=== PATIENT | male | born 1955 | race Two or more races ===

== ENCOUNTER 2020-08-01 13:00 | Inpatient (IN) | payer MEDICAID ==
[2020-08-01] VITALS (9 sets, daily range): BP systolic 104–137; BP diastolic 67–85
[~2020-08-01] VITALS: Ht 170.2 cm; Wt 79.4 kg
[~2020-08-01 13:00] MED LIST: Acetaminophen 650 MG SUPP RECTAL ONE; Azithromycin 500 MG in NS 275 ML IVPB ONE; cefTRIAXone 1 GM in NS 55 ML IV ONE; dexAMETHasone 10mg/ml Inj IV ONE
--- NOTE | 2020-08-01 13:14 | Emergency Room Report ---
History of Present Illness General Chief Complaint: Dyspnea/Respdistress Source: EMS (Marleny Godfrey D.O.) Present Illness HPI 65-year-old male with past medical history of chronic respiratory failure status post trach, left thalamic hemorrhage, diabetes, hypertension, chronically bedridden presents by ambulance with hypoxia. According to EMS, longterm facility staff called 911 secondary to respiratory distress. History is limited secondary patient's clinical condition The patient's symptoms were acute onset, severity was severe, duration since 1 hour. Quality: Hypoxic Patient is full code Past medical history: Hypertension, diabetes, GERD, chronic vent dependence, recent left thalamic hemorrhage Past surgical history: Tracheostom Smoking: Unable to obtain Alcohol use: Unable to obtain Drug use: Unable to obtain Review of systems: ROS is limited secondary to patient's clinical condition Physical Exam: GENERAL: Awake_alert_ nontoxic, no acute distress Spo2 80% on RA -abnormal. Patient is being bagged manually awaiting respiratory therapy. EYES: Pupils reactive. Conjunctiva clear. Horizontal nystagmus. Pale appearing ENT: Trach is in place. No bleeding. No bubbling around the wound. External nose and ear appear normal. Oropharynx clear. Head atraumatic. NECK: No thyromegaly. No midline tenderness. Trach in place, c/d/i, no discharge or bleeding. LUNGS: Coarse breath sounds bilaterally. CARDIAC: Tachycardic rate and rhythm. Normal radial pulses bilaterally. No significant pedal edema. ABDOMEN: Soft, nontender, and nondistended. No rebound/guarding. No hepatosplenomegaly. MSK: Poor muscle tone, contractures with rigidity in extremities. Extremities without asymmetric deformity or swelling. NEUROLOGIC: Awake. Does not follow commands for motor and sensory exam.GCS 2-4-2, protecting airway, intact gag reflex. Withdraws to pain in extremities, groans and opens eyes to sternal rub. SKIN: Warm and dry. No cyanosis or urticaria present. - COORDINATION OF CARE Case was discussed with: Patient , Patient's Physician Any labs and imaging that were ordered were interpreted as part of the medical decision making: Medical Decision Making/Plan: Differential diagnosis includes sepsis / severe sepsis , cellulitis UTI, pneumonia , viral syndrome, gastroenteritis, emergent abdominal infection, among others. Vitals show hypoxia, tachycardia, and fever trach is clean, dry, intact. Patient was initially hypoxic, however when he was placed on a vent at FiO2 of 30%, hypoxia resolved. CXR shows no acute disease. Trach is in place. No pneumothorax. Covid swab is negative. Labs show several abnormalities. Troponin is elevated. EKG shows sinus tachycardia. He has minimal ST depressions in the inferior leads, likely subendocardial ischemia. No acute STEMI. There are T wave inversions in the lateral leads V4 through V6. No STEMI. Labs otherwise demonstrate new onset renal failure with creatinine of 4.2. Patient also has severe leukocytosis with WBC count of 22.2. Suspect bacteremia Sepsis bundle initiated on arrival. Blood cultures, lactate drawn. Lactate was elevated, patient was given not 30 cc/kg IV fluids by bolus due to concern for Covid. Empiric antibiotics were started. Patient will be admitted to the ICU for further care and evaluation. - CRITICAL CARE STATEMENT - Critical care performed 45 minutes) Time is exclusive of separately billable procedures. Time includes: direct patient care, patient reassessment, coordination of patient care, review of patient's medical records, medical consultation, family consultation regarding treatment decisions and documentation of patient care. Organ systems at risk: Cardiac / Circulatory /renal (Marleny Godfrey D.O.) Allergies: Coded Allergies: No Known Allergies (Unverified , 08/01/20) COVID-19 Screening Contact w/high risk pt: No Experienced COVID-19 symptoms?: No COVID-19 Testing performed SLIPCOVER CUTTER: No (Marleny Godfrey D.O.) Physical Exam Vital Signs Date Time Temp Pulse Resp B/P (MAP) Pulse Ox O2 Delivery O2 Flow Rate FiO2 08/01/20 12:53 115 46 106/77 (87) 99 Ambu-Bag Sp02 EP Interpretation: reviewed, abnormal (Marleny Godfrey.Ace) Medical Decision Making Diagnostic Impression: Primary Impression: Respiratory distress Additional Impressions: Renal failure NSTEMI (non-ST elevated myocardial infarction) Metabolic acidosis ER Course Patient signed out to me by previous physician. Patient was accepted for admission to ICU by Dr. Muriel roberts. Awaiting admission. (Fredrick Mckinney M.D.) EKG Diagnostic Results JOE Scribe Text 12-lead EKG (interpreted by me) Time: 1316 Indication: Rhythm analysis Tracing visualized and Interpreted by me. Rhythm: Sinus tachycardia Rate: 111 bpm QTc: 454 Morphology: No_significant_ST_elevations_or_depressions, No STEMI Impression: Sinus tachycardia. ST depressions in the inferior leads. T wave inversions V4 through V6. (Marleny Godfrey D.O.) Rhythm Strip Diag. Results Rhythm Strip Time: 15:20 EP Interpretation: yes Rate: 93 Rhythm: no PVC's, no ectopy (Marleny Godfrey D.O.) Chest X-Ray Diagnostic Results Chest X-Ray Diagnostic Results : JOE Weller Text Chest X-Ray: Views: [ 1 ] view(s) Indication: hypoxia Findings: Normal heart size. Mediastinum normal. No infiltrate. Impression: No acute disease The X-ray(s) were independently viewed and interpreted contemporaneously Electronically signed by Marleny becker DO (Marleny Godfrey D.O.) Reevaluation Time: 15:21 Last Vital Signs Date Time Temp Pulse Resp B/P (MAP) Pulse Ox O2 Delivery O2 Flow Rate FiO2 08/01/20 12:53 115 46 106/77 (87) 99 Ambu-Bag Status: improved (Marleny Godfrey D.O.) Disposition: ADMITTED INPATIENT Admit Decision Time: 15:21 (Marleny Godfrey D.O.) Condition: Critical Marleny Godfrey D.O. Aug 01, 2020 13:14 Fredrick Mckinney M.D. Aug 01, 2020 17:48
[2020-08-01] MEDS ORDERED: Azithromycin 500mg Inj ONE (13:25)
[2020-08-01] MEDS ORDERED: dexAMETHasone 10mg/ml Inj IV ONE (13:25)
[2020-08-01] MEDS ORDERED: Acetaminophen 650 MG SUPP RECTAL ONE (13:25)
[2020-08-01 13:37] LABS: APPEARANCE,URINE CLEAR; BILIRUBIN, URINE NEGATIVE (NEGATIVE); GLUCOSE, URINE (UA) 1+ (NEGATIVE); KETONES,URINE NEGATIVE (NEGATIVE); LEUKOCYTE ESTERASE ,URINE 1+ (NEGATIVE); NITRITE,URINE NEGATIVE (NEGATIVE); PH,URINE 5 (4.5-8.0); PROTEIN,URINE 2+ (NEGATIVE); UROBILINOGEN,URINE NORMAL MG/DL (0.0-1.0)
[2020-08-01 13:57] LABS: INR 1.1 (0.9-1.1)
[2020-08-01 13:58] LABS: HEMATOCRIT 34.1 % (42.0-52.0); HEMOGLOBIN 11.5 G/DL (14.2-18.0); MEAN CORPUSCULAR VOLUME 90 FL (80-99); PLATELET COUNT 183 K/UL (150-450); RED BLOOD COUNT 3.78 M/UL (4.70-6.10); RED CELL DISTRIBUTION WIDTH 16.4 % (11.6-14.8)
[2020-08-01 14:02] LABS: WHITE BLOOD COUNT 22.2 K/UL (4.8-10.8)
[2020-08-01 14:04] LABS: CALCIUM 8.6 MG/DL (8.5-10.1); CREATININE 4.2 MG/DL (0.55-1.30); POTASSIUM 4.9 MMOL/L (3.5-5.1)
[2020-08-01 14:07] LABS: COLOR,URINE YELLOW
[2020-08-01 14:09] LABS: ALBUMIN 2.7 G/DL (3.4-5.0); ALBUMIN/GLOBULIN RATIO 0.6 (1.0-2.7); BILIRUBIN,TOTAL 0.8 MG/DL (0.2-1.0); CKMB 2.7 NG/ML (0.0-3.6)
--- NOTE | 2020-08-01 14:27 | Diagnostic Imaging Report ---
Indication: Cough Technique: One view of the chest Comparison: none Findings: Lungs and pleural spaces are clear. Heart size is normal. There is a tracheostomy Impression: No acute process
[2020-08-01] MEDS ORDERED: Piperacillin/Tazobactam 3.375 GM in NS 110 ML IVPB ONE (14:30)
[2020-08-01] MEDS ORDERED: DOCUSATE SODIU100 MG GT (16:30)
[2020-08-01] MEDS ORDERED: REGLAN10 MG GT (16:30)
[2020-08-01] MEDS ORDERED: GLYCOPYRROLATE2 MG GT (16:30)
[2020-08-01] MEDS ORDERED: COMBIVENT RESPIM4 GM IH (16:30)
[2020-08-01] MEDS ORDERED: ACETAMINOP160 MG/5 M GT (16:30)
[2020-08-01] MEDS ORDERED: ZOFRAN4 M3 GT (16:30)
[2020-08-01] MEDS ORDERED: FUROSEMIDE20 M1 GT (16:30)
[2020-08-01] MEDS ORDERED: METOPROLOL TART50 MG GT (16:30)
--- NOTE | 2020-08-01 18:13 | History and Physical ---
History of Present Illness General Date patient seen: Aug 01, 2020 Reason for Hospitalization: Dyspnea/Respdistress Present Illness HPI Dannie Dias is a 65 yo male with PMH of chronic respiratory failure s/p tracheostomy, left thalamic hemorrhage, diabetes, HTN, bedbound presents from SNF with hypoxia. According to ER physician, patient required bagging on arrival due to hypoxia that improved once patient placed on ventilator. Patient was given IVF bolus, antibiotics. History is limited secondary patient's clinical condition From chart review: Past medical history: Hypertension, diabetes, GERD, chronic vent dependence, recent left thalamic hemorrhage Past surgical history: Tracheostom Smoking: Unable to obtain Alcohol use: Unable to obtain Drug use: Unable to obtain Review of systems: ROS is limited secondary to patient's clinical condition Allergies: Coded Allergies: No Known Allergies (Unverified , 08/01/20) COVID-19 Screening Contact w/high risk pt: No Experienced COVID-19 symptoms?: No Medication History Scheduled Docusate Sodium* (Docusate Sodium*), 100 MG GT TWICE A DAY, (Reported) Furosemide* (Lasix*), 20 MG GT Q12HR, (Reported) Glycopyrrolate (Glycopyrrolate), 1 MG GT Q8HR, (Reported) Ipratropium/Albuterol Sulfate (Combivent Respimat Inhal [place]), 4 GM IH EVERY 2 HOURS, (Reported) Metoclopramide Hcl* (Reglan*), 10 MG ORAL Q6HR, (Reported) Metoprolol Tartrate* (Metoprolol Tartrate*), 50 MG ORAL EVERY 12 HOURS, (Reported) Scheduled PRN Acetaminophen 160MG/5ML* (Acetaminophen*), 20.3 ML GT Q6HR PRN for pain/fever, (Reported) Ondansetron* (Zofran*), 4 MG ORAL Q8HR PRN for Nausea & Vomiting, (Reported) Patient History Limited by: medical condition History Provided By: Medical Record Healthcare decision maker Resuscitation status Advanced Directive on File Physical Exam General Appearance: lethargic Lines, tubes and drains: trach HEENT: normocephalic, atraumatic, mucous membranes moist Neck: normal alignment Respiratory/Chest: rhonchi - bilaterally Cardiovascular/Chest: normal peripheral pulses, regular rhythm Abdomen: soft, no mass, feeding tube Extremities: no edema, no cyanosis Skin Exam: normal pigmentation, warm/dry Neurologic: unresponsiveness Last 24 Hour Vital Signs Date Time Temp Pulse Resp B/P (MAP) Pulse Ox O2 Delivery O2 Flow Rate FiO2 08/01/20 17:28 98.6 95 24 110/72 100 Mechanical Ventilator 40 08/01/20 15:03 98.6 93 27 110/67 100 Mechanical Ventilator 08/01/20 14:33 105 38 40 08/01/20 13:56 98.6 08/01/20 13:26 98 41 30 08/01/20 13:21 100.6 110 27 109/76 99 Mechanical Ventilator 08/01/20 13:08 115 46 Ambu-Bag 08/01/20 12:53 115 46 106/77 (87) 99 Ambu-Bag Laboratory Tests Test 08/01/20 13:10 08/01/20 13:38 White Blood Count 22.2 K/UL (4.8-10.8) *H Red Blood Count 3.78 M/UL (4.70-6.10) L Hemoglobin 11.5 G/DL (14.2-18.0) L Hematocrit 34.1 % (42.0-52.0) L Mean Corpuscular Volume 90 FL (80-99) Mean Corpuscular Hemoglobin 30.3 PG (27.0-31.0) Mean Corpuscular Hemoglobin Concent 33.6 G/DL (32.0-36.0) Red Cell Distribution Width 16.4 % (11.6-14.8) H Platelet Count 183 K/UL (150-450) Mean Platelet Volume 12.3 FL (6.5-10.1) H Neutrophils (%) (Auto) % (45.0-75.0) Lymphocytes (%) (Auto) % (20.0-45.0) Monocytes (%) (Auto) % (1.0-10.0) Eosinophils (%) (Auto) % (0.0-3.0) Basophils (%) (Auto) % (0.0-2.0) Differential Total Cells Counted 100 Neutrophils % (Manual) 84 % (45-75) H Lymphocytes % (Manual) 8 % (20-45) L Monocytes % (Manual) 3 % (1-10) Eosinophils % (Manual) 0 % (0-3) Basophils % (Manual) 0 % (0-2) Band Neutrophils 5 % (0-8) Platelet Estimate Adequate Platelet Morphology Normal Hypochromasia 1+ Anisocytosis 1+ Prothrombin Time 11.8 SEC (9.30-11.50) H Prothromb Time International Ratio 1.1 (0.9-1.1) Activated Partial Thromboplast Time 22 SEC (23-33) L D-Dimer 4.70 mg/L FEU (0.00-0.49) H Urine Color Yellow Urine Appearance Clear Urine pH 5 (4.5-8.0) Urine Specific [place] 1.015 (1.005-1.035) Urine Protein 2+ (NEGATIVE) H Urine Glucose (UA) 1+ (NEGATIVE) H Urine Ketones Negative (NEGATIVE) Urine Blood 1+ (NEGATIVE) H Urine Nitrite Negative (NEGATIVE) Urine Bilirubin Negative (NEGATIVE) Urine Urobilinogen Normal MG/DL (0.0-1.0) Urine Leukocyte Esterase 1+ (NEGATIVE) H Urine RBC 0-2 /HPF (0 - 0) H Urine WBC 2-4 /HPF (0 - 0) Urine Squamous Epithelial Cells Occasional /LPF Urine Bacteria Occasional /HPF (NONE) Sodium Level 149 MMOL/L (136-145) H Potassium Level 4.9 MMOL/L (3.5-5.1) Chloride Level 111 MMOL/L (98-107) H Carbon Dioxide Level 13 MMOL/L (21-32) L Anion Gap 25 mmol/L (5-15) H Blood Urea Nitrogen 346 mg/dL (7-18) H Creatinine 4.2 MG/DL (0.55-1.30) H Estimat Glomerular Filtration Rate 14.3 mL/min (>60) Glucose Level 202 MG/DL (74-106) H Lactic Acid Level 1.40 mmol/L (0.4-2.0) Calcium Level 8.6 MG/DL (8.5-10.1) Phosphorus Level 10.0 MG/DL (2.5-4.9) H Magnesium Level 3.5 MG/DL (1.8-2.4) H Ferritin 730 NG/ML (8-388) H Total Bilirubin 0.8 MG/DL (0.2-1.0) Aspartate Amino Transf (AST/SGOT) 40 U/L (15-37) H Alanine Aminotransferase (ALT/SGPT) 261 U/L (12-78) H Alkaline Phosphatase 235 U/L (46-116) H Lactate Dehydrogenase 213 U/L (81-234) Total Creatine Kinase 98 U/L (26-308) Creatine Kinase MB 2.7 NG/ML (0.0-3.6) Creatine Kinase MB Relative Index 2.7 Troponin I 0.806 ng/mL (0.000-0.056) C-Reactive Protein, Quantitative 0.9 mg/dL (0.00-0.90) Pro-B-Type Natriuretic Peptide 1395 pg/mL (0-125) H Total Protein 7.6 G/DL (6.4-8.2) Albumin 2.7 G/DL (3.4-5.0) L Globulin 4.9 g/dL Albumin/Globulin Ratio 0.6 (1.0-2.7) L Arterial Blood pH 7.241 (7.350-7.450) Arterial Blood Partial Pressure CO2 23.5 mmHg (35.0-45.0) *L Arterial Blood Partial Pressure O2 84.0 mmHg (75.0-100.0) Arterial Blood HCO3 9.9 mmol/L (22.0-26.0) *L Arterial Blood Oxygen Saturation 95.5 % (95-100) Arterial Blood Base Excess -15.7 (-2-2) *L Russ Test Positive Microbiology Date/Time Source Procedure Growth Status 08/01/20 16:06 Nasal Nares - Final Complete 08/01/20 16:06 Nasal Nares - Final Complete 08/01/20 13:10 Nasopharynx SARS-CoV-2 RdRp Gene Assay - Final Complete Height (Feet): 5 Height (Inches): 10.00 Weight (Pounds): 185 Objective Narrative CXR 08/01/2020 Procedure: XRAY Chest 1v Indication: Cough Technique: One view of the chest Comparison: none Findings: Lungs and pleural spaces are clear. Heart size is normal. There is a tracheostomy Impression: No acute process Assessment/Plan Assessment/Plan: #Sepsis - high WBC count, lactate elevated. HDS currently. #UTI #NSTEMI - may be demand ischemia in sepsis #Acute kidney injury - may be sepsis related - s/p CTX, zosyn, IVF in ED - cefepime - low threshold to broaden antibiotics - f/u cultures - IVF - trend troponin - ID consult Dr. Stone - Nephro consult Dr. Sherman - Cardiology consult Dr. Mari #Chronic respiratory failure #s/p tracheostomy #PEG status - Ventilator dependent - In ICU for ventilator - check ABG in AM - CXR clear, low suspicion for pneumonia - Covid negative - pulmonary consult Dr. Nunez - tube feed - nutrition consult #Hx of thalamic infarct - nonverbal, lethargic currently - neurology consult Dr. Hale #Diabetes - ISS Fluids: IVF Diet: tube feed DVT ppx: heparin Code: FULL I spent 74 minutes on this patient's case, and 40 minutes were dedicated to counseling and/or care coordination. Discussed with ID and pulmonology consultants. Time of note may not reflect time of encounter Davidson Guzmán M.D. Aug 01, 2020 18:13
[2020-08-01] MEDS: Cefepime HCl 1 GM in D5W 55 ML IVPB SCH (20:09)
[2020-08-01] MEDS: Heparin 5000 units/ml inj SUBQ SCH (20:10)
[2020-08-01] MEDS: NovoLOG Insulin Flexpen SUBQ SCH (20:41)
--- NOTE | 2020-08-01 21:01 | Consultation ---
DATE OF CONSULTATION: 08/01/2020 PULMONARY CONSULTATION CONSULTING PHYSICIAN: Jack Nunez MD HISTORY OF PRESENT ILLNESS: This is a 65-year-old male with a history of chronic respiratory failure with chronic tracheostomy in place, who was sent in by paramedics due to hypoxemia. Patient is a care home resident. He is unable to provide any questions or provide any answers. Patient was noted to have a tracheostomy in place. He is placed currently in the ICU. PAST MEDICAL HISTORY: Notable for chronic respiratory failure, chronic tracheostomy, previous CVA, diabetes mellitus, hypertension, bedridden status, care home resident. HOME MEDICATIONS: Reviewed and reconciled in the chart. REVIEW OF SYSTEMS: Not obtainable. SMOKING HISTORY: Not known. SOCIAL HISTORY: Not known. MEDICATIONS: His list of current medications include azithromycin, cefepime, Rocephin, Zosyn, Tylenol, and Decadron. PHYSICAL EXAMINATION: GENERAL: Reveals a 65-year-old male. HEENT: Unremarkable. Tracheostomy site is clean. CHEST: Clear breath sounds bilaterally. ABDOMEN: Soft. EXTREMITIES: There is no edema. NEUROLOGIC: Nonfocal. VITAL SIGNS: Blood pressure , heart rate is 94, respirations 18. Vent settings AC FiO2 40%, saturation 100%. X-ray chest shows clear lung johnson bilaterally. Tracheostomy site is noted. COVID testing is negative so far. LABORATORY DATA: Lab testing is notable for white count 22,000. Sodium 149, creatinine 4.2. Coags show D-dimer of 4.7. ABG, pH 7.24, pCO2 23, pO2 84. IMPRESSION: 1. Chronic respiratory failure. 2. Metabolic acidosis. 3. Renal failure. 4. Leukocytosis. 5. Sepsis. DISCUSSION: Admit to the hospital. Agree with broad spectrum antibiotics. We will continue AC mode. Patient will need bicarbonate supplementation. Recommend Nephrology consultation. We will follow carefully. Jack Nunez M.D. DR: ALISHA JOB#: [id number] CC:
--- NOTE | 2020-08-01 22:10 | Neurology Progress Note ---
Interim History Interim History Interim History 65 yo male with PMH of chronic respiratory failure s/p tracheostomy, left thalamic hemorrhage, diabetes, HTN, bedbound presents from SNF with hypoxia. According to ER physician, patient required bagging on arrival due to hypoxia that improved once patient placed on ventilator. Patient was given IVF bolus, antibiotics. History is limited secondary patient's clinical condition Past medical history: Hypertension, diabetes, GERD, chronic vent dependence, recent left thalamic hemorrhage Past surgical history: Tracheostomy Objective Physical Exam Last Vital Signs Date Time Temp Pulse Resp B/P (MAP) Pulse Ox O2 Delivery O2 Flow Rate FiO2 08/01/20 21:14 Mechanical Ventilator 08/01/20 20:00 40 08/01/20 19:46 95 29 08/01/20 19:30 98.6 108/75 100 Laboratory Tests Test 08/01/20 13:10 08/01/20 13:38 White Blood Count 22.2 K/UL (4.8-10.8) *H Red Blood Count 3.78 M/UL (4.70-6.10) L Hemoglobin 11.5 G/DL (14.2-18.0) L Hematocrit 34.1 % (42.0-52.0) L Mean Corpuscular Volume 90 FL (80-99) Mean Corpuscular Hemoglobin 30.3 PG (27.0-31.0) Mean Corpuscular Hemoglobin Concent 33.6 G/DL (32.0-36.0) Red Cell Distribution Width 16.4 % (11.6-14.8) H Platelet Count 183 K/UL (150-450) Mean Platelet Volume 12.3 FL (6.5-10.1) H Neutrophils (%) (Auto) % (45.0-75.0) Lymphocytes (%) (Auto) % (20.0-45.0) Monocytes (%) (Auto) % (1.0-10.0) Eosinophils (%) (Auto) % (0.0-3.0) Basophils (%) (Auto) % (0.0-2.0) Differential Total Cells Counted 100 Neutrophils % (Manual) 84 % (45-75) H Lymphocytes % (Manual) 8 % (20-45) L Monocytes % (Manual) 3 % (1-10) Eosinophils % (Manual) 0 % (0-3) Basophils % (Manual) 0 % (0-2) Band Neutrophils 5 % (0-8) Platelet Estimate Adequate Platelet Morphology Normal Hypochromasia 1+ Anisocytosis 1+ Prothrombin Time 11.8 SEC (9.30-11.50) H Prothromb Time International Ratio 1.1 (0.9-1.1) Activated Partial Thromboplast Time 22 SEC (23-33) L D-Dimer 4.70 mg/L FEU (0.00-0.49) H Urine Color Yellow Urine Appearance Clear Urine pH 5 (4.5-8.0) Urine Specific [place] 1.015 (1.005-1.035) Urine Protein 2+ (NEGATIVE) H Urine Glucose (UA) 1+ (NEGATIVE) H Urine Ketones Negative (NEGATIVE) Urine Blood 1+ (NEGATIVE) H Urine Nitrite Negative (NEGATIVE) Urine Bilirubin Negative (NEGATIVE) Urine Urobilinogen Normal MG/DL (0.0-1.0) Urine Leukocyte Esterase 1+ (NEGATIVE) H Urine RBC 0-2 /HPF (0 - 0) H Urine WBC 2-4 /HPF (0 - 0) Urine Squamous Epithelial Cells Occasional /LPF Urine Bacteria Occasional /HPF (NONE) Sodium Level 149 MMOL/L (136-145) H Potassium Level 4.9 MMOL/L (3.5-5.1) Chloride Level 111 MMOL/L (98-107) H Carbon Dioxide Level 13 MMOL/L (21-32) L Anion Gap 25 mmol/L (5-15) H Blood Urea Nitrogen 346 mg/dL (7-18) H Creatinine 4.2 MG/DL (0.55-1.30) H Estimat Glomerular Filtration Rate 14.3 mL/min (>60) Glucose Level 202 MG/DL (74-106) H Lactic Acid Level 1.40 mmol/L (0.4-2.0) Calcium Level 8.6 MG/DL (8.5-10.1) Phosphorus Level 10.0 MG/DL (2.5-4.9) H Magnesium Level 3.5 MG/DL (1.8-2.4) H Ferritin 730 NG/ML (8-388) H Total Bilirubin 0.8 MG/DL (0.2-1.0) Aspartate Amino Transf (AST/SGOT) 40 U/L (15-37) H Alanine Aminotransferase (ALT/SGPT) 261 U/L (12-78) H Alkaline Phosphatase 235 U/L (46-116) H Lactate Dehydrogenase 213 U/L (81-234) Total Creatine Kinase 98 U/L (26-308) Creatine Kinase MB 2.7 NG/ML (0.0-3.6) Creatine Kinase MB Relative Index 2.7 Troponin I 0.806 ng/mL (0.000-0.056) C-Reactive Protein, Quantitative 0.9 mg/dL (0.00-0.90) Pro-B-Type Natriuretic Peptide 1395 pg/mL (0-125) H Total Protein 7.6 G/DL (6.4-8.2) Albumin 2.7 G/DL (3.4-5.0) L Globulin 4.9 g/dL Albumin/Globulin Ratio 0.6 (1.0-2.7) L Arterial Blood pH 7.241 (7.350-7.450) Arterial Blood Partial Pressure CO2 23.5 mmHg (35.0-45.0) *L Arterial Blood Partial Pressure O2 84.0 mmHg (75.0-100.0) Arterial Blood HCO3 9.9 mmol/L (22.0-26.0) *L Arterial Blood Oxygen Saturation 95.5 % (95-100) Arterial Blood Base Excess -15.7 (-2-2) *L Russ Test Positive Impression/Recommendations Problems: (1) Respiratory distress (2) Renal failure (3) Metabolic acidosis (4) NSTEMI (non-ST elevated myocardial infarction) (5) Sepsis Diagnostic Impression Encephalopathy, likely metabolic sepsis hx of left thalamic hemorrhage likely from htn icu level map > 65 monitor mental status cont atb fu cultures ok for heparin SC given ich is chronic Pedro Hale MD Aug 01, 2020 22:10
[2020-08-02] VITALS (24 sets, daily range): BP systolic 100–147; BP diastolic 65–86
[2020-08-02 05:05] LABS: HEMATOCRIT 29.4 % (42.0-52.0); MEAN CORPUSCULAR VOLUME 89 FL (80-99); PLATELET COUNT 127 K/UL (150-450); RED CELL DISTRIBUTION WIDTH 15.8 % (11.6-14.8); WHITE BLOOD COUNT 17.6 K/UL (4.8-10.8)
[2020-08-02 05:22] LABS: CREATININE 4.1 MG/DL (0.55-1.30); POTASSIUM 3.5 MMOL/L (3.5-5.1)
[2020-08-02] MEDS: NovoLOG Insulin Flexpen SUBQ SCH (05:29)
[2020-08-02] MEDS: Heparin 5000 units/ml inj SUBQ SCH ×2 (08:32→20:38)
--- NOTE | 2020-08-02 09:00 | Consultation ---
History of Present Illness General Chief Complaint: Dyspnea/Respdistress Reason for Consultation: AUNDREA Present Illness HPI 65 yo male with PMH of chronic respiratory failure s/p tracheostomy, left thalamic hemorrhage, diabetes, HTN, bedbound presents from SNF with hypoxia. According to ER physician, patient required bagging on arrival due to hypoxia that improved once patient placed on ventilator. Patient was given IVF bolus, antibiotics. History is limited secondary patient's clinical condition Past medical history: Hypertension, diabetes, GERD, chronic vent dependence, recent left thalamic hemorrhage Past surgical history: Tracheostomy Allergies: Coded Allergies: No Known Allergies (Unverified , 08/01/20) Medication History Scheduled Docusate Sodium* (Docusate Sodium*), 100 MG GT TWICE A DAY, (Reported) Furosemide* (Lasix*), 20 MG GT Q12HR, (Reported) Glycopyrrolate (Glycopyrrolate), 1 MG GT Q8HR, (Reported) Ipratropium/Albuterol Sulfate (Combivent Respimat Inhal [place]), 4 GM IH EVERY 2 HOURS, (Reported) Metoclopramide Hcl* (Reglan*), 10 MG ORAL Q6HR, (Reported) Metoprolol Tartrate* (Metoprolol Tartrate*), 50 MG ORAL EVERY 12 HOURS, (Reported) Scheduled PRN Acetaminophen 160MG/5ML* (Acetaminophen*), 20.3 ML GT Q6HR PRN for pain/fever, (Reported) Ondansetron* (Zofran*), 4 MG ORAL Q8HR PRN for Nausea & Vomiting, (Reported) Patient History Healthcare decision maker Resuscitation status Advanced Directive on File Review of Systems ROS Narrative unable to obtain due to AMS Physical Exam General Appearance: lethargic Lines, tubes and drains: peripheral HEENT: normocephalic, atraumatic Neck: non-tender, trach Respiratory/Chest: chest wall non-tender, rhonchi - bilaterally Cardiovascular/Chest: normal peripheral pulses, normal rate Abdomen: normal bowel sounds, non tender Extremities: normal range of motion Last 24 Hour Vital Signs Date Time Temp Pulse Resp B/P (MAP) Pulse Ox O2 Delivery O2 Flow Rate FiO2 08/02/20 07:00 105 26 119/82 (94) 100 08/02/20 06:00 104 28 127/80 (96) 100 08/02/20 05:00 106 30 147/86 (106) 100 08/02/20 04:00 102 08/02/20 04:00 40 08/02/20 04:00 Mechanical Ventilator 08/02/20 04:00 98.6 101 30 111/77 (88) 100 08/02/20 03:15 105 27 40 08/02/20 03:00 100 29 114/76 (89) 100 08/02/20 02:00 101 30 119/77 (91) 100 08/02/20 01:00 99 25 137/83 (101) 100 08/02/20 00:06 101 08/02/20 00:00 99.0 99 26 118/78 (91) 100 08/02/20 00:00 40 08/02/20 00:00 Mechanical Ventilator 08/01/20 23:31 97 31 40 08/01/20 23:00 101 28 130/79 (96) 100 08/01/20 22:00 95 27 124/85 (98) 100 08/01/20 21:14 Mechanical Ventilator 08/01/20 21:00 96 26 125/81 (96) 100 08/01/20 20:00 40 08/01/20 20:00 98.2 100 24 126/72 (90) 100 08/01/20 20:00 Mechanical Ventilator 08/01/20 19:55 101 08/01/20 19:46 95 29 40 08/01/20 19:39 99 20 137/84 (101) 100 08/01/20 19:30 98.6 91 18 108/75 100 Mechanical Ventilator 40 08/01/20 19:10 98.6 97 18 104/69 100 Mechanical Ventilator 40 08/01/20 17:28 98.6 95 24 110/72 100 Mechanical Ventilator 40 08/01/20 15:03 98.6 93 27 110/67 100 Mechanical Ventilator 08/01/20 14:33 105 38 40 08/01/20 13:56 98.6 08/01/20 13:26 98 41 30 08/01/20 13:21 100.6 110 27 109/76 99 Mechanical Ventilator 08/01/20 13:08 115 46 Ambu-Bag 08/01/20 12:53 115 46 106/77 (87) 99 Ambu-Bag Intake and Output 08/01/20 08/02/20 19:00 07:00 Intake Total 1440 ml 730 ml Output Total 1 ml 1520 ml Balance 1439 ml -790 ml Intake IV Total 1440 ml 730 ml Output Urine Total 1 ml 1520 ml # Bowel Movements 3 Laboratory Tests Test 08/01/20 13:10 08/01/20 13:38 08/01/20 23:00 08/02/20 03:50 White Blood Count 22.2 K/UL (4.8-10.8) *H 17.6 K/UL (4.8-10.8) H Red Blood Count 3.78 M/UL (4.70-6.10) L 3.30 M/UL (4.70-6.10) L Hemoglobin 11.5 G/DL (14.2-18.0) L 10.0 G/DL (14.2-18.0) L Hematocrit 34.1 % (42.0-52.0) L 29.4 % (42.0-52.0) L Mean Corpuscular Volume 90 FL (80-99) 89 FL (80-99) Mean Corpuscular Hemoglobin 30.3 PG (27.0-31.0) 30.2 PG (27.0-31.0) Mean Corpuscular Hemoglobin Concent 33.6 G/DL (32.0-36.0) 34.0 G/DL (32.0-36.0) Red Cell Distribution Width 16.4 % (11.6-14.8) H 15.8 % (11.6-14.8) H Platelet Count 183 K/UL (150-450) 127 K/UL (150-450) L Mean Platelet Volume 12.3 FL (6.5-10.1) H 11.9 FL (6.5-10.1) H Neutrophils (%) (Auto) % (45.0-75.0) % (45.0-75.0) Lymphocytes (%) (Auto) % (20.0-45.0) % (20.0-45.0) Monocytes (%) (Auto) % (1.0-10.0) % (1.0-10.0) Eosinophils (%) (Auto) % (0.0-3.0) % (0.0-3.0) Basophils (%) (Auto) % (0.0-2.0) % (0.0-2.0) Differential Total Cells Counted 100 Neutrophils % (Manual) 84 % (45-75) H Pending Lymphocytes % (Manual) 8 % (20-45) L Pending Monocytes % (Manual) 3 % (1-10) Eosinophils % (Manual) 0 % (0-3) Basophils % (Manual) 0 % (0-2) Band Neutrophils 5 % (0-8) Platelet Estimate Adequate Pending Platelet Morphology Normal Pending Hypochromasia 1+ Anisocytosis 1+ Prothrombin Time 11.8 SEC (9.30-11.50) H Prothromb Time International Ratio 1.1 (0.9-1.1) Activated Partial Thromboplast Time 22 SEC (23-33) L D-Dimer 4.70 mg/L FEU (0.00-0.49) H Urine Color Yellow Urine Appearance Clear Urine pH 5 (4.5-8.0) Urine Specific [place] 1.015 (1.005-1.035) Urine Protein 2+ (NEGATIVE) H Urine Glucose (UA) 1+ (NEGATIVE) H Urine Ketones Negative (NEGATIVE) Urine Blood 1+ (NEGATIVE) H Urine Nitrite Negative (NEGATIVE) Urine Bilirubin Negative (NEGATIVE) Urine Urobilinogen Normal MG/DL (0.0-1.0) Urine Leukocyte Esterase 1+ (NEGATIVE) H Urine RBC 0-2 /HPF (0 - 0) H Urine WBC 2-4 /HPF (0 - 0) Urine Squamous Epithelial Cells Occasional /LPF Urine Bacteria Occasional /HPF (NONE) Sodium Level 149 MMOL/L (136-145) H 154 MMOL/L (136-145) H Potassium Level 4.9 MMOL/L (3.5-5.1) 3.5 MMOL/L (3.5-5.1) Chloride Level 111 MMOL/L (98-107) H 116 MMOL/L (98-107) H Carbon Dioxide Level 13 MMOL/L (21-32) L 11 MMOL/L (21-32) L Anion Gap 25 mmol/L (5-15) H 27 mmol/L (5-15) H Blood Urea Nitrogen 346 mg/dL (7-18) H 343 mg/dL (7-18) H Creatinine 4.2 MG/DL (0.55-1.30) H 4.1 MG/DL (0.55-1.30) H Estimat Glomerular Filtration Rate 14.3 mL/min (>60) 14.7 mL/min (>60) Glucose Level 202 MG/DL (74-106) H 144 MG/DL (74-106) H Lactic Acid Level 1.40 mmol/L (0.4-2.0) 0.90 mmol/L (0.4-2.0) Calcium Level 8.6 MG/DL (8.5-10.1) 8.0 MG/DL (8.5-10.1) L Phosphorus Level 10.0 MG/DL (2.5-4.9) H Magnesium Level 3.5 MG/DL (1.8-2.4) H Ferritin 730 NG/ML (8-388) H Total Bilirubin 0.8 MG/DL (0.2-1.0) Aspartate Amino Transf (AST/SGOT) 40 U/L (15-37) H Alanine Aminotransferase (ALT/SGPT) 261 U/L (12-78) H Alkaline Phosphatase 235 U/L (46-116) H Lactate Dehydrogenase 213 U/L (81-234) Total Creatine Kinase 98 U/L (26-308) Creatine Kinase MB 2.7 NG/ML (0.0-3.6) Creatine Kinase MB Relative Index 2.7 Troponin I 0.806 ng/mL (0.000-0.056) 0.551 ng/mL (0.000-0.056) C-Reactive Protein, Quantitative 0.9 mg/dL (0.00-0.90) Pro-B-Type Natriuretic Peptide 1395 pg/mL (0-125) H Total Protein 7.6 G/DL (6.4-8.2) Albumin 2.7 G/DL (3.4-5.0) L Globulin 4.9 g/dL Albumin/Globulin Ratio 0.6 (1.0-2.7) L Arterial Blood pH 7.241 (7.350-7.450) Arterial Blood Partial Pressure CO2 23.5 mmHg (35.0-45.0) *L Arterial Blood Partial Pressure O2 84.0 mmHg (75.0-100.0) Arterial Blood HCO3 9.9 mmol/L (22.0-26.0) *L Arterial Blood Oxygen Saturation 95.5 % (95-100) Arterial Blood Base Excess -15.7 (-2-2) *L Russ Test Positive Urine Random Sodium 39 mmol/L (20-110) Urine Creatinine 22.9 MG/DL (30.0-125.0) L Test 08/02/20 05:00 08/02/20 08:12 Stool Occult Blood Positive (NEGATIVE) Arterial Blood pH 7.241 (7.350-7.450) Arterial Blood Partial Pressure CO2 20.9 mmHg (35.0-45.0) *L Arterial Blood Partial Pressure O2 193.9 mmHg (75.0-100.0) H Arterial Blood HCO3 8.8 mmol/L (22.0-26.0) *L Arterial Blood Oxygen Saturation 98.8 % (95-100) Arterial Blood Base Excess -16.7 (-2-2) *L Russ Test Positive Microbiology Date/Time Source Procedure Growth Status 08/02/20 05:00 Stool Clostridium difficile Toxin Assay - Final Complete 08/01/20 16:06 Nasal Nares - Final Complete 08/01/20 16:06 Nasal Nares - Final Complete 08/01/20 13:10 Nasopharynx SARS-CoV-2 RdRp Gene Assay - Final Complete Height (Feet): 5 Height (Inches): 7.00 Weight (Pounds): 175 Medications Current Medications Medications (Trade) Dose Ordered Sig/Maegan Route PRN Reason Start Time Stop Time Status Last Admin Dose Admin Cefepime HCl 1 gm/ Dextrose 55 ml @ 110 mls/hr Q24H IVPB 08/01/20 21:00 08/08/20 20:59 08/01/20 20:09 Chlorhexidine Gluconate (Deisy-Hex 2%) 1 applic BIOTEC TOPIC 08/02/20 21:00 10/31/20 20:59 Dextrose (Dextrose 50%) 25 ml Q30M PRN IV Hypoglycemia 08/01/20 18:30 10/30/20 18:29 Dextrose (Dextrose 50%) 50 ml Q30M PRN IV Hypoglycemia 08/01/20 18:30 10/30/20 18:29 Heparin Sodium (Porcine) (Heparin 5000 units/ml) 5,000 units EVERY 12 HOURS SUBQ 08/01/20 21:00 09/15/20 20:59 08/02/20 08:32 Insulin Aspart (NovoLOG) BEFORE MEALS AND HS SUBQ 08/01/20 21:00 10/30/20 20:59 08/02/20 05:29 Sodium Chloride 1,000 ml @ 75 mls/hr [id number] IV 08/01/20 19:30 08/31/20 19:29 08/02/20 08:32 Assessment/Plan Diagnosis [place]: #CKD 5 on intermittent HD per daughter #Uremia #Anemia #Pneumonia #sepsis - per discussion with daughter - HD is in line with goals of care - plan for HD line placement and HD tomorrow - for now continue bicarb drip - monitor ABG - antibiotics per ID - avoid nephrotoxins - monitor UOP - monitor electrolytes time spent 65 min Gladys Sherman M.D. Aug 02, 2020 09:00
--- NOTE | 2020-08-02 09:56 | Neurology Progress Note ---
Interim History Interim History Interim History remains on trach tachy, increased RR grimace to pain Objective Physical Exam Last Vital Signs Date Time Temp Pulse Resp B/P (MAP) Pulse Ox O2 Delivery O2 Flow Rate FiO2 08/02/20 07:13 110 32 40 08/02/20 07:00 119/82 (94) 100 08/02/20 04:00 Mechanical Ventilator 08/02/20 04:00 98.6 Laboratory Tests Test 08/01/20 13:10 08/01/20 13:38 08/01/20 23:00 08/02/20 03:50 White Blood Count 22.2 K/UL (4.8-10.8) *H 17.6 K/UL (4.8-10.8) H Red Blood Count 3.78 M/UL (4.70-6.10) L 3.30 M/UL (4.70-6.10) L Hemoglobin 11.5 G/DL (14.2-18.0) L 10.0 G/DL (14.2-18.0) L Hematocrit 34.1 % (42.0-52.0) L 29.4 % (42.0-52.0) L Mean Corpuscular Volume 90 FL (80-99) 89 FL (80-99) Mean Corpuscular Hemoglobin 30.3 PG (27.0-31.0) 30.2 PG (27.0-31.0) Mean Corpuscular Hemoglobin Concent 33.6 G/DL (32.0-36.0) 34.0 G/DL (32.0-36.0) Red Cell Distribution Width 16.4 % (11.6-14.8) H 15.8 % (11.6-14.8) H Platelet Count 183 K/UL (150-450) 127 K/UL (150-450) L Mean Platelet Volume 12.3 FL (6.5-10.1) H 11.9 FL (6.5-10.1) H Neutrophils (%) (Auto) % (45.0-75.0) % (45.0-75.0) Lymphocytes (%) (Auto) % (20.0-45.0) % (20.0-45.0) Monocytes (%) (Auto) % (1.0-10.0) % (1.0-10.0) Eosinophils (%) (Auto) % (0.0-3.0) % (0.0-3.0) Basophils (%) (Auto) % (0.0-2.0) % (0.0-2.0) Differential Total Cells Counted 100 Neutrophils % (Manual) 84 % (45-75) H Pending Lymphocytes % (Manual) 8 % (20-45) L Pending Monocytes % (Manual) 3 % (1-10) Eosinophils % (Manual) 0 % (0-3) Basophils % (Manual) 0 % (0-2) Band Neutrophils 5 % (0-8) Platelet Estimate Adequate Pending Platelet Morphology Normal Pending Hypochromasia 1+ Anisocytosis 1+ Prothrombin Time 11.8 SEC (9.30-11.50) H Prothromb Time International Ratio 1.1 (0.9-1.1) Activated Partial Thromboplast Time 22 SEC (23-33) L D-Dimer 4.70 mg/L FEU (0.00-0.49) H Urine Color Yellow Urine Appearance Clear Urine pH 5 (4.5-8.0) Urine Specific [place] 1.015 (1.005-1.035) Urine Protein 2+ (NEGATIVE) H Urine Glucose (UA) 1+ (NEGATIVE) H Urine Ketones Negative (NEGATIVE) Urine Blood 1+ (NEGATIVE) H Urine Nitrite Negative (NEGATIVE) Urine Bilirubin Negative (NEGATIVE) Urine Urobilinogen Normal MG/DL (0.0-1.0) Urine Leukocyte Esterase 1+ (NEGATIVE) H Urine RBC 0-2 /HPF (0 - 0) H Urine WBC 2-4 /HPF (0 - 0) Urine Squamous Epithelial Cells Occasional /LPF Urine Bacteria Occasional /HPF (NONE) Sodium Level 149 MMOL/L (136-145) H 154 MMOL/L (136-145) H Potassium Level 4.9 MMOL/L (3.5-5.1) 3.5 MMOL/L (3.5-5.1) Chloride Level 111 MMOL/L (98-107) H 116 MMOL/L (98-107) H Carbon Dioxide Level 13 MMOL/L (21-32) L 11 MMOL/L (21-32) L Anion Gap 25 mmol/L (5-15) H 27 mmol/L (5-15) H Blood Urea Nitrogen 346 mg/dL (7-18) H 343 mg/dL (7-18) H Creatinine 4.2 MG/DL (0.55-1.30) H 4.1 MG/DL (0.55-1.30) H Estimat Glomerular Filtration Rate 14.3 mL/min (>60) 14.7 mL/min (>60) Glucose Level 202 MG/DL (74-106) H 144 MG/DL (74-106) H Lactic Acid Level 1.40 mmol/L (0.4-2.0) 0.90 mmol/L (0.4-2.0) Calcium Level 8.6 MG/DL (8.5-10.1) 8.0 MG/DL (8.5-10.1) L Phosphorus Level 10.0 MG/DL (2.5-4.9) H Magnesium Level 3.5 MG/DL (1.8-2.4) H Ferritin 730 NG/ML (8-388) H Total Bilirubin 0.8 MG/DL (0.2-1.0) Aspartate Amino Transf (AST/SGOT) 40 U/L (15-37) H Alanine Aminotransferase (ALT/SGPT) 261 U/L (12-78) H Alkaline Phosphatase 235 U/L (46-116) H Lactate Dehydrogenase 213 U/L (81-234) Total Creatine Kinase 98 U/L (26-308) Creatine Kinase MB 2.7 NG/ML (0.0-3.6) Creatine Kinase MB Relative Index 2.7 Troponin I 0.806 ng/mL (0.000-0.056) 0.551 ng/mL (0.000-0.056) C-Reactive Protein, Quantitative 0.9 mg/dL (0.00-0.90) Pro-B-Type Natriuretic Peptide 1395 pg/mL (0-125) H Total Protein 7.6 G/DL (6.4-8.2) Albumin 2.7 G/DL (3.4-5.0) L Globulin 4.9 g/dL Albumin/Globulin Ratio 0.6 (1.0-2.7) L Arterial Blood pH 7.241 (7.350-7.450) Arterial Blood Partial Pressure CO2 23.5 mmHg (35.0-45.0) *L Arterial Blood Partial Pressure O2 84.0 mmHg (75.0-100.0) Arterial Blood HCO3 9.9 mmol/L (22.0-26.0) *L Arterial Blood Oxygen Saturation 95.5 % (95-100) Arterial Blood Base Excess -15.7 (-2-2) *L Russ Test Positive Urine Random Sodium 39 mmol/L (20-110) Urine Creatinine 22.9 MG/DL (30.0-125.0) L Test 08/02/20 05:00 08/02/20 08:12 Stool Occult Blood Positive (NEGATIVE) Arterial Blood pH 7.241 (7.350-7.450) Arterial Blood Partial Pressure CO2 20.9 mmHg (35.0-45.0) *L Arterial Blood Partial Pressure O2 193.9 mmHg (75.0-100.0) H Arterial Blood HCO3 8.8 mmol/L (22.0-26.0) *L Arterial Blood Oxygen Saturation 98.8 % (95-100) Arterial Blood Base Excess -16.7 (-2-2) *L Russ Test Positive Neurologic Exam Objective trach on vet tachy grimaces to pain cc 35 min Impression/Recommendations Problems: (1) Respiratory distress (2) Renal failure (3) Metabolic acidosis (4) NSTEMI (non-ST elevated myocardial infarction) (5) Sepsis Diagnostic Impression Encephalopathy, likely metabolic sepsis hx of left thalamic hemorrhage likely from htn icu level map > 65 monitor mental status cont atb fu cultures ok for heparin SC given ich is chronic Pedro Hale MD Aug 02, 2020 09:56
[2020-08-02] MEDS ORDERED: Metoprolol Tartrate 50mg tab GT SCH (10:00)
--- NOTE | 2020-08-02 11:03 | Pulmonology Progress Note ---
Subjective Interval Events: No new events Constitutional: Reports: no symptoms HEENT: Repors: no symptoms Respiratory: Reports: no symptoms Cardiovascular: Reports: no symptoms Gastrointestinal/Abdominal: Reports: no symptoms Allergies: Coded Allergies: No Known Allergies (Unverified , 08/01/20) Objective Last 24 Hour Vital Signs Date Time Temp Pulse Resp B/P (MAP) Pulse Ox O2 Delivery O2 Flow Rate FiO2 08/02/20 10:00 112 33 108/76 (87) 99 08/02/20 09:00 111 27 108/78 (88) 100 08/02/20 08:00 Mechanical Ventilator 08/02/20 08:00 40 08/02/20 08:00 98.3 110 33 112/77 (89) 100 08/02/20 08:00 109 08/02/20 07:13 110 32 40 08/02/20 07:00 105 26 119/82 (94) 100 08/02/20 06:00 104 28 127/80 (96) 100 08/02/20 05:00 106 30 147/86 (106) 100 08/02/20 04:00 102 08/02/20 04:00 40 08/02/20 04:00 Mechanical Ventilator 08/02/20 04:00 98.6 101 30 111/77 (88) 100 08/02/20 03:15 105 27 40 08/02/20 03:00 100 29 114/76 (89) 100 08/02/20 02:00 101 30 119/77 (91) 100 08/02/20 01:00 99 25 137/83 (101) 100 08/02/20 00:06 101 08/02/20 00:00 99.0 99 26 118/78 (91) 100 08/02/20 00:00 40 08/02/20 00:00 Mechanical Ventilator 08/01/20 23:31 97 31 40 08/01/20 23:00 101 28 130/79 (96) 100 08/01/20 22:00 95 27 124/85 (98) 100 08/01/20 21:14 Mechanical Ventilator 08/01/20 21:00 96 26 125/81 (96) 100 08/01/20 20:00 40 08/01/20 20:00 98.2 100 24 126/72 (90) 100 08/01/20 20:00 Mechanical Ventilator 08/01/20 19:55 101 12/22/20 19:46 95 29 40 08/01/20 19:39 99 20 137/84 (101) 100 08/01/20 19:30 98.6 91 18 108/75 100 Mechanical Ventilator 40 08/01/20 19:10 98.6 97 18 104/69 100 Mechanical Ventilator 40 08/01/20 17:28 98.6 95 24 110/72 100 Mechanical Ventilator 40 08/01/20 15:03 98.6 93 27 110/67 100 Mechanical Ventilator 08/01/20 14:33 105 38 40 08/01/20 13:56 98.6 08/01/20 13:26 98 41 30 08/01/20 13:21 100.6 110 27 109/76 99 Mechanical Ventilator 08/01/20 13:08 115 46 Ambu-Bag 08/01/20 12:53 115 46 106/77 (87) 99 Ambu-Bag l Intake and Output 08/01/20 08/02/20 18:59 06:59 Intake Total 1440 ml 730 ml Output Total 1 ml 1445 ml Balance 1439 ml -715 ml Intake IV Total 1440 ml 730 ml Output Urine Total 1 ml 1445 ml # Bowel Movements 3 General Appearance: WD/WN HEENT: normocephalic, status post trach Respiratory: chest wall non-tender Cardiovascular: normal peripheral pulses, normal rate Abdomen: normal bowel sounds Microbiology Date/Time Source Procedure Growth Status 08/02/20 05:00 Stool Clostridium difficile Toxin Assay - Final Complete 08/01/20 16:06 Nasal Nares - Final Complete 08/01/20 16:06 Nasal Nares - Final Complete 08/01/20 13:10 Nasopharynx SARS-CoV-2 RdRp Gene Assay - Final Complete Laboratory Tests 08/01/20 13:10: White Blood Count 22.2*H, Red Blood Count 3.78L, Hemoglobin 11.5L, Hematocrit 34.1L, Mean Corpuscular Volume 90, Mean Corpuscular Hemoglobin 30.3, Mean C orpuscular Hemoglobin Concent 33.6, Red Cell Distribution Width 16.4H, Platelet Count 183, Mean Platelet Volume 12.3H, Neutrophils (%) (Auto) , Lymphocytes (%) (Auto) , Monocytes (%) (Auto) , Eosinophils (%) (Auto) , Basophils (%) (Auto) , Differential Total Cells Counted 100, Neutrophils % (Manual) 84H, Lymphocytes % (Manual) 8L, Monocytes % (Manual) 3, Eosinophils % (Manual) 0, Basophils % (Manual) 0, Band Neutrophils 5, Platelet Estimate Adequate, Platelet Morphology Normal, Hypochromasia 1+, Anisocytosis 1+, Prothrombin Time 11.8H, Prothromb Time International Ratio 1.1, Activated Partial Thromboplast Time 22L, D-Dimer 4.70H, Urine Color Yellow, Urine Appearance Clear, Urine pH 5, Urine Specific [place] 1.015, Urine Protein 2+H, Urine Glucose (UA) 1+H, Urine Ketones Negative, Urine Blood 1+H, Urine Nitrite Negative, Urine Bilirubin Negative, Urine Urobilinogen Normal, Urine Leukocyte Esterase 1+H, Urine RBC 0-2H, Urine WBC 2-4, Urine Squamous Epithelial Cells Occasional, Urine Bacteria Occasional, Sodium Level 149H, Potassium Level 4.9, Chloride Level 111H, Carbon Dioxide Level 13L, Anion Gap 25H, Blood Urea Nitrogen 346H, Creatinine 4.2H, Estimat Glomerular Filtration Rate 14.3, Glucose Level 202H, Lactic Acid Level 1.40, Calcium Level 8.6, Phosphorus Level 10.0H, Magnesium Level 3.5H, Ferritin 730H, Total Bilirubin 0.8, Aspartate Amino Transf (AST/SGOT) 40H, Alanine Aminotransferase (ALT/SGPT) 261H, Alkaline Phosphatase 235H, Lactate Dehydrogenase 213, Total Creatine Kinase 98, Creatine Kinase MB 2.7, Creatine Kinase MB Relative Index 2.7, Troponin I 0.806H, C-Reactive Protein, Quantitative 0.9, Pro-B-Type Natriuretic Peptide 1395H, Total Protein 7.6, Albumin 2.7L, Globulin 4.9, Albumin/Globulin Ratio 0.6L 08/01/20 13:38: Arterial Blood pH 7.241*L, Arterial Blood Partial Pressure CO2 23.5*L, Arterial Blood Partial Pressure O2 84.0, Arterial Blood HCO3 9.9*L, Arterial Blood Oxygen Saturation 95.5, Arterial Blood Base Excess -15.7*L, Russ Test Positive 08/01/20 23:00: Urine Random Sodium 39, Urine Creatinine 22.9L 08/02/20 03:50: White Blood Count 17.6H, Red Blood Count 3.30L, Hemoglobin 10.0L, Hematocrit 29.4L, Mean Corpuscular Volume 89, Mean Corpuscular Hemoglobin 30.2, Mean Corpuscular Hemoglobin Concent 34.0, Red Cell Distribution Width 15.8H, Platelet Count 127L, Mean Platelet Volume 11.9H, Neutrophils (%) (Auto) , Lymphocytes (%) (Auto) , Monocytes (%) (Auto) , Eosinophils (%) (Auto) , Basophils (%) (Auto) , Differential Total Cells Counted 100, Neutrophils % (Manual) 84H, Lymphocytes % (Manual) 7L, Monocytes % (Manual) 5, Eosinophils % (Manual) 1, Basophils % (Manual) 0, Band Neutrophils 3, Platelet Estimate DecreasedL, Platelet Morphology Normal, Anisocytosis 1+, Sodium Level 154H, Potassium Level 3.5, Chloride Level 116H, Carbon Dioxide Level 11L, Anion Gap 27H, Blood Urea Nitrogen 343H, Creatinine 4.1H, Estimat Glomerular Filtration Rate 14.7, Glucose Level 144H, Lactic Acid Level 0.90, Calcium Level 8.0L, Troponin I 0.551H 08/02/20 05:00: Stool Occult Blood Positive 08/02/20 08:12: Arterial Blood pH 7.241*L, Arterial Blood Partial Pressure CO2 20.9*L, Arterial Blood Partial Pressure O2 193.9H, Arterial Blood HCO3 8.8*L, Arterial Blood Oxygen Saturation 98.8, Arterial Blood Base Excess -16.7*L, Russ Test Positive Current Medications Medications (Trade) Dose Ordered Sig/Maegan Route PRN Reason Start Time Stop Time Status Last Admin Dose Admin Cefepime HCl 1 gm/ Dextrose 55 ml @ 110 mls/hr Q24H IVPB 08/01/20 21:00 08/08/20 20:59 08/01/20 20:09 Chlorhexidine Gluconate (Deisy-Hex 2%) 1 applic BIOTEC TOPIC 08/02/20 21:00 10/31/20 20:59 Dextrose 1,000 ml @ 0 mls/hr Q0M IV 08/02/20 09:15 09/01/20 09:14 Dextrose (Dextrose 50%) 25 ml Q30M PRN IV Hypoglycemia 08/01/20 18:30 10/30/20 18:29 Dextrose (Dextrose 50%) 50 ml Q30M PRN IV Hypoglycemia 08/01/20 18:30 10/30/20 18:29 Heparin Sodium (Porcine) (Heparin 5000 units/ml) 5,000 units EVERY 12 HOURS SUBQ 08/01/20 21:00 09/15/20 20:59 08/02/20 08:32 Insulin Aspart (NovoLOG) BEFORE MEALS AND HS SUBQ 08/01/20 21:00 10/30/20 20:59 08/02/20 05:29 Metoprolol Tartrate (Lopressor) 50 mg Q12HR GT 08/02/20 10:00 10/31/20 09:59 Sodium Chloride 1,000 ml @ 75 mls/hr [id number] IV 08/01/20 19:30 08/31/20 19:29 08/02/20 08:32 Assessment/Plan Assessment/Plan IMPRESSION: 1. Chronic respiratory failure. Chronic tracheostomy 2. Metabolic acidosis. Will begin HCO3 drip 3. Renal failure. 4. Leukocytosis. 5. Sepsis. Source unclear; C dif negative; CXR clear DISCUSSION: Agree with broad spectrum antibiotics. I will continue AC mode. Currently FiO2 40%; PEEP 5 Begin bicarbonate supplementation. Hemodynamically stable I will follow carefully. Jack Nunez M.D. Jack Nunez MD Aug 02, 2020 11:03
[2020-08-02] MEDS ORDERED: Sodium Bicarbonate 50 ML in D5W 1000ml 1,000 ML IV SCH (12:00)
[2020-08-02] MEDS ORDERED: Acetaminophen 500mg (ES) tab ORAL PRN (13:00)
--- NOTE | 2020-08-02 13:02 | Cardiac Electrophysiology PN ---
Subjective Subjective [id number] Objective Last 24 Hour Vital Signs Date Time Temp Pulse Resp B/P (MAP) Pulse Ox O2 Delivery O2 Flow Rate FiO2 08/02/20 11:00 113 25 104/74 (84) 100 08/02/20 10:00 112 33 108/76 (87) 99 08/02/20 09:00 111 27 108/78 (88) 100 08/02/20 08:00 Mechanical Ventilator 08/02/20 08:00 40 08/02/20 08:00 98.3 110 33 112/77 (89) 100 08/02/20 08:00 109 08/02/20 07:13 110 32 40 08/02/20 07:00 105 26 119/82 (94) 100 08/02/20 06:00 104 28 127/80 (96) 100 08/02/20 05:00 106 30 147/86 (106) 100 08/02/20 04:00 102 08/02/20 04:00 40 08/02/20 04:00 Mechanical Ventilator 08/02/20 04:00 98.6 101 30 111/77 (88) 100 08/02/20 03:15 105 27 40 08/02/20 03:00 100 29 114/76 (89) 100 08/02/20 02:00 101 30 119/77 (91) 100 08/02/20 01:00 99 25 137/83 (101) 100 08/02/20 00:06 101 08/02/20 00:00 99.0 99 26 118/78 (91) 100 08/02/20 00:00 40 08/02/20 00:00 Mechanical Ventilator 08/01/20 23:31 97 31 40 08/01/20 23:00 101 28 130/79 (96) 100 08/01/20 22:00 95 27 124/85 (98) 100 08/01/20 21:14 Mechanical Ventilator 08/01/20 21:00 96 26 125/81 (96) 100 08/01/20 20:00 40 08/01/20 20:00 98.2 100 24 126/72 (90) 100 08/01/20 20:00 Mechanical Ventilator 08/01/20 19:55 101 08/01/20 19:46 95 29 40 08/01/20 19:39 99 20 137/84 (101) 100 08/01/20 19:30 98.6 91 18 108/75 100 Mechanical Ventilator 40 08/01/20 19:10 98.6 97 18 104/69 100 Mechanical Ventilator 40 08/01/20 17:28 98.6 95 24 110/72 100 Mechanical Ventilator 40 08/01/20 15:03 98.6 93 27 110/67 100 Mechanical Ventilator 08/01/20 14:33 105 38 40 08/01/20 13:56 98.6 08/01/20 13:26 98 41 30 08/01/20 13:21 100.6 110 27 109/76 99 Mechanical Ventilator 08/01/20 13:08 115 46 Ambu-Bag Intake and Output0 08/01/20 08/02/20 19:00 07:00 Intake Total 1440 ml 805 ml Output Total 1 ml 1520 ml Balance 1439 ml -715 ml Intake IV Total 1440 ml 805 ml Output Urine Total 1 ml 1520 ml # Bowel Movements 3 Laboratory Tests Test 08/01/20 13:10 08/01/20 13:38 08/01/20 23:00 08/02/20 03:50 White Blood Count 22.2 K/UL (4.8-10.8) *H 17.6 K/UL (4.8-10.8) H Red Blood Count 3.78 M/UL (4.70-6.10) L 3.30 M/UL (4.70-6.10) L Hemoglobin 11.5 G/DL (14.2-18.0) L 10.0 G/DL (14.2-18.0) L Hematocrit 34.1 % (42.0-52.0) L 29.4 % (42.0-52.0) L Mean Corpuscular Volume 90 FL (80-99) 89 FL (80-99) Mean Corpuscular Hemoglobin 30.3 PG (27.0-31.0) 30.2 PG (27.0-31.0) Mean Corpuscular Hemoglobin Concent 33.6 G/DL (32.0-36.0) 34.0 G/DL (32.0-36.0) Red Cell Distribution Width 16.4 % (11.6-14.8) H 15.8 % (11.6-14.8) H Platelet Count 183 K/UL (150-450) 127 K/UL (150-450) L Mean Platelet Volume 12.3 FL (6.5-10.1) H 11.9 FL (6.5-10.1) H Neutrophils (%) (Auto) % (45.0-75.0) % (45.0-75.0) Lymphocytes (%) (Auto) % (20.0-45.0) % (20.0-45.0) Monocytes (%) (Auto) % (1.0-10.0) % (1.0-10.0) Eosinophils (%) (Auto) % (0.0-3.0) % (0.0-3.0) Basophils (%) (Auto) % (0.0-2.0) % (0.0-2.0) Differential Total Cells Counted 100 100 Neutrophils % (Manual) 84 % (45-75) H 84 % (45-75) H Lymphocytes % (Manual) 8 % (20-45) L 7 % (20-45) L Monocytes % (Manual) 3 % (1-10) 5 % (1-10) Eosinophils % (Manual) 0 % (0-3) 1 % (0-3) Basophils % (Manual) 0 % (0-2) 0 % (0-2) Band Neutrophils 5 % (0-8) 3 % (0-8) Platelet Estimate Adequate Decreased L Platelet Morphology Normal Normal Hypochromasia 1+ Anisocytosis 1+ 1+ Prothrombin Time 11.8 SEC (9.30-11.50) H Prothromb Time International Ratio 1.1 (0.9-1.1) Activated Partial Thromboplast Time 22 SEC (23-33) L D-Dimer 4.70 mg/L FEU (0.00-0.49) H Urine Color Yellow Urine Appearance Clear Urine pH 5 (4.5-8.0) Urine Specific Kiester 1.015 (1.005-1.035) Urine Protein 2+ (NEGATIVE) H Urine Glucose (UA) 1+ (NEGATIVE) H Urine Ketones Negative (NEGATIVE) Urine Blood 1+ (NEGATIVE) H Urine Nitrite Negative (NEGATIVE) Urine Bilirubin Negative (NEGATIVE) Urine Urobilinogen Normal MG/DL (0.0-1.0) Urine Leukocyte Esterase 1+ (NEGATIVE) H Urine RBC 0-2 /HPF (0 - 0) H Urine WBC 2-4 /HPF (0 - 0) Urine Squamous Epithelial Cells Occasional /LPF Urine Bacteria Occasional /HPF (NONE) Sodium Level 149 MMOL/L (136-145) H 154 MMOL/L (136-145) H Potassium Level 4.9 MMOL/L (3.5-5.1) 3.5 MMOL/L (3.5-5.1) Chloride Level 111 MMOL/L (98-107) H 116 MMOL/L (98-107) H Carbon Dioxide Level 13 MMOL/L (21-32) L 11 MMOL/L (21-32) L Anion Gap 25 mmol/L (5-15) H 27 mmol/L (5-15) H Blood Urea Nitrogen 346 mg/dL (7-18) H 343 mg/dL (7-18) H Creatinine 4.2 MG/DL (0.55-1.30) H 4.1 MG/DL (0.55-1.30) H Estimat Glomerular Filtration Rate 14.3 mL/min (>60) 14.7 mL/min (>60) Glucose Level 202 MG/DL (74-106) H 144 MG/DL (74-106) H Lactic Acid Level 1.40 mmol/L (0.4-2.0) 0.90 mmol/L (0.4-2.0) Calcium Level 8.6 MG/DL (8.5-10.1) 8.0 MG/DL (8.5-10.1) L Phosphorus Level 10.0 MG/DL (2.5-4.9) H Magnesium Level 3.5 MG/DL (1.8-2.4) H Ferritin 730 NG/ML (8-388) H Total Bilirubin 0.8 MG/DL (0.2-1.0) Aspartate Amino Transf (AST/SGOT) 40 U/L (15-37) H Alanine Aminotransferase (ALT/SGPT) 261 U/L (12-78) H Alkaline Phosphatase 235 U/L (46-116) H Lactate Dehydrogenase 213 U/L (81-234) Total Creatine Kinase 98 U/L (26-308) Creatine Kinase MB 2.7 NG/ML (0.0-3.6) Creatine Kinase MB Relative Index 2.7 Troponin I 0.806 ng/mL (0.000-0.056) 0.551 ng/mL (0.000-0.056) C-Reactive Protein, Quantitative 0.9 mg/dL (0.00-0.90) Pro-B-Type Natriuretic Peptide 1395 pg/mL (0-125) H Total Protein 7.6 G/DL (6.4-8.2) Albumin 2.7 G/DL (3.4-5.0) L Globulin 4.9 g/dL Albumin/Globulin Ratio 0.6 (1.0-2.7) L Arterial Blood pH 7.241 (7.350-7.450) Arterial Blood Partial Pressure CO2 23.5 mmHg (35.0-45.0) *L Arterial Blood Partial Pressure O2 84.0 mmHg (75.0-100.0) Arterial Blood HCO3 9.9 mmol/L (22.0-26.0) *L Arterial Blood Oxygen Saturation 95.5 % (95-100) Arterial Blood Base Excess -15.7 (-2-2) *L Rsus Test Positive Urine Random Sodium 39 mmol/L (20-110) Urine Creatinine 22.9 MG/DL (30.0-125.0) L Test 08/02/20 05:00 08/02/20 08:12 Stool Occult Blood Positive (NEGATIVE) Arterial Blood pH 7.241 (7.350-7.450) Arterial Blood Partial Pressure CO2 20.9 mmHg (35.0-45.0) *L Arterial Blood Partial Pressure O2 193.9 mmHg (75.0-100.0) H Arterial Blood HCO3 8.8 mmol/L (22.0-26.0) *L Arterial Blood Oxygen Saturation 98.8 % (95-100) Arterial Blood Base Excess -16.7 (-2-2) *L Russ Test Positive Microbiology Date/Time Source Procedure Growth Status 08/02/20 05:00 Stool Clostridium difficile Toxin Assay - Final Complete 08/01/20 16:06 Nasal Nares - Final Complete 08/01/20 16:06 Nasal Nares - Final Complete 08/01/20 13:10 Nasopharynx SARS-CoV-2 RdRp Gene Assay - Final Complete Gregorio Mari MD Aug 02, 2020 13:02
[2020-08-02] MEDS ORDERED: Acetaminophen 650mg/20.3ml GT PRN (15:45)
--- NOTE | 2020-08-02 16:30 | Consultation ---
DATE OF CONSULTATION: 08/02/2020 CARDIOLOGY CONSULTATION REFERRING PHYSICIAN: Fran Llamas M.D. REASON FOR CONSULTATION: Respiratory failure. The patient also had inferolateral ischemia. HISTORY OF PRESENT ILLNESS: The patient is a 65-year-old gentleman who had nontraumatic intracranial hemorrhage at [facility] on June 05, 2020. That left him in ventilator-dependent respiratory failure, status post tracheostomy as well as status post PEG placement. The patient also has hypertension, diabetes, and was transferred from senior living for hypoxia. The patient hypoxia that improved once the patient was placed on the ventilator. The patient was admitted to intensive care unit. His EKG showed sinus rhythm, LVH, and inferolateral ischemia. REVIEW OF SYSTEMS: Cannot be obtained. PAST MEDICAL HISTORY: As mentioned above. FAMILY HISTORY: Noncontributory. SOCIAL HISTORY: A senior living resident. MEDICATIONS AT PRISON: Lasix 20 mg b.i.d. and metoprolol 50 mg b.i.d. PHYSICAL EXAMINATION: VITAL SIGNS: Blood pressure 104/74, pulse 113, respirations 20, temperature 98.3. HEAD AND NECK: Status post tracheostomy with no JVD. LUNGS: Coarse rhonchi. CARDIOVASCULAR: Regular S1 and S2 with no gallop. ABDOMEN: Status post G-tube. EXTREMITIES: No pitting edema. LABORATORY AND DIAGNOSTIC DATA: Labs show white count of 22.2, hemoglobin of 11.5, hematocrit 34, and platelet count of 183. Sodium 154, potassium 3.5, BUN of 343, creatinine of 4.1. Troponin 0.806 and 0.551. ASSESSMENT AND PLAN: 1. Acute troponin elevation. Levels are coming down at 0.8 to 0.5. The patient also has acute renal failure with BUN of 343, creatinine of 4.1, likely due to as well as patient's sepsis with white count of 22,000. His EKG also shows sinus rhythm with inferolateral ischemia. We will repeat the EKG and decrease the Lopressor to 12.5 mg b.i.d. We will get an echocardiogram to better evaluate for ejection fraction and wall motion abnormality. 2. Shortness of breath with respiratory failure, status post tracheostomy, on the ventilator with 40% FiO2. 3. Dysphagia, status post PEG placement. 4. Acute renal failure with BUN of 343, creatinine of 4.1. The patient was already evaluated by Nephrology. The patient never had dialysis based on records. 5. Diabetes. 6. History of left thalamic hemorrhage. Thank you very much for allowing me to participate in the care of this patient. Please do not hesitate to contact me for any questions regarding my evaluation. Gregorio Mari M.D. DR: DAVIS JOB#: [id number] CC:
--- NOTE | 2020-08-02 17:43 | Infectious Diseases Prog Note ---
Assessment/Plan Assessment/Plan Full consult dictated: A) 1) sepsis, leukocytosis, fevers 2) ? source 3) pmh noted 4) allergies - nkda P) 1) vancomycin, cefepime and flagyl 2) f/u on cultures and labs 3) d/w primary care team 4) thank you Subjective Allergies: Coded Allergies: No Known Allergies (Unverified , 08/01/20) Objective Last 24 Hour Vital Signs Date Time Temp Pulse Resp B/P (MAP) Pulse Ox O2 Delivery O2 Flow Rate FiO2 08/02/20 17:00 117 25 107/80 (89) 100 08/02/20 16:00 117 08/02/20 16:00 117 33 116/72 (87) 100 08/02/20 16:00 Mechanical Ventilator 08/02/20 16:00 40 08/02/20 15:00 119 32 104/69 (81) 100 08/02/20 14:00 115 25 111/84 (93) 100 08/02/20 13:00 115 33 109/73 (85) 100 08/02/20 12:00 114 08/02/20 12:00 40 08/02/20 12:00 98.4 113 29 117/77 (90) 100 08/02/20 12:00 Mechanical Ventilator 08/02/20 11:00 113 25 104/74 (84) 100 08/02/20 10:00 112 33 108/76 (87) 99 08/02/20 09:00 111 27 108/78 (88) 100 08/02/20 08:00 Mechanical Ventilator 08/02/20 08:00 40 08/02/20 08:00 98.3 110 33 112/77 (89) 100 08/02/20 08:00 109 08/02/20 07:13 110 32 40 08/02/20 07:00 105 26 119/82 (94) 100 08/02/20 06:00 104 28 127/80 (96) 100 08/02/20 05:00 106 30 147/86 (106) 100 08/02/20 04:00 102 08/02/20 04:00 40 08/02/20 04:00 Mechanical Ventilator 08/02/20 04:00 98.6 101 30 111/77 (88) 100 08/02/20 03:15 105 27 40 08/02/20 03:00 100 29 114/76 (89) 100 08/02/20 02:00 101 30 119/77 (91) 100 08/02/20 01:00 99 25 137/83 (101) 100 08/02/20 00:06 101 08/02/20 00:00 99.0 99 26 118/78 (91) 100 08/02/20 00:00 40 08/02/20 00:00 Mechanical Ventilator 08/01/20 23:31 97 31 40 08/01/20 23:00 101 28 130/79 (96) 100 08/01/20 22:00 95 27 124/85 (98) 100 08/01/20 21:14 Mechanical Ventilator 08/01/20 21:00 96 26 125/81 (96) 100 08/01/20 20:00 40 08/01/20 20:00 98.2 100 24 126/72 (90) 100 08/01/20 20:00 Mechanical Ventilator 08/01/20 19:55 101 08/01/20 19:46 95 29 40 08/01/20 19:39 99 20 137/84 (101) 100 08/01/20 19:30 98.6 91 18 108/75 100 Mechanical Ventilator 40 08/01/20 19:10 98.6 97 18 104/69 100 Mechanical Ventilator 40 Height (Feet): 5 Height (Inches): 7.00 Weight (Pounds): 175 Microbiology Date/Time Source Procedure Growth Status 08/02/20 05:00 Stool Clostridium difficile Toxin Assay - Final Complete 08/01/20 16:06 Nasal Nares - Final Complete 08/01/20 16:06 Nasal Nares - Final Complete 08/01/20 13:10 Nasopharynx SARS-CoV-2 RdRp Gene Assay - Final Complete Laboratory Tests Test 08/01/20 23:00 08/02/20 03:50 08/02/20 05:00 08/02/20 08:12 Urine Random Sodium 39 mmol/L (20-110) Urine Creatinine 22.9 MG/DL (30.0-125.0) L White Blood Count 17.6 K/UL (4.8-10.8) H Red Blood Count 3.30 M/UL (4.70-6.10) L Hemoglobin 10.0 G/DL (14.2-18.0) L Hematocrit 29.4 % (42.0-52.0) L Mean Corpuscular Volume 89 FL (80-99) Mean Corpuscular Hemoglobin 30.2 PG (27.0-31.0) Mean Corpuscular Hemoglobin Concent 34.0 G/DL (32.0-36.0) Red Cell Distribution Width 15.8 % (11.6-14.8) H Platelet Count 127 K/UL (150-450) L Mean Platelet Volume 11.9 FL (6.5-10.1) H Neutrophils (%) (Auto) % (45.0-75.0) Lymphocytes (%) (Auto) % (20.0-45.0) Monocytes (%) (Auto) % (1.0-10.0) Eosinophils (%) (Auto) % (0.0-3.0) Basophils (%) (Auto) % (0.0-2.0) Differential Total Cells Counted 100 Neutrophils % (Manual) 84 % (45-75) H Lymphocytes % (Manual) 7 % (20-45) L Monocytes % (Manual) 5 % (1-10) Eosinophils % (Manual) 1 % (0-3) Basophils % (Manual) 0 % (0-2) Band Neutrophils 3 % (0-8) Platelet Estimate Decreased L Platelet Morphology Normal Anisocytosis 1+ Sodium Level 154 MMOL/L (136-145) H Potassium Level 3.5 MMOL/L (3.5-5.1) Chloride Level 116 MMOL/L (98-107) H Carbon Dioxide Level 11 MMOL/L (21-32) L Anion Gap 27 mmol/L (5-15) H Blood Urea Nitrogen 343 mg/dL (7-18) H Creatinine 4.1 MG/DL (0.55-1.30) H Estimat Glomerular Filtration Rate 14.7 mL/min (>60) Glucose Level 144 MG/DL (74-106) H Lactic Acid Level 0.90 mmol/L (0.4-2.0) Calcium Level 8.0 MG/DL (8.5-10.1) L Troponin I 0.551 ng/mL (0.000-0.056) Stool Occult Blood Positive (NEGATIVE) Arterial Blood pH 7.241 (7.350-7.450) Arterial Blood Partial Pressure CO2 20.9 mmHg (35.0-45.0) *L Arterial Blood Partial Pressure O2 193.9 mmHg (75.0-100.0) H Arterial Blood HCO3 8.8 mmol/L (22.0-26.0) *L Arterial Blood Oxygen Saturation 98.8 % (95-100) Arterial Blood Base Excess -16.7 (-2-2) *L Russ Test Positive Test 08/02/20 16:14 Troponin I 0.565 ng/mL (0.000-0.056) Current Medications Medications (Trade) Dose Ordered Sig/Maegan Route PRN Reason Start Time Stop Time Status Last Admin Dose Admin Acetaminophen (Tylenol) 650 mg Q4H PRN GT For Pain 08/02/20 15:45 09/01/20 15:44 Acetaminophen (Tylenol) 650 mg Q4H PRN GT Temp >100.5 08/02/20 15:45 09/01/20 15:44 Cefepime HCl 1 gm/ Dextrose 55 ml @ 110 mls/hr Q24H IVPB 08/01/20 21:00 08/08/20 20:59 08/01/20 20:09 Chlorhexidine Gluconate (Deisy-Hex 2%) 1 applic BIOTEC TOPIC 08/02/20 21:00 10/31/20 20:59 Dextrose 1,000 ml @ 0 mls/hr Q0M IV 08/02/20 09:15 09/01/20 09:14 Heparin Sodium (Porcine) (Heparin 5000 units/ml) 5,000 units EVERY 12 HOURS SUBQ 08/02/20 21:00 09/16/20 20:59 Metoprolol Tartrate (Lopressor) 12.5 mg Q12HR GT 08/02/20 21:00 10/31/20 09:59 Pantoprazole (Protonix) 40 mg DAILY IVP 08/03/20 09:00 09/02/20 08:59 Sodium Bicarbonate 50 ml/ Dextrose 1,050 ml @ 50 mls/hr Q21H IV 08/02/20 12:00 09/01/20 11:59 08/02/20 13:04 Calderon Vazquez MD Aug 02, 2020 17:43
--- NOTE | 2020-08-02 17:49 | General Progress Note ---
Subjective Date patient seen: Aug 02, 2020 ROS Limited/Unobtainable: Yes Allergies: Coded Allergies: No Known Allergies (Unverified , 08/01/20) Subjective Patient ABG worse this AM. Severely uremic. Not verbalizing, poor mental status. Objective Last 24 Hour Vital Signs Date Time Temp Pulse Resp B/P (MAP) Pulse Ox O2 Delivery O2 Flow Rate FiO2 08/02/20 17:00 117 25 107/80 (89) 100 08/02/20 16:00 117 08/02/20 16:00 117 33 116/72 (87) 100 08/02/20 16:00 Mechanical Ventilator 08/02/20 16:00 40 08/02/20 15:00 119 32 104/69 (81) 100 08/02/20 14:00 115 25 111/84 (93) 100 08/02/20 13:00 115 33 109/73 (85) 100 08/02/20 12:00 114 08/02/20 12:00 40 08/02/20 12:00 98.4 113 29 117/77 (90) 100 08/02/20 12:00 Mechanical Ventilator 08/02/20 11:00 113 25 104/74 (84) 100 08/02/20 10:00 112 33 108/76 (87) 99 08/02/20 09:00 111 27 108/78 (88) 100 08/02/20 08:00 Mechanical Ventilator 08/02/20 08:00 40 08/02/20 08:00 98.3 110 33 112/77 (89) 100 08/02/20 08:00 109 08/02/20 07:13 110 32 40 08/02/20 07:00 105 26 119/82 (94) 100 08/02/20 06:00 104 28 127/80 (96) 100 08/02/20 05:00 106 30 147/86 (106) 100 08/02/20 04:00 102 08/02/20 04:00 40 08/02/20 04:00 Mechanical Ventilator 08/02/20 04:00 98.6 101 30 111/77 (88) 100 08/02/20 03:15 105 27 40 08/02/20 03:00 100 29 114/76 (89) 100 08/02/20 02:00 101 30 119/77 (91) 100 08/02/20 01:00 99 25 137/83 (101) 100 08/02/20 00:06 101 08/02/20 00:00 99.0 99 26 118/78 (91) 100 08/02/20 00:00 40 08/02/20 00:00 Mechanical Ventilator 08/01/20 23:31 97 31 40 08/01/20 23:00 101 28 130/79 (96) 100 08/01/20 22:00 95 27 124/85 (98) 100 08/01/20 21:14 Mechanical Ventilator 08/01/20 21:00 96 26 125/81 (96) 100 08/01/20 20:00 40 08/01/20 20:00 98.2 100 24 126/72 (90) 100 08/01/20 20:00 Mechanical Ventilator 08/01/20 19:55 101 08/01/20 19:46 95 29 40 08/01/20 19:39 99 20 137/84 (101) 100 08/01/20 19:30 98.6 91 18 108/75 100 Mechanical Ventilator 40 08/01/20 19:10 98.6 97 18 104/69 100 Mechanical Ventilator 40 Intake and Output 08/01/20 08/02/20 19:00 07:00 Intake Total 1440 ml 805 ml Output Total 1 ml 1520 ml Balance 1439 ml -715 ml Intake IV Total 1440 ml 805 ml Output Urine Total 1 ml 1520 ml # Bowel Movements 3 Laboratory Tests 08/01/20 23:00: Urine Random Sodium 39, Urine Creatinine 22.9L 08/02/20 03:50: White Blood Count 17.6H, Red Blood Count 3.30L, Hemoglobin 10.0L, Hematocrit 29.4L, Mean Corpuscular Volume 89, Mean Corpuscular Hemoglobin 30.2, Mean Corpuscular Hemoglobin Concent 34.0, Red Cell Distribution Width 15.8H, Platelet Count 127L, Mean Platelet Volume 11.9H, Neutrophils (%) (Auto) , Lymphocytes (%) (Auto) , Monocytes (%) (Auto) , Eosinophils (%) (Auto) , Basophils (%) (Auto) , Differential Total Cells Counted 100, Neutrophils % (Manual) 84H, Lymphocytes % (Manual) 7L, Monocytes % (Manual) 5, Eosinophils % (Manual) 1, Basophils % (Manual) 0, Band Neutrophils 3, Platelet Estimate DecreasedL, Platelet Morphology Normal, Anisocytosis 1+, Sodium Level 154H, Potassium Level 3.5, Chloride Level 116H, Carbon Dioxide Level 11L, Anion Gap 27H, Blood Urea Nitrogen 343H, Creatinine 4.1H, Estimat Glomerular Filtration Rate 14.7, Glucose Level 144H, Lactic Acid Level 0.90, Calcium Level 8.0L, Troponin I 0.551H 08/02/20 05:00: Stool Occult Blood Positive 08/02/20 08:12: Arterial Blood pH 7.241*L, Arterial Blood Partial Pressure CO2 20.9*L, Arterial Blood Partial Pressure O2 193.9H, Arterial Blood HCO3 8.8*L, Arterial Blood Oxygen Saturation 98.8, Arterial Blood Base Excess -16.7*L, Russ Test Positive 08/02/20 16:14: Troponin I 0.565H Height (Feet): 5 Height (Inches): 7.00 Weight (Pounds): 175 Objective General Appearance: lethargic, does not open eyes to voice Lines, tubes and drains: trach HEENT: normocephalic, atraumatic, mucous membranes moist Neck: normal alignment Respiratory/Chest: rhonchi - bilaterally Cardiovascular/Chest: normal peripheral pulses, regular rhythm Abdomen: soft, no mass, feeding tube Extremities: no edema, no cyanosis Skin Exam: normal pigmentation, warm/dry Neurologic: unresponsiveness Assessment/Plan Assessment/Plan: #Sepsis - high WBC count, lactate elevated. Unclear source. #Metabolic acidosis - likely from severe uremia #NSTEMI - may be demand ischemia in sepsis #Acute kidney injury - may be sepsis related. - s/p CTX, zosyn, IVF in ED - avoid nephrotoxic drugs - Patient not a good candidate for HD given very poor overall status and extremely limited potential for recovery - cefepime - low threshold to broaden antibiotics - f/u cultures - IVF - trend troponin - ID consult Dr. Stone - Nephro consult Dr. Sherman - Cardiology consult Dr. Mari #Acute on chronic respiratory failure #s/p tracheostomy #PEG status - Ventilator dependent - In ICU for ventilator - check ABG - CXR clear, low suspicion for pneumonia - Covid negative - pulmonary consult Dr. Nunez - tube feed - nutrition consult #Hx of thalamic infarct #Uremic encephalopathy? - nonverbal, lethargic currently - neurology consult Dr. Hale #Diabetes - ISS Fluids: IVF Diet: tube feed DVT ppx: heparin Code: harness cleaner of my involvement, the patient's condition was critical with high potential for and/or physiologic deterioration secondary to sepsis and acute hypoxic respiratory failure as delineated in the note above. On the above date of service, I spent a total of 43 minutes in the ICU evaluating, managing, and providing critical care services to this patient, including time spent documenting these activities, counseling patient/family, and coordinating care. Critical care services performed include: -Telemetry review -Hemodynamic measurement interpretation -Laboratory data review and interpretation -Vent setting reviewed, management -Discussion of patient's care with medical team, and consultants -Decision to obtain further radiologic evaluation, after consideration of the risk/benefit ratio -Review of most recent microbiology results assessment and modification of antimicrobial coverage -Discussion of patient's CODE STATUS and further advancement towards the ultimate goals of care. Plan outlined above discussed with patient/family, KNOWLEDGE ARCHITECT, ICU team, and involved physician/consultants. Davidson Guzmán M.D. Aug 02, 2020 17:49
--- NOTE | 2020-08-02 18:10 | Consultation ---
History of Present Illness General Date patient seen: Aug 02, 2020 Reason for Hospitalization: Dyspnea/Respdistress Present Illness HPI This is a 65 yo male with PMHx of chronic respiratory failure s/p tracheostomy, left thalamic hemorrhage, diabetes, HTN, bedbound presents from SNF with hypoxia. According to ER physician, patient required bagging on arrival due to hypoxia that improved once patient placed on ventilator. Patient was given IVF bolus, antibiotics. History is limited secondary patient's clinical condition, hx of stroke. noted to have abnormal labs, eval for trach, decubitus ulcers. surgery called to evaluate and assist with care. Allergies: Coded Allergies: No Known Allergies (Unverified , 08/01/20) COVID-19 Screening Contact w/high risk pt: No Experienced COVID-19 symptoms?: No Medication History Scheduled Docusate Sodium* (Docusate Sodium*), 100 MG GT TWICE A DAY, (Reported) Furosemide* (Lasix*), 20 MG GT Q12HR, (Reported) Glycopyrrolate (Glycopyrrolate), 1 MG GT Q8HR, (Reported) Ipratropium/Albuterol Sulfate (Combivent Respimat Inhal [place]), 4 GM IH EVERY 2 HOURS, (Reported) Metoclopramide Hcl* (Reglan*), 10 MG ORAL Q6HR, (Reported) Metoprolol Tartrate* (Metoprolol Tartrate*), 50 MG ORAL EVERY 12 HOURS, (Reported) Scheduled PRN Acetaminophen 160MG/5ML* (Acetaminophen*), 20.3 ML GT Q6HR PRN for pain/fever, (Reported) Ondansetron* (Zofran*), 4 MG ORAL Q8HR PRN for Nausea & Vomiting, (Reported) Patient History Limited by: medical condition History Provided By: Medical Record, PMD Healthcare decision maker Resuscitation status Advanced Directive on File Past Medical/Surgical History Past Medical/Surgical History: (1) Respiratory distress (2) Renal failure (3) Metabolic acidosis (4) NSTEMI (non-ST elevated myocardial infarction) (5) Sepsis Review of Systems Review of Symptoms General ROS: no weight loss or fever Psychological ROS: no depression or mood changes, no memory loss Ophthalmic ROS: no visual changes or eye irritation ENT ROS: no nasal congestion, hearing loss, dizziness Allergy and Immunology ROS: no allergic symptoms or urticaria Hematological and Lymphatic ROS: no swollen glands, unusual bleeding or bruising Endocrine ROS: no polyuria, polydipsia, weight changes, temperature intolerance Respiratory ROS: no cough, shortness of breath, or wheezing Cardiovascular ROS: no chest pain or dyspnea on exertion Gastrointestinal ROS: denies abdominal pain, bright red blood in stool. Musculoskeletal ROS: no myalgias or arthralgias Neurological ROS: no TIA or stroke symptoms Dermatological ROS: no new or changing skin lesions, rashes or pruritis limited given condition Physical Exam Physical Exam General appearance: mild distress, appears stated age Head: Normocephalic, without obvious abnormality, atraumatic Eyes: conjunctivae/corneas clear. PERRL, EOM's intact. Fundi benign Throat: Lips, mucosa, and tongue normal. Teeth and gums normal Neck: supple, symmetrical, trachea midline, no adenopathy, thyroid: not enlarged, symmetric, no tenderness/mass/nodules, no carotid bruit and no JVD Lungs: clear to auscultation bilaterally Heart: regular rate and rhythm, S1, S2 normal, no murmur, click, rub or gallop Abdomen: soft, non-tender. Bowel sounds normal. No masses, no organomegaly Extremities: extremities normal, atraumatic, no cyanosis or edema Pulses: 2+ and symmetric Skin: Skin see below Neurologic: Grossly normal Last 24 Hour Vital Signs Date Time Temp Pulse Resp B/P (MAP) Pulse Ox O2 Delivery O2 Flow Rate FiO2 08/02/20 17:00 117 25 107/80 (89) 100 08/02/20 16:00 117 08/02/20 16:00 117 33 116/72 (87) 100 08/02/20 16:00 Mechanical Ventilator 08/02/20 16:00 40 08/02/20 15:00 119 32 104/69 (81) 100 08/02/20 14:00 115 25 111/84 (93) 100 08/02/20 13:00 115 33 109/73 (85) 100 08/02/20 12:00 114 08/02/20 12:00 40 08/02/20 12:00 98.4 113 29 117/77 (90) 100 08/02/20 12:00 Mechanical Ventilator 08/02/20 11:00 113 25 104/74 (84) 100 08/02/20 10:00 112 33 108/76 (87) 99 08/02/20 09:00 111 27 108/78 (88) 100 08/02/20 08:00 Mechanical Ventilator 08/02/20 08:00 40 08/02/20 08:00 98.3 110 33 112/77 (89) 100 08/02/20 08:00 109 08/02/20 07:13 110 32 40 08/02/20 07:00 105 26 119/82 (94) 100 08/02/20 06:00 104 28 127/80 (96) 100 08/02/20 05:00 106 30 147/86 (106) 100 08/02/20 04:00 102 08/02/20 04:00 40 08/02/20 04:00 Mechanical Ventilator 08/02/20 04:00 98.6 101 30 111/77 (88) 100 08/02/20 03:15 105 27 40 08/02/20 03:00 100 29 114/76 (89) 100 08/02/20 02:00 101 30 119/77 (91) 100 08/02/20 01:00 99 25 137/83 (101) 100 08/02/20 00:06 101 08/02/20 00:00 99.0 99 26 118/78 (91) 100 08/02/20 00:00 40 08/02/20 00:00 Mechanical Ventilator 08/01/20 23:31 97 31 40 08/01/20 23:00 101 28 130/79 (96) 100 08/01/20 22:00 95 27 124/85 (98) 100 08/01/20 21:14 Mechanical Ventilator 08/01/20 21:00 96 26 125/81 (96) 100 08/01/20 20:00 40 08/01/20 20:00 98.2 100 24 126/72 (90) 100 08/01/20 20:00 Mechanical Ventilator 08/01/20 19:55 101 08/01/20 19:46 95 29 40 08/01/20 19:39 99 20 137/84 (101) 100 08/01/20 19:30 98.6 91 18 108/75 100 Mechanical Ventilator 40 08/01/20 19:10 98.6 97 18 104/69 100 Mechanical Ventilator 40 Intake and Output 08/01/20 08/02/20 19:00 07:00 Intake Total 1440 ml 805 ml Output Total 1 ml 1520 ml Balance 1439 ml -715 ml Intake IV Total 1440 ml 805 ml Output Urine Total 1 ml 1520 ml # Bowel Movements 3 Laboratory Tests Test 08/01/20 23:00 08/02/20 03:50 08/02/20 05:00 08/02/20 08:12 Urine Random Sodium 39 mmol/L (20-110) Urine Creatinine 22.9 MG/DL (30.0-125.0) L White Blood Count 17.6 K/UL (4.8-10.8) H Red Blood Count 3.30 M/UL (4.70-6.10) L Hemoglobin 10.0 G/DL (14.2-18.0) L Hematocrit 29.4 % (42.0-52.0) L Mean Corpuscular Volume 89 FL (80-99) Mean Corpuscular Hemoglobin 30.2 PG (27.0-31.0) Mean Corpuscular Hemoglobin Concent 34.0 G/DL (32.0-36.0) Red Cell Distribution Width 15.8 % (11.6-14.8) H Platelet Count 127 K/UL (150-450) L Mean Platelet Volume 11.9 FL (6.5-10.1) H Neutrophils (%) (Auto) % (45.0-75.0) Lymphocytes (%) (Auto) % (20.0-45.0) Monocytes (%) (Auto) % (1.0-10.0) Eosinophils (%) (Auto) % (0.0-3.0) Basophils (%) (Auto) % (0.0-2.0) Differential Total Cells Counted 100 Neutrophils % (Manual) 84 % (45-75) H Lymphocytes % (Manual) 7 % (20-45) L Monocytes % (Manual) 5 % (1-10) Eosinophils % (Manual) 1 % (0-3) Basophils % (Manual) 0 % (0-2) Band Neutrophils 3 % (0-8) Platelet Estimate Decreased L Platelet Morphology Normal Anisocytosis 1+ Sodium Level 154 MMOL/L (136-145) H Potassium Level 3.5 MMOL/L (3.5-5.1) Chloride Level 116 MMOL/L (98-107) H Carbon Dioxide Level 11 MMOL/L (21-32) L Anion Gap 27 mmol/L (5-15) H Blood Urea Nitrogen 343 mg/dL (7-18) H Creatinine 4.1 MG/DL (0.55-1.30) H Estimat Glomerular Filtration Rate 14.7 mL/min (>60) Glucose Level 144 MG/DL (74-106) H Lactic Acid Level 0.90 mmol/L (0.4-2.0) Calcium Level 8.0 MG/DL (8.5-10.1) L Troponin I 0.551 ng/mL (0.000-0.056) Stool Occult Blood Positive (NEGATIVE) Arterial Blood pH 7.241 (7.350-7.450) Arterial Blood Partial Pressure CO2 20.9 mmHg (35.0-45.0) *L Arterial Blood Partial Pressure O2 193.9 mmHg (75.0-100.0) H Arterial Blood HCO3 8.8 mmol/L (22.0-26.0) *L Arterial Blood Oxygen Saturation 98.8 % (95-100) Arterial Blood Base Excess -16.7 (-2-2) *L Russ Test Positive Test 08/02/20 16:14 Troponin I 0.565 ng/mL (0.000-0.056) Microbiology Date/Time Source Procedure Growth Status 08/02/20 05:00 Stool Clostridium difficile Toxin Assay - Final Complete Height (Feet): 5 Height (Inches): 7.00 Weight (Pounds): 175 Medications Current Medications Medications (Trade) Dose Ordered Sig/Maegan Route PRN Reason Start Time Stop Time Status Last Admin Dose Admin Acetaminophen (Tylenol) 650 mg Q4H PRN GT For Pain 08/02/20 15:45 09/01/20 15:44 Acetaminophen (Tylenol) 650 mg Q4H PRN GT Temp >100.5 08/02/20 15:45 09/01/20 15:44 Cefepime HCl 1 gm/ Dextrose 55 ml @ 110 mls/hr Q24H IVPB 08/01/20 21:00 08/08/20 20:59 08/01/20 20:09 Chlorhexidine Gluconate (Deisy-Hex 2%) 1 applic BIOTEC TOPIC 08/02/20 21:00 10/31/20 20:59 Dextrose 1,000 ml @ 0 mls/hr Q0M IV 08/02/20 09:15 09/01/20 09:14 Heparin Sodium (Porcine) (Heparin 5000 units/ml) 5,000 units EVERY 12 HOURS SUBQ 08/02/20 21:00 09/16/20 20:59 Linezolid (Zyvox) 600 mg EVERY 12 HOURS ORAL 08/02/20 21:00 08/07/20 20:59 Metoprolol Tartrate (Lopressor) 12.5 mg Q12HR GT 08/02/20 21:00 10/31/20 09:59 Metronidazole (Flagyl) 500 mg EVERY 8 HOURS ORAL 08/02/20 22:00 08/09/20 21:59 Pantoprazole (Protonix) 40 mg DAILY IVP 08/03/20 09:00 09/02/20 08:59 Sodium Bicarbonate 50 ml/ Dextrose 1,050 ml @ 50 mls/hr Q21H IV 08/02/20 12:00 09/01/20 11:59 08/02/20 13:04 Assessment/Plan Problem List: (1) Respiratory distress ICD Codes: R06.03 - Acute respiratory distress SNOMED: 448882445 (2) Renal failure Assessment & Plan: plan HD line soon temp hd consent from daughter ICD Codes: N19 - Unspecified kidney failure SNOMED: 31197789 (3) Metabolic acidosis ICD Codes: E87.2 - Acidosis SNOMED: 22179393 (4) NSTEMI (non-ST elevated myocardial infarction) ICD Codes: I21.4 - Non-ST elevation (NSTEMI) myocardial infarction SNOMED: 77244441 (5) Sepsis Assessment & Plan: okay for tf iv fluids vent via trach weaning vent g tube okay decubitus eval done and local care provided labs noted acidosis plan HD cont abx as per ID will follow with recs thank you DAILY ESTIMATED NEEDS: Needs based on Critical care, wound, AUNDREA/ 62.7kg 22-28 kcals/kg 7171-9687 total kcals 0.8-1.25 (increase w/ renal fxn improvement) g protein/kg 50-78 g total protein 20-25 mL/kg 9470-6438 total fluid mLs NUTRITION DIAGNOSIS: Swallowing difficulty R/T respiratory failure as evidenced by trach/vent dep, PEG dep. CURRENT TF: NPO ENTERAL NUTRITION RECOMMENDATIONS: Nepro @ 35ml/hr x 24 hrs to provide 840ml, 1512kcal, 68g prot, 611ml free water * As medically appropriate, initiate Nepro, rec goal rate of 35ml/hr x 24 hrs * HOB over 30 degrees/ water flush per MD ADDITIONAL RECOMMENDATIONS: * Per SNF: HT=68" and UB=916gud -> daily calibrated bedscale wt * Monitor renal fxn and lytes, ability to increase est prot needs * NISS w/ TF -> h/o DM * Probiotics for diarrhea * Wound healing: Add Nephrovite x 1, ZnSO4 220mg QD x 10 days Kenji BID w/ TF ICD Codes: A41.9 - Sepsis, unspecified organism SNOMED: 52736120 Rohit Brand Aug 02, 2020 18:10
--- NOTE | 2020-08-02 18:58 | General Progress Note ---
Advance Care Planning Advance Care Planning Advance Care Planning [facility] An independent Hospitalist group, where every patient is our [facility] Internal Medicine Hospitalist Advanced Care Planning Note Please contact us at Date of Discussion: A phone discussion with the patient's daughter Desiree Ferguson regarding the patient's advanced care planning took place during this hospitalization on the above date. The discussion included the explanation and discussion of advance directives and associated forms/documents, as well as the patient's current code status. We also discussed at length the patient's medical conditions (both acute and chronic), general prognosis, treatment options, and goals of care. The following summarizes the discussion: Advance Care Planning/Goals of Care: - Will attempt to fill out an AD and/or POLST with the patient prior to discharge, if not already completed - Continue current evaluation and management of any acute and chronic medical issues - Will continue to support the patient/family - Will continue to discuss both short- and long-term goals of care - Patient had intermittently received dialysis previously and daughter would like patient to receive dialysis during this hospitalization if necessary DPOA-HC/Surrogate Decision Maker: Yolanda Ramírez Code Status: Full Code Advanced Care Planning Forms/Documents Completed: Deferred until later encounter/visit A total of 22 minutes was spent on this discussion, including counseling, answering questions, and completing, if any, pertinent advanced care planning forms/documents. Time of note may not reflect time of encounter. Davidson Guzmán M.D. Aug 02, 2020 18:58
--- NOTE | 2020-08-02 20:31 | Consultation ---
DATE OF CONSULTATION: 08/02/2020 INFECTIOUS DISEASES CONSULTATION ATTENDING PHYSICIAN: Fran Llamas M.D. REFERRING PHYSICIAN: Davidson Guzmán M.D. REASON FOR CONSULTATION: Sepsis, leukocytosis, fevers. CHIEF COMPLAINT: The patient's chief complaint coming to the hospital is sepsis. HISTORY OF PRESENT ILLNESS: This is a 65-year-old male who has a history of trach, vent. The patient currently is in the ICU at [facility]. The patient presented with sepsis to [facility] with fevers and leukocytosis. Infectious Diseases consultation is requested. The patient could not add to his history. The patient was placed on Zyvox, cefepime, and Flagyl. He is in acute renal failure, trying to avoid nephrotoxic drugs. Case was discussed with primary care team. Cultures are pending at this time. UA is benign. Chest x-ray is negative. COVID testing is negative. The patient did have diarrhea and C. diff testing was also negative. REVIEW OF SYSTEMS: CONSTITUTIONAL: The patient currently has trach, vent. He has a Dumont. He is in the ICU. HEAD AND NECK: He has trach. CARDIAC: No pressors. GASTROINTESTINAL: He did have diarrhea, but no nausea or vomiting. GENITOURINARY: Has a Dumont. PULMONARY: On a vent. PAST MEDICAL HISTORY: The patient has a past medical history of trach, vent, respiratory failure, left thalamic hemorrhage or CVA or stroke, diabetes, hypertension, GERD, vent dependency. ALLERGIES: No known drug allergies. No antibiotic allergies. SOCIAL HISTORY: Negative for smoking, alcohol, or drug abuse. FAMILY HISTORY: Noncontributory. MEDICATIONS: Upon reviewing the MAR, the patient is on the following medications: Pantoprazole, heparin, metoprolol, Zyvox, cefepime, Flagyl, IV fluids. Outside medications noted and reconciled. PHYSICAL EXAMINATION: VITAL SIGNS: Pulse rate 117, respiratory rate 25, blood pressure 107/80, FiO2 40%, saturation 100%, temperature 98.4. T-max 100.6. GENERAL: Lethargic, weak. HEAD AND NECK: Trach intact. Normocephalic. HEART: Regular. No gallop or murmur. ABDOMEN: Soft. Positive bowel sounds. Could not assess tenderness. LUNGS: Clear bilaterally. No rhonchi or rales. SKIN: No rash. MUSCULOSKELETAL: No effusions. Legs are without cellulitis. PERIPHERAL VASCULAR: No cyanosis. GENITOURINARY: Dumont. Urine slightly cloudy. LINE SITES: Without phlebitis. NEUROLOGIC: Generalized weakness. Alert, responsive. LABORATORY DATA: Creatinine 4.1. White count 17.6, hemoglobin 10.0. White count was high at 22.2 on admission. Creatinine 4.1. Cultures pending. UA, 2-4 white cells. Chest x-ray had no acute process. Cultures pending. ASSESSMENT AND PLAN: 1. The patient has sepsis, fevers, leukocytosis. Avoid nephrotoxic drugs. Continue Zyvox, cefepime, and Flagyl for sepsis, elevated white count, and fevers. Check cultures, labs. Follow up chest x-ray. 2. Trach, vent. 3. Dysphagia, on G-tube. 4. 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 5. Diabetes. 6. Hypertension. 7. Blood sugar and blood pressure treatment per primary care team. 8. Acute renal failure. 9. Anemia. 10. Respiratory failure. 11. GERD. 12. Vent dependency. 13. No allergies. 14. Social history is negative. 15. Family history noncontributory. 16. MAR was noted. 17. Case was discussed with RN. Calderon Vazquez M.D. DR: NEREIDA JOB#: [id number] CC:
[2020-08-02] MEDS: Pantoprazole Inj IVP SCH (20:36)
[2020-08-02] MEDS: Sodium Bicarbonate 100 ML in D5W 1000ml 1,000 ML IV SCH (20:36)
[2020-08-02] MEDS: Cefepime HCl 1 GM in D5W 55 ML IVPB SCH (20:36)
[2020-08-02] MEDS: Metoprolol Tartrate 12.5mg TAB GT SCH (20:37)
[2020-08-02] MEDS: Dyna-Hex 2% Top Sol 2oz TOPIC SCH (20:37)
[2020-08-02] MEDS: metroNIDAZOLE 500mg tab ORAL SCH (22:00)
[2020-08-02] MEDS ORDERED: Sodium Bicarbonate 50ml Carp IV SCH (22:30)
[2020-08-02 23:57] LABS: CALCIUM 8.1 MG/DL (8.5-10.1); CREATININE 4.6 MG/DL (0.55-1.30); POTASSIUM 3.4 MMOL/L (3.5-5.1)
[2020-08-03] VITALS (24 sets, daily range): BP systolic 91–141; BP diastolic 57–85
[2020-08-03] MEDS: Acetaminophen 650mg/20.3ml GT PRN (02:13)
[2020-08-03] MEDS: metroNIDAZOLE 500mg tab ORAL SCH ×3 (05:49→20:56)
[2020-08-03] MEDS: Sodium Bicarbonate 100 ML in D5W 1000ml 1,000 ML IV SCH (05:50)
[2020-08-03 06:03] LABS: CREATININE 4.3 MG/DL (0.55-1.30)
[2020-08-03 06:28] LABS: POTASSIUM 2.6 MMOL/L (3.5-5.1)
[2020-08-03 06:50] LABS: CALCIUM 7.7 MG/DL (8.5-10.1)
--- NOTE | 2020-08-03 06:51 | Consultation ---
History of Present Illness General Chief Complaint: Dyspnea/Respdistress Reason for Consultation: AUNDREA Present Illness Allergies: Coded Allergies: No Known Allergies (Unverified , 08/01/20) Medication History Scheduled Docusate Sodium* (Docusate Sodium*), 100 MG GT TWICE A DAY, (Reported) Furosemide* (Lasix*), 20 MG GT Q12HR, (Reported) Glycopyrrolate (Glycopyrrolate), 1 MG GT Q8HR, (Reported) Ipratropium/Albuterol Sulfate (Combivent Respimat Inhal [place]), 4 GM IH EVERY 2 HOURS, (Reported) Metoclopramide Hcl* (Reglan*), 10 MG ORAL Q6HR, (Reported) Metoprolol Tartrate* (Metoprolol Tartrate*), 50 MG ORAL EVERY 12 HOURS, (Reported) Scheduled PRN Acetaminophen 160MG/5ML* (Acetaminophen*), 20.3 ML GT Q6HR PRN for pain/fever, (Reported) Ondansetron* (Zofran*), 4 MG ORAL Q8HR PRN for Nausea & Vomiting, (Reported) Patient History Healthcare decision maker Resuscitation status Advanced Directive on File Physical Exam Last 24 Hour Vital Signs Date Time Temp Pulse Resp B/P (MAP) Pulse Ox O2 Delivery O2 Flow Rate FiO2 08/03/20 06:00 99 27 108/67 (81) 100 08/03/20 05:00 97 25 113/72 (86) 100 08/03/20 04:00 99.4 94 23 126/76 (93) 100 08/03/20 04:00 Mechanical Ventilator 08/03/20 04:00 40 08/03/20 04:00 95 08/03/20 03:00 97 19 141/85 (103) 100 08/03/20 02:51 97 33 40 08/03/20 02:00 99.7 100 26 115/67 (83) 100 08/03/20 01:00 98 23 106/70 (82) 100 08/03/20 00:00 40 08/03/20 00:00 97 08/03/20 00:00 100.3 100 27 105/64 (78) 100 08/03/20 00:00 Mechanical Ventilator 08/02/20 23:00 97 29 100/66 (77) 100 08/02/20 22:50 95 28 40 08/02/20 22:00 97 31 104/71 (82) 100 08/02/20 21:00 105 27 107/65 (79) 100 08/02/20 20:37 110 112/66 08/02/20 20:00 Mechanical Ventilator 08/02/20 20:00 40 08/02/20 20:00 99.5 111 29 112/66 (81) 100 08/02/20 20:00 110 08/02/20 19:00 112 28 111/66 (81) 100 08/02/20 18:59 112 28 40 08/02/20 18:00 115 22 105/71 (82) 100 08/02/20 17:00 117 25 107/80 (89) 100 08/02/20 16:00 117 08/02/20 16:00 98.6 117 33 116/72 (87) 100 08/02/20 16:00 Mechanical Ventilator 08/02/20 16:00 40 08/02/20 15:28 117 34 40 08/02/20 15:00 119 32 104/69 (81) 100 08/02/20 14:00 115 25 111/84 (93) 100 08/02/20 13:00 115 33 109/73 (85) 100 08/02/20 12:00 114 08/02/20 12:00 40 08/02/20 12:00 98.4 113 29 117/77 (90) 100 08/02/20 12:00 Mechanical Ventilator 08/02/20 11:28 115 33 40 08/02/20 11:00 113 25 104/74 (84) 100 08/02/20 10:00 112 33 108/76 (87) 99 08/02/20 09:00 111 27 108/78 (88) 100 08/02/20 08:00 Mechanical Ventilator 08/02/20 08:00 40 08/02/20 08:00 98.3 110 33 112/77 (89) 100 08/02/20 08:00 109 08/02/20 07:13 110 32 40 08/02/20 07:00 105 26 119/82 (94) 100 Intake and Output 08/02/20 08/03/20 19:00 07:00 Intake Total 667.5 ml 1700 ml Output Total 625 ml 380 ml Balance 42.5 ml 1320 ml Intake Free Water 60 ml 200 ml IV Total 562.5 ml 1165 ml Tube Feeding 45 ml 335 ml Output Urine Total 625 ml 380 ml # Bowel Movements 50 Laboratory Tests Test 08/02/20 08:12 08/02/20 16:14 08/02/20 23:15 08/03/20 04:00 Arterial Blood pH 7.241 (7.350-7.450) Arterial Blood Partial Pressure CO2 20.9 mmHg (35.0-45.0) *L Arterial Blood Partial Pressure O2 193.9 mmHg (75.0-100.0) H Arterial Blood HCO3 8.8 mmol/L (22.0-26.0) *L Arterial Blood Oxygen Saturation 98.8 % (95-100) Arterial Blood Base Excess -16.7 (-2-2) *L Russ Test Positive Troponin I 0.565 ng/mL (0.000-0.056) 0.498 ng/mL (0.000-0.056) Sodium Level 151 MMOL/L (136-145) H 151 MMOL/L (136-145) H Potassium Level 3.4 MMOL/L (3.5-5.1) L 2.6 MMOL/L (3.5-5.1) *L Chloride Level 113 MMOL/L (98-107) H 110 MMOL/L (98-107) H Carbon Dioxide Level 12 MMOL/L (21-32) L 15 MMOL/L (21-32) L Anion Gap 26 mmol/L (5-15) H 26 mmol/L (5-15) H Blood Urea Nitrogen 371 mg/dL (7-18) H 348 mg/dL (7-18) H Creatinine 4.6 MG/DL (0.55-1.30) H 4.3 MG/DL (0.55-1.30) H Estimat Glomerular Filtration Rate 12.8 mL/min (>60) 13.9 mL/min (>60) Glucose Level 245 MG/DL (74-106) #H 276 MG/DL (74-106) H Calcium Level 8.1 MG/DL (8.5-10.1) L 7.7 MG/DL (8.5-10.1) L White Blood Count Pending Red Blood Count Pending Hemoglobin Pending Hematocrit Pending Mean Corpuscular Volume Pending Mean Corpuscular Hemoglobin Pending Mean Corpuscular Hemoglobin Concent Pending Red Cell Distribution Width Pending Platelet Count Pending Mean Platelet Volume Pending Neutrophils (%) (Auto) Pending Lymphocytes (%) (Auto) Pending Monocytes (%) (Auto) Pending Eosinophils (%) (Auto) Pending Basophils (%) (Auto) Pending Calcium (Send out) Pending Phosphorus Level Pending Magnesium Level Pending Vitamin D 25-Hydroxy Pending 25-Hydroxy Vitamin D2 Pending 25-Hydroxy Vitamin D3 Pending Parathyroid Hormone (Intact) Pending Height (Feet): 5 Height (Inches): 7.00 Weight (Pounds): 175 Medications Current Medications Medications (Trade) Dose Ordered Sig/Maegan Route PRN Reason Start Time Stop Time Status Last Admin Dose Admin Acetaminophen (Tylenol) 650 mg Q4H PRN GT For Pain 08/02/20 15:45 09/01/20 15:44 08/03/20 02:13 Acetaminophen (Tylenol) 650 mg Q4H PRN GT Temp >100.5 08/02/20 15:45 09/01/20 15:44 Cefepime HCl 1 gm/ Dextrose 55 ml @ 110 mls/hr Q24H IVPB 08/01/20 21:00 08/08/20 20:59 08/02/20 20:36 Chlorhexidine Gluconate (Deisy-Hex 2%) 1 applic BIOTEC TOPIC 08/02/20 21:00 10/31/20 20:59 08/02/20 20:37 Dextrose 1,000 ml @ 0 mls/hr Q0M IV 08/02/20 09:15 09/01/20 09:14 Heparin Sodium (Porcine) (Heparin 5000 units/ml) 5,000 units EVERY 12 HOURS SUBQ 08/02/20 21:00 09/16/20 20:59 08/02/20 20:38 Linezolid (Zyvox) 600 mg EVERY 12 HOURS ORAL 08/02/20 21:00 08/07/20 20:59 08/02/20 20:37 Metoprolol Tartrate (Lopressor) 12.5 mg Q12HR GT 08/02/20 21:00 10/31/20 09:59 08/02/20 20:37 Metronidazole (Flagyl) 500 mg EVERY 8 HOURS ORAL 08/02/20 22:00 08/09/20 21:59 08/03/20 05:49 Pantoprazole (Protonix) 40 mg DAILY IVP 08/03/20 09:00 09/02/20 08:59 08/02/20 20:36 Potassium Chloride 100 ml @ 100 mls/hr NOW ONCE IVPB 08/03/20 07:30 08/03/20 08:29 UNV Potassium Chloride 100 ml @ 100 mls/hr NOW ONCE IVPB 08/03/20 08:30 08/03/20 09:29 UNV Potassium Chloride 100 ml @ 100 mls/hr NOW ONCE IVPB 08/03/20 09:30 08/03/20 10:29 UNV Potassium Chloride 100 ml @ 100 mls/hr NOW ONCE IVPB 08/03/20 10:30 08/03/20 11:29 UNV Sodium Bicarbonate 100 ml/Dextrose 1,100 ml @ 50 mls/hr Q22H IV 08/02/20 20:00 09/01/20 19:59 08/03/20 05:50 Assessment/Plan Status Narrative Hematology Consultation REDarrell MD: Muriel and Dr. Henderson RFC: Anemia, Thrombocytopenia, ddimer high ID Dannie Dias is a 65 yo male with PMH of chronic respiratory failure s/p tracheostomy, left thalamic hemorrhage, diabetes, HTN, bedbound presents from SNF with hypoxia. According to ER physician, patient required bagging on arrival due to hypoxia that improved once patient placed on ventilator. Patient was given IVF bolus, antibiotics. History is limited secondary patient's clinical condition, hx of stroke. From chart review: Past medical history: Hypertension, diabetes, GERD, chronic vent dependence, recent left thalamic hemorrhage Past surgical history: Tracheostomy Smoking: Unable to obtain Alcohol use: Unable to obtain Drug use: Unable to obtain Review of systems: ROS is limited secondary to patient's clinical condition Allergies: Coded Allergies: No Known Allergies (Unverified , 08/01/20) COVID-19 Screening Contact w/high risk pt: No Experienced COVID-19 symptoms?: No Medication History Scheduled Docusate Sodium* (Docusate Sodium*), 100 MG GT TWICE A DAY, (Reported) Furosemide* (Lasix*), 20 MG GT Q12HR, (Reported) Glycopyrrolate (Glycopyrrolate), 1 MG GT Q8HR, (Reported) Ipratropium/Albuterol Sulfate (Combivent Respimat Inhal [place]), 4 GM IH EVERY 2 HOURS, (Reported) Metoclopramide Hcl* (Reglan*), 10 MG ORAL Q6HR, (Reported) Metoprolol Tartrate* (Metoprolol Tartrate*), 50 MG ORAL EVERY 12 HOURS, (Reported) Scheduled PRN Acetaminophen 160MG/5ML* (Acetaminophen*), 20.3 ML GT Q6HR PRN for pain/fever, (Reported) Ondansetron* (Zofran*), 4 MG ORAL Q8HR PRN for Nausea & Vomiting, (Reported) Patient History Limited by: medical condition History Provided By: Medical Record Healthcare decision maker Resuscitation status Advanced Directive on File Review of Systems negative Physical Exam General Appearance: lethargic Lines, tubes and drains: trach+++ vent++++ HEENT: normocephalic, atraumatic, mucous membranes moist Neck: normal alignment Respiratory/Chest: rhonchi - bilaterally Cardiovascular/Chest: normal peripheral pulses, regular rhythm Abdomen: soft, no mass, feeding tube Extremities: no edema, no cyanosis Skin Exam: normal pigmentation, warm/dry Neurologic: unresponsiveness Labs: reviewed Meds: noted ASSESSMENT AND PLAN: # Leukocytosis is due to sepsis, fevers, leukocytosis. Avoid nephrotoxic drugs. --> ABX Continue Zyvox, cefepime, and Flagyl for sepsis, elevated white count, and fevers. --> iamging has been reviewed --> as per pulm and id recs --> wbc 22-->18 # Anemia due to hemodilution --> if lower than 10, get workup --> transfuse prn --> hgb 11-->10 # Thrombocytopenia due to underlying infection --> medications have been reviewed --> 186-->127 --> is on hep, monitor # Trach, vent. # Dysphagia, on G-tube. 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 # Diabetes. # Hypertension. # Acute renal failure. # GERD. # Dvt ppx heparin sq Appreciate consultation and dw Karthik Agrawal MD Aug 03, 2020 06:51
[2020-08-03 06:58] LABS: HEMOGLOBIN 8.3 G/DL (14.2-18.0); MEAN CORPUSCULAR VOLUME 93 FL (80-99); PLATELET COUNT 103 K/UL (150-450); RED BLOOD COUNT 2.69 M/UL (4.70-6.10); RED CELL DISTRIBUTION WIDTH 16.7 % (11.6-14.8); WHITE BLOOD COUNT 14.1 K/UL (4.8-10.8)
[2020-08-03 07:08] LABS: PHOSPHORUS 9.5 MG/DL (2.5-4.9)
--- NOTE | 2020-08-03 08:35 | Nephrology Progress Note ---
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 per daughter #Uremia #Anemia #Pneumonia #sepsis - per discussion with daughter - HD is in line with goals of care - plan for HD line placement and HD today - for now continue bicarb drip - monitor ABG - antibiotics per ID - avoid nephrotoxins - monitor UOP - monitor electrolytes time spent 65 min Subjective ROS Limited/Unobtainable: Yes Objective Objective Last 24 Hour Vital Signs Date Time Temp Pulse Resp B/P (MAP) Pulse Ox O2 Delivery O2 Flow Rate FiO2 08/03/20 07:47 Mechanical Ventilator 08/03/20 07:46 40 08/03/20 07:00 101 30 91/57 (68) 100 08/03/20 06:00 99 27 108/67 (81) 100 08/03/20 05:00 97 25 113/72 (86) 100 08/03/20 04:00 99.4 94 23 126/76 (93) 100 08/03/20 04:00 Mechanical Ventilator 08/03/20 04:00 40 08/03/20 04:00 95 08/03/20 03:00 97 19 141/85 (103) 100 08/03/20 02:51 97 33 40 08/03/20 02:00 99.7 100 26 115/67 (83) 100 08/03/20 01:00 98 23 106/70 (82) 100 08/03/20 00:00 40 08/03/20 00:00 97 08/03/20 00:00 100.3 100 27 105/64 (78) 100 08/03/20 00:00 Mechanical Ventilator 08/02/20 23:00 97 29 100/66 (77) 100 08/02/20 22:50 95 28 40 08/02/20 22:00 97 31 104/71 (82) 100 08/02/20 21:00 105 27 107/65 (79) 100 08/02/20 20:37 110 112/66 08/02/20 20:00 Mechanical Ventilator 08/02/20 20:00 40 08/02/20 20:00 99.5 111 29 112/66 (81) 100 08/02/20 20:00 110 08/02/20 19:00 112 28 111/66 (81) 100 08/02/20 18:59 112 28 40 08/02/20 18:00 115 22 105/71 (82) 100 08/02/20 17:00 117 25 107/80 (89) 100 08/02/20 16:00 117 08/02/20 16:00 98.6 117 33 116/72 (87) 100 08/02/20 16:00 Mechanical Ventilator 08/02/20 16:00 40 08/02/20 15:28 117 34 40 08/02/20 15:00 119 32 104/69 (81) 100 08/02/20 14:00 115 25 111/84 (93) 100 08/02/20 13:00 115 33 109/73 (85) 100 08/02/20 12:00 114 08/02/20 12:00 40 08/02/20 12:00 98.4 113 29 117/77 (90) 100 08/02/20 12:00 Mechanical Ventilator 08/02/20 11:28 115 33 40 08/02/20 11:00 113 25 104/74 (84) 100 08/02/20 10:00 112 33 108/76 (87) 99 08/02/20 09:00 111 27 108/78 (88) 100 Intake and Output 08/02/20 08/03/20 19:00 07:00 Intake Total 667.5 ml 1790 ml Output Total 625 ml 480 ml Balance 42.5 ml 1310 ml Intake Free Water 60 ml 200 ml IV Total 562.5 ml 1215 ml Tube Feeding 45 ml 375 ml Output Urine Total 625 ml 480 ml # Bowel Movements 50 Laboratory Tests 08/02/20 16:14: Troponin I 0.565H 08/02/20 23:15: Sodium Level 151H, Potassium Level 3.4L, Chloride Level 113H, Carbon Dioxide Level 12L, Anion Gap 26H, Blood Urea Nitrogen 371H, Creatinine 4.6H, Estimat Glomerular Filtration Rate 12.8, Glucose Level 245#H, Calcium Level 8.1L 08/03/20 04:00: Troponin I 0.498H, Sodium Level 151H, Potassium Level 2.6*L, Chloride Level 110H , Carbon Dioxide Level 15L, Anion Gap 26H, Blood Urea Nitrogen 348H, Creatinine 4.3H, Estimat Glomerular Filtration Rate 13.9, Glucose Level 276H, Calcium Level 7.7L, White Blood Count 14.1H, Red Blood Count 2.69L, Hemoglobin 8.3L, Hematocrit 25.0L, Mean Corpuscular Volume 93, Mean Corpuscular Hemoglobin 30.9, Mean Corpuscular Hemoglobin Concent 33.2, Red Cell Distribution Width 16.7H, Platelet Count 103L, Mean Platelet Volume 12.0H, Neutrophils (%) (Auto) , Lymphocytes (%) (Auto) , Monocytes (%) (Auto) , Eosinophils (%) (Auto) , Basoph ils (%) (Auto) , Differential Total Cells Counted 100, Neutrophils % (Manual) 85H, Lymphocytes % (Manual) 9L, Monocytes % (Manual) 5, Eosinophils % (Manual) 1, Basophils % (Manual) 0, Band Neutrophils 0, Platelet Estimate DecreasedL, Platelet Morphology Normal, Hypochromasia 2+, Anisocytosis 1+, Calcium (Send out) [Pending], Phosphorus Level 9.5H, Magnesium Level 2.8H, Vitamin D 25- Hydroxy [Pending], 25-Hydroxy Vitamin D2 [Pending], 25-Hydroxy Vitamin D3 [Pending], Parathyroid Hormone (Intact) [Pending], Hepatitis B Surface Antigen [Pending] Height (Feet): 5 Height (Inches): 7.00 Weight (Pounds): 175 Gladys Sherman M.D. Aug 03, 2020 08:35
[2020-08-03] MEDS: Heparin 5000 units/ml inj SUBQ SCH ×2 (09:00→20:55)
[2020-08-03] MEDS: Metoprolol Tartrate 12.5mg TAB GT SCH ×2 (09:00→20:55)
[2020-08-03] MEDS ORDERED: Mannitol 20% IV 500 ML IV SCH (10:00)
--- NOTE | 2020-08-03 10:13 | Diagnostic Imaging Report ---
Indication: Shortness of breath Technique: One view of the chest Comparison: 08/01/2020 Findings: Lungs and pleural spaces are clear. Heart size is normal. Tracheostomy again demonstrated. Findings are unchanged Impression: No acute process
--- NOTE | 2020-08-03 10:47 | Diagnostic Imaging Report ---
Indication: Reason For Exam: ABD PAIN Technique: Grayscale and duplex images of the bilateral lower extremity veins Comparison: None Findings: Bilaterally, grayscale and duplex images demonstrate no evidence of intraluminal thrombus. Normal phasic Doppler waveforms, demonstrating normal augmentation response and no evidence of valvular insufficiency. Greater saphenous vein(s) and tibial veins are patent. Normal compressibility. Impression: Negative for evidence of lower extremity deep venous thrombosis bilaterally
[2020-08-03] MEDS ORDERED: Lidocaine 1% Plain 30 ml INJ SCH (11:30)
[2020-08-03] MEDS ORDERED: Heparin1,000 units/500ml Premix(Conc:2 units/ml) IV SCH (11:30)
--- NOTE | 2020-08-03 12:24 | Operative Note - PDOC ---
Operative Note Operative Note Date of Operation/Procedure: Aug 03, 2020 Pre-op Diagnosis: renal insufficiency requiring HD Procedure: right femoral temporary hemodialysis catheter insertion Post-op Diagnosis: same as pre-op Surgeon: rohit brand md Anesthesia: local Specimen: none Complications: none Condition: stable Fluids: see Estimated Blood Loss: minimal Drains: none Implant(s) used?: No Indications for Procedure 65M trach currently in ICU on support with worsening renal insufficiency and acidosis. HD indicated and recommended. needs access for HD. consent obtained from daughter using contract coordinator. Description of Procedure Patient made comfortable at bedside in supine position. right groin prepped and draped in standard surgical fashion. anatomic landmarks identified. right femoral vein cannulated and good venous blood flow noted. guidewire placed and needle removed. small skin incision made. dilators used. 13f 3 lumen temp HD 30cm cath placed over wire without complication. wire removed and discarded. line sutured in place. all ports flushed and aspirated well. dressings applied. okay for use HD amaris Rohit Brand Aug 03, 2020 12:24
--- NOTE | 2020-08-03 12:26 | Surgery Progress Note ---
Surgery Progress Note Subjective Procedure Performed right femoral temporary hemodialysis catheter insertion Additional Comments line today Objective Last 24 Hour Vital Signs Date Time Temp Pulse Resp B/P (MAP) Pulse Ox O2 Delivery O2 Flow Rate FiO2 08/03/20 11:00 107 34 126/67 (86) 100 08/03/20 10:00 102 25 120/66 (84) 99 08/03/20 09:00 101 29 95/60 (72) 99 08/03/20 09:00 101 95/60 08/03/20 08:00 98.7 100 30 100/62 (75) 100 08/03/20 08:00 102 08/03/20 07:47 Mechanical Ventilator 08/03/20 07:46 40 08/03/20 07:00 101 30 91/57 (68) 100 08/03/20 06:00 99 27 108/67 (81) 100 08/03/20 05:00 97 25 113/72 (86) 100 08/03/20 04:00 99.4 94 23 126/76 (93) 100 08/03/20 04:00 Mechanical Ventilator 08/03/20 04:00 40 08/03/20 04:00 95 08/03/20 03:00 97 19 141/85 (103) 100 08/03/20 02:51 97 33 40 08/03/20 02:00 99.7 100 26 115/67 (83) 100 08/03/20 01:00 98 23 106/70 (82) 100 08/03/20 00:00 40 08/03/20 00:00 97 08/03/20 00:00 100.3 100 27 105/64 (78) 100 08/03/20 00:00 Mechanical Ventilator 08/02/20 23:00 97 29 100/66 (77) 100 08/02/20 22:50 95 28 40 08/02/20 22:00 97 31 104/71 (82) 100 08/02/20 21:00 105 27 107/65 (79) 100 08/02/20 20:37 110 112/66 08/02/20 20:00 Mechanical Ventilator 08/02/20 20:00 40 08/02/20 20:00 99.5 111 29 112/66 (81) 100 08/02/20 20:00 110 08/02/20 19:00 112 28 111/66 (81) 100 08/02/20 18:59 112 28 40 08/02/20 18:00 115 22 105/71 (82) 100 08/02/20 17:00 117 25 107/80 (89) 100 08/02/20 16:00 117 08/02/20 16:00 98.6 117 33 116/72 (87) 100 08/02/20 16:00 Mechanical Ventilator 08/02/20 16:00 40 08/02/20 15:28 117 34 40 08/02/20 15:00 119 32 104/69 (81) 100 08/02/20 14:00 115 25 111/84 (93) 100 08/02/20 13:00 115 33 109/73 (85) 100 I&O Intake and Output 08/02/20 08/03/20 19:00 07:00 Intake Total 667.5 ml 1790 ml Output Total 625 ml 480 ml Balance 42.5 ml 1310 ml Intake Free Water 60 ml 200 ml IV Total 562.5 ml 1215 ml Tube Feeding 45 ml 375 ml Output Urine Total 625 ml 480 ml # Bowel Movements 50 Laboratory Tests Test 08/02/20 16:14 08/02/20 23:15 08/03/20 04:00 08/03/20 08:24 Troponin I 0.565 ng/mL (0.000-0.056) 0.498 ng/mL (0.000-0.056) Sodium Level 151 MMOL/L (136-145) H 151 MMOL/L (136-145) H Potassium Level 3.4 MMOL/L (3.5-5.1) L 2.6 MMOL/L (3.5-5.1) *L Chloride Level 113 MMOL/L (98-107) H 110 MMOL/L (98-107) H Carbon Dioxide Level 12 MMOL/L (21-32) L 15 MMOL/L (21-32) L Anion Gap 26 mmol/L (5-15) H 26 mmol/L (5-15) H Blood Urea Nitrogen 371 mg/dL (7-18) H 348 mg/dL (7-18) H Creatinine 4.6 MG/DL (0.55-1.30) H 4.3 MG/DL (0.55-1.30) H Estimat Glomerular Filtration Rate 12.8 mL/min (>60) 13.9 mL/min (>60) Glucose Level 245 MG/DL (74-106) #H 276 MG/DL (74-106) H Calcium Level 8.1 MG/DL (8.5-10.1) L 7.7 MG/DL (8.5-10.1) L White Blood Count 14.1 K/UL (4.8-10.8) H Red Blood Count 2.69 M/UL (4.70-6.10) L Hemoglobin 8.3 G/DL (14.2-18.0) L Hematocrit 25.0 % (42.0-52.0) L Mean Corpuscular Volume 93 FL (80-99) Mean Corpuscular Hemoglobin 30.9 PG (27.0-31.0) Mean Corpuscular Hemoglobin Concent 33.2 G/DL (32.0-36.0) Red Cell Distribution Width 16.7 % (11.6-14.8) H Platelet Count 103 K/UL (150-450) L Mean Platelet Volume 12.0 FL (6.5-10.1) H Neutrophils (%) (Auto) % (45.0-75.0) Lymphocytes (%) (Auto) % (20.0-45.0) Monocytes (%) (Auto) % (1.0-10.0) Eosinophils (%) (Auto) % (0.0-3.0) Basophils (%) (Auto) % (0.0-2.0) Differential Total Cells Counted 100 Neutrophils % (Manual) 85 % (45-75) H Lymphocytes % (Manual) 9 % (20-45) L Monocytes % (Manual) 5 % (1-10) Eosinophils % (Manual) 1 % (0-3) Basophils % (Manual) 0 % (0-2) Band Neutrophils 0 % (0-8) Platelet Estimate Decreased L Platelet Morphology Normal Hypochromasia 2+ Anisocytosis 1+ Calcium (Send out) Pending Phosphorus Level 9.5 MG/DL (2.5-4.9) H Magnesium Level 2.8 MG/DL (1.8-2.4) H Vitamin D 25-Hydroxy Pending 25-Hydroxy Vitamin D2 Pending 25-Hydroxy Vitamin D3 Pending Parathyroid Hormone (Intact) Pending Hepatitis B Surface Antigen Pending Arterial Blood pH 7.395 (7.350-7.450) Arterial Blood Partial Pressure CO2 23.3 mmHg (35.0-45.0) *L Arterial Blood Partial Pressure O2 186.5 mmHg (75.0-100.0) H Arterial Blood HCO3 13.9 mmol/L (22.0-26.0) *L Arterial Blood Oxygen Saturation 99.0 % (95-100) Arterial Blood Base Excess -9.7 (-2-2) *L Russ Test Positive Plan Problems: (1) Respiratory distress (2) Renal failure Assessment & Plan: plan HD line soon temp hd consent from daughter (3) Metabolic acidosis (4) NSTEMI (non-ST elevated myocardial infarction) (5) Sepsis Assessment & Plan: okay for tf iv fluids vent via trach weaning vent g tube okay decubitus eval done and local care provided labs noted acidosis plan HD cont abx as per ID will follow with recs thank you DAILY ESTIMATED NEEDS: Needs based on Critical care, wound, AUNDREA/ 62.7kg 22-28 kcals/kg 8863-6960 total kcals 0.8-1.25 (increase w/ renal fxn improvement) g protein/kg 50-78 g total protein 20-25 mL/kg 4491-7965 total fluid mLs NUTRITION DIAGNOSIS: Swallowing difficulty R/T respiratory failure as evidenced by trach/vent dep, PEG dep. CURRENT TF: NPO ENTERAL NUTRITION RECOMMENDATIONS: Nepro @ 35ml/hr x 24 hrs to provide 840ml, 1512kcal, 68g prot, 611ml free water * As medically appropriate, initiate Nepro, rec goal rate of 35ml/hr x 24 hrs * HOB over 30 degrees/ water flush per MD ADDITIONAL RECOMMENDATIONS: * Per SNF: HT=68" and LR=247xek -> daily calibrated bedscale wt * Monitor renal fxn and lytes, ability to increase est prot needs * NISS w/ TF -> h/o DM * Probiotics for diarrhea * Wound healing: Add Nephrovite x 1, ZnSO4 220mg QD x 10 days Kenji BID w/ TF Rohit Brand Aug 03, 2020 12:26
--- NOTE | 2020-08-03 13:23 | Cardiac Electrophysiology PN ---
Assessment/Plan Assessment/Plan 1. Troponin elevation. Levels are coming down at 0.8 to 0.5. The patient also has acute renal failure with BUN of 343, creatinine of 4.1, likely due to renal failure as well as patient's sepsis with white count of 22,000. His EKG also shows sinus rhythm with inferolateral ischemia. On Lopressor 12.5 bid. 2. Shortness of breath with respiratory failure, status post tracheostomy, on the ventilator with 30% FiO2. 3. Dysphagia, status post PEG placement. 4. Acute renal failure with BUN of 343, creatinine of 4.1. The patient was already evaluated by Nephrology. The patient never had dialysis based on records. Getting Nicholas catheter and then HD 5. Diabetes. 6. History of left thalamic hemorrhage. Subjective Subjective Getting Nicholas catheter placement by Dr Brand on 30% Fio2 via trach Objective Last 24 Hour Vital Signs Date Time Temp Pulse Resp B/P (MAP) Pulse Ox O2 Delivery O2 Flow Rate FiO2 08/03/20 12:00 104 08/03/20 11:00 107 34 126/67 (86) 100 08/03/20 10:00 102 25 120/66 (84) 99 08/03/20 09:00 101 29 95/60 (72) 99 08/03/20 09:00 101 95/60 08/03/20 08:00 98.7 100 30 100/62 (75) 100 08/03/20 08:00 102 08/03/20 07:47 Mechanical Ventilator 08/03/20 07:46 40 08/03/20 07:00 101 30 91/57 (68) 100 08/03/20 06:00 99 27 108/67 (81) 100 08/03/20 05:00 97 25 113/72 (86) 100 08/03/20 04:00 99.4 94 23 126/76 (93) 100 08/03/20 04:00 Mechanical Ventilator 08/03/20 04:00 40 08/03/20 04:00 95 08/03/20 03:00 97 19 141/85 (103) 100 08/03/20 02:51 97 33 40 08/03/20 02:00 99.7 100 26 115/67 (83) 100 08/03/20 01:00 98 23 106/70 (82) 100 12/24/20 00:00 40 08/03/20 00:00 97 08/03/20 00:00 100.3 100 27 105/64 (78) 100 08/03/20 00:00 Mechanical Ventilator 08/02/20 23:00 97 29 100/66 (77) 100 08/02/20 22:50 95 28 40 08/02/20 22:00 97 31 104/71 (82) 100 08/02/20 21:00 105 27 107/65 (79) 100 08/02/20 20:37 110 112/66 08/02/20 20:00 Mechanical Ventilator 08/02/20 20:00 40 08/02/20 20:00 99.5 111 29 112/66 (81) 100 08/02/20 20:00 110 08/02/20 19:00 112 28 111/66 (81) 100 08/02/20 18:59 112 28 40 08/02/20 18:00 115 22 105/71 (82) 100 08/02/20 17:00 117 25 107/80 (89) 100 08/02/20 16:00 117 08/02/20 16:00 98.6 117 33 116/72 (87) 100 08/02/20 16:00 Mechanical Ventilator 08/02/20 16:00 40 08/02/20 15:28 117 34 40 08/02/20 15:00 119 32 104/69 (81) 100 08/02/20 14:00 115 25 111/84 (93) 100 Intake and Output 0 08/02/20 08/03/20 19:00 07:00 Intake Total 667.5 ml 1790 ml Output Total 625 ml 480 ml Balance 42.5 ml 1310 ml Intake Free Water 60 ml 200 ml IV Total 562.5 ml 1215 ml Tube Feeding 45 ml 375 ml Output Urine Total 625 ml 480 ml # Bowel Movements 50 Laboratory Tests Test 08/02/20 16:14 08/02/20 23:15 08/03/20 04:00 08/03/20 08:24 Troponin I 0.565 ng/mL (0.000-0.056) 0.498 ng/mL (0.000-0.056) Sodium Level 151 MMOL/L (136-145) H 151 MMOL/L (136-145) H Potassium Level 3.4 MMOL/L (3.5-5.1) L 2.6 MMOL/L (3.5-5.1) *L Chloride Level 113 MMOL/L (98-107) H 110 MMOL/L (98-107) H Carbon Dioxide Level 12 MMOL/L (21-32) L 15 MMOL/L (21-32) L Anion Gap 26 mmol/L (5-15) H 26 mmol/L (5-15) H Blood Urea Nitrogen 371 mg/dL (7-18) H 348 mg/dL (7-18) H Creatinine 4.6 MG/DL (0.55-1.30) H 4.3 MG/DL (0.55-1.30) H Estimat Glomerular Filtration Rate 12.8 mL/min (>60) 13.9 mL/min (>60) Glucose Level 245 MG/DL (74-106) #H 276 MG/DL (74-106) H Calcium Level 8.1 MG/DL (8.5-10.1) L 7.7 MG/DL (8.5-10.1) L White Blood Count 14.1 K/UL (4.8-10.8) H Red Blood Count 2.69 M/UL (4.70-6.10) L Hemoglobin 8.3 G/DL (14.2-18.0) L Hematocrit 25.0 % (42.0-52.0) L Mean Corpuscular Volume 93 FL (80-99) Mean Corpuscular Hemoglobin 30.9 PG (27.0-31.0) Mean Corpuscular Hemoglobin Concent 33.2 G/DL (32.0-36.0) Red Cell Distribution Width 16.7 % (11.6-14.8) H Platelet Count 103 K/UL (150-450) L Mean Platelet Volume 12.0 FL (6.5-10.1) H Neutrophils (%) (Auto) % (45.0-75.0) Lymphocytes (%) (Auto) % (20.0-45.0) Monocytes (%) (Auto) % (1.0-10.0) Eosinophils (%) (Auto) % (0.0-3.0) Basophils (%) (Auto) % (0.0-2.0) Differential Total Cells Counted 100 Neutrophils % (Manual) 85 % (45-75) H Lymphocytes % (Manual) 9 % (20-45) L Monocytes % (Manual) 5 % (1-10) Eosinophils % (Manual) 1 % (0-3) Basophils % (Manual) 0 % (0-2) Band Neutrophils 0 % (0-8) Platelet Estimate Decreased L Platelet Morphology Normal Hypochromasia 2+ Anisocytosis 1+ Calcium (Send out) Pending Phosphorus Level 9.5 MG/DL (2.5-4.9) H Magnesium Level 2.8 MG/DL (1.8-2.4) H Vitamin D 25-Hydroxy Pending 25-Hydroxy Vitamin D2 Pending 25-Hydroxy Vitamin D3 Pending Parathyroid Hormone (Intact) Pending Hepatitis B Surface Antigen Pending Arterial Blood pH 7.395 (7.350-7.450) Arterial Blood Partial Pressure CO2 23.3 mmHg (35.0-45.0) *L Arterial Blood Partial Pressure O2 186.5 mmHg (75.0-100.0) H Arterial Blood HCO3 13.9 mmol/L (22.0-26.0) *L Arterial Blood Oxygen Saturation 99.0 % (95-100) Arterial Blood Base Excess -9.7 (-2-2) *L Russ Test Positive Microbiology Date/Time Source Procedure Growth Status 08/02/20 05:00 Stool Clostridium difficile Toxin Assay - Final Complete 08/01/20 16:06 Nasal Nares - Final Complete 08/01/20 16:06 Nasal Nares - Final Complete 08/01/20 13:10 Nasopharynx SARS-CoV-2 RdRp Gene Assay - Final Complete 08/01/20 13:10 Blood Blood Culture - Preliminary NO GROWTH AFTER 24 HOURS Resulted 08/01/20 12:50 Blood Blood Culture - Preliminary NO GROWTH AFTER 24 HOURS Resulted Objective HEAD AND NECK: Status post tracheostomy with no JVD. LUNGS: Coarse rhonchi. CARDIOVASCULAR: Regular S1 and S2 with no gallop. ABDOMEN: Status post G-tube. EXTREMITIES: No pitting edema. Gregorio Mari MD Aug 03, 2020 13:23
--- NOTE | 2020-08-03 14:10 | Pulmonology Progress Note ---
Subjective ROS Limited/Unobtainable: Yes Interval Events: No new events Constitutional: Reports: no symptoms HEENT: Repors: no symptoms Respiratory: Reports: no symptoms Cardiovascular: Reports: no symptoms Gastrointestinal/Abdominal: Reports: no symptoms Allergies: Coded Allergies: No Known Allergies (Unverified , 08/01/20) Objective Last 24 Hour Vital Signs Date Time Temp Pulse Resp B/P (MAP) Pulse Ox O2 Delivery O2 Flow Rate FiO2 08/03/20 12:00 104 08/03/20 11:00 107 34 126/67 (86) 100 08/03/20 10:00 102 25 120/66 (84) 99 08/03/20 09:00 101 29 95/60 (72) 99 08/03/20 09:00 101 95/60 08/03/20 08:00 98.7 100 30 100/62 (75) 100 08/03/20 08:00 102 08/03/20 07:47 Mechanical Ventilator 08/03/20 07:46 40 08/03/20 07:00 101 30 91/57 (68) 100 08/03/20 06:00 99 27 108/67 (81) 100 08/03/20 05:00 97 25 113/72 (86) 100 08/03/20 04:00 99.4 94 23 126/76 (93) 100 08/03/20 04:00 Mechanical Ventilator 08/03/20 04:00 40 08/03/20 04:00 95 08/03/20 03:00 97 19 141/85 (103) 100 08/03/20 02:51 97 33 40 08/03/20 02:00 99.7 100 26 115/67 (83) 100 08/03/20 01:00 98 23 106/70 (82) 100 08/03/20 00:00 40 08/03/20 00:00 97 08/03/20 00:00 100.3 100 27 105/64 (78) 100 08/03/20 00:00 Mechanical Ventilator 08/02/20 23:00 97 29 100/66 (77) 100 08/02/20 22:50 95 28 40 08/02/20 22:00 97 31 104/71 (82) 100 08/02/20 21:00 105 27 107/65 (79) 100 08/02/20 20:37 110 112/66 08/02/20 20:00 Mechanical Ventilator 08/02/20 20:00 40 08/02/20 20:00 99.5 111 29 112/66 (81) 100 08/02/20 20:00 110 08/02/20 19:00 112 28 111/66 (81) 100 08/02/20 18:59 112 28 40 08/02/20 18:00 115 22 105/71 (82) 100 08/02/20 17:00 117 25 107/80 (89) 100 08/02/20 16:00 117 08/02/20 16:00 98.6 117 33 116/72 (87) 100 08/02/20 16:00 Mechanical Ventilator 08/02/20 16:00 40 08/02/20 15:28 117 34 40 08/02/20 15:00 119 32 104/69 (81) 100 Intake and Output 08/02/20 08/03/20 19:00 07:00 Intake Total 667.5 ml 1790 ml Output Total 625 ml 480 ml Balance 42.5 ml 1310 ml Intake Free Water 60 ml 200 ml IV Total 562.5 ml 1215 ml Tube Feeding 45 ml 375 ml Output Urine Total 625 ml 480 ml # Bowel Movements 50 General Appearance: WD/WN HEENT: normocephalic, status post trach Respiratory: chest wall non-tender Cardiovascular: normal peripheral pulses, normal rate Abdomen: normal bowel sounds Microbiology Date/Time Source Procedure Growth Status 08/02/20 05:00 Stool Clostridium difficile Toxin Assay - Final Complete 08/01/20 16:06 Nasal Nares - Final Complete 08/01/20 16:06 Nasal Nares - Final Complete 08/01/20 13:10 Nasopharynx SARS-CoV-2 RdRp Gene Assay - Final Complete 08/01/20 13:10 Blood Blood Culture - Preliminary NO GROWTH AFTER 24 HOURS Resulted 08/01/20 12:50 Blood Blood Culture - Preliminary NO GROWTH AFTER 24 HOURS Resulted Laboratory Tests 08/02/20 16:14: Troponin I 0.565H 08/02/20 23:15: Sodium Level 151H, Potassium Level 3.4L, Chloride Level 113H, Carbon Dioxide Level 12L, Anion Gap 26H, Blood Urea Nitrogen 371H, Creatinine 4.6H, Estimat Glomerular Filtration Rate 12.8, Glucose Level 245#H, Calcium Level 8.1L 08/03/20 04:00: Troponin I 0.498H, Sodium Level 151H, Potassium Level 2.6*L, Chloride Level 110H , Carbon Dioxide Level 15L, Anion Gap 26H, Blood Urea Nitrogen 348H, Creatinine 4.3H, Estimat Glomerular Filtration Rate 13.9, Glucose Level 276H, Calcium Level 7.7L, White Blood Count 14.1H, Red Blood Count 2.69L, Hemoglobin 8.3L, Hematocrit 25.0L, Mean Corpuscular Volume 93, Mean Corpuscular Hemoglobin 30.9, Mean Corpuscular Hemoglobin Concent 33.2, Red Cell Distribution Width 16.7H, Platelet Count 103L, Mean Platelet Volume 12.0H, Neutrophils (%) (Auto) , Lymphocytes (%) (Auto) , Monocytes (%) (Auto) , Eosinophils (%) (Auto) , Basophils (%) (Auto) , Differential Total Cells Counted 100, Neutrophils % (Manual) 85H, Lymphocytes % (Manual) 9L, Monocytes % (Manual) 5, Eosinophils % (Manual) 1, Basophils % (Manual) 0, Band Neutrophils 0, Platelet Estimate DecreasedL, Platelet Morphology Normal, Hypochromasia 2+, Anisocytosis 1+, Calcium (Send out) [Pending], Phosphorus Level 9.5H, Magnesium Level 2.8H, Vitamin D 25-Hydroxy [Pending], 25-Hydroxy Vitamin D2 [Pending], 25-Hydroxy Vitamin D3 [Pending], Parathyroid Hormone (Intact) [Pending], Hepatitis B Surface Antigen [Pending] 08/03/20 08:24: Arterial Blood pH 7.395, Arterial Blood Partial Pressure CO2 23.3*L, Arterial Blood Partial Pressure O2 186.5H, Arterial Blood HCO3 13.9*L, Arterial Blood Oxygen Saturation 99.0, Arterial Blood Base Excess -9.7*L, Russ Test Positive Current Medications Medications (Trade) Dose Ordered Sig/Maegan Route PRN Reason Start Time Stop Time Status Last Admin Dose Admin Acetaminophen (Tylenol) 650 mg Q4H PRN GT For Pain 08/02/20 15:45 09/01/20 15:44 08/03/20 02:13 Acetaminophen (Tylenol) 650 mg Q4H PRN GT Temp >100.5 08/02/20 15:45 09/01/20 15:44 Cefepime HCl 1 gm/ Dextrose 55 ml @ 110 mls/hr Q24H IVPB 08/01/20 21:00 08/08/20 20:59 08/02/20 20:36 Chlorhexidine Gluconate (Deisy-Hex 2%) 1 applic BIOTEC TOPIC 08/02/20 21:00 10/31/20 20:59 08/02/20 20:37 Dextrose 1,000 ml @ 0 mls/hr Q0M IV 08/02/20 09:15 09/01/20 09:14 Heparin Sodium (Porcine) (Heparin 5000 units/ml) 5,000 units EVERY 12 HOURS SUBQ 08/02/20 21:00 09/16/20 20:59 08/02/20 20:38 Heparin Sodium/ Sodium Chloride (Heparin 1000 units/500ml Premix) 1,000 unit ONCE IV 08/03/20 11:30 08/03/20 23:59 Lidocaine HCl (Xylocaine 1% 30ml) 30 ml ONCE INJ 08/03/20 11:30 08/03/20 23:59 Linezolid (Zyvox) 600 mg EVERY 12 HOURS ORAL 08/02/20 21:00 08/07/20 20:59 08/03/20 09:11 Mannitol 500 ml @ 100 mls/hr Q5H IV 08/03/20 10:00 09/02/20 09:59 Metoprolol Tartrate (Lopressor) 12.5 mg Q12HR GT 08/02/20 21:00 10/31/20 09:59 08/02/20 20:37 Metronidazole (Flagyl) 500 mg EVERY 8 HOURS ORAL 08/02/20 22:00 08/09/20 21:59 08/03/20 05:49 Pantoprazole (Protonix) 40 mg DAILY IVP 08/03/20 09:00 09/02/20 08:59 08/02/20 20:36 Sodium Bicarbonate 100 ml/Dextrose 1,100 ml @ 50 mls/hr Q22H IV 08/02/20 20:00 09/01/20 19:59 08/03/20 05:50 Assessment/Plan Assessment/Plan IMPRESSION: 1. Chronic respiratory failure. Chronic tracheostomy 2. Metabolic acidosis. Will continue HCO3 drip 3. Renal failure. HD per renal 4. Leukocytosis. 5. Sepsis. Source unclear; C dif negative; CXR clear DISCUSSION: Agree with broad spectrum antibiotics. I will continue AC mode. Currently FiO2 40%; PEEP 5 Continue bicarbonate supplementation. Noted plans for HD Hemodynamically stable I will follow carefully. Jeromy Ryan Omar Syed MD Aug 03, 2020 14:10
[2020-08-03] MEDS ORDERED: CALAZIME PASTE TOPIC (15:13)
--- NOTE | 2020-08-03 15:46 | General Progress Note ---
Subjective Date patient seen: Aug 03, 2020 ROS Limited/Unobtainable: Yes Allergies: Coded Allergies: No Known Allergies (Unverified , 08/01/20) Subjective Plan for HD today after discussing with daughter last night. HD line placed. Severely uremic. Not verbalizing, poor mental status. Objective Last 24 Hour Vital Signs Date Time Temp Pulse Resp B/P (MAP) Pulse Ox O2 Delivery O2 Flow Rate FiO2 08/03/20 15:00 99 23 113/68 (83) 99 08/03/20 14:00 103 27 115/66 (82) 94 08/03/20 13:00 103 20 131/74 (93) 100 08/03/20 12:00 104 08/03/20 12:00 30 08/03/20 12:00 Mechanical Ventilator 08/03/20 12:00 99.1 106 30 126/69 (88) 100 08/03/20 11:00 107 34 126/67 (86) 100 08/03/20 10:00 102 25 120/66 (84) 99 08/03/20 09:00 101 29 95/60 (72) 99 08/03/20 09:00 101 95/60 08/03/20 08:00 98.7 100 30 100/62 (75) 100 08/03/20 08:00 102 08/03/20 07:47 Mechanical Ventilator 08/03/20 07:46 40 08/03/20 07:00 101 30 91/57 (68) 100 08/03/20 06:00 99 27 108/67 (81) 100 08/03/20 05:00 97 25 113/72 (86) 100 08/03/20 04:00 99.4 94 23 126/76 (93) 100 08/03/20 04:00 Mechanical Ventilator 08/03/20 04:00 40 08/03/20 04:00 95 08/03/20 03:00 97 19 141/85 (103) 100 08/03/20 02:51 97 33 40 08/03/20 02:00 99.7 100 26 115/67 (83) 100 08/03/20 01:00 98 23 106/70 (82) 100 08/03/20 00:00 40 08/03/20 00:00 97 08/03/20 00:00 100.3 100 27 105/64 (78) 100 08/03/20 00:00 Mechanical Ventilator 08/02/20 23:00 97 29 100/66 (77) 100 08/02/20 22:50 95 28 40 08/02/20 22:00 97 31 104/71 (82) 100 08/02/20 21:00 105 27 107/65 (79) 100 08/02/20 20:37 110 112/66 08/02/20 20:00 Mechanical Ventilator 08/02/20 20:00 40 08/02/20 20:00 99.5 111 29 112/66 (81) 100 08/02/20 20:00 110 08/02/20 19:00 112 28 111/66 (81) 100 08/02/20 18:59 112 28 40 08/02/20 18:00 115 22 105/71 (82) 100 08/02/20 17:00 117 25 107/80 (89) 100 08/02/20 16:00 117 08/02/20 16:00 98.6 117 33 116/72 (87) 100 08/02/20 16:00 Mechanical Ventilator 08/02/20 16:00 40 Intake and Output 08/02/20 08/03/20 19:00 07:00 Intake Total 667.5 ml 1790 ml Output Total 625 ml 480 ml Balance 42.5 ml 1310 ml Intake Free Water 60 ml 200 ml IV Total 562.5 ml 1215 ml Tube Feeding 45 ml 375 ml Output Urine Total 625 ml 480 ml # Bowel Movements 50 Laboratory Tests 08/02/20 16:14: Troponin I 0.565H 08/02/20 23:15: Sodium Level 151H, Potassium Level 3.4L, Chloride Level 113H, Carbon Dioxide Level 12L, Anion Gap 26H, Blood Urea Nitrogen 371H, Creatinine 4.6H, Estimat Glomerular Filtration Rate 12.8, Glucose Level 245#H, Calcium Level 8.1L 08/03/20 04:00: Troponin I 0.498H, Sodium Level 151H, Potassium Level 2.6*L, Chloride Level 110H , Carbon Dioxide Level 15L, Anion Gap 26H, Blood Urea Nitrogen 348H, Creatinine 4.3H, Estimat Glomerular Filtration Rate 13.9, Glucose Level 276H, Calcium Level 7.7L, White Blood Count 14.1H, Red Blood Count 2.69L, Hemoglobin 8.3L, Hematocrit 25.0L, Mean Corpuscular Volume 93, Mean Corpuscular Hemoglobin 30.9, Mean Corpuscular Hemoglobin Concent 33.2, Red Cell Distribution Width 16.7H, Platelet Count 103L, Mean Platelet Volume 12.0H, Neutrophils (%) (Auto) , Lymphocytes (%) (Auto) , Monocytes (%) (Auto) , Eosinophils (%) (Auto) , Basophils (%) (Auto) , Differential Total Cells Counted 100, Neutrophils % (Manual) 85H, Lymphocytes % (Manual) 9L, Monocytes % (Manual) 5, Eosinophils % (Manual) 1, Basophils % (Manual) 0, Band Neutrophils 0, Platelet Estimate DecreasedL, Platelet Morphology Normal, Hypochromasia 2+, Anisocytosis 1+, Calcium (Send out) [Pending], Phosphorus Level 9.5H, Magnesium Level 2.8H, Vitamin D 25-Hydroxy [Pending], 25-Hydroxy Vitamin D2 [Pending], 25-Hydroxy Vitamin D3 [Pending], Parathyroid Hormone (Intact) [Pending], Hepatitis B Surface Antigen [Pending] 08/03/20 08:24: Arterial Blood pH 7.395, Arterial Blood Partial Pressure CO2 23.3*L, Arterial Blood Partial Pressure O2 186.5H, Arterial Blood HCO3 13.9*L, Arterial Blood Oxygen Saturation 99.0, Arterial Blood Base Excess -9.7*L, Russ Test Positive Height (Feet): 5 Height (Inches): 7.00 Weight (Pounds): 175 Objective General Appearance: lethargic, does not open eyes to voice Lines, tubes and drains: trach, HD line in place HEENT: normocephalic, atraumatic, mucous membranes moist Neck: normal alignment Respiratory/Chest: rhonchi - bilaterally Cardiovascular/Chest: normal peripheral pulses, regular rhythm Abdomen: soft, no mass, feeding tube Extremities: no edema, no cyanosis Skin Exam: normal pigmentation, warm/dry Neurologic: unresponsiveness Assessment/Plan Assessment/Plan: #Sepsis - high WBC count, lactate elevated. Unclear source. #Metabolic acidosis - likely from severe uremia #NSTEMI - may be demand ischemia in sepsis #Acute kidney injury - may be sepsis related. - s/p CTX, zosyn, IVF in ED - avoid nephrotoxic drugs - Plan for HD today after line placement - cefepime - low threshold to broaden antibiotics - f/u cultures - IVF - trend troponin - ID consult Dr. Stone - Nephro consult Dr. Sherman - Cardiology consult Dr. Mari #Acute on chronic respiratory failure #s/p tracheostomy #PEG status - Ventilator dependent - In ICU for ventilator - check ABG - CXR clear, low suspicion for pneumonia - Covid negative - pulmonary consult Dr. Nunez - tube feed - nutrition consult #Hx of thalamic infarct #Uremic encephalopathy? - nonverbal, lethargic currently - neurology consult Dr. Hale #Diabetes - ISS Fluids: IVF Diet: tube feed DVT ppx: heparin Code: heading up machine operator of my involvement, the patient's condition was critical with high potential for and/or physiologic deterioration secondary to sepsis and acute hypoxic respiratory failure as delineated in the note above. On the above date of service, I spent a total of 40 minutes in the ICU evaluating, managing, and providing critical care services to this patient, including time spent documenting these activities, counseling patient/family, and coordinating care. Critical care services performed include: -Telemetry review -Hemodynamic measurement interpretation -Laboratory data review and interpretation -Vent setting reviewed, management -Discussion of patient's care with medical team, and consultants -Decision to obtain further radiologic evaluation, after consideration of the risk/benefit ratio -Review of most recent microbiology results assessment and modification of antimicrobial coverage -Discussion of patient's CODE STATUS and further advancement towards the ultim ate goals of care. Plan outlined above discussed with patient/family, HOUSE SUPERVISOR, ICU team, and involved physician/consultants. Davidson Guzmán M.D. Aug 03, 2020 15:46
--- NOTE | 2020-08-03 20:21 | Neurology Progress Note ---
Interim History Interim History ROS Limited/Unobtainable: Yes Interim History lethargic, uremic plan for HD Objective Physical Exam Last Vital Signs Date Time Temp Pulse Resp B/P (MAP) Pulse Ox O2 Delivery O2 Flow Rate FiO2 08/03/20 20:15 124 08/03/20 20:00 30 08/03/20 20:00 Mechanical Ventilator 08/03/20 19:17 33 08/03/20 19:00 97/68 (78) 95 08/03/20 16:00 98.9 Laboratory Tests Test 08/02/20 23:15 08/03/20 04:00 08/03/20 08:24 Sodium Level 151 MMOL/L (136-145) H 151 MMOL/L (136-145) H Potassium Level 3.4 MMOL/L (3.5-5.1) L 2.6 MMOL/L (3.5-5.1) *L Chloride Level 113 MMOL/L (98-107) H 110 MMOL/L (98-107) H Carbon Dioxide Level 12 MMOL/L (21-32) L 15 MMOL/L (21-32) L Anion Gap 26 mmol/L (5-15) H 26 mmol/L (5-15) H Blood Urea Nitrogen 371 mg/dL (7-18) H 348 mg/dL (7-18) H Creatinine 4.6 MG/DL (0.55-1.30) H 4.3 MG/DL (0.55-1.30) H Estimat Glomerular Filtration Rate 12.8 mL/min (>60) 13.9 mL/min (>60) Glucose Level 245 MG/DL (74-106) #H 276 MG/DL (74-106) H Calcium Level 8.1 MG/DL (8.5-10.1) L 7.7 MG/DL (8.5-10.1) L White Blood Count 14.1 K/UL (4.8-10.8) H Red Blood Count 2.69 M/UL (4.70-6.10) L Hemoglobin 8.3 G/DL (14.2-18.0) L Hematocrit 25.0 % (42.0-52.0) L Mean Corpuscular Volume 93 FL (80-99) Mean Corpuscular Hemoglobin 30.9 PG (27.0-31.0) Mean Corpuscular Hemoglobin Concent 33.2 G/DL (32.0-36.0) Red Cell Distribution Width 16.7 % (11.6-14.8) H Platelet Count 103 K/UL (150-450) L Mean Platelet Volume 12.0 FL (6.5-10.1) H Neutrophils (%) (Auto) % (45.0-75.0) Lymphocytes (%) (Auto) % (20.0-45.0) Monocytes (%) (Auto) % (1.0-10.0) Eosinophils (%) (Auto) % (0.0-3.0) Basophils (%) (Auto) % (0.0-2.0) Differential Total Cells Counted 100 Neutrophils % (Manual) 85 % (45-75) H Lymphocytes % (Manual) 9 % (20-45) L Monocytes % (Manual) 5 % (1-10) Eosinophils % (Manual) 1 % (0-3) Basophils % (Manual) 0 % (0-2) Band Neutrophils 0 % (0-8) Platelet Estimate Decreased L Platelet Morphology Normal Hypochromasia 2+ Anisocytosis 1+ Calcium (Send out) Pending Phosphorus Level 9.5 MG/DL (2.5-4.9) H Magnesium Level 2.8 MG/DL (1.8-2.4) H Troponin I 0.498 ng/mL (0.000-0.056) Vitamin D 25-Hydroxy Pending 25-Hydroxy Vitamin D2 Pending 25-Hydroxy Vitamin D3 Pending Parathyroid Hormone (Intact) Pending Hepatitis B Surface Antigen Pending Arterial Blood pH 7.395 (7.350-7.450) Arterial Blood Partial Pressure CO2 23.3 mmHg (35.0-45.0) *L Arterial Blood Partial Pressure O2 186.5 mmHg (75.0-100.0) H Arterial Blood HCO3 13.9 mmol/L (22.0-26.0) *L Arterial Blood Oxygen Saturation 99.0 % (95-100) Arterial Blood Base Excess -9.7 (-2-2) *L Russ Test Positive Neurologic Exam Objective trach on vet tachy grimaces to pain cc 35 min Impression/Recommendations Problems: (1) Respiratory distress (2) Renal failure (3) Metabolic acidosis (4) NSTEMI (non-ST elevated myocardial infarction) (5) Sepsis Diagnostic Impression Encephalopathy, likely metabolic sepsis hx of left thalamic hemorrhage likely from htn icu level map > 65 monitor mental status cont atb fu cultures ok for heparin SC given ich is chronic Pedro Hale MD Aug 03, 2020 20:21
[2020-08-03] MEDS: Cefepime HCl 1 GM in D5W 55 ML IVPB SCH (20:55)
[2020-08-03] MEDS: Dyna-Hex 2% Top Sol 2oz TOPIC SCH (20:55)
[2020-08-03 23:25] LABS: CALCIUM 7.8 MG/DL (8.5-10.1); CREATININE 2.8 MG/DL (0.55-1.30)
[2020-08-03 23:26] LABS: POTASSIUM 2.6 MMOL/L (3.5-5.1)
[2020-08-04] VITALS (25 sets, daily range): BP systolic 87–156; BP diastolic 54–88
[2020-08-04] MEDS: Sodium Bicarbonate 100 ML in D5W 1000ml 1,000 ML IV SCH (04:02)
[2020-08-04] MEDS: metroNIDAZOLE 500mg tab ORAL SCH ×3 (05:34→22:20)
[2020-08-04 06:03] LABS: HEMATOCRIT 21.8 % (42.0-52.0); HEMOGLOBIN 7.4 G/DL (14.2-18.0); MEAN CORPUSCULAR VOLUME 88 FL (80-99); PLATELET COUNT 105 K/UL (150-450); RED BLOOD COUNT 2.48 M/UL (4.70-6.10); WHITE BLOOD COUNT 12.3 K/UL (4.8-10.8)
[2020-08-04 06:26] LABS: PHOSPHORUS 7.4 MG/DL (2.5-4.9)
[2020-08-04 07:18] LABS: CALCIUM 7.8 MG/DL (8.5-10.1); CREATININE 2.8 MG/DL (0.55-1.30)
--- NOTE | 2020-08-04 07:25 | Cardiac Electrophysiology PN ---
Assessment/Plan Assessment/Plan 1. Troponin elevation. Levels are coming down at 0.8 to 0.5. Due to renal failure with BUN of 343, creatinine of 4.1 as well as sepsis with white count of 22,000. His EKG also shows sinus rhythm with inferolateral ischemia. On Lopressor 12.5 bid. 2. Shortness of breath with respiratory failure, status post tracheostomy, on the ventilator with 30% FiO2. 3. Dysphagia, status post PEG placement. 4. Acute renal failure with BUN of 343, creatinine of 4.1. The patient was already evaluated by Nephrology. S/P Nicholas catheter and first HD 08/03 5. Diabetes. 6. History of left thalamic hemorrhage. Subjective Subjective S/P Right groin Nicholas catheter placement by Dr Brand and HD yesterday, on 30% Fio2 via trach Objective Last 24 Hour Vital Signs Date Time Temp Pulse Resp B/P (MAP) Pulse Ox O2 Delivery O2 Flow Rate FiO2 08/04/20 07:00 92 23 96/63 (74) 100 08/04/20 06:00 94 16 111/69 (83) 100 08/04/20 05:00 93 21 114/69 (84) 100 08/04/20 04:00 Mechanical Ventilator 08/04/20 04:00 87 08/04/20 04:00 97.7 94 19 108/63 (78) 100 08/04/20 04:00 30 08/04/20 03:30 93 23 102/62 (75) 100 08/04/20 03:00 99 19 112/64 (80) 08/04/20 02:40 93 24 30 08/04/20 02:00 101 23 106/65 (79) 100 08/04/20 01:00 102 23 105/70 (82) 100 08/04/20 00:24 114 08/04/20 00:00 98.5 110 28 118/74 (89) 99 08/04/20 00:00 Mechanical Ventilator 08/03/20 23:00 111 27 110/66 (81) 99 08/03/20 22:45 109 25 30 08/03/20 22:00 115 26 110/67 (81) 99 08/03/20 21:00 125 33 131/79 (96) 99 08/03/20 20:55 124 133/76 08/03/20 20:15 124 08/03/20 20:00 30 08/03/20 20:00 Mechanical Ventilator 08/03/20 20:00 98.2 121 21 128/76 (93) 99 08/03/20 19:17 121 33 30 08/03/20 19:00 126 31 97/68 (78) 95 08/03/20 18:00 135 19 100/64 (76) 08/03/20 17:00 119 30 127/83 (98) 99 08/03/20 16:00 30 08/03/20 16:00 98.9 101 25 140/74 (96) 99 08/03/20 16:00 98 08/03/20 16:00 Mechanical Ventilator 08/03/20 15:30 110 28 30 08/03/20 15:00 99 23 113/68 (83) 99 08/03/20 14:00 103 27 115/66 (82) 94 08/03/20 13:00 103 20 131/74 (93) 100 08/03/20 12:00 104 08/03/20 12:00 30 08/03/20 12:00 Mechanical Ventilator 08/03/20 12:00 99.1 106 30 126/69 (88) 100 08/03/20 11:34 105 27 30 08/03/20 11:00 107 34 126/67 (86) 100 08/03/20 10:00 102 25 120/66 (84) 99 08/03/20 09:00 101 29 95/60 (72) 99 08/03/20 09:00 101 95/60 08/03/20 08:00 98.7 100 30 100/62 (75) 100 08/03/20 08:00 102 08/03/20 07:47 Mechanical Ventilator 08/03/20 07:46 40 08/03/20 07:25 101 30 40 Intake and Output 08/03/20 08/04/20 19:00 07:00 Intake Total 1730 ml 820 ml Output Total 975 ml 345 ml Balance 755 ml 475 ml Intake Free Water 50 ml 30 ml IV Total 1200 ml 450 ml Tube Feeding 480 ml 340 ml Output Urine Total 925 ml 345 ml Stool Total 50 ml Laboratory Tests Test 08/03/20 08:24 08/03/20 23:00 08/04/20 04:45 Arterial Blood pH 7.395 (7.350-7.450) Arterial Blood Partial Pressure CO2 23.3 mmHg (35.0-45.0) *L Arterial Blood Partial Pressure O2 186.5 mmHg (75.0-100.0) H Arterial Blood HCO3 13.9 mmol/L (22.0-26.0) *L Arterial Blood Oxygen Saturation 99.0 % (95-100) Arterial Blood Base Excess -9.7 (-2-2) *L Russ Test Positive Sodium Level 143 MMOL/L (136-145) Pending Potassium Level 2.6 MMOL/L (3.5-5.1) *L Pending Chloride Level 103 MMOL/L (98-107) Pending Carbon Dioxide Level 24 MMOL/L (21-32) Pending Anion Gap 16 mmol/L (5-15) H Blood Urea Nitrogen 200 mg/dL (7-18) #H Pending Creatinine 2.8 MG/DL (0.55-1.30) H Pending Estimat Glomerular Filtration Rate 22.8 mL/min (>60) Pending Glucose Level 202 MG/DL (74-106) H Pending Calcium Level 7.8 MG/DL (8.5-10.1) L Pending White Blood Count 12.3 K/UL (4.8-10.8) H Red Blood Count 2.48 M/UL (4.70-6.10) L Hemoglobin 7.4 G/DL (14.2-18.0) L Hematocrit 21.8 % (42.0-52.0) L Mean Corpuscular Volume 88 FL (80-99) Mean Corpuscular Hemoglobin 29.9 PG (27.0-31.0) Mean Corpuscular Hemoglobin Concent 34.1 G/DL (32.0-36.0) Red Cell Distribution Width 16.0 % (11.6-14.8) H Platelet Count 105 K/UL (150-450) L Mean Platelet Volume 12.8 FL (6.5-10.1) H Neutrophils (%) (Auto) % (45.0-75.0) Lymphocytes (%) (Auto) % (20.0-45.0) Monocytes (%) (Auto) % (1.0-10.0) Eosinophils (%) (Auto) % (0.0-3.0) Basophils (%) (Auto) % (0.0-2.0) Phosphorus Level 7.4 MG/DL (2.5-4.9) H Magnesium Level 2.2 MG/DL (1.8-2.4) Microbiology Date/Time Source Procedure Growth Status 08/02/20 05:00 Rectum VRE Culture - Final NO VANCOMYCIN RESISTANT ENTEROCOCCUS ... Complete 08/02/20 05:00 Rectum - Final NO CARBAPENEM-RESISTANT ENTEROBACTERI... Complete 08/02/20 05:00 Stool Clostridium difficile Toxin Assay - Final Complete 08/02/20 05:00 Nasal Nares MRSA Culture - Final NO METHICILLIN RESISTANT STAPH AUREUS... Complete 08/01/20 23:00 Straight Cath Urine Culture - Preliminary NO GROWTH Resulted 08/01/20 16:06 Nasal Nares - Final Complete 08/01/20 16:06 Nasal Nares - Final Complete 08/01/20 13:10 Nasopharynx SARS-CoV-2 RdRp Gene Assay - Final Complete 08/01/20 13:10 Blood Blood Culture - Preliminary NO GROWTH AFTER 48 HOURS Resulted 08/01/20 12:50 Blood Blood Culture - Preliminary NO GROWTH AFTER 48 HOURS Resulted Objective HEAD AND NECK: Status post tracheostomy with no JVD. LUNGS: Coarse rhonchi. CARDIOVASCULAR: Regular S1 and S2 with no gallop. ABDOMEN: Status post G-tube. EXTREMITIES: No pitting edema. Gregorio Mari MD Aug 04, 2020 07:25
[2020-08-04 07:34] LABS: POTASSIUM 2.4 MMOL/L (3.5-5.1)
[2020-08-04] MEDS: Pantoprazole Inj IVP SCH (08:20)
[2020-08-04] MEDS: Metoprolol Tartrate 12.5mg TAB GT SCH ×2 (08:21→21:15)
[2020-08-04] MEDS: Heparin 5000 units/ml inj SUBQ SCH ×2 (08:21→21:00)
--- NOTE | 2020-08-04 09:09 | Hematology/Onc Progress Note ---
Assessment/Plan Assessment/Plan ASSESSMENT AND PLAN: # Leukocytosis is due to sepsis, fevers, leukocytosis. Avoid nephrotoxic drugs. --> ABX Continue Zyvox, cefepime, and Flagyl --> iamging has been reviewed --> as per pulm and id recs --> wbc 22-->18-->12 # Anemia due to hemodilution --> if lower than 10, get workup --> transfuse prn --> hgb 11-->10-->7.4 # Thrombocytopenia due to underlying infection --> medications have been reviewed --> 186-->127--.105 --> is on hep, monitor # Trach, vent. # Dysphagia, on G-tube. 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 # Diabetes. # Hypertension. # Acute renal failure. # GERD. # Dvt ppx heparin sq Appreciate consultation and dw RN Subjective HEENT: Denies: no symptoms, eye pain, blurred vision, tearing, double vision, ear pain, ear discharge, nose pain, nose congestion, throat pain, throat swelling, mouth pain, mouth swelling, other Cardiovascular: Denies: no symptoms, chest pain, edema, irregular heart rate, lightheadedness, palpitations, syncope, other Respiratory: Denies: no symptoms, cough, shortness of breath, SOB with excertion, SOB at rest, sputum, wheezing, other Genitourinary: Denies: no symptoms, burning, discharge, frequency, flank pain, hematuria, incontinence, pain, urgency, other Neurologic/Psychiatric: Denies: no symptoms, anxiety, depressed, emotional problems, headache, numbness, paresthesia, pre-existing deficit, seizure, tingling, tremors, weakness, other Endocrine: Denies: no symptoms, excessive sweating, flushing, intolerance to cold, intolerance to heat, increased hunger, increased thirst, increased urine, unexplained weight gain, unexplained weight loss, other Allergies: Coded Allergies: No Known Allergies (Unverified , 08/01/20) Subjective 08/04 remains on vent, abx, labs reviewed, meds noted Objective Objective Current Medications Medications (Trade) Dose Ordered Sig/Maegan Route PRN Reason Start Time Stop Time Status Last Admin Dose Admin Acetaminophen (Tylenol) 650 mg Q4H PRN GT For Pain 08/02/20 15:45 09/01/20 15:44 08/03/20 02:13 Acetaminophen (Tylenol) 650 mg Q4H PRN GT Temp >100.5 08/02/20 15:45 09/01/20 15:44 Cefepime HCl 1 gm/ Dextrose 55 ml @ 110 mls/hr Q24H IVPB 08/01/20 21:00 08/08/20 20:59 08/03/20 20:55 Chlorhexidine Gluconate (Deisy-Hex 2%) 1 applic BIOTEC TOPIC 08/02/20 21:00 10/31/20 20:59 08/03/20 20:55 Dextrose 1,000 ml @ 0 mls/hr Q0M IV 08/02/20 09:15 09/01/20 09:14 Heparin Sodium (Porcine) (Heparin 5000 units/ml) 5,000 units EVERY 12 HOURS SUBQ 08/02/20 21:00 09/16/20 20:59 08/02/20 20:38 Linezolid (Zyvox) 600 mg EVERY 12 HOURS ORAL 08/02/20 21:00 08/07/20 20:59 08/04/20 08:20 Metoprolol Tartrate (Lopressor) 12.5 mg Q12HR GT 08/02/20 21:00 10/31/20 09:59 08/03/20 20:55 Metronidazole (Flagyl) 500 mg EVERY 8 HOURS ORAL 08/02/20 22:00 08/09/20 21:59 08/04/20 05:34 Pantoprazole (Protonix) 40 mg DAILY IVP 08/03/20 09:00 09/02/20 08:59 08/04/20 08:20 Sodium Bicarbonate 100 ml/Dextrose 1,100 ml @ 50 mls/hr Q22H IV 08/02/20 20:00 09/01/20 19:59 08/04/20 04:02 Last 24 Hour Vital Signs Date Time Temp Pulse Resp B/P (MAP) Pulse Ox O2 Delivery O2 Flow Rate FiO2 08/04/20 08:21 88 94/57 08/04/20 07:25 92 25 30 08/04/20 07:00 92 23 96/63 (74) 100 08/04/20 06:00 94 16 111/69 (83) 100 12/25/20 05:00 93 21 114/69 (84) 100 08/04/20 04:00 Mechanical Ventilator 08/04/20 04:00 87 08/04/20 04:00 97.7 94 19 108/63 (78) 100 08/04/20 04:00 30 08/04/20 03:30 93 23 102/62 (75) 100 08/04/20 03:00 99 19 112/64 (80) 08/04/20 02:40 93 24 30 08/04/20 02:00 101 23 106/65 (79) 100 08/04/20 01:00 102 23 105/70 (82) 100 08/04/20 00:24 114 08/04/20 00:00 98.5 110 28 118/74 (89) 99 08/04/20 00:00 Mechanical Ventilator 08/03/20 23:00 111 27 110/66 (81) 99 08/03/20 22:45 109 25 30 08/03/20 22:00 115 26 110/67 (81) 99 08/03/20 21:00 125 33 131/79 (96) 99 08/03/20 20:55 124 133/76 08/03/20 20:15 124 08/03/20 20:00 30 08/03/20 20:00 Mechanical Ventilator 08/03/20 20:00 98.2 121 21 128/76 (93) 99 08/03/20 19:17 121 33 30 08/03/20 19:00 126 31 97/68 (78) 95 08/03/20 18:00 135 19 100/64 (76) 08/03/20 17:00 119 30 127/83 (98) 99 08/03/20 16:00 30 08/03/20 16:00 98.9 101 25 140/74 (96) 99 08/03/20 16:00 98 08/03/20 16:00 Mechanical Ventilator 08/03/20 15:30 110 28 30 08/03/20 15:00 99 23 113/68 (83) 99 08/03/20 14:00 103 27 115/66 (82) 94 08/03/20 13:00 103 20 131/74 (93) 100 08/03/20 12:00 104 08/03/20 12:00 30 08/03/20 12:00 Mechanical Ventilator 08/03/20 12:00 99.1 106 30 126/69 (88) 100 08/03/20 11:34 105 27 30 08/03/20 11:00 107 34 126/67 (86) 100 08/03/20 10:00 102 25 120/66 (84) 99 08/03/20 09:00 101 29 95/60 (72) 99 08/03/20 09:00 101 95/60 08/03/20 08:00 98.7 100 30 100/62 (75) 100 08/03/20 08:00 102 08/03/20 07:47 Mechanical Ventilator 08/03/20 07:46 40 08/03/20 07:25 101 30 40 08/03/20 07:00 101 30 91/57 (68) 100 08/03/20 06:00 99 27 108/67 (81) 100 08/03/20 05:00 97 25 113/72 (86) 100 08/03/20 04:00 99.4 94 23 126/76 (93) 100 08/03/20 04:00 Mechanical Ventilator 08/03/20 04:00 40 08/03/20 04:00 95 08/03/20 03:00 97 19 141/85 (103) 100 08/03/20 02:51 97 33 40 08/03/20 02:00 99.7 100 26 115/67 (83) 100 08/03/20 01:00 98 23 106/70 (82) 100 08/03/20 00:00 40 08/03/20 00:00 97 08/03/20 00:00 100.3 100 27 105/64 (78) 100 08/03/20 00:00 Mechanical Ventilator 08/02/20 23:00 97 29 100/66 (77) 100 08/02/20 22:50 95 28 40 08/02/20 22:00 97 31 104/71 (82) 100 08/02/20 21:00 105 27 107/65 (79) 100 08/02/20 20:37 110 112/66 08/02/20 20:00 Mechanical Ventilator 08/02/20 20:00 40 08/02/20 20:00 99.5 111 29 112/66 (81) 100 08/02/20 20:00 110 08/02/20 19:00 112 28 111/66 (81) 100 08/02/20 18:59 112 28 40 08/02/20 18:00 115 22 105/71 (82) 100 08/02/20 17:00 117 25 107/80 (89) 100 08/02/20 16:00 117 08/02/20 16:00 98.6 117 33 116/72 (87) 100 08/02/20 16:00 Mechanical Ventilator 08/02/20 16:00 40 08/02/20 15:28 117 34 40 08/02/20 15:00 119 32 104/69 (81) 100 08/02/20 14:00 115 25 111/84 (93) 100 08/02/20 13:00 115 33 109/73 (85) 100 08/02/20 12:00 114 08/02/20 12:00 40 08/02/20 12:00 98.4 113 29 117/77 (90) 100 08/02/20 12:00 Mechanical Ventilator 08/02/20 11:28 115 33 40 08/02/20 11:00 113 25 104/74 (84) 100 08/02/20 10:00 112 33 108/76 (87) 99 Intake and Output 08/03/20 08/04/20 19:00 07:00 Intake Total 1730 ml 820 ml Output Total 975 ml 345 ml Balance 755 ml 475 ml Intake Free Water 50 ml 30 ml IV Total 1200 ml 450 ml Tube Feeding 480 ml 340 ml Output Urine Total 925 ml 345 ml Stool Total 50 ml Labs Test 08/01/20 13:10 08/01/20 13:38 08/01/20 23:00 08/02/20 03:50 White Blood Count 22.2 K/UL (4.8-10.8) 17.6 K/UL (4.8-10.8) Red Blood Count 3.78 M/UL (4.70-6.10) 3.30 M/UL (4.70-6.10) Hemoglobin 11.5 G/DL (14.2-18.0) 10.0 G/DL (14.2-18.0) Hematocrit 34.1 % (42.0-52.0) 29.4 % (42.0-52.0) Mean Corpuscular Volume 90 FL (80-99) 89 FL (80-99) Mean Corpuscular Hemoglobin 30.3 PG (27.0-31.0) 30.2 PG (27.0-31.0) Mean Corpuscular Hemoglobin Concent 33.6 G/DL (32.0-36.0) 34.0 G/DL (32.0-36.0) Red Cell Distribution Width 16.4 % (11.6-14.8) 15.8 % (11.6-14.8) Platelet Count 183 K/UL (150-450) 127 K/UL (150-450) Mean Platelet Volume 12.3 FL (6.5-10.1) 11.9 FL (6.5-10.1) Neutrophils (%) (Auto) % (45.0-75.0) % (45.0-75.0) Lymphocytes (%) (Auto) % (20.0-45.0) % (20.0-45.0) Monocytes (%) (Auto) % (1.0-10.0) % (1.0-10.0) Eosinophils (%) (Auto) % (0.0-3.0) % (0.0-3.0) Basophils (%) (Auto) % (0.0-2.0) % (0.0-2.0) Differential Total Cells Counted 100 100 Neutrophils % (Manual) 84 % (45-75) 84 % (45-75) Lymphocytes % (Manual) 8 % (20-45) 7 % (20-45) Monocytes % (Manual) 3 % (1-10) 5 % (1-10) Eosinophils % (Manual) 0 % (0-3) 1 % (0-3) Basophils % (Manual) 0 % (0-2) 0 % (0-2) Band Neutrophils 5 % (0-8) 3 % (0-8) Platelet Estimate Adequate Decreased Platelet Morphology Normal Normal Hypochromasia 1+ Anisocytosis 1+ 1+ Prothrombin Time 11.8 SEC (9.30-11.50) Prothromb Time International Ratio 1.1 (0.9-1.1) Activated Partial Thromboplast Time 22 SEC (23-33) D-Dimer 4.70 mg/L FEU (0.00-0.49) Urine Color Yellow Urine Appearance Clear Urine pH 5 (4.5-8.0) Urine Specific [place] 1.015 (1.005-1.035) Urine Protein 2+ (NEGATIVE) Urine Glucose (UA) 1+ (NEGATIVE) Urine Ketones Negative (NEGATIVE) Urine Blood 1+ (NEGATIVE) Urine Nitrite Negative (NEGATIVE) Urine Bilirubin Negative (NEGATIVE) Urine Urobilinogen Normal MG/DL (0.0-1.0) Urine Leukocyte Esterase 1+ (NEGATIVE) Urine RBC 0-2 /HPF (0 - 0) Urine WBC 2-4 /HPF (0 - 0) Urine Squamous Epithelial Cells Occasional /LPF Urine Bacteria Occasional /HPF (NONE) Sodium Level 149 MMOL/L (136-145) 154 MMOL/L (136-145) Potassium Level 4.9 MMOL/L (3.5-5.1) 3.5 MMOL/L (3.5-5.1) Chloride Level 111 MMOL/L (98-107) 116 MMOL/L (98-107) Carbon Dioxide Level 13 MMOL/L (21-32) 11 MMOL/L (21-32) Anion Gap 25 mmol/L (5-15) 27 mmol/L (5-15) Blood Urea Nitrogen 346 mg/dL (7-18) 343 mg/dL (7-18) Creatinine 4.2 MG/DL (0.55-1.30) 4.1 MG/DL (0.55-1.30) Estimat Glomerular Filtration Rate 14.3 mL/min (>60) 14.7 mL/min (>60) Glucose Level 202 MG/DL (74-106) 144 MG/DL (74-106) Lactic Acid Level 1.40 mmol/L (0.4-2.0) 0.90 mmol/L (0.4-2.0) Calcium Level 8.6 MG/DL (8.5-10.1) 8.0 MG/DL (8.5-10.1) Phosphorus Level 10.0 MG/DL (2.5-4.9) Magnesium Level 3.5 MG/DL (1.8-2.4) Ferritin 730 NG/ML (8-388) Total Bilirubin 0.8 MG/DL (0.2-1.0) Aspartate Amino Transf (AST/SGOT) 40 U/L (15-37) Alanine Aminotransferase (ALT/SGPT) 261 U/L (12-78) Alkaline Phosphatase 235 U/L (46-116) Lactate Dehydrogenase 213 U/L (81-234) Total Creatine Kinase 98 U/L (26-308) Creatine Kinase MB 2.7 NG/ML (0.0-3.6) Creatine Kinase MB Relative Index 2.7 Troponin I 0.806 ng/mL (0.000-0.056) 0.551 ng/mL (0.000-0.056) C-Reactive Protein, Quantitative 0.9 mg/dL (0.00-0.90) Pro-B-Type Natriuretic Peptide 1395 pg/mL (0-125) Total Protein 7.6 G/DL (6.4-8.2) Albumin 2.7 G/DL (3.4-5.0) Globulin 4.9 g/dL Albumin/Globulin Ratio 0.6 (1.0-2.7) Arterial Blood pH 7.241 (7.350-7.450) Arterial Blood Partial Pressure CO2 23.5 mmHg (35.0-45.0) Arterial Blood Partial Pressure O2 84.0 mmHg (75.0-100.0) Arterial Blood HCO3 9.9 mmol/L (22.0-26.0) Arterial Blood Oxygen Saturation 95.5 % (95-100) Arterial Blood Base Excess -15.7 (-2-2) Russ Test Positive Urine Random Sodium 39 mmol/L (20-110) Urine Creatinine 22.9 MG/DL (30.0-125.0) Test 08/02/20 05:00 08/02/20 08:12 08/02/20 16:14 08/02/20 23:15 Stool Occult Blood Positive (NEGATIVE) Arterial Blood pH 7.241 (7.350-7.450) Arterial Blood Partial Pressure CO2 20.9 mmHg (35.0-45.0) Arterial Blood Partial Pressure O2 193.9 mmHg (75.0-100.0) Arterial Blood HCO3 8.8 mmol/L (22.0-26.0) Arterial Blood Oxygen Saturation 98.8 % (95-100) Arterial Blood Base Excess -16.7 (-2-2) Russ Test Positive Troponin I 0.565 ng/mL (0.000-0.056) Sodium Level 151 MMOL/L (136-145) Potassium Level 3.4 MMOL/L (3.5-5.1) Chloride Level 113 MMOL/L (98-107) Carbon Dioxide Level 12 MMOL/L (21-32) Anion Gap 26 mmol/L (5-15) Blood Urea Nitrogen 371 mg/dL (7-18) Creatinine 4.6 MG/DL (0.55-1.30) Estimat Glomerular Filtration Rate 12.8 mL/min (>60) Glucose Level 245 MG/DL (74-106) Calcium Level 8.1 MG/DL (8.5-10.1) Test 08/03/20 04:00 08/03/20 08:24 08/03/20 23:00 08/04/20 04:45 White Blood Count 14.1 K/UL (4.8-10.8) 12.3 K/UL (4.8-10.8) Red Blood Count 2.69 M/UL (4.70-6.10) 2.48 M/UL (4.70-6.10) Hemoglobin 8.3 G/DL (14.2-18.0) 7.4 G/DL (14.2-18.0) Hematocrit 25.0 % (42.0-52.0) 21.8 % (42.0-52.0) Mean Corpuscular Volume 93 FL (80-99) 88 FL (80-99) Mean Corpuscular Hemoglobin 30.9 PG (27.0-31.0) 29.9 PG (27.0-31.0) Mean Corpuscular Hemoglobin Concent 33.2 G/DL (32.0-36.0) 34.1 G/DL (32.0-36.0) Red Cell Distribution Width 16.7 % (11.6-14.8) 16.0 % (11.6-14.8) Platelet Count 103 K/UL (150-450) 105 K/UL (150-450) Mean Platelet Volume 12.0 FL (6.5-10.1) 12.8 FL (6.5-10.1) Neutrophils (%) (Auto) % (45.0-75.0) % (45.0-75.0) Lymphocytes (%) (Auto) % (20.0-45.0) % (20.0-45.0) Monocytes (%) (Auto) % (1.0-10.0) % (1.0-10.0) Eosinophils (%) (Auto) % (0.0-3.0) % (0.0-3.0) Basophils (%) (Auto) % (0.0-2.0) % (0.0-2.0) Differential Total Cells Counted 100 Neutrophils % (Manual) 85 % (45-75) Lymphocytes % (Manual) 9 % (20-45) Monocytes % (Manual) 5 % (1-10) Eosinophils % (Manual) 1 % (0-3) Basophils % (Manual) 0 % (0-2) Band Neutrophils 0 % (0-8) Platelet Estimate Decreased Platelet Morphology Normal Hypochromasia 2+ Anisocytosis 1+ Sodium Level 151 MMOL/L (136-145) 143 MMOL/L (136-145) 143 MMOL/L (136-145) Potassium Level 2.6 MMOL/L (3.5-5.1) 2.6 MMOL/L (3.5-5.1) 2.4 MMOL/L (3.5-5.1) Chloride Level 110 MMOL/L (98-107) 103 MMOL/L (98-107) 103 MMOL/L (98-107) Carbon Dioxide Level 15 MMOL/L (21-32) 24 MMOL/L (21-32) 23 MMOL/L (21-32) Anion Gap 26 mmol/L (5-15) 16 mmol/L (5-15) 18 mmol/L (5-15) Blood Urea Nitrogen 348 mg/dL (7-18) 200 mg/dL (7-18) 193 mg/dL (7-18) Creatinine 4.3 MG/DL (0.55-1.30) 2.8 MG/DL (0.55-1.30) 2.8 MG/DL (0.55-1.30) Estimat Glomerular Filtration Rate 13.9 mL/min (>60) 22.8 mL/min (>60) 22.8 mL/min (>60) Glucose Level 276 MG/DL (74-106) 202 MG/DL (74-106) 149 MG/DL (74-106) Calcium Level 7.7 MG/DL (8.5-10.1) 7.8 MG/DL (8.5-10.1) 7.8 MG/DL (8.5-10.1) Calcium (Send out) 7.8 mg/dL (8.6-10.2) Phosphorus Level 9.5 MG/DL (2.5-4.9) 7.4 MG/DL (2.5-4.9) Magnesium Level 2.8 MG/DL (1.8-2.4) 2.2 MG/DL (1.8-2.4) Troponin I 0.498 ng/mL (0.000-0.056) PTH (Intact) Whole Molecule Comment (.) Parathyroid Hormone (Intact) 285 pg/mL (15-65) Arterial Blood pH 7.395 (7.350-7.450) Arterial Blood Partial Pressure CO2 23.3 mmHg (35.0-45.0) Arterial Blood Partial Pressure O2 186.5 mmHg (75.0-100.0) Arterial Blood HCO3 13.9 mmol/L (22.0-26.0) Arterial Blood Oxygen Saturation 99.0 % (95-100) Arterial Blood Base Excess -9.7 (-2-2) Russ Test Positive Height (Feet): 5 Height (Inches): 7.00 Weight (Pounds): 175 Objective Physical Exam General Appearance: lethargic Lines, tubes and drains: trach+++ vent++++ HEENT: normocephalic, atraumatic, mucous membranes moist Neck: normal alignment Respiratory/Chest: rhonchi - bilaterally Cardiovascular/Chest: normal peripheral pulses, regular rhythm Abdomen: soft, no mass, feeding tube Extremities: no edema, no cyanosis Skin Exam: normal pigmentation, warm/dry Neurologic: unresponsiveness Karthik Mercedes MD Aug 04, 2020 09:09
--- NOTE | 2020-08-04 10:28 | Nephrology Progress Note ---
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 per daughter #Uremia #Anemia #Pneumonia #sepsis - per discussion with daughter - HD is in line with goals of care - HD again today - DC bicarb drip - add sevelamer - monitor ABG - antibiotics per ID - avoid nephrotoxins - monitor UOP - monitor electrolytes time spent 65 min Subjective ROS Limited/Unobtainable: Yes Subjective s/p HD yesterday Objective Objective Last 24 Hour Vital Signs Date Time Temp Pulse Resp B/P (MAP) Pulse Ox O2 Delivery O2 Flow Rate FiO2 08/04/20 10:00 89 21 87/54 (65) 100 08/04/20 09:00 90 18 109/66 (80) 100 08/04/20 08:21 88 94/57 08/04/20 08:00 98.3 88 21 94/57 (69) 100 08/04/20 08:00 30 08/04/20 08:00 Mechanical Ventilator 08/04/20 07:55 87 08/04/20 07:25 92 25 30 08/04/20 07:00 92 23 96/63 (74) 100 08/04/20 06:00 94 16 111/69 (83) 100 08/04/20 05:00 93 21 114/69 (84) 100 08/04/20 04:00 Mechanical Ventilator 08/04/20 04:00 87 08/04/20 04:00 97.7 94 19 108/63 (78) 100 08/04/20 04:00 30 08/04/20 03:30 93 23 102/62 (75) 100 08/04/20 03:00 99 19 112/64 (80) 08/04/20 02:40 93 24 30 08/04/20 02:00 101 23 106/65 (79) 100 08/04/20 01:00 102 23 105/70 (82) 100 08/04/20 00:24 114 08/04/20 00:00 98.5 110 28 118/74 (89) 99 08/04/20 00:00 Mechanical Ventilator 08/03/20 23:00 111 27 110/66 (81) 99 08/03/20 22:45 109 25 30 08/03/20 22:00 115 26 110/67 (81) 99 08/03/20 21:00 125 33 131/79 (96) 99 08/03/20 20:55 124 133/76 08/03/20 20:15 124 08/03/20 20:00 30 08/03/20 20:00 Mechanical Ventilator 08/03/20 20:00 98.2 121 21 128/76 (93) 99 08/03/20 19:17 121 33 30 08/03/20 19:00 126 31 97/68 (78) 95 08/03/20 18:00 135 19 100/64 (76) 08/03/20 17:00 119 30 127/83 (98) 99 08/03/20 16:00 30 08/03/20 16:00 98.9 101 25 140/74 (96) 99 08/03/20 16:00 98 08/03/20 16:00 Mechanical Ventilator 08/03/20 15:30 110 28 30 08/03/20 15:00 99 23 113/68 (83) 99 08/03/20 14:00 103 27 115/66 (82) 94 08/03/20 13:00 103 20 131/74 (93) 100 08/03/20 12:00 104 08/03/20 12:00 30 08/03/20 12:00 Mechanical Ventilator 08/03/20 12:00 99.1 106 30 126/69 (88) 100 08/03/20 11:34 105 27 30 08/03/20 11:00 107 34 126/67 (86) 100 Intake and Output 08/03/20 08/04/20 19:00 07:00 Intake Total 1730 ml 820 ml Output Total 975 ml 345 ml Balance 755 ml 475 ml Intake Free Water 50 ml 30 ml IV Total 1200 ml 450 ml Tube Feeding 480 ml 340 ml Output Urine Total 925 ml 345 ml Stool Total 50 ml Laboratory Tests 08/03/20 23:00: Sodium Level 143, Potassium Level 2.6*L, Chloride Level 103, Carbon Dioxide Level 24, Anion Gap 16H, Blood Urea Nitrogen 200#H, Creatinine 2.8H, Estimat Glomerular Filtration Rate 22.8, Glucose Level 202H, Calcium Level 7.8L 08/04/20 04:45: Sodium Level 143, Potassium Level 2.4*L, Chloride Level 103, Carbon Dioxide Level 23, Anion Gap 18H, Blood Urea Nitrogen 193H, Creatinine 2.8H, Estimat Glomerular Filtration Rate 22.8, Glucose Level 149H, Calcium Level 7.8L, White Blood Count 12.3H, Red Blood Count 2.48L, Hemoglobin 7.4L, Hematocrit 21.8L, Mean Corpuscular Volume 88, Mean Corpuscular Hemoglobin 29.9, Mean Corpuscular Hemoglobin Concent 34.1, Red Cell Distribution Width 16.0H, Platelet Count 105L, Mean Platelet Volume 12.8H, Neutrophils (%) (Auto) , Lymphocytes (%) (Auto) , Monocytes (%) (Auto) , Eosinophils (%) (Auto) , Basophils (%) (Auto) , Phosphorus Level 7.4H, Magnesium Level 2.2 Height (Feet): 5 Height (Inches): 7.00 Weight (Pounds): 175 Gladys Sherman M.D. Aug 04, 2020 10:28
--- NOTE | 2020-08-04 11:45 | Surgery Progress Note ---
Surgery Progress Note Subjective Procedure Performed right femoral temporary hemodialysis catheter insertion Additional Comments ill appearing no n/v labs noted exam stable Objective Last 24 Hour Vital Signs Date Time Temp Pulse Resp B/P (MAP) Pulse Ox O2 Delivery O2 Flow Rate FiO2 08/04/20 11:10 84 23 30 08/04/20 10:00 89 21 87/54 (65) 100 08/04/20 09:00 90 18 109/66 (80) 100 08/04/20 08:21 88 94/57 08/04/20 08:00 98.3 88 21 94/57 (69) 100 08/04/20 08:00 30 08/04/20 08:00 Mechanical Ventilator 08/04/20 07:55 87 08/04/20 07:25 92 25 30 08/04/20 07:00 92 23 96/63 (74) 100 08/04/20 06:00 94 16 111/69 (83) 100 08/04/20 05:00 93 21 114/69 (84) 100 08/04/20 04:00 Mechanical Ventilator 08/04/20 04:00 87 08/04/20 04:00 97.7 94 19 108/63 (78) 100 08/04/20 04:00 30 08/04/20 03:30 93 23 102/62 (75) 100 08/04/20 03:00 99 19 112/64 (80) 08/04/20 02:40 93 24 30 08/04/20 02:00 101 23 106/65 (79) 100 08/04/20 01:00 102 23 105/70 (82) 100 08/04/20 00:24 114 08/04/20 00:00 98.5 110 28 118/74 (89) 99 08/04/20 00:00 Mechanical Ventilator 08/03/20 23:00 111 27 110/66 (81) 99 08/03/20 22:45 109 25 30 08/03/20 22:00 115 26 110/67 (81) 99 08/03/20 21:00 125 33 131/79 (96) 99 08/03/20 20:55 124 133/76 08/03/20 20:15 124 08/03/20 20:00 30 08/03/20 20:00 Mechanical Ventilator 08/03/20 20:00 98.2 121 21 128/76 (93) 99 08/03/20 19:17 121 33 30 08/03/20 19:00 126 31 97/68 (78) 95 08/03/20 18:00 135 19 100/64 (76) 08/03/20 17:00 119 30 127/83 (98) 99 08/03/20 16:00 30 08/03/20 16:00 98.9 101 25 140/74 (96) 99 08/03/20 16:00 98 08/03/20 16:00 Mechanical Ventilator 08/03/20 15:30 110 28 30 08/03/20 15:00 99 23 113/68 (83) 99 08/03/20 14:00 103 27 115/66 (82) 94 08/03/20 13:00 103 20 131/74 (93) 100 08/03/20 12:00 104 08/03/20 12:00 30 08/03/20 12:00 Mechanical Ventilator 08/03/20 12:00 99.1 106 30 126/69 (88) 100 I&O Intake and Output 08/03/20 08/04/20 19:00 07:00 Intake Total 1730 ml 820 ml Output Total 975 ml 345 ml Balance 755 ml 475 ml Intake Free Water 50 ml 30 ml IV Total 1200 ml 450 ml Tube Feeding 480 ml 340 ml Output Urine Total 925 ml 345 ml Stool Total 50 ml Dressing: saturated Cardiovascular: RSR Respiratory: decreased breath sounds Abdomen: soft, non-tender, present bowel sounds Extremities: no tenderness, no cyanosis Laboratory Tests Test 08/03/20 23:00 08/04/20 04:45 Sodium Level 143 MMOL/L (136-145) 143 MMOL/L (136-145) Potassium Level 2.6 MMOL/L (3.5-5.1) *L 2.4 MMOL/L (3.5-5.1) *L Chloride Level 103 MMOL/L (98-107) 103 MMOL/L (98-107) Carbon Dioxide Level 24 MMOL/L (21-32) 23 MMOL/L (21-32) Anion Gap 16 mmol/L (5-15) H 18 mmol/L (5-15) H Blood Urea Nitrogen 200 mg/dL (7-18) #H 193 mg/dL (7-18) H Creatinine 2.8 MG/DL (0.55-1.30) H 2.8 MG/DL (0.55-1.30) H Estimat Glomerular Filtration Rate 22.8 mL/min (>60) 22.8 mL/min (>60) Glucose Level 202 MG/DL (74-106) H 149 MG/DL (74-106) H Calcium Level 7.8 MG/DL (8.5-10.1) L 7.8 MG/DL (8.5-10.1) L White Blood Count 12.3 K/UL (4.8-10.8) H Red Blood Count 2.48 M/UL (4.70-6.10) L Hemoglobin 7.4 G/DL (14.2-18.0) L Hematocrit 21.8 % (42.0-52.0) L Mean Corpuscular Volume 88 FL (80-99) Mean Corpuscular Hemoglobin 29.9 PG (27.0-31.0) Mean Corpuscular Hemoglobin Concent 34.1 G/DL (32.0-36.0) Red Cell Distribution Width 16.0 % (11.6-14.8) H Platelet Count 105 K/UL (150-450) L Mean Platelet Volume 12.8 FL (6.5-10.1) H Neutrophils (%) (Auto) % (45.0-75.0) Lymphocytes (%) (Auto) % (20.0-45.0) Monocytes (%) (Auto) % (1.0-10.0) Eosinophils (%) (Auto) % (0.0-3.0) Basophils (%) (Auto) % (0.0-2.0) Phosphorus Level 7.4 MG/DL (2.5-4.9) H Magnesium Level 2.2 MG/DL (1.8-2.4) Plan Problems: (1) Respiratory distress (2) Renal failure Assessment & Plan: plan HD line soon temp hd consent from daughter (3) Metabolic acidosis (4) NSTEMI (non-ST elevated myocardial infarction) (5) Sepsis Assessment & Plan: okay for tf iv fluids vent via trach weaning vent g tube okay decubitus eval done and local care provided labs noted acidosis plan HD cont abx as per ID will follow with recs thank you DAILY ESTIMATED NEEDS: Needs based on Critical care, wound, AUNDREA/ 62.7kg 22-28 kcals/kg 2284-2537 total kcals 0.8-1.25 (increase w/ renal fxn improvement) g protein/kg 50-78 g total protein 20-25 mL/kg 7561-4224 total fluid mLs NUTRITION DIAGNOSIS: Swallowing difficulty R/T respiratory failure as evidenced by trach/vent dep, PEG dep. CURRENT TF: NPO ENTERAL NUTRITION RECOMMENDATIONS: Nepro @ 35ml/hr x 24 hrs to provide 840ml, 1512kcal, 68g prot, 611ml free water * As medically appropriate, initiate Nepro, rec goal rate of 35ml/hr x 24 hrs * HOB over 30 degrees/ water flush per MD ADDITIONAL RECOMMENDATIONS: * Per SNF: HT=68" and RH=[id number] -> daily calibrated bedscale wt * Monitor renal fxn and lytes, ability to increase est prot needs * NISS w/ TF -> h/o DM * Probiotics for diarrhea * Wound healing: Add Nephrovite x 1, ZnSO4 220mg QD x 10 days Kenji BID w/ TF Rohit Brand Aug 04, 2020 11:45
--- NOTE | 2020-08-04 12:46 | Pulmonology Progress Note ---
Subjective ROS Limited/Unobtainable: Yes Interval Events: No new events Constitutional: Reports: no symptoms HEENT: Repors: no symptoms Respiratory: Reports: no symptoms Cardiovascular: Reports: no symptoms Gastrointestinal/Abdominal: Reports: no symptoms Allergies: Coded Allergies: No Known Allergies (Unverified , 08/01/20) Objective Last 24 Hour Vital Signs Date Time Temp Pulse Resp B/P (MAP) Pulse Ox O2 Delivery O2 Flow Rate FiO2 08/04/20 12:00 30 08/04/20 12:00 97.6 96 17 133/75 (94) 90 08/04/20 11:10 84 23 30 08/04/20 11:00 84 19 98/56 (70) 100 08/04/20 10:00 89 21 87/54 (65) 100 08/04/20 09:00 90 18 109/66 (80) 100 08/04/20 08:21 88 94/57 08/04/20 08:00 98.3 88 21 94/57 (69) 100 08/04/20 08:00 30 08/04/20 08:00 Mechanical Ventilator 08/04/20 07:55 87 08/04/20 07:25 92 25 30 08/04/20 07:00 92 23 96/63 (74) 100 08/04/20 06:00 94 16 111/69 (83) 100 08/04/20 05:00 93 21 114/69 (84) 100 08/04/20 04:00 Mechanical Ventilator 08/04/20 04:00 87 08/04/20 04:00 97.7 94 19 108/63 (78) 100 08/04/20 04:00 30 08/04/20 03:30 93 23 102/62 (75) 100 08/04/20 03:00 99 19 112/64 (80) 08/04/20 02:40 93 24 30 08/04/20 02:00 101 23 106/65 (79) 100 08/04/20 01:00 102 23 105/70 (82) 100 08/04/20 00:24 114 08/04/20 00:00 98.5 110 28 118/74 (89) 99 08/04/20 00:00 Mechanical Ventilator 08/03/20 23:00 111 27 110/66 (81) 99 08/03/20 22:45 109 25 30 08/03/20 22:00 115 26 110/67 (81) 99 08/03/20 21:00 125 33 131/79 (96) 99 08/03/20 20:55 124 133/76 08/03/20 20:15 124 08/03/20 20:00 30 08/03/20 20:00 Mechanical Ventilator 08/03/20 20:00 98.2 121 21 128/76 (93) 99 08/03/20 19:17 121 33 30 08/03/20 19:00 126 31 97/68 (78) 95 08/03/20 18:00 135 19 100/64 (76) 08/03/20 17:00 119 30 127/83 (98) 99 08/03/20 16:00 30 08/03/20 16:00 98.9 101 25 140/74 (96) 99 08/03/20 16:00 98 08/03/20 16:00 Mechanical Ventilator 08/03/20 15:30 110 28 30 08/03/20 15:00 99 23 113/68 (83) 99 08/03/20 14:00 103 27 115/66 (82) 94 08/03/20 13:00 103 20 131/74 (93) 100 Intake and Output 08/03/20 08/04/20 19:00 07:00 Intake Total 1730 ml 820 ml Output Total 975 ml 345 ml Balance 755 ml 475 ml Intake Free Water 50 ml 30 ml IV Total 1200 ml 450 ml Tube Feeding 480 ml 340 ml Output Urine Total 925 ml 345 ml Stool Total 50 ml General Appearance: WD/WN HEENT: normocephalic, status post trach Respiratory: chest wall non-tender Cardiovascular: normal peripheral pulses, normal rate Abdomen: normal bowel sounds Microbiology Date/Time Source Procedure Growth Status 08/02/20 05:00 Rectum VRE Culture - Final NO VANCOMYCIN RESISTANT ENTEROCOCCUS ... Complete 08/02/20 05:00 Rectum - Final NO CARBAPENEM-RESISTANT ENTEROBACTERI... Complete 08/02/20 05:00 Stool Clostridium difficile Toxin Assay - Final Complete 08/02/20 05:00 Nasal Nares MRSA Culture - Final NO METHICILLIN RESISTANT STAPH AUREUS... Complete 08/01/20 23:00 Straight Cath Urine Culture - Preliminary NO GROWTH Resulted 08/01/20 16:06 Nasal Nares - Final Complete 08/01/20 16:06 Nasal Nares - Final Complete 08/01/20 13:10 Nasopharynx SARS-CoV-2 RdRp Gene Assay - Final Complete 08/01/20 13:10 Blood Blood Culture - Preliminary NO GROWTH AFTER 48 HOURS Resulted 08/01/20 12:50 Blood Blood Culture - Preliminary NO GROWTH AFTER 48 HOURS Resulted Laboratory Tests 08/03/20 23:00: Sodium Level 143, Potassium Level 2.6*L, Chloride Level 103, Carbon Dioxide Level 24, Anion Gap 16H, Blood Urea Nitrogen 200#H, Creatinine 2.8H, Estimat Glomerular Filtration Rate 22.8, Glucose Level 202H, Calcium Level 7.8L 08/04/20 04:45: Sodium Level 143, Potassium Level 2.4*L, Chloride Level 103, Carbon Dioxide Level 23, Anion Gap 18H, Blood Urea Nitrogen 193H, Creatinine 2.8H, Estimat Glomerular Filtration Rate 22.8, Glucose Level 149H, Calcium Level 7.8L, White Blood Count 12.3H, Red Blood Count 2.48L, Hemoglobin 7.4L, Hematocrit 21.8L, Mean Corpuscular Volume 88, Mean Corpuscular Hemoglobin 29.9, Mean Corpuscular Hemoglobin Concent 34.1, Red Cell Distribution Width 16.0H, Platelet Count 105L, Mean Platelet Volume 12.8H, Neutrophils (%) (Auto) , Lymphocytes (%) (Auto) , Monocytes (%) (Auto) , Eosinophils (%) (Auto) , Basophils (%) (Auto) , Phosphorus Level 7.4H, Magnesium Level 2.2 08/04/20 12:05: Arterial Blood pH 7.559*H, Arterial Blood Partial Pressure CO2 24.6*L, Arterial Blood Partial Pressure O2 403.6H, Arterial Blood HCO3 21.5L, Arterial Blood Oxygen Saturation 98.4, Arterial Blood Base Excess -0.3, Russ Test Positive Current Medications Medications (Trade) Dose Ordered Sig/Maegan Route PRN Reason Start Time Stop Time Status Last Admin Dose Admin Acetaminophen (Tylenol) 650 mg Q4H PRN GT For Pain 08/02/20 15:45 09/01/20 15:44 08/03/20 02:13 Acetaminophen (Tylenol) 650 mg Q4H PRN GT Temp >100.5 08/02/20 15:45 09/01/20 15:44 Cefepime HCl 1 gm/ Dextrose 55 ml @ 110 mls/hr Q24H IVPB 08/01/20 21:00 08/08/20 20:59 08/03/20 20:55 Chlorhexidine Gluconate (Deisy-Hex 2%) 1 applic BIOTEC TOPIC 08/02/20 21:00 10/31/20 20:59 08/03/20 20:55 Dextrose 1,000 ml @ 0 mls/hr Q0M IV 08/02/20 09:15 09/01/20 09:14 Heparin Sodium (Porcine) (Heparin 5000 units/ml) 5,000 units EVERY 12 HOURS SUBQ 08/02/20 21:00 09/16/20 20:59 08/02/20 20:38 Linezolid (Zyvox) 600 mg EVERY 12 HOURS ORAL 08/02/20 21:00 08/07/20 20:59 08/04/20 08:20 Metoprolol Tartrate (Lopressor) 12.5 mg Q12HR GT 08/02/20 21:00 10/31/20 09:59 08/03/20 20:55 Metronidazole (Flagyl) 500 mg EVERY 8 HOURS ORAL 08/02/20 22:00 08/09/20 21:59 08/04/20 05:34 Pantoprazole (Protonix) 40 mg DAILY IVP 08/03/20 09:00 09/02/20 08:59 08/04/20 08:20 Potassium Chloride 100 ml @ 100 mls/hr Q1H IVPB 08/04/20 11:00 08/04/20 12:59 08/04/20 12:25 Sevelamer Carbonate (Renvela) 800 mg THREE TIMES A DAY NG 08/04/20 13:00 11/02/20 12:59 Assessment/Plan Assessment/Plan IMPRESSION: 1. Chronic respiratory failure. Chronic tracheostomy 2. Metabolic acidosis. Will continue HCO3 drip 3. Renal failure. HD per renal 4. Leukocytosis. 5. Sepsis. Source unclear; C dif negative; CXR clear DISCUSSION: Agree with broad spectrum antibiotics. I will continue AC mode. Currently FiO2 40%; PEEP 5 Continue bicarbonate supplementation. Noted plans for HD Hemodynamically stable I will follow carefully. Jeromy Ryan Omar Syed MD Aug 04, 2020 12:46
[2020-08-04] MEDS: Renvela 800mg Pkt NG SCH ×2 (13:00→18:00)
--- NOTE | 2020-08-04 14:54 | General Progress Note ---
Subjective Date patient seen: Aug 04, 2020 ROS Limited/Unobtainable: Yes Allergies: Coded Allergies: No Known Allergies (Unverified , 08/01/20) Subjective HD line placed yesterday and underwent dialysis. No change in mental status. Oxygenation stable. Not verbalizing, poor mental status. Objective Last 24 Hour Vital Signs Date Time Temp Pulse Resp B/P (MAP) Pulse Ox O2 Delivery O2 Flow Rate FiO2 08/04/20 14:00 95 18 140/74 (96) 97 08/04/20 13:00 95 17 125/64 (84) 100 08/04/20 12:00 30 08/04/20 12:00 Mechanical Ventilator 08/04/20 12:00 97.6 96 17 133/75 (94) 90 08/04/20 11:33 94 08/04/20 11:10 84 23 30 08/04/20 11:00 84 19 98/56 (70) 100 08/04/20 10:00 89 21 87/54 (65) 100 08/04/20 09:00 90 18 109/66 (80) 100 08/04/20 08:21 88 94/57 08/04/20 08:00 98.3 88 21 94/57 (69) 100 08/04/20 08:00 30 08/04/20 08:00 Mechanical Ventilator 08/04/20 07:55 87 08/04/20 07:25 92 25 30 08/04/20 07:00 92 23 96/63 (74) 100 08/04/20 06:00 94 16 111/69 (83) 100 08/04/20 05:00 93 21 114/69 (84) 100 08/04/20 04:00 Mechanical Ventilator 08/04/20 04:00 87 08/04/20 04:00 97.7 94 19 108/63 (78) 100 08/04/20 04:00 30 08/04/20 03:30 93 23 102/62 (75) 100 08/04/20 03:00 99 19 112/64 (80) 08/04/20 02:40 93 24 30 08/04/20 02:00 101 23 106/65 (79) 100 08/04/20 01:00 102 23 105/70 (82) 100 08/04/20 00:24 114 08/04/20 00:00 98.5 110 28 118/74 (89) 99 08/04/20 00:00 Mechanical Ventilator 08/03/20 23:00 111 27 110/66 (81) 99 08/03/20 22:45 109 25 30 08/03/20 22:00 115 26 110/67 (81) 99 08/03/20 21:00 125 33 131/79 (96) 99 08/03/20 20:55 124 133/76 08/03/20 20:15 124 08/03/20 20:00 30 08/03/20 20:00 Mechanical Ventilator 08/03/20 20:00 98.2 121 21 128/76 (93) 99 08/03/20 19:17 121 33 30 08/03/20 19:00 126 31 97/68 (78) 95 08/03/20 18:00 135 19 100/64 (76) 08/03/20 17:00 119 30 127/83 (98) 99 08/03/20 16:00 30 08/03/20 16:00 98.9 101 25 140/74 (96) 99 08/03/20 16:00 98 08/03/20 16:00 Mechanical Ventilator 08/03/20 15:30 110 28 30 08/03/20 15:00 99 23 113/68 (83) 99 Intake and Output 08/03/20 08/04/20 19:00 07:00 Intake Total 1730 ml 870 ml Output Total 975 ml 345 ml Balance 755 ml 525 ml Intake Free Water 50 ml 30 ml IV Total 1200 ml 500 ml Tube Feeding 480 ml 340 ml Output Urine Total 925 ml 345 ml Stool Total 50 ml Laboratory Tests 08/03/20 23:00: Sodium Level 143, Potassium Level 2.6*L, Chloride Level 103, Carbon Dioxide Level 24, Anion Gap 16H, Blood Urea Nitrogen 200#H, Creatinine 2.8H, Estimat Glomerular Filtration Rate 22.8, Glucose Level 202H, Calcium Level 7.8L 08/04/20 04:45: Sodium Level 143, Potassium Level 2.4*L, Chloride Level 103, Carbon Dioxide Level 23, Anion Gap 18H, Blood Urea Nitrogen 193H, Creatinine 2.8H, Estimat Felicitas merular Filtration Rate 22.8, Glucose Level 149H, Calcium Level 7.8L, White Blood Count 12.3H, Red Blood Count 2.48L, Hemoglobin 7.4L, Hematocrit 21.8L, Mean Corpuscular Volume 88, Mean Corpuscular Hemoglobin 29.9, Mean Corpuscular Hemoglobin Concent 34.1, Red Cell Distribution Width 16.0H, Platelet Count 105L, Mean Platelet Volume 12.8H, Neutrophils (%) (Auto) , Lymphocytes (%) (Auto) , Monocytes (%) (Auto) , Eosinophils (%) (Auto) , Basophils (%) (Auto) , Phosphorus Level 7.4H, Magnesium Level 2.2 08/04/20 12:05: Arterial Blood pH 7.559*H, Arterial Blood Partial Pressure CO2 24.6*L, Arterial Blood Partial Pressure O2 403.6H, Arterial Blood HCO3 21.5L, Arterial Blood Oxygen Saturation 98.4, Arterial Blood Base Excess -0.3, Russ Test Positive Height (Feet): 5 Height (Inches): 7.00 Weight (Pounds): 175 Objective General Appearance: lethargic, does not open eyes to voice Lines, tubes and drains: trach, HD line in place HEENT: normocephalic, atraumatic, mucous membranes moist Neck: normal alignment Respiratory/Chest: rhonchi - bilaterally Cardiovascular/Chest: normal peripheral pulses, regular rhythm Abdomen: soft, no mass, feeding tube Extremities: no edema, no cyanosis Skin Exam: normal pigmentation, warm/dry Neurologic: unresponsiveness Assessment/Plan Assessment/Plan: #Sepsis - unclear source, cultures NTD. WBC improving. #Metabolic acidosis - likely from severe uremia #NSTEMI - may be demand ischemia in sepsis #Acute kidney injury - may be sepsis related. - s/p CTX, zosyn, IVF in ED - avoid nephrotoxic drugs - HD per nephro - cefepime - low threshold to broaden antibiotics - f/u cultures - NTD - IVF - trend troponin - ID consult Dr. Stone - Nephro consult Dr. Sherman - Cardiology consult Dr. Mari #Acute on chronic respiratory failure #s/p tracheostomy #PEG status - Ventilator dependent - In ICU for ventilator - check ABG - CXR clear, low suspicion for pneumonia - Covid negative - pulmonary consult Dr. Nunez - tube feed - nutrition consult #Hx of thalamic infarct #Uremic encephalopathy? - nonverbal, lethargic currently - neurology consult Dr. Hale #Diabetes - ISS Fluids: IVF Diet: tube feed DVT ppx: heparin Code: chief operator hydroformer of my involvement, the patient's condition was critical with high potential for and/or physiologic deterioration secondary to sepsis and acute hypoxic respiratory failure as delineated in the note above. On the above date of service, I spent a total of 38 minutes in the ICU evaluating, managing, and providing critical care services to this patient, including time spent documenting these activities, counseling patient/family, and coordinating care. Critical care services performed include: -Telemetry review -Hemodynamic measurement interpretation -Laboratory data review and interpretation -Vent setting reviewed, management -Discussion of patient's care with medical team, and consultants -Decision to obtain further radiologic evaluation, after consideration of the risk/benefit ratio -Review of most recent microbiology results assessment and modification of antimicrobial coverage -Discussion of patient's CODE STATUS and further advancement towards the ultimate goals of care. Plan outlined above discussed with patient/family, SKILLS AUDITOR, ICU team, and involved physician/consultants. Davidson Guzmán M.D. Aug 04, 2020 14:54
--- NOTE | 2020-08-04 20:53 | Neurology Progress Note ---
Interim History Interim History ROS Limited/Unobtainable: Yes Interim History sp HD, no major change Objective Physical Exam Last Vital Signs Date Time Temp Pulse Resp B/P (MAP) Pulse Ox O2 Delivery O2 Flow Rate FiO2 08/04/20 19:20 120 27 30 08/04/20 19:00 141/81 (101) 99 08/04/20 16:00 Mechanical Ventilator 08/04/20 16:00 98.1 Laboratory Tests Test 08/03/20 23:00 08/04/20 04:45 08/04/20 12:05 Sodium Level 143 MMOL/L (136-145) 143 MMOL/L (136-145) Potassium Level 2.6 MMOL/L (3.5-5.1) *L 2.4 MMOL/L (3.5-5.1) *L Chloride Level 103 MMOL/L (98-107) 103 MMOL/L (98-107) Carbon Dioxide Level 24 MMOL/L (21-32) 23 MMOL/L (21-32) Anion Gap 16 mmol/L (5-15) H 18 mmol/L (5-15) H Blood Urea Nitrogen 200 mg/dL (7-18) #H 193 mg/dL (7-18) H Creatinine 2.8 MG/DL (0.55-1.30) H 2.8 MG/DL (0.55-1.30) H Estimat Glomerular Filtration Rate 22.8 mL/min (>60) 22.8 mL/min (>60) Glucose Level 202 MG/DL (74-106) H 149 MG/DL (74-106) H Calcium Level 7.8 MG/DL (8.5-10.1) L 7.8 MG/DL (8.5-10.1) L White Blood Count 12.3 K/UL (4.8-10.8) H Red Blood Count 2.48 M/UL (4.70-6.10) L Hemoglobin 7.4 G/DL (14.2-18.0) L Hematocrit 21.8 % (42.0-52.0) L Mean Corpuscular Volume 88 FL (80-99) Mean Corpuscular Hemoglobin 29.9 PG (27.0-31.0) Mean Corpuscular Hemoglobin Concent 34.1 G/DL (32.0-36.0) Red Cell Distribution Width 16.0 % (11.6-14.8) H Platelet Count 105 K/UL (150-450) L Mean Platelet Volume 12.8 FL (6.5-10.1) H Neutrophils (%) (Auto) % (45.0-75.0) Lymphocytes (%) (Auto) % (20.0-45.0) Monocytes (%) (Auto) % (1.0-10.0) Eosinophils (%) (Auto) % (0.0-3.0) Basophils (%) (Auto) % (0.0-2.0) Phosphorus Level 7.4 MG/DL (2.5-4.9) H Magnesium Level 2.2 MG/DL (1.8-2.4) Arterial Blood pH 7.559 (7.350-7.450) Arterial Blood Partial Pressure CO2 24.6 mmHg (35.0-45.0) *L Arterial Blood Partial Pressure O2 403.6 mmHg (75.0-100.0) H Arterial Blood HCO3 21.5 mmol/L (22.0-26.0) L Arterial Blood Oxygen Saturation 98.4 % (95-100) Arterial Blood Base Excess -0.3 (-2-2) Russ Test Positive Neurologic Exam Objective trach on vet tachy grimaces to pain cc 35 min Impression/Recommendations Problems: (1) Respiratory distress (2) Renal failure (3) Metabolic acidosis (4) NSTEMI (non-ST elevated myocardial infarction) (5) Sepsis Diagnostic Impression Encephalopathy, likely metabolic sepsis hx of left thalamic hemorrhage likely from htn icu level map > 65 monitor mental status cont atb fu cultures ok for heparin SC given ich is chronic Pedro Hale MD Aug 04, 2020 20:53
[2020-08-04] MEDS: Cefepime HCl 1 GM in D5W 55 ML IVPB SCH (21:14)
[2020-08-04] MEDS: Dyna-Hex 2% Top Sol 2oz TOPIC SCH (21:14)
[2020-08-05] VITALS: BP 135/82
[2020-08-05 04:00] VITALS: BP 114/70
[2020-08-05] MEDS: metroNIDAZOLE 500mg tab ORAL SCH ×3 (05:38→22:47)
[2020-08-05 08:00] VITALS: BP 99/62
[2020-08-05 08:28] LABS: CALCIUM 7.9 MG/DL (8.5-10.1); CREATININE 1.7 MG/DL (0.55-1.30); PHOSPHORUS 6.5 MG/DL (2.5-4.9)
[2020-08-05 08:30] LABS: POTASSIUM 2.1 MMOL/L (3.5-5.1)
[2020-08-05 09:36] LABS: BASOPHILS % (AUTO) 0.7 % (0.0-2.0); HEMATOCRIT 25.7 % (42.0-52.0); HEMOGLOBIN 9.4 G/DL (14.2-18.0); LYMPHOCYTES % (AUTO) 9.9 % (20.0-45.0); MEAN CORPUSCULAR VOLUME 83 FL (80-99); MONOCYTES % (AUTO) 5.9 % (1.0-10.0); NEUTROPHILS % (AUTO) 83.4 % (45.0-75.0); PLATELET COUNT 105 K/UL (150-450); RED BLOOD COUNT 3.09 M/UL (4.70-6.10); RED CELL DISTRIBUTION WIDTH 15.6 % (11.6-14.8); WHITE BLOOD COUNT 11.3 K/UL (4.8-10.8)
[2020-08-05] MEDS: Pantoprazole Inj IVP SCH (10:09)
[2020-08-05] MEDS: Renvela 800mg Pkt NG SCH ×3 (10:09→17:29)
[2020-08-05] MEDS: Metoprolol Tartrate 12.5mg TAB GT SCH ×2 (10:11→21:00)
[2020-08-05] MEDS: Heparin 5000 units/ml inj SUBQ SCH ×2 (10:13→22:52)
--- NOTE | 2020-08-05 11:22 | Nephrology Progress Note ---
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 per daughter #Uremia #Anemia #Pneumonia #sepsis - per discussion with daughter - HD is in line with goals of care - monitor labs - gently replete K - DC bicarb drip - add sevelamer - monitor ABG - antibiotics per ID - avoid nephrotoxins - monitor UOP - monitor electrolytes time spent 65 min Subjective Subjective s/p HD yesterday Objective Objective Last 24 Hour Vital Signs Date Time Temp Pulse Resp B/P (MAP) Pulse Ox O2 Delivery O2 Flow Rate FiO2 08/05/20 10:11 85 99/62 08/05/20 08:00 84 08/05/20 07:14 108 21 30 08/05/20 04:00 Mechanical Ventilator 08/05/20 04:00 30 08/05/20 04:00 97.7 80 17 114/70 (85) 100 08/05/20 04:00 83 08/05/20 02:24 104 19 30 08/05/20 00:00 97.5 96 22 135/82 (99) 100 08/05/20 00:00 Mechanical Ventilator 08/04/20 23:57 98 08/04/20 23:00 101 22 156/88 (110) 98 08/04/20 22:48 117 24 30 08/04/20 22:00 102 22 133/84 (100) 98 08/04/20 21:15 108 136/84 08/04/20 21:00 115 20 136/84 (101) 99 08/04/20 20:00 110 08/04/20 20:00 98.2 111 24 123/81 (95) 99 08/04/20 20:00 30 08/04/20 20:00 Mechanical Ventilator 08/04/20 19:20 120 27 30 08/04/20 19:00 112 29 141/81 (101) 99 08/04/20 18:00 94 23 154/79 (104) 99 08/04/20 17:00 89 18 137/85 (102) 96 08/04/20 16:00 Mechanical Ventilator 08/04/20 16:00 30 08/04/20 16:00 82 08/04/20 16:00 98.1 88 21 106/70 (82) 96 08/04/20 15:10 92 25 30 08/04/20 15:00 91 20 144/73 (96) 96 08/04/20 14:00 95 18 140/74 (96) 97 08/04/20 13:00 95 17 125/64 (84) 100 08/04/20 12:00 30 08/04/20 12:00 Mechanical Ventilator 08/04/20 12:00 97.6 96 17 133/75 (94) 90 08/04/20 11:33 94 Intake and Output 08/04/20 08/05/20 19:00 07:00 Intake Total 350 ml Output Total 660 ml 765 ml Balance -310 ml -765 ml Intake Free Water 50 ml IV Total 150 ml Tube Feeding 150 ml Output Urine Total 360 ml 510 ml Stool Total 300 ml 255 ml Laboratory Tests 08/04/20 12:05: Arterial Blood pH 7.559*H, Arterial Blood Partial Pressure CO2 24.6*L, Arterial Blood Partial Pressure O2 403.6H, Arterial Blood HCO3 21.5L, Arterial Blood Oxy gen Saturation 98.4, Arterial Blood Base Excess -0.3, Russ Test Positive 08/05/20 07:20: Sodium Level 140, Potassium Level 2.1*L, Chloride Level 100, Carbon Dioxide Level 28, Anion Gap 11, Blood Urea Nitrogen 100#H, Creatinine 1.7H, Estimat Glomerular Filtration Rate 40.5, Glucose Level 126H, Calcium Level 7.9L, Phosphorus Level 6.5H, Magnesium Level 1.9 08/05/20 09:15: White Blood Count 11.3H, Red Blood Count 3.09L, Hemoglobin 9.4L, Hematocrit 25.7L, Mean Corpuscular Volume 83, Mean Corpuscular Hemoglobin 30.4, Mean Corpuscular Hemoglobin Concent 36.5H, Red Cell Distribution Width 15.6H, Platelet Count 105L, Mean Platelet Volume 14.2H, Neutrophils (%) (Auto) 83.4H, Lymphocytes (%) (Auto) 9.9L, Monocytes (%) (Auto) 5.9, Eosinophils (%) (Auto) 0.0, Basophils (%) (Auto) 0.7 Height (Feet): 5 Height (Inches): 7.00 Weight (Pounds): 175 Gladys Sherman M.D. Aug 05, 2020 11:22
--- NOTE | 2020-08-05 11:51 | Pulmonology Progress Note ---
Subjective ROS Limited/Unobtainable: Yes Interval Events: No new events Constitutional: Reports: no symptoms HEENT: Repors: no symptoms Respiratory: Reports: no symptoms Cardiovascular: Reports: no symptoms Gastrointestinal/Abdominal: Reports: no symptoms Allergies: Coded Allergies: No Known Allergies (Unverified , 08/01/20) Objective Last 24 Hour Vital Signs Date Time Temp Pulse Resp B/P (MAP) Pulse Ox O2 Delivery O2 Flow Rate FiO2 08/05/20 10:11 85 99/62 08/05/20 08:00 84 08/05/20 07:14 108 21 30 08/05/20 04:00 Mechanical Ventilator 08/05/20 04:00 30 08/05/20 04:00 97.7 80 17 114/70 (85) 100 08/05/20 04:00 83 08/05/20 02:24 104 19 30 08/05/20 00:00 97.5 96 22 135/82 (99) 100 08/05/20 00:00 Mechanical Ventilator 08/04/20 23:57 98 08/04/20 23:00 101 22 156/88 (110) 98 08/04/20 22:48 117 24 30 08/04/20 22:00 102 22 133/84 (100) 98 08/04/20 21:15 108 136/84 08/04/20 21:00 115 20 136/84 (101) 99 08/04/20 20:00 110 08/04/20 20:00 98.2 111 24 123/81 (95) 99 08/04/20 20:00 30 08/04/20 20:00 Mechanical Ventilator 08/04/20 19:20 120 27 30 08/04/20 19:00 112 29 141/81 (101) 99 08/04/20 18:00 94 23 154/79 (104) 99 08/04/20 17:00 89 18 137/85 (102) 96 08/04/20 16:00 Mechanical Ventilator 08/04/20 16:00 30 08/04/20 16:00 82 08/04/20 16:00 98.1 88 21 106/70 (82) 96 08/04/20 15:10 92 25 30 08/04/20 15:00 91 20 144/73 (96) 96 08/04/20 14:00 95 18 140/74 (96) 97 08/04/20 13:00 95 17 125/64 (84) 100 08/04/20 12:00 30 08/04/20 12:00 Mechanical Ventilator 08/04/20 12:00 97.6 96 17 133/75 (94) 90 Intake and Output 08/04/20 08/05/20 19:00 07:00 Intake Total 350 ml Output Total 660 ml 765 ml Balance -310 ml -765 ml Intake Free Water 50 ml IV Total 150 ml Tube Feeding 150 ml Output Urine Total 360 ml 510 ml Stool Total 300 ml 255 ml General Appearance: WD/WN HEENT: normocephalic, status post trach Respiratory: chest wall non-tender Cardiovascular: normal peripheral pulses, normal rate Abdomen: normal bowel sounds Laboratory Tests 08/04/20 12:05: Arterial Blood pH 7.559*H, Arterial Blood Partial Pressure CO2 24.6*L, Arterial Blood Partial Pressure O2 403.6H, Arterial Blood HCO3 21.5L, Arterial Blood Oxygen Saturation 98.4, Arterial Blood Base Excess -0.3, Russ Test Positive 08/05/20 07:20: Sodium Level 140, Potassium Level 2.1*L, Chloride Level 100, Carbon Dioxide Level 28, Anion Gap 11, Blood Urea Nitrogen 100#H, Creatinine 1.7H, Estimat Glomerular Filtration Rate 40.5, Glucose Level 126H, Calcium Level 7.9L, Phosphorus Level 6.5H, Magnesium Level 1.9 08/05/20 09:15: White Blood Count 11.3H, Red Blood Count 3.09L, Hemoglobin 9.4L, Hematocrit 25.7L, Mean Corpuscular Volume 83, Mean Corpuscular Hemoglobin 30.4, Mean Corpuscular Hemoglobin Concent 36.5H, Red Cell Distribution Width 15.6H, Platelet Count 105L, Mean Platelet Volume 14.2H, Neutrophils (%) (Auto) 83.4H, Lymphocytes (%) (Auto) 9.9L, Monocytes (%) (Auto) 5.9, Eosinophils (%) (Auto) 0.0, Basophils (%) (Auto) 0.7 Current Medications Medications (Trade) Dose Ordered Sig/Maegan Route PRN Reason Start Time Stop Time Status Last Admin Dose Admin Acetaminophen (Tylenol) 650 mg Q4H PRN GT For Pain 08/02/20 15:45 09/01/20 15:44 08/03/20 02:13 Acetaminophen (Tylenol) 650 mg Q4H PRN GT Temp >100.5 08/02/20 15:45 09/01/20 15:44 Calcium Acetate (Phoslo) 1,334 mg TIAC ORAL 08/05/20 11:30 11/03/20 11:29 Cefepime HCl 1 gm/ Dextrose 55 ml @ 110 mls/hr Q24H IVPB 08/01/20 21:00 08/08/20 20:59 08/04/20 21:14 Chlorhexidine Gluconate (Deisy-Hex 2%) 1 applic BIOTEC TOPIC 08/02/20 21:00 10/31/20 20:59 08/04/20 21:14 Dextrose 1,000 ml @ 0 mls/hr Q0M IV 08/02/20 09:15 09/01/20 09:14 Heparin Sodium (Porcine) (Heparin 5000 units/ml) 5,000 units EVERY 12 HOURS SUBQ 08/02/20 21:00 09/16/20 20:59 08/05/20 10:13 Linezolid (Zyvox) 600 mg EVERY 12 HOURS ORAL 08/02/20 21:00 08/07/20 20:59 08/05/20 10:11 Metoprolol Tartrate (Lopressor) 12.5 mg Q12HR GT 08/02/20 21:00 10/31/20 09:59 08/05/20 10:11 Metronidazole (Flagyl) 500 mg EVERY 8 HOURS ORAL 08/02/20 22:00 08/09/20 21:59 08/05/20 05:38 Pantoprazole (Protonix) 40 mg DAILY IVP 08/03/20 09:00 09/02/20 08:59 08/05/20 10:09 Potassium Chloride 100 ml @ 100 mls/hr Q1H IVPB 08/05/20 12:00 08/05/20 14:59 Potassium Chloride 100 ml @ 100 mls/hr Q1H IVPB 08/05/20 15:00 08/05/20 16:59 Sevelamer Carbonate (Renvela) 800 mg THREE TIMES A DAY NG 08/04/20 13:00 11/02/20 12:59 08/05/20 10:09 Assessment/Plan Assessment/Plan IMPRESSION: 1. Chronic respiratory failure. Chronic tracheostomy 2. Metabolic acidosis. On hemodialysis 3. Renal failure. HD per renal 4. Leukocytosis. 5. Sepsis. Source unclear; C dif negative; CXR clear DISCUSSION: Agree with broad spectrum antibiotics. I will continue AC mode. Currently FiO2 40%; PEEP 5 Discontinued bicarbonate supplementation. Noted plans for HD again today. Potassium supplementation per nephrology Hemodynamically stable I will follow carefully. Jack Nunez M.D. Jack Nunez MD Aug 05, 2020 11:51
[2020-08-05 12:00] VITALS: BP 132/95
--- NOTE | 2020-08-05 13:53 | Surgery Progress Note ---
Surgery Progress Note Subjective Procedure Performed right femoral temporary hemodialysis catheter insertion Symptoms: improved, tolerating diet, passing flatus Objective Last 24 Hour Vital Signs Date Time Temp Pulse Resp B/P (MAP) Pulse Ox O2 Delivery O2 Flow Rate FiO2 08/05/20 10:11 85 99/62 08/05/20 08:00 84 08/05/20 07:14 108 21 30 08/05/20 04:00 Mechanical Ventilator 08/05/20 04:00 30 08/05/20 04:00 97.7 80 17 114/70 (85) 100 08/05/20 04:00 83 08/05/20 02:24 104 19 30 08/05/20 00:00 97.5 96 22 135/82 (99) 100 08/05/20 00:00 Mechanical Ventilator 08/04/20 23:57 98 08/04/20 23:00 101 22 156/88 (110) 98 08/04/20 22:48 117 24 30 08/04/20 22:00 102 22 133/84 (100) 98 08/04/20 21:15 108 136/84 08/04/20 21:00 115 20 136/84 (101) 99 08/04/20 20:00 110 08/04/20 20:00 98.2 111 24 123/81 (95) 99 08/04/20 20:00 30 08/04/20 20:00 Mechanical Ventilator 08/04/20 19:20 120 27 30 08/04/20 19:00 112 29 141/81 (101) 99 08/04/20 18:00 94 23 154/79 (104) 99 08/04/20 17:00 89 18 137/85 (102) 96 08/04/20 16:00 Mechanical Ventilator 08/04/20 16:00 30 08/04/20 16:00 82 08/04/20 16:00 98.1 88 21 106/70 (82) 96 08/04/20 15:10 92 25 30 08/04/20 15:00 91 20 144/73 (96) 96 08/04/20 14:00 95 18 140/74 (96) 97 I&O Intake and Output 08/04/20 08/05/20 19:00 07:00 Intake Total 350 ml Output Total 660 ml 765 ml Balance -310 ml -765 ml Intake Free Water 50 ml IV Total 150 ml Tube Feeding 150 ml Output Urine Total 360 ml 510 ml Stool Total 300 ml 255 ml Dressing: saturated Cardiovascular: RSR Respiratory: clear Abdomen: soft, non-tender, present bowel sounds Extremities: no tenderness, no cyanosis Laboratory Tests Test 08/05/20 07:20 08/05/20 09:15 Sodium Level 140 MMOL/L (136-145) Potassium Level 2.1 MMOL/L (3.5-5.1) *L Chloride Level 100 MMOL/L (98-107) Carbon Dioxide Level 28 MMOL/L (21-32) Anion Gap 11 mmol/L (5-15) Blood Urea Nitrogen 100 mg/dL (7-18) #H Creatinine 1.7 MG/DL (0.55-1.30) H Estimat Glomerular Filtration Rate 40.5 mL/min (>60) Glucose Level 126 MG/DL (74-106) H Calcium Level 7.9 MG/DL (8.5-10.1) L Phosphorus Level 6.5 MG/DL (2.5-4.9) H Magnesium Level 1.9 MG/DL (1.8-2.4) White Blood Count 11.3 K/UL (4.8-10.8) H Red Blood Count 3.09 M/UL (4.70-6.10) L Hemoglobin 9.4 G/DL (14.2-18.0) L Hematocrit 25.7 % (42.0-52.0) L Mean Corpuscular Volume 83 FL (80-99) Mean Corpuscular Hemoglobin 30.4 PG (27.0-31.0) Mean Corpuscular Hemoglobin Concent 36.5 G/DL (32.0-36.0) H Red Cell Distribution Width 15.6 % (11.6-14.8) H Platelet Count 105 K/UL (150-450) L Mean Platelet Volume 14.2 FL (6.5-10.1) H Neutrophils (%) (Auto) 83.4 % (45.0-75.0) H Lymphocytes (%) (Auto) 9.9 % (20.0-45.0) L Monocytes (%) (Auto) 5.9 % (1.0-10.0) Eosinophils (%) (Auto) 0.0 % (0.0-3.0) Basophils (%) (Auto) 0.7 % (0.0-2.0) Plan Problems: (1) Respiratory distress (2) Renal failure Assessment & Plan: plan HD line soon temp hd consent from daughter (3) Metabolic acidosis (4) NSTEMI (non-ST elevated myocardial infarction) (5) Sepsis Assessment & Plan: okay for tf iv fluids vent via trach weaning vent g tube okay decubitus eval done and local care provided labs noted acidosis plan HD cont abx as per ID will follow with recs thank you DAILY ESTIMATED NEEDS: Needs based on Critical care, wound, AUNDREA/ 62.7kg 22-28 kcals/kg 8360-1906 total kcals 0.8-1.25 (increase w/ renal fxn improvement) g protein/kg 50-78 g total protein 20-25 mL/kg 7192-2775 total fluid mLs NUTRITION DIAGNOSIS: Swallowing difficulty R/T respiratory failure as evidenced by trach/vent dep, PEG dep. CURRENT TF: NPO ENTERAL NUTRITION RECOMMENDATIONS: Nepro @ 35ml/hr x 24 hrs to provide 840ml, 1512kcal, 68g prot, 611ml free water * As medically appropriate, initiate Nepro, rec goal rate of 35ml/hr x 24 hrs * HOB over 30 degrees/ water flush per MD ADDITIONAL RECOMMENDATIONS: * Per SNF: HT=68" and VO=690vpg -> daily calibrated bedscale wt * Monitor renal fxn and lytes, ability to increase est prot needs * NISS w/ TF -> h/o DM * Probiotics for diarrhea * Wound healing: Add Nephrovite x 1, ZnSO4 220mg QD x 10 days Kenji BID w/ TF Rohit Brand Aug 05, 2020 13:53
[2020-08-05 16:00] VITALS: BP 149/83
[2020-08-05] MEDS: Metoclopramide 10mg/2ml Inj IVP PRN (17:29)
--- NOTE | 2020-08-05 18:56 | General Progress Note ---
Subjective Date patient seen: Aug 05, 2020 ROS Limited/Unobtainable: Yes Allergies: Coded Allergies: No Known Allergies (Unverified , 08/01/20) Subjective Transferred out of ICU. K low this morning, repleting today. Oxygenation stable. Not verbalizing, poor mental status. Objective Last 24 Hour Vital Signs Date Time Temp Pulse Resp B/P (MAP) Pulse Ox O2 Delivery O2 Flow Rate FiO2 08/05/20 16:00 Mechanical Ventilator 08/05/20 13:30 78 16 30 08/05/20 12:00 Mechanical Ventilator 08/05/20 10:11 85 99/62 08/05/20 08:00 84 08/05/20 08:00 Mechanical Ventilator 08/05/20 07:14 108 21 30 08/05/20 04:00 Mechanical Ventilator 08/05/20 04:00 30 08/05/20 04:00 97.7 80 17 114/70 (85) 100 08/05/20 04:00 83 08/05/20 02:24 104 19 30 08/05/20 00:00 97.5 96 22 135/82 (99) 100 08/05/20 00:00 Mechanical Ventilator 08/04/20 23:57 98 08/04/20 23:00 101 22 156/88 (110) 98 08/04/20 22:48 117 24 30 08/04/20 22:00 102 22 133/84 (100) 98 08/04/20 21:15 108 136/84 08/04/20 21:00 115 20 136/84 (101) 99 08/04/20 20:00 110 08/04/20 20:00 98.2 111 24 123/81 (95) 99 08/04/20 20:00 30 08/04/20 20:00 Mechanical Ventilator 08/04/20 19:20 120 27 30 08/04/20 19:00 112 29 141/81 (101) 99 Intake and Output 08/04/20 08/05/20 19:00 07:00 Intake Total 350 ml Output Total 660 ml 765 ml Balance -310 ml -765 ml Intake Free Water 50 ml IV Total 150 ml Tube Feeding 150 ml Output Urine Total 360 ml 510 ml Stool Total 300 ml 255 ml Laboratory Tests 08/05/20 07:20: Sodium Level 140, Potassium Level 2.1*L, Chloride Level 100, Carbon Dioxide Level 28, Anion Gap 11, Blood Urea Nitrogen 100#H, Creatinine 1.7H, Estimat Glomerular Filtration Rate 40.5, Glucose Level 126H, Calcium Level 7.9L, Phosphorus Level 6.5H, Magnesium Level 1.9 08/05/20 09:15: White Blood Count 11.3H, Red Blood Count 3.09L, Hemoglobin 9.4L, Hematocrit 25.7L, Mean Corpuscular Volume 83, Mean Corpuscular Hemoglobin 30.4, Mean Corpuscular Hemoglobin Concent 36.5H, Red Cell Distribution Width 15.6H, Platelet Count 105L, Mean Platelet Volume 14.2H, Neutrophils (%) (Auto) 83.4H, Lymphocytes (%) (Auto) 9.9L, Monocytes (%) (Auto) 5.9, Eosinophils (%) (Auto) 0.0, Basophils (%) (Auto) 0.7 Height (Feet): 5 Height (Inches): 7.00 Weight (Pounds): 175 Objective General Appearance: lethargic, does not open eyes to voice Lines, tubes and drains: trach, HD line in place HEENT: normocephalic, atraumatic, mucous membranes moist Neck: normal alignment Respiratory/Chest: rhonchi - bilaterally Cardiovascular/Chest: normal peripheral pulses, regular rhythm Abdomen: soft, no mass, feeding tube Extremities: no edema, no cyanosis Skin Exam: normal pigmentation, warm/dry Neurologic: unresponsiveness Assessment/Plan Assessment/Plan: #Sepsis - unclear source, cultures NTD. WBC still improving. #Metabolic acidosis - likely from severe uremia - improving #NSTEMI - may be demand ischemia in sepsis #Acute kidney injury - may be sepsis related. - s/p CTX, zosyn, IVF in ED - avoid nephrotoxic drugs - HD per nephro - cefepime - low threshold to broaden antibiotics - f/u cultures - NTD - IVF - trend troponin - ID consult Dr. Stone - Nephro consult Dr. Sherman - Cardiology consult Dr. Mari #Acute on chronic respiratory failure #s/p tracheostomy #PEG status - Ventilator dependent - transferred out of ICU 08/04/2020 - check ABG - CXR clear, low suspicion for pneumonia - Covid negative - pulmonary consult Dr. Nunez - tube feed - nutrition consult #Hx of thalamic infarct #Uremic encephalopathy? - nonverbal, lethargic currently - neurology consult Dr. Hale #Diabetes - ISS Fluids: IVF Diet: tube feed DVT ppx: heparin Code: FULL I spent 35 minutes on this patient's case, and 20 minutes were dedicated to counseling and/or care coordination. Discussed with cardiology and pulmonology and ID consultants. Time of note may not reflect time of encounter Daivdson Guzmán M.D. Aug 05, 2020 18:56
--- NOTE | 2020-08-05 19:10 | Neurology Progress Note ---
Interim History Interim History ROS Limited/Unobtainable: Yes Interim History remains lethargic Objective Physical Exam Last Vital Signs Date Time Temp Pulse Resp B/P (MAP) Pulse Ox O2 Delivery O2 Flow Rate FiO2 08/05/20 16:00 Mechanical Ventilator 08/05/20 13:30 78 16 30 08/05/20 10:11 99/62 08/05/20 04:00 97.7 100 Laboratory Tests Test 08/05/20 07:20 08/05/20 09:15 Sodium Level 140 MMOL/L (136-145) Potassium Level 2.1 MMOL/L (3.5-5.1) *L Chloride Level 100 MMOL/L (98-107) Carbon Dioxide Level 28 MMOL/L (21-32) Anion Gap 11 mmol/L (5-15) Blood Urea Nitrogen 100 mg/dL (7-18) #H Creatinine 1.7 MG/DL (0.55-1.30) H Estimat Glomerular Filtration Rate 40.5 mL/min (>60) Glucose Level 126 MG/DL (74-106) H Calcium Level 7.9 MG/DL (8.5-10.1) L Phosphorus Level 6.5 MG/DL (2.5-4.9) H Magnesium Level 1.9 MG/DL (1.8-2.4) White Blood Count 11.3 K/UL (4.8-10.8) H Red Blood Count 3.09 M/UL (4.70-6.10) L Hemoglobin 9.4 G/DL (14.2-18.0) L Hematocrit 25.7 % (42.0-52.0) L Mean Corpuscular Volume 83 FL (80-99) Mean Corpuscular Hemoglobin 30.4 PG (27.0-31.0) Mean Corpuscular Hemoglobin Concent 36.5 G/DL (32.0-36.0) H Red Cell Distribution Width 15.6 % (11.6-14.8) H Platelet Count 105 K/UL (150-450) L Mean Platelet Volume 14.2 FL (6.5-10.1) H Neutrophils (%) (Auto) 83.4 % (45.0-75.0) H Lymphocytes (%) (Auto) 9.9 % (20.0-45.0) L Monocytes (%) (Auto) 5.9 % (1.0-10.0) Eosinophils (%) (Auto) 0.0 % (0.0-3.0) Basophils (%) (Auto) 0.7 % (0.0-2.0) Neurologic Exam Objective trach tachy grimaces to pain lethargic Impression/Recommendations Problems: (1) Respiratory distress (2) Renal failure (3) Metabolic acidosis (4) NSTEMI (non-ST elevated myocardial infarction) (5) Sepsis Diagnostic Impression Encephalopathy, likely metabolic sepsis hx of left thalamic hemorrhage likely from htn icu level map > 65 monitor mental status cont atb fu cultures ok for heparin SC given ich is chronic Pedro Hale MD Aug 05, 2020 19:10
[2020-08-05 20:00] VITALS: BP 93/68
--- NOTE | 2020-08-05 20:07 | Infectious Diseases Prog Note ---
Assessment/Plan Assessment/Plan ASSESSMENT AND PLAN: 1. sepsis, fevers and leukocytosis, ? source - cefepime and flagyl - day # 4/7 - monitor labs, cultures negative, c.diff. - negative - leukocytosis and fevers improved 2. Trach, vent. 3. Dysphagia, on G-tube. 4. 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 5. Diabetes. 6. Hypertension. 7. Blood sugar and blood pressure treatment per primary care team. 8. Acute renal failure. 9. Anemia. 10. Respiratory failure. 11. GERD. 12. Vent dependency. 13. No allergies. 14. Social history is negative. 15. Family history noncontributory. 16. MAR was noted. 17. Case was discussed with RN. Subjective Constitutional: Reports: other - on trach/vent ; Denies: fever HEENT: Reports: congestion Respiratory: Reports: shortness of breath, other - trach and vent Cardiovascular: Denies: chest pain Gastrointestinal/Abdominal: Reports: other - + rectal tube; Denies: nausea, vomiting Genitourinary: Reports: other - + mota Psychiatric: Reports: other - NA Skin: Denies: rash Hematologic: Denies: bleeding Musculoskeletal: Reports: other - NA Allergies: Coded Allergies: No Known Allergies (Unverified , 08/01/20) Objective Last 24 Hour Vital Signs Date Time Temp Pulse Resp B/P (MAP) Pulse Ox O2 Delivery O2 Flow Rate FiO2 08/05/20 19:50 82 16 30 08/05/20 16:00 Mechanical Ventilator 08/05/20 13:30 78 16 30 08/05/20 12:00 Mechanical Ventilator 08/05/20 10:11 85 99/62 08/05/20 08:00 84 08/05/20 08:00 Mechanical Ventilator 08/05/20 07:14 108 21 30 08/05/20 04:00 Mechanical Ventilator 08/05/20 04:00 30 08/05/20 04:00 97.7 80 17 114/70 (85) 100 08/05/20 04:00 83 08/05/20 02:24 104 19 30 08/05/20 00:00 97.5 96 22 135/82 (99) 100 08/05/20 00:00 Mechanical Ventilator 08/04/20 23:57 98 08/04/20 23:00 101 22 156/88 (110) 98 08/04/20 22:48 117 24 30 08/04/20 22:00 102 22 133/84 (100) 98 08/04/20 21:15 108 136/84 08/04/20 21:00 115 20 136/84 (101) 99 Height (Feet): 5 Height (Inches): 7.00 Weight (Pounds): 175 General Appearance: other - on vent HEENT: anicteric, no JVD, status post trach Respiratory/Chest: crackles/rales, rhonchi - bilaterally Cardiovascular: normal rate, regular rhythm Abdomen: normal bowel sounds, soft, non tender, no organomegaly Genitourinary: other - + mota - urine clear Extremities: no cyanosis Skin: no rash Neurologic/Psychiatric: other - lethargic and weak Lymphatic: no neck adenopathy Musculoskeletal: no effusion Chest x-ray - 08/03/20 - Procedure: XRAY Chest 1v Indication: Shortness of breath Technique: One view of the chest Comparison: 08/01/2020 Findings: Lungs and pleural spaces are clear. Heart size is normal. Tracheostomy again demonstrated. Findings are unchanged Impression: No acute process Microbiology Date/Time Source Procedure Growth Status 08/02/20 05:00 Rectum VRE Culture - Final NO VANCOMYCIN RESISTANT ENTEROCOCCUS ... Complete 08/02/20 05:00 Stool Clostridium difficile Toxin Assay - Final Complete 08/02/20 05:00 Nasal Nares MRSA Culture - Final NO METHICILLIN RESISTANT STAPH AUREUS... Complete 08/01/20 23:00 Straight Cath Urine Culture - Final NO GROWTH AFTER 48 HOURS Complete 08/01/20 13:10 Blood Blood Culture - Preliminary NO GROWTH AFTER 72 HOURS Resulted Laboratory Tests Test 08/05/20 07:20 08/05/20 09:15 Sodium Level 140 MMOL/L (136-145) Potassium Level 2.1 MMOL/L (3.5-5.1) *L Chloride Level 100 MMOL/L (98-107) Carbon Dioxide Level 28 MMOL/L (21-32) Anion Gap 11 mmol/L (5-15) Blood Urea Nitrogen 100 mg/dL (7-18) #H Creatinine 1.7 MG/DL (0.55-1.30) H Estimat Glomerular Filtration Rate 40.5 mL/min (>60) Glucose Level 126 MG/DL (74-106) H Calcium Level 7.9 MG/DL (8.5-10.1) L Phosphorus Level 6.5 MG/DL (2.5-4.9) H Magnesium Level 1.9 MG/DL (1.8-2.4) White Blood Count 11.3 K/UL (4.8-10.8) H Red Blood Count 3.09 M/UL (4.70-6.10) L Hemoglobin 9.4 G/DL (14.2-18.0) L Hematocrit 25.7 % (42.0-52.0) L Mean Corpuscular Volume 83 FL (80-99) Mean Corpuscular Hemoglobin 30.4 PG (27.0-31.0) Mean Corpuscular Hemoglobin Concent 36.5 G/DL (32.0-36.0) H Red Cell Distribution Width 15.6 % (11.6-14.8) H Platelet Count 105 K/UL (150-450) L Mean Platelet Volume 14.2 FL (6.5-10.1) H Neutrophils (%) (Auto) 83.4 % (45.0-75.0) H Lymphocytes (%) (Auto) 9.9 % (20.0-45.0) L Monocytes (%) (Auto) 5.9 % (1.0-10.0) Eosinophils (%) (Auto) 0.0 % (0.0-3.0) Basophils (%) (Auto) 0.7 % (0.0-2.0) Current Medications Medications (Trade) Dose Ordered Sig/Maegan Route PRN Reason Start Time Stop Time Status Last Admin Dose Admin Acetaminophen (Tylenol) 650 mg Q4H PRN GT For Pain 08/02/20 15:45 09/01/20 15:44 08/03/20 02:13 Acetaminophen (Tylenol) 650 mg Q4H PRN GT Temp >100.5 08/02/20 15:45 09/01/20 15:44 Calcium Acetate (Phoslo) 1,334 mg TIAC ORAL 08/05/20 11:30 11/03/20 11:29 08/05/20 17:29 Cefepime HCl 1 gm/ Dextrose 55 ml @ 110 mls/hr Q24H IVPB 08/01/20 21:00 08/08/20 20:59 08/04/20 21:14 Chlorhexidine Gluconate (Deisy-Hex 2%) 1 applic BIOTEC TOPIC 08/02/20 21:00 10/31/20 20:59 08/04/20 21:14 Dextrose 1,000 ml @ 0 mls/hr Q0M IV 08/02/20 09:15 09/01/20 09:14 Heparin Sodium (Porcine) (Heparin 5000 units/ml) 5,000 units EVERY 12 HOURS SUBQ 08/02/20 21:00 09/16/20 20:59 08/05/20 10:13 Linezolid (Zyvox) 600 mg EVERY 12 HOURS ORAL 08/02/20 21:00 08/07/20 20:59 08/05/20 10:11 Metoclopramide HCl (Reglan) 10 mg Q6H PRN IVP Nausea & Vomiting 08/05/20 14:15 09/04/20 14:14 08/05/20 17:29 Metoprolol Tartrate (Lopressor) 12.5 mg Q12HR GT 08/02/20 21:00 10/31/20 09:59 08/05/20 10:11 Metronidazole (Flagyl) 500 mg EVERY 8 HOURS ORAL 08/02/20 22:00 08/09/20 21:59 08/05/20 13:51 Pantoprazole (Protonix) 40 mg DAILY IVP 08/03/20 09:00 09/02/20 08:59 08/05/20 10:09 Sevelamer Carbonate (Renvela) 800 mg THREE TIMES A DAY NG 08/04/20 13:00 11/02/20 12:59 08/05/20 17:29 Calderon Vazquez MD Aug 05, 2020 20:07
--- NOTE | 2020-08-05 21:30 | Cardiac Electrophysiology PN ---
Assessment/Plan Assessment/Plan 1. Troponin elevation. Levels are coming down at 0.8 to 0.5. Due to renal failure with BUN of 343, creatinine of 4.1 as well as sepsis with white count of 22,000. His EKG also shows sinus rhythm with inferolateral ischemia. On Lopressor 12.5 bid. 2. Shortness of breath with respiratory failure, status post tracheostomy, on the ventilator with 30% FiO2. 3. Dysphagia, status post PEG placement. 4. Acute renal failure with BUN of 343, creatinine of 4.1. The patient was already evaluated by Nephrology. S/P Nicholas catheter and first HD on 08/03 5. Diabetes. 6. History of left thalamic hemorrhage. Subjective Subjective S/P Right groin Nicholas catheter placement by Dr Brand and HD , on 30% Fio2 via trach Objective Last 24 Hour Vital Signs Date Time Temp Pulse Resp B/P (MAP) Pulse Ox O2 Delivery O2 Flow Rate FiO2 08/05/20 21:00 87 93/68 08/05/20 20:00 Mechanical Ventilator 08/05/20 20:00 87 08/05/20 20:00 99.1 87 18 93/68 (76) 100 08/05/20 20:00 30 08/05/20 19:50 82 16 30 08/05/20 16:00 30 08/05/20 16:00 97.1 78 18 149/83 (105) 100 08/05/20 16:00 Mechanical Ventilator 08/05/20 16:00 83 08/05/20 13:30 78 16 30 08/05/20 12:00 Mechanical Ventilator 08/05/20 12:00 30 08/05/20 12:00 97.0 87 20 132/95 (107) 100 08/05/20 12:00 104 08/05/20 10:11 85 99/62 08/05/20 08:00 84 08/05/20 08:00 30 08/05/20 08:00 Mechanical Ventilator 08/05/20 08:00 98.7 88 20 99/62 (74) 100 08/05/20 07:14 108 21 30 08/05/20 04:00 Mechanical Ventilator 08/05/20 04:00 30 08/05/20 04:00 97.7 80 17 114/70 (85) 100 08/05/20 04:00 83 08/05/20 02:24 104 19 30 08/05/20 00:00 97.5 96 22 135/82 (99) 100 08/05/20 00:00 Mechanical Ventilator 08/04/20 23:57 98 08/04/20 23:00 101 22 156/88 (110) 98 08/04/20 22:48 117 24 30 08/04/20 22:00 102 22 133/84 (100) 98 Intake and Output 08/04/20 08/05/20 19:00 07:00 Intake Total 350 ml Output Total 660 ml 765 ml Balance -310 ml -765 ml Intake Free Water 50 ml IV Total 150 ml Tube Feeding 150 ml Output Urine Total 360 ml 510 ml Stool Total 300 ml 255 ml Laboratory Tests Test 08/05/20 07:20 08/05/20 09:15 Sodium Level 140 MMOL/L (136-145) Potassium Level 2.1 MMOL/L (3.5-5.1) *L Chloride Level 100 MMOL/L (98-107) Carbon Dioxide Level 28 MMOL/L (21-32) Anion Gap 11 mmol/L (5-15) Blood Urea Nitrogen 100 mg/dL (7-18) #H Creatinine 1.7 MG/DL (0.55-1.30) H Estimat Glomerular Filtration Rate 40.5 mL/min (>60) Glucose Level 126 MG/DL (74-106) H Calcium Level 7.9 MG/DL (8.5-10.1) L Phosphorus Level 6.5 MG/DL (2.5-4.9) H Magnesium Level 1.9 MG/DL (1.8-2.4) White Blood Count 11.3 K/UL (4.8-10.8) H Red Blood Count 3.09 M/UL (4.70-6.10) L Hemoglobin 9.4 G/DL (14.2-18.0) L Hematocrit 25.7 % (42.0-52.0) L Mean Corpuscular Volume 83 FL (80-99) Mean Corpuscular Hemoglobin 30.4 PG (27.0-31.0) Mean Corpuscular Hemoglobin Concent 36.5 G/DL (32.0-36.0) H Red Cell Distribution Width 15.6 % (11.6-14.8) H Platelet Count 105 K/UL (150-450) L Mean Platelet Volume 14.2 FL (6.5-10.1) H Neutrophils (%) (Auto) 83.4 % (45.0-75.0) H Lymphocytes (%) (Auto) 9.9 % (20.0-45.0) L Monocytes (%) (Auto) 5.9 % (1.0-10.0) Eosinophils (%) (Auto) 0.0 % (0.0-3.0) Basophils (%) (Auto) 0.7 % (0.0-2.0) Objective HEAD AND NECK: Status post tracheostomy with no JVD. LUNGS: Coarse rhonchi. CARDIOVASCULAR: Regular S1 and S2 with no gallop. ABDOMEN: Status post G-tube. EXTREMITIES: No pitting edema. Gregorio Mari MD Aug 05, 2020 21:30
[2020-08-05] MEDS: Dyna-Hex 2% Top Sol 2oz TOPIC SCH (22:46)
[2020-08-05] MEDS: Cefepime HCl 1 GM in D5W 55 ML IVPB SCH (22:51)
[2020-08-06] VITALS: BP 133/88
[2020-08-06 04:00] VITALS: BP 130/80
[2020-08-06] MEDS: Metoclopramide 10mg/2ml Inj IVP PRN (06:32)
[2020-08-06] MEDS: metroNIDAZOLE 500mg tab ORAL SCH ×3 (06:32→22:00)
[2020-08-06 08:00] VITALS: BP 130/86
[2020-08-06] MEDS: Heparin 5000 units/ml inj SUBQ SCH ×2 (09:00→22:06)
[2020-08-06] MEDS: Renvela 800mg Pkt NG SCH ×3 (09:14→17:21)
[2020-08-06] MEDS: Metoprolol Tartrate 12.5mg TAB GT SCH ×2 (09:14→21:39)
[2020-08-06] MEDS: Pantoprazole Inj IVP SCH (09:14)
--- NOTE | 2020-08-06 09:31 | Hematology/Onc Progress Note ---
Assessment/Plan Assessment/Plan ASSESSMENT AND PLAN: # Leukocytosis is due to sepsis, fevers, leukocytosis. Avoid nephrotoxic drugs. --> ABX Continue Zyvox, cefepime, and Flagyl --> iamging has been reviewed --> as per pulm and id recs --> wbc 22-->18-->12->11 # Anemia due to hemodilution --> if lower than 10, get workup --> transfuse prn --> hgb 11-->10-->7.4-->9 # Thrombocytopenia due to underlying infection --> medications have been reviewed --> 186-->127--.105 --> is on hep, monitor --> smear has been reviewed --> hep and hiv neg # Trach, vent. # Dysphagia, on G-tube. 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 # Diabetes. # Hypertension. # Acute renal failure. # GERD. # Dvt ppx heparin sq Appreciate consultation and anil RN Subjective Constitutional: Denies: no symptoms, chills, fever, malaise, weakness, other HEENT: Denies: no symptoms, eye pain, blurred vision, tearing, double vision, ear pain, ear discharge, nose pain, nose congestion, throat pain, throat swelling, mouth pain, mouth swelling, other Cardiovascular: Denies: no symptoms, chest pain, edema, irregular heart rate, lightheadedness, palpitations, syncope, other Gastrointestinal/Abdominal: Denies: no symptoms, abdomen distended, abdominal pain, black stools, tarry stools, blood in stool, constipated, diarrhea, difficulty swallowing, nausea, poor appetite, poor fluid intake, rectal bleeding, vomiting, other Genitourinary: Denies: no symptoms, burning, discharge, frequency, flank pain, hematuria, incontinence, pain, urgency, other Neurologic/Psychiatric: Denies: no symptoms, anxiety, depressed, emotional problems, headache, numbness, paresthesia, pre-existing deficit, seizure, tingling, tremors, weakness, other Allergies: Coded Allergies: No Known Allergies (Unverified , 08/01/20) All Systems: reviewed and negative except above Subjective 08/04 remains on vent, abx, labs reviewed, meds noted 08/06 hd prn, no bleeding,with omta and rectal tube, labs noted Objective Objective Current Medications Medications (Trade) Dose Ordered Sig/Maegan Route PRN Reason Start Time Stop Time Status Last Admin Dose Admin Acetaminophen (Tylenol) 650 mg Q4H PRN GT For Pain 08/02/20 15:45 09/01/20 15:44 08/03/20 02:13 Acetaminophen (Tylenol) 650 mg Q4H PRN GT Temp >100.5 08/02/20 15:45 09/01/20 15:44 Calcium Acetate (Phoslo) 1,334 mg TIAC ORAL 08/05/20 11:30 11/03/20 11:29 08/06/20 06:32 Cefepime HCl 1 gm/ Dextrose 55 ml @ 110 mls/hr Q24H IVPB 08/01/20 21:00 08/08/20 20:59 08/05/20 22:51 Chlorhexidine Gluconate (Deisy-Hex 2%) 1 applic BIOTEC TOPIC 08/02/20 21:00 10/31/20 20:59 08/05/20 22:46 Dextrose 1,000 ml @ 0 mls/hr Q0M IV 08/02/20 09:15 09/01/20 09:14 Heparin Sodium (Porcine) (Heparin 5000 units/ml) 5,000 units EVERY 12 HOURS SUBQ 08/02/20 21:00 09/16/20 20:59 08/05/20 10:13 Metoclopramide HCl (Reglan) 10 mg Q6H PRN IVP Nausea & Vomiting 08/05/20 14:15 09/04/20 14:14 08/06/20 06:32 Metoprolol Tartrate (Lopressor) 12.5 mg Q12HR GT 08/02/20 21:00 10/31/20 09:59 08/06/20 09:14 Metronidazole (Flagyl) 500 mg EVERY 8 HOURS ORAL 08/02/20 22:00 08/09/20 21:59 08/06/20 06:32 Pantoprazole (Protonix) 40 mg DAILY IVP 08/03/20 09:00 09/02/20 08:59 08/06/20 09:14 Sevelamer Carbonate (Renvela) 800 mg THREE TIMES A DAY NG 08/04/20 13:00 11/02/20 12:59 12/27/20 09:14 Last 24 Hour Vital Signs Date Time Temp Pulse Resp B/P (MAP) Pulse Ox O2 Delivery O2 Flow Rate FiO2 08/06/20 09:14 96 110/72 08/06/20 07:27 96 20 30 08/06/20 04:00 30 08/06/20 04:00 Mechanical Ventilator 08/06/20 04:00 88 08/06/20 04:00 98.8 90 20 130/80 (97) 98 08/06/20 01:38 87 20 30 08/06/20 00:00 98.7 92 20 133/88 (103) 98 08/06/20 00:00 Mechanical Ventilator 08/06/20 00:00 89 08/06/20 00:00 30 08/05/20 21:00 87 93/68 08/05/20 20:00 Mechanical Ventilator 08/05/20 20:00 87 08/05/20 20:00 99.1 87 18 93/68 (76) 100 08/05/20 20:00 30 08/05/20 19:50 82 16 30 08/05/20 16:00 30 08/05/20 16:00 97.1 78 18 149/83 (105) 100 08/05/20 16:00 Mechanical Ventilator 08/05/20 16:00 83 08/05/20 13:30 78 16 30 08/05/20 12:00 Mechanical Ventilator 08/05/20 12:00 30 08/05/20 12:00 97.0 87 20 132/95 (107) 100 08/05/20 12:00 104 08/05/20 10:11 85 99/62 08/05/20 08:00 84 08/05/20 08:00 30 08/05/20 08:00 Mechanical Ventilator 08/05/20 08:00 98.7 88 20 99/62 (74) 100 08/05/20 07:14 108 21 30 08/05/20 04:00 Mechanical Ventilator 08/05/20 04:00 30 08/05/20 04:00 97.7 80 17 114/70 (85) 100 08/05/20 04:00 83 08/05/20 02:24 104 19 30 08/05/20 00:00 97.5 96 22 135/82 (99) 100 08/05/20 00:00 Mechanical Ventilator 08/04/20 23:57 98 08/04/20 23:00 101 22 156/88 (110) 98 08/04/20 22:48 117 24 30 08/04/20 22:00 102 22 133/84 (100) 98 08/04/20 21:15 108 136/84 08/04/20 21:00 115 20 136/84 (101) 99 08/04/20 20:00 110 08/04/20 20:00 98.2 111 24 123/81 (95) 99 08/04/20 20:00 30 08/04/20 20:00 Mechanical Ventilator 08/04/20 19:20 120 27 30 08/04/20 19:00 112 29 141/81 (101) 99 08/04/20 18:00 94 23 154/79 (104) 99 08/04/20 17:00 89 18 137/85 (102) 96 08/04/20 16:00 Mechanical Ventilator 08/04/20 16:00 30 08/04/20 16:00 82 08/04/20 16:00 98.1 88 21 106/70 (82) 96 08/04/20 15:10 92 25 30 08/04/20 15:00 91 20 144/73 (96) 96 08/04/20 14:00 95 18 140/74 (96) 97 08/04/20 13:00 95 17 125/64 (84) 100 08/04/20 12:00 30 08/04/20 12:00 Mechanical Ventilator 08/04/20 12:00 97.6 96 17 133/75 (94) 90 08/04/20 11:33 94 08/04/20 11:10 84 23 30 08/04/20 11:00 84 19 98/56 (70) 100 08/04/20 10:00 89 21 87/54 (65) 100 Intake and Output 08/05/20 08/06/20 19:00 07:00 Intake Total 370 ml Output Total 1150 ml Balance -1150 ml 370 ml Intake Free Water 50 ml IV Total 55 ml Tube Feeding 265 ml Output Urine Total 1000 ml Emesis 150 ml Labs Test 08/03/20 23:00 08/04/20 04:45 08/04/20 12:05 08/05/20 07:20 Sodium Level 143 MMOL/L (136-145) 143 MMOL/L (136-145) 140 MMOL/L (136-145) Potassium Level 2.6 MMOL/L (3.5-5.1) 2.4 MMOL/L (3.5-5.1) 2.1 MMOL/L (3.5-5.1) Chloride Level 103 MMOL/L (98-107) 103 MMOL/L (98-107) 100 MMOL/L (98-107) Carbon Dioxide Level 24 MMOL/L (21-32) 23 MMOL/L (21-32) 28 MMOL/L (21-32) Anion Gap 16 mmol/L (5-15) 18 mmol/L (5-15) 11 mmol/L (5-15) Blood Urea Nitrogen 200 mg/dL (7-18) 193 mg/dL (7-18) 100 mg/dL (7-18) Creatinine 2.8 MG/DL (0.55-1.30) 2.8 MG/DL (0.55-1.30) 1.7 MG/DL (0.55-1.30) Estimat Glomerular Filtration Rate 22.8 mL/min (>60) 22.8 mL/min (>60) 40.5 mL/min (>60) Glucose Level 202 MG/DL (74-106) 149 MG/DL (74-106) 126 MG/DL (74-106) Calcium Level 7.8 MG/DL (8.5-10.1) 7.8 MG/DL (8.5-10.1) 7.9 MG/DL (8.5-10.1) White Blood Count 12.3 K/UL (4.8-10.8) Red Blood Count 2.48 M/UL (4.70-6.10) Hemoglobin 7.4 G/DL (14.2-18.0) Hematocrit 21.8 % (42.0-52.0) Mean Corpuscular Volume 88 FL (80-99) Mean Corpuscular Hemoglobin 29.9 PG (27.0-31.0) Mean Corpuscular Hemoglobin Concent 34.1 G/DL (32.0-36.0) Red Cell Distribution Width 16.0 % (11.6-14.8) Platelet Count 105 K/UL (150-450) Mean Platelet Volume 12.8 FL (6.5-10.1) Neutrophils (%) (Auto) % (45.0-75.0) Lymphocytes (%) (Auto) % (20.0-45.0) Monocytes (%) (Auto) % (1.0-10.0) Eosinophils (%) (Auto) % (0.0-3.0) Basophils (%) (Auto) % (0.0-2.0) Phosphorus Level 7.4 MG/DL (2.5-4.9) 6.5 MG/DL (2.5-4.9) Magnesium Level 2.2 MG/DL (1.8-2.4) 1.9 MG/DL (1.8-2.4) Arterial Blood pH 7.559 (7.350-7.450) Arterial Blood Partial Pressure CO2 24.6 mmHg (35.0-45.0) Arterial Blood Partial Pressure O2 403.6 mmHg (75.0-100.0) Arterial Blood HCO3 21.5 mmol/L (22.0-26.0) Arterial Blood Oxygen Saturation 98.4 % (95-100) Arterial Blood Base Excess -0.3 (-2-2) Russ Test Positive Test 08/05/20 09:15 08/05/20 23:42 White Blood Count 11.3 K/UL (4.8-10.8) Red Blood Count 3.09 M/UL (4.70-6.10) Hemoglobin 9.4 G/DL (14.2-18.0) Hematocrit 25.7 % (42.0-52.0) Mean Corpuscular Volume 83 FL (80-99) Mean Corpuscular Hemoglobin 30.4 PG (27.0-31.0) Mean Corpuscular Hemoglobin Concent 36.5 G/DL (32.0-36.0) Red Cell Distribution Width 15.6 % (11.6-14.8) Platelet Count 105 K/UL (150-450) Mean Platelet Volume 14.2 FL (6.5-10.1) Neutrophils (%) (Auto) 83.4 % (45.0-75.0) Lymphocytes (%) (Auto) 9.9 % (20.0-45.0) Monocytes (%) (Auto) 5.9 % (1.0-10.0) Eosinophils (%) (Auto) 0.0 % (0.0-3.0) Basophils (%) (Auto) 0.7 % (0.0-2.0) Height (Feet): 5 Height (Inches): 7.00 Weight (Pounds): 175 Objective Physical Exam General Appearance: lethargic Lines, tubes and drains: trach+++ vent++++ HEENT: normocephalic, atraumatic, mucous membranes moist Neck: normal alignment Respiratory/Chest: rhonchi - bilaterally Cardiovascular/Chest: normal peripheral pulses, regular rhythm Abdomen: soft, no mass, feeding tube Extremities: no edema, no cyanosis Skin Exam: normal pigmentation, warm/dry Neurologic: unresponsiveness Karthik Mercedes MD Aug 06, 2020 09:31
[2020-08-06 09:51] LABS: HEMATOCRIT 24.9 % (42.0-52.0); HEMOGLOBIN 9.1 G/DL (14.2-18.0); MEAN CORPUSCULAR VOLUME 85 FL (80-99); PLATELET COUNT 123 K/UL (150-450); RED BLOOD COUNT 2.94 M/UL (4.70-6.10); RED CELL DISTRIBUTION WIDTH 14.3 % (11.6-14.8); WHITE BLOOD COUNT 11.5 K/UL (4.8-10.8)
--- NOTE | 2020-08-06 10:01 | Nephrology Progress Note ---
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 per daughter #Uremia #Anemia #Pneumonia #sepsis - per discussion with daughter - HD is in line with goals of care - next HD tomorrow - monitor labs - gently replete K - DC bicarb drip - add sevelamer - monitor ABG - antibiotics per ID - avoid nephrotoxins - monitor UOP - monitor electrolytes time spent 65 min Subjective ROS Limited/Unobtainable: Yes Subjective K remains low will replete Objective Objective Last 24 Hour Vital Signs Date Time Temp Pulse Resp B/P (MAP) Pulse Ox O2 Delivery O2 Flow Rate FiO2 08/06/20 09:14 96 110/72 08/06/20 08:00 97.5 89 17 130/86 (101) 100 08/06/20 07:27 96 20 30 08/06/20 04:00 30 08/06/20 04:00 Mechanical Ventilator 08/06/20 04:00 88 08/06/20 04:00 98.8 90 20 130/80 (97) 98 08/06/20 01:38 87 20 30 08/06/20 00:00 98.7 92 20 133/88 (103) 98 08/06/20 00:00 Mechanical Ventilator 08/06/20 00:00 89 08/06/20 00:00 30 08/05/20 21:00 87 93/68 08/05/20 20:00 Mechanical Ventilator 08/05/20 20:00 87 08/05/20 20:00 99.1 87 18 93/68 (76) 100 08/05/20 20:00 30 08/05/20 19:50 82 16 30 08/05/20 16:00 30 08/05/20 16:00 97.1 78 18 149/83 (105) 100 08/05/20 16:00 Mechanical Ventilator 08/05/20 16:00 83 08/05/20 13:30 78 16 30 08/05/20 12:00 Mechanical Ventilator 08/05/20 12:00 30 08/05/20 12:00 97.0 87 20 132/95 (107) 100 08/05/20 12:00 104 08/05/20 10:11 85 99/62 Intake and Output 08/05/20 08/06/20 19:00 07:00 Intake Total 370 ml Output Total 1150 ml Balance -1150 ml 370 ml Intake Free Water 50 ml IV Total 55 ml Tube Feeding 265 ml Output Urine Total 1000 ml Emesis 150 ml Laboratory Tests 08/05/20 23:42: POC Whole Blood Glucose [Pending] 08/06/20 08:30: White Blood Count 11.5H, Red Blood Count 2.94L, Hemoglobin 9.1L, Hematocrit 24.9L, Mean Corpuscular Volume 85, Mean Corpuscular Hemoglobin 31.0, Mean Corpuscular Hemoglobin Concent 36.5H, Red Cell Distribution Width 14.3, Platelet Count 123L, Mean Platelet Volume 12.5H, Neutrophils (%) (Auto) , Lymphocytes ( %) (Auto) , Monocytes (%) (Auto) , Eosinophils (%) (Auto) , Basophils (%) (Auto) , Neutrophils % (Manual) [Pending], Lymphocytes % (Manual) [Pending], Platelet Estimate [Pending], Platelet Morphology [Pending], Sodium Level [Pending], Potassium Level [Pending], Chloride Level [Pending], Carbon Dioxide Level [Pending], Blood Urea Nitrogen [Pending], Creatinine [Pending], Estimat Felicitas merular Filtration Rate [Pending], Glucose Level [Pending], Calcium Level [Pending], Phosphorus Level [Pending], Magnesium Level [Pending] Height (Feet): 5 Height (Inches): 7.00 Weight (Pounds): 175 General Appearance: no apparent distress EENT: PERRL/EOMI Cardiovascular: normal peripheral pulses, normal rate, regular rhythm Respiratory/Chest: rhonchi - bilaterally Abdomen: normal bowel sounds, non tender, soft Extremities: trace edema Gladys Sherman M.D. Aug 06, 2020 10:01
--- NOTE | 2020-08-06 10:13 | Pulmonology Progress Note ---
Subjective ROS Limited/Unobtainable: Yes Interval Events: No new events Constitutional: Reports: other - on trach/vent ; Denies: fever HEENT: Repors: no symptoms Respiratory: Reports: no symptoms Cardiovascular: Reports: no symptoms Gastrointestinal/Abdominal: Reports: other - + rectal tube; Denies: nausea, vomiting Psychiatric: Reports: other - NA Skin: Denies: rash Musculoskeletal: Reports: other - NA Allergies: Coded Allergies: No Known Allergies (Unverified , 08/01/20) All Systems: reviewed and negative except above Objective Last 24 Hour Vital Signs Date Time Temp Pulse Resp B/P (MAP) Pulse Ox O2 Delivery O2 Flow Rate FiO2 08/06/20 09:14 96 110/72 08/06/20 08:00 97.5 89 17 130/86 (101) 100 08/06/20 08:00 Mechanical Ventilator 08/06/20 08:00 30 08/06/20 07:51 93 08/06/20 07:27 96 20 30 08/06/20 04:00 30 08/06/20 04:00 Mechanical Ventilator 08/06/20 04:00 88 08/06/20 04:00 98.8 90 20 130/80 (97) 98 08/06/20 01:38 87 20 30 08/06/20 00:00 98.7 92 20 133/88 (103) 98 08/06/20 00:00 Mechanical Ventilator 08/06/20 00:00 89 08/06/20 00:00 30 08/05/20 21:00 87 93/68 08/05/20 20:00 Mechanical Ventilator 08/05/20 20:00 87 08/05/20 20:00 99.1 87 18 93/68 (76) 100 08/05/20 20:00 30 08/05/20 19:50 82 16 30 08/05/20 16:00 30 08/05/20 16:00 97.1 78 18 149/83 (105) 100 08/05/20 16:00 Mechanical Ventilator 08/05/20 16:00 83 08/05/20 13:30 78 16 30 08/05/20 12:00 Mechanical Ventilator 08/05/20 12:00 30 08/05/20 12:00 97.0 87 20 132/95 (107) 100 08/05/20 12:00 104 Intake and Output 08/05/20 08/06/20 19:00 07:00 Intake Total 370 ml Output Total 1150 ml Balance -1150 ml 370 ml Intake Free Water 50 ml IV Total 55 ml Tube Feeding 265 ml Output Urine Total 1000 ml Emesis 150 ml General Appearance: WD/WN HEENT: normocephalic, status post trach Respiratory: chest wall non-tender Cardiovascular: normal peripheral pulses, normal rate Abdomen: normal bowel sounds Laboratory Tests 08/05/20 23:42: POC Whole Blood Glucose [Pending] 08/06/20 08:30: White Blood Count 11.5H, Red Blood Count 2.94L, Hemoglobin 9.1L, Hematocrit 24.9L, Mean Corpuscular Volume 85, Mean Corpuscular Hemoglobin 31.0, Mean Corpuscular Hemoglobin Concent 36.5H, Red Cell Distribution Width 14.3, Platelet Count 123L, Mean Platelet Volume 12.5H, Neutrophils (%) (Auto) , Lymphocytes (%) (Auto) , Monocytes (%) (Auto) , Eosinophils (%) (Auto) , Basophils (%) (Auto) , Neutrophils % (Manual) [Pending], Lymphocytes % (Manual) [Pending], Platelet Estimate [Pending], Platelet Morphology [Pending], Sodium Level [Pending], Potassium Level [Pending], Chloride Level [Pending], Carbon Dioxide Level [Pending], Blood Urea Nitrogen [Pending], Creatinine [Pending], Estimat Glomerular Filtration Rate [Pending], Glucose Level [Pending], Calcium Level [Pending], Phosphorus Level [Pending], Magnesium Level [Pending] Current Medications Medications (Trade) Dose Ordered Sig/Maegan Route PRN Reason Start Time Stop Time Status Last Admin Dose Admin Acetaminophen (Tylenol) 650 mg Q4H PRN GT For Pain 08/02/20 15:45 09/01/20 15:44 08/03/20 02:13 Acetaminophen (Tylenol) 650 mg Q4H PRN GT Temp >100.5 08/02/20 15:45 09/01/20 15:44 Calcium Acetate (Phoslo) 1,334 mg TIAC ORAL 08/05/20 11:30 11/03/20 11:29 08/06/20 06:32 Cefepime HCl 1 gm/ Dextrose 55 ml @ 110 mls/hr Q24H IVPB 12/22/20 21:00 08/08/20 20:59 08/05/20 22:51 Chlorhexidine Gluconate (Deisy-Hex 2%) 1 applic BIOTEC TOPIC 08/02/20 21:00 10/31/20 20:59 08/05/20 22:46 Dextrose 1,000 ml @ 0 mls/hr Q0M IV 08/02/20 09:15 09/01/20 09:14 Heparin Sodium (Porcine) (Heparin 5000 units/ml) 5,000 units EVERY 12 HOURS SUBQ 08/02/20 21:00 09/16/20 20:59 08/05/20 10:13 Metoclopramide HCl (Reglan) 10 mg Q6H PRN IVP Nausea & Vomiting 08/05/20 14:15 09/04/20 14:14 08/06/20 06:32 Metoprolol Tartrate (Lopressor) 12.5 mg Q12HR GT 08/02/20 21:00 10/31/20 09:59 08/06/20 09:14 Metronidazole (Flagyl) 500 mg EVERY 8 HOURS ORAL 08/02/20 22:00 08/09/20 21:59 08/06/20 06:32 Pantoprazole (Protonix) 40 mg DAILY IVP 08/03/20 09:00 09/02/20 08:59 08/06/20 09:14 Sevelamer Carbonate (Renvela) 800 mg THREE TIMES A DAY NG 08/04/20 13:00 11/02/20 12:59 08/06/20 09:14 Assessment/Plan Assessment/Plan IMPRESSION: 1. Chronic respiratory failure. Chronic tracheostomy 2. Metabolic acidosis. On hemodialysis 3. Renal failure. HD per renal 4. Leukocytosis. 5. Sepsis. Source unclear; C dif negative; CXR clear DISCUSSION: Agree with broad spectrum antibiotics. I will continue AC mode. Currently FiO2 30%; PEEP 5 Discontinued bicarbonate supplementation. Noted plans for HD again today. Potassium supplementation per nephrology Hemodynamically stable I will follow carefully. Jeromy Ryan Omar Syed MD Aug 06, 2020 10:13
[2020-08-06 10:21] LABS: CALCIUM 8.3 MG/DL (8.5-10.1); CREATININE 1.7 MG/DL (0.55-1.30); PHOSPHORUS 6.6 MG/DL (2.5-4.9)
[2020-08-06 10:27] LABS: POTASSIUM 1.9 MMOL/L (3.5-5.1)
--- NOTE | 2020-08-06 11:52 | General Progress Note ---
Subjective Date patient seen: Aug 06, 2020 ROS Limited/Unobtainable: Yes Allergies: Coded Allergies: No Known Allergies (Unverified , 08/01/20) Subjective Potassium still low this AM, repleting. High residuals on tube feed so held temporarily. Oxygenation stable. Not verbalizing, poor mental status. Objective Last 24 Hour Vital Signs Date Time Temp Pulse Resp B/P (MAP) Pulse Ox O2 Delivery O2 Flow Rate FiO2 08/06/20 11:10 86 19 30 08/06/20 09:14 96 110/72 08/06/20 08:00 97.5 89 17 130/86 (101) 100 08/06/20 08:00 Mechanical Ventilator 08/06/20 08:00 30 08/06/20 07:51 93 08/06/20 07:27 96 20 30 08/06/20 04:00 30 08/06/20 04:00 Mechanical Ventilator 08/06/20 04:00 88 08/06/20 04:00 98.8 90 20 130/80 (97) 98 08/06/20 01:38 87 20 30 08/06/20 00:00 98.7 92 20 133/88 (103) 98 08/06/20 00:00 Mechanical Ventilator 08/06/20 00:00 89 08/06/20 00:00 30 08/05/20 21:00 87 93/68 08/05/20 20:00 Mechanical Ventilator 08/05/20 20:00 87 08/05/20 20:00 99.1 87 18 93/68 (76) 100 08/05/20 20:00 30 08/05/20 19:50 82 16 30 08/05/20 16:00 30 08/05/20 16:00 97.1 78 18 149/83 (105) 100 08/05/20 16:00 Mechanical Ventilator 08/05/20 16:00 83 08/05/20 13:30 78 16 30 08/05/20 12:00 Mechanical Ventilator 08/05/20 12:00 30 08/05/20 12:00 97.0 87 20 132/95 (107) 100 08/05/20 12:00 104 Intake and Output 08/05/20 08/06/20 19:00 07:00 Intake Total 370 ml Output Total 1150 ml Balance -1150 ml 370 ml Intake Free Water 50 ml IV Total 55 ml Tube Feeding 265 ml Output Urine Total 1000 ml Emesis 150 ml Laboratory Tests 08/05/20 23:42: POC Whole Blood Glucose [Pending] 08/06/20 08:30: White Blood Count 11.5H, Red Blood Count 2.94L, Hemoglobin 9.1L, Hematocrit 24.9L, Mean Corpuscular Volume 85, Mean Corpuscular Hemoglobin 31.0, Mean Corpuscular Hemoglobin Concent 36.5H, Red Cell Distribution Width 14.3, Platelet Count 123L, Mean Platelet Volume 12.5H, Neutrophils (%) (Auto) , Lymphocytes (%) (Auto) , Monocytes (%) (Auto) , Eosinophils (%) (Auto) , Basophils (%) (Auto) , Neutrophils % (Manual) [Pending], Lymphocytes % (Manual) [Pending], Platelet Estimate [Pending], Platelet Morphology [Pending], Sodium Level 140, Potassium Level 1.9*L, Chloride Level 101, Carbon Dioxide Level 27, Anion Gap 11, Blood Urea Nitrogen 91H, Creatinine 1.7H, Estimat Glomerular Filtration Rate 40.5, Glucose Level 127H, Calcium Level 8.3L, Phosphorus Level 6.6H, Magnesium Level 2.0, Hepatitis A IgM Antibody [Pending], Hepatitis B Surface Antigen [Pending], Hepatitis B Core IgM Antibody [Pending], Hepatitis C Antibody [Pending], HIV (1&2) Antibody Rapid Negative Height (Feet): 5 Height (Inches): 7.00 Weight (Pounds): 175 Objective General Appearance: lethargic, opens eyes but does not track or respond to verbal cues Lines, tubes and drains: trach, HD line in place HEENT: normocephalic, atraumatic, mucous membranes moist Neck: normal alignment Respiratory/Chest: rhonchi - bilaterally Cardiovascular/Chest: normal peripheral pulses, regular rhythm Abdomen: soft, no mass, feeding tube Extremities: no edema, no cyanosis Skin Exam: normal pigmentation, warm/dry Neurologic: unresponsiveness Assessment/Plan Assessment/Plan: #Sepsis - unclear source, cultures NTD. WBC still improving. #Metabolic acidosis - likely from severe uremia - improving #NSTEMI - may be demand ischemia in sepsis #Acute kidney injury - may be sepsis related. - s/p CTX, zosyn, IVF in ED - avoid nephrotoxic drugs - HD per nephro - cefepime - low threshold to broaden antibiotics - f/u cultures - NTD - IVF - trend troponin - ID consult Dr. Stone - Nephro consult Dr. Sherman - Cardiology consult Dr. Mari #Acute on chronic respiratory failure - stable on FiO2 30% #s/p tracheostomy #PEG status - Ventilator dependent - transferred out of ICU 08/04/2020 - CXR clear, low suspicion for pneumonia - Covid negative - pulmonary consult Dr. Nunez - tube feed - nutrition consult #Hx of thalamic infarct #Uremic encephalopathy? - nonverbal, lethargic currently - neurology consult Dr. Hale #Diabetes - ISS Fluids: IVF Diet: tube feed DVT ppx: heparin Code: FULL I spent 38 minutes on this patient's case, and 22 minutes were dedicated to counseling and/or care coordination. Discussed with cardiology and pulmonology and ID consultants. Time of note may not reflect time of encounter Davidson Guzmán M.D. Aug 06, 2020 11:52
[2020-08-06 12:00] VITALS: BP 128/74
[2020-08-06 16:00] VITALS: BP 147/84
--- NOTE | 2020-08-06 18:03 | Surgery Progress Note ---
Surgery Progress Note Subjective Procedure Performed right femoral temporary hemodialysis catheter insertion Symptoms: improved, tolerating diet, passing flatus Objective Last 24 Hour Vital Signs Date Time Temp Pulse Resp B/P (MAP) Pulse Ox O2 Delivery O2 Flow Rate FiO2 08/06/20 15:13 99 18 30 08/06/20 12:00 Mechanical Ventilator 08/06/20 12:00 97.9 88 17 128/74 (92) 100 08/06/20 12:00 30 08/06/20 11:36 87 08/06/20 11:10 86 19 30 08/06/20 09:14 96 110/72 08/06/20 08:00 97.5 89 17 130/86 (101) 100 08/06/20 08:00 Mechanical Ventilator 08/06/20 08:00 30 08/06/20 07:51 93 08/06/20 07:27 96 20 30 08/06/20 04:00 30 08/06/20 04:00 Mechanical Ventilator 08/06/20 04:00 88 08/06/20 04:00 98.8 90 20 130/80 (97) 98 08/06/20 01:38 87 20 30 08/06/20 00:00 98.7 92 20 133/88 (103) 98 08/06/20 00:00 Mechanical Ventilator 08/06/20 00:00 89 08/06/20 00:00 30 08/05/20 21:00 87 93/68 08/05/20 20:00 Mechanical Ventilator 08/05/20 20:00 87 08/05/20 20:00 99.1 87 18 93/68 (76) 100 08/05/20 20:00 30 08/05/20 19:50 82 16 30 I&O Intake and Output 08/05/20 08/06/20 19:00 07:00 Intake Total 370 ml Output Total 1150 ml Balance -1150 ml 370 ml Intake Free Water 50 ml IV Total 55 ml Tube Feeding 265 ml Output Urine Total 1000 ml Emesis 150 ml Dressing: saturated Cardiovascular: RSR Respiratory: decreased breath sounds Abdomen: non-tender, present bowel sounds Extremities: no edema, no tenderness Laboratory Tests Test 08/05/20 23:42 08/06/20 08:30 08/06/20 15:50 POC Whole Blood Glucose Pending White Blood Count 11.5 K/UL (4.8-10.8) H Red Blood Count 2.94 M/UL (4.70-6.10) L Hemoglobin 9.1 G/DL (14.2-18.0) L Hematocrit 24.9 % (42.0-52.0) L Mean Corpuscular Volume 85 FL (80-99) Mean Corpuscular Hemoglobin 31.0 PG (27.0-31.0) Mean Corpuscular Hemoglobin Concent 36.5 G/DL (32.0-36.0) H Red Cell Distribution Width 14.3 % (11.6-14.8) Platelet Count 123 K/UL (150-450) L Mean Platelet Volume 12.5 FL (6.5-10.1) H Neutrophils (%) (Auto) % (45.0-75.0) Lymphocytes (%) (Auto) % (20.0-45.0) Monocytes (%) (Auto) % (1.0-10.0) Eosinophils (%) (Auto) % (0.0-3.0) Basophils (%) (Auto) % (0.0-2.0) Differential Total Cells Counted 100 Neutrophils % (Manual) 83 % (45-75) H Lymphocytes % (Manual) 8 % (20-45) L Monocytes % (Manual) 6 % (1-10) Eosinophils % (Manual) 1 % (0-3) Basophils % (Manual) 0 % (0-2) Band Neutrophils 2 % (0-8) Platelet Estimate Decreased L Platelet Morphology Normal Anisocytosis 1+ Sodium Level 140 MMOL/L (136-145) Potassium Level 1.9 MMOL/L (3.5-5.1) *L 3.3 MMOL/L (3.5-5.1) #L Chloride Level 101 MMOL/L (98-107) Carbon Dioxide Level 27 MMOL/L (21-32) Anion Gap 11 mmol/L (5-15) Blood Urea Nitrogen 91 mg/dL (7-18) H Creatinine 1.7 MG/DL (0.55-1.30) H Estimat Glomerular Filtration Rate 40.5 mL/min (>60) Glucose Level 127 MG/DL (74-106) H Calcium Level 8.3 MG/DL (8.5-10.1) L Phosphorus Level 6.6 MG/DL (2.5-4.9) H Magnesium Level 2.0 MG/DL (1.8-2.4) Hepatitis A IgM Antibody Pending Hepatitis B Surface Antigen Pending Hepatitis B Core IgM Antibody Pending Hepatitis C Antibody Pending HIV (1&2) Antibody Rapid Negative (NEGATIVE) Plan Problems: (1) Respiratory distress (2) Renal failure Assessment & Plan: plan HD line soon temp hd consent from daughter (3) Metabolic acidosis (4) NSTEMI (non-ST elevated myocardial infarction) (5) Sepsis Assessment & Plan: okay for tf iv fluids vent via trach weaning vent g tube okay decubitus eval done and local care provided labs noted acidosis plan HD cont abx as per ID will follow with recs thank you DAILY ESTIMATED NEEDS: Needs based on Critical care, wound, AUNDREA/ 62.7kg 22-28 kcals/kg [id number] total kcals 0.8-1.25 (increase w/ renal fxn improvement) g protein/kg 50-78 g total protein 20-25 mL/kg 2040-8314 total fluid mLs NUTRITION DIAGNOSIS: Swallowing difficulty R/T respiratory failure as evidenced by trach/vent dep, PEG dep. CURRENT TF: NPO ENTERAL NUTRITION RECOMMENDATIONS: Nepro @ 35ml/hr x 24 hrs to provide 840ml, 1512kcal, 68g prot, 611ml free water * As medically appropriate, initiate Nepro, rec goal rate of 35ml/hr x 24 hrs * HOB over 30 degrees/ water flush per MD ADDITIONAL RECOMMENDATIONS: * Per SNF: HT=68" and SO=690muo -> daily calibrated bedscale wt * Monitor renal fxn and lytes, ability to increase est prot needs * NISS w/ TF -> h/o DM * Probiotics for diarrhea * Wound healing: Add Nephrovite x 1, ZnSO4 220mg QD x 10 days Kenji BID w/ TF Rohit Brand Aug 06, 2020 18:03
[2020-08-06 20:00] VITALS: BP 98/65
--- NOTE | 2020-08-06 20:18 | Neurology Progress Note ---
Interim History Interim History ROS Limited/Unobtainable: Yes Interim History remains lethargic Objective Physical Exam Last Vital Signs Date Time Temp Pulse Resp B/P (MAP) Pulse Ox O2 Delivery O2 Flow Rate FiO2 08/06/20 19:51 30 08/06/20 19:51 Mechanical Ventilator 08/06/20 19:28 109 21 08/06/20 16:00 97.5 147/84 (105) 95 Laboratory Tests Test 08/05/20 23:42 08/06/20 08:30 08/06/20 15:50 POC Whole Blood Glucose Pending White Blood Count 11.5 K/UL (4.8-10.8) H Red Blood Count 2.94 M/UL (4.70-6.10) L Hemoglobin 9.1 G/DL (14.2-18.0) L Hematocrit 24.9 % (42.0-52.0) L Mean Corpuscular Volume 85 FL (80-99) Mean Corpuscular Hemoglobin 31.0 PG (27.0-31.0) Mean Corpuscular Hemoglobin Concent 36.5 G/DL (32.0-36.0) H Red Cell Distribution Width 14.3 % (11.6-14.8) Platelet Count 123 K/UL (150-450) L Mean Platelet Volume 12.5 FL (6.5-10.1) H Neutrophils (%) (Auto) % (45.0-75.0) Lymphocytes (%) (Auto) % (20.0-45.0) Monocytes (%) (Auto) % (1.0-10.0) Eosinophils (%) (Auto) % (0.0-3.0) Basophils (%) (Auto) % (0.0-2.0) Differential Total Cells Counted 100 Neutrophils % (Manual) 83 % (45-75) H Lymphocytes % (Manual) 8 % (20-45) L Monocytes % (Manual) 6 % (1-10) Eosinophils % (Manual) 1 % (0-3) Basophils % (Manual) 0 % (0-2) Band Neutrophils 2 % (0-8) Platelet Estimate Decreased L Platelet Morphology Normal Anisocytosis 1+ Sodium Level 140 MMOL/L (136-145) Potassium Level 1.9 MMOL/L (3.5-5.1) *L 3.3 MMOL/L (3.5-5.1) #L Chloride Level 101 MMOL/L (98-107) Carbon Dioxide Level 27 MMOL/L (21-32) Anion Gap 11 mmol/L (5-15) Blood Urea Nitrogen 91 mg/dL (7-18) H Creatinine 1.7 MG/DL (0.55-1.30) H Estimat Glomerular Filtration Rate 40.5 mL/min (>60) Glucose Level 127 MG/DL (74-106) H Calcium Level 8.3 MG/DL (8.5-10.1) L Phosphorus Level 6.6 MG/DL (2.5-4.9) H Magnesium Level 2.0 MG/DL (1.8-2.4) Hepatitis A IgM Antibody Pending Hepatitis B Surface Antigen Pending Hepatitis B Core IgM Antibody Pending Hepatitis C Antibody Pending HIV (1&2) Antibody Rapid Negative (NEGATIVE) Neurologic Exam Objective trach tachy grimaces to pain lethargic Impression/Recommendations Problems: (1) Respiratory distress (2) Renal failure (3) Metabolic acidosis (4) NSTEMI (non-ST elevated myocardial infarction) (5) Sepsis Diagnostic Impression Encephalopathy, likely metabolic sepsis hx of left thalamic hemorrhage likely from htn icu level map > 65 monitor mental status cont atb fu cultures ok for heparin SC given ich is chronic Pedro Hale MD Aug 06, 2020 20:18
[2020-08-06] MEDS: Dyna-Hex 2% Top Sol 2oz TOPIC SCH (21:59)
[2020-08-06] MEDS: Cefepime HCl 1 GM in D5W 55 ML IVPB SCH (22:05)
[2020-08-07] VITALS: BP 117/72
[2020-08-07 04:00] VITALS: BP 128/85
[2020-08-07] MEDS: Metoclopramide 10mg/2ml Inj IVP PRN (04:38)
[2020-08-07] MEDS: metroNIDAZOLE 500mg tab ORAL SCH ×3 (04:38→21:04)
--- NOTE | 2020-08-07 06:42 | Hematology/Onc Progress Note ---
Assessment/Plan Assessment/Plan ASSESSMENT AND PLAN: # Leukocytosis is due to sepsis, fevers, leukocytosis. Avoid nephrotoxic drugs. --> ABX Continue Zyvox, cefepime, and Flagyl --> iamging has been reviewed --> as per pulm and id recs --> wbc 22-->18-->12->11 # Anemia due to hemodilution --> if lower than 10, get workup --> transfuse prn --> hgb 11-->10-->7.4-->9 # Thrombocytopenia due to underlying infection --> medications have been reviewed --> 186-->127--.105 --> is on hep, monitor --> smear has been reviewed --> hep and hiv neg # Trach, vent. # Dysphagia, on G-tube. 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 # Diabetes. # Hypertension. # Acute renal failure. # GERD. # Dvt ppx heparin sq Appreciate consultation and anil RN Subjective HEENT: Denies: no symptoms, eye pain, blurred vision, tearing, double vision, ear pain, ear discharge, nose pain, nose congestion, throat pain, throat swelling, mouth pain, mouth swelling, other Cardiovascular: Denies: no symptoms, chest pain, edema, irregular heart rate, lightheadedness, palpitations, syncope, other Respiratory: Denies: no symptoms, cough, shortness of breath, SOB with excertion, SOB at rest, sputum, wheezing, other Gastrointestinal/Abdominal: Denies: no symptoms, abdomen distended, abdominal p ain, black stools, tarry stools, blood in stool, constipated, diarrhea, difficulty swallowing, nausea, poor appetite, poor fluid intake, rectal bleeding, vomiting, other Genitourinary: Denies: no symptoms, burning, discharge, frequency, flank pain, hematuria, incontinence, pain, urgency, other Neurologic/Psychiatric: Denies: no symptoms, anxiety, depressed, emotional problems, headache, numbness, paresthesia, pre-existing deficit, seizure, tingling, tremors, weakness, other Endocrine: Denies: no symptoms, excessive sweating, flushing, intolerance to cold, intolerance to heat, increased hunger, increased thirst, increased urine, unexplained weight gain, unexplained weight loss, other Hematologic/Lymphatic: Denies: no symptoms, anemia, easy bleeding, easy bruising, adenopathy, other Allergies: Coded Allergies: No Known Allergies (Unverified , 08/01/20) All Systems: reviewed and negative except above Subjective 08/04 remains on vent, abx, labs reviewed, meds noted 08/06 hd prn, no bleeding,with mota and rectal tube, labs noted 08/07 tolerating gt feeds, no new events overnight, dw rn Objective Objective Current Medications Medications (Trade) Dose Ordered Sig/Maegan Route PRN Reason Start Time Stop Time Status Last Admin Dose Admin Acetaminophen (Tylenol) 650 mg Q4H PRN GT For Pain 08/02/20 15:45 09/01/20 15:44 08/03/20 02:13 Acetaminophen (Tylenol) 650 mg Q4H PRN GT Temp >100.5 08/02/20 15:45 09/01/20 15:44 Calcium Acetate (Phoslo) 1,334 mg TIAC ORAL 08/05/20 11:30 11/03/20 11:29 08/07/20 04:38 Cefepime HCl 1 gm/ Dextrose 55 ml @ 110 mls/hr Q24H IVPB 08/01/20 21:00 08/08/20 20:59 08/06/20 22:05 Chlorhexidine Gluconate (Deisy-Hex 2%) 1 applic BIOTEC TOPIC 08/02/20 21:00 10/31/20 20:59 08/06/20 21:59 Dextrose 1,000 ml @ 0 mls/hr Q0M IV 08/02/20 09:15 09/01/20 09:14 Heparin Sodium (Porcine) (Heparin 5000 units/ml) 5,000 units EVERY 12 HOURS SUBQ 08/02/20 21:00 09/16/20 20:59 08/06/20 22:06 Metoclopramide HCl (Reglan) 10 mg Q6H PRN IVP Nausea & Vomiting 08/05/20 14:15 09/04/20 14:14 08/07/20 04:38 Metoprolol Tartrate (Lopressor) 12.5 mg Q12HR GT 08/02/20 21:00 10/31/20 09:59 08/06/20 09:14 Metronidazole (Flagyl) 500 mg EVERY 8 HOURS ORAL 08/02/20 22:00 08/09/20 21:59 08/07/20 04:38 Pantoprazole (Protonix) 40 mg DAILY IVP 08/03/20 09:00 09/02/20 08:59 08/06/20 09:14 Sevelamer Carbonate (Renvela) 800 mg THREE TIMES A DAY NG 08/04/20 13:00 11/02/20 12:59 08/06/20 17:21 Last 24 Hour Vital Signs Date Time Temp Pulse Resp B/P (MAP) Pulse Ox O2 Delivery O2 Flow Rate FiO2 08/07/20 04:00 90 08/07/20 04:00 98.1 89 17 128/85 (99) 100 08/07/20 03:55 Mechanical Ventilator 08/07/20 03:55 30 08/07/20 00:00 98.2 94 16 117/72 (87) 100 08/06/20 23:42 30 08/06/20 23:41 Mechanical Ventilator 08/06/20 23:20 91 16 30 08/06/20 21:39 106 98/65 08/06/20 20:00 98.1 106 16 98/65 (76) 99 08/06/20 20:00 110 08/06/20 19:51 30 08/06/20 19:51 Mechanical Ventilator 08/06/20 19:28 109 21 30 08/06/20 16:00 Mechanical Ventilator 08/06/20 16:00 30 08/06/20 16:00 97.5 100 19 147/84 (105) 95 08/06/20 15:38 100 08/06/20 15:13 99 18 30 08/06/20 12:00 Mechanical Ventilator 08/06/20 12:00 97.9 88 17 128/74 (92) 100 08/06/20 12:00 30 08/06/20 11:36 87 08/06/20 11:10 86 19 30 08/06/20 09:14 96 110/72 08/06/20 08:00 97.5 89 17 130/86 (101) 100 08/06/20 08:00 Mechanical Ventilator 08/06/20 08:00 30 08/06/20 07:51 93 08/06/20 07:27 96 20 30 08/06/20 04:00 30 08/06/20 04:00 Mechanical Ventilator 08/06/20 04:00 88 08/06/20 04:00 98.8 90 20 130/80 (97) 98 08/06/20 01:38 87 20 30 08/06/20 00:00 98.7 92 20 133/88 (103) 98 08/06/20 00:00 Mechanical Ventilator 08/06/20 00:00 89 08/06/20 00:00 30 08/05/20 21:00 87 93/68 08/05/20 20:00 Mechanical Ventilator 08/05/20 20:00 87 08/05/20 20:00 99.1 87 18 93/68 (76) 100 08/05/20 20:00 30 08/05/20 19:50 82 16 30 08/05/20 16:00 30 08/05/20 16:00 97.1 78 18 149/83 (105) 100 08/05/20 16:00 Mechanical Ventilator 08/05/20 16:00 83 08/05/20 13:30 78 16 30 08/05/20 12:00 Mechanical Ventilator 08/05/20 12:00 30 08/05/20 12:00 97.0 87 20 132/95 (107) 100 08/05/20 12:00 104 08/05/20 10:11 85 99/62 08/05/20 08:00 84 08/05/20 08:00 30 08/05/20 08:00 Mechanical Ventilator 08/05/20 08:00 98.7 88 20 99/62 (74) 100 08/05/20 07:14 108 21 30 Intake and Output 08/06/20 08/07/20 19:00 07:00 Intake Total 30 ml 465 ml Output Total 600 ml Balance 30 ml -135 ml Intake Free Water 50 ml IV Total 55 ml Tube Feeding 30 ml 360 ml Output Urine Total 600 ml # Bowel Movements 100 Labs Test 08/04/20 12:05 08/05/20 07:20 08/05/20 09:15 08/05/20 23:42 Arterial Blood pH 7.559 (7.350-7.450) Arterial Blood Partial Pressure CO2 24.6 mmHg (35.0-45.0) Arterial Blood Partial Pressure O2 403.6 mmHg (75.0-100.0) Arterial Blood HCO3 21.5 mmol/L (22.0-26.0) Arterial Blood Oxygen Saturation 98.4 % (95-100) Arterial Blood Base Excess -0.3 (-2-2) Russ Test Positive Sodium Level 140 MMOL/L (136-145) Potassium Level 2.1 MMOL/L (3.5-5.1) Chloride Level 100 MMOL/L (98-107) Carbon Dioxide Level 28 MMOL/L (21-32) Anion Gap 11 mmol/L (5-15) Blood Urea Nitrogen 100 mg/dL (7-18) Creatinine 1.7 MG/DL (0.55-1.30) Estimat Glomerular Filtration Rate 40.5 mL/min (>60) Glucose Level 126 MG/DL (74-106) Calcium Level 7.9 MG/DL (8.5-10.1) Phosphorus Level 6.5 MG/DL (2.5-4.9) Magnesium Level 1.9 MG/DL (1.8-2.4) White Blood Count 11.3 K/UL (4.8-10.8) Red Blood Count 3.09 M/UL (4.70-6.10) Hemoglobin 9.4 G/DL (14.2-18.0) Hematocrit 25.7 % (42.0-52.0) Mean Corpuscular Volume 83 FL (80-99) Mean Corpuscular Hemoglobin 30.4 PG (27.0-31.0) Mean Corpuscular Hemoglobin Concent 36.5 G/DL (32.0-36.0) Red Cell Distribution Width 15.6 % (11.6-14.8) Platelet Count 105 K/UL (150-450) Mean Platelet Volume 14.2 FL (6.5-10.1) Neutrophils (%) (Auto) 83.4 % (45.0-75.0) Lymphocytes (%) (Auto) 9.9 % (20.0-45.0) Monocytes (%) (Auto) 5.9 % (1.0-10.0) Eosinophils (%) (Auto) 0.0 % (0.0-3.0) Basophils (%) (Auto) 0.7 % (0.0-2.0) Test 08/06/20 08:30 08/06/20 15:50 White Blood Count 11.5 K/UL (4.8-10.8) Red Blood Count 2.94 M/UL (4.70-6.10) Hemoglobin 9.1 G/DL (14.2-18.0) Hematocrit 24.9 % (42.0-52.0) Mean Corpuscular Volume 85 FL (80-99) Mean Corpuscular Hemoglobin 31.0 PG (27.0-31.0) Mean Corpuscular Hemoglobin Concent 36.5 G/DL (32.0-36.0) Red Cell Distribution Width 14.3 % (11.6-14.8) Platelet Count 123 K/UL (150-450) Mean Platelet Volume 12.5 FL (6.5-10.1) Neutrophils (%) (Auto) % (45.0-75.0) Lymphocytes (%) (Auto) % (20.0-45.0) Monocytes (%) (Auto) % (1.0-10.0) Eosinophils (%) (Auto) % (0.0-3.0) Basophils (%) (Auto) % (0.0-2.0) Differential Total Cells Counted 100 Neutrophils % (Manual) 83 % (45-75) Lymphocytes % (Manual) 8 % (20-45) Monocytes % (Manual) 6 % (1-10) Eosinophils % (Manual) 1 % (0-3) Basophils % (Manual) 0 % (0-2) Band Neutrophils 2 % (0-8) Platelet Estimate Decreased Platelet Morphology Normal Anisocytosis 1+ Sodium Level 140 MMOL/L (136-145) Potassium Level 1.9 MMOL/L (3.5-5.1) 3.3 MMOL/L (3.5-5.1) Chloride Level 101 MMOL/L (98-107) Carbon Dioxide Level 27 MMOL/L (21-32) Anion Gap 11 mmol/L (5-15) Blood Urea Nitrogen 91 mg/dL (7-18) Creatinine 1.7 MG/DL (0.55-1.30) Estimat Glomerular Filtration Rate 40.5 mL/min (>60) Glucose Level 127 MG/DL (74-106) Calcium Level 8.3 MG/DL (8.5-10.1) Phosphorus Level 6.6 MG/DL (2.5-4.9) Magnesium Level 2.0 MG/DL (1.8-2.4) HIV (1&2) Antibody Rapid Negative (NEGATIVE) Height (Feet): 5 Height (Inches): 7.00 Weight (Pounds): 175 Objective Physical Exam General Appearance: lethargic Lines, tubes and drains: trach+++ vent++++ HEENT: normocephalic, atraumatic, mucous membranes moist Neck: normal alignment Respiratory/Chest: rhonchi - bilaterally Cardiovascular/Chest: normal peripheral pulses, regular rhythm Abdomen: soft, no mass, feeding tube Extremities: no edema, no cyanosis Skin Exam: normal pigmentation, warm/dry Neurologic: unresponsiveness Karthik Mercedes MD Aug 07, 2020 06:42
[2020-08-07 08:00] VITALS: BP 123/89
[2020-08-07] MEDS: Pantoprazole Inj IVP SCH (08:17)
[2020-08-07] MEDS: Renvela 800mg Pkt NG SCH ×3 (08:17→18:17)
[2020-08-07] MEDS: Metoprolol Tartrate 12.5mg TAB GT SCH ×2 (08:18→21:03)
[2020-08-07] MEDS: Heparin 5000 units/ml inj SUBQ SCH ×2 (08:18→21:00)
[2020-08-07 09:20] LABS: CALCIUM 8.3 MG/DL (8.5-10.1); CREATININE 1.7 MG/DL (0.55-1.30); POTASSIUM 3.3 MMOL/L (3.5-5.1)
[2020-08-07] MEDS ORDERED: Heparin1,000 units/500ml Premix(Conc:2 units/ml) IV PRN (11:45)
[2020-08-07] MEDS ORDERED: Lidocaine 1% Plain 30 ml INJ PRN (11:45)
[2020-08-07 12:00] VITALS: BP 138/91
--- NOTE | 2020-08-07 13:28 | Cardiac Electrophysiology PN ---
Assessment/Plan Assessment/Plan 1. Troponin elevation. Levels are coming down at 0.8 to 0.5. Due to renal failure with BUN of 343, creatinine of 4.1 as well as sepsis with white count of 22,000. His EKG also shows sinus rhythm with inferolateral ischemia. On Lopressor 12.5 bid. 2. Shortness of breath with respiratory failure, status post tracheostomy, on the ventilator with 30% FiO2. 3. Dysphagia, status post PEG placement. 4. Acute renal failure with BUN of 343, creatinine of 4.1. S/P Nicholas catheter and first HD on 08/03 5. Diabetes. 6. History of left thalamic hemorrhage. Subjective Subjective S/P Right groin Nicholas catheter placement by Dr. Brand and HD , on 30% Fio2 via trach Objective Last 24 Hour Vital Signs Date Time Temp Pulse Resp B/P (MAP) Pulse Ox O2 Delivery O2 Flow Rate FiO2 08/07/20 12:00 Mechanical Ventilator 08/07/20 12:00 91 08/07/20 12:00 97.8 96 18 138/91 (107) 100 08/07/20 12:00 30 08/07/20 08:18 93 123/89 08/07/20 08:00 98 08/07/20 08:00 30 08/07/20 08:00 97.8 93 16 123/89 (100) 100 08/07/20 08:00 Mechanical Ventilator 08/07/20 04:00 90 08/07/20 04:00 98.1 89 17 128/85 (99) 100 08/07/20 03:55 Mechanical Ventilator 08/07/20 03:55 30 08/07/20 00:00 98.2 94 16 117/72 (87) 100 08/06/20 23:42 30 08/06/20 23:41 Mechanical Ventilator 08/06/20 23:20 91 16 30 08/06/20 21:39 106 98/65 08/06/20 20:00 98.1 106 16 98/65 (76) 99 08/06/20 20:00 110 08/06/20 19:51 30 08/06/20 19:51 Mechanical Ventilator 08/06/20 19:28 109 21 30 08/06/20 16:00 Mechanical Ventilator 08/06/20 16:00 30 08/06/20 16:00 97.5 100 19 147/84 (105) 95 08/06/20 15:38 100 08/06/20 15:13 99 18 30 Intake and Output 08/06/20 08/07/20 19:00 07:00 Intake Total 30 ml 465 ml Output Total 600 ml Balance 30 ml -135 ml Intake Free Water 50 ml IV Total 55 ml Tube Feeding 30 ml 360 ml Output Urine Total 600 ml # Bowel Movements 100 Laboratory Tests Test 08/06/20 15:50 08/07/20 08:27 Potassium Level 3.3 MMOL/L (3.5-5.1) #L 3.3 MMOL/L (3.5-5.1) L Sodium Level 143 MMOL/L (136-145) Chloride Level 106 MMOL/L (98-107) Carbon Dioxide Level 28 MMOL/L (21-32) Anion Gap 9 mmol/L (5-15) Blood Urea Nitrogen 84 mg/dL (7-18) H Creatinine 1.7 MG/DL (0.55-1.30) H Estimat Glomerular Filtration Rate 40.5 mL/min (>60) Glucose Level 170 MG/DL (74-106) H Calcium Level 8.3 MG/DL (8.5-10.1) L Objective HEAD AND NECK: Status post tracheostomy with no JVD. LUNGS: Coarse rhonchi. CARDIOVASCULAR: Regular S1 and S2 with no gallop. ABDOMEN: Status post G-tube. EXTREMITIES: No pitting edema. Gregorio Mari MD Aug 07, 2020 13:28
--- NOTE | 2020-08-07 15:09 | General Progress Note ---
Subjective Date patient seen: Aug 07, 2020 ROS Limited/Unobtainable: Yes Allergies: Coded Allergies: No Known Allergies (Unverified , 08/01/20) Subjective Potassium remains low this AM, but improving compared to yesterday. Plan for changing dialysis line to IJ today. Oxygenation stable. Not verbalizing, poor mental status. Objective Last 24 Hour Vital Signs Date Time Temp Pulse Resp B/P (MAP) Pulse Ox O2 Delivery O2 Flow Rate FiO2 08/07/20 12:00 Mechanical Ventilator 08/07/20 12:00 91 08/07/20 12:00 97.8 96 18 138/91 (107) 100 08/07/20 12:00 30 08/07/20 11:08 72 19 30 08/07/20 08:18 93 123/89 08/07/20 08:00 98 08/07/20 08:00 30 08/07/20 08:00 97.8 93 16 123/89 (100) 100 08/07/20 08:00 Mechanical Ventilator 08/07/20 07:11 88 16 30 08/07/20 04:00 90 08/07/20 04:00 98.1 89 17 128/85 (99) 100 08/07/20 03:55 Mechanical Ventilator 08/07/20 03:55 30 08/07/20 00:00 98.2 94 16 117/72 (87) 100 08/06/20 23:42 30 08/06/20 23:41 Mechanical Ventilator 08/06/20 23:20 91 16 30 08/06/20 21:39 106 98/65 08/06/20 20:00 98.1 106 16 98/65 (76) 99 08/06/20 20:00 110 08/06/20 19:51 30 08/06/20 19:51 Mechanical Ventilator 08/06/20 19:28 109 21 30 08/06/20 16:00 Mechanical Ventilator 08/06/20 16:00 30 08/06/20 16:00 97.5 100 19 147/84 (105) 95 08/06/20 15:38 100 08/06/20 15:13 99 18 30 Intake and Output 08/06/20 08/07/20 19:00 07:00 Intake Total 30 ml 465 ml Output Total 600 ml Balance 30 ml -135 ml Intake Free Water 50 ml IV Total 55 ml Tube Feeding 30 ml 360 ml Output Urine Total 600 ml # Bowel Movements 100 Laboratory Tests 08/06/20 15:50: Potassium Level 3.3#L 08/07/20 08:27: Potassium Level 3.3L, Sodium Level 143, Chloride Level 106, Carbon Dioxide Level 28, Anion Gap 9, Blood Urea Nitrogen 84H, Creatinine 1.7H, Estimat Glomerular Filtration Rate 40.5, Glucose Level 170H, Calcium Level 8.3L Height (Feet): 5 Height (Inches): 7.00 Weight (Pounds): 175 Objective General Appearance: lethargic, opens eyes but does not track or respond to verbal cues Lines, tubes and drains: trach, HD line in place HEENT: normocephalic, atraumatic, mucous membranes moist Neck: normal alignment Respiratory/Chest: rhonchi - bilaterally Cardiovascular/Chest: normal peripheral pulses, regular rhythm Abdomen: soft, no mass, feeding tube Extremities: no edema, no cyanosis Skin Exam: normal pigmentation, warm/dry Neurologic: unresponsiveness Assessment/Plan Assessment/Plan: #Sepsis - unclear source, cultures NTD. WBC still improving. #Metabolic acidosis - likely from severe uremia - improving #NSTEMI - may be demand ischemia in sepsis #Acute kidney injury - may be sepsis related. - s/p CTX, zosyn, IVF in ED - avoid nephrotoxic drugs - HD per nephro - cefepime - low threshold to broaden antibiotics - f/u cultures - NTD - IVF - trend troponin - ID consult Dr. Stone - Nephro consult Dr. Sherman - Cardiology consult Dr. Mari #Acute on chronic respiratory failure - stable on FiO2 30% #s/p tracheostomy #PEG status - Ventilator dependent - transferred out of ICU 08/04/2020 - CXR clear, low suspicion for pneumonia - Covid negative - pulmonary consult Dr. Nunez - tube feed - nutrition consult #Hx of thalamic infarct #Uremic encephalopathy? - nonverbal, lethargic currently - neurology consult Dr. Hale #Diabetes - ISS Fluids: IVF Diet: tube feed DVT ppx: heparin Code: FULL I spent 35 minutes on this patient's case, and 20 minutes were dedicated to counseling and/or care coordination. Discussed with cardiology and pulmonology and ID consultants. Time of note may not reflect time of encounter Davidson Guzmán M.D. Aug 07, 2020 15:09
--- NOTE | 2020-08-07 15:23 | Brief Operative Note ---
Immediate Post Operative Note Operative Note Pre-op Diagnosis: renal failure Procedure: nikki R IJV Post-op Diagnosis: same as pre-op Surgeon: Davian Jiménez Anesthesia: local Specimen: none Complications: none Fluids: none Implant(s) used?: No Lee Jiménez MD Aug 07, 2020 15:23
--- NOTE | 2020-08-07 15:42 | Infectious Diseases Prog Note ---
Assessment/Plan Assessment/Plan ASSESSMENT AND PLAN: 1. sepsis, fevers and leukocytosis, ? source - cefepime and flagyl - day # 6/7 - monitor labs, cultures negative, c.diff. - negative - leukocytosis and fevers improved 2. Trach, vent. 3. Dysphagia, on G-tube. 4. 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 5. Diabetes. 6. Hypertension. 7. Blood sugar and blood pressure treatment per primary care team. 8. Acute renal failure. 9. Anemia. 10. Respiratory failure. 11. GERD. 12. Vent dependency. 13. No allergies. 14. Social history is negative. 15. Family history noncontributory. 16. MAR was noted. 17. Case was discussed with RN. Subjective Constitutional: Reports: other - trach and vent ; Denies: fever HEENT: Reports: congestion Respiratory: Reports: shortness of breath Cardiovascular: Reports: other - no pressors Gastrointestinal/Abdominal: Denies: nausea, vomiting Genitourinary: Denies: dysuria Neurologic: Reports: weakness, other - lethargic Psychiatric: Denies: depression Skin: Denies: rash Hematologic: Denies: bleeding Musculoskeletal: Denies: pain Allergies: Coded Allergies: No Known Allergies (Unverified , 08/01/20) Objective Last 24 Hour Vital Signs Date Time Temp Pulse Resp B/P (MAP) Pulse Ox O2 Delivery O2 Flow Rate FiO2 08/07/20 12:00 Mechanical Ventilator 08/07/20 12:00 91 08/07/20 12:00 97.8 96 18 138/91 (107) 100 08/07/20 12:00 30 08/07/20 11:08 72 19 30 08/07/20 08:18 93 123/89 08/07/20 08:00 98 08/07/20 08:00 30 08/07/20 08:00 97.8 93 16 123/89 (100) 100 08/07/20 08:00 Mechanical Ventilator 08/07/20 07:11 88 16 30 08/07/20 04:00 90 08/07/20 04:00 98.1 89 17 128/85 (99) 100 08/07/20 03:55 Mechanical Ventilator 08/07/20 03:55 30 08/07/20 00:00 98.2 94 16 117/72 (87) 100 08/06/20 23:42 30 12/27/20 23:41 Mechanical Ventilator 08/06/20 23:20 91 16 30 08/06/20 21:39 106 98/65 08/06/20 20:00 98.1 106 16 98/65 (76) 99 08/06/20 20:00 110 08/06/20 19:51 30 08/06/20 19:51 Mechanical Ventilator 08/06/20 19:28 109 21 30 08/06/20 16:00 Mechanical Ventilator 08/06/20 16:00 30 08/06/20 16:00 97.5 100 19 147/84 (105) 95 08/06/20 15:38 100 Height (Feet): 5 Height (Inches): 7.00 Weight (Pounds): 175 General Appearance: other - + trach and vent HEENT: normocephalic, atraumatic, anicteric, no JVD, status post trach Respiratory/Chest: crackles/rales, rhonchi - bilaterally Cardiovascular: normal rate, regular rhythm Abdomen: normal bowel sounds, soft, non tender, no organomegaly, non distended Genitourinary: other - + mota Extremities: no cyanosis Skin: no rash Neurologic/Psychiatric: motor weakness, other - weak, on vent Lymphatic: no neck adenopathy Musculoskeletal: no effusion Chest x-ray - 08/03/20 - Procedure: XRAY Chest 1v Indication: Shortness of breath Technique: One view of the chest Comparison: 08/01/2020 Findings: Lungs and pleural spaces are clear. Heart size is normal. Tracheostomy again demonstrated. Findings are unchanged Impression: No acute process Microbiology Date/Time Source Procedure Growth Status 08/02/20 05:00 Rectum VRE Culture - Final NO VANCOMYCIN RESISTANT ENTEROCOCCUS ... Complete 08/02/20 05:00 Stool Clostridium difficile Toxin Assay - Final Complete 08/02/20 05:00 Nasal Nares MRSA Culture - Final NO METHICILLIN RESISTANT STAPH AUREUS... Complete 08/01/20 23:00 Straight Cath Urine Culture - Final NO GROWTH AFTER 48 HOURS Complete 08/01/20 13:10 Blood Blood Culture - Preliminary NO GROWTH AFTER 4 DAYS Resulted Labs Test 08/05/20 07:20 08/05/20 09:15 08/05/20 23:42 08/06/20 08:30 Sodium Level 140 MMOL/L (136-145) 140 MMOL/L (136-145) Potassium Level 2.1 MMOL/L (3.5-5.1) 1.9 MMOL/L (3.5-5.1) Chloride Level 100 MMOL/L (98-107) 101 MMOL/L (98-107) Carbon Dioxide Level 28 MMOL/L (21-32) 27 MMOL/L (21-32) Anion Gap 11 mmol/L (5-15) 11 mmol/L (5-15) Blood Urea Nitrogen 100 mg/dL (7-18) 91 mg/dL (7-18) Creatinine 1.7 MG/DL (0.55-1.30) 1.7 MG/DL (0.55-1.30) Estimat Glomerular Filtration Rate 40.5 mL/min (>60) 40.5 mL/min (>60) Glucose Level 126 MG/DL (74-106) 127 MG/DL (74-106) Calcium Level 7.9 MG/DL (8.5-10.1) 8.3 MG/DL (8.5-10.1) Phosphorus Level 6.5 MG/DL (2.5-4.9) 6.6 MG/DL (2.5-4.9) Magnesium Level 1.9 MG/DL (1.8-2.4) 2.0 MG/DL (1.8-2.4) White Blood Count 11.3 K/UL (4.8-10.8) 11.5 K/UL (4.8-10.8) Red Blood Count 3.09 M/UL (4.70-6.10) 2.94 M/UL (4.70-6.10) Hemoglobin 9.4 G/DL (14.2-18.0) 9.1 G/DL (14.2-18.0) Hematocrit 25.7 % (42.0-52.0) 24.9 % (42.0-52.0) Mean Corpuscular Volume 83 FL (80-99) 85 FL (80-99) Mean Corpuscular Hemoglobin 30.4 PG (27.0-31.0) 31.0 PG (27.0-31.0) Mean Corpuscular Hemoglobin Concent 36.5 G/DL (32.0-36.0) 36.5 G/DL (32.0-36.0) Red Cell Distribution Width 15.6 % (11.6-14.8) 14.3 % (11.6-14.8) Platelet Count 105 K/UL (150-450) 123 K/UL (150-450) Mean Platelet Volume 14.2 FL (6.5-10.1) 12.5 FL (6.5-10.1) Neutrophils (%) (Auto) 83.4 % (45.0-75.0) % (45.0-75.0) Lymphocytes (%) (Auto) 9.9 % (20.0-45.0) % (20.0-45.0) Monocytes (%) (Auto) 5.9 % (1.0-10.0) % (1.0-10.0) Eosinophils (%) (Auto) 0.0 % (0.0-3.0) % (0.0-3.0) Basophils (%) (Auto) 0.7 % (0.0-2.0) % (0.0-2.0) Differential Total Cells Counted 100 Neutrophils % (Manual) 83 % (45-75) Lymphocytes % (Manual) 8 % (20-45) Monocytes % (Manual) 6 % (1-10) Eosinophils % (Manual) 1 % (0-3) Basophils % (Manual) 0 % (0-2) Band Neutrophils 2 % (0-8) Platelet Estimate Decreased Platelet Morphology Normal Anisocytosis 1+ Hepatitis A IgM Antibody Negative (Negative) Hepatitis B Surface Antigen Negative (Negative) Hepatitis B Core IgM Antibody Negative (Negative) Hepatitis C Antibody <0.1 s/co ratio HIV (1&2) Antibody Rapid Negative (NEGATIVE) Test 08/06/20 15:50 08/07/20 08:27 Potassium Level 3.3 MMOL/L (3.5-5.1) 3.3 MMOL/L (3.5-5.1) Sodium Level 143 MMOL/L (136-145) Chloride Level 106 MMOL/L (98-107) Carbon Dioxide Level 28 MMOL/L (21-32) Anion Gap 9 mmol/L (5-15) Blood Urea Nitrogen 84 mg/dL (7-18) Creatinine 1.7 MG/DL (0.55-1.30) Estimat Glomerular Filtration Rate 40.5 mL/min (>60) Glucose Level 170 MG/DL (74-106) Calcium Level 8.3 MG/DL (8.5-10.1) Laboratory Tests Test 08/06/20 15:50 08/07/20 08:27 Potassium Level 3.3 MMOL/L (3.5-5.1) #L 3.3 MMOL/L (3.5-5.1) L Sodium Level 143 MMOL/L (136-145) Chloride Level 106 MMOL/L (98-107) Carbon Dioxide Level 28 MMOL/L (21-32) Anion Gap 9 mmol/L (5-15) Blood Urea Nitrogen 84 mg/dL (7-18) H Creatinine 1.7 MG/DL (0.55-1.30) H Estimat Glomerular Filtration Rate 40.5 mL/min (>60) Glucose Level 170 MG/DL (74-106) H Calcium Level 8.3 MG/DL (8.5-10.1) L Current Medications Medications (Trade) Dose Ordered Sig/Maegan Route PRN Reason Start Time Stop Time Status Last Admin Dose Admin Acetaminophen (Tylenol) 650 mg Q4H PRN GT For Pain 08/02/20 15:45 09/01/20 15:44 08/03/20 02:13 Acetaminophen (Tylenol) 650 mg Q4H PRN GT Temp >100.5 08/02/20 15:45 09/01/20 15:44 Calcium Acetate (Phoslo) 1,334 mg TIAC ORAL 08/05/20 11:30 11/03/20 11:29 08/07/20 11:19 Cefepime HCl 1 gm/ Dextrose 55 ml @ 110 mls/hr Q24H IVPB 08/01/20 21:00 08/08/20 20:59 08/06/20 22:05 Chlorhexidine Gluconate (Deisy-Hex 2%) 1 applic BIOTEC TOPIC 08/02/20 21:00 10/31/20 20:59 08/06/20 21:59 Dextrose 1,000 ml @ 0 mls/hr Q0M IV 08/02/20 09:15 09/01/20 09:14 Heparin Sodium (Porcine) (Heparin 5000 units/ml) 5,000 units EVERY 12 HOURS SUBQ 08/02/20 21:00 09/16/20 20:59 08/06/20 22:06 Heparin Sodium/ Sodium Chloride (Heparin 1000 units/500ml Premix) 1,000 unit ONCE PRN IV picc line placement 08/07/20 11:45 08/09/20 11:44 Lidocaine HCl (Xylocaine 1% 30ml) 30 ml ONCE PRN INJ picc line placement 08/07/20 11:45 08/09/20 11:44 Metoclopramide HCl (Reglan) 10 mg Q6H PRN IVP Nausea & Vomiting 08/05/20 14:15 09/04/20 14:14 08/07/20 04:38 Metoprolol Tartrate (Lopressor) 12.5 mg Q12HR GT 08/02/20 21:00 10/31/20 09:59 08/06/20 09:14 Metronidazole (Flagyl) 500 mg EVERY 8 HOURS ORAL 08/02/20 22:00 08/09/20 21:59 08/07/20 13:13 Pantoprazole (Protonix) 40 mg DAILY IVP 08/03/20 09:00 09/02/20 08:59 08/07/20 08:17 Sevelamer Carbonate (Renvela) 800 mg THREE TIMES A DAY NG 08/04/20 13:00 11/02/20 12:59 08/07/20 13:13 Calderon Vazquez MD Aug 07, 2020 15:42
--- NOTE | 2020-08-07 15:47 | Diagnostic Imaging Report ---
Indication: These dialysis access Technique: Procedure performed at bedside. Procedural timeout performed. Total sterile technique, including sterile probe cover and sterile gel, sterile gloves, hand hygiene, hat, mask, sterile gown, large sterile drape, and preparation with 2% chlorhexidine utilized. Local anesthesia with 1% lidocaine. Ultrasound reveals patent compressible right internal jugular vein. Under real-time ultrasound guidance with real-time visualization of the needle entry into the vein, puncture right internal jugular vein using 18-gauge needle, passage 0.035 guidewire, over which was passed serial dilators and then a 13 [place] 15 cm triple-lumen temporary dialysis catheter. Guidewire was removed. Catheter ports were aspirated and flushed. The catheter was fixed to the skin. Patient tolerated procedure well. A chest x-ray was obtained, documents catheter tip position at the mid superior vena cava. Comparison: none Findings: As above Impression: Successful bedside placement of right transjugular temporary dialysis catheter, as described.
[2020-08-07 16:00] VITALS: BP 139/91
--- NOTE | 2020-08-07 16:24 | Pulmonology Progress Note ---
Subjective ROS Limited/Unobtainable: Yes Interval Events: No new events Constitutional: Reports: other - trach and vent ; Denies: fever HEENT: Repors: no symptoms Respiratory: Reports: no symptoms Cardiovascular: Reports: no symptoms Gastrointestinal/Abdominal: Denies: nausea, vomiting Psychiatric: Denies: depression Skin: Denies: rash Musculoskeletal: Denies: pain Allergies: Coded Allergies: No Known Allergies (Unverified , 08/01/20) All Systems: reviewed and negative except above Objective Last 24 Hour Vital Signs Date Time Temp Pulse Resp B/P (MAP) Pulse Ox O2 Delivery O2 Flow Rate FiO2 08/07/20 12:00 Mechanical Ventilator 08/07/20 12:00 91 08/07/20 12:00 97.8 96 18 138/91 (107) 100 08/07/20 12:00 30 08/07/20 11:08 72 19 30 08/07/20 08:18 93 123/89 08/07/20 08:00 98 08/07/20 08:00 30 08/07/20 08:00 97.8 93 16 123/89 (100) 100 08/07/20 08:00 Mechanical Ventilator 08/07/20 07:11 88 16 30 08/07/20 04:00 90 08/07/20 04:00 98.1 89 17 128/85 (99) 100 08/07/20 03:55 Mechanical Ventilator 08/07/20 03:55 30 08/07/20 00:00 98.2 94 16 117/72 (87) 100 08/06/20 23:42 30 08/06/20 23:41 Mechanical Ventilator 08/06/20 23:20 91 16 30 08/06/20 21:39 106 98/65 08/06/20 20:00 98.1 106 16 98/65 (76) 99 08/06/20 20:00 110 08/06/20 19:51 30 08/06/20 19:51 Mechanical Ventilator 08/06/20 19:28 109 21 30 Intake and Output 08/06/20 08/07/20 19:00 07:00 Intake Total 30 ml 465 ml Output Total 600 ml Balance 30 ml -135 ml Intake Free Water 50 ml IV Total 55 ml Tube Feeding 30 ml 360 ml Output Urine Total 600 ml # Bowel Movements 100 General Appearance: WD/WN HEENT: normocephalic, status post trach Respiratory: chest wall non-tender Cardiovascular: normal peripheral pulses, normal rate Abdomen: normal bowel sounds Laboratory Tests 08/07/20 08:27: Sodium Level 143, Potassium Level 3.3L, Chloride Level 106, Carbon Dioxide Level 28, Anion Gap 9, Blood Urea Nitrogen 84H, Creatinine 1.7H, Estimat Glomerular Filtration Rate 40.5, Glucose Level 170H, Calcium Level 8.3L Current Medications Medications (Trade) Dose Ordered Sig/Maegan Route PRN Reason Start Time Stop Time Status Last Admin Dose Admin Acetaminophen (Tylenol) 650 mg Q4H PRN GT For Pain 08/02/20 15:45 09/01/20 15:44 08/03/20 02:13 Acetaminophen (Tylenol) 650 mg Q4H PRN GT Temp >100.5 08/02/20 15:45 09/01/20 15:44 Calcium Acetate (Phoslo) 1,334 mg TIAC ORAL 08/05/20 11:30 11/03/20 11:29 08/07/20 11:19 Cefepime HCl 1 gm/ Dextrose 55 ml @ 110 mls/hr Q24H IVPB 08/01/20 21:00 08/08/20 20:59 08/06/20 22:05 Chlorhexidine Gluconate (Deisy-Hex 2%) 1 applic BIOTEC TOPIC 08/02/20 21:00 10/31/20 20:59 08/06/20 21:59 Dextrose 1,000 ml @ 0 mls/hr Q0M IV 08/02/20 09:15 09/01/20 09:14 Heparin Sodium (Porcine) (Heparin 5000 units/ml) 5,000 units EVERY 12 HOURS SUBQ 08/02/20 21:00 09/16/20 20:59 08/06/20 22:06 Heparin Sodium/ Sodium Chloride (Heparin 1000 units/500ml Premix) 1,000 unit ONCE PRN IV picc line placement 08/07/20 11:45 08/09/20 11:44 Lidocaine HCl (Xylocaine 1% 30ml) 30 ml ONCE PRN INJ picc line placement 08/07/20 11:45 08/09/20 11:44 Metoclopramide HCl (Reglan) 10 mg Q6H PRN IVP Nausea & Vomiting 08/05/20 14:15 09/04/20 14:14 08/07/20 04:38 Metoprolol Tartrate (Lopressor) 12.5 mg Q12HR GT 08/02/20 21:00 10/31/20 09:59 08/06/20 09:14 Metronidazole (Flagyl) 500 mg EVERY 8 HOURS ORAL 08/02/20 22:00 08/09/20 21:59 08/07/20 13:13 Pantoprazole (Protonix) 40 mg DAILY IVP 08/03/20 09:00 09/02/20 08:59 08/07/20 08:17 Potassium Chloride 100 ml @ 100 mls/hr Q1H IVPB 08/07/20 16:15 08/07/20 18:14 Sevelamer Carbonate (Renvela) 800 mg THREE TIMES A DAY NG 08/04/20 13:00 11/02/20 12:59 08/07/20 13:13 Assessment/Plan Assessment/Plan IMPRESSION: 1. Chronic respiratory failure. Chronic tracheostomy 2. Metabolic acidosis. On hemodialysis 3. Renal failure. HD per renal 4. Leukocytosis. 5. Sepsis. Source unclear; C dif negative; CXR clear DISCUSSION: Agree with broad spectrum antibiotics. I will continue AC mode. Currently FiO2 30%; PEEP 5 Discontinued bicarbonate supplementation. Noted plans for HD again today. Potassium supplementation per nephrology Hemodynamically stable I will follow carefully. Jeromy Ryan Omar Syed MD Aug 07, 2020 16:24
--- NOTE | 2020-08-07 17:17 | Surgery Progress Note ---
Surgery Progress Note Subjective Procedure Performed right femoral temporary hemodialysis catheter insertion Additional Comments non nasra HD cath wbc stable no n/v afebrile improving slowly Objective Last 24 Hour Vital Signs Date Time Temp Pulse Resp B/P (MAP) Pulse Ox O2 Delivery O2 Flow Rate FiO2 08/07/20 16:00 98.1 97 16 139/91 (107) 100 08/07/20 16:00 30 08/07/20 16:00 89 08/07/20 16:00 Mechanical Ventilator 08/07/20 12:00 Mechanical Ventilator 08/07/20 12:00 91 08/07/20 12:00 97.8 96 18 138/91 (107) 100 08/07/20 12:00 30 08/07/20 11:08 72 19 30 08/07/20 08:18 93 123/89 08/07/20 08:00 98 08/07/20 08:00 30 08/07/20 08:00 97.8 93 16 123/89 (100) 100 08/07/20 08:00 Mechanical Ventilator 08/07/20 07:11 88 16 30 08/07/20 04:00 90 08/07/20 04:00 98.1 89 17 128/85 (99) 100 08/07/20 03:55 Mechanical Ventilator 08/07/20 03:55 30 08/07/20 00:00 98.2 94 16 117/72 (87) 100 08/06/20 23:42 30 08/06/20 23:41 Mechanical Ventilator 08/06/20 23:20 91 16 30 08/06/20 21:39 106 98/65 08/06/20 20:00 98.1 106 16 98/65 (76) 99 08/06/20 20:00 110 08/06/20 19:51 30 08/06/20 19:51 Mechanical Ventilator 08/06/20 19:28 109 21 30 I&O Intake and Output 08/06/20 08/07/20 19:00 07:00 Intake Total 30 ml 465 ml Output Total 600 ml Balance 30 ml -135 ml Intake Free Water 50 ml IV Total 55 ml Tube Feeding 30 ml 360 ml Output Urine Total 600 ml # Bowel Movements 100 Dressing: saturated Cardiovascular: RSR Respiratory: decreased breath sounds Abdomen: non-tender, present bowel sounds Extremities: no edema, no tenderness, no cyanosis Laboratory Tests Test 08/07/20 08:27 Sodium Level 143 MMOL/L (136-145) Potassium Level 3.3 MMOL/L (3.5-5.1) L Chloride Level 106 MMOL/L (98-107) Carbon Dioxide Level 28 MMOL/L (21-32) Anion Gap 9 mmol/L (5-15) Blood Urea Nitrogen 84 mg/dL (7-18) H Creatinine 1.7 MG/DL (0.55-1.30) H Estimat Glomerular Filtration Rate 40.5 mL/min (>60) Glucose Level 170 MG/DL (74-106) H Calcium Level 8.3 MG/DL (8.5-10.1) L Plan Problems: (1) Respiratory distress (2) Renal failure Assessment & Plan: plan HD line soon temp hd consent from daughter (3) Metabolic acidosis (4) NSTEMI (non-ST elevated myocardial infarction) (5) Sepsis Assessment & Plan: okay for tf iv fluids vent via trach weaning vent g tube okay decubitus eval done and local care provided labs noted acidosis plan HD cont abx as per ID will follow with recs thank you DAILY ESTIMATED NEEDS: Needs based on Critical care, wound, AUNDREA/ 62.7kg 22-28 kcals/kg [id number] total kcals 0.8-1.25 (increase w/ renal fxn improvement) g protein/kg 50-78 g total protein 20-25 mL/kg 8049-4790 total fluid mLs NUTRITION DIAGNOSIS: Swallowing difficulty R/T respiratory failure as evidenced by trach/vent dep, PEG dep. CURRENT TF: NPO ENTERAL NUTRITION RECOMMENDATIONS: Nepro @ 35ml/hr x 24 hrs to provide 840ml, 1512kcal, 68g prot, 611ml free water * As medically appropriate, initiate Nepro, rec goal rate of 35ml/hr x 24 hrs * HOB over 30 degrees/ water flush per MD ADDITIONAL RECOMMENDATIONS: * Per SNF: HT=68" and UZ=622owm -> daily calibrated bedscale wt * Monitor renal fxn and lytes, ability to increase est prot needs * NISS w/ TF -> h/o DM * Probiotics for diarrhea * Wound healing: Add Nephrovite x 1, ZnSO4 220mg QD x 10 days Kenji BID w/ TF Rohit Brand Aug 07, 2020 17:17
[2020-08-07 20:00] VITALS: BP 138/93
[2020-08-07] MEDS: Dyna-Hex 2% Top Sol 2oz TOPIC SCH (21:03)
[2020-08-07] MEDS: Cefepime HCl 1 GM in D5W 55 ML IVPB SCH (21:04)
--- NOTE | 2020-08-07 21:37 | Neurology Progress Note ---
Interim History Interim History ROS Limited/Unobtainable: Yes Interim History lethargic non verbal Objective Physical Exam Last Vital Signs Date Time Temp Pulse Resp B/P (MAP) Pulse Ox O2 Delivery O2 Flow Rate FiO2 08/07/20 21:03 90 138/93 08/07/20 20:00 97.5 17 98 08/07/20 20:00 Mechanical Ventilator 08/07/20 20:00 30 Laboratory Tests Test 08/07/20 08:27 Sodium Level 143 MMOL/L (136-145) Potassium Level 3.3 MMOL/L (3.5-5.1) L Chloride Level 106 MMOL/L (98-107) Carbon Dioxide Level 28 MMOL/L (21-32) Anion Gap 9 mmol/L (5-15) Blood Urea Nitrogen 84 mg/dL (7-18) H Creatinine 1.7 MG/DL (0.55-1.30) H Estimat Glomerular Filtration Rate 40.5 mL/min (>60) Glucose Level 170 MG/DL (74-106) H Calcium Level 8.3 MG/DL (8.5-10.1) L Neurologic Exam Objective trach tachy grimaces to pain lethargic Impression/Recommendations Problems: (1) Respiratory distress (2) Renal failure (3) Metabolic acidosis (4) NSTEMI (non-ST elevated myocardial infarction) (5) Sepsis Diagnostic Impression Encephalopathy, likely metabolic sepsis hx of left thalamic hemorrhage likely from htn icu level map > 65 monitor mental status cont atb fu cultures ok for heparin SC given ich is chronic Pedro Hale MD Aug 07, 2020 21:37
[2020-08-08] VITALS: BP 137/88
[2020-08-08 04:00] VITALS: BP 154/95
[2020-08-08] MEDS: metroNIDAZOLE 500mg tab ORAL SCH ×3 (05:19→22:39)
[2020-08-08 05:50] LABS: HEMATOCRIT 26.3 % (42.0-52.0); HEMOGLOBIN 8.8 G/DL (14.2-18.0); MEAN CORPUSCULAR VOLUME 91 FL (80-99); PLATELET COUNT 160 K/UL (150-450); RED BLOOD COUNT 2.88 M/UL (4.70-6.10); RED CELL DISTRIBUTION WIDTH 15.1 % (11.6-14.8); WHITE BLOOD COUNT 15.9 K/UL (4.8-10.8)
[2020-08-08 06:01] LABS: PHOSPHORUS 4.2 MG/DL (2.5-4.9)
[2020-08-08 06:16] LABS: ALBUMIN 2.1 G/DL (3.4-5.0); ALBUMIN/GLOBULIN RATIO 0.5 (1.0-2.7); BILIRUBIN,TOTAL 0.5 MG/DL (0.2-1.0); CALCIUM 8.3 MG/DL (8.5-10.1); CREATININE 1.6 MG/DL (0.55-1.30); POTASSIUM 3.6 MMOL/L (3.5-5.1)
--- NOTE | 2020-08-08 06:18 | Hematology/Onc Progress Note ---
Assessment/Plan Assessment/Plan ASSESSMENT AND PLAN: # Leukocytosis is due to sepsis, fevers, leukocytosis. Avoid nephrotoxic drugs. --> ABX Continue Zyvox, cefepime, and Flagyl --> iamging has been reviewed --> as per pulm and id recs --> wbc 22-->18-->12->11 # Anemia due to hemodilution --> if lower than 10, get workup --> transfuse prn --> hgb 11-->10-->7.4-->9->8.8 # Thrombocytopenia due to underlying infection --> medications have been reviewed --> 186-->127-->105->160 --> is on hep, monitor --> smear has been reviewed --> hep and hiv neg # Trach, vent. # Dysphagia, on G-tube. 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 # Diabetes. # Hypertension. # Acute renal failure. # GERD. # Dvt ppx heparin sq Appreciate consultation and anil RN Subjective Constitutional: Denies: no symptoms, chills, fever, malaise, weakness, other HEENT: Denies: no symptoms, eye pain, blurred vision, tearing, double vision, ear pain, ear discharge, nose pain, nose congestion, throat pain, throat swelling, mouth pain, mouth swelling, other Gastrointestinal/Abdominal: Denies: no symptoms, abdomen distended, abdominal pain, black stools, tarry stools, blood in stool, constipated, diarrhea, difficulty swallowing, nausea, poor appetite, poor fluid intake, rectal bleeding, vomiting, other Genitourinary: Denies: no symptoms, burning, discharge, frequency, flank pain, hematuria, incontinence, pain, urgency, other Neurologic/Psychiatric: Denies: no symptoms, anxiety, depressed, emotional problems, headache, numbness, paresthesia, pre-existing deficit, seizure, tingling, tremors, weakness, other Endocrine: Denies: no symptoms, excessive sweating, flushing, intolerance to cold, intolerance to heat, increased hunger, increased thirst, increased urine, unexplained weight gain, unexplained weight loss, other Allergies: Coded Allergies: No Known Allergies (Unverified , 08/01/20) Subjective 08/04 remains on vent, abx, labs reviewed, meds noted 08/06 hd prn, no bleeding,with mota and rectal tube, labs noted 08/07 tolerating gt feeds, no new events overnight, anil rn 08/08 nv, vent, tolerating tube feeds, labs noted Objective Objective Current Medications Medications (Trade) Dose Ordered Sig/Maegan Route PRN Reason Start Time Stop Time Status Last Admin Dose Admin Acetaminophen (Tylenol) 650 mg Q4H PRN GT For Pain 08/02/20 15:45 09/01/20 15:44 08/03/20 02:13 Acetaminophen (Tylenol) 650 mg Q4H PRN GT Temp >100.5 08/02/20 15:45 09/01/20 15:44 Calcium Acetate (Phoslo) 1,334 mg TIAC ORAL 08/05/20 11:30 11/03/20 11:29 08/08/20 05:19 Cefepime HCl 1 gm/ Dextrose 55 ml @ 110 mls/hr Q24H IVPB 08/01/20 21:00 08/08/20 20:59 08/07/20 21:04 Chlorhexidine Gluconate (Deisy-Hex 2%) 1 applic BIOTEC TOPIC 08/02/20 21:00 10/31/20 20:59 08/07/20 21:03 Dextrose 1,000 ml @ 0 mls/hr Q0M IV 08/02/20 09:15 09/01/20 09:14 Heparin Sodium (Porcine) (Heparin 5000 units/ml) 5,000 units EVERY 12 HOURS SUBQ 08/02/20 21:00 09/16/20 20:59 08/06/20 22:06 Heparin Sodium/ Sodium Chloride (Heparin 1000 units/500ml Premix) 1,000 unit ONCE PRN IV picc line placement 08/07/20 11:45 08/09/20 11:44 Lidocaine HCl (Xylocaine 1% 30ml) 30 ml ONCE PRN INJ picc line placement 08/07/20 11:45 08/09/20 11:44 Metoclopramide HCl (Reglan) 10 mg Q6H PRN IVP Nausea & Vomiting 08/05/20 14:15 09/04/20 14:14 08/07/20 04:38 Metoprolol Tartrate (Lopressor) 12.5 mg Q12HR GT 08/02/20 21:00 10/31/20 09:59 08/07/20 21:03 Metronidazole (Flagyl) 500 mg EVERY 8 HOURS ORAL 08/02/20 22:00 08/09/20 21:59 08/08/20 05:19 Pantoprazole (Protonix) 40 mg DAILY IVP 08/03/20 09:00 09/02/20 08:59 08/07/20 08:17 Sevelamer Carbonate (Renvela) 800 mg THREE TIMES A DAY NG 08/04/20 13:00 11/02/20 12:59 08/07/20 18:17 Last 24 Hour Vital Signs Date Time Temp Pulse Resp B/P (MAP) Pulse Ox O2 Delivery O2 Flow Rate FiO2 08/08/20 04:00 82 08/08/20 04:00 97.5 83 17 154/95 (114) 100 08/08/20 04:00 30 08/08/20 04:00 Mechanical Ventilator 08/08/20 02:56 85 16 30 08/08/20 00:45 83 16 30 08/08/20 00:00 97.7 82 17 137/88 (104) 100 08/08/20 00:00 Mechanical Ventilator 08/08/20 00:00 30 08/08/20 00:00 97.7 82 17 137/88 (104) 100 08/07/20 23:51 81 08/07/20 21:03 90 138/93 08/07/20 20:00 97.5 78 17 138/93 (108) 98 08/07/20 20:00 Mechanical Ventilator 08/07/20 20:00 30 08/07/20 20:00 82 08/07/20 18:40 86 16 30 08/07/20 16:00 98.1 97 16 139/91 (107) 100 08/07/20 16:00 30 08/07/20 16:00 89 08/07/20 16:00 Mechanical Ventilator 08/07/20 15:09 95 20 30 08/07/20 12:00 Mechanical Ventilator 08/07/20 12:00 91 08/07/20 12:00 97.8 96 18 138/91 (107) 100 08/07/20 12:00 30 08/07/20 11:08 72 19 30 08/07/20 08:18 93 123/89 08/07/20 08:00 98 08/07/20 08:00 30 12/28/20 08:00 97.8 93 16 123/89 (100) 100 08/07/20 08:00 Mechanical Ventilator 08/07/20 07:11 88 16 30 08/07/20 06:40 95 20 30 08/07/20 04:00 90 08/07/20 04:00 98.1 89 17 128/85 (99) 100 08/07/20 03:55 Mechanical Ventilator 08/07/20 03:55 30 08/07/20 00:00 98.2 94 16 117/72 (87) 100 08/06/20 23:42 30 08/06/20 23:41 Mechanical Ventilator 08/06/20 23:20 91 16 30 08/06/20 21:39 106 98/65 08/06/20 20:00 98.1 106 16 98/65 (76) 99 08/06/20 20:00 110 08/06/20 19:51 30 08/06/20 19:51 Mechanical Ventilator 08/06/20 19:28 109 21 30 08/06/20 16:00 Mechanical Ventilator 08/06/20 16:00 30 08/06/20 16:00 97.5 100 19 147/84 (105) 95 08/06/20 15:38 100 08/06/20 15:13 99 18 30 08/06/20 12:00 Mechanical Ventilator 08/06/20 12:00 97.9 88 17 128/74 (92) 100 08/06/20 12:00 30 08/06/20 11:36 87 08/06/20 11:10 86 19 30 08/06/20 09:14 96 110/72 08/06/20 08:00 97.5 89 17 130/86 (101) 100 08/06/20 08:00 Mechanical Ventilator 08/06/20 08:00 30 08/06/20 07:51 93 08/06/20 07:27 96 20 30 Intake and Output 08/07/20 08/08/20 19:00 07:00 Intake Total 40 ml 640 ml Output Total 550 ml Balance 40 ml 90 ml Intake Free Water 200 ml Tube Feeding 40 ml 440 ml Output Urine Total 450 ml Stool Total 100 ml Labs Test 08/05/20 07:20 08/05/20 09:15 08/05/20 23:42 08/06/20 08:30 Sodium Level 140 MMOL/L (136-145) 140 MMOL/L (136-145) Potassium Level 2.1 MMOL/L (3.5-5.1) 1.9 MMOL/L (3.5-5.1) Chloride Level 100 MMOL/L (98-107) 101 MMOL/L (98-107) Carbon Dioxide Level 28 MMOL/L (21-32) 27 MMOL/L (21-32) Anion Gap 11 mmol/L (5-15) 11 mmol/L (5-15) Blood Urea Nitrogen 100 mg/dL (7-18) 91 mg/dL (7-18) Creatinine 1.7 MG/DL (0.55-1.30) 1.7 MG/DL (0.55-1.30) Estimat Glomerular Filtration Rate 40.5 mL/min (>60) 40.5 mL/min (>60) Glucose Level 126 MG/DL (74-106) 127 MG/DL (74-106) Calcium Level 7.9 MG/DL (8.5-10.1) 8.3 MG/DL (8.5-10.1) Phosphorus Level 6.5 MG/DL (2.5-4.9) 6.6 MG/DL (2.5-4.9) Magnesium Level 1.9 MG/DL (1.8-2.4) 2.0 MG/DL (1.8-2.4) White Blood Count 11.3 K/UL (4.8-10.8) 11.5 K/UL (4.8-10.8) Red Blood Count 3.09 M/UL (4.70-6.10) 2.94 M/UL (4.70-6.10) Hemoglobin 9.4 G/DL (14.2-18.0) 9.1 G/DL (14.2-18.0) Hematocrit 25.7 % (42.0-52.0) 24.9 % (42.0-52.0) Mean Corpuscular Volume 83 FL (80-99) 85 FL (80-99) Mean Corpuscular Hemoglobin 30.4 PG (27.0-31.0) 31.0 PG (27.0-31.0) Mean Corpuscular Hemoglobin Concent 36.5 G/DL (32.0-36.0) 36.5 G/DL (32.0-36.0) Red Cell Distribution Width 15.6 % (11.6-14.8) 14.3 % (11.6-14.8) Platelet Count 105 K/UL (150-450) 123 K/UL (150-450) Mean Platelet Volume 14.2 FL (6.5-10.1) 12.5 FL (6.5-10.1) Neutrophils (%) (Auto) 83.4 % (45.0-75.0) % (45.0-75.0) Lymphocytes (%) (Auto) 9.9 % (20.0-45.0) % (20.0-45.0) Monocytes (%) (Auto) 5.9 % (1.0-10.0) % (1.0-10.0) Eosinophils (%) (Auto) 0.0 % (0.0-3.0) % (0.0-3.0) Basophils (%) (Auto) 0.7 % (0.0-2.0) % (0.0-2.0) Differential Total Cells Counted 100 Neutrophils % (Manual) 83 % (45-75) Lymphocytes % (Manual) 8 % (20-45) Monocytes % (Manual) 6 % (1-10) Eosinophils % (Manual) 1 % (0-3) Basophils % (Manual) 0 % (0-2) Band Neutrophils 2 % (0-8) Platelet Estimate Decreased Platelet Morphology Normal Anisocytosis 1+ Hepatitis A IgM Antibody Negative (Negative) Hepatitis B Surface Antigen Negative (Negative) Hepatitis B Core IgM Antibody Negative (Negative) Hepatitis C Antibody <0.1 s/co ratio HIV (1&2) Antibody Rapid Negative (NEGATIVE) Test 08/06/20 11:51 08/06/20 15:50 08/07/20 08:27 08/08/20 04:25 POC Whole Blood Glucose 140 MG/DL (74-106) Potassium Level 3.3 MMOL/L (3.5-5.1) 3.3 MMOL/L (3.5-5.1) Sodium Level 143 MMOL/L (136-145) Chloride Level 106 MMOL/L (98-107) Carbon Dioxide Level 28 MMOL/L (21-32) Anion Gap 9 mmol/L (5-15) Blood Urea Nitrogen 84 mg/dL (7-18) Creatinine 1.7 MG/DL (0.55-1.30) Estimat Glomerular Filtration Rate 40.5 mL/min (>60) Glucose Level 170 MG/DL (74-106) Calcium Level 8.3 MG/DL (8.5-10.1) White Blood Count 15.9 K/UL (4.8-10.8) Red Blood Count 2.88 M/UL (4.70-6.10) Hemoglobin 8.8 G/DL (14.2-18.0) Hematocrit 26.3 % (42.0-52.0) Mean Corpuscular Volume 91 FL (80-99) Mean Corpuscular Hemoglobin 30.7 PG (27.0-31.0) Mean Corpuscular Hemoglobin Concent 33.6 G/DL (32.0-36.0) Red Cell Distribution Width 15.1 % (11.6-14.8) Platelet Count 160 K/UL (150-450) Mean Platelet Volume 8.6 FL (6.5-10.1) Neutrophils (%) (Auto) % (45.0-75.0) Lymphocytes (%) (Auto) % (20.0-45.0) Monocytes (%) (Auto) % (1.0-10.0) Eosinophils (%) (Auto) % (0.0-3.0) Basophils (%) (Auto) % (0.0-2.0) Phosphorus Level 4.2 MG/DL (2.5-4.9) Magnesium Level 1.8 MG/DL (1.8-2.4) Height (Feet): 5 Height (Inches): 7.00 Weight (Pounds): 175 Objective Physical Exam General Appearance: lethargic Lines, tubes and drains: trach+++ vent++++ HEENT: normocephalic, atraumatic, mucous membranes moist Neck: normal alignment Respiratory/Chest: rhonchi - bilaterally Cardiovascular/Chest: normal peripheral pulses, regular rhythm Abdomen: soft, no mass, feeding tube Extremities: no edema, no cyanosis Skin Exam: normal pigmentation, warm/dry Neurologic: unresponsiveness Karthik Mercedes MD Aug 08, 2020 06:18
[2020-08-08 08:00] VITALS: BP_SYST 158; BP_SYST 186; BP_DIAS 105; BP_DIAS 96
[2020-08-08] MEDS: Pantoprazole Inj IVP SCH (08:22)
[2020-08-08] MEDS: Renvela 800mg Pkt NG SCH ×3 (08:22→17:18)
[2020-08-08] MEDS: Metoprolol Tartrate 12.5mg TAB GT SCH ×2 (08:22→20:47)
[2020-08-08] MEDS: Heparin 5000 units/ml inj SUBQ SCH ×2 (08:24→20:49)
--- NOTE | 2020-08-08 08:46 | Nephrology Progress Note ---
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 per daughter #Uremia #Anemia #Pneumonia #sepsis - per discussion with daughter - HD is in line with goals of care - for now hold off HD- Cr seems to be stabilizing - will remove renuka pending revolution of renal function - monitor labs - DC bicarb drip - add sevelamer - monitor ABG - antibiotics per ID - avoid nephrotoxins - monitor UOP - monitor electrolytes time spent 65 min Subjective ROS Limited/Unobtainable: Yes Subjective Cr stable hold HD for now Objective Objective Last 24 Hour Vital Signs Date Time Temp Pulse Resp B/P (MAP) Pulse Ox O2 Delivery O2 Flow Rate FiO2 08/08/20 08:22 83 158/96 08/08/20 08:00 30 08/08/20 08:00 97.7 96 16 158/96 (116) 100 08/08/20 06:41 77 16 30 08/08/20 04:00 82 08/08/20 04:00 97.5 83 17 154/95 (114) 100 08/08/20 04:00 30 08/08/20 04:00 Mechanical Ventilator 08/08/20 02:56 85 16 30 08/08/20 00:45 83 16 30 08/08/20 00:00 97.7 82 17 137/88 (104) 100 08/08/20 00:00 Mechanical Ventilator 08/08/20 00:00 30 08/08/20 00:00 97.7 82 17 137/88 (104) 100 08/07/20 23:51 81 08/07/20 21:03 90 138/93 08/07/20 20:00 97.5 78 17 138/93 (108) 98 08/07/20 20:00 Mechanical Ventilator 08/07/20 20:00 30 08/07/20 20:00 82 08/07/20 18:40 86 16 30 08/07/20 16:00 98.1 97 16 139/91 (107) 100 08/07/20 16:00 30 08/07/20 16:00 89 08/07/20 16:00 Mechanical Ventilator 08/07/20 15:09 95 20 30 08/07/20 12:00 Mechanical Ventilator 08/07/20 12:00 91 08/07/20 12:00 97.8 96 18 138/91 (107) 100 08/07/20 12:00 30 08/07/20 11:08 72 19 30 Intake and Output 08/07/20 08/08/20 19:00 07:00 Intake Total 40 ml 640 ml Output Total 550 ml Balance 40 ml 90 ml Intake Free Water 200 ml Tube Feeding 40 ml 440 ml Output Urine Total 450 ml Stool Total 100 ml Laboratory Tests 08/08/20 04:25: White Blood Count 15.9H, Red Blood Count 2.88L, Hemoglobin 8.8L, Hematocrit 26.3L, Mean Corpuscular Volume 91, Mean Corpuscular Hemoglobin 30.7, Mean Corpuscular Hemoglobin Concent 33.6, Red Cell Distribution Width 15.1H, Platelet Count 160, Mean Platelet Volume 8.6, Neutrophils (%) (Auto) , Lymphocytes (%) (Auto) , Monocytes (%) (Auto) , Eosinophils (%) (Auto) , Basophils (%) (Auto) , Neutrophils % (Manual) [Pending], Lymphocytes % (Manual) [Pending], Platelet Estimate [Pending], Platelet Morphology [Pending], Sodium Level 141, Potassium Level 3.6, Chloride Level 106, Carbon Dioxide Level 27, Anion Gap 8, Blood Urea Nitrogen 82H, Creatinine 1.6H, Estimat Glomerular Filtration Rate 43.5, Glucose Level 160H, Calcium Level 8.3L, Phosphorus Level 4.2, Magnesium Level 1.8, Total Bilirubin 0.5, Aspartate Amino Transf (AST/SGOT) 128H, Alanine Aminotransferase (ALT/SGPT) 197H, Alkaline Phosphatase 88, Total Protein 6.1L, Albumin 2.1L, Globulin 4.0, Albumin/Globulin Ratio 0.5L Height (Feet): 5 Height (Inches): 7.00 Weight (Pounds): 175 Objective General Appearance: other - non interactive Cardiovascular: normal rate, regular rhythm Respiratory/Chest: no respiratory distress, other - Trach on Vent Abdomen: soft, other - Rectal tube in place Extremities: other - bedbound Neurologic: other - non interactive at baseline Skin: warm/dry Gladys Sherman M.D. Aug 08, 2020 08:45
[2020-08-08] MEDS ORDERED: Tubing IV Secondary IV ONE (09:00)
[2020-08-08] MEDS ORDERED: D5W 275ml ONE (09:00)
--- NOTE | 2020-08-08 11:27 | General Progress Note ---
Subjective Date patient seen: Aug 08, 2020 Allergies: Coded Allergies: No Known Allergies (Unverified , 08/01/20) Subjective Patient is s/p HD cath; HD per nephro. No acute changes; labs reviewed and vitals noted. WBC is climbing , f/u with ID. On Cefepime and Flagyl Objective Last 24 Hour Vital Signs Date Time Temp Pulse Resp B/P (MAP) Pulse Ox O2 Delivery O2 Flow Rate FiO2 08/08/20 10:40 76 16 30 08/08/20 08:22 83 158/96 08/08/20 08:00 30 08/08/20 08:00 92 08/08/20 08:00 97.7 96 16 158/96 (116) 100 08/08/20 08:00 Mechanical Ventilator 08/08/20 06:41 77 16 30 08/08/20 04:00 82 08/08/20 04:00 97.5 83 17 154/95 (114) 100 08/08/20 04:00 30 08/08/20 04:00 Mechanical Ventilator 08/08/20 02:56 85 16 30 08/08/20 00:45 83 16 30 08/08/20 00:00 97.7 82 17 137/88 (104) 100 08/08/20 00:00 Mechanical Ventilator 08/08/20 00:00 30 08/08/20 00:00 97.7 82 17 137/88 (104) 100 08/07/20 23:51 81 08/07/20 21:03 90 138/93 08/07/20 20:00 97.5 78 17 138/93 (108) 98 08/07/20 20:00 Mechanical Ventilator 08/07/20 20:00 30 08/07/20 20:00 82 08/07/20 18:40 86 16 30 08/07/20 16:00 98.1 97 16 139/91 (107) 100 08/07/20 16:00 30 08/07/20 16:00 89 08/07/20 16:00 Mechanical Ventilator 08/07/20 15:09 95 20 30 08/07/20 12:00 Mechanical Ventilator 08/07/20 12:00 91 08/07/20 12:00 97.8 96 18 138/91 (107) 100 08/07/20 12:00 30 Intake and Output 08/07/20 08/08/20 19:00 07:00 Intake Total 40 ml 680 ml Output Total 550 ml Balance 40 ml 130 ml Intake Free Water 200 ml Tube Feeding 40 ml 480 ml Output Urine Total 450 ml Stool Total 100 ml Laboratory Tests 08/08/20 04:25: White Blood Count 15.9H, Red Blood Count 2.88L, Hemoglobin 8.8L, Hematocrit 26.3L, Mean Corpuscular Volume 91, Mean Corpuscular Hemoglobin 30.7, Mean Corpuscular Hemoglobin Concent 33.6, Red Cell Distribution Width 15.1H, Platelet Count 160, Mean Platelet Volume 8.6, Neutrophils (%) (Auto) , Lymphocytes (%) (Auto) , Monocytes (%) (Auto) , Eosinophils (%) (Auto) , Basophils (%) (Auto) , Differential Total Cells Counted 100, Neutrophils % (Manual) 75, Lymphocytes % (Manual) 14L, Monocytes % (Manual) 6, Eosinophils % (Manual) 2, Basophils % (Manual) 0, Myelocytes % 2H, Band Neutrophils 1, Platelet Estimate Adequate, Platelet Morphology Normal, Anisocytosis 1+, Sodium Level 141, Potassium Level 3.6, Chloride Level 106, Carbon Dioxide Level 27, Anion Gap 8, Blood Urea Nit rogen 82H, Creatinine 1.6H, Estimat Glomerular Filtration Rate 43.5, Glucose Level 160H, Calcium Level 8.3L, Phosphorus Level 4.2, Magnesium Level 1.8, Total Bilirubin 0.5, Aspartate Amino Transf (AST/SGOT) 128H, Alanine Aminotransferase (ALT/SGPT) 197H, Alkaline Phosphatase 88, Total Protein 6.1L, Albumin 2.1L, Globulin 4.0, Albumin/Globulin Ratio 0.5L Height (Feet): 5 Height (Inches): 7.00 Weight (Pounds): 175 General Appearance: other - non interactive Cardiovascular: normal rate, regular rhythm Respiratory/Chest: no respiratory distress, other - Trach on Vent Abdomen: soft, other - Rectal tube in place Extremities: other - bedbound Neurologic: other - non interactive at baseline Skin: warm/dry Assessment/Plan Assessment/Plan: #Sepsis - unclear source, cultures NTD. WBC still improving. #Metabolic acidosis - likely from severe uremia - improving #NSTEMI - may be demand ischemia in sepsis #Acute kidney injury - may be sepsis related. - s/p CTX, zosyn, IVF in ED - avoid nephrotoxic drugs - HD per nephro,s/p Nicholas - Cefepime + Flagyl - low threshold to broaden antibiotics - f/u cultures - NTD - IVF - trend troponin - ID consult Dr. Stone - Nephro consult Dr. Sherman - Cardiology consult Dr. Mari #Acute on chronic respiratory failure - stable on FiO2 30% #s/p tracheostomy #PEG status - Ventilator dependent - transferred out of ICU 08/04/2020 - CXR clear, low suspicion for pneumonia - Covid negative - pulmonary consult Dr. Nunez - tube feed - nutrition consult #Hx of thalamic infarct #Uremic encephalopathy? - nonverbal, lethargic currently - neurology consult Dr. Hale #Diabetes - ISS Fluids: IVF Diet: tube feed DVT ppx: heparin Code: FULL I spent 34 minutes on this patient's case, and 22 minutes were dedicated to counseling and/or care coordination. Discussed with cardiology and pulmonology and ID consultants. Time of note may not reflect time of encounter 08/08: HD per Mahogany Appiah D.O. Aug 08, 2020 11:27
[2020-08-08 12:00] VITALS: BP 133/95
--- NOTE | 2020-08-08 12:18 | Cardiac Electrophysiology PN ---
Assessment/Plan Assessment/Plan 1. Troponin elevation. Levels are coming down at 0.8 to 0.5. Due to renal failure with BUN of 343, creatinine of 4.1 as well as sepsis with white count of 22,000. His EKG also shows sinus rhythm with inferolateral ischemia. On Lopressor 12.5 bid. 2. Shortness of breath with respiratory failure, status post tracheostomy, on the ventilator with 30% FiO2. 3. Dysphagia, status post PEG placement. 4. Acute renal failure with BUN of 343, creatinine of 4.1. S/P Right IJ Nicholas catheter 08/07. Had first HD on 08/03 5. Diabetes. 6. History of left thalamic hemorrhage. Subjective Subjective S/P Right IJ Nicholas catheter placement. On the vent with 30% Fio2 via trach Objective Last 24 Hour Vital Signs Date Time Temp Pulse Resp B/P (MAP) Pulse Ox O2 Delivery O2 Flow Rate FiO2 08/08/20 10:40 76 16 30 08/08/20 08:22 83 158/96 08/08/20 08:00 30 08/08/20 08:00 92 08/08/20 08:00 97.7 96 16 158/96 (116) 100 08/08/20 08:00 Mechanical Ventilator 08/08/20 06:41 77 16 30 08/08/20 04:00 82 08/08/20 04:00 97.5 83 17 154/95 (114) 100 08/08/20 04:00 30 08/08/20 04:00 Mechanical Ventilator 08/08/20 02:56 85 16 30 08/08/20 00:45 83 16 30 08/08/20 00:00 97.7 82 17 137/88 (104) 100 08/08/20 00:00 Mechanical Ventilator 08/08/20 00:00 30 08/08/20 00:00 97.7 82 17 137/88 (104) 100 08/07/20 23:51 81 08/07/20 21:03 90 138/93 08/07/20 20:00 97.5 78 17 138/93 (108) 98 08/07/20 20:00 Mechanical Ventilator 08/07/20 20:00 30 08/07/20 20:00 82 08/07/20 18:40 86 16 30 08/07/20 16:00 98.1 97 16 139/91 (107) 100 08/07/20 16:00 30 08/07/20 16:00 89 08/07/20 16:00 Mechanical Ventilator 08/07/20 15:09 95 20 30 Intake and Output 08/07/20 08/08/20 19:00 07:00 Intake Total 40 ml 680 ml Output Total 550 ml Balance 40 ml 130 ml Intake Free Water 200 ml Tube Feeding 40 ml 480 ml Output Urine Total 450 ml Stool Total 100 ml Laboratory Tests Test 08/08/20 04:25 White Blood Count 15.9 K/UL (4.8-10.8) H Red Blood Count 2.88 M/UL (4.70-6.10) L Hemoglobin 8.8 G/DL (14.2-18.0) L Hematocrit 26.3 % (42.0-52.0) L Mean Corpuscular Volume 91 FL (80-99) Mean Corpuscular Hemoglobin 30.7 PG (27.0-31.0) Mean Corpuscular Hemoglobin Concent 33.6 G/DL (32.0-36.0) Red Cell Distribution Width 15.1 % (11.6-14.8) H Platelet Count 160 K/UL (150-450) Mean Platelet Volume 8.6 FL (6.5-10.1) Neutrophils (%) (Auto) % (45.0-75.0) Lymphocytes (%) (Auto) % (20.0-45.0) Monocytes (%) (Auto) % (1.0-10.0) Eosinophils (%) (Auto) % (0.0-3.0) Basophils (%) (Auto) % (0.0-2.0) Differential Total Cells Counted 100 Neutrophils % (Manual) 75 % (45-75) Lymphocytes % (Manual) 14 % (20-45) L Monocytes % (Manual) 6 % (1-10) Eosinophils % (Manual) 2 % (0-3) Basophils % (Manual) 0 % (0-2) Myelocytes % 2 % (0-0) H Band Neutrophils 1 % (0-8) Platelet Estimate Adequate Platelet Morphology Normal Anisocytosis 1+ Sodium Level 141 MMOL/L (136-145) Potassium Level 3.6 MMOL/L (3.5-5.1) Chloride Level 106 MMOL/L (98-107) Carbon Dioxide Level 27 MMOL/L (21-32) Anion Gap 8 mmol/L (5-15) Blood Urea Nitrogen 82 mg/dL (7-18) H Creatinine 1.6 MG/DL (0.55-1.30) H Estimat Glomerular Filtration Rate 43.5 mL/min (>60) Glucose Level 160 MG/DL (74-106) H Calcium Level 8.3 MG/DL (8.5-10.1) L Phosphorus Level 4.2 MG/DL (2.5-4.9) Magnesium Level 1.8 MG/DL (1.8-2.4) Total Bilirubin 0.5 MG/DL (0.2-1.0) Aspartate Amino Transf (AST/SGOT) 128 U/L (15-37) H Alanine Aminotransferase (ALT/SGPT) 197 U/L (12-78) H Alkaline Phosphatase 88 U/L (46-116) Total Protein 6.1 G/DL (6.4-8.2) L Albumin 2.1 G/DL (3.4-5.0) L Globulin 4.0 g/dL Albumin/Globulin Ratio 0.5 (1.0-2.7) L Objective HEAD AND NECK: Status post tracheostomy with no JVD. LUNGS: Coarse rhonchi. CARDIOVASCULAR: Regular S1 and S2 with no gallop. ABDOMEN: Status post G-tube. EXTREMITIES: No pitting edema. Gregorio Mari MD Aug 08, 2020 12:18
--- NOTE | 2020-08-08 12:37 | Pulmonology Progress Note ---
Subjective ROS Limited/Unobtainable: Yes Interval Events: No new events Constitutional: Reports: other - trach and vent ; Denies: fever HEENT: Repors: no symptoms Respiratory: Reports: no symptoms Cardiovascular: Reports: no symptoms Gastrointestinal/Abdominal: Denies: nausea, vomiting Psychiatric: Denies: depression Skin: Denies: rash Musculoskeletal: Denies: pain Allergies: Coded Allergies: No Known Allergies (Unverified , 08/01/20) All Systems: reviewed and negative except above Objective Last 24 Hour Vital Signs Date Time Temp Pulse Resp B/P (MAP) Pulse Ox O2 Delivery O2 Flow Rate FiO2 08/08/20 10:40 76 16 30 08/08/20 08:22 83 158/96 08/08/20 08:00 30 08/08/20 08:00 92 08/08/20 08:00 97.7 96 16 158/96 (116) 100 08/08/20 08:00 Mechanical Ventilator 08/08/20 06:41 77 16 30 08/08/20 04:00 82 08/08/20 04:00 97.5 83 17 154/95 (114) 100 08/08/20 04:00 30 08/08/20 04:00 Mechanical Ventilator 08/08/20 02:56 85 16 30 08/08/20 00:45 83 16 30 08/08/20 00:00 97.7 82 17 137/88 (104) 100 08/08/20 00:00 Mechanical Ventilator 08/08/20 00:00 30 08/08/20 00:00 97.7 82 17 137/88 (104) 100 08/07/20 23:51 81 08/07/20 21:03 90 138/93 08/07/20 20:00 97.5 78 17 138/93 (108) 98 08/07/20 20:00 Mechanical Ventilator 08/07/20 20:00 30 08/07/20 20:00 82 08/07/20 18:40 86 16 30 08/07/20 16:00 98.1 97 16 139/91 (107) 100 08/07/20 16:00 30 08/07/20 16:00 89 08/07/20 16:00 Mechanical Ventilator 08/07/20 15:09 95 20 30 Intake and Output 08/07/20 08/08/20 19:00 07:00 Intake Total 40 ml 680 ml Output Total 550 ml Balance 40 ml 130 ml Intake Free Water 200 ml Tube Feeding 40 ml 480 ml Output Urine Total 450 ml Stool Total 100 ml General Appearance: WD/WN HEENT: normocephalic, status post trach Respiratory: chest wall non-tender Cardiovascular: normal peripheral pulses, normal rate Abdomen: normal bowel sounds Laboratory Tests 08/08/20 04:25: White Blood Count 15.9H, Red Blood Count 2.88L, Hemoglobin 8.8L, Hematocrit 26.3L, Mean Corpuscular Volume 91, Mean Corpuscular Hemoglobin 30.7, Mean Corpuscular Hemoglobin Concent 33.6, Red Cell Distribution Width 15.1H, Platelet Count 160, Mean Platelet Volume 8.6, Neutrophils (%) (Auto) , Lymphocytes (%) (Auto) , Monocytes (%) (Auto) , Eosinophils (%) (Auto) , Basophils (%) (Auto) , Differential Total Cells Counted 100, Neutrophils % (Manual) 75, Lymphocytes % (Manual) 14L, Monocytes % (Manual) 6, Eosinophils % (Manual) 2, Basophils % (Manual) 0, Myelocytes % 2H, Band Neutrophils 1, Platelet Estimate Adequate, Platelet Morphology Normal, Anisocytosis 1+, Sodium Level 141, Potassium Level 3.6, Chloride Level 106, Carbon Dioxide Level 27, Anion Gap 8, Blood Urea Nitrogen 82H, Creatinine 1.6H, Estimat Glomerular Filtration Rate 43.5, Glucose Level 160H, Calcium Level 8.3L, Phosphorus Level 4.2, Magnesium Level 1.8, Total Bilirubin 0.5, Aspartate Amino Transf (AST/SGOT) 128H, Alanine Aminotransferase (ALT/SGPT) 197H, Alkaline Phosphatase 88, Total Protein 6.1L, Albumin 2.1L, Globulin 4.0, Albumin/Globulin Ratio 0.5L Current Medications Medications (Trade) Dose Ordered Sig/Maegan Route PRN Reason Start Time Stop Time Status Last Admin Dose Admin Acetaminophen (Tylenol) 650 mg Q4H PRN GT For Pain 08/02/20 15:45 09/01/20 15:44 08/03/20 02:13 Acetaminophen (Tylenol) 650 mg Q4H PRN GT Temp >100.5 08/02/20 15:45 09/01/20 15:44 Calcium Acetate (Phoslo) 1,334 mg TIAC ORAL 08/05/20 11:30 11/03/20 11:29 08/08/20 11:57 Cefepime HCl 1 gm/ Dextrose 55 ml @ 110 mls/hr Q24H IVPB 08/01/20 21:00 08/08/20 20:59 08/07/20 21:04 Chlorhexidine Gluconate (Deisy-Hex 2%) 1 applic BIOTEC TOPIC 08/02/20 21:00 10/31/20 20:59 08/07/20 21:03 Dextrose 1,000 ml @ 0 mls/hr Q0M IV 08/02/20 09:15 09/01/20 09:14 Heparin Sodium (Porcine) (Heparin 5000 units/ml) 5,000 units EVERY 12 HOURS SUBQ 08/02/20 21:00 09/16/20 20:59 08/08/20 08:24 Heparin Sodium/ Sodium Chloride (Heparin 1000 units/500ml Premix) 1,000 unit ONCE PRN IV picc line placement 08/07/20 11:45 08/09/20 11:44 Lidocaine HCl (Xylocaine 1% 30ml) 30 ml ONCE PRN INJ picc line placement 08/07/20 11:45 08/09/20 11:44 Metoclopramide HCl (Reglan) 10 mg Q6H PRN IVP Nausea & Vomiting 08/05/20 14:15 09/04/20 14:14 08/07/20 04:38 Metoprolol Tartrate (Lopressor) 12.5 mg Q12HR GT 08/02/20 21:00 10/31/20 09:59 08/08/20 08:22 Metronidazole (Flagyl) 500 mg EVERY 8 HOURS ORAL 08/02/20 22:00 08/09/20 21:59 08/08/20 05:19 Pantoprazole (Protonix) 40 mg DAILY IVP 08/03/20 09:00 09/02/20 08:59 08/08/20 08:22 Sevelamer Carbonate (Renvela) 800 mg THREE TIMES A DAY NG 08/04/20 13:00 11/02/20 12:59 08/08/20 08:22 Assessment/Plan Assessment/Plan IMPRESSION: 1. Chronic respiratory failure. Chronic tracheostomy 2. Metabolic acidosis. On hemodialysis 3. Renal failure. HD per renal 4. Leukocytosis. 5. Sepsis. Source unclear; C dif negative; CXR clear DISCUSSION: Agree with broad spectrum antibiotics. I will continue AC mode. Currently FiO2 30%; PEEP 5 Discontinued bicarbonate supplementation. Noted plans for HD and tunnelled cath. Potassium supplementation per nephrology Hemodynamically stable I will follow carefully. Jeromy Ryan Omar Syed MD Aug 08, 2020 12:37
--- NOTE | 2020-08-08 14:28 | Surgery Progress Note ---
Surgery Progress Note Subjective Procedure Performed right femoral temporary hemodialysis catheter insertion Additional Comments leukocytosis anemia renal function improving no n/v Objective Last 24 Hour Vital Signs Date Time Temp Pulse Resp B/P (MAP) Pulse Ox O2 Delivery O2 Flow Rate FiO2 08/08/20 12:00 Mechanical Ventilator 08/08/20 11:29 91 08/08/20 10:40 76 16 30 08/08/20 08:22 83 158/96 08/08/20 08:00 30 08/08/20 08:00 92 08/08/20 08:00 97.7 96 16 158/96 (116) 100 08/08/20 08:00 Mechanical Ventilator 08/08/20 06:41 77 16 30 08/08/20 04:00 82 08/08/20 04:00 97.5 83 17 154/95 (114) 100 08/08/20 04:00 30 08/08/20 04:00 Mechanical Ventilator 08/08/20 02:56 85 16 30 08/08/20 00:45 83 16 30 08/08/20 00:00 97.7 82 17 137/88 (104) 100 08/08/20 00:00 Mechanical Ventilator 08/08/20 00:00 30 08/08/20 00:00 97.7 82 17 137/88 (104) 100 08/07/20 23:51 81 08/07/20 21:03 90 138/93 08/07/20 20:00 97.5 78 17 138/93 (108) 98 08/07/20 20:00 Mechanical Ventilator 08/07/20 20:00 30 08/07/20 20:00 82 08/07/20 18:40 86 16 30 08/07/20 16:00 98.1 97 16 139/91 (107) 100 08/07/20 16:00 30 08/07/20 16:00 89 08/07/20 16:00 Mechanical Ventilator 08/07/20 15:09 95 20 30 I&O Intake and Output 08/07/20 08/08/20 19:00 07:00 Intake Total 40 ml 680 ml Output Total 550 ml Balance 40 ml 130 ml Intake Free Water 200 ml Tube Feeding 40 ml 480 ml Output Urine Total 450 ml Stool Total 100 ml Dressing: saturated Cardiovascular: RSR Respiratory: decreased breath sounds Abdomen: soft, non-tender, present bowel sounds Extremities: no tenderness, no cyanosis Laboratory Tests Test 08/08/20 04:25 White Blood Count 15.9 K/UL (4.8-10.8) H Red Blood Count 2.88 M/UL (4.70-6.10) L Hemoglobin 8.8 G/DL (14.2-18.0) L Hematocrit 26.3 % (42.0-52.0) L Mean Corpuscular Volume 91 FL (80-99) Mean Corpuscular Hemoglobin 30.7 PG (27.0-31.0) Mean Corpuscular Hemoglobin Concent 33.6 G/DL (32.0-36.0) Red Cell Distribution Width 15.1 % (11.6-14.8) H Platelet Count 160 K/UL (150-450) Mean Platelet Volume 8.6 FL (6.5-10.1) Neutrophils (%) (Auto) % (45.0-75.0) Lymphocytes (%) (Auto) % (20.0-45.0) Monocytes (%) (Auto) % (1.0-10.0) Eosinophils (%) (Auto) % (0.0-3.0) Basophils (%) (Auto) % (0.0-2.0) Differential Total Cells Counted 100 Neutrophils % (Manual) 75 % (45-75) Lymphocytes % (Manual) 14 % (20-45) L Monocytes % (Manual) 6 % (1-10) Eosinophils % (Manual) 2 % (0-3) Basophils % (Manual) 0 % (0-2) Myelocytes % 2 % (0-0) H Band Neutrophils 1 % (0-8) Platelet Estimate Adequate Platelet Morphology Normal Anisocytosis 1+ Sodium Level 141 MMOL/L (136-145) Potassium Level 3.6 MMOL/L (3.5-5.1) Chloride Level 106 MMOL/L (98-107) Carbon Dioxide Level 27 MMOL/L (21-32) Anion Gap 8 mmol/L (5-15) Blood Urea Nitrogen 82 mg/dL (7-18) H Creatinine 1.6 MG/DL (0.55-1.30) H Estimat Glomerular Filtration Rate 43.5 mL/min (>60) Glucose Level 160 MG/DL (74-106) H Calcium Level 8.3 MG/DL (8.5-10.1) L Phosphorus Level 4.2 MG/DL (2.5-4.9) Magnesium Level 1.8 MG/DL (1.8-2.4) Total Bilirubin 0.5 MG/DL (0.2-1.0) Aspartate Amino Transf (AST/SGOT) 128 U/L (15-37) H Alanine Aminotransferase (ALT/SGPT) 197 U/L (12-78) H Alkaline Phosphatase 88 U/L (46-116) Total Protein 6.1 G/DL (6.4-8.2) L Albumin 2.1 G/DL (3.4-5.0) L Globulin 4.0 g/dL Albumin/Globulin Ratio 0.5 (1.0-2.7) L Plan Problems: (1) Respiratory distress (2) Renal failure Assessment & Plan: plan HD line soon temp hd consent from daughter (3) Metabolic acidosis (4) NSTEMI (non-ST elevated myocardial infarction) (5) Sepsis Assessment & Plan: okay for tf iv fluids vent via trach weaning vent g tube okay decubitus eval done and local care provided labs noted acidosis plan HD cont abx as per ID will follow with recs thank you DAILY ESTIMATED NEEDS: Needs based on Critical care, wound, AUNDREA/ 62.7kg 22-28 kcals/kg [id number] total kcals 0.8-1.25 (increase w/ renal fxn improvement) g protein/kg 50-78 g total protein 20-25 mL/kg [id number] total fluid mLs NUTRITION DIAGNOSIS: Swallowing difficulty R/T respiratory failure as evidenced by trach/vent dep, PEG dep. CURRENT TF: NPO ENTERAL NUTRITION RECOMMENDATIONS: Nepro @ 35ml/hr x 24 hrs to provide 840ml, 1512kcal, 68g prot, 611ml free water * As medically appropriate, initiate Nepro, rec goal rate of 35ml/hr x 24 hrs * HOB over 30 degrees/ water flush per MD ADDITIONAL RECOMMENDATIONS: * Per SNF: HT=68" and FY=163rmx -> daily calibrated bedscale wt * Monitor renal fxn and lytes, ability to increase est prot needs * NISS w/ TF -> h/o DM * Probiotics for diarrhea * Wound healing: Add Nephrovite x 1, ZnSO4 220mg QD x 10 days Kenji BID w/ TF Benyamini,Rohit Aug 08, 2020 14:28
[2020-08-08 16:00] VITALS: BP 133/87
--- NOTE | 2020-08-08 17:54 | Neurology Progress Note ---
Interim History Interim History ROS Limited/Unobtainable: Yes Interim History remains lethargic Objective Physical Exam Last Vital Signs Date Time Temp Pulse Resp B/P (MAP) Pulse Ox O2 Delivery O2 Flow Rate FiO2 08/08/20 16:00 30 08/08/20 16:00 97.9 101 23 133/87 (102) 99 08/08/20 16:00 Mechanical Ventilator Laboratory Tests Test 08/08/20 04:25 White Blood Count 15.9 K/UL (4.8-10.8) H Red Blood Count 2.88 M/UL (4.70-6.10) L Hemoglobin 8.8 G/DL (14.2-18.0) L Hematocrit 26.3 % (42.0-52.0) L Mean Corpuscular Volume 91 FL (80-99) Mean Corpuscular Hemoglobin 30.7 PG (27.0-31.0) Mean Corpuscular Hemoglobin Concent 33.6 G/DL (32.0-36.0) Red Cell Distribution Width 15.1 % (11.6-14.8) H Platelet Count 160 K/UL (150-450) Mean Platelet Volume 8.6 FL (6.5-10.1) Neutrophils (%) (Auto) % (45.0-75.0) Lymphocytes (%) (Auto) % (20.0-45.0) Monocytes (%) (Auto) % (1.0-10.0) Eosinophils (%) (Auto) % (0.0-3.0) Basophils (%) (Auto) % (0.0-2.0) Differential Total Cells Counted 100 Neutrophils % (Manual) 75 % (45-75) Lymphocytes % (Manual) 14 % (20-45) L Monocytes % (Manual) 6 % (1-10) Eosinophils % (Manual) 2 % (0-3) Basophils % (Manual) 0 % (0-2) Myelocytes % 2 % (0-0) H Band Neutrophils 1 % (0-8) Platelet Estimate Adequate Platelet Morphology Normal Anisocytosis 1+ Sodium Level 141 MMOL/L (136-145) Potassium Level 3.6 MMOL/L (3.5-5.1) Chloride Level 106 MMOL/L (98-107) Carbon Dioxide Level 27 MMOL/L (21-32) Anion Gap 8 mmol/L (5-15) Blood Urea Nitrogen 82 mg/dL (7-18) H Creatinine 1.6 MG/DL (0.55-1.30) H Estimat Glomerular Filtration Rate 43.5 mL/min (>60) Glucose Level 160 MG/DL (74-106) H Calcium Level 8.3 MG/DL (8.5-10.1) L Phosphorus Level 4.2 MG/DL (2.5-4.9) Magnesium Level 1.8 MG/DL (1.8-2.4) Total Bilirubin 0.5 MG/DL (0.2-1.0) Aspartate Amino Transf (AST/SGOT) 128 U/L (15-37) H Alanine Aminotransferase (ALT/SGPT) 197 U/L (12-78) H Alkaline Phosphatase 88 U/L (46-116) Total Protein 6.1 G/DL (6.4-8.2) L Albumin 2.1 G/DL (3.4-5.0) L Globulin 4.0 g/dL Albumin/Globulin Ratio 0.5 (1.0-2.7) L Neurologic Exam Objective trach tachy grimaces to pain lethargic Impression/Recommendations Problems: (1) Respiratory distress (2) Renal failure (3) Metabolic acidosis (4) NSTEMI (non-ST elevated myocardial infarction) (5) Sepsis Diagnostic Impression Encephalopathy, likely metabolic sepsis hx of left thalamic hemorrhage likely from htn icu level map > 65 monitor mental status cont atb fu cultures ok for heparin SC given ich is chronic Pedro Hale MD Aug 08, 2020 17:54
[2020-08-08 20:00] VITALS: BP 119/92
[2020-08-08] MEDS: Dyna-Hex 2% Top Sol 2oz TOPIC SCH (20:49)
[2020-08-09] VITALS: BP 130/87
[2020-08-09 04:00] VITALS: BP 147/98
[2020-08-09] MEDS: metroNIDAZOLE 500mg tab ORAL SCH ×2 (05:46→14:11)
[2020-08-09 06:20] LABS: HEMATOCRIT 27.3 % (42.0-52.0); HEMOGLOBIN 9.3 G/DL (14.2-18.0); MEAN CORPUSCULAR VOLUME 92 FL (80-99); PLATELET COUNT 220 K/UL (150-450); RED BLOOD COUNT 2.95 M/UL (4.70-6.10); RED CELL DISTRIBUTION WIDTH 15.9 % (11.6-14.8); WHITE BLOOD COUNT 19.4 K/UL (4.8-10.8)
--- NOTE | 2020-08-09 06:27 | Hematology/Onc Progress Note ---
Assessment/Plan Assessment/Plan ASSESSMENT AND PLAN: # Leukocytosis is due to sepsis, fevers, leukocytosis. Avoid nephrotoxic drugs. --> ABX Continue Zyvox, cefepime, and Flagyl --> iamging has been reviewed --> as per pulm and id recs --> wbc 22-->18-->12->11->16 # Anemia due to hemodilution --> if lower than 10, get workup --> transfuse prn --> hgb 11-->10-->7.4-->9->8.8 # Thrombocytopenia due to underlying infection --> medications have been reviewed --> 186-->127-->105->160 --> is on hep, monitor --> smear has been reviewed --> hep and hiv neg # Trach, vent. # Dysphagia, on G-tube. 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 # Diabetes. # Hypertension. # Acute renal failure. # GERD. # Dvt ppx heparin sq Appreciate consultation and anil RN Subjective HEENT: Denies: no symptoms, eye pain, blurred vision, tearing, double vision, ear pain, ear discharge, nose pain, nose congestion, throat pain, throat swelling, mouth pain, mouth swelling, other Respiratory: Denies: no symptoms, cough, shortness of breath, SOB with excertion, SOB at rest, sputum, wheezing, other Allergies: Coded Allergies: No Known Allergies (Unverified , 08/01/20) All Systems: reviewed and negative except above Subjective 08/04 remains on vent, abx, labs reviewed, meds noted 08/06 hd prn, no bleeding,with mota and rectal tube, labs noted 08/07 tolerating gt feeds, no new events overnight, anil rn 08/08 nv, vent, tolerating tube feeds, labs noted 08/09 nv, vent, tolerating tube feeds, labs pending Objective Objective Current Medications Medications (Trade) Dose Ordered Sig/Maegan Route PRN Reason Start Time Stop Time Status Last Admin Dose Admin Acetaminophen (Tylenol) 650 mg Q4H PRN GT For Pain 08/02/20 15:45 09/01/20 15:44 08/03/20 02:13 Acetaminophen (Tylenol) 650 mg Q4H PRN GT Temp >100.5 08/02/20 15:45 09/01/20 15:44 Calcium Acetate (Phoslo) 1,334 mg TIAC ORAL 08/05/20 11:30 11/03/20 11:29 08/09/20 05:46 Chlorhexidine Gluconate (Deisy-Hex 2%) 1 applic BIOTEC TOPIC 08/02/20 21:00 10/31/20 20:59 08/08/20 20:49 Dextrose 1,000 ml @ 0 mls/hr Q0M IV 08/02/20 09:15 09/01/20 09:14 Heparin Sodium (Porcine) (Heparin 5000 units/ml) 5,000 units EVERY 12 HOURS SUBQ 08/02/20 21:00 09/16/20 20:59 08/08/20 20:49 Heparin Sodium/ Sodium Chloride (Heparin 1000 units/500ml Premix) 1,000 unit ONCE PRN IV picc line placement 08/07/20 11:45 08/09/20 11:44 Lidocaine HCl (Xylocaine 1% 30ml) 30 ml ONCE PRN INJ picc line placement 08/07/20 11:45 08/09/20 11:44 Metoclopramide HCl (Reglan) 10 mg Q6H PRN IVP Nausea & Vomiting 08/05/20 14:15 09/04/20 14:14 08/07/20 04:38 Metoprolol Tartrate (Lopressor) 25 mg EVERY 8 HOURS GT 08/09/20 06:00 11/07/20 05:59 08/09/20 05:46 Metronidazole (Flagyl) 500 mg EVERY 8 HOURS ORAL 08/02/20 22:00 08/09/20 21:59 08/09/20 05:46 Pantoprazole (Protonix) 40 mg DAILY IVP 08/03/20 09:00 09/02/20 08:59 08/08/20 08:22 Sevelamer Carbonate (Renvela) 800 mg THREE TIMES A DAY NG 08/04/20 13:00 11/02/20 12:59 08/08/20 17:18 Last 24 Hour Vital Signs Date Time Temp Pulse Resp B/P (MAP) Pulse Ox O2 Delivery O2 Flow Rate FiO2 08/09/20 05:46 104 166/104 08/09/20 04:00 93 08/09/20 04:00 Mechanical Ventilator 08/09/20 04:00 30 08/09/20 04:00 98.2 98 20 147/98 (114) 98 08/09/20 02:49 96 17 30 08/09/20 00:00 30 08/09/20 00:00 Mechanical Ventilator 08/09/20 00:00 112 08/09/20 00:00 99.2 116 20 130/87 (101) 98 08/08/20 22:49 129 24 30 08/08/20 20:47 135 122/86 08/08/20 20:00 Mechanical Ventilator 08/08/20 20:00 98.4 116 20 119/92 (101) 98 08/08/20 20:00 30 08/08/20 20:00 119 08/08/20 18:46 115 21 30 08/08/20 16:00 30 08/08/20 16:00 97.9 101 23 133/87 (102) 99 08/08/20 16:00 91 08/08/20 16:00 Mechanical Ventilator 08/08/20 15:12 98 16 30 08/08/20 12:00 98.0 85 18 133/95 (108) 100 08/08/20 12:00 Mechanical Ventilator 08/08/20 12:00 30 08/08/20 11:29 91 08/08/20 10:40 76 16 30 08/08/20 08:22 83 158/96 08/08/20 08:00 30 08/08/20 08:00 92 08/08/20 08:00 97.7 96 16 158/96 (116) 100 08/08/20 08:00 Mechanical Ventilator 08/08/20 06:41 77 16 30 08/08/20 04:00 82 08/08/20 04:00 97.5 83 17 154/95 (114) 100 08/08/20 04:00 30 08/08/20 04:00 Mechanical Ventilator 08/08/20 02:56 85 16 30 08/08/20 00:45 83 16 30 08/08/20 00:00 97.7 82 17 137/88 (104) 100 08/08/20 00:00 Mechanical Ventilator 08/08/20 00:00 30 08/08/20 00:00 97.7 82 17 137/88 (104) 100 08/07/20 23:51 81 08/07/20 21:03 90 138/93 08/07/20 20:00 97.5 78 17 138/93 (108) 98 08/07/20 20:00 Mechanical Ventilator 08/07/20 20:00 30 08/07/20 20:00 82 08/07/20 18:40 86 16 30 08/07/20 16:00 98.1 97 16 139/91 (107) 100 08/07/20 16:00 30 08/07/20 16:00 89 08/07/20 16:00 Mechanical Ventilator 08/07/20 15:09 95 20 30 08/07/20 12:00 Mechanical Ventilator 08/07/20 12:00 91 08/07/20 12:00 97.8 96 18 138/91 (107) 100 08/07/20 12:00 30 08/07/20 11:08 72 19 30 08/07/20 08:18 93 123/89 08/07/20 08:00 98 08/07/20 08:00 30 08/07/20 08:00 97.8 93 16 123/89 (100) 100 08/07/20 08:00 Mechanical Ventilator 08/07/20 07:11 88 16 30 08/07/20 06:40 95 20 30 Intake and Output 08/08/20 08/09/20 19:00 07:00 Intake Total 570 ml 470 ml Output Total 650 ml 520 ml Balance -80 ml -50 ml Intake Free Water 90 ml 30 ml Tube Feeding 480 ml 440 ml Output Urine Total 450 ml 450 ml Stool Total 200 ml 70 ml Labs Test 08/06/20 08:30 08/06/20 11:51 08/06/20 15:50 08/07/20 08:27 White Blood Count 11.5 K/UL (4.8-10.8) Red Blood Count 2.94 M/UL (4.70-6.10) Hemoglobin 9.1 G/DL (14.2-18.0) Hematocrit 24.9 % (42.0-52.0) Mean Corpuscular Volume 85 FL (80-99) Mean Corpuscular Hemoglobin 31.0 PG (27.0-31.0) Mean Corpuscular Hemoglobin Concent 36.5 G/DL (32.0-36.0) Red Cell Distribution Width 14.3 % (11.6-14.8) Platelet Count 123 K/UL (150-450) Mean Platelet Volume 12.5 FL (6.5-10.1) Neutrophils (%) (Auto) % (45.0-75.0) Lymphocytes (%) (Auto) % (20.0-45.0) Monocytes (%) (Auto) % (1.0-10.0) Eosinophils (%) (Auto) % (0.0-3.0) Basophils (%) (Auto) % (0.0-2.0) Differential Total Cells Counted 100 Neutrophils % (Manual) 83 % (45-75) Lymphocytes % (Manual) 8 % (20-45) Monocytes % (Manual) 6 % (1-10) Eosinophils % (Manual) 1 % (0-3) Basophils % (Manual) 0 % (0-2) Band Neutrophils 2 % (0-8) Platelet Estimate Decreased Platelet Morphology Normal Anisocytosis 1+ Sodium Level 140 MMOL/L (136-145) 143 MMOL/L (136-145) Potassium Level 1.9 MMOL/L (3.5-5.1) 3.3 MMOL/L (3.5-5.1) 3.3 MMOL/L (3.5-5.1) Chloride Level 101 MMOL/L (98-107) 106 MMOL/L (98-107) Carbon Dioxide Level 27 MMOL/L (21-32) 28 MMOL/L (21-32) Anion Gap 11 mmol/L (5-15) 9 mmol/L (5-15) Blood Urea Nitrogen 91 mg/dL (7-18) 84 mg/dL (7-18) Creatinine 1.7 MG/DL (0.55-1.30) 1.7 MG/DL (0.55-1.30) Estimat Glomerular Filtration Rate 40.5 mL/min (>60) 40.5 mL/min (>60) Glucose Level 127 MG/DL (74-106) 170 MG/DL (74-106) Calcium Level 8.3 MG/DL (8.5-10.1) 8.3 MG/DL (8.5-10.1) Phosphorus Level 6.6 MG/DL (2.5-4.9) Magnesium Level 2.0 MG/DL (1.8-2.4) Hepatitis A IgM Antibody Negative (Negative) Hepatitis B Surface Antigen Negative (Negative) Hepatitis B Core IgM Antibody Negative (Negative) Hepatitis C Antibody <0.1 s/co ratio HIV (1&2) Antibody Rapid Negative (NEGATIVE) POC Whole Blood Glucose 140 MG/DL (74-106) Test 08/08/20 04:25 08/09/20 03:24 White Blood Count 15.9 K/UL (4.8-10.8) Red Blood Count 2.88 M/UL (4.70-6.10) Hemoglobin 8.8 G/DL (14.2-18.0) Hematocrit 26.3 % (42.0-52.0) Mean Corpuscular Volume 91 FL (80-99) Mean Corpuscular Hemoglobin 30.7 PG (27.0-31.0) Mean Corpuscular Hemoglobin Concent 33.6 G/DL (32.0-36.0) Red Cell Distribution Width 15.1 % (11.6-14.8) Platelet Count 160 K/UL (150-450) Mean Platelet Volume 8.6 FL (6.5-10.1) Neutrophils (%) (Auto) % (45.0-75.0) Lymphocytes (%) (Auto) % (20.0-45.0) Monocytes (%) (Auto) % (1.0-10.0) Eosinophils (%) (Auto) % (0.0-3.0) Basophils (%) (Auto) % (0.0-2.0) Differential Total Cells Counted 100 Neutrophils % (Manual) 75 % (45-75) Lymphocytes % (Manual) 14 % (20-45) Monocytes % (Manual) 6 % (1-10) Eosinophils % (Manual) 2 % (0-3) Basophils % (Manual) 0 % (0-2) Myelocytes % 2 % (0-0) Band Neutrophils 1 % (0-8) Platelet Estimate Adequate Platelet Morphology Normal Anisocytosis 1+ Sodium Level 141 MMOL/L (136-145) Potassium Level 3.6 MMOL/L (3.5-5.1) Chloride Level 106 MMOL/L (98-107) Carbon Dioxide Level 27 MMOL/L (21-32) Anion Gap 8 mmol/L (5-15) Blood Urea Nitrogen 82 mg/dL (7-18) Creatinine 1.6 MG/DL (0.55-1.30) Estimat Glomerular Filtration Rate 43.5 mL/min (>60) Glucose Level 160 MG/DL (74-106) Calcium Level 8.3 MG/DL (8.5-10.1) Phosphorus Level 4.2 MG/DL (2.5-4.9) Magnesium Level 1.8 MG/DL (1.8-2.4) Total Bilirubin 0.5 MG/DL (0.2-1.0) Aspartate Amino Transf (AST/SGOT) 128 U/L (15-37) Alanine Aminotransferase (ALT/SGPT) 197 U/L (12-78) Alkaline Phosphatase 88 U/L (46-116) Total Protein 6.1 G/DL (6.4-8.2) Albumin 2.1 G/DL (3.4-5.0) Globulin 4.0 g/dL Albumin/Globulin Ratio 0.5 (1.0-2.7) Height (Feet): 5 Height (Inches): 7.00 Weight (Pounds): 175 Objective Physical Exam General Appearance: lethargic Lines, tubes and drains: trach+++ vent++++ HEENT: normocephalic, atraumatic, mucous membranes moist Neck: normal alignment Respiratory/Chest: rhonchi - bilaterally Cardiovascular/Chest: normal peripheral pulses, regular rhythm Abdomen: soft, no mass, feeding tube Extremities: no edema, no cyanosis Skin Exam: normal pigmentation, warm/dry Neurologic: unresponsiveness Karthik Mercedes MD Aug 09, 2020 06:27
[2020-08-09 06:50] LABS: ALBUMIN 2.3 G/DL (3.4-5.0); ALBUMIN/GLOBULIN RATIO 0.6 (1.0-2.7); BILIRUBIN,TOTAL 0.4 MG/DL (0.2-1.0); CALCIUM 8.8 MG/DL (8.5-10.1); CREATININE 1.5 MG/DL (0.55-1.30); PHOSPHORUS 3.1 MG/DL (2.5-4.9); POTASSIUM 3.6 MMOL/L (3.5-5.1)
[2020-08-09 08:00] VITALS: BP 146/91
[2020-08-09] MEDS: Pantoprazole Inj IVP SCH (09:20)
[2020-08-09] MEDS: Renvela 800mg Pkt NG SCH ×2 (09:20→11:59)
[2020-08-09] MEDS: Heparin 5000 units/ml inj SUBQ SCH ×2 (09:24→21:10)
--- NOTE | 2020-08-09 09:48 | Nephrology Progress Note ---
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 per daughter #Uremia #Anemia #Pneumonia #sepsis - per discussion with daughter - HD is in line with goals of care - for now hold off HD- Cr seems to be stabilizing - will remove renuka pending revolution of renal function - monitor labs - DC bicarb drip - add sevelamer - monitor ABG - antibiotics per ID - avoid nephrotoxins - monitor UOP - monitor electrolytes time spent 65 min Subjective ROS Limited/Unobtainable: Yes Subjective Cr stable hold HD for now Objective Objective Last 24 Hour Vital Signs Date Time Temp Pulse Resp B/P (MAP) Pulse Ox O2 Delivery O2 Flow Rate FiO2 08/09/20 08:00 96.6 100 21 146/91 (109) 100 08/09/20 05:46 104 166/104 08/09/20 04:00 93 08/09/20 04:00 Mechanical Ventilator 08/09/20 04:00 30 08/09/20 04:00 98.2 98 20 147/98 (114) 98 08/09/20 02:49 96 17 30 08/09/20 00:00 30 08/09/20 00:00 Mechanical Ventilator 08/09/20 00:00 112 08/09/20 00:00 99.2 116 20 130/87 (101) 98 08/08/20 22:49 129 24 30 08/08/20 20:47 135 122/86 08/08/20 20:00 Mechanical Ventilator 08/08/20 20:00 98.4 116 20 119/92 (101) 98 08/08/20 20:00 30 08/08/20 20:00 119 08/08/20 18:46 115 21 30 08/08/20 16:00 30 08/08/20 16:00 97.9 101 23 133/87 (102) 99 08/08/20 16:00 91 08/08/20 16:00 Mechanical Ventilator 08/08/20 15:12 98 16 30 08/08/20 12:00 98.0 85 18 133/95 (108) 100 08/08/20 12:00 Mechanical Ventilator 08/08/20 12:00 30 08/08/20 11:29 91 08/08/20 10:40 76 16 30 Intake and Output 08/08/20 08/09/20 19:00 07:00 Intake Total 570 ml 470 ml Output Total 650 ml 520 ml Balance -80 ml -50 ml Intake Free Water 90 ml 30 ml Tube Feeding 480 ml 440 ml Output Urine Total 450 ml 450 ml Stool Total 200 ml 70 ml Laboratory Tests 08/09/20 03:24: White Blood Count 19.4H, Red Blood Count 2.95L, Hemoglobin 9.3L, Hematocrit 27.3L, Mean Corpuscular Volume 92, Mean Corpuscular Hemoglobin 31.7H, Mean Corpuscular Hemoglobin Concent 34.3, Red Cell Distribution Width 15.9H, Platelet Count 220, Mean Platelet Volume 7.5, Neutrophils (%) (Auto) , Lymphocytes (%) (Auto) , Monocytes (%) (Auto) , Eosinophils (%) (Auto) , Basophils (%) (Auto) , Differential Total Cells Counted 100, Neutrophils % (Manual) 80H, Lymphocytes % (Manual) 7L, Monocytes % (Manual) 4, Eosinophils % (Manual) 2, Basophils % (Manual) 0, Metamyelocytes % 1H, Myelocytes % 3H, Band Neutrophils 3, Platelet Estimate Adequate, Platelet Morphology Normal, Anisocytosis 1+, Sodium Level 143, Potassium Level 3.6, Chloride Level 106, Carbon Dioxide Level 26, Anion Gap 11, Blood Urea Nitrogen 77H, Creatinine 1.5H, Estimat Glomerular Filtration Rate 46.8, Glucose Level 151H, Calcium Level 8.8, Phosphorus Level 3.1, Magnesium Level 2.2, Total Bilirubin 0.4, Aspartate Amino Transf (AST/SGOT) 96H, Alanine Aminotransferase (ALT/SGPT) 199H, Alkaline Phosphatase 98, Total Protein 6.2L, Albumin 2.3L, Globulin 3.9, Albumin/Globulin Ratio 0.6L Height (Feet): 5 Height (Inches): 7.00 Weight (Pounds): 175 Objective General Appearance: other - non interactive Cardiovascular: normal rate, regular rhythm Respiratory/Chest: no respiratory distress, other - Trach on Vent Abdomen: soft, other - Rectal tube in place Extremities: other - bedbound Neurologic: other - non interactive at baseline Skin: warm/dry Gladys Sherman M.D. Aug 09, 2020 09:48
[2020-08-09 11:57] VITALS: BP 155/104
--- NOTE | 2020-08-09 13:38 | Internal Med Progress Note ---
Subjective Physician Name Mahogany Velazco Attending Physician Fran Llamas MD Current Medications Medications (Trade) Dose Ordered Sig/Maegan Route PRN Reason Start Time Stop Time Status Last Admin Dose Admin Acetaminophen (Tylenol) 650 mg Q4H PRN GT For Pain 08/02/20 15:45 09/01/20 15:44 08/03/20 02:13 Acetaminophen (Tylenol) 650 mg Q4H PRN GT Temp >100.5 08/02/20 15:45 09/01/20 15:44 Calcium Acetate (Phoslo) 1,334 mg TIAC ORAL 08/05/20 11:30 11/03/20 11:29 08/09/20 11:42 Chlorhexidine Gluconate (Deisy-Hex 2%) 1 applic BIOTEC TOPIC 08/02/20 21:00 10/31/20 20:59 08/08/20 20:49 Dextrose 1,000 ml @ 0 mls/hr Q0M IV 08/02/20 09:15 09/01/20 09:14 Heparin Sodium (Porcine) (Heparin 5000 units/ml) 5,000 units EVERY 12 HOURS SUBQ 08/02/20 21:00 09/16/20 20:59 08/09/20 09:24 Metoclopramide HCl (Reglan) 10 mg Q6H PRN IVP Nausea & Vomiting 08/05/20 14:15 09/04/20 14:14 08/07/20 04:38 Metoprolol Tartrate (Lopressor) 25 mg EVERY 8 HOURS GT 08/09/20 06:00 11/07/20 05:59 08/09/20 05:46 Metronidazole (Flagyl) 500 mg EVERY 8 HOURS ORAL 08/02/20 22:00 08/09/20 21:59 08/09/20 05:46 Pantoprazole (Protonix) 40 mg DAILY IVP 08/03/20 09:00 09/02/20 08:59 08/09/20 09:20 Sevelamer Carbonate (Renvela) 800 mg THREE TIMES A DAY NG 08/04/20 13:00 11/02/20 12:59 08/09/20 11:59 Allergies: Coded Allergies: No Known Allergies (Unverified , 08/01/20) Subjective Remains on Vent, Fi02 30%; Vitals stable. WBC climbing today. Will renew Cefepime and get CXR Objective Last Vital Signs Date Time Temp Pulse Resp B/P (MAP) Pulse Ox O2 Delivery O2 Flow Rate FiO2 08/09/20 12:00 Mechanical Ventilator 08/09/20 12:00 30 08/09/20 11:57 97.7 100 22 155/104 (121) 99 General Appearance: no apparent distress EENT: other - Trach Cardiovascular: normal rate, regular rhythm Respiratory/Chest: other - Fi02 30%, on Vent Abdomen: soft, other - rectal tube Extremities: normal range of motion Neurologic: other - coma like state Skin: warm/dry Laboratory Tests Test 08/09/20 03:24 White Blood Count 19.4 K/UL (4.8-10.8) H Red Blood Count 2.95 M/UL (4.70-6.10) L Hemoglobin 9.3 G/DL (14.2-18.0) L Hematocrit 27.3 % (42.0-52.0) L Mean Corpuscular Volume 92 FL (80-99) Mean Corpuscular Hemoglobin 31.7 PG (27.0-31.0) H Mean Corpuscular Hemoglobin Concent 34.3 G/DL (32.0-36.0) Red Cell Distribution Width 15.9 % (11.6-14.8) H Platelet Count 220 K/UL (150-450) Mean Platelet Volume 7.5 FL (6.5-10.1) Neutrophils (%) (Auto) % (45.0-75.0) Lymphocytes (%) (Auto) % (20.0-45.0) Monocytes (%) (Auto) % (1.0-10.0) Eosinophils (%) (Auto) % (0.0-3.0) Basophils (%) (Auto) % (0.0-2.0) Differential Total Cells Counted 100 Neutrophils % (Manual) 80 % (45-75) H Lymphocytes % (Manual) 7 % (20-45) L Monocytes % (Manual) 4 % (1-10) Eosinophils % (Manual) 2 % (0-3) Basophils % (Manual) 0 % (0-2) Metamyelocytes % 1 % (0-0) H Myelocytes % 3 % (0-0) H Band Neutrophils 3 % (0-8) Platelet Estimate Adequate Platelet Morphology Normal Anisocytosis 1+ Sodium Level 143 MMOL/L (136-145) Potassium Level 3.6 MMOL/L (3.5-5.1) Chloride Level 106 MMOL/L (98-107) Carbon Dioxide Level 26 MMOL/L (21-32) Anion Gap 11 mmol/L (5-15) Blood Urea Nitrogen 77 mg/dL (7-18) H Creatinine 1.5 MG/DL (0.55-1.30) H Estimat Glomerular Filtration Rate 46.8 mL/min (>60) Glucose Level 151 MG/DL (74-106) H Calcium Level 8.8 MG/DL (8.5-10.1) Phosphorus Level 3.1 MG/DL (2.5-4.9) Magnesium Level 2.2 MG/DL (1.8-2.4) Total Bilirubin 0.4 MG/DL (0.2-1.0) Aspartate Amino Transf (AST/SGOT) 96 U/L (15-37) H Alanine Aminotransferase (ALT/SGPT) 199 U/L (12-78) H Alkaline Phosphatase 98 U/L (46-116) Total Protein 6.2 G/DL (6.4-8.2) L Albumin 2.3 G/DL (3.4-5.0) L Globulin 3.9 g/dL Albumin/Globulin Ratio 0.6 (1.0-2.7) L Intake and Output 08/08/20 08/09/20 18:59 06:59 Intake Total 570 ml 510 ml Output Total 650 ml 520 ml Balance -80 ml -10 ml Intake Free Water 90 ml 30 ml Tube Feeding 480 ml 480 ml Output Urine Total 450 ml 450 ml Stool Total 200 ml 70 ml Assessment/Plan Assessment/Plan #Acute on Chronic Resp Failure/Trach and Vent Dependent #Sepsis- Unclear Source, Rule out VAP S/P Zosyn; Now on Cefepime and Flagyl Repeat CXR 08/09 Given Climbing UA; F/U wtih ID recs ( Dorene) Cultures thus far negative #Acute Renal Failure w/ Associated AGMA , Requiring HD Appreciate Nephro-Pirouz Renal function is improving, can likely d/c HD Monitor urine output Avoid Nephrotoxic Agents #NSTEMI-Demand Ischemia Appreciate Dr. 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 Aug 09, 2020 13:38
--- NOTE | 2020-08-09 14:15 | General Progress Note ---
Subjective Date patient seen: Aug 09, 2020 Time patient seen: 14:16 Allergies: Coded Allergies: No Known Allergies (Unverified , 08/01/20) Subjective Remains on Vent, Fi02 30%; Vitals stable. WBC climbing today. Will renew Cefepime and get CXR Objective Last 24 Hour Vital Signs Date Time Temp Pulse Resp B/P (MAP) Pulse Ox O2 Delivery O2 Flow Rate FiO2 08/09/20 12:00 Mechanical Ventilator 08/09/20 12:00 30 08/09/20 11:57 97.7 100 22 155/104 (121) 99 08/09/20 11:30 80 08/09/20 11:05 90 20 30 08/09/20 08:00 96.6 100 21 146/91 (109) 100 08/09/20 08:00 30 08/09/20 08:00 Mechanical Ventilator 08/09/20 07:46 80 08/09/20 07:15 85 19 30 08/09/20 05:46 104 166/104 08/09/20 04:00 93 08/09/20 04:00 Mechanical Ventilator 08/09/20 04:00 30 08/09/20 04:00 98.2 98 20 147/98 (114) 98 08/09/20 02:49 96 17 30 08/09/20 00:00 30 08/09/20 00:00 Mechanical Ventilator 08/09/20 00:00 112 08/09/20 00:00 99.2 116 20 130/87 (101) 98 08/08/20 22:49 129 24 30 08/08/20 20:47 135 122/86 08/08/20 20:00 Mechanical Ventilator 08/08/20 20:00 98.4 116 20 119/92 (101) 98 08/08/20 20:00 30 08/08/20 20:00 119 08/08/20 18:46 115 21 30 08/08/20 16:00 30 08/08/20 16:00 97.9 101 23 133/87 (102) 99 08/08/20 16:00 91 08/08/20 16:00 Mechanical Ventilator 08/08/20 15:12 98 16 30 l Intake and Output 08/08/20 08/09/20 19:00 07:00 Intake Total 570 ml 510 ml Output Total 650 ml 520 ml Balance -80 ml -10 ml Intake Free Water 90 ml 30 ml Tube Feeding 480 ml 480 ml Output Urine Total 450 ml 450 ml Stool Total 200 ml 70 ml Laboratory Tests 08/09/20 03:24: White Blood Count 19.4H, Red Blood Count 2.95L, Hemoglobin 9.3L, Hematocrit 27.3L, Mean Corpuscular Volume 92, Mean Corpuscular Hemoglobin 31.7H, Mean Corpuscular Hemoglobin Concent 34.3, Red Cell Distribution Width 15.9H, Platelet Count 220, Mean Platelet Volume 7.5, Neutrophils (%) (Auto) , Lymphocytes (%) (Auto) , Monocytes (%) (Auto) , Eosinophils (%) (Auto) , Basophils (%) (Auto) , Differential Total Cells Counted 100, Neutrophils % (Manual) 80H, Lymphocytes % (Manual) 7L, Monocytes % (Manual) 4, Eosinophils % (Manual) 2, Basophils % (Manual) 0, Metamyelocytes % 1H, Myelocytes % 3H, Band Neutrophils 3, Platelet Estimate Adequate, Platelet Morphology Normal, Anisocytosis 1+, Sodium Level 143, Potassium Level 3.6, Chloride Level 106, Carbon Dioxide Level 26, Anion Gap 11, Blood Urea Nitrogen 77H, Creatinine 1.5H, Estimat Glomerular Filtration Rate 46.8, Glucose Level 151H, Calcium Level 8.8, Phosphorus Level 3.1, Magnesium Level 2.2, Total Bilirubin 0.4, Aspartate Amino Transf (AST/SGOT) 96H, Alanine Aminotransferase (ALT/SGPT) 199H, Alkaline Phosphatase 98, Total Protein 6.2L, Albumin 2.3L, Globulin 3.9, Albumin/Globulin Ratio 0.6L Height (Feet): 5 Height (Inches): 7.00 Weight (Pounds): 175 Assessment/Plan Assessment/Plan: #Acute on Chronic Resp Failure/Trach and Vent Dependent #Sepsis- Unclear Source, Rule out VAP S/P Zosyn; Now on Cefepime and Flagyl Repeat CXR 08/09 Given Climbing UA; F/U wtih ID recs ( Dorene) Cultures thus far negative #Acute Renal Failure w/ Associated AGMA , Requiring HD Appreciate Nephro-Pirouz Renal function is improving, can likely d/c HD Monitor urine output Avoid Nephrotoxic Agents Phosphlo/Renvela #NSTEMI-Demand Ischemia Appreciate Dr. 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 Aug 09, 2020 14:15
--- NOTE | 2020-08-09 14:27 | Pulmonology Progress Note ---
Subjective ROS Limited/Unobtainable: Yes Interval Events: No new events Constitutional: Reports: other - trach and vent ; Denies: fever HEENT: Repors: no symptoms Respiratory: Reports: no symptoms Cardiovascular: Reports: no symptoms Gastrointestinal/Abdominal: Denies: nausea, vomiting Psychiatric: Denies: depression Skin: Denies: rash Musculoskeletal: Denies: pain Allergies: Coded Allergies: No Known Allergies (Unverified , 08/01/20) All Systems: reviewed and negative except above Objective Last 24 Hour Vital Signs Date Time Temp Pulse Resp B/P (MAP) Pulse Ox O2 Delivery O2 Flow Rate FiO2 08/09/20 14:11 100 155/104 08/09/20 12:00 Mechanical Ventilator 08/09/20 12:00 30 08/09/20 11:57 97.7 100 22 155/104 (121) 99 08/09/20 11:30 80 08/09/20 11:05 90 20 30 08/09/20 08:00 96.6 100 21 146/91 (109) 100 08/09/20 08:00 30 08/09/20 08:00 Mechanical Ventilator 08/09/20 07:46 80 08/09/20 07:15 85 19 30 08/09/20 05:46 104 166/104 08/09/20 04:00 93 08/09/20 04:00 Mechanical Ventilator 08/09/20 04:00 30 08/09/20 04:00 98.2 98 20 147/98 (114) 98 08/09/20 02:49 96 17 30 08/09/20 00:00 30 08/09/20 00:00 Mechanical Ventilator 08/09/20 00:00 112 08/09/20 00:00 99.2 116 20 130/87 (101) 98 08/08/20 22:49 129 24 30 08/08/20 20:47 135 122/86 08/08/20 20:00 Mechanical Ventilator 08/08/20 20:00 98.4 116 20 119/92 (101) 98 08/08/20 20:00 30 08/08/20 20:00 119 08/08/20 18:46 115 21 30 08/08/20 16:00 30 08/08/20 16:00 97.9 101 23 133/87 (102) 99 08/08/20 16:00 91 08/08/20 16:00 Mechanical Ventilator 08/08/20 15:12 98 16 30 Intake and Output 08/08/20 08/09/20 19:00 07:00 Intake Total 570 ml 510 ml Output Total 650 ml 520 ml Balance -80 ml -10 ml Intake Free Water 90 ml 30 ml Tube Feeding 480 ml 480 ml Output Urine Total 450 ml 450 ml Stool Total 200 ml 70 ml General Appearance: WD/WN HEENT: normocephalic, status post trach Respiratory: chest wall non-tender Cardiovascular: normal peripheral pulses, normal rate Abdomen: normal bowel sounds Laboratory Tests 08/09/20 03:24: White Blood Count 19.4H, Red Blood Count 2.95L, Hemoglobin 9.3L, Hematocrit 27.3L, Mean Corpuscular Volume 92, Mean Corpuscular Hemoglobin 31.7H, Mean Corpuscular Hemoglobin Concent 34.3, Red Cell Distribution Width 15.9H, Platelet Count 220, Mean Platelet Volume 7.5, Neutrophils (%) (Auto) , Lymphocytes (%) (A uto) , Monocytes (%) (Auto) , Eosinophils (%) (Auto) , Basophils (%) (Auto) , Differential Total Cells Counted 100, Neutrophils % (Manual) 80H, Lymphocytes % (Manual) 7L, Monocytes % (Manual) 4, Eosinophils % (Manual) 2, Basophils % (Manual) 0, Metamyelocytes % 1H, Myelocytes % 3H, Band Neutrophils 3, Platelet Estimate Adequate, Platelet Morphology Normal, Anisocytosis 1+, Sodium Level 143, Potassium Level 3.6, Chloride Level 106, Carbon Dioxide Level 26, Anion Gap 11, Blood Urea Nitrogen 77H, Creatinine 1.5H, Estimat Glomerular Filtration Rate 46.8, Glucose Level 151H, Calcium Level 8.8, Phosphorus Level 3.1, Magnesium Level 2.2, Total Bilirubin 0.4, Aspartate Amino Transf (AST/SGOT) 96H, Alanine Aminotransferase (ALT/SGPT) 199H, Alkaline Phosphatase 98, Total Protein 6.2L, Albumin 2.3L, Globulin 3.9, Albumin/Globulin Ratio 0.6L Current Medications Medications (Trade) Dose Ordered Sig/Maegan Route PRN Reason Start Time Stop Time Status Last Admin Dose Admin Acetaminophen (Tylenol) 650 mg Q4H PRN GT For Pain 08/02/20 15:45 09/01/20 15:44 08/03/20 02:13 Acetaminophen (Tylenol) 650 mg Q4H PRN GT Temp >100.5 08/02/20 15:45 09/01/20 15:44 Calcium Acetate (Phoslo) 1,334 mg TIAC ORAL 08/05/20 11:30 11/03/20 11:29 08/09/20 11:42 Cefepime HCl 1 gm/ Dextrose 55 ml @ 110 mls/hr Q24H IVPB 08/09/20 15:00 08/16/20 14:59 Chlorhexidine Gluconate (Deisy-Hex 2%) 1 applic BIOTEC TOPIC 08/02/20 21:00 10/31/20 20:59 08/08/20 20:49 Dextrose 1,000 ml @ 0 mls/hr Q0M IV 08/02/20 09:15 09/01/20 09:14 Heparin Sodium (Porcine) (Heparin 5000 units/ml) 5,000 units EVERY 12 HOURS SUBQ 08/02/20 21:00 09/16/20 20:59 08/09/20 09:24 Metoclopramide HCl (Reglan) 10 mg Q6H PRN IVP Nausea & Vomiting 08/05/20 14:15 09/04/20 14:14 08/07/20 04:38 Metoprolol Tartrate (Lopressor) 25 mg EVERY 8 HOURS GT 08/09/20 06:00 11/07/20 05:59 08/09/20 14:11 Metronidazole (Flagyl) 500 mg EVERY 8 HOURS ORAL 08/02/20 22:00 08/09/20 21:59 08/09/20 14:11 Pantoprazole (Protonix) 40 mg DAILY IVP 08/03/20 09:00 09/02/20 08:59 08/09/20 09:20 Sevelamer Carbonate (Renvela) 800 mg THREE TIMES A DAY NG 08/04/20 13:00 11/02/20 12:59 08/09/20 11:59 Assessment/Plan Assessment/Plan IMPRESSION: 1. Chronic respiratory failure. Chronic tracheostomy 2. Metabolic acidosis. On hemodialysis 3. Renal failure. HD per renal 4. Leukocytosis. 5. Sepsis. Source unclear; C dif negative; CXR clear DISCUSSION: Agree with broad spectrum antibiotics. I will continue AC mode. Currently FiO2 30%; PEEP 5 Discontinued bicarbonate supplementation. Noted plans for HD Potassium supplementation per nephrology Hemodynamically stable I will follow carefully. Jeromy Ryan Omar Syed MD Aug 09, 2020 14:27
[2020-08-09] MEDS ORDERED: Cefepime HCl 1 GM in D5W 55 ML IVPB SCH (15:00)
--- NOTE | 2020-08-09 15:22 | Cardiac Electrophysiology PN ---
Assessment/Plan Assessment/Plan 1. Troponin elevation. Levels are coming down at 0.8 to 0.5. Due to renal failure with BUN of 343, creatinine of 4.1 as well as sepsis with white count of 22,000. His EKG also shows sinus rhythm with inferolateral ischemia. On Lopressor 12.5 bid. 2. Shortness of breath with respiratory failure, status post tracheostomy, on the ventilator with 30% FiO2. 3. Dysphagia, status post PEG placement. 4. Acute renal failure with BUN of 343, creatinine of 4.1. S/P Right IJ Nicholas catheter 08/07. Had first HD on 08/03 5. Diabetes. 6. History of left thalamic hemorrhage. Subjective Subjective S/P Right IJ Nicholas catheter placement. On the vent with 30% Fio2 via trach. HR 100s Objective Last 24 Hour Vital Signs Date Time Temp Pulse Resp B/P (MAP) Pulse Ox O2 Delivery O2 Flow Rate FiO2 08/09/20 14:11 100 155/104 08/09/20 12:00 Mechanical Ventilator 08/09/20 12:00 30 08/09/20 11:57 97.7 100 22 155/104 (121) 99 08/09/20 11:30 80 08/09/20 11:05 90 20 30 08/09/20 08:00 96.6 100 21 146/91 (109) 100 08/09/20 08:00 30 08/09/20 08:00 Mechanical Ventilator 08/09/20 07:46 80 08/09/20 07:15 85 19 30 08/09/20 05:46 104 166/104 08/09/20 04:00 93 08/09/20 04:00 Mechanical Ventilator 08/09/20 04:00 30 08/09/20 04:00 98.2 98 20 147/98 (114) 98 08/09/20 02:49 96 17 30 08/09/20 00:00 30 08/09/20 00:00 Mechanical Ventilator 08/09/20 00:00 112 08/09/20 00:00 99.2 116 20 130/87 (101) 98 08/08/20 22:49 129 24 30 08/08/20 20:47 135 122/86 08/08/20 20:00 Mechanical Ventilator 08/08/20 20:00 98.4 116 20 119/92 (101) 98 08/08/20 20:00 30 08/08/20 20:00 119 08/08/20 18:46 115 21 30 08/08/20 16:00 30 08/08/20 16:00 97.9 101 23 133/87 (102) 99 08/08/20 16:00 91 08/08/20 16:00 Mechanical Ventilator Intake and Output 08/08/20 08/09/20 19:00 07:00 Intake Total 570 ml 510 ml Output Total 650 ml 520 ml Balance -80 ml -10 ml Intake Free Water 90 ml 30 ml Tube Feeding 480 ml 480 ml Output Urine Total 450 ml 450 ml Stool Total 200 ml 70 ml Laboratory Tests Test 08/09/20 03:24 White Blood Count 19.4 K/UL (4.8-10.8) H Red Blood Count 2.95 M/UL (4.70-6.10) L Hemoglobin 9.3 G/DL (14.2-18.0) L Hematocrit 27.3 % (42.0-52.0) L Mean Corpuscular Volume 92 FL (80-99) Mean Corpuscular Hemoglobin 31.7 PG (27.0-31.0) H Mean Corpuscular Hemoglobin Concent 34.3 G/DL (32.0-36.0) Red Cell Distribution Width 15.9 % (11.6-14.8) H Platelet Count 220 K/UL (150-450) Mean Platelet Volume 7.5 FL (6.5-10.1) Neutrophils (%) (Auto) % (45.0-75.0) Lymphocytes (%) (Auto) % (20.0-45.0) Monocytes (%) (Auto) % (1.0-10.0) Eosinophils (%) (Auto) % (0.0-3.0) Basophils (%) (Auto) % (0.0-2.0) Differential Total Cells Counted 100 Neutrophils % (Manual) 80 % (45-75) H Lymphocytes % (Manual) 7 % (20-45) L Monocytes % (Manual) 4 % (1-10) Eosinophils % (Manual) 2 % (0-3) Basophils % (Manual) 0 % (0-2) Metamyelocytes % 1 % (0-0) H Myelocytes % 3 % (0-0) H Band Neutrophils 3 % (0-8) Platelet Estimate Adequate Platelet Morphology Normal Anisocytosis 1+ Sodium Level 143 MMOL/L (136-145) Potassium Level 3.6 MMOL/L (3.5-5.1) Chloride Level 106 MMOL/L (98-107) Carbon Dioxide Level 26 MMOL/L (21-32) Anion Gap 11 mmol/L (5-15) Blood Urea Nitrogen 77 mg/dL (7-18) H Creatinine 1.5 MG/DL (0.55-1.30) H Estimat Glomerular Filtration Rate 46.8 mL/min (>60) Glucose Level 151 MG/DL (74-106) H Calcium Level 8.8 MG/DL (8.5-10.1) Phosphorus Level 3.1 MG/DL (2.5-4.9) Magnesium Level 2.2 MG/DL (1.8-2.4) Total Bilirubin 0.4 MG/DL (0.2-1.0) Aspartate Amino Transf (AST/SGOT) 96 U/L (15-37) H Alanine Aminotransferase (ALT/SGPT) 199 U/L (12-78) H Alkaline Phosphatase 98 U/L (46-116) Total Protein 6.2 G/DL (6.4-8.2) L Albumin 2.3 G/DL (3.4-5.0) L Globulin 3.9 g/dL Albumin/Globulin Ratio 0.6 (1.0-2.7) L Objective HEAD AND NECK: Status post tracheostomy with no JVD. LUNGS: Coarse rhonchi. CARDIOVASCULAR: Regular S1 and S2 with no gallop. ABDOMEN: Status post G-tube. EXTREMITIES: No pitting edema. Gregorio Mari MD Aug 09, 2020 15:22
[2020-08-09 16:00] VITALS: BP 152/92
--- NOTE | 2020-08-09 16:52 | Diagnostic Imaging Report ---
Indication: Shortness of breath Technique: One view of the chest Comparison: 08/07/2020 Findings: Jugular temporary dialysis catheter is again demonstrated. There is some hazy very focal infiltrate in the left infrahilar region. The remainder of the lungs and pleural spaces remain clear. Impression: Very focal left infrahilar infiltrate, new since prior study, may indicate early pneumonia
[2020-08-09] MEDS: Renvela 800mg Pkt GT SCH (17:02)
--- NOTE | 2020-08-09 17:35 | Surgery Progress Note ---
Surgery Progress Note Subjective Procedure Performed right femoral temporary hemodialysis catheter insertion Additional Comments ill appearing no acute events labs noted micro reviewed Objective Last 24 Hour Vital Signs Date Time Temp Pulse Resp B/P (MAP) Pulse Ox O2 Delivery O2 Flow Rate FiO2 08/09/20 16:00 30 08/09/20 16:00 Mechanical Ventilator 08/09/20 16:00 97.2 82 18 152/92 (112) 99 08/09/20 15:40 87 18 30 08/09/20 15:23 90 08/09/20 14:11 100 155/104 08/09/20 12:00 Mechanical Ventilator 08/09/20 12:00 30 08/09/20 11:57 97.7 100 22 155/104 (121) 99 08/09/20 11:30 80 08/09/20 11:05 90 20 30 08/09/20 08:00 96.6 100 21 146/91 (109) 100 08/09/20 08:00 30 08/09/20 08:00 Mechanical Ventilator 08/09/20 07:46 80 08/09/20 07:15 85 19 30 08/09/20 05:46 104 166/104 08/09/20 04:00 93 08/09/20 04:00 Mechanical Ventilator 08/09/20 04:00 30 08/09/20 04:00 98.2 98 20 147/98 (114) 98 08/09/20 02:49 96 17 30 08/09/20 00:00 30 08/09/20 00:00 Mechanical Ventilator 08/09/20 00:00 112 08/09/20 00:00 99.2 116 20 130/87 (101) 98 08/08/20 22:49 129 24 30 08/08/20 20:47 135 122/86 08/08/20 20:00 Mechanical Ventilator 08/08/20 20:00 98.4 116 20 119/92 (101) 98 08/08/20 20:00 30 08/08/20 20:00 119 08/08/20 18:46 115 21 30 I&O Intake and Output 08/08/20 08/09/20 19:00 07:00 Intake Total 570 ml 510 ml Output Total 650 ml 520 ml Balance -80 ml -10 ml Intake Free Water 90 ml 30 ml Tube Feeding 480 ml 480 ml Output Urine Total 450 ml 450 ml Stool Total 200 ml 70 ml Dressing: saturated Cardiovascular: RSR Respiratory: clear, decreased breath sounds Abdomen: soft, non-tender, present bowel sounds Extremities: no tenderness, no cyanosis Laboratory Tests Test 08/09/20 03:24 White Blood Count 19.4 K/UL (4.8-10.8) H Red Blood Count 2.95 M/UL (4.70-6.10) L Hemoglobin 9.3 G/DL (14.2-18.0) L Hematocrit 27.3 % (42.0-52.0) L Mean Corpuscular Volume 92 FL (80-99) Mean Corpuscular Hemoglobin 31.7 PG (27.0-31.0) H Mean Corpuscular Hemoglobin Concent 34.3 G/DL (32.0-36.0) Red Cell Distribution Width 15.9 % (11.6-14.8) H Platelet Count 220 K/UL (150-450) Mean Platelet Volume 7.5 FL (6.5-10.1) Neutrophils (%) (Auto) % (45.0-75.0) Lymphocytes (%) (Auto) % (20.0-45.0) Monocytes (%) (Auto) % (1.0-10.0) Eosinophils (%) (Auto) % (0.0-3.0) Basophils (%) (Auto) % (0.0-2.0) Differential Total Cells Counted 100 Neutrophils % (Manual) 80 % (45-75) H Lymphocytes % (Manual) 7 % (20-45) L Monocytes % (Manual) 4 % (1-10) Eosinophils % (Manual) 2 % (0-3) Basophils % (Manual) 0 % (0-2) Metamyelocytes % 1 % (0-0) H Myelocytes % 3 % (0-0) H Band Neutrophils 3 % (0-8) Platelet Estimate Adequate Platelet Morphology Normal Anisocytosis 1+ Sodium Level 143 MMOL/L (136-145) Potassium Level 3.6 MMOL/L (3.5-5.1) Chloride Level 106 MMOL/L (98-107) Carbon Dioxide Level 26 MMOL/L (21-32) Anion Gap 11 mmol/L (5-15) Blood Urea Nitrogen 77 mg/dL (7-18) H Creatinine 1.5 MG/DL (0.55-1.30) H Estimat Glomerular Filtration Rate 46.8 mL/min (>60) Glucose Level 151 MG/DL (74-106) H Calcium Level 8.8 MG/DL (8.5-10.1) Phosphorus Level 3.1 MG/DL (2.5-4.9) Magnesium Level 2.2 MG/DL (1.8-2.4) Total Bilirubin 0.4 MG/DL (0.2-1.0) Aspartate Amino Transf (AST/SGOT) 96 U/L (15-37) H Alanine Aminotransferase (ALT/SGPT) 199 U/L (12-78) H Alkaline Phosphatase 98 U/L (46-116) Total Protein 6.2 G/DL (6.4-8.2) L Albumin 2.3 G/DL (3.4-5.0) L Globulin 3.9 g/dL Albumin/Globulin Ratio 0.6 (1.0-2.7) L Plan Problems: (1) Respiratory distress (2) Renal failure Assessment & Plan: plan HD line soon temp hd consent from daughter (3) Metabolic acidosis (4) NSTEMI (non-ST elevated myocardial infarction) (5) Sepsis Assessment & Plan: okay for tf iv fluids vent via trach weaning vent g tube okay decubitus eval done and local care provided labs noted acidosis plan HD cont abx as per ID will follow with recs thank you DAILY ESTIMATED NEEDS: Needs based on Critical care, wound, AUNDREA/ 62.7kg 22-28 kcals/kg [id number] total kcals 0.8-1.25 (increase w/ renal fxn improvement) g protein/kg 50-78 g total protein 20-25 mL/kg 0208-0279 total fluid mLs NUTRITION DIAGNOSIS: Swallowing difficulty R/T respiratory failure as evidenced by trach/vent dep, PEG dep. CURRENT TF: NPO ENTERAL NUTRITION RECOMMENDATIONS: Nepro @ 35ml/hr x 24 hrs to provide 840ml, 1512kcal, 68g prot, 611ml free water * As medically appropriate, initiate Nepro, rec goal rate of 35ml/hr x 24 hrs * HOB over 30 degrees/ water flush per MD ADDITIONAL RECOMMENDATIONS: * Per SNF: HT=68" and FF=202bjg -> daily calibrated bedscale wt * Monitor renal fxn and lytes, ability to increase est prot needs * NISS w/ TF -> h/o DM * Probiotics for diarrhea * Wound healing: Add Nephrovite x 1, ZnSO4 220mg QD x 10 days Kenji BID w/ TF Rohit Brand Aug 09, 2020 17:35
--- NOTE | 2020-08-09 18:56 | Infectious Diseases Prog Note ---
Assessment/Plan Assessment/Plan ASSESSMENT AND PLAN: 1. sepsis, fevers and leukocytosis ? aspiration pna/hcap, chest with new infiltrate and worsening leukocytosis - change antibiotics to zosyn and vancomycin - surveillance cultures ordered - d/w Dr. Velazco - monitor labs and chest x-ray 2. Trach, vent. 3. Dysphagia, on G-tube. 4. 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 5. Diabetes. 6. Hypertension. 7. Blood sugar and blood pressure treatment per primary care team. 8. Acute renal failure. 9. Anemia. 10. Respiratory failure. 11. GERD. 12. Vent dependency. 13. No allergies. 14. Social history is negative. 15. Family history noncontributory. 16. MAR was noted. 17. Case was discussed with RN. Subjective Constitutional: Reports: fatigue, other - trach, vent ; Denies: fever HEENT: Reports: congestion Respiratory: Reports: shortness of breath Cardiovascular: Denies: chest pain Gastrointestinal/Abdominal: Reports: diarrhea, other - + rectal tube ; Denies: nausea, vomiting Genitourinary: Reports: other - + mota Neurologic: Reports: other - lethargic, on vent Psychiatric: Reports: other - NA Hematologic: Denies: bleeding Musculoskeletal: Denies: pain Allergies: Coded Allergies: No Known Allergies (Unverified , 08/01/20) Objective Last 24 Hour Vital Signs Date Time Temp Pulse Resp B/P (MAP) Pulse Ox O2 Delivery O2 Flow Rate FiO2 08/09/20 16:00 30 08/09/20 16:00 Mechanical Ventilator 08/09/20 16:00 97.2 82 18 152/92 (112) 99 08/09/20 15:40 87 18 30 08/09/20 15:23 90 08/09/20 14:11 100 155/104 08/09/20 12:00 Mechanical Ventilator 08/09/20 12:00 30 08/09/20 11:57 97.7 100 22 155/104 (121) 99 08/09/20 11:30 80 08/09/20 11:05 90 20 30 08/09/20 08:00 96.6 100 21 146/91 (109) 100 08/09/20 08:00 30 08/09/20 08:00 Mechanical Ventilator 08/09/20 07:46 80 08/09/20 07:15 85 19 30 08/09/20 05:46 104 166/104 08/09/20 04:00 93 08/09/20 04:00 Mechanical Ventilator 08/09/20 04:00 30 08/09/20 04:00 98.2 98 20 147/98 (114) 98 08/09/20 02:49 96 17 30 08/09/20 00:00 30 08/09/20 00:00 Mechanical Ventilator 08/09/20 00:00 112 08/09/20 00:00 99.2 116 20 130/87 (101) 98 08/08/20 22:49 129 24 30 08/08/20 20:47 135 122/86 08/08/20 20:00 Mechanical Ventilator 08/08/20 20:00 98.4 116 20 119/92 (101) 98 08/08/20 20:00 30 08/08/20 20:00 119 Height (Feet): 5 Height (Inches): 7.00 Weight (Pounds): 175 General Appearance: other - on trach and vent HEENT: normocephalic, atraumatic, anicteric, no JVD, status post trach Respiratory/Chest: crackles/rales, rhonchi - bilaterally Cardiovascular: normal rate, regular rhythm, no gallop/murmur Abdomen: normal bowel sounds, soft, non tender, no organomegaly, non distended Genitourinary: other - + mota - urine slt cloudy Extremities: no cyanosis Skin: no rash Neurologic/Psychiatric: suit maker II-XII grossly normal, alert, responsive Lymphatic: no neck adenopathy Musculoskeletal: no effusion Chest x-ray - 08/03/20 - Procedure: XRAY Chest 1v Indication: Shortness of breath Technique: One view of the chest Comparison: 08/01/2020 Findings: Lungs and pleural spaces are clear. Heart size is normal. Tracheostomy again demonstrated. Findings are unchanged Impression: No acute process Chest x-ray - 08/09/20 - Procedure: XRAY Chest 1v Indication: Shortness of breath Technique: One view of the chest Comparison: 08/07/2020 Findings: Jugular temporary dialysis catheter is again demonstrated. There is some hazy very focal infiltrate in the left infrahilar region. The remainder of the lungs and pleural spaces remain clear. Impression: Very focal left infrahilar infiltrate, new since prior study, may indicate early pneumonia Microbiology Date/Time Source Procedure Growth Status 08/02/20 05:00 Rectum VRE Culture - Final NO VANCOMYCIN RESISTANT ENTEROCOCCUS ... Complete 08/02/20 05:00 Stool Clostridium difficile Toxin Assay - Final Complete 08/02/20 05:00 Nasal Nares MRSA Culture - Final NO METHICILLIN RESISTANT STAPH AUREUS... Complete 08/01/20 23:00 Straight Cath Urine Culture - Final NO GROWTH AFTER 48 HOURS Complete 08/01/20 13:10 Blood Blood Culture - Final NO GROWTH AFTER 5 DAYS Complete Laboratory Tests Test 08/09/20 03:24 White Blood Count 19.4 K/UL (4.8-10.8) H Red Blood Count 2.95 M/UL (4.70-6.10) L Hemoglobin 9.3 G/DL (14.2-18.0) L Hematocrit 27.3 % (42.0-52.0) L Mean Corpuscular Volume 92 FL (80-99) Mean Corpuscular Hemoglobin 31.7 PG (27.0-31.0) H Mean Corpuscular Hemoglobin Concent 34.3 G/DL (32.0-36.0) Red Cell Distribution Width 15.9 % (11.6-14.8) H Platelet Count 220 K/UL (150-450) Mean Platelet Volume 7.5 FL (6.5-10.1) Neutrophils (%) (Auto) % (45.0-75.0) Lymphocytes (%) (Auto) % (20.0-45.0) Monocytes (%) (Auto) % (1.0-10.0) Eosinophils (%) (Auto) % (0.0-3.0) Basophils (%) (Auto) % (0.0-2.0) Differential Total Cells Counted 100 Neutrophils % (Manual) 80 % (45-75) H Lymphocytes % (Manual) 7 % (20-45) L Monocytes % (Manual) 4 % (1-10) Eosinophils % (Manual) 2 % (0-3) Basophils % (Manual) 0 % (0-2) Metamyelocytes % 1 % (0-0) H Myelocytes % 3 % (0-0) H Band Neutrophils 3 % (0-8) Platelet Estimate Adequate Platelet Morphology Normal Anisocytosis 1+ Sodium Level 143 MMOL/L (136-145) Potassium Level 3.6 MMOL/L (3.5-5.1) Chloride Level 106 MMOL/L (98-107) Carbon Dioxide Level 26 MMOL/L (21-32) Anion Gap 11 mmol/L (5-15) Blood Urea Nitrogen 77 mg/dL (7-18) H Creatinine 1.5 MG/DL (0.55-1.30) H Estimat Glomerular Filtration Rate 46.8 mL/min (>60) Glucose Level 151 MG/DL (74-106) H Calcium Level 8.8 MG/DL (8.5-10.1) Phosphorus Level 3.1 MG/DL (2.5-4.9) Magnesium Level 2.2 MG/DL (1.8-2.4) Total Bilirubin 0.4 MG/DL (0.2-1.0) Aspartate Amino Transf (AST/SGOT) 96 U/L (15-37) H Alanine Aminotransferase (ALT/SGPT) 199 U/L (12-78) H Alkaline Phosphatase 98 U/L (46-116) Total Protein 6.2 G/DL (6.4-8.2) L Albumin 2.3 G/DL (3.4-5.0) L Globulin 3.9 g/dL Albumin/Globulin Ratio 0.6 (1.0-2.7) L Current Medications Medications (Trade) Dose Ordered Sig/Maegan Route PRN Reason Start Time Stop Time Status Last Admin Dose Admin Acetaminophen (Tylenol) 650 mg Q4H PRN GT For Pain 08/02/20 15:45 09/01/20 15:44 08/03/20 02:13 Acetaminophen (Tylenol) 650 mg Q4H PRN GT Temp >100.5 08/02/20 15:45 09/01/20 15:44 Calcium Acetate (Phoslo) 1,334 mg TIAC GT 08/09/20 16:30 11/03/20 11:29 08/09/20 17:03 Chlorhexidine Gluconate (Deisy-Hex 2%) 1 applic BIOTEC TOPIC 08/02/20 21:00 10/31/20 20:59 08/08/20 20:49 Dextrose 1,000 ml @ 0 mls/hr Q0M IV 08/02/20 09:15 09/01/20 09:14 Heparin Sodium (Porcine) (Heparin 5000 units/ml) 5,000 units EVERY 12 HOURS SUBQ 08/02/20 21:00 09/16/20 20:59 08/09/20 09:24 Lansoprazole (Prevacid) 30 mg DAILY GT 08/10/20 09:00 09/09/20 08:59 Metoclopramide HCl (Reglan) 10 mg Q6H PRN IVP Nausea & Vomiting 08/05/20 14:15 09/04/20 14:14 08/07/20 04:38 Metoprolol Tartrate (Lopressor) 25 mg EVERY 8 HOURS GT 08/09/20 06:00 11/07/20 05:59 08/09/20 14:11 Piperacillin Sod/ Tazobactam Sod 3.375 gm/Sodium Chloride 110 ml @ 27.5 mls/hr EVERY 8 HOURS IVPB 08/09/20 22:00 08/14/20 21:59 Sevelamer Carbonate (Renvela) 800 mg THREE TIMES A DAY GT 08/09/20 18:00 11/02/20 12:59 08/09/20 17:02 Vancomycin HCl 300 ml @ 150 mls/hr ONCE IVPB 08/09/20 20:00 08/09/20 22:00 [facility] DAILY PRN MISC Per rx protocol 08/09/20 18:30 09/08/20 18:29 Calderon Vazquez MD Aug 09, 2020 18:56
[2020-08-09 20:00] VITALS: BP 136/92
[2020-08-09] MEDS ORDERED: Vancomycin 1.5gm/300ml Premix IVPB SCH (20:00)
[2020-08-09] MEDS: Dyna-Hex 2% Top Sol 2oz TOPIC SCH (21:08)
[2020-08-09] MEDS: Piperacillin/Tazobactam 3.375 GM in NS 110 ML IVPB SCH (22:12)
--- NOTE | 2020-08-09 22:12 | Neurology Progress Note ---
Interim History Interim History ROS Limited/Unobtainable: Yes Interim History no new deficits Objective Physical Exam Last Vital Signs Date Time Temp Pulse Resp B/P (MAP) Pulse Ox O2 Delivery O2 Flow Rate FiO2 08/09/20 21:09 110 136/92 08/09/20 20:00 30 08/09/20 20:00 98.4 20 99 08/09/20 16:00 Mechanical Ventilator Laboratory Tests Test 08/09/20 03:24 White Blood Count 19.4 K/UL (4.8-10.8) H Red Blood Count 2.95 M/UL (4.70-6.10) L Hemoglobin 9.3 G/DL (14.2-18.0) L Hematocrit 27.3 % (42.0-52.0) L Mean Corpuscular Volume 92 FL (80-99) Mean Corpuscular Hemoglobin 31.7 PG (27.0-31.0) H Mean Corpuscular Hemoglobin Concent 34.3 G/DL (32.0-36.0) Red Cell Distribution Width 15.9 % (11.6-14.8) H Platelet Count 220 K/UL (150-450) Mean Platelet Volume 7.5 FL (6.5-10.1) Neutrophils (%) (Auto) % (45.0-75.0) Lymphocytes (%) (Auto) % (20.0-45.0) Monocytes (%) (Auto) % (1.0-10.0) Eosinophils (%) (Auto) % (0.0-3.0) Basophils (%) (Auto) % (0.0-2.0) Differential Total Cells Counted 100 Neutrophils % (Manual) 80 % (45-75) H Lymphocytes % (Manual) 7 % (20-45) L Monocytes % (Manual) 4 % (1-10) Eosinophils % (Manual) 2 % (0-3) Basophils % (Manual) 0 % (0-2) Metamyelocytes % 1 % (0-0) H Myelocytes % 3 % (0-0) H Band Neutrophils 3 % (0-8) Platelet Estimate Adequate Platelet Morphology Normal Anisocytosis 1+ Sodium Level 143 MMOL/L (136-145) Potassium Level 3.6 MMOL/L (3.5-5.1) Chloride Level 106 MMOL/L (98-107) Carbon Dioxide Level 26 MMOL/L (21-32) Anion Gap 11 mmol/L (5-15) Blood Urea Nitrogen 77 mg/dL (7-18) H Creatinine 1.5 MG/DL (0.55-1.30) H Estimat Glomerular Filtration Rate 46.8 mL/min (>60) Glucose Level 151 MG/DL (74-106) H Calcium Level 8.8 MG/DL (8.5-10.1) Phosphorus Level 3.1 MG/DL (2.5-4.9) Magnesium Level 2.2 MG/DL (1.8-2.4) Total Bilirubin 0.4 MG/DL (0.2-1.0) Aspartate Amino Transf (AST/SGOT) 96 U/L (15-37) H Alanine Aminotransferase (ALT/SGPT) 199 U/L (12-78) H Alkaline Phosphatase 98 U/L (46-116) Total Protein 6.2 G/DL (6.4-8.2) L Albumin 2.3 G/DL (3.4-5.0) L Globulin 3.9 g/dL Albumin/Globulin Ratio 0.6 (1.0-2.7) L Neurologic Exam Objective trach tachy grimaces to pain lethargic Impression/Recommendations Problems: (1) Respiratory distress (2) Renal failure (3) Metabolic acidosis (4) NSTEMI (non-ST elevated myocardial infarction) (5) Sepsis Diagnostic Impression Encephalopathy, likely metabolic sepsis hx of left thalamic hemorrhage likely from htn icu level map > 65 monitor mental status cont atb fu cultures ok for heparin SC given ich is chronic Pedro Hale MD Aug 09, 2020 22:12
[2020-08-09 23:59] LABS: APPEARANCE,URINE CLOUDY; BILIRUBIN, URINE NEGATIVE (NEGATIVE); GLUCOSE, URINE (UA) NEGATIVE (NEGATIVE); KETONES,URINE NEGATIVE (NEGATIVE); LEUKOCYTE ESTERASE ,URINE 1+ (NEGATIVE); NITRITE,URINE NEGATIVE (NEGATIVE); PH,URINE 5 (4.5-8.0); PROTEIN,URINE 3+ (NEGATIVE); UROBILINOGEN,URINE NORMAL MG/DL (0.0-1.0)
[2020-08-10 00:11] LABS: COLOR,URINE YELLOW
[2020-08-10 00:43] VITALS: BP 126/79
[2020-08-10 04:00] VITALS: BP 155/95
[2020-08-10 05:16] LABS: HEMATOCRIT 27.6 % (42.0-52.0); HEMOGLOBIN 8.9 G/DL (14.2-18.0); MEAN CORPUSCULAR VOLUME 96 FL (80-99); PLATELET COUNT 248 K/UL (150-450); RED BLOOD COUNT 2.86 M/UL (4.70-6.10); RED CELL DISTRIBUTION WIDTH 14.9 % (11.6-14.8); WHITE BLOOD COUNT 21.7 K/UL (4.8-10.8)
[2020-08-10 05:24] LABS: ALBUMIN 2.2 G/DL (3.4-5.0); ALBUMIN/GLOBULIN RATIO 0.5 (1.0-2.7); BILIRUBIN,TOTAL 0.5 MG/DL (0.2-1.0); CREATININE 1.4 MG/DL (0.55-1.30); POTASSIUM 3.2 MMOL/L (3.5-5.1)
[2020-08-10] MEDS: Piperacillin/Tazobactam 3.375 GM in NS 110 ML IVPB SCH ×3 (05:57→21:43)
--- NOTE | 2020-08-10 06:25 | Hematology/Onc Progress Note ---
Assessment/Plan Assessment/Plan ASSESSMENT AND PLAN: # Leukocytosis is due to sepsis, fevers, leukocytosis. Avoid nephrotoxic drugs. --> ABX Continue Zyvox, cefepime, and Flagyl --> iamging has been reviewed --> as per pulm and id recs --> wbc 22-->18-->12->11->16-->22 # Anemia due to hemodilution --> if lower than 10, get workup --> transfuse prn --> hgb 11-->10-->7.4-->9->8.8-->8.9 # Thrombocytopenia due to underlying infection --> medications have been reviewed --> 186-->127-->105->160 --> is on hep, monitor --> smear has been reviewed --> hep and hiv neg # Trach, vent. # Dysphagia, on G-tube. 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 # Diabetes. # Hypertension. # Acute renal failure. # GERD. # Dvt ppx heparin sq Appreciate consultation and anil JOYA Subjective Gastrointestinal/Abdominal: Denies: no symptoms, abdomen distended, abdominal pain, black stools, tarry stools, blood in stool, constipated, diarrhea, difficulty swallowing, nausea, poor appetite, poor fluid intake, rectal bleeding, vomiting, other Genitourinary: Denies: no symptoms, burning, discharge, frequency, flank pain, hematuria, incontinence, pain, urgency, other Neurologic/Psychiatric: Denies: no symptoms, anxiety, depressed, emotional problems, headache, numbness, paresthesia, pre-existing deficit, seizure, tingling, tremors, weakness, other Endocrine: Denies: no symptoms, excessive sweating, flushing, intolerance to cold, intolerance to heat, increased hunger, increased thirst, increased urine, unexplained weight gain, unexplained weight loss, other Allergies: Coded Allergies: No Known Allergies (Unverified , 08/01/20) Subjective 08/04 remains on vent, abx, labs reviewed, meds noted 08/06 hd prn, no bleeding,with mota and rectal tube, labs noted 08/07 tolerating gt feeds, no new events overnight, anil joya 08/08 nv, vent, tolerating tube feeds, labs noted 08/09 nv, vent, tolerating tube feeds, labs pending 08/10 nv, trach/vent, no new events, labs are noted, comfortable Objective Objective Current Medications Medications (Trade) Dose Ordered Sig/Maegan Route PRN Reason Start Time Stop Time Status Last Admin Dose Admin Acetaminophen (Tylenol) 650 mg Q4H PRN GT For Pain 08/02/20 15:45 09/01/20 15:44 08/03/20 02:13 Acetaminophen (Tylenol) 650 mg Q4H PRN GT Temp >100.5 08/02/20 15:45 09/01/20 15:44 Calcium Acetate (Phoslo) 1,334 mg TIAC GT 08/09/20 16:30 11/03/20 11:29 08/10/20 05:58 Chlorhexidine Gluconate (Deisy-Hex 2%) 1 applic BIOTEC TOPIC 08/02/20 21:00 10/31/20 20:59 08/09/20 21:08 Dextrose 1,000 ml @ 0 mls/hr Q0M IV 08/02/20 09:15 09/01/20 09:14 Heparin Sodium (Porcine) (Heparin 5000 units/ml) 5,000 units EVERY 12 HOURS SUBQ 08/02/20 21:00 09/16/20 20:59 08/09/20 21:10 Lansoprazole (Prevacid) 30 mg DAILY GT 08/10/20 09:00 09/09/20 08:59 Metoclopramide HCl (Reglan) 10 mg Q6H PRN IVP Nausea & Vomiting 08/05/20 14:15 09/04/20 14:14 08/07/20 04:38 Metoprolol Tartrate (Lopressor) 25 mg EVERY 8 HOURS GT 08/09/20 06:00 11/07/20 05:59 08/10/20 05:58 Piperacillin Sod/ Tazobactam Sod 3.375 gm/Sodium Chloride 110 ml @ 27.5 mls/hr EVERY 8 HOURS IVPB 08/09/20 22:00 08/14/20 21:59 08/10/20 05:57 Sevelamer Carbonate (Renvela) 800 mg THREE TIMES A DAY GT 08/09/20 18:00 11/02/20 12:59 08/09/20 17:02 Vancomycin HCl ([facility] pharmacy to dose) 1 ea DAILY PRN MISC Per rx protocol 08/09/20 18:30 09/08/20 18:29 Last 24 Hour Vital Signs Date Time Temp Pulse Resp B/P (MAP) Pulse Ox O2 Delivery O2 Flow Rate FiO2 08/10/20 05:58 89 155/95 08/10/20 04:02 Mechanical Ventilator 08/10/20 04:01 30 08/10/20 04:00 89 08/10/20 04:00 97.7 95 18 155/95 (115) 100 08/10/20 01:07 95 18 30 08/10/20 00:43 98.2 87 20 126/79 (95) 99 08/10/20 00:42 30 08/10/20 00:34 Mechanical Ventilator 08/10/20 00:00 89 08/09/20 21:09 110 136/92 08/09/20 20:00 30 08/09/20 20:00 112 08/09/20 20:00 98.4 110 20 136/92 (107) 99 08/09/20 20:00 Mechanical Ventilator 08/09/20 19:36 98 16 30 08/09/20 16:00 30 08/09/20 16:00 Mechanical Ventilator 08/09/20 16:00 97.2 82 18 152/92 (112) 99 08/09/20 15:40 87 18 30 08/09/20 15:23 90 08/09/20 14:11 100 155/104 08/09/20 12:00 Mechanical Ventilator 08/09/20 12:00 30 08/09/20 11:57 97.7 100 22 155/104 (121) 99 08/09/20 11:30 80 08/09/20 11:05 90 20 30 08/09/20 08:00 96.6 100 21 146/91 (109) 100 08/09/20 08:00 30 08/09/20 08:00 Mechanical Ventilator 08/09/20 07:46 80 08/09/20 07:15 85 19 30 08/09/20 05:46 104 166/104 08/09/20 04:00 93 08/09/20 04:00 Mechanical Ventilator 08/09/20 04:00 30 08/09/20 04:00 98.2 98 20 147/98 (114) 98 08/09/20 02:49 96 17 30 08/09/20 00:00 30 08/09/20 00:00 Mechanical Ventilator 08/09/20 00:00 112 08/09/20 00:00 99.2 116 20 130/87 (101) 98 08/08/20 22:49 129 24 30 08/08/20 20:47 135 122/86 08/08/20 20:00 Mechanical Ventilator 08/08/20 20:00 98.4 116 20 119/92 (101) 98 08/08/20 20:00 30 08/08/20 20:00 119 08/08/20 18:46 115 21 30 08/08/20 16:00 30 08/08/20 16:00 97.9 101 23 133/87 (102) 99 08/08/20 16:00 91 08/08/20 16:00 Mechanical Ventilator 08/08/20 15:12 98 16 30 08/08/20 12:00 98.0 85 18 133/95 (108) 100 08/08/20 12:00 Mechanical Ventilator 08/08/20 12:00 30 08/08/20 11:29 91 08/08/20 10:40 76 16 30 08/08/20 08:22 83 158/96 08/08/20 08:00 30 08/08/20 08:00 92 08/08/20 08:00 97.7 96 16 158/96 (116) 100 08/08/20 08:00 Mechanical Ventilator 08/08/20 06:41 77 16 30 Intake and Output 08/09/20 08/10/20 19:00 07:00 Intake Total 625 ml 480 ml Output Total 500 ml 350 ml Balance 125 ml 130 ml Intake Free Water 90 ml 120 ml IV Total 55 ml Tube Feeding 480 ml 360 ml Output Urine Total 400 ml 350 ml Stool Total 100 ml # Bowel Movements 50 Labs Test 08/07/20 08:27 08/08/20 04:25 08/09/20 03:24 08/09/20 23:00 Sodium Level 143 MMOL/L (136-145) 141 MMOL/L (136-145) 143 MMOL/L (136-145) Potassium Level 3.3 MMOL/L (3.5-5.1) 3.6 MMOL/L (3.5-5.1) 3.6 MMOL/L (3.5-5.1) Chloride Level 106 MMOL/L (98-107) 106 MMOL/L (98-107) 106 MMOL/L (98-107) Carbon Dioxide Level 28 MMOL/L (21-32) 27 MMOL/L (21-32) 26 MMOL/L (21-32) Anion Gap 9 mmol/L (5-15) 8 mmol/L (5-15) 11 mmol/L (5-15) Blood Urea Nitrogen 84 mg/dL (7-18) 82 mg/dL (7-18) 77 mg/dL (7-18) Creatinine 1.7 MG/DL (0.55-1.30) 1.6 MG/DL (0.55-1.30) 1.5 MG/DL (0.55-1.30) Estimat Glomerular Filtration Rate 40.5 mL/min (>60) 43.5 mL/min (>60) 46.8 mL/min (>60) Glucose Level 170 MG/DL (74-106) 160 MG/DL (74-106) 151 MG/DL (74-106) Calcium Level 8.3 MG/DL (8.5-10.1) 8.3 MG/DL (8.5-10.1) 8.8 MG/DL (8.5-10.1) White Blood Count 15.9 K/UL (4.8-10.8) 19.4 K/UL (4.8-10.8) Red Blood Count 2.88 M/UL (4.70-6.10) 2.95 M/UL (4.70-6.10) Hemoglobin 8.8 G/DL (14.2-18.0) 9.3 G/DL (14.2-18.0) Hematocrit 26.3 % (42.0-52.0) 27.3 % (42.0-52.0) Mean Corpuscular Volume 91 FL (80-99) 92 FL (80-99) Mean Corpuscular Hemoglobin 30.7 PG (27.0-31.0) 31.7 PG (27.0-31.0) Mean Corpuscular Hemoglobin Concent 33.6 G/DL (32.0-36.0) 34.3 G/DL (32.0-36.0) Red Cell Distribution Width 15.1 % (11.6-14.8) 15.9 % (11.6-14.8) Platelet Count 160 K/UL (150-450) 220 K/UL (150-450) Mean Platelet Volume 8.6 FL (6.5-10.1) 7.5 FL (6.5-10.1) Neutrophils (%) (Auto) % (45.0-75.0) % (45.0-75.0) Lymphocytes (%) (Auto) % (20.0-45.0) % (20.0-45.0) Monocytes (%) (Auto) % (1.0-10.0) % (1.0-10.0) Eosinophils (%) (Auto) % (0.0-3.0) % (0.0-3.0) Basophils (%) (Auto) % (0.0-2.0) % (0.0-2.0) Differential Total Cells Counted 100 100 Neutrophils % (Manual) 75 % (45-75) 80 % (45-75) Lymphocytes % (Manual) 14 % (20-45) 7 % (20-45) Monocytes % (Manual) 6 % (1-10) 4 % (1-10) Eosinophils % (Manual) 2 % (0-3) 2 % (0-3) Basophils % (Manual) 0 % (0-2) 0 % (0-2) Myelocytes % 2 % (0-0) 3 % (0-0) Band Neutrophils 1 % (0-8) 3 % (0-8) Platelet Estimate Adequate Adequate Platelet Morphology Normal Normal Anisocytosis 1+ 1+ Phosphorus Level 4.2 MG/DL (2.5-4.9) 3.1 MG/DL (2.5-4.9) Magnesium Level 1.8 MG/DL (1.8-2.4) 2.2 MG/DL (1.8-2.4) Total Bilirubin 0.5 MG/DL (0.2-1.0) 0.4 MG/DL (0.2-1.0) Aspartate Amino Transf (AST/SGOT) 128 U/L (15-37) 96 U/L (15-37) Alanine Aminotransferase (ALT/SGPT) 197 U/L (12-78) 199 U/L (12-78) Alkaline Phosphatase 88 U/L (46-116) 98 U/L (46-116) Total Protein 6.1 G/DL (6.4-8.2) 6.2 G/DL (6.4-8.2) Albumin 2.1 G/DL (3.4-5.0) 2.3 G/DL (3.4-5.0) Globulin 4.0 g/dL 3.9 g/dL Albumin/Globulin Ratio 0.5 (1.0-2.7) 0.6 (1.0-2.7) Metamyelocytes % 1 % (0-0) Urine Color Yellow Urine Appearance Cloudy Urine pH 5 (4.5-8.0) Urine Specific [place] 1.020 (1.005-1.035) Urine Protein 3+ (NEGATIVE) Urine Glucose (UA) Negative (NEGATIVE) Urine Ketones Negative (NEGATIVE) Urine Blood 1+ (NEGATIVE) Urine Nitrite Negative (NEGATIVE) Urine Bilirubin Negative (NEGATIVE) Urine Urobilinogen Normal MG/DL (0.0-1.0) Urine Leukocyte Esterase 1+ (NEGATIVE) Urine RBC 2-4 /HPF (0 - 0) Urine WBC 2-4 /HPF (0 - 0) Urine Squamous Epithelial Cells Few /LPF (NONE/OCC) Urine Bacteria Moderate /HPF (NONE) Urine Yeast Many /HPF (NONE) Test 08/10/20 03:20 White Blood Count 21.7 K/UL (4.8-10.8) Red Blood Count 2.86 M/UL (4.70-6.10) Hemoglobin 8.9 G/DL (14.2-18.0) Hematocrit 27.6 % (42.0-52.0) Mean Corpuscular Volume 96 FL (80-99) Mean Corpuscular Hemoglobin 31.1 PG (27.0-31.0) Mean Corpuscular Hemoglobin Concent 32.2 G/DL (32.0-36.0) Red Cell Distribution Width 14.9 % (11.6-14.8) Platelet Count 248 K/UL (150-450) Mean Platelet Volume 6.8 FL (6.5-10.1) Neutrophils (%) (Auto) % (45.0-75.0) Lymphocytes (%) (Auto) % (20.0-45.0) Monocytes (%) (Auto) % (1.0-10.0) Eosinophils (%) (Auto) % (0.0-3.0) Basophils (%) (Auto) % (0.0-2.0) Sodium Level 142 MMOL/L (136-145) Potassium Level 3.2 MMOL/L (3.5-5.1) Chloride Level 106 MMOL/L (98-107) Carbon Dioxide Level 28 MMOL/L (21-32) Anion Gap 8 mmol/L (5-15) Blood Urea Nitrogen 76 mg/dL (7-18) Creatinine 1.4 MG/DL (0.55-1.30) Estimat Glomerular Filtration Rate 50.7 mL/min (>60) Glucose Level 120 MG/DL (74-106) Calcium Level 9.0 MG/DL (8.5-10.1) Phosphorus Level 3.0 MG/DL (2.5-4.9) Magnesium Level 2.2 MG/DL (1.8-2.4) Total Bilirubin 0.5 MG/DL (0.2-1.0) Aspartate Amino Transf (AST/SGOT) 71 U/L (15-37) Alanine Aminotransferase (ALT/SGPT) 152 U/L (12-78) Alkaline Phosphatase 89 U/L (46-116) Total Protein 6.3 G/DL (6.4-8.2) Albumin 2.2 G/DL (3.4-5.0) Globulin 4.1 g/dL Albumin/Globulin Ratio 0.5 (1.0-2.7) Height (Feet): 5 Height (Inches): 7.00 Weight (Pounds): 175 Objective Physical Exam General Appearance: lethargic Lines, tubes and drains: trach+++ vent++++ HEENT: normocephalic, atraumatic, mucous membranes moist Neck: normal alignment Respiratory/Chest: rhonchi - bilaterally Cardiovascular/Chest: normal peripheral pulses, regular rhythm Abdomen: soft, no mass, ++ feeding tube Extremities: no edema, no cyanosis Skin Exam: normal pigmentation, warm/dry Neurologic: unresponsiveness Karthik Mercedes MD Aug 10, 2020 06:25
[2020-08-10 08:00] VITALS: BP 158/96
[2020-08-10] MEDS: Renvela 800mg Pkt GT SCH ×3 (08:55→17:02)
[2020-08-10] MEDS: Heparin 5000 units/ml inj SUBQ SCH ×2 (08:57→20:31)
--- NOTE | 2020-08-10 09:14 | Nephrology Progress Note ---
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 per daughter #Uremia #Anemia #Pneumonia #sepsis - per discussion with daughter - HD is in line with goals of care - for now hold off HD- Cr seems to be stabilizing - will remove maharkur pending revolution of renal function - monitor labs - DC bicarb drip - add sevelamer - monitor ABG - antibiotics per ID - avoid nephrotoxins - monitor UOP - monitor electrolytes time spent 65 min Subjective ROS Limited/Unobtainable: Yes Subjective Cr stable Defer HD k low repleted Objective Objective Last 24 Hour Vital Signs Date Time Temp Pulse Resp B/P (MAP) Pulse Ox O2 Delivery O2 Flow Rate FiO2 08/10/20 08:00 30 08/10/20 08:00 97.5 87 20 158/96 (116) 100 08/10/20 08:00 Mechanical Ventilator 08/10/20 06:45 75 16 30 08/10/20 05:58 89 155/95 08/10/20 04:02 Mechanical Ventilator 08/10/20 04:01 30 08/10/20 04:00 89 08/10/20 04:00 97.7 95 18 155/95 (115) 100 08/10/20 01:07 95 18 30 08/10/20 00:43 98.2 87 20 126/79 (95) 99 08/10/20 00:42 30 08/10/20 00:34 Mechanical Ventilator 08/10/20 00:00 89 08/09/20 21:09 110 136/92 08/09/20 20:00 30 08/09/20 20:00 112 08/09/20 20:00 98.4 110 20 136/92 (107) 99 08/09/20 20:00 Mechanical Ventilator 08/09/20 19:36 98 16 30 08/09/20 16:00 30 08/09/20 16:00 Mechanical Ventilator 08/09/20 16:00 97.2 82 18 152/92 (112) 99 08/09/20 15:40 87 18 30 08/09/20 15:23 90 08/09/20 14:11 100 155/104 08/09/20 12:00 Mechanical Ventilator 08/09/20 12:00 30 08/09/20 11:57 97.7 100 22 155/104 (121) 99 08/09/20 11:30 80 08/09/20 11:05 90 20 30 Intake and Output 08/09/20 08/10/20 19:00 07:00 Intake Total 625 ml 520 ml Output Total 500 ml 350 ml Balance 125 ml 170 ml Intake Free Water 90 ml 120 ml IV Total 55 ml Tube Feeding 480 ml 400 ml Output Urine Total 400 ml 350 ml Stool Total 100 ml # Bowel Movements 50 Laboratory Tests 08/09/20 23:00: Urine Color Yellow, Urine Appearance Cloudy, Urine pH 5, Urine Specific [place] 1.020, Urine Protein 3+H, Urine Glucose (UA) Negative, Urine Ketones Negative, Urine Blood 1+H, Urine Nitrite Negative, Urine Bilirubin Negative, Urine Urobilinogen Normal, Urine Leukocyte Esterase 1+H, Urine RBC 2-4H, Urine WBC 2- 4, Urine Squamous Epithelial Cells Few, Urine Bacteria ModerateH, Urine Yeast ManyH 08/10/20 03:20: White Blood Count 21.7H, Red Blood Count 2.86L, Hemoglobin 8.9L, Hematocrit 27.6L, Mean Corpuscular Volume 96, Mean Corpuscular Hemoglobin 31.1H, Mean Corpuscular Hemoglobin Concent 32.2, Red Cell Distribution Width 14.9H, Platelet Count 248, Mean Platelet Volume 6.8, Neutrophils (%) (Auto) , Lymphocytes (%) (Auto) , Monocytes (%) (Auto) , Eosinophils (%) (Auto) , Basophils (%) (Auto) , Neutrophils % (Manual) [Pending], Lymphocytes % (Manual) [Pending], Platelet Estimate [Pending], Platelet Morphology [Pending], Sodium Level 142, Potassium Level 3.2L, Chloride Level 106, Carbon Dioxide Level 28, Anion Gap 8, Blood Urea Nitrogen 76H, Creatinine 1.4H, Estimat Glomerular Filtration Rate 50.7, Glucose Level 120H, Calcium Level 9.0, Phosphorus Level 3.0, Magnesium Level 2.2, Total Bilirubin 0.5, Aspartate Amino Transf (AST/SGOT) 71H, Alanine Aminotransferase (ALT/SGPT) 152H, Alkaline Phosphatase 89, Total Protein 6.3L, Albumin 2.2L, Globulin 4.1, Albumin/Globulin Ratio 0.5L Height (Feet): 5 Height (Inches): 7.00 Weight (Pounds): 175 Objective General Appearance: other - non interactive Cardiovascular: normal rate, regular rhythm Respiratory/Chest: no respiratory distress, other - Trach on Vent Abdomen: soft, other - Rectal tube in place Extremities: other - bedbound Neurologic: other - non interactive at baseline Skin: warm/dry Gladys Sherman M.D. Aug 10, 2020 09:14
[2020-08-10 11:53] VITALS: BP 129/80
--- NOTE | 2020-08-10 13:41 | Pulmonology Progress Note ---
Subjective ROS Limited/Unobtainable: Yes Interval Events: No new events Constitutional: Reports: fatigue, other - trach, vent ; Denies: fever HEENT: Repors: no symptoms Respiratory: Reports: no symptoms Cardiovascular: Reports: no symptoms Gastrointestinal/Abdominal: Reports: diarrhea, other - + rectal tube ; Denies: nausea, vomiting Psychiatric: Reports: other - NA Skin: Denies: rash Musculoskeletal: Denies: pain Allergies: Coded Allergies: No Known Allergies (Unverified , 08/01/20) All Systems: reviewed and negative except above Objective Last 24 Hour Vital Signs Date Time Temp Pulse Resp B/P (MAP) Pulse Ox O2 Delivery O2 Flow Rate FiO2 08/10/20 13:08 98 129/80 08/10/20 12:00 82 08/10/20 11:54 30 08/10/20 11:53 97.7 98 20 129/80 (96) 100 08/10/20 11:53 Mechanical Ventilator 08/10/20 08:00 30 08/10/20 08:00 72 08/10/20 08:00 97.5 87 20 158/96 (116) 100 08/10/20 08:00 Mechanical Ventilator 08/10/20 06:45 75 16 30 08/10/20 05:58 89 155/95 08/10/20 04:02 Mechanical Ventilator 08/10/20 04:01 30 08/10/20 04:00 89 08/10/20 04:00 97.7 95 18 155/95 (115) 100 08/10/20 01:07 95 18 30 08/10/20 00:43 98.2 87 20 126/79 (95) 99 08/10/20 00:42 30 08/10/20 00:34 Mechanical Ventilator 08/10/20 00:00 89 08/09/20 21:09 110 136/92 08/09/20 20:00 30 08/09/20 20:00 112 08/09/20 20:00 98.4 110 20 136/92 (107) 99 08/09/20 20:00 Mechanical Ventilator 08/09/20 19:36 98 16 30 08/09/20 16:00 30 08/09/20 16:00 Mechanical Ventilator 08/09/20 16:00 97.2 82 18 152/92 (112) 99 08/09/20 15:40 87 18 30 08/09/20 15:23 90 08/09/20 14:11 100 155/104 Intake and Output 08/09/20 08/10/20 19:00 07:00 Intake Total 625 ml 520 ml Output Total 500 ml 350 ml Balance 125 ml 170 ml Intake Free Water 90 ml 120 ml IV Total 55 ml Tube Feeding 480 ml 400 ml Output Urine Total 400 ml 350 ml Stool Total 100 ml # Bowel Movements 50 General Appearance: WD/WN HEENT: normocephalic, status post trach Respiratory: chest wall non-tender Cardiovascular: normal peripheral pulses, normal rate Abdomen: normal bowel sounds Laboratory Tests 08/09/20 23:00: Urine Color Yellow, Urine Appearance Cloudy, Urine pH 5, Urine Specific [place] 1.020, Urine Protein 3+H, Urine Glucose (UA) Negative, Urine Ketones Negative, Urine Blood 1+H, Urine Nitrite Negative, Urine Bilirubin Negative, Urine Urobilinogen Normal, Urine Leukocyte Esterase 1+H, Urine RBC 2-4H, Urine WBC 2- 4, Urine Squamous Epithelial Cells Few, Urine Bacteria ModerateH, Urine Yeast ManyH 08/10/20 03:20: White Blood Count 21.7H, Red Blood Count 2.86L, Hemoglobin 8.9L, Hematocrit 2 7.6L, Mean Corpuscular Volume 96, Mean Corpuscular Hemoglobin 31.1H, Mean Corpuscular Hemoglobin Concent 32.2, Red Cell Distribution Width 14.9H, Platelet Count 248, Mean Platelet Volume 6.8, Neutrophils (%) (Auto) , Lymphocytes (%) (Auto) , Monocytes (%) (Auto) , Eosinophils (%) (Auto) , Basophils (%) (Auto) , Differential Total Cells Counted 100, Neutrophils % (Manual) 63, Lymphocytes % (Manual) 17L, Monocytes % (Manual) 6, Eosinophils % (Manual) 7H, Basophils % (Manual) 0, Metamyelocytes % 1H, Myelocytes % 5H, Band Neutrophils 1, Platelet Estimate Adequate, Platelet Morphology Normal, Anisocytosis 1+, Sodium Level 142, Potassium Level 3.2L, Chloride Level 106, Carbon Dioxide Level 28, Anion Gap 8, Blood Urea Nitrogen 76H, Creatinine 1.4H, Estimat Glomerular Filtration Rate 50.7, Glucose Level 120H, Calcium Level 9.0, Phosphorus Level 3.0, Magnesium Level 2.2, Total Bilirubin 0.5, Aspartate Amino Transf (AST/SGOT) 71H, Alanine Aminotransferase (ALT/SGPT) 152H, Alkaline Phosphatase 89, Total Protein 6.3L, Albumin 2.2L, Globulin 4.1, Albumin/Globulin Ratio 0.5L 08/10/20 12:20: Random Vancomycin Level 21.3 Current Medications Medications (Trade) Dose Ordered Sig/Maegan Route PRN Reason Start Time Stop Time Status Last Admin Dose Admin Acetaminophen (Tylenol) 650 mg Q4H PRN GT For Pain 08/02/20 15:45 09/01/20 15:44 08/03/20 02:13 Acetaminophen (Tylenol) 650 mg Q4H PRN GT Temp >100.5 08/02/20 15:45 09/01/20 15:44 Barium Sulfate (Readi-Cat 2) 450 ml NOW PRN ORAL Radiology Procedure 08/10/20 12:45 08/12/20 12:44 Calcium Acetate (Phoslo) 1,334 mg TIAC GT 08/09/20 16:30 11/03/20 11:29 08/10/20 11:06 Chlorhexidine Gluconate (Deisy-Hex 2%) 1 applic BIOTEC TOPIC 08/02/20 21:00 10/31/20 20:59 08/09/20 21:08 Dextrose 1,000 ml @ 0 mls/hr Q0M IV 08/02/20 09:15 09/01/20 09:14 Heparin Sodium (Porcine) (Heparin 5000 units/ml) 5,000 units EVERY 12 HOURS SUBQ 08/02/20 21:00 09/16/20 20:59 08/10/20 08:57 Lansoprazole (Prevacid) 30 mg DAILY GT 08/10/20 09:00 09/09/20 08:59 08/10/20 08:55 Metoclopramide HCl (Reglan) 10 mg Q6H PRN IVP Nausea & Vomiting 08/05/20 14:15 09/04/20 14:14 08/07/20 04:38 Metoprolol Tartrate (Lopressor) 25 mg EVERY 8 HOURS GT 08/09/20 06:00 11/07/20 05:59 08/10/20 13:08 Piperacillin Sod/ Tazobactam Sod 3.375 gm/Sodium Chloride 110 ml @ 27.5 mls/hr EVERY 8 HOURS IVPB 08/09/20 22:00 08/14/20 21:59 08/10/20 13:08 Sevelamer Carbonate (Renvela) 800 mg THREE TIMES A DAY GT 08/09/20 18:00 11/02/20 12:59 08/10/20 13:08 Vancomycin HCl ([facility] pharmacy to dose) 1 ea DAILY PRN MISC Per rx protocol 08/09/20 18:30 09/08/20 18:29 Assessment/Plan Assessment/Plan IMPRESSION: 1. Chronic respiratory failure. Chronic tracheostomy 2. Metabolic acidosis. On hemodialysis 3. Renal failure. HD per renal 4. Leukocytosis. 5. Sepsis. Source unclear; C dif negative; CXR clear DISCUSSION: Agree with broad spectrum antibiotics. I will continue AC mode. Currently FiO2 30%; PEEP 5 Discontinued bicarbonate supplementation. Noted plans for HD Potassium supplementation per nephrology Hemodynamically stable I will follow carefully. Jack Nunez M.D. Jack Nunez MD Aug 10, 2020 13:41
--- NOTE | 2020-08-10 14:04 | Surgery Progress Note ---
Surgery Progress Note Subjective Procedure Performed right femoral temporary hemodialysis catheter insertion Additional Comments right fem temp hd cath removed new line noted no n/v hemostatis noted dressings applied Objective Last 24 Hour Vital Signs Date Time Temp Pulse Resp B/P (MAP) Pulse Ox O2 Delivery O2 Flow Rate FiO2 08/10/20 13:08 98 129/80 08/10/20 12:00 82 08/10/20 11:54 30 08/10/20 11:53 97.7 98 20 129/80 (96) 100 08/10/20 11:53 Mechanical Ventilator 08/10/20 08:00 30 08/10/20 08:00 72 08/10/20 08:00 97.5 87 20 158/96 (116) 100 08/10/20 08:00 Mechanical Ventilator 08/10/20 06:45 75 16 30 08/10/20 05:58 89 155/95 08/10/20 04:02 Mechanical Ventilator 08/10/20 04:01 30 08/10/20 04:00 89 08/10/20 04:00 97.7 95 18 155/95 (115) 100 08/10/20 01:07 95 18 30 08/10/20 00:43 98.2 87 20 126/79 (95) 99 08/10/20 00:42 30 08/10/20 00:34 Mechanical Ventilator 08/10/20 00:00 89 08/09/20 21:09 110 136/92 08/09/20 20:00 30 08/09/20 20:00 112 08/09/20 20:00 98.4 110 20 136/92 (107) 99 08/09/20 20:00 Mechanical Ventilator 08/09/20 19:36 98 16 30 08/09/20 16:00 30 08/09/20 16:00 Mechanical Ventilator 08/09/20 16:00 97.2 82 18 152/92 (112) 99 08/09/20 15:40 87 18 30 08/09/20 15:23 90 08/09/20 14:11 100 155/104 I&O Intake and Output 08/09/20 08/10/20 19:00 07:00 Intake Total 625 ml 520 ml Output Total 500 ml 350 ml Balance 125 ml 170 ml Intake Free Water 90 ml 120 ml IV Total 55 ml Tube Feeding 480 ml 400 ml Output Urine Total 400 ml 350 ml Stool Total 100 ml # Bowel Movements 50 Dressing: saturated Cardiovascular: RSR Respiratory: decreased breath sounds Abdomen: soft, non-tender, present bowel sounds Extremities: no edema, no tenderness, no cyanosis Laboratory Tests Test 08/09/20 23:00 08/10/20 03:20 08/10/20 12:20 Urine Color Yellow Urine Appearance Cloudy Urine pH 5 (4.5-8.0) Urine Specific [place] 1.020 (1.005-1.035) Urine Protein 3+ (NEGATIVE) H Urine Glucose (UA) Negative (NEGATIVE) Urine Ketones Negative (NEGATIVE) Urine Blood 1+ (NEGATIVE) H Urine Nitrite Negative (NEGATIVE) Urine Bilirubin Negative (NEGATIVE) Urine Urobilinogen Normal MG/DL (0.0-1.0) Urine Leukocyte Esterase 1+ (NEGATIVE) H Urine RBC 2-4 /HPF (0 - 0) H Urine WBC 2-4 /HPF (0 - 0) Urine Squamous Epithelial Cells Few /LPF (NONE/OCC) Urine Bacteria Moderate /HPF (NONE) H Urine Yeast Many /HPF (NONE) H White Blood Count 21.7 K/UL (4.8-10.8) H Red Blood Count 2.86 M/UL (4.70-6.10) L Hemoglobin 8.9 G/DL (14.2-18.0) L Hematocrit 27.6 % (42.0-52.0) L Mean Corpuscular Volume 96 FL (80-99) Mean Corpuscular Hemoglobin 31.1 PG (27.0-31.0) H Mean Corpuscular Hemoglobin Concent 32.2 G/DL (32.0-36.0) Red Cell Distribution Width 14.9 % (11.6-14.8) H Platelet Count 248 K/UL (150-450) Mean Platelet Volume 6.8 FL (6.5-10.1) Neutrophils (%) (Auto) % (45.0-75.0) Lymphocytes (%) (Auto) % (20.0-45.0) Monocytes (%) (Auto) % (1.0-10.0) Eosinophils (%) (Auto) % (0.0-3.0) Basophils (%) (Auto) % (0.0-2.0) Differential Total Cells Counted 100 Neutrophils % (Manual) 63 % (45-75) Lymphocytes % (Manual) 17 % (20-45) L Monocytes % (Manual) 6 % (1-10) Eosinophils % (Manual) 7 % (0-3) H Basophils % (Manual) 0 % (0-2) Metamyelocytes % 1 % (0-0) H Myelocytes % 5 % (0-0) H Band Neutrophils 1 % (0-8) Platelet Estimate Adequate Platelet Morphology Normal Anisocytosis 1+ Sodium Level 142 MMOL/L (136-145) Potassium Level 3.2 MMOL/L (3.5-5.1) L Chloride Level 106 MMOL/L (98-107) Carbon Dioxide Level 28 MMOL/L (21-32) Anion Gap 8 mmol/L (5-15) Blood Urea Nitrogen 76 mg/dL (7-18) H Creatinine 1.4 MG/DL (0.55-1.30) H Estimat Glomerular Filtration Rate 50.7 mL/min (>60) Glucose Level 120 MG/DL (74-106) H Calcium Level 9.0 MG/DL (8.5-10.1) Phosphorus Level 3.0 MG/DL (2.5-4.9) Magnesium Level 2.2 MG/DL (1.8-2.4) Total Bilirubin 0.5 MG/DL (0.2-1.0) Aspartate Amino Transf (AST/SGOT) 71 U/L (15-37) H Alanine Aminotransferase (ALT/SGPT) 152 U/L (12-78) H Alkaline Phosphatase 89 U/L (46-116) Total Protein 6.3 G/DL (6.4-8.2) L Albumin 2.2 G/DL (3.4-5.0) L Globulin 4.1 g/dL Albumin/Globulin Ratio 0.5 (1.0-2.7) L Random Vancomycin Level 21.3 ug/mL Plan Problems: (1) Respiratory distress (2) Renal failure Assessment & Plan: plan HD line soon temp hd consent from daughter (3) Metabolic acidosis (4) NSTEMI (non-ST elevated myocardial infarction) (5) Sepsis Assessment & Plan: okay for tf iv fluids vent via trach weaning vent g tube okay decubitus eval done and local care provided labs noted acidosis plan HD cont abx as per ID will follow with recs thank you DAILY ESTIMATED NEEDS: Needs based on Critical care, wound, AUNDREA/ 62.7kg 22-28 kcals/kg 2034-5478 total kcals 0.8-1.25 (increase w/ renal fxn improvement) g protein/kg 50-78 g total protein 20-25 mL/kg 9267-7504 total fluid mLs NUTRITION DIAGNOSIS: Swallowing difficulty R/T respiratory failure as evidenced by trach/vent dep, PEG dep. CURRENT TF: NPO ENTERAL NUTRITION RECOMMENDATIONS: Nepro @ 35ml/hr x 24 hrs to provide 840ml, 1512kcal, 68g prot, 611ml free water * As medically appropriate, initiate Nepro, rec goal rate of 35ml/hr x 24 hrs * HOB over 30 degrees/ water flush per MD ADDITIONAL RECOMMENDATIONS: * Per SNF: HT=68" and DP=442zsw -> daily calibrated bedscale wt * Monitor renal fxn and lytes, ability to increase est prot needs * NISS w/ TF -> h/o DM * Probiotics for diarrhea * Wound healing: Add Nephrovite x 1, ZnSO4 220mg QD x 10 days Kenji BID w/ TF Rohit Brand Aug 10, 2020 14:04
[2020-08-10 16:00] VITALS: BP 151/86
--- NOTE | 2020-08-10 16:35 | Diagnostic Imaging Report ---
CLINICAL INDICATION:Chronic respiratory failure, diabetes, hypoxia, pain TECHNIQUE: Patient given enteric contrast. Spiral acquisitions obtained through the chest, abdomen, and pelvis. Multiplanar reconstructions were generated. Total dose length product 316 mGycm. CTDIvol(s) 4 mGy. Radiation dose was minimized using automated exposure control COMPARISON: none FINDINGS Chest: There are posterior dependent atelectatic changes at both lung bases in the posterior upper lobes. A calcified granuloma is seen in the left upper lobe. No infiltrates, effusions, masses, nodules, or congestion demonstrated. There is a tracheostomy. Unremarkable esophagus. The heart is mildly enlarged. No pericardial effusion. No mediastinal or hilar mass or adenopathy. There is a right jugular dialysis catheter. No axillary or chest wall mass or adenopathy. The bones are unremarkable. Abdomen pelvis: The appendix is normal. Considerable stool is seen throughout the colon. No evidence of diverticulosis or diverticulitis. There is a rectal tube in place. No small bowel distention or small bowel wall thickening. Ingested contrast is seen to have traversed the entirety of the small bowel and most of the colon. There is a gastrostomy in good position. No free or loculated intraperitoneal gas or fluid is evident. Lack of IV contrast limits assessment of the solid organs. The liver, gallbladder, bile ducts, pancreas, spleen, adrenals are unremarkable. The kidneys demonstrate bilateral cysts. No renal or ureteral calculi, hydronephrosis, or hydroureter. The bladder is nearly empty, contains a Dumont catheter. The bladder is thick-walled. The prostate is somewhat enlarged. The bones are unremarkable. There is very slight edema of the bilateral hip and buttock subcutaneous fat. IMPRESSION: No definite acute abnormality Lungs demonstrate posterior dependent atelectatic changes and a left upper lobe calcified granuloma Cardiomegaly Tracheostomy, temporary dialysis catheter, rectal tube, gastrostomy noted Moderate retained stool, could indicate constipation Empty bladder with a Dumont catheter.. Bladder wall thickening. This could be an artifact of lack of distention, but the possibility of cystitis should also be considered. Correlate with clinical and laboratory findings Mild prostatomegaly Slight edema of the bilateral hip and subcutaneous fat Incidental finding of bilateral renal cysts The CT scanner at [facility] is accredited by the [employer] and the scans are performed using protocols designed to limit radiation exposure to as low as reasonably achievable to attain images of sufficient resolution adequate for diagnostic evaluation.
--- NOTE | 2020-08-10 17:45 | General Progress Note ---
Subjective Date patient seen: Aug 10, 2020 Allergies: Coded Allergies: No Known Allergies (Unverified , 08/01/20) Subjective Chart reviewed. Patient admitted for sepsis of unclear etiology. With rising WBCs. With soft stools but not watery. C. difficile negative. Patient on chronic vent. Chronically bedbound. No pressure ulcers or other skin issues per RN. Culture still pending. Further subjective history unable to be obtained due to baseline encephalopathy. ROS unable to obtain due to ALOC Objective Last 24 Hour Vital Signs Date Time Temp Pulse Resp B/P (MAP) Pulse Ox O2 Delivery O2 Flow Rate FiO2 08/10/20 16:00 74 08/10/20 16:00 30 08/10/20 16:00 97.7 85 20 151/86 (107) 100 08/10/20 15:59 Mechanical Ventilator 08/10/20 13:08 98 129/80 08/10/20 13:01 74 16 30 08/10/20 12:00 82 08/10/20 11:54 30 08/10/20 11:53 97.7 98 20 129/80 (96) 100 08/10/20 11:53 Mechanical Ventilator 08/10/20 08:00 30 08/10/20 08:00 72 08/10/20 08:00 97.5 87 20 158/96 (116) 100 08/10/20 08:00 Mechanical Ventilator 08/10/20 06:45 75 16 30 08/10/20 05:58 89 155/95 08/10/20 04:02 Mechanical Ventilator 08/10/20 04:01 30 08/10/20 04:00 89 08/10/20 04:00 97.7 95 18 155/95 (115) 100 08/10/20 01:07 95 18 30 08/10/20 00:43 98.2 87 20 126/79 (95) 99 08/10/20 00:42 30 08/10/20 00:34 Mechanical Ventilator 08/10/20 00:00 89 08/09/20 21:09 110 136/92 08/09/20 20:00 30 08/09/20 20:00 112 08/09/20 20:00 98.4 110 20 136/92 (107) 99 08/09/20 20:00 Mechanical Ventilator 08/09/20 19:36 98 16 30 Intake and Output 08/09/20 08/10/20 19:00 07:00 Intake Total 625 ml 520 ml Output Total 500 ml 350 ml Balance 125 ml 170 ml Intake Free Water 90 ml 120 ml IV Total 55 ml Tube Feeding 480 ml 400 ml Output Urine Total 400 ml 350 ml Stool Total 100 ml # Bowel Movements 50 Laboratory Tests 08/09/20 23:00: Urine Color Yellow, Urine Appearance Cloudy, Urine pH 5, Urine Specific [place] 1.020, Urine Protein 3+H, Urine Glucose (UA) Negative, Urine Ketones Negative, Urine Blood 1+H, Urine Nitrite Negative, Urine Bilirubin Negative, Urine Urobilinogen Normal, Urine Leukocyte Esterase 1+H, Urine RBC 2-4H, Urine WBC 2- 4, Urine Squamous Epithelial Cells Few, Urine Bacteria ModerateH, Urine Yeast ManyH 08/10/20 03:20: White Blood Count 21.7H, Red Blood Count 2.86L, Hemoglobin 8.9L, Hematocrit 27.6L, Mean Corpuscular Volume 96, Mean Corpuscular Hemoglobin 31.1H, Mean Corpuscular Hemoglobin Concent 32.2, Red Cell Distribution Width 14.9H, Platelet Count 248, Mean Platelet Volume 6.8, Neutrophils (%) (Auto) , Lymphocytes (%) (Auto) , Monocytes (%) (Auto) , Eosinophils (%) (Auto) , Basophils (%) (Auto) , Differential Total Cells Counted 100, Neutrophils % (Manual) 63, Lymphocytes % (Manual) 17L, Monocytes % (Manual) 6, Eosinophils % (Manual) 7H, Basophils % (Manual) 0, Metamyelocytes % 1H, Myelocytes % 5H, Band Neutrophils 1, Platelet Estimate Adequate, Platelet Morphology Normal, Anisocytosis 1+, Sodium Level 142, Potassium Level 3.2L, Chloride Level 106, Carbon Dioxide Level 28, Anion Gap 8, Blood Urea Nitrogen 76H, Creatinine 1.4H, Estimat Glomerular Filtration Rate 50.7, Glucose Level 120H, Calcium Level 9.0, Phosphorus Level 3.0, Magnesium Level 2.2, Total Bilirubin 0.5, Aspartate Amino Transf (AST/SGOT) 71H, Alanine Aminotransferase (ALT/SGPT) 152H, Alkaline Phosphatase 89, Total Protein 6.3L, Albumin 2.2L, Globulin 4.1, Albumin/Globulin Ratio 0.5L 08/10/20 12:20: Random Vancomycin Level 21.3 Height (Feet): 5 Height (Inches): 7.00 Weight (Pounds): 175 Objective General: Chronic trach/vent dependent male. Alert, not oriented HEENT: Normocephalic cephalic atraumatic, pupils equal round reactive to light and accommodation, nares patent and no symmetrical, no tonsillar exudates, mucous membranes moist + trach in place CV: Regular rate regular rhythm, no murmurs, rubs, or gallops Pulm: Lungs clear to auscultation bilaterally. No wheezes, rhonchi, or rales GI: Soft, nontender, nondistended, bowel sounds present Neuro: CN 2-12 intact bilaterally, no focal signs. Ext: No lower extremity edema bilaterally + some UE and LE swelling bilaterally tace to 1+ Skin: no rashes lesions or ulcers Msk: Joints symmetrical in upper extremity and lower extremity bilaterally, no joint swelling. Lymph: No lymphadenopathy in upper extremity and lower extremity Assessment/Plan Assessment/Plan: #Acute on Chronic Resp Failure/Trach and Vent Dependent > Possible pneumoni on recent CXR- reviewed #Sepsis- Unclear Source, Rule out VAP #leukocytosis - worsening #elevated D-dimer > Afebrile. ? UTI - Appreciate ID recommendations: [place] - Appreciate Pulm recommendations: Dr. Lee - ABX per ID - Vanc per pharm (08/09 - ) - Zosyn (08/09 - ) - CT chest, abd, pelvis non contrast per ID - Check Venous duplex UE and LE bilaterally - Consider VQ scan although vent setting stable- defer to pulm - repeat COVID - Cultures thus far negative #Acute Renal Failure requiring HD #Associated AGMA #hypokalemia- replete PRN - Appreciate Nephro-Pirouz - Renal function is improving, can likely d/c HD -Monitor urine output -Avoid Nephrotoxic Agents -Phosphlo/Renvela #NSTEMI-Demand Ischemia -Appreciate Dr. 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 Prescribe RAGINI/ARB upon discharge for patients with left ventricular systolic dysfunction. If not, the reason is clearly documented in the medical chart [] Measure #8 (CHF): All ages. Prescribe a beta herbie upon discharge for patients with left ventricular systolic dysfunction. If not, the reason is clearly documented in the medical chart. [] Measure #47: Advance care plan or surrogate decision maker documented in the medical record. [x] Measure #130 The provider has documented, updated, or reviewed the patients current medication list and has documented it in the patients note. [x] Measure #374 (All): Send report to referring provider. [] Measure #407(Sepsis due to MSSA bacteremia): Age 18+ Patient treated with a beta-lactam antibiotic (Nafcillin, Oxacillin or Cefazolin) as definitive therapy. MEDICAL COMPLEXITYHigh complexity medical decision making (need 2/3 categories)Problem - need 4 points [x]Acute/new problem with new plan for workup (4 points, 1 max) [] Acute/new problem without additional workup (3 points, 1 max) [x] Unstable chronic problem actively being managed (2 point each, 2 max) [x] Stable chronic problem actively being managed (1 point each, 2 max) [] Self-limited/transient process (constipation, muscle ache, etc) (1 point each, 2 max) Data - need 4 points [x] Reviewed labs/imaging studies (1 points, 2 max) [x] Independent review of imaging (EKG, xrays, etc) (2 points, 2 max) [x] Discussed case with consult/other MD/RN (2 points, 2 max) High Risk - qualify if have one of the following: [x] Severe exacerbation of acute problem, acute mental status change, IV narcotics, monitoring drug levels (vancomycin, INR, tacrolimus etc) I spent 37 minutes on this patient's case, and 20 mins was dedicated to counseli ng and/or care coordination. Discussed with ID, consultants, RN I spent an additional 31 minutes reviewing medical records including prior hospitalization notes, clinic notes, consultation notes, prior labs, and prior imaging. Time of note may not reflect time of encounter Fredrick Silva D.O. Aug 10, 2020 17:45
[2020-08-10] MEDS ORDERED: Vancomycin 1.25gm/250ml Premix IVPB SCH (18:00)
--- NOTE | 2020-08-10 18:44 | Diagnostic Imaging Report ---
EXAM: US Duplex Bilateral Upper Extremities Veins CLINICAL HISTORY: DVT TECHNIQUE: Real-time duplex ultrasound scan of the bilateral upper extremity veins integrating B-mode two-dimensional vascular structure, Doppler spectral analysis, color flow Doppler imaging and compression. COMPARISON: No relevant prior studies available. FINDINGS: Right deep veins: Unremarkable. No DVT in the right internal jugular, subclavian, axillary, or brachial veins. The veins demonstrate normal color flow, are normally compressible, with normal phasic flow and/or augmentation response. Right superficial veins: Unremarkable. No thrombus in the visualized right basilic and cephalic veins. Left deep veins: Unremarkable. No DVT in the left internal jugular, subclavian, axillary, or brachial veins. The veins demonstrate normal color flow, are normally compressible, with normal phasic flow and/or augmentation response. Left superficial veins: Unremarkable. No thrombus in the visualized left basilic and cephalic veins. Soft tissues: Edema within the soft tissues of the forearms. IMPRESSION: No superficial or deep vein thrombosis.
--- NOTE | 2020-08-10 19:05 | Diagnostic Imaging Report ---
EXAM: US Duplex Bilateral Lower Extremities Veins CLINICAL HISTORY: DVT TECHNIQUE: Real-time duplex ultrasound scan of the bilateral lower extremity veins integrating B-mode two-dimensional vascular structure, Doppler spectral analysis, color flow Doppler imaging and compression. COMPARISON: No relevant prior studies available. FINDINGS: Right deep veins: Unremarkable. No DVT in the right common femoral, femoral, proximal deep femoral or popliteal veins. The veins demonstrate normal color flow, are normally compressible, with normal phasic flow and/or augmentation response. Right superficial veins: Unremarkable. No thrombus in the visualized right great saphenous vein. Left deep veins: Unremarkable. No DVT in the left common femoral, femoral, proximal deep femoral or popliteal veins. The veins demonstrate normal color flow, are normally compressible, with normal phasic flow and/or augmentation response. Left superficial veins: Unremarkable. No thrombus in the visualized left great saphenous vein. Soft tissues: No acute findings. No popliteal cyst. IMPRESSION: Normal bilateral lower extremity duplex venous ultrasound.
--- NOTE | 2020-08-10 19:57 | Cardiac Electrophysiology PN ---
Assessment/Plan Assessment/Plan 1. Troponin elevation. Levels are coming down at 0.8 to 0.5. Due to renal failure with BUN of 343, creatinine of 4.1 as well as sepsis with white count of 22,000. His EKG also shows sinus rhythm with inferolateral ischemia. On Lopressor 12.5 bid. 2. Shortness of breath with respiratory failure, status post tracheostomy, on the ventilator with 30% FiO2. 3. Dysphagia, status post PEG placement. 4. Acute renal failure with BUN of 343, creatinine of 4.1. S/P Right IJ Nicholas catheter 08/07. Had first HD on 08/03 No more dialysis now 5. Diabetes. 6. History of left thalamic hemorrhage. Subjective Subjective S/P Right IJ Nicholas catheter placement. On the vent with 30% Fio2 via trach. HR 100s Femoral Nicholas to be removed today. Objective Last 24 Hour Vital Signs Date Time Temp Pulse Resp B/P (MAP) Pulse Ox O2 Delivery O2 Flow Rate FiO2 08/10/20 19:49 73 19 30 08/10/20 16:00 74 08/10/20 16:00 30 08/10/20 16:00 97.7 85 20 151/86 (107) 100 08/10/20 15:59 Mechanical Ventilator 08/10/20 13:08 98 129/80 08/10/20 13:01 74 16 30 08/10/20 12:00 82 08/10/20 11:54 30 08/10/20 11:53 97.7 98 20 129/80 (96) 100 08/10/20 11:53 Mechanical Ventilator 08/10/20 08:00 30 08/10/20 08:00 72 08/10/20 08:00 97.5 87 20 158/96 (116) 100 08/10/20 08:00 Mechanical Ventilator 08/10/20 06:45 75 16 30 08/10/20 05:58 89 155/95 08/10/20 04:02 Mechanical Ventilator 08/10/20 04:01 30 08/10/20 04:00 89 08/10/20 04:00 97.7 95 18 155/95 (115) 100 08/10/20 01:07 95 18 30 08/10/20 00:43 98.2 87 20 126/79 (95) 99 08/10/20 00:42 30 08/10/20 00:34 Mechanical Ventilator 08/10/20 00:00 89 08/09/20 21:09 110 136/92 08/09/20 20:00 30 08/09/20 20:00 112 08/09/20 20:00 98.4 110 20 136/92 (107) 99 08/09/20 20:00 Mechanical Ventilator Intake and Output 08/09/20 08/10/20 19:00 07:00 Intake Total 625 ml 520 ml Output Total 500 ml 350 ml Balance 125 ml 170 ml Intake Free Water 90 ml 120 ml IV Total 55 ml Tube Feeding 480 ml 400 ml Output Urine Total 400 ml 350 ml Stool Total 100 ml # Bowel Movements 50 Laboratory Tests Test 08/09/20 23:00 08/10/20 03:20 08/10/20 12:20 Urine Color Yellow Urine Appearance Cloudy Urine pH 5 (4.5-8.0) Urine Specific [place] 1.020 (1.005-1.035) Urine Protein 3+ (NEGATIVE) H Urine Glucose (UA) Negative (NEGATIVE) Urine Ketones Negative (NEGATIVE) Urine Blood 1+ (NEGATIVE) H Urine Nitrite Negative (NEGATIVE) Urine Bilirubin Negative (NEGATIVE) Urine Urobilinogen Normal MG/DL (0.0-1.0) Urine Leukocyte Esterase 1+ (NEGATIVE) H Urine RBC 2-4 /HPF (0 - 0) H Urine WBC 2-4 /HPF (0 - 0) Urine Squamous Epithelial Cells Few /LPF (NONE/OCC) Urine Bacteria Moderate /HPF (NONE) H Urine Yeast Many /HPF (NONE) H White Blood Count 21.7 K/UL (4.8-10.8) H Red Blood Count 2.86 M/UL (4.70-6.10) L Hemoglobin 8.9 G/DL (14.2-18.0) L Hematocrit 27.6 % (42.0-52.0) L Mean Corpuscular Volume 96 FL (80-99) Mean Corpuscular Hemoglobin 31.1 PG (27.0-31.0) H Mean Corpuscular Hemoglobin Concent 32.2 G/DL (32.0-36.0) Red Cell Distribution Width 14.9 % (11.6-14.8) H Platelet Count 248 K/UL (150-450) Mean Platelet Volume 6.8 FL (6.5-10.1) Neutrophils (%) (Auto) % (45.0-75.0) Lymphocytes (%) (Auto) % (20.0-45.0) Monocytes (%) (Auto) % (1.0-10.0) Eosinophils (%) (Auto) % (0.0-3.0) Basophils (%) (Auto) % (0.0-2.0) Differential Total Cells Counted 100 Neutrophils % (Manual) 63 % (45-75) Lymphocytes % (Manual) 17 % (20-45) L Monocytes % (Manual) 6 % (1-10) Eosinophils % (Manual) 7 % (0-3) H Basophils % (Manual) 0 % (0-2) Metamyelocytes % 1 % (0-0) H Myelocytes % 5 % (0-0) H Band Neutrophils 1 % (0-8) Platelet Estimate Adequate Platelet Morphology Normal Anisocytosis 1+ Sodium Level 142 MMOL/L (136-145) Potassium Level 3.2 MMOL/L (3.5-5.1) L Chloride Level 106 MMOL/L (98-107) Carbon Dioxide Level 28 MMOL/L (21-32) Anion Gap 8 mmol/L (5-15) Blood Urea Nitrogen 76 mg/dL (7-18) H Creatinine 1.4 MG/DL (0.55-1.30) H Estimat Glomerular Filtration Rate 50.7 mL/min (>60) Glucose Level 120 MG/DL (74-106) H Calcium Level 9.0 MG/DL (8.5-10.1) Phosphorus Level 3.0 MG/DL (2.5-4.9) Magnesium Level 2.2 MG/DL (1.8-2.4) Total Bilirubin 0.5 MG/DL (0.2-1.0) Aspartate Amino Transf (AST/SGOT) 71 U/L (15-37) H Alanine Aminotransferase (ALT/SGPT) 152 U/L (12-78) H Alkaline Phosphatase 89 U/L (46-116) Total Protein 6.3 G/DL (6.4-8.2) L Albumin 2.2 G/DL (3.4-5.0) L Globulin 4.1 g/dL Albumin/Globulin Ratio 0.5 (1.0-2.7) L Random Vancomycin Level 21.3 ug/mL Microbiology Date/Time Source Procedure Growth Status 08/10/20 11:20 Nasopharynx SARS-CoV-2 RdRp Gene Assay - Final Complete Objective HEAD AND NECK: Status post tracheostomy with no JVD. LUNGS: Coarse rhonchi. CARDIOVASCULAR: Regular S1 and S2 with no gallop. ABDOMEN: Status post G-tube. EXTREMITIES: No pitting edema. Gregorio Mari MD Aug 10, 2020 19:57
[2020-08-10 20:00] VITALS: BP 153/91
--- NOTE | 2020-08-10 20:22 | Neurology Progress Note ---
Interim History Interim History ROS Limited/Unobtainable: Yes Interim History no new deficits Objective Physical Exam Last Vital Signs Date Time Temp Pulse Resp B/P (MAP) Pulse Ox O2 Delivery O2 Flow Rate FiO2 08/10/20 19:49 73 19 30 08/10/20 16:00 97.7 151/86 (107) 100 08/10/20 15:59 Mechanical Ventilator Laboratory Tests Test 08/09/20 23:00 08/10/20 03:20 08/10/20 12:20 Urine Color Yellow Urine Appearance Cloudy Urine pH 5 (4.5-8.0) Urine Specific [place] 1.020 (1.005-1.035) Urine Protein 3+ (NEGATIVE) H Urine Glucose (UA) Negative (NEGATIVE) Urine Ketones Negative (NEGATIVE) Urine Blood 1+ (NEGATIVE) H Urine Nitrite Negative (NEGATIVE) Urine Bilirubin Negative (NEGATIVE) Urine Urobilinogen Normal MG/DL (0.0-1.0) Urine Leukocyte Esterase 1+ (NEGATIVE) H Urine RBC 2-4 /HPF (0 - 0) H Urine WBC 2-4 /HPF (0 - 0) Urine Squamous Epithelial Cells Few /LPF (NONE/OCC) Urine Bacteria Moderate /HPF (NONE) H Urine Yeast Many /HPF (NONE) H White Blood Count 21.7 K/UL (4.8-10.8) H Red Blood Count 2.86 M/UL (4.70-6.10) L Hemoglobin 8.9 G/DL (14.2-18.0) L Hematocrit 27.6 % (42.0-52.0) L Mean Corpuscular Volume 96 FL (80-99) Mean Corpuscular Hemoglobin 31.1 PG (27.0-31.0) H Mean Corpuscular Hemoglobin Concent 32.2 G/DL (32.0-36.0) Red Cell Distribution Width 14.9 % (11.6-14.8) H Platelet Count 248 K/UL (150-450) Mean Platelet Volume 6.8 FL (6.5-10.1) Neutrophils (%) (Auto) % (45.0-75.0) Lymphocytes (%) (Auto) % (20.0-45.0) Monocytes (%) (Auto) % (1.0-10.0) Eosinophils (%) (Auto) % (0.0-3.0) Basophils (%) (Auto) % (0.0-2.0) Differential Total Cells Counted 100 Neutrophils % (Manual) 63 % (45-75) Lymphocytes % (Manual) 17 % (20-45) L Monocytes % (Manual) 6 % (1-10) Eosinophils % (Manual) 7 % (0-3) H Basophils % (Manual) 0 % (0-2) Metamyelocytes % 1 % (0-0) H Myelocytes % 5 % (0-0) H Band Neutrophils 1 % (0-8) Platelet Estimate Adequate Platelet Morphology Normal Anisocytosis 1+ Sodium Level 142 MMOL/L (136-145) Potassium Level 3.2 MMOL/L (3.5-5.1) L Chloride Level 106 MMOL/L (98-107) Carbon Dioxide Level 28 MMOL/L (21-32) Anion Gap 8 mmol/L (5-15) Blood Urea Nitrogen 76 mg/dL (7-18) H Creatinine 1.4 MG/DL (0.55-1.30) H Estimat Glomerular Filtration Rate 50.7 mL/min (>60) Glucose Level 120 MG/DL (74-106) H Calcium Level 9.0 MG/DL (8.5-10.1) Phosphorus Level 3.0 MG/DL (2.5-4.9) Magnesium Level 2.2 MG/DL (1.8-2.4) Total Bilirubin 0.5 MG/DL (0.2-1.0) Aspartate Amino Transf (AST/SGOT) 71 U/L (15-37) H Alanine Aminotransferase (ALT/SGPT) 152 U/L (12-78) H Alkaline Phosphatase 89 U/L (46-116) Total Protein 6.3 G/DL (6.4-8.2) L Albumin 2.2 G/DL (3.4-5.0) L Globulin 4.1 g/dL Albumin/Globulin Ratio 0.5 (1.0-2.7) L Random Vancomycin Level 21.3 ug/mL Neurologic Exam Objective trach tachy grimaces to pain lethargic Impression/Recommendations Problems: (1) Respiratory distress (2) Renal failure (3) Metabolic acidosis (4) NSTEMI (non-ST elevated myocardial infarction) (5) Sepsis Diagnostic Impression Encephalopathy, likely metabolic sepsis hx of left thalamic hemorrhage likely from htn icu level map > 65 monitor mental status cont atb fu cultures ok for heparin SC given ich is chronic Pedro Hale MD Aug 10, 2020 20:21
[2020-08-10] MEDS: Dyna-Hex 2% Top Sol 2oz TOPIC SCH (20:31)
[2020-08-11] VITALS: BP 145/87
[2020-08-11 04:00] VITALS: BP 135/82
[2020-08-11 05:20] LABS: BASOPHILS % (AUTO) 1.3 % (0.0-2.0); EOSINOPHILS % (AUTO) 1.2 % (0.0-3.0); HEMATOCRIT 24.7 % (42.0-52.0); HEMOGLOBIN 8.2 G/DL (14.2-18.0); MEAN CORPUSCULAR VOLUME 95 FL (80-99); MONOCYTES % (AUTO) 5.8 % (1.0-10.0); NEUTROPHILS % (AUTO) 79.7 % (45.0-75.0); PLATELET COUNT 256 K/UL (150-450); RED BLOOD COUNT 2.59 M/UL (4.70-6.10); RED CELL DISTRIBUTION WIDTH 15.3 % (11.6-14.8); WHITE BLOOD COUNT 17.7 K/UL (4.8-10.8)
[2020-08-11 06:17] LABS: ALBUMIN/GLOBULIN RATIO 0.5 (1.0-2.7); BILIRUBIN,TOTAL 0.4 MG/DL (0.2-1.0); CALCIUM 8.6 MG/DL (8.5-10.1); CREATININE 1.7 MG/DL (0.55-1.30); PHOSPHORUS 2.3 MG/DL (2.5-4.9); POTASSIUM 2.9 MMOL/L (3.5-5.1)
--- NOTE | 2020-08-11 06:30 | Hematology/Onc Progress Note ---
Assessment/Plan Assessment/Plan ASSESSMENT AND PLAN: # Leukocytosis is due to sepsis, fevers, leukocytosis. Avoid nephrotoxic drugs. --> ABX Continue Zyvox, cefepime, and Flagyl --> iamging has been reviewed --> as per pulm and id recs --> wbc 22-->18-->12->11->16-->22-->18 # Anemia due to hemodilution --> if lower than 10, get workup --> transfuse prn --> hgb 11-->10-->7.4-->9->8.8-->8.9-->8.2 # Thrombocytopenia due to underlying infection --> medications have been reviewed --> 186-->127-->105->160 --> is on hep, monitor --> smear has been reviewed --> hep and hiv neg # Trach, vent. # Dysphagia, on G-tube. 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 # Diabetes. # Hypertension. # Acute renal failure. # GERD. # Dvt ppx heparin sq Appreciate consultation and anil RN Subjective Allergies: Coded Allergies: No Known Allergies (Unverified , 08/01/20) All Systems: reviewed and negative except above Subjective 08/04 remains on vent, abx, labs reviewed, meds noted 08/06 hd prn, no bleeding,with mota and rectal tube, labs noted 08/07 tolerating gt feeds, no new events overnight, anil rn 08/08 nv, vent, tolerating tube feeds, labs noted 08/09 nv, vent, tolerating tube feeds, labs pending 08/10 nv, trach/vent, no new events, labs are noted, comfortable 08/11 nv, trach/vent, no new events, no night sweats, abx Objective Objective Current Medications Medications (Trade) Dose Ordered Sig/Maegan Route PRN Reason Start Time Stop Time Status Last Admin Dose Admin Acetaminophen (Tylenol) 650 mg Q4H PRN GT For Pain 08/02/20 15:45 09/01/20 15:44 08/03/20 02:13 Acetaminophen (Tylenol) 650 mg Q4H PRN GT Temp >100.5 08/02/20 15:45 09/01/20 15:44 Barium Sulfate (Readi-Cat 2) 450 ml NOW PRN ORAL Radiology Procedure 08/10/20 12:45 08/12/20 12:44 Calcium Acetate (Phoslo) 1,334 mg TIAC GT 08/09/20 16:30 11/03/20 11:29 08/10/20 17:02 Chlorhexidine Gluconate (Deisy-Hex 2%) 1 applic BIOTEC TOPIC 08/02/20 21:00 10/31/20 20:59 08/10/20 20:31 Dextrose 1,000 ml @ 0 mls/hr Q0M IV 08/02/20 09:15 09/01/20 09:14 Heparin Sodium (Porcine) (Heparin 5000 units/ml) 5,000 units EVERY 12 HOURS SUBQ 08/02/20 21:00 09/16/20 20:59 08/10/20 20:31 Lansoprazole (Prevacid) 30 mg DAILY GT 08/10/20 09:00 09/09/20 08:59 08/10/20 08:55 Metoclopramide HCl (Reglan) 10 mg Q6H PRN IVP Nausea & Vomiting 08/05/20 14:15 09/04/20 14:14 08/07/20 04:38 Metoprolol Tartrate (Lopressor) 25 mg EVERY 8 HOURS GT 08/09/20 06:00 11/07/20 05:59 08/10/20 21:43 Piperacillin Sod/ Tazobactam Sod 3.375 gm/Sodium Chloride 110 ml @ 27.5 mls/hr EVERY 8 HOURS IVPB 08/09/20 22:00 08/14/20 21:59 08/10/20 21:43 Sevelamer Carbonate (Renvela) 800 mg THREE TIMES A DAY GT 08/09/20 18:00 11/02/20 12:59 08/10/20 17:02 Vancomycin HCl 250 ml @ 166.667 mls/hr Q24H IVPB 08/10/20 18:00 08/15/20 17:59 08/10/20 17:38 Vancomycin HCl (Vanco pharmacy to dose) 1 ea DAILY PRN MISC Per rx protocol 08/09/20 18:30 09/08/20 18:29 Last 24 Hour Vital Signs Date Time Temp Pulse Resp B/P (MAP) Pulse Ox O2 Delivery O2 Flow Rate FiO2 08/11/20 04:00 98.1 90 20 135/82 (99) 99 08/11/20 04:00 Mechanical Ventilator 08/11/20 04:00 93 08/11/20 04:00 30 08/11/20 03:21 68 17 30 08/11/20 00:00 Mechanical Ventilator 08/11/20 00:00 72 08/11/20 00:00 30 08/11/20 00:00 97.9 78 20 145/87 (106) 100 08/10/20 23:02 75 16 30 08/10/20 21:43 88 129/86 08/10/20 20:00 68 08/10/20 20:00 Mechanical Ventilator 08/10/20 20:00 97.5 75 20 153/91 (111) 100 08/10/20 20:00 30 08/10/20 19:49 73 19 30 08/10/20 16:00 74 08/10/20 16:00 30 08/10/20 16:00 97.7 85 20 151/86 (107) 100 08/10/20 15:59 Mechanical Ventilator 08/10/20 13:08 98 129/80 08/10/20 13:01 74 16 30 08/10/20 12:00 82 08/10/20 11:54 30 08/10/20 11:53 97.7 98 20 129/80 (96) 100 08/10/20 11:53 Mechanical Ventilator 08/10/20 08:00 30 08/10/20 08:00 72 08/10/20 08:00 97.5 87 20 158/96 (116) 100 08/10/20 08:00 Mechanical Ventilator 08/10/20 06:45 75 16 30 08/10/20 05:58 89 155/95 08/10/20 04:02 Mechanical Ventilator 08/10/20 04:01 30 08/10/20 04:00 89 08/10/20 04:00 97.7 95 18 155/95 (115) 100 08/10/20 01:07 95 18 30 08/10/20 00:43 98.2 87 20 126/79 (95) 99 08/10/20 00:42 30 08/10/20 00:34 Mechanical Ventilator 08/10/20 00:00 89 08/09/20 21:09 110 136/92 08/09/20 20:00 30 08/09/20 20:00 112 08/09/20 20:00 98.4 110 20 136/92 (107) 99 08/09/20 20:00 Mechanical Ventilator 08/09/20 19:36 98 16 30 08/09/20 16:00 30 08/09/20 16:00 Mechanical Ventilator 08/09/20 16:00 97.2 82 18 152/92 (112) 99 08/09/20 15:40 87 18 30 08/09/20 15:23 90 08/09/20 14:11 100 155/104 08/09/20 12:00 Mechanical Ventilator 08/09/20 12:00 30 08/09/20 11:57 97.7 100 22 155/104 (121) 99 08/09/20 11:30 80 08/09/20 11:05 90 20 30 08/09/20 08:00 96.6 100 21 146/91 (109) 100 08/09/20 08:00 30 08/09/20 08:00 Mechanical Ventilator 08/09/20 07:46 80 08/09/20 07:15 85 19 30 Intake and Output 08/10/20 08/11/20 19:00 07:00 Intake Total 640 ml 657.79 ml Output Total 600 ml 500 ml Balance 40 ml 157.79 ml Intake Free Water 120 ml 100 ml IV Total 117.79 ml Tube Feeding 520 ml 440 ml Output Urine Total 600 ml 500 ml Labs Test 08/09/20 03:24 08/09/20 23:00 08/10/20 03:20 08/10/20 12:20 White Blood Count 19.4 K/UL (4.8-10.8) 21.7 K/UL (4.8-10.8) Red Blood Count 2.95 M/UL (4.70-6.10) 2.86 M/UL (4.70-6.10) Hemoglobin 9.3 G/DL (14.2-18.0) 8.9 G/DL (14.2-18.0) Hematocrit 27.3 % (42.0-52.0) 27.6 % (42.0-52.0) Mean Corpuscular Volume 92 FL (80-99) 96 FL (80-99) Mean Corpuscular Hemoglobin 31.7 PG (27.0-31.0) 31.1 PG (27.0-31.0) Mean Corpuscular Hemoglobin Concent 34.3 G/DL (32.0-36.0) 32.2 G/DL (32.0-36.0) Red Cell Distribution Width 15.9 % (11.6-14.8) 14.9 % (11.6-14.8) Platelet Count 220 K/UL (150-450) 248 K/UL (150-450) Mean Platelet Volume 7.5 FL (6.5-10.1) 6.8 FL (6.5-10.1) Neutrophils (%) (Auto) % (45.0-75.0) % (45.0-75.0) Lymphocytes (%) (Auto) % (20.0-45.0) % (20.0-45.0) Monocytes (%) (Auto) % (1.0-10.0) % (1.0-10.0) Eosinophils (%) (Auto) % (0.0-3.0) % (0.0-3.0) Basophils (%) (Auto) % (0.0-2.0) % (0.0-2.0) Differential Total Cells Counted 100 100 Neutrophils % (Manual) 80 % (45-75) 63 % (45-75) Lymphocytes % (Manual) 7 % (20-45) 17 % (20-45) Monocytes % (Manual) 4 % (1-10) 6 % (1-10) Eosinophils % (Manual) 2 % (0-3) 7 % (0-3) Basophils % (Manual) 0 % (0-2) 0 % (0-2) Metamyelocytes % 1 % (0-0) 1 % (0-0) Myelocytes % 3 % (0-0) 5 % (0-0) Band Neutrophils 3 % (0-8) 1 % (0-8) Platelet Estimate Adequate Adequate Platelet Morphology Normal Normal Anisocytosis 1+ 1+ Sodium Level 143 MMOL/L (136-145) 142 MMOL/L (136-145) Potassium Level 3.6 MMOL/L (3.5-5.1) 3.2 MMOL/L (3.5-5.1) Chloride Level 106 MMOL/L (98-107) 106 MMOL/L (98-107) Carbon Dioxide Level 26 MMOL/L (21-32) 28 MMOL/L (21-32) Anion Gap 11 mmol/L (5-15) 8 mmol/L (5-15) Blood Urea Nitrogen 77 mg/dL (7-18) 76 mg/dL (7-18) Creatinine 1.5 MG/DL (0.55-1.30) 1.4 MG/DL (0.55-1.30) Estimat Glomerular Filtration Rate 46.8 mL/min (>60) 50.7 mL/min (>60) Glucose Level 151 MG/DL (74-106) 120 MG/DL (74-106) Calcium Level 8.8 MG/DL (8.5-10.1) 9.0 MG/DL (8.5-10.1) Phosphorus Level 3.1 MG/DL (2.5-4.9) 3.0 MG/DL (2.5-4.9) Magnesium Level 2.2 MG/DL (1.8-2.4) 2.2 MG/DL (1.8-2.4) Total Bilirubin 0.4 MG/DL (0.2-1.0) 0.5 MG/DL (0.2-1.0) Aspartate Amino Transf (AST/SGOT) 96 U/L (15-37) 71 U/L (15-37) Alanine Aminotransferase (ALT/SGPT) 199 U/L (12-78) 152 U/L (12-78) Alkaline Phosphatase 98 U/L (46-116) 89 U/L (46-116) Total Protein 6.2 G/DL (6.4-8.2) 6.3 G/DL (6.4-8.2) Albumin 2.3 G/DL (3.4-5.0) 2.2 G/DL (3.4-5.0) Globulin 3.9 g/dL 4.1 g/dL Albumin/Globulin Ratio 0.6 (1.0-2.7) 0.5 (1.0-2.7) Urine Color Yellow Urine Appearance Cloudy Urine pH 5 (4.5-8.0) Urine Specific [place] 1.020 (1.005-1.035) Urine Protein 3+ (NEGATIVE) Urine Glucose (UA) Negative (NEGATIVE) Urine Ketones Negative (NEGATIVE) Urine Blood 1+ (NEGATIVE) Urine Nitrite Negative (NEGATIVE) Urine Bilirubin Negative (NEGATIVE) Urine Urobilinogen Normal MG/DL (0.0-1.0) Urine Leukocyte Esterase 1+ (NEGATIVE) Urine RBC 2-4 /HPF (0 - 0) Urine WBC 2-4 /HPF (0 - 0) Urine Squamous Epithelial Cells Few /LPF (NONE/OCC) Urine Bacteria Moderate /HPF (NONE) Urine Yeast Many /HPF (NONE) Random Vancomycin Level 21.3 ug/mL Test 08/11/20 03:35 White Blood Count 17.7 K/UL (4.8-10.8) Red Blood Count 2.59 M/UL (4.70-6.10) Hemoglobin 8.2 G/DL (14.2-18.0) Hematocrit 24.7 % (42.0-52.0) Mean Corpuscular Volume 95 FL (80-99) Mean Corpuscular Hemoglobin 31.7 PG (27.0-31.0) Mean Corpuscular Hemoglobin Concent 33.2 G/DL (32.0-36.0) Red Cell Distribution Width 15.3 % (11.6-14.8) Platelet Count 256 K/UL (150-450) Mean Platelet Volume 6.8 FL (6.5-10.1) Neutrophils (%) (Auto) 79.7 % (45.0-75.0) Lymphocytes (%) (Auto) 12.0 % (20.0-45.0) Monocytes (%) (Auto) 5.8 % (1.0-10.0) Eosinophils (%) (Auto) 1.2 % (0.0-3.0) Basophils (%) (Auto) 1.3 % (0.0-2.0) Sodium Level 142 MMOL/L (136-145) Potassium Level 2.9 MMOL/L (3.5-5.1) Chloride Level 106 MMOL/L (98-107) Carbon Dioxide Level 25 MMOL/L (21-32) Anion Gap 11 mmol/L (5-15) Blood Urea Nitrogen 76 mg/dL (7-18) Creatinine 1.7 MG/DL (0.55-1.30) Estimat Glomerular Filtration Rate 40.5 mL/min (>60) Glucose Level 155 MG/DL (74-106) Calcium Level 8.6 MG/DL (8.5-10.1) Phosphorus Level 2.3 MG/DL (2.5-4.9) Magnesium Level 2.0 MG/DL (1.8-2.4) Total Bilirubin 0.4 MG/DL (0.2-1.0) Aspartate Amino Transf (AST/SGOT) 39 U/L (15-37) Alanine Aminotransferase (ALT/SGPT) 111 U/L (12-78) Alkaline Phosphatase 89 U/L (46-116) Total Protein 5.9 G/DL (6.4-8.2) Albumin 2.0 G/DL (3.4-5.0) Globulin 3.9 g/dL Albumin/Globulin Ratio 0.5 (1.0-2.7) Micro Microbiology Date/Time Source Procedure Growth Status 08/10/20 11:20 Nasopharynx SARS-CoV-2 RdRp Gene Assay - Final Complete Height (Feet): 5 Height (Inches): 7.00 Weight (Pounds): 175 Objective Physical Exam General Appearance: lethargic Lines, tubes and drains: trach+++ vent++++ HEENT: normocephalic, atraumatic, mucous membranes moist Neck: normal alignment Respiratory/Chest: rhonchi - bilaterally Cardiovascular/Chest: normal peripheral pulses, regular rhythm Abdomen: soft, no mass, ++ feeding tube Extremities: no edema, no cyanosis Skin Exam: normal pigmentation, warm/dry Neurologic: unresponsiveness Karthik Mercedes MD Aug 11, 2020 06:30
[2020-08-11] MEDS: Piperacillin/Tazobactam 3.375 GM in NS 110 ML IVPB SCH ×3 (06:57→21:25)
[2020-08-11 08:00] VITALS: BP 165/99
[2020-08-11] MEDS: Renvela 800mg Pkt GT SCH (09:42)
[2020-08-11] MEDS: Heparin 5000 units/ml inj SUBQ SCH ×2 (09:44→21:25)
--- NOTE | 2020-08-11 10:19 | Diagnostic Imaging Report ---
EXAM: XR Chest, 1 View CLINICAL HISTORY: INFECT TECHNIQUE: Frontal view of the chest. COMPARISON: Chest CT scan August 10, 2020. FINDINGS/IMPRESSION: Midline tracheostomy tube. Right IJ catheter terminates in the SVC. EKG leads overlie the patient. No focal consolidation, pleural effusion, or pneumothorax. Mild atelectasis within the lower lung johnson. The heart size is prominent. Degenerative changes of the spine.
--- NOTE | 2020-08-11 11:35 | Nephrology Progress Note ---
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 per daughter #Uremia #Anemia #Pneumonia #sepsis - per discussion with daughter - HD is in line with goals of care - replete K and phos - for now hold off HD- Cr seems to be stabilizing - will remove maharkur pending revolution of renal function - monitor labs - DC bicarb drip - add sevelamer - monitor ABG - antibiotics per ID - avoid nephrotoxins - monitor UOP - monitor electrolytes time spent 65 min Subjective ROS Limited/Unobtainable: Yes Subjective Cr stable Defer HD k low repleted Objective Objective Last 24 Hour Vital Signs Date Time Temp Pulse Resp B/P (MAP) Pulse Ox O2 Delivery O2 Flow Rate FiO2 08/11/20 08:00 Mechanical Ventilator 08/11/20 08:00 98.1 83 19 165/99 (121) 100 08/11/20 08:00 73 08/11/20 08:00 30 08/11/20 07:12 75 16 30 08/11/20 06:57 87 154/90 08/11/20 04:00 98.1 90 20 135/82 (99) 99 08/11/20 04:00 Mechanical Ventilator 08/11/20 04:00 93 08/11/20 04:00 30 08/11/20 03:21 68 17 30 08/11/20 00:00 Mechanical Ventilator 08/11/20 00:00 72 08/11/20 00:00 30 08/11/20 00:00 97.9 78 20 145/87 (106) 100 08/10/20 23:02 75 16 30 08/10/20 21:43 88 129/86 08/10/20 20:00 68 08/10/20 20:00 Mechanical Ventilator 08/10/20 20:00 97.5 75 20 153/91 (111) 100 08/10/20 20:00 30 08/10/20 19:49 73 19 30 08/10/20 16:00 74 08/10/20 16:00 30 08/10/20 16:00 97.7 85 20 151/86 (107) 100 08/10/20 15:59 Mechanical Ventilator 08/10/20 13:08 98 129/80 08/10/20 13:01 74 16 30 08/10/20 12:00 82 08/10/20 11:54 30 08/10/20 11:53 97.7 98 20 129/80 (96) 100 08/10/20 11:53 Mechanical Ventilator Intake and Output 08/10/20 08/11/20 19:00 07:00 Intake Total 640 ml 657.79 ml Output Total 600 ml 500 ml Balance 40 ml 157.79 ml Intake Free Water 120 ml 100 ml IV Total 117.79 ml Tube Feeding 520 ml 440 ml Output Urine Total 600 ml 500 ml Laboratory Tests 08/10/20 12:20: Random Vancomycin Level 21.3 08/11/20 03:35: White Blood Count 17.7H, Red Blood Count 2.59L, Hemoglobin 8.2L, Hematocrit 24.7L, Mean Corpuscular Volume 95, Mean Corpuscular Hemoglobin 31.7H, Mean Corpuscular Hemoglobin Concent 33.2, Red Cell Distribution Width 15.3H, Platelet Count 256, Mean Platelet Volume 6.8, Neutrophils (%) (Auto) 79.7H, Lymphocytes (%) (Auto) 12.0L, Monocytes (%) (Auto) 5.8, Eosinophils (%) (Auto) 1.2, Basophils (%) (Auto) 1.3, Sodium Level 142, Potassium Level 2.9L, Chloride Level 106, Carbon Dioxide Level 25, Anion Gap 11, Blood Urea Nitrogen 76H, Creatinine 1.7H, Estimat Glomerular Filtration Rate 40.5, Glucose Level 155H, Calcium Level 8.6, Phosphorus Level 2.3L, Magnesium Level 2.0, Total Bilirubin 0.4, Aspartate Amino Transf (AST/SGOT) 39H, Alanine Aminotransferase (ALT/SGPT) 111H, Alkaline Phosphatase 89, Total Protein 5.9L, Albumin 2.0L, Globulin 3.9, Albumin/Globulin Ratio 0.5L 08/11/20 10:37: D-Dimer 2.23H Height (Feet): 5 Height (Inches): 7.00 Weight (Pounds): 175 Objective General Appearance: other - non interactive Cardiovascular: normal rate, regular rhythm Respiratory/Chest: no respiratory distress, other - Trach on Vent Abdomen: soft, other - Rectal tube in place Extremities: other - bedbound Neurologic: other - non interactive at baseline Skin: warm/dry Gladys Sherman M.D. Aug 11, 2020 11:35
--- NOTE | 2020-08-11 11:46 | Pulmonology Progress Note ---
Subjective ROS Limited/Unobtainable: Yes Interval Events: No new events Constitutional: Reports: fatigue, other - trach, vent ; Denies: fever HEENT: Repors: no symptoms Respiratory: Reports: no symptoms Cardiovascular: Reports: no symptoms Gastrointestinal/Abdominal: Reports: diarrhea, other - + rectal tube ; Denies: nausea, vomiting Psychiatric: Reports: other - NA Skin: Denies: rash Musculoskeletal: Denies: pain Allergies: Coded Allergies: No Known Allergies (Unverified , 08/01/20) All Systems: reviewed and negative except above Objective Last 24 Hour Vital Signs Date Time Temp Pulse Resp B/P (MAP) Pulse Ox O2 Delivery O2 Flow Rate FiO2 08/11/20 08:00 Mechanical Ventilator 08/11/20 08:00 98.1 83 19 165/99 (121) 100 08/11/20 08:00 73 08/11/20 08:00 30 08/11/20 07:12 75 16 30 08/11/20 06:57 87 154/90 08/11/20 04:00 98.1 90 20 135/82 (99) 99 08/11/20 04:00 Mechanical Ventilator 08/11/20 04:00 93 08/11/20 04:00 30 08/11/20 03:21 68 17 30 08/11/20 00:00 Mechanical Ventilator 08/11/20 00:00 72 08/11/20 00:00 30 08/11/20 00:00 97.9 78 20 145/87 (106) 100 08/10/20 23:02 75 16 30 08/10/20 21:43 88 129/86 08/10/20 20:00 68 08/10/20 20:00 Mechanical Ventilator 08/10/20 20:00 97.5 75 20 153/91 (111) 100 08/10/20 20:00 30 08/10/20 19:49 73 19 30 08/10/20 16:00 74 08/10/20 16:00 30 08/10/20 16:00 97.7 85 20 151/86 (107) 100 08/10/20 15:59 Mechanical Ventilator 08/10/20 13:08 98 129/80 08/10/20 13:01 74 16 30 08/10/20 12:00 82 08/10/20 11:54 30 08/10/20 11:53 97.7 98 20 129/80 (96) 100 08/10/20 11:53 Mechanical Ventilator Intake and Output 08/10/20 08/11/20 19:00 07:00 Intake Total 640 ml 657.79 ml Output Total 600 ml 500 ml Balance 40 ml 157.79 ml Intake Free Water 120 ml 100 ml IV Total 117.79 ml Tube Feeding 520 ml 440 ml Output Urine Total 600 ml 500 ml Objective saturating well on current vent setting; s/p G tube General Appearance: WD/WN HEENT: normocephalic, status post trach Respiratory: chest wall non-tender Cardiovascular: normal peripheral pulses, normal rate Abdomen: normal bowel sounds Microbiology Date/Time Source Procedure Growth Status 08/10/20 11:20 Nasopharynx SARS-CoV-2 RdRp Gene Assay - Final Complete 08/09/20 23:00 Urine,Clean Catch Urine Culture - Preliminary NO GROWTH AFTER 24 HOURS Resulted 08/09/20 23:00 Sputum Gram Stain - Final Resulted 08/09/20 23:00 Sputum Culture - Preliminary Gram Negative Bacillus 1 Resulted Laboratory Tests 08/10/20 12:20: Random Vancomycin Level 21.3 08/11/20 03:35: White Blood Count 17.7H, Red Blood Count 2.59L, Hemoglobin 8.2L, Hematocrit 24.7L, Mean Corpuscular Volume 95, Mean Corpuscular Hemoglobin 31.7H, Mean Corpuscular Hemoglobin Concent 33.2, Red Cell Distribution Width 15.3H, Platelet Count 256, Mean Platelet Volume 6.8, Neutrophils (%) (Auto) 79.7H, Lymphocytes (%) (Auto) 12.0L, Monocytes (%) (Auto) 5.8, Eosinophils (%) (Auto) 1.2, Basophils (%) (Auto) 1.3, Sodium Level 142, Potassium Level 2.9L, Chloride Level 106, Carbon Dioxide Level 25, Anion Gap 11, Blood Urea Nitrogen 76H, Creatinine 1.7H, Estimat Glomerular Filtration Rate 40.5, Glucose Level 155H, Calcium Level 8.6, Phosphorus Level 2.3L, Magnesium Level 2.0, Total Bilirubin 0.4, Aspartate Amino Transf (AST/SGOT) 39H, Alanine Aminotransferase (ALT/SGPT) 111H, Alkaline Phosphatase 89, Total Protein 5.9L, Albumin 2.0L, Globulin 3.9, Albumin/Globulin Ratio 0.5L 08/11/20 10:37: D-Dimer 2.23H Current Medications Medications (Trade) Dose Ordered Sig/Maegan Route PRN Reason Start Time Stop Time Status Last Admin Dose Admin Acetaminophen (Tylenol) 650 mg Q4H PRN GT For Pain 08/02/20 15:45 09/01/20 15:44 08/03/20 02:13 Acetaminophen (Tylenol) 650 mg Q4H PRN GT Temp >100.5 08/02/20 15:45 09/01/20 15:44 Barium Sulfate (Readi-Cat 2) 450 ml NOW PRN ORAL Radiology Procedure 08/10/20 12:45 08/12/20 12:44 Calcium Acetate (Phoslo) 1,334 mg TIAC GT 08/09/20 16:30 11/03/20 11:29 08/11/20 06:57 Chlorhexidine Gluconate (Deisy-Hex 2%) 1 applic BIOTEC TOPIC 08/02/20 21:00 10/31/20 20:59 08/10/20 20:31 Dextrose 1,000 ml @ 0 mls/hr Q0M IV 08/02/20 09:15 09/01/20 09:14 Heparin Sodium (Porcine) (Heparin 5000 units/ml) 5,000 units EVERY 12 HOURS SUBQ 08/02/20 21:00 09/16/20 20:59 08/11/20 09:44 Lansoprazole (Prevacid) 30 mg DAILY GT 08/10/20 09:00 09/09/20 08:59 08/11/20 09:42 Metoclopramide HCl (Reglan) 10 mg Q6H PRN IVP Nausea & Vomiting 08/05/20 14:15 09/04/20 14:14 08/07/20 04:38 Metoprolol Tartrate (Lopressor) 25 mg EVERY 8 HOURS GT 08/09/20 06:00 11/07/20 05:59 08/11/20 06:57 Piperacillin Sod/ Tazobactam Sod 3.375 gm/Sodium Chloride 110 ml @ 27.5 mls/hr EVERY 8 HOURS IVPB 08/09/20 22:00 08/14/20 21:59 08/11/20 06:57 Potassium Phosphate 250 ml @ 62.5 mls/hr Q4H IVPB 08/11/20 12:00 08/11/20 19:59 Vancomycin HCl 250 ml @ 166.667 mls/hr Q24H IVPB 08/10/20 18:00 08/15/20 17:59 08/10/20 17:38 Vancomycin HCl ([facility] pharmacy to dose) 1 ea DAILY PRN MISC Per rx protocol 08/09/20 18:30 09/08/20 18:29 Assessment/Plan Assessment/Plan 1. Chronic respiratory failure. Chronic tracheostomy 2. Metabolic acidosis. On hemodialysis 3. Renal failure. HD per renal 4. Leukocytosis. 5. Sepsis. Source unclear; C dif negative; CXR clear DISCUSSION: Agree with broad spectrum antibiotics. We will continue AC mode. Currently FiO2 30%; PEEP 5 Discontinued bicarbonate supplementation. Noted plans for HD Hemodynamically stable We will follow carefully. Stool OB positive CXR 08/11 shows mild atelectasis D dimer 2.35; lower than prior Doubt embolic phenomenon The care for this patient was discussed with my supervising physician Time spent for this case was approximately 31 minutes The patient was seen and examined at bedside and all new and available data was reviewed in the patients chart. I agree with the above findings, impression, and plan. (Patient was seen earlier today. Signature timestamp does not reflect patient encounter time) Jarek Jackson MD Aug 11, 2020 11:46 Jack Nunez MD Aug 11, 2020 15:30
[2020-08-11] MEDS: Potassium Phosphate 15mm/250ml 250 ML IVPB SCH ×3 (11:52→18:25)
[2020-08-11 12:00] VITALS: BP 171/96
--- NOTE | 2020-08-11 13:25 | Surgery Progress Note ---
Surgery Progress Note Subjective Procedure Performed right femoral temporary hemodialysis catheter insertion Additional Comments leukocytosis no bleeding cath site okay no n/v no hematoma Objective Last 24 Hour Vital Signs Date Time Temp Pulse Resp B/P (MAP) Pulse Ox O2 Delivery O2 Flow Rate FiO2 08/11/20 12:00 97.9 88 19 171/96 (121) 100 08/11/20 11:24 77 16 30 08/11/20 08:00 Mechanical Ventilator 08/11/20 08:00 98.1 83 19 165/99 (121) 100 08/11/20 08:00 73 08/11/20 08:00 30 08/11/20 07:12 75 16 30 08/11/20 06:57 87 154/90 08/11/20 04:00 98.1 90 20 135/82 (99) 99 08/11/20 04:00 Mechanical Ventilator 08/11/20 04:00 93 08/11/20 04:00 30 08/11/20 03:21 68 17 30 08/11/20 00:00 Mechanical Ventilator 08/11/20 00:00 72 08/11/20 00:00 30 08/11/20 00:00 97.9 78 20 145/87 (106) 100 08/10/20 23:02 75 16 30 08/10/20 21:43 88 129/86 08/10/20 20:00 68 08/10/20 20:00 Mechanical Ventilator 08/10/20 20:00 97.5 75 20 153/91 (111) 100 08/10/20 20:00 30 08/10/20 19:49 73 19 30 08/10/20 16:00 74 08/10/20 16:00 30 08/10/20 16:00 97.7 85 20 151/86 (107) 100 08/10/20 15:59 Mechanical Ventilator I&O Intake and Output 08/10/20 08/11/20 19:00 07:00 Intake Total 640 ml 657.79 ml Output Total 600 ml 500 ml Balance 40 ml 157.79 ml Intake Free Water 120 ml 100 ml IV Total 117.79 ml Tube Feeding 520 ml 440 ml Output Urine Total 600 ml 500 ml Dressing: dry Cardiovascular: RSR Respiratory: decreased breath sounds Abdomen: soft, non-tender, present bowel sounds, non-distended Extremities: no edema, no tenderness, no cyanosis Laboratory Tests Test 08/11/20 03:35 08/11/20 10:37 White Blood Count 17.7 K/UL (4.8-10.8) H Red Blood Count 2.59 M/UL (4.70-6.10) L Hemoglobin 8.2 G/DL (14.2-18.0) L Hematocrit 24.7 % (42.0-52.0) L Mean Corpuscular Volume 95 FL (80-99) Mean Corpuscular Hemoglobin 31.7 PG (27.0-31.0) H Mean Corpuscular Hemoglobin Concent 33.2 G/DL (32.0-36.0) Red Cell Distribution Width 15.3 % (11.6-14.8) H Platelet Count 256 K/UL (150-450) Mean Platelet Volume 6.8 FL (6.5-10.1) Neutrophils (%) (Auto) 79.7 % (45.0-75.0) H Lymphocytes (%) (Auto) 12.0 % (20.0-45.0) L Monocytes (%) (Auto) 5.8 % (1.0-10.0) Eosinophils (%) (Auto) 1.2 % (0.0-3.0) Basophils (%) (Auto) 1.3 % (0.0-2.0) Sodium Level 142 MMOL/L (136-145) Potassium Level 2.9 MMOL/L (3.5-5.1) L Chloride Level 106 MMOL/L (98-107) Carbon Dioxide Level 25 MMOL/L (21-32) Anion Gap 11 mmol/L (5-15) Blood Urea Nitrogen 76 mg/dL (7-18) H Creatinine 1.7 MG/DL (0.55-1.30) H Estimat Glomerular Filtration Rate 40.5 mL/min (>60) Glucose Level 155 MG/DL (74-106) H Calcium Level 8.6 MG/DL (8.5-10.1) Phosphorus Level 2.3 MG/DL (2.5-4.9) L Magnesium Level 2.0 MG/DL (1.8-2.4) Total Bilirubin 0.4 MG/DL (0.2-1.0) Aspartate Amino Transf (AST/SGOT) 39 U/L (15-37) H Alanine Aminotransferase (ALT/SGPT) 111 U/L (12-78) H Alkaline Phosphatase 89 U/L (46-116) Total Protein 5.9 G/DL (6.4-8.2) L Albumin 2.0 G/DL (3.4-5.0) L Globulin 3.9 g/dL Albumin/Globulin Ratio 0.5 (1.0-2.7) L D-Dimer 2.23 mg/L FEU (0.00-0.49) H Plan Problems: (1) Respiratory distress (2) Renal failure Assessment & Plan: plan HD line soon temp hd consent from daughter (3) Metabolic acidosis (4) NSTEMI (non-ST elevated myocardial infarction) (5) Sepsis Assessment & Plan: okay for tf iv fluids vent via trach weaning vent g tube okay decubitus eval done and local care provided labs noted acidosis plan HD cont abx as per ID will follow with recs thank you DAILY ESTIMATED NEEDS: Needs based on Critical care, wound, AUNDREA/ 62.7kg 22-28 kcals/kg 6246-6327 total kcals 0.8-1.25 (increase w/ renal fxn improvement) g protein/kg 50-78 g total protein 20-25 mL/kg 6332-1056 total fluid mLs NUTRITION DIAGNOSIS: Swallowing difficulty R/T respiratory failure as evidenced by trach/vent dep, PEG dep. CURRENT TF: NPO ENTERAL NUTRITION RECOMMENDATIONS: Nepro @ 35ml/hr x 24 hrs to provide 840ml, 1512kcal, 68g prot, 611ml free water * As medically appropriate, initiate Nepro, rec goal rate of 35ml/hr x 24 hrs * HOB over 30 degrees/ water flush per MD ADDITIONAL RECOMMENDATIONS: * Per SNF: HT=68" and CA=[id number] -> daily calibrated bedscale wt * Monitor renal fxn and lytes, ability to increase est prot needs * NISS w/ TF -> h/o DM * Probiotics for diarrhea * Wound healing: Add Nephrovite x 1, ZnSO4 220mg QD x 10 days Kenji BID w/ TF Rohit Brand Aug 11, 2020 13:25
[2020-08-11] MEDS ORDERED: Sterile Water Irrig 1000ml IRRIG ONE (13:38)
[2020-08-11] MEDS ORDERED: NS 275ml ONE ×2 (13:38→16:02)
[2020-08-11] MEDS ORDERED: Tubing Blood Filter IV ONE (13:38)
[2020-08-11] MEDS ORDERED: Tubing IV Secondary IV ONE (13:38)
--- NOTE | 2020-08-11 14:40 | Cardiac Electrophysiology PN ---
Assessment/Plan Assessment/Plan 1. Troponin elevation. Levels are coming down at 0.8 to 0.5. Due to renal failure with BUN of 343, creatinine of 4.1 as well as sepsis with white count of 22,000. His EKG also shows sinus rhythm with inferolateral ischemia. On Lopressor 12.5 bid. 2. Shortness of breath with respiratory failure, status post tracheostomy, on the ventilator with 30% FiO2. 3. Dysphagia, status post PEG placement. 4. Acute renal failure with BUN of 343, creatinine of 4.1. S/P Right IJ Nicholas catheter 08/07. Had first HD on 08/03. No more dialysis for now 5. Diabetes. 6. History of left thalamic hemorrhage. Subjective Subjective S/P Right IJ Nicholas catheter placement. On the vent with 30% Fio2 via trach. HR 100s Femoral Nicholas to be removed . Objective Last 24 Hour Vital Signs Date Time Temp Pulse Resp B/P (MAP) Pulse Ox O2 Delivery O2 Flow Rate FiO2 08/11/20 14:38 72 19 30 08/11/20 14:06 171/96 08/11/20 14:06 88 171/96 08/11/20 12:00 97.9 88 19 171/96 (121) 100 08/11/20 11:24 77 16 30 08/11/20 08:00 Mechanical Ventilator 08/11/20 08:00 98.1 83 19 165/99 (121) 100 08/11/20 08:00 73 08/11/20 08:00 30 08/11/20 07:12 75 16 30 08/11/20 06:57 87 154/90 08/11/20 04:00 98.1 90 20 135/82 (99) 99 08/11/20 04:00 Mechanical Ventilator 08/11/20 04:00 93 08/11/20 04:00 30 08/11/20 03:21 68 17 30 08/11/20 00:00 Mechanical Ventilator 08/11/20 00:00 72 08/11/20 00:00 30 08/11/20 00:00 97.9 78 20 145/87 (106) 100 08/10/20 23:02 75 16 30 08/10/20 21:43 88 129/86 08/10/20 20:00 68 08/10/20 20:00 Mechanical Ventilator 08/10/20 20:00 97.5 75 20 153/91 (111) 100 08/10/20 20:00 30 08/10/20 19:49 73 19 30 08/10/20 16:00 74 08/10/20 16:00 30 08/10/20 16:00 97.7 85 20 151/86 (107) 100 08/10/20 15:59 Mechanical Ventilator Intake and Output 08/10/20 08/11/20 19:00 07:00 Intake Total 640 ml 657.79 ml Output Total 600 ml 500 ml Balance 40 ml 157.79 ml Intake Free Water 120 ml 100 ml IV Total 117.79 ml Tube Feeding 520 ml 440 ml Output Urine Total 600 ml 500 ml Laboratory Tests Test 08/11/20 03:35 08/11/20 10:37 White Blood Count 17.7 K/UL (4.8-10.8) H Red Blood Count 2.59 M/UL (4.70-6.10) L Hemoglobin 8.2 G/DL (14.2-18.0) L Hematocrit 24.7 % (42.0-52.0) L Mean Corpuscular Volume 95 FL (80-99) Mean Corpuscular Hemoglobin 31.7 PG (27.0-31.0) H Mean Corpuscular Hemoglobin Concent 33.2 G/DL (32.0-36.0) Red Cell Distribution Width 15.3 % (11.6-14.8) H Platelet Count 256 K/UL (150-450) Mean Platelet Volume 6.8 FL (6.5-10.1) Neutrophils (%) (Auto) 79.7 % (45.0-75.0) H Lymphocytes (%) (Auto) 12.0 % (20.0-45.0) L Monocytes (%) (Auto) 5.8 % (1.0-10.0) Eosinophils (%) (Auto) 1.2 % (0.0-3.0) Basophils (%) (Auto) 1.3 % (0.0-2.0) Sodium Level 142 MMOL/L (136-145) Potassium Level 2.9 MMOL/L (3.5-5.1) L Chloride Level 106 MMOL/L (98-107) Carbon Dioxide Level 25 MMOL/L (21-32) Anion Gap 11 mmol/L (5-15) Blood Urea Nitrogen 76 mg/dL (7-18) H Creatinine 1.7 MG/DL (0.55-1.30) H Estimat Glomerular Filtration Rate 40.5 mL/min (>60) Glucose Level 155 MG/DL (74-106) H Calcium Level 8.6 MG/DL (8.5-10.1) Phosphorus Level 2.3 MG/DL (2.5-4.9) L Magnesium Level 2.0 MG/DL (1.8-2.4) Total Bilirubin 0.4 MG/DL (0.2-1.0) Aspartate Amino Transf (AST/SGOT) 39 U/L (15-37) H Alanine Aminotransferase (ALT/SGPT) 111 U/L (12-78) H Alkaline Phosphatase 89 U/L (46-116) Total Protein 5.9 G/DL (6.4-8.2) L Albumin 2.0 G/DL (3.4-5.0) L Globulin 3.9 g/dL Albumin/Globulin Ratio 0.5 (1.0-2.7) L D-Dimer 2.23 mg/L FEU (0.00-0.49) H Microbiology Date/Time Source Procedure Growth Status 08/10/20 11:20 Nasopharynx SARS-CoV-2 RdRp Gene Assay - Final Complete 08/09/20 23:00 Urine,Clean Catch Urine Culture - Preliminary NO GROWTH AFTER 24 HOURS Resulted 08/09/20 23:00 Sputum Gram Stain - Final Resulted 08/09/20 23:00 Sputum Culture - Preliminary Gram Negative Bacillus 1 Resulted Objective HEAD AND NECK: Status post tracheostomy with no JVD. LUNGS: Coarse rhonchi. CARDIOVASCULAR: Regular S1 and S2 with no gallop. ABDOMEN: Status post G-tube. EXTREMITIES: No pitting edema. Gregorio Mari MD Aug 11, 2020 14:40
[2020-08-11 16:00] VITALS: BP 172/94
--- NOTE | 2020-08-11 17:48 | Infectious Diseases Prog Note ---
Assessment/Plan Assessment/Plan ASSESSMENT AND PLAN: 1. sepsis, fevers and leukocytosis ? gram neg pneumonia/tracheobronchitis CT without abscess - zosyn and vancomycin - f/u on cultures, sputum culture - d/w Dr. Silva - monitor labs and chest x-ray 2. Trach, vent. 3. Dysphagia, on G-tube. 4. 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 5. Diabetes. 6. Hypertension. 7. Blood sugar and blood pressure treatment per primary care team. 8. Acute renal failure. 9. Anemia. 10. Respiratory failure. 11. GERD. 12. Vent dependency. 13. No allergies. 14. Social history is negative. 15. Family history noncontributory. 16. MAR was noted. 17. Case was discussed with RN. Subjective Constitutional: Reports: fatigue, other - trach and vent ; Denies: fever HEENT: Reports: congestion Respiratory: Reports: shortness of breath Cardiovascular: Reports: other - no pressors ; Denies: chest pain Gastrointestinal/Abdominal: Reports: diarrhea, other - + rectal tube ; Denies: nausea, vomiting Genitourinary: Reports: other - + mota Neurologic: Reports: numbness Psychiatric: Reports: other - NA Skin: Denies: rash Hematologic: Denies: bleeding Musculoskeletal: Reports: other - NA Allergies: Coded Allergies: No Known Allergies (Unverified , 08/01/20) Objective Last 24 Hour Vital Signs Date Time Temp Pulse Resp B/P (MAP) Pulse Ox O2 Delivery O2 Flow Rate FiO2 08/11/20 16:00 91 08/11/20 16:00 30 08/11/20 16:00 98.1 96 19 172/94 (120) 97 08/11/20 16:00 Mechanical Ventilator 08/11/20 14:38 72 19 30 08/11/20 14:06 171/96 08/11/20 14:06 88 171/96 08/11/20 12:00 88 08/11/20 12:00 97.9 88 19 171/96 (121) 100 08/11/20 12:00 Mechanical Ventilator 08/11/20 12:00 30 08/11/20 11:24 77 16 30 08/11/20 08:00 Mechanical Ventilator 08/11/20 08:00 98.1 83 19 165/99 (121) 100 08/11/20 08:00 73 1/1/21 08:00 30 08/11/20 07:12 75 16 30 08/11/20 06:57 87 154/90 08/11/20 04:00 98.1 90 20 135/82 (99) 99 08/11/20 04:00 Mechanical Ventilator 08/11/20 04:00 93 08/11/20 04:00 30 08/11/20 03:21 68 17 30 08/11/20 00:00 Mechanical Ventilator 08/11/20 00:00 72 08/11/20 00:00 30 08/11/20 00:00 97.9 78 20 145/87 (106) 100 08/10/20 23:02 75 16 30 08/10/20 21:43 88 129/86 08/10/20 20:00 68 08/10/20 20:00 Mechanical Ventilator 08/10/20 20:00 97.5 75 20 153/91 (111) 100 08/10/20 20:00 30 08/10/20 19:49 73 19 30 Height (Feet): 5 Height (Inches): 7.00 Weight (Pounds): 175 General Appearance: no acute distress HEENT: normocephalic, atraumatic, anicteric, no JVD, status post trach Respiratory/Chest: crackles/rales, rhonchi - bilaterally Cardiovascular: normal rate, regular rhythm, no gallop/murmur Abdomen: normal bowel sounds, soft, non tender, no organomegaly, non distended Genitourinary: other - no mota Extremities: no cyanosis Skin: no rash Neurologic/Psychiatric: other - weak and lethargic Lymphatic: no neck adenopathy Musculoskeletal: no effusion Chest x-ray - 08/03/20 - Procedure: XRAY Chest 1v Indication: Shortness of breath Technique: One view of the chest Comparison: 08/01/2020 Findings: Lungs and pleural spaces are clear. Heart size is normal. Tracheostomy again demonstrated. Findings are unchanged Impression: No acute process Chest x-ray - 08/09/20 - Procedure: XRAY Chest 1v Indication: Shortness of breath Technique: One view of the chest Comparison: 08/07/2020 Findings: Jugular temporary dialysis catheter is again demonstrated. There is some hazy very focal infiltrate in the left infrahilar region. The remainder of the lungs and pleural spaces remain clear. Impression: Very focal left infrahilar infiltrate, new since prior study, may indicate early pneumonia CT chest/abdomen and pelvis: IMPRESSION: No definite acute abnormality Lungs demonstrate posterior dependent atelectatic changes and a left upper lobe calcified granuloma Cardiomegaly Tracheostomy, temporary dialysis catheter, rectal tube, gastrostomy noted Moderate retained stool, could indicate constipation Empty bladder with a Mota catheter.. Bladder wall thickening. This could be an artifact of lack of distention, but the possibility of cystitis should also be considered. Correlate with clinical and laboratory findings Mild prostatomegaly Slight edema of the bilateral hip and subcutaneous fat Incidental finding of bilateral renal cysts Chest x-ray - 08/11/20: COMPARISON: Chest CT scan August 10, 2020. FINDINGS/IMPRESSION: Midline tracheostomy tube. Right IJ catheter terminates in the SVC. EKG leads overlie the patient. No focal consolidation, pleural effusion, or pneumothorax. Mild atelectasis within the lower lung johnson. The heart size is prominent. Degenerative changes of the spine. Microbiology Date/Time Source Procedure Growth Status 08/10/20 11:20 Nasopharynx SARS-CoV-2 RdRp Gene Assay - Final Complete 08/09/20 23:00 Urine,Clean Catch Urine Culture - Preliminary NO GROWTH AFTER 24 HOURS Resulted 08/02/20 05:00 Rectum VRE Culture - Final NO VANCOMYCIN RESISTANT ENTEROCOCCUS ... Complete 08/02/20 05:00 Stool Clostridium difficile Toxin Assay - Final Complete 08/01/20 13:10 Blood Blood Culture - Final NO GROWTH AFTER 5 DAYS Complete Microbiology Date/Time Source Procedure Growth Status 08/10/20 11:20 Nasopharynx SARS-CoV-2 RdRp Gene Assay - Final Complete 08/09/20 23:00 Urine,Clean Catch Urine Culture - Preliminary NO GROWTH AFTER 24 HOURS Resulted 08/09/20 23:00 Sputum Gram Stain - Final Resulted 08/09/20 23:00 Sputum Culture - Preliminary Gram Negative Bacillus 1 Resulted Laboratory Tests Test 08/11/20 03:35 08/11/20 10:37 White Blood Count 17.7 K/UL (4.8-10.8) H Red Blood Count 2.59 M/UL (4.70-6.10) L Hemoglobin 8.2 G/DL (14.2-18.0) L Hematocrit 24.7 % (42.0-52.0) L Mean Corpuscular Volume 95 FL (80-99) Mean Corpuscular Hemoglobin 31.7 PG (27.0-31.0) H Mean Corpuscular Hemoglobin Concent 33.2 G/DL (32.0-36.0) Red Cell Distribution Width 15.3 % (11.6-14.8) H Platelet Count 256 K/UL (150-450) Mean Platelet Volume 6.8 FL (6.5-10.1) Neutrophils (%) (Auto) 79.7 % (45.0-75.0) H Lymphocytes (%) (Auto) 12.0 % (20.0-45.0) L Monocytes (%) (Auto) 5.8 % (1.0-10.0) Eosinophils (%) (Auto) 1.2 % (0.0-3.0) Basophils (%) (Auto) 1.3 % (0.0-2.0) Sodium Level 142 MMOL/L (136-145) Potassium Level 2.9 MMOL/L (3.5-5.1) L Chloride Level 106 MMOL/L (98-107) Carbon Dioxide Level 25 MMOL/L (21-32) Anion Gap 11 mmol/L (5-15) Blood Urea Nitrogen 76 mg/dL (7-18) H Creatinine 1.7 MG/DL (0.55-1.30) H Estimat Glomerular Filtration Rate 40.5 mL/min (>60) Glucose Level 155 MG/DL (74-106) H Calcium Level 8.6 MG/DL (8.5-10.1) Phosphorus Level 2.3 MG/DL (2.5-4.9) L Magnesium Level 2.0 MG/DL (1.8-2.4) Total Bilirubin 0.4 MG/DL (0.2-1.0) Aspartate Amino Transf (AST/SGOT) 39 U/L (15-37) H Alanine Aminotransferase (ALT/SGPT) 111 U/L (12-78) H Alkaline Phosphatase 89 U/L (46-116) Total Protein 5.9 G/DL (6.4-8.2) L Albumin 2.0 G/DL (3.4-5.0) L Globulin 3.9 g/dL Albumin/Globulin Ratio 0.5 (1.0-2.7) L D-Dimer 2.23 mg/L FEU (0.00-0.49) H Current Medications Medications (Trade) Dose Ordered Sig/Maegan Route PRN Reason Start Time Stop Time Status Last Admin Dose Admin Acetaminophen (Tylenol) 650 mg Q4H PRN GT For Pain 08/02/20 15:45 09/01/20 15:44 08/03/20 02:13 Acetaminophen (Tylenol) 650 mg Q4H PRN GT Temp >100.5 08/02/20 15:45 09/01/20 15:44 Barium Sulfate (Readi-Cat 2) 450 ml NOW PRN ORAL Radiology Procedure 08/10/20 12:45 08/12/20 12:44 Calcium Acetate (Phoslo) 1,334 mg TIAC GT 08/09/20 16:30 11/03/20 11:29 08/11/20 16:28 Chlorhexidine Gluconate (Deisy-Hex 2%) 1 applic BIOTEC TOPIC 08/02/20 21:00 10/31/20 20:59 08/10/20 20:31 Dextrose 1,000 ml @ 0 mls/hr Q0M IV 08/02/20 09:15 09/01/20 09:14 Heparin Sodium (Porcine) (Heparin 5000 units/ml) 5,000 units EVERY 12 HOURS SUBQ 08/02/20 21:00 09/16/20 20:59 08/11/20 09:44 Hydralazine HCl (Apresoline) 10 mg Q4H PRN IV sbp >160 08/11/20 13:45 11/09/20 13:44 08/11/20 14:06 Lansoprazole (Prevacid) 30 mg DAILY GT 08/10/20 09:00 09/09/20 08:59 08/11/20 09:42 Metoclopramide HCl (Reglan) 10 mg Q6H PRN IVP Nausea & Vomiting 08/05/20 14:15 09/04/20 14:14 08/07/20 04:38 Metoprolol Tartrate (Lopressor) 25 mg EVERY 8 HOURS GT 08/09/20 06:00 11/07/20 05:59 08/11/20 14:06 Piperacillin Sod/ Tazobactam Sod 3.375 gm/Sodium Chloride 110 ml @ 27.5 mls/hr EVERY 8 HOURS IVPB 08/09/20 22:00 08/14/20 21:59 08/11/20 14:06 Potassium Phosphate 250 ml @ 62.5 mls/hr Q4H IVPB 08/11/20 12:00 08/11/20 19:59 08/11/20 11:52 Vancomycin HCl ([facility] pharmacy to dose) 1 ea DAILY PRN MISC Per rx protocol 08/09/20 18:30 09/08/20 18:29 Calderon Vazquez MD Aug 11, 2020 17:48
--- NOTE | 2020-08-11 18:38 | General Progress Note ---
Subjective Date patient seen: Aug 11, 2020 Allergies: Coded Allergies: No Known Allergies (Unverified , 08/01/20) Subjective No acute events overnight per nursing. Patient with downtrending WBC. Source still unclear. Stool OB positive. GI consulted. No active bleeding. Cr overall stable. ROS unable to obtain due to ALOC Objective Last 24 Hour Vital Signs Date Time Temp Pulse Resp B/P (MAP) Pulse Ox O2 Delivery O2 Flow Rate FiO2 08/11/20 16:00 91 08/11/20 16:00 30 08/11/20 16:00 98.1 96 19 172/94 (120) 97 08/11/20 16:00 Mechanical Ventilator 08/11/20 14:38 72 19 30 08/11/20 14:06 171/96 08/11/20 14:06 88 171/96 08/11/20 12:00 88 08/11/20 12:00 97.9 88 19 171/96 (121) 100 08/11/20 12:00 Mechanical Ventilator 08/11/20 12:00 30 08/11/20 11:24 77 16 30 08/11/20 08:00 Mechanical Ventilator 08/11/20 08:00 98.1 83 19 165/99 (121) 100 08/11/20 08:00 73 08/11/20 08:00 30 08/11/20 07:12 75 16 30 08/11/20 06:57 87 154/90 08/11/20 04:00 98.1 90 20 135/82 (99) 99 08/11/20 04:00 Mechanical Ventilator 08/11/20 04:00 93 08/11/20 04:00 30 08/11/20 03:21 68 17 30 08/11/20 00:00 Mechanical Ventilator 08/11/20 00:00 72 08/11/20 00:00 30 08/11/20 00:00 97.9 78 20 145/87 (106) 100 08/10/20 23:02 75 16 30 08/10/20 21:43 88 129/86 08/10/20 20:00 68 08/10/20 20:00 Mechanical Ventilator 08/10/20 20:00 97.5 75 20 153/91 (111) 100 08/10/20 20:00 30 08/10/20 19:49 73 19 30 Intake and Output 08/10/20 08/11/20 19:00 07:00 Intake Total 640 ml 697.79 ml Output Total 600 ml 500 ml Balance 40 ml 197.79 ml Intake Free Water 120 ml 100 ml IV Total 117.79 ml Tube Feeding 520 ml 480 ml Output Urine Total 600 ml 500 ml Laboratory Tests 08/11/20 03:35: White Blood Count 17.7H, Red Blood Count 2.59L, Hemoglobin 8.2L, Hematocrit 24.7L, Mean Corpuscular Volume 95, Mean Corpuscular Hemoglobin 31.7H, Mean Co rpuscular Hemoglobin Concent 33.2, Red Cell Distribution Width 15.3H, Platelet Count 256, Mean Platelet Volume 6.8, Neutrophils (%) (Auto) 79.7H, Lymphocytes (%) (Auto) 12.0L, Monocytes (%) (Auto) 5.8, Eosinophils (%) (Auto) 1.2, Basophils (%) (Auto) 1.3, Sodium Level 142, Potassium Level 2.9L, Chloride Level 106, Carbon Dioxide Level 25, Anion Gap 11, Blood Urea Nitrogen 76H, Creatinine 1.7H, Estimat Glomerular Filtration Rate 40.5, Glucose Level 155H, Calcium Level 8.6, Phosphorus Level 2.3L, Magnesium Level 2.0, Total Bilirubin 0.4, Aspartate Amino Transf (AST/SGOT) 39H, Alanine Aminotransferase (ALT/SGPT) 111H, Alkaline Phosphatase 89, Total Protein 5.9L, Albumin 2.0L, Globulin 3.9, Albumin/Globulin Ratio 0.5L 08/11/20 10:37: D-Dimer 2.23H Height (Feet): 5 Height (Inches): 7.00 Weight (Pounds): 175 Objective General: Chronic trach/vent dependent male. Alert, not oriented HEENT: Normocephalic cephalic atraumatic, pupils equal round reactive to light and accommodation, nares patent and no symmetrical, no tonsillar exudates, mucous membranes moist + trach in place CV: Regular rate regular rhythm, no murmurs, rubs, or gallops Pulm: Lungs clear to auscultation bilaterally. No wheezes, rhonchi, or rales GI: Soft, nontender, nondistended, bowel sounds present Neuro: CN 2-12 intact bilaterally, no focal signs. Ext: No lower extremity edema bilaterally + some UE and LE swelling bilaterally tace to 1+ Skin: no rashes lesions or ulcers Msk: Joints symmetrical in upper extremity and lower extremity bilaterally, no joint swelling. Lymph: No lymphadenopathy in upper extremity and lower extremity Assessment/Plan Assessment/Plan: #Acute on Chronic Resp Failure/Trach and Vent Dependent > Possible pneumoni on recent CXR- reviewed #Sepsis- Unclear Source, Rule out VAP #leukocytosis - worsening #elevated D-dimer > Afebrile. ? UTI - Appreciate ID recommendations: [email or web address] - Appreciate Pulm recommendations: Dr. Lee - ABX per ID - Vanc per pharm (08/09 - ) - Zosyn (08/09 - ) - CT chest, abd, pelvis non contrast per ID: Reviewed. No acute process. No pneumonia. - Check Venous duplex UE and LE bilaterally: Negative - Consider VQ scan although vent setting stable- defer to pulm -> Repeat D-dimer -> Downtrending. Defer pulmonary imaging to pulm. - repeat COVID - Cultures thus far negative #Acute Renal Failure requiring HD #Associated AGMA #hypokalemia- replete PRN - Appreciate Nephro-Pirouz - Renal function is improving, can likely d/c HD -Monitor urine output -Avoid Nephrotoxic Agents -Phosphlo/Renvela #Hypertension - Metorpolol - Hydralazine PRN - Appreciate cardiology consult - Appreciate nephrology consult #NSTEMI-Demand Ischemia -Appreciate Dr. Mari- Troponins Trended -Stable - no acute interventions #POsitive Stool OB > no active bleeding - GI consult: Dr. 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 Prescribe RAGINI/ARB upon discharge for patients with left ventricular systolic dysfunction. If not, the reason is clearly documented in the medical chart [] Measure #8 (CHF): All ages. Prescribe a beta herbie upon discharge for patients with left ventricular systolic dysfunction. If not, the reason is clearly documented in the medical chart. [] Measure #47: Advance care plan or surrogate decision maker documented in the medical record. [x] Measure #130 The provider has documented, updated, or reviewed the patients current medication list and has documented it in the patients note. [x] Measure #374 (All): Send report to referring provider. [] Measure #407(Sepsis due to MSSA bacteremia): Age 18+ Patient treated with a beta-lactam antibiotic (Nafcillin, Oxacillin or Cefazolin) as definitive therapy. MEDICAL COMPLEXITYHigh complexity medical decision making (need 2/3 categories)Problem - need 4 points [x]Acute/new problem with new plan for workup (4 points, 1 max) [] Acute/new problem without additional workup (3 points, 1 max) [x] Unstable chronic problem actively being managed (2 point each, 2 max) [x] Stable chronic problem actively being managed (1 point each, 2 max) [] Self-limited/transient process (constipation, muscle ache, etc) (1 point each, 2 max) Data - need 4 points [x] Reviewed labs/imaging studies (1 points, 2 max) [x] Independent review of imaging (EKG, xrays, etc) (2 points, 2 max) [x] Discussed case with consult/other MD/RN (2 points, 2 max) High Risk - qualify if have one of the following: [x] Severe exacerbation of acute problem, acute mental status change, IV narcotics, monitoring drug levels (vancomycin, INR, tacrolimus etc) I spent 38 minutes on this patient's case, and 21 mins was dedicated to counseling and/or care coordination. Discussed with ID, GI, consultants, RN Time of note may not reflect time of encounter Fredrick Silva D.O. Aug 11, 2020 18:38
[2020-08-11 20:00] VITALS: BP 155/85
--- NOTE | 2020-08-11 20:16 | Neurology Progress Note ---
Interim History Interim History ROS Limited/Unobtainable: Yes Interim History remains lethargic no new deficits Objective Physical Exam Last Vital Signs Date Time Temp Pulse Resp B/P (MAP) Pulse Ox O2 Delivery O2 Flow Rate FiO2 08/11/20 18:45 100 18 30 08/11/20 16:00 98.1 172/94 (120) 97 08/11/20 16:00 Mechanical Ventilator Laboratory Tests Test 08/11/20 03:35 08/11/20 10:37 08/11/20 18:45 White Blood Count 17.7 K/UL (4.8-10.8) H Red Blood Count 2.59 M/UL (4.70-6.10) L Hemoglobin 8.2 G/DL (14.2-18.0) L Hematocrit 24.7 % (42.0-52.0) L Mean Corpuscular Volume 95 FL (80-99) Mean Corpuscular Hemoglobin 31.7 PG (27.0-31.0) H Mean Corpuscular Hemoglobin Concent 33.2 G/DL (32.0-36.0) Red Cell Distribution Width 15.3 % (11.6-14.8) H Platelet Count 256 K/UL (150-450) Mean Platelet Volume 6.8 FL (6.5-10.1) Neutrophils (%) (Auto) 79.7 % (45.0-75.0) H Lymphocytes (%) (Auto) 12.0 % (20.0-45.0) L Monocytes (%) (Auto) 5.8 % (1.0-10.0) Eosinophils (%) (Auto) 1.2 % (0.0-3.0) Basophils (%) (Auto) 1.3 % (0.0-2.0) Sodium Level 142 MMOL/L (136-145) Potassium Level 2.9 MMOL/L (3.5-5.1) L Chloride Level 106 MMOL/L (98-107) Carbon Dioxide Level 25 MMOL/L (21-32) Anion Gap 11 mmol/L (5-15) Blood Urea Nitrogen 76 mg/dL (7-18) H Creatinine 1.7 MG/DL (0.55-1.30) H Estimat Glomerular Filtration Rate 40.5 mL/min (>60) Glucose Level 155 MG/DL (74-106) H Calcium Level 8.6 MG/DL (8.5-10.1) Phosphorus Level 2.3 MG/DL (2.5-4.9) L Magnesium Level 2.0 MG/DL (1.8-2.4) Total Bilirubin 0.4 MG/DL (0.2-1.0) Aspartate Amino Transf (AST/SGOT) 39 U/L (15-37) H Alanine Aminotransferase (ALT/SGPT) 111 U/L (12-78) H Alkaline Phosphatase 89 U/L (46-116) Total Protein 5.9 G/DL (6.4-8.2) L Albumin 2.0 G/DL (3.4-5.0) L Globulin 3.9 g/dL Albumin/Globulin Ratio 0.5 (1.0-2.7) L D-Dimer 2.23 mg/L FEU (0.00-0.49) H Random Vancomycin Level 29.1 ug/mL Neurologic Exam Objective trach tachy grimaces to pain lethargic Impression/Recommendations Problems: (1) Respiratory distress (2) Renal failure (3) Metabolic acidosis (4) NSTEMI (non-ST elevated myocardial infarction) (5) Sepsis Diagnostic Impression Encephalopathy, likely metabolic sepsis hx of left thalamic hemorrhage likely from htn icu level map > 65 monitor mental status cont atb fu cultures ok for heparin SC given ich is chronic Pedro Hale MD Aug 11, 2020 20:16
[2020-08-11] MEDS: Dyna-Hex 2% Top Sol 2oz TOPIC SCH (21:24)
[2020-08-12] VITALS: BP 157/98
[2020-08-12 04:00] VITALS: BP 160/90
[2020-08-12 06:30] LABS: BASOPHILS % (AUTO) 0.8 % (0.0-2.0); HEMATOCRIT 26.3 % (42.0-52.0); HEMOGLOBIN 8.5 G/DL (14.2-18.0); LYMPHOCYTES % (AUTO) 9.2 % (20.0-45.0); MEAN CORPUSCULAR VOLUME 97 FL (80-99); MONOCYTES % (AUTO) 5.5 % (1.0-10.0); NEUTROPHILS % (AUTO) 84.5 % (45.0-75.0); PLATELET COUNT 266 K/UL (150-450); RED BLOOD COUNT 2.72 M/UL (4.70-6.10); RED CELL DISTRIBUTION WIDTH 15.5 % (11.6-14.8); WHITE BLOOD COUNT 16.8 K/UL (4.8-10.8)
[2020-08-12 06:35] LABS: ALBUMIN 2.1 G/DL (3.4-5.0); ALBUMIN/GLOBULIN RATIO 0.5 (1.0-2.7); BILIRUBIN,TOTAL 0.5 MG/DL (0.2-1.0); CALCIUM 9.2 MG/DL (8.5-10.1); CREATININE 1.6 MG/DL (0.55-1.30); POTASSIUM 3.7 MMOL/L (3.5-5.1)
[2020-08-12] MEDS: Piperacillin/Tazobactam 3.375 GM in NS 110 ML IVPB SCH ×3 (06:51→21:22)
[2020-08-12 08:00] VITALS: BP 159/93
--- NOTE | 2020-08-12 08:31 | Nephrology Progress Note ---
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 per daughter #Uremia #Anemia #Pneumonia #sepsis - per discussion with daughter - HD is in line with goals of care - lasix 60 IV today - replete K and phos - for now hold off HD- Cr seems to be stabilizing - will remove maharkur pending revolution of renal function - monitor labs - DC bicarb drip - add sevelamer - monitor ABG - antibiotics per ID - avoid nephrotoxins - monitor UOP - monitor electrolytes time spent 65 min Subjective ROS Limited/Unobtainable: Yes Subjective Cr stable Defer HD k low repleted Objective Objective Last 24 Hour Vital Signs Date Time Temp Pulse Resp B/P (MAP) Pulse Ox O2 Delivery O2 Flow Rate FiO2 08/12/20 06:51 101 160/90 08/12/20 04:00 Mechanical Ventilator 08/12/20 04:00 101 08/12/20 04:00 97.1 92 18 160/90 (113) 100 08/12/20 04:00 30 08/12/20 00:06 Mechanical Ventilator 08/12/20 00:00 97.8 85 16 157/98 (117) 99 08/12/20 00:00 30 08/11/20 23:30 94 23 30 08/11/20 21:24 97 155/85 08/11/20 20:00 98.2 97 16 155/85 (108) 99 08/11/20 20:00 97 08/11/20 20:00 Mechanical Ventilator 08/11/20 18:45 100 18 30 08/11/20 16:00 91 08/11/20 16:00 30 08/11/20 16:00 98.1 96 19 172/94 (120) 97 08/11/20 16:00 Mechanical Ventilator 08/11/20 14:38 72 19 30 08/11/20 14:06 171/96 08/11/20 14:06 88 171/96 08/11/20 12:00 88 08/11/20 12:00 97.9 88 19 171/96 (121) 100 08/11/20 12:00 Mechanical Ventilator 08/11/20 12:00 30 08/11/20 11:24 77 16 30 Intake and Output 08/11/20 08/12/20 19:00 07:00 Intake Total 440 ml Output Total 650 ml Balance -210 ml Tube Feeding 440 ml Output Urine Total 650 ml Laboratory Tests 08/11/20 10:37: D-Dimer 2.23H 08/11/20 18:45: Random Vancomycin Level 29.1 08/12/20 00:33: POC Whole Blood Glucose 128H 08/12/20 05:40: White Blood Count 16.8H, Red Blood Count 2.72L, Hemoglobin 8.5L, Hematocrit 26.3L, Mean Corpuscular Volume 97, Mean Corpuscular Hemoglobin 31.3H, Mean Corpuscular Hemoglobin Concent 32.4, Red Cell Distribution Width 15.5H, Platelet Count 266, Mean Platelet Volume 6.1L, Neutrophils (%) (Auto) 84.5H, Lymphocytes (%) (Auto) 9.2L, Monocytes (%) (Auto) 5.5, Eosinophils (%) (Auto) 0.0, Basophils (%) (Auto) 0.8, Sodium Level 143, Potassium Level 3.7, Chloride Level 109H, Carbon Dioxide Level 24, Anion Gap 10, Blood Urea Nitrogen 65H, Creatinine 1.6H, Estimat Glomerular Filtration Rate 43.5, Glucose Level 128H, Calcium Level 9.2, Phosphorus Level 4.0, Magnesium Level 2.1, Total Bilirubin 0.5, Aspartate Amino Transf (AST/SGOT) 42H, Alanine Aminotransferase (ALT/SGPT) 100H, Alkaline Phos phatase 99, Total Protein 6.5, Albumin 2.1L, Globulin 4.4, Albumin/Globulin Ratio 0.5L 08/12/20 06:10: POC Whole Blood Glucose 118H Height (Feet): 5 Height (Inches): 7.00 Weight (Pounds): 175 Objective General Appearance: other - non interactive Cardiovascular: normal rate, regular rhythm Respiratory/Chest: no respiratory distress, other - Trach on Vent Abdomen: soft, other - Rectal tube in place Extremities: other - bedbound Neurologic: other - non interactive at baseline Skin: warm/dry Gladys Sherman M.D. Aug 12, 2020 08:31
[2020-08-12] MEDS: Heparin 5000 units/ml inj SUBQ SCH ×2 (09:22→21:22)
[2020-08-12] MEDS ORDERED: NS 275ml ONE (09:51)
[2020-08-12] MEDS ORDERED: Tubing IV Secondary IV ONE (09:51)
--- NOTE | 2020-08-12 10:32 | Hematology/Onc Progress Note ---
Assessment/Plan Assessment/Plan Assessment/Plan ASSESSMENT AND PLAN: # Leukocytosis is due to sepsis, fevers, leukocytosis. Avoid nephrotoxic drugs. --> ABX Continue Zyvox, cefepime, and Flagyl --> iamging has been reviewed --> as per pulm and id recs --> wbc 22-->18-->12->11->16-->22-->18 # Anemia due to hemodilution --> if lower than 10, get workup --> transfuse prn --> hgb 11-->10-->7.4-->9->8.8-->8.9-->8.2 # Thrombocytopenia due to underlying infection --> medications have been reviewed --> 186-->127-->105->160 --> is on hep, monitor --> smear has been reviewed --> hep and hiv neg # Trach, vent. # Dysphagia, on G-tube. 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 # Diabetes. # Hypertension. # Acute renal failure. # GERD. # Dvt ppx heparin sq Appreciate consultation Subjective Allergies: Coded Allergies: No Known Allergies (Unverified , 08/01/20) Subjective Subjective Allergies: Coded Allergies: No Known Allergies (Unverified , 08/01/20) All Systems: reviewed and negative except above Subjective 08/04 remains on vent, abx, labs reviewed, meds noted 08/06 hd prn, no bleeding,with mota and rectal tube, labs noted 08/07 tolerating gt feeds, no new events overnight, anil rn 08/08 nv, vent, tolerating tube feeds, labs noted 08/09 nv, vent, tolerating tube feeds, labs pending 08/10 nv, trach/vent, no new events, labs are noted, comfortable 08/11 nv, trach/vent, no new events, no night sweats, abx 08/12:remains on abx treatment no bleeding reported Objective Objective Current Medications Medications (Trade) Dose Ordered Sig/Maegan Route PRN Reason Start Time Stop Time Status Last Admin Dose Admin Acetaminophen (Tylenol) 650 mg Q4H PRN GT For Pain 08/02/20 15:45 09/01/20 15:44 08/03/20 02:13 Acetaminophen (Tylenol) 650 mg Q4H PRN GT Temp >100.5 08/02/20 15:45 09/01/20 15:44 Barium Sulfate (Readi-Cat 2) 450 ml NOW PRN ORAL Radiology Procedure 08/10/20 12:45 08/12/20 12:44 Calcium Acetate (Phoslo) 1,334 mg TIAC GT 08/09/20 16:30 11/03/20 11:29 08/12/20 06:51 Chlorhexidine Gluconate (Deisy-Hex 2%) 1 applic BIOTEC TOPIC 08/02/20 21:00 10/31/20 20:59 08/11/20 21:24 Dextrose 1,000 ml @ 0 mls/hr Q0M IV 08/02/20 09:15 09/01/20 09:14 Furosemide (Lasix) 60 mg ONCE IV 08/12/20 08:45 08/12/20 11:00 08/12/20 09:19 Heparin Sodium (Porcine) (Heparin 5000 units/ml) 5,000 units EVERY 12 HOURS SUBQ 08/02/20 21:00 09/16/20 20:59 08/12/20 09:22 Hydralazine HCl (Apresoline) 10 mg Q4H PRN IV sbp >160 08/11/20 13:45 11/09/20 13:44 08/11/20 14:06 Lansoprazole (Prevacid) 30 mg DAILY GT 08/10/20 09:00 09/09/20 08:59 08/12/20 09:19 Metoclopramide HCl (Reglan) 10 mg Q6H PRN IVP Nausea & Vomiting 08/05/20 14:15 09/04/20 14:14 08/07/20 04:38 Metoprolol Tartrate (Lopressor) 25 mg ONCE GT 08/12/20 09:45 08/12/20 10:45 Metoprolol Tartrate (Lopressor) 50 mg BID GT 08/12/20 18:00 11/07/20 05:59 Piperacillin Sod/ Tazobactam Sod 3.375 gm/Sodium Chloride 110 ml @ 27.5 mls/hr EVERY 8 HOURS IVPB 08/09/20 22:00 08/14/20 21:59 08/12/20 06:51 [facility] DAILY PRN MISC Per rx protocol 08/09/20 18:30 09/08/20 18:29 Last 24 Hour Vital Signs Date Time Temp Pulse Resp B/P (MAP) Pulse Ox O2 Delivery O2 Flow Rate FiO2 08/12/20 08:00 Mechanical Ventilator 08/12/20 08:00 84 08/12/20 08:00 98.2 92 23 159/93 (115) 100 08/12/20 08:00 30 08/12/20 06:51 101 160/90 08/12/20 04:00 Mechanical Ventilator 08/12/20 04:00 101 08/12/20 04:00 97.1 92 18 160/90 (113) 100 08/12/20 04:00 30 08/12/20 00:06 Mechanical Ventilator 08/12/20 00:00 97.8 85 16 157/98 (117) 99 08/12/20 00:00 30 08/11/20 23:30 94 23 30 08/11/20 21:24 97 155/85 08/11/20 20:00 98.2 97 16 155/85 (108) 99 08/11/20 20:00 97 08/11/20 20:00 Mechanical Ventilator 08/11/20 18:45 100 18 30 08/11/20 16:00 91 08/11/20 16:00 30 08/11/20 16:00 98.1 96 19 172/94 (120) 97 08/11/20 16:00 Mechanical Ventilator 08/11/20 14:38 72 19 30 08/11/20 14:06 171/96 08/11/20 14:06 88 171/96 08/11/20 12:00 88 08/11/20 12:00 97.9 88 19 171/96 (121) 100 08/11/20 12:00 Mechanical Ventilator 08/11/20 12:00 30 08/11/20 11:24 77 16 30 08/11/20 08:00 Mechanical Ventilator 08/11/20 08:00 98.1 83 19 165/99 (121) 100 08/11/20 08:00 73 08/11/20 08:00 30 08/11/20 07:12 75 16 30 08/11/20 06:57 87 154/90 08/11/20 04:00 98.1 90 20 135/82 (99) 99 08/11/20 04:00 Mechanical Ventilator 08/11/20 04:00 93 08/11/20 04:00 30 08/11/20 03:21 68 17 30 08/11/20 00:00 Mechanical Ventilator 08/11/20 00:00 72 08/11/20 00:00 30 08/11/20 00:00 97.9 78 20 145/87 (106) 100 08/10/20 23:02 75 16 30 08/10/20 21:43 88 129/86 08/10/20 20:00 68 08/10/20 20:00 Mechanical Ventilator 08/10/20 20:00 97.5 75 20 153/91 (111) 100 08/10/20 20:00 30 08/10/20 19:49 73 19 30 08/10/20 16:00 74 08/10/20 16:00 30 08/10/20 16:00 97.7 85 20 151/86 (107) 100 08/10/20 15:59 Mechanical Ventilator 08/10/20 13:08 98 129/80 08/10/20 13:01 74 16 30 08/10/20 12:00 82 08/10/20 11:54 30 08/10/20 11:53 97.7 98 20 129/80 (96) 100 08/10/20 11:53 Mechanical Ventilator Intake and Output 08/11/20 08/12/20 18:59 06:59 Intake Total 480 ml Output Total 650 ml Balance -170 ml Tube Feeding 480 ml Output Urine Total 650 ml Labs Test 08/09/20 23:00 08/10/20 03:20 08/10/20 12:20 08/11/20 03:35 Urine Color Yellow Urine Appearance Cloudy Urine pH 5 (4.5-8.0) Urine Specific [place] 1.020 (1.005-1.035) Urine Protein 3+ (NEGATIVE) Urine Glucose (UA) Negative (NEGATIVE) Urine Ketones Negative (NEGATIVE) Urine Blood 1+ (NEGATIVE) Urine Nitrite Negative (NEGATIVE) Urine Bilirubin Negative (NEGATIVE) Urine Urobilinogen Normal MG/DL (0.0-1.0) Urine Leukocyte Esterase 1+ (NEGATIVE) Urine RBC 2-4 /HPF (0 - 0) Urine WBC 2-4 /HPF (0 - 0) Urine Squamous Epithelial Cells Few /LPF (NONE/OCC) Urine Bacteria Moderate /HPF (NONE) Urine Yeast Many /HPF (NONE) White Blood Count 21.7 K/UL (4.8-10.8) 17.7 K/UL (4.8-10.8) Red Blood Count 2.86 M/UL (4.70-6.10) 2.59 M/UL (4.70-6.10) Hemoglobin 8.9 G/DL (14.2-18.0) 8.2 G/DL (14.2-18.0) Hematocrit 27.6 % (42.0-52.0) 24.7 % (42.0-52.0) Mean Corpuscular Volume 96 FL (80-99) 95 FL (80-99) Mean Corpuscular Hemoglobin 31.1 PG (27.0-31.0) 31.7 PG (27.0-31.0) Mean Corpuscular Hemoglobin Concent 32.2 G/DL (32.0-36.0) 33.2 G/DL (32.0-36.0) Red Cell Distribution Width 14.9 % (11.6-14.8) 15.3 % (11.6-14.8) Platelet Count 248 K/UL (150-450) 256 K/UL (150-450) Mean Platelet Volume 6.8 FL (6.5-10.1) 6.8 FL (6.5-10.1) Neutrophils (%) (Auto) % (45.0-75.0) 79.7 % (45.0-75.0) Lymphocytes (%) (Auto) % (20.0-45.0) 12.0 % (20.0-45.0) Monocytes (%) (Auto) % (1.0-10.0) 5.8 % (1.0-10.0) Eosinophils (%) (Auto) % (0.0-3.0) 1.2 % (0.0-3.0) Basophils (%) (Auto) % (0.0-2.0) 1.3 % (0.0-2.0) Differential Total Cells Counted 100 Neutrophils % (Manual) 63 % (45-75) Lymphocytes % (Manual) 17 % (20-45) Monocytes % (Manual) 6 % (1-10) Eosinophils % (Manual) 7 % (0-3) Basophils % (Manual) 0 % (0-2) Metamyelocytes % 1 % (0-0) Myelocytes % 5 % (0-0) Band Neutrophils 1 % (0-8) Platelet Estimate Adequate Platelet Morphology Normal Anisocytosis 1+ Sodium Level 142 MMOL/L (136-145) 142 MMOL/L (136-145) Potassium Level 3.2 MMOL/L (3.5-5.1) 2.9 MMOL/L (3.5-5.1) Chloride Level 106 MMOL/L (98-107) 106 MMOL/L (98-107) Carbon Dioxide Level 28 MMOL/L (21-32) 25 MMOL/L (21-32) Anion Gap 8 mmol/L (5-15) 11 mmol/L (5-15) Blood Urea Nitrogen 76 mg/dL (7-18) 76 mg/dL (7-18) Creatinine 1.4 MG/DL (0.55-1.30) 1.7 MG/DL (0.55-1.30) Estimat Glomerular Filtration Rate 50.7 mL/min (>60) 40.5 mL/min (>60) Glucose Level 120 MG/DL (74-106) 155 MG/DL (74-106) Calcium Level 9.0 MG/DL (8.5-10.1) 8.6 MG/DL (8.5-10.1) Phosphorus Level 3.0 MG/DL (2.5-4.9) 2.3 MG/DL (2.5-4.9) Magnesium Level 2.2 MG/DL (1.8-2.4) 2.0 MG/DL (1.8-2.4) Total Bilirubin 0.5 MG/DL (0.2-1.0) 0.4 MG/DL (0.2-1.0) Aspartate Amino Transf (AST/SGOT) 71 U/L (15-37) 39 U/L (15-37) Alanine Aminotransferase (ALT/SGPT) 152 U/L (12-78) 111 U/L (12-78) Alkaline Phosphatase 89 U/L (46-116) 89 U/L (46-116) Total Protein 6.3 G/DL (6.4-8.2) 5.9 G/DL (6.4-8.2) Albumin 2.2 G/DL (3.4-5.0) 2.0 G/DL (3.4-5.0) Globulin 4.1 g/dL 3.9 g/dL Albumin/Globulin Ratio 0.5 (1.0-2.7) 0.5 (1.0-2.7) Random Vancomycin Level 21.3 ug/mL Test 08/11/20 10:37 08/11/20 18:45 08/12/20 00:33 08/12/20 05:40 D-Dimer 2.23 mg/L FEU (0.00-0.49) Random Vancomycin Level 29.1 ug/mL POC Whole Blood Glucose 128 MG/DL (74-106) White Blood Count 16.8 K/UL (4.8-10.8) Red Blood Count 2.72 M/UL (4.70-6.10) Hemoglobin 8.5 G/DL (14.2-18.0) Hematocrit 26.3 % (42.0-52.0) Mean Corpuscular Volume 97 FL (80-99) Mean Corpuscular Hemoglobin 31.3 PG (27.0-31.0) Mean Corpuscular Hemoglobin Concent 32.4 G/DL (32.0-36.0) Red Cell Distribution Width 15.5 % (11.6-14.8) Platelet Count 266 K/UL (150-450) Mean Platelet Volume 6.1 FL (6.5-10.1) Neutrophils (%) (Auto) 84.5 % (45.0-75.0) Lymphocytes (%) (Auto) 9.2 % (20.0-45.0) Monocytes (%) (Auto) 5.5 % (1.0-10.0) Eosinophils (%) (Auto) 0.0 % (0.0-3.0) Basophils (%) (Auto) 0.8 % (0.0-2.0) Sodium Level 143 MMOL/L (136-145) Potassium Level 3.7 MMOL/L (3.5-5.1) Chloride Level 109 MMOL/L (98-107) Carbon Dioxide Level 24 MMOL/L (21-32) Anion Gap 10 mmol/L (5-15) Blood Urea Nitrogen 65 mg/dL (7-18) Creatinine 1.6 MG/DL (0.55-1.30) Estimat Glomerular Filtration Rate 43.5 mL/min (>60) Glucose Level 128 MG/DL (74-106) Calcium Level 9.2 MG/DL (8.5-10.1) Phosphorus Level 4.0 MG/DL (2.5-4.9) Magnesium Level 2.1 MG/DL (1.8-2.4) Total Bilirubin 0.5 MG/DL (0.2-1.0) Aspartate Amino Transf (AST/SGOT) 42 U/L (15-37) Alanine Aminotransferase (ALT/SGPT) 100 U/L (12-78) Alkaline Phosphatase 99 U/L (46-116) Total Protein 6.5 G/DL (6.4-8.2) Albumin 2.1 G/DL (3.4-5.0) Globulin 4.4 g/dL Albumin/Globulin Ratio 0.5 (1.0-2.7) Test 08/12/20 06:10 POC Whole Blood Glucose 118 MG/DL (74-106) Height (Feet): 5 Height (Inches): 7.00 Weight (Pounds): 175 Objective Physical Exam General Appearance: lethargic Lines, tubes and drains: trach+++ vent++++ HEENT: normocephalic, atraumatic, mucous membranes moist Neck: normal alignment Respiratory/Chest: rhonchi - bilaterally Cardiovascular/Chest: normal peripheral pulses, regular rhythm Abdomen: soft, no mass, ++ feeding tube Extremities: no edema, no cyanosis Skin Exam: normal pigmentation, warm/dry Neurologic: unresponsiveness Fern Mak NP Aug 12, 2020 10:32
[2020-08-12 12:00] VITALS: BP 138/92
--- NOTE | 2020-08-12 12:08 | Pulmonology Progress Note ---
Subjective ROS Limited/Unobtainable: Yes Interval Events: No new events Constitutional: Reports: fatigue, other - trach and vent ; Denies: fever HEENT: Repors: no symptoms Respiratory: Reports: no symptoms Cardiovascular: Reports: no symptoms Gastrointestinal/Abdominal: Reports: diarrhea, other - + rectal tube ; Denies: nausea, vomiting Psychiatric: Reports: other - NA Skin: Denies: rash Musculoskeletal: Reports: other - NA Allergies: Coded Allergies: No Known Allergies (Unverified , 08/01/20) All Systems: reviewed and negative except above Objective Last 24 Hour Vital Signs Date Time Temp Pulse Resp B/P (MAP) Pulse Ox O2 Delivery O2 Flow Rate FiO2 08/12/20 10:36 86 152/89 08/12/20 08:00 Mechanical Ventilator 08/12/20 08:00 84 08/12/20 08:00 98.2 92 23 159/93 (115) 100 08/12/20 08:00 30 08/12/20 06:51 101 160/90 08/12/20 04:00 Mechanical Ventilator 08/12/20 04:00 101 08/12/20 04:00 97.1 92 18 160/90 (113) 100 08/12/20 04:00 30 08/12/20 00:06 Mechanical Ventilator 08/12/20 00:00 97.8 85 16 157/98 (117) 99 08/12/20 00:00 30 08/11/20 23:30 94 23 30 08/11/20 21:24 97 155/85 08/11/20 20:00 98.2 97 16 155/85 (108) 99 08/11/20 20:00 97 08/11/20 20:00 Mechanical Ventilator 08/11/20 18:45 100 18 30 08/11/20 16:00 91 08/11/20 16:00 30 08/11/20 16:00 98.1 96 19 172/94 (120) 97 08/11/20 16:00 Mechanical Ventilator 08/11/20 14:38 72 19 30 08/11/20 14:06 171/96 08/11/20 14:06 88 171/96 Intake and Output 08/11/20 08/12/20 19:00 07:00 Intake Total 440 ml Output Total 650 ml Balance -210 ml Tube Feeding 440 ml Output Urine Total 650 ml Objective saturating well on current vent setting; s/p G tube General Appearance: WD/WN HEENT: normocephalic, status post trach Respiratory: chest wall non-tender Cardiovascular: normal peripheral pulses, normal rate Abdomen: normal bowel sounds Microbiology Date/Time Source Procedure Growth Status 08/10/20 11:20 Nasopharynx SARS-CoV-2 RdRp Gene Assay - Final Complete 08/10/20 03:25 Blood Blood Culture - Preliminary NO GROWTH AFTER 24 HOURS Resulted 08/10/20 03:20 Blood Blood Culture - Preliminary NO GROWTH AFTER 24 HOURS Resulted 08/09/20 23:00 Urine,Clean Catch Urine Culture - Final NO GROWTH AFTER 48 HOURS Complete 08/09/20 23:00 Sputum Gram Stain - Final Resulted 08/09/20 23:00 Sputum Culture - Preliminary Acinetobacter Baumannii Complx Resulted Laboratory Tests 08/11/20 18:45: Random Vancomycin Level 29.1 08/12/20 00:33: POC Whole Blood Glucose 128H 08/12/20 05:40: White Blood Count 16.8H, Red Blood Count 2.72L, Hemoglobin 8.5L, Hematocrit 26.3L, Mean Corpuscular Volume 97, Mean Corpuscular Hemoglobin 31.3H, Mean Corpuscular Hemoglobin Concent 32.4, Red Cell Distribution Width 15.5H, Platelet Count 266, Mean Platelet Volume 6.1L, Neutrophils (%) (Auto) 84.5H, Lymphocytes (%) (Auto) 9.2L, Monocytes (%) (Auto) 5.5, Eosinophils (%) (Auto) 0.0, Basophils (%) (Auto) 0.8, Sodium Level 143, Potassium Level 3.7, Chloride Level 109H, Carbon Dioxide Level 24, Anion Gap 10, Blood Urea Nitrogen 65H, Creatinine 1.6H, Estimat Glomerular Filtration Rate 43.5, Glucose Level 128H, Calcium Level 9.2, Phosphorus Level 4.0, Magnesium Level 2.1, Total Bilirubin 0.5, Aspartate Amino Transf (AST/SGOT) 42H, Alanine Aminotransferase (ALT/SGPT) 100H, Alkaline Phosphatase 99, Total Protein 6.5, Albumin 2.1L, Globulin 4.4, Albumin/Globulin Ratio 0.5L 08/12/20 06:10: POC Whole Blood Glucose 118H Current Medications Medications (Trade) Dose Ordered Sig/Maegan Route PRN Reason Start Time Stop Time Status Last Admin Dose Admin Acetaminophen (Tylenol) 650 mg Q4H PRN GT For Pain 08/02/20 15:45 09/01/20 15:44 08/03/20 02:13 Acetaminophen (Tylenol) 650 mg Q4H PRN GT Temp >100.5 08/02/20 15:45 09/01/20 15:44 Barium Sulfate (Readi-Cat 2) 450 ml NOW PRN ORAL Radiology Procedure 08/10/20 12:45 08/12/20 12:44 Calcium Acetate (Phoslo) 1,334 mg TIAC GT 08/09/20 16:30 11/03/20 11:29 08/12/20 10:36 Chlorhexidine Gluconate (Deisy-Hex 2%) 1 applic BIOTEC TOPIC 08/02/20 21:00 10/31/20 20:59 08/11/20 21:24 Dextrose 1,000 ml @ 0 mls/hr Q0M IV 08/02/20 09:15 09/01/20 09:14 Heparin Sodium (Porcine) (Heparin 5000 units/ml) 5,000 units EVERY 12 HOURS SUBQ 08/02/20 21:00 09/16/20 20:59 08/12/20 09:22 Hydralazine HCl (Apresoline) 10 mg Q4H PRN IV sbp >160 08/11/20 13:45 11/09/20 13:44 08/11/20 14:06 Lansoprazole (Prevacid) 30 mg DAILY GT 08/10/20 09:00 09/09/20 08:59 08/12/20 09:19 Metoclopramide HCl (Reglan) 10 mg Q6H PRN IVP Nausea & Vomiting 08/05/20 14:15 09/04/20 14:14 08/07/20 04:38 Metoprolol Tartrate (Lopressor) 50 mg BID GT 08/12/20 18:00 11/07/20 05:59 Piperacillin Sod/ Tazobactam Sod 3.375 gm/Sodium Chloride 110 ml @ 27.5 mls/hr EVERY 8 HOURS IVPB 08/09/20 22:00 08/14/20 21:59 08/12/20 06:51 Vancomycin HCl (Vanco pharmacy to dose) 1 ea DAILY PRN MISC Per rx protocol 08/09/20 18:30 09/08/20 18:29 Assessment/Plan Assessment/Plan 1. Chronic respiratory failure. Chronic tracheostomy 2. Metabolic acidosis. On hemodialysis 3. Renal failure. HD per renal 4. Leukocytosis. 5. Sepsis. Source unclear; C dif negative; CXR clear DISCUSSION: Agree with broad spectrum antibiotics. We will continue AC mode. Currently FiO2 30%; PEEP 5 Discontinued bicarbonate supplementation. Noted plans for HD Hemodynamically stable We will follow carefully. Stool OB positive CXR 08/11 shows mild atelectasis D dimer 2.35; lower than prior Doubt embolic phenomenon The care for this patient was discussed with my supervising physician Time spent for this case was approximately 31 minutes Jarek Campos Aug 12, 2020 12:08
--- NOTE | 2020-08-12 14:17 | Diagnostic Imaging Report ---
EXAM: CT Head Without Intravenous Contrast CLINICAL HISTORY: HTN TECHNIQUE: Axial computed tomography images of the head/brain without intravenous contrast. CTDI is 53.40 mGy and DLP is 1045.50 mGy-cm. One or more of the following dose reduction techniques were used: automated exposure control, adjustment of the mA and/or kV according to patient size, use of iterative reconstruction technique. COMPARISON: No relevant prior studies available. FINDINGS: 2.2 x 2 cm lesion centered within the left thalamus. This is predominantly hypodense relative to brain parenchyma, but demonstrates a dense periphery. Would favor a resorbing thalamic hematoma in the late subacute stages. Mild mass-effect. Right thalamic hypodensity suggesting chronic lacunar infarct or old, completely resorbed hematoma with residual encephalomalacia. Diffuse involutional and microvascular ischemic changes. Ventriculomegaly is felt to be commensurate with central volume loss. No narrowing of the callosal angle to suggest communicating hydrocephalus. Atherosclerosis of skull base arteries. Right maxillary sinus mucus retention cyst. Mild ethmoidal mucosal thickening. IMPRESSION: 2.2 cm lesion in the left thalamus. Favor a resorbing hematoma in the late subacute stages. MRI with and without contrast including gradient echo sequence may be helpful to confirm. Only mild mass-effect. Old lacunar infarct versus completely resorbed hematoma to the right thalamus. Diffuse involutional and microvascular ischemic changes.
--- NOTE | 2020-08-12 15:51 | Surgery Progress Note ---
Surgery Progress Note Subjective Procedure Performed right femoral temporary hemodialysis catheter insertion Additional Comments stable comfortable no n/v on support Objective Last 24 Hour Vital Signs Date Time Temp Pulse Resp B/P (MAP) Pulse Ox O2 Delivery O2 Flow Rate FiO2 08/12/20 12:00 30 08/12/20 12:00 98.1 90 16 138/92 (107) 100 08/12/20 12:00 Mechanical Ventilator 08/12/20 11:42 89 08/12/20 10:36 86 152/89 08/12/20 08:00 Mechanical Ventilator 08/12/20 08:00 84 08/12/20 08:00 98.2 92 23 159/93 (115) 100 08/12/20 08:00 30 08/12/20 06:51 101 160/90 08/12/20 04:00 Mechanical Ventilator 08/12/20 04:00 101 08/12/20 04:00 97.1 92 18 160/90 (113) 100 08/12/20 04:00 30 08/12/20 00:06 Mechanical Ventilator 08/12/20 00:00 97.8 85 16 157/98 (117) 99 08/12/20 00:00 30 08/11/20 23:30 94 23 30 08/11/20 21:24 97 155/85 08/11/20 20:00 98.2 97 16 155/85 (108) 99 08/11/20 20:00 97 08/11/20 20:00 Mechanical Ventilator 08/11/20 18:45 100 18 30 08/11/20 16:00 91 08/11/20 16:00 30 08/11/20 16:00 98.1 96 19 172/94 (120) 97 08/11/20 16:00 Mechanical Ventilator I&O Intake and Output 08/11/20 08/12/20 19:00 07:00 Intake Total 440 ml Output Total 650 ml Balance -210 ml Tube Feeding 440 ml Output Urine Total 650 ml Dressing: saturated Cardiovascular: RSR Respiratory: decreased breath sounds Abdomen: soft, non-tender, present bowel sounds Extremities: no edema, no tenderness, no cyanosis Laboratory Tests Test 08/11/20 18:45 08/12/20 00:33 08/12/20 05:40 08/12/20 06:10 Random Vancomycin Level 29.1 ug/mL POC Whole Blood Glucose 128 MG/DL (74-106) H 118 MG/DL (74-106) H White Blood Count 16.8 K/UL (4.8-10.8) H Red Blood Count 2.72 M/UL (4.70-6.10) L Hemoglobin 8.5 G/DL (14.2-18.0) L Hematocrit 26.3 % (42.0-52.0) L Mean Corpuscular Volume 97 FL (80-99) Mean Corpuscular Hemoglobin 31.3 PG (27.0-31.0) H Mean Corpuscular Hemoglobin Concent 32.4 G/DL (32.0-36.0) Red Cell Distribution Width 15.5 % (11.6-14.8) H Platelet Count 266 K/UL (150-450) Mean Platelet Volume 6.1 FL (6.5-10.1) L Neutrophils (%) (Auto) 84.5 % (45.0-75.0) H Lymphocytes (%) (Auto) 9.2 % (20.0-45.0) L Monocytes (%) (Auto) 5.5 % (1.0-10.0) Eosinophils (%) (Auto) 0.0 % (0.0-3.0) Basophils (%) (Auto) 0.8 % (0.0-2.0) Sodium Level 143 MMOL/L (136-145) Potassium Level 3.7 MMOL/L (3.5-5.1) Chloride Level 109 MMOL/L (98-107) H Carbon Dioxide Level 24 MMOL/L (21-32) Anion Gap 10 mmol/L (5-15) Blood Urea Nitrogen 65 mg/dL (7-18) H Creatinine 1.6 MG/DL (0.55-1.30) H Estimat Glomerular Filtration Rate 43.5 mL/min (>60) Glucose Level 128 MG/DL (74-106) H Calcium Level 9.2 MG/DL (8.5-10.1) Phosphorus Level 4.0 MG/DL (2.5-4.9) Magnesium Level 2.1 MG/DL (1.8-2.4) Total Bilirubin 0.5 MG/DL (0.2-1.0) Aspartate Amino Transf (AST/SGOT) 42 U/L (15-37) H Alanine Aminotransferase (ALT/SGPT) 100 U/L (12-78) H Alkaline Phosphatase 99 U/L (46-116) Total Protein 6.5 G/DL (6.4-8.2) Albumin 2.1 G/DL (3.4-5.0) L Globulin 4.4 g/dL Albumin/Globulin Ratio 0.5 (1.0-2.7) L Test 08/12/20 12:20 POC Whole Blood Glucose 146 MG/DL (74-106) H Plan Problems: (1) Respiratory distress (2) Renal failure Assessment & Plan: plan HD line soon temp hd consent from daughter (3) Metabolic acidosis (4) NSTEMI (non-ST elevated myocardial infarction) (5) Sepsis Assessment & Plan: okay for tf iv fluids vent via trach weaning vent g tube okay decubitus eval done and local care provided labs noted acidosis plan HD cont abx as per ID will follow with recs thank you DAILY ESTIMATED NEEDS: Needs based on Critical care, wound, AUNDREA/ 62.7kg 22-28 kcals/kg 1487-1036 total kcals 0.8-1.25 (increase w/ renal fxn improvement) g protein/kg 50-78 g total protein 20-25 mL/kg 4226-5127 total fluid mLs NUTRITION DIAGNOSIS: Swallowing difficulty R/T respiratory failure as evidenced by trach/vent dep, PEG dep. CURRENT TF: NPO ENTERAL NUTRITION RECOMMENDATIONS: Nepro @ 35ml/hr x 24 hrs to provide 840ml, 1512kcal, 68g prot, 611ml free water * As medically appropriate, initiate Nepro, rec goal rate of 35ml/hr x 24 hrs * HOB over 30 degrees/ water flush per MD ADDITIONAL RECOMMENDATIONS: * Per SNF: HT=68" and YH=120ewi -> daily calibrated bedscale wt * Monitor renal fxn and lytes, ability to increase est prot needs * NISS w/ TF -> h/o DM * Probiotics for diarrhea * Wound healing: Add Nephrovite x 1, ZnSO4 220mg QD x 10 days Kenji BID w/ TF Rohit Brand Aug 12, 2020 15:50
[2020-08-12 16:00] VITALS: BP 143/83
[2020-08-12] MEDS: Metoprolol Tartrate 50mg tab GT SCH (17:40)
--- NOTE | 2020-08-12 19:36 | Cardiac Electrophysiology PN ---
Assessment/Plan Assessment/Plan 1. Troponin elevation. Levels are coming down at 0.8 to 0.5. Due to renal failure with BUN of 343, creatinine of 4.1 as well as sepsis with white count of 22,000. His EKG also shows sinus rhythm with inferolateral ischemia. On Lopressor 12.5 bid. 2. Shortness of breath with respiratory failure, status post tracheostomy, on the ventilator with 30% FiO2. 3. Dysphagia, status post PEG placement. 4. Acute renal failure with BUN of 343, creatinine of 4.1. S/P Right IJ Nicholas catheter 08/07. Had first HD on 08/03. No more dialysis for now as BUN 65 and Cr 1.6 today 5. Diabetes. 6. History of left thalamic hemorrhage. Subjective Subjective S/P Right IJ Nicholas catheter placement. On the vent with 30% Fio2 via trach. HR 100s Femoral Nicholas removed . No HD yet Objective Last 24 Hour Vital Signs Date Time Temp Pulse Resp B/P (MAP) Pulse Ox O2 Delivery O2 Flow Rate FiO2 08/12/20 19:28 82 18 30 08/12/20 17:40 81 154/88 08/12/20 16:00 30 08/12/20 16:00 Mechanical Ventilator 08/12/20 16:00 98.2 85 16 143/83 (103) 100 08/12/20 15:35 79 16 30 08/12/20 15:35 81 08/12/20 12:00 30 08/12/20 12:00 98.1 90 16 138/92 (107) 100 08/12/20 12:00 Mechanical Ventilator 08/12/20 11:42 89 08/12/20 10:36 86 152/89 08/12/20 08:00 Mechanical Ventilator 08/12/20 08:00 84 08/12/20 08:00 98.2 92 23 159/93 (115) 100 08/12/20 08:00 30 08/12/20 07:00 78 16 30 08/12/20 06:51 101 160/90 08/12/20 04:00 Mechanical Ventilator 08/12/20 04:00 101 08/12/20 04:00 97.1 92 18 160/90 (113) 100 08/12/20 04:00 30 08/12/20 00:06 Mechanical Ventilator 08/12/20 00:00 97.8 85 16 157/98 (117) 99 08/12/20 00:00 30 08/11/20 23:30 94 23 30 08/11/20 21:24 97 155/85 08/11/20 20:00 98.2 97 16 155/85 (108) 99 08/11/20 20:00 97 08/11/20 20:00 Mechanical Ventilator Intake and Output 08/11/20 08/12/20 19:00 07:00 Intake Total 440 ml Output Total 650 ml Balance -210 ml Tube Feeding 440 ml Output Urine Total 650 ml Laboratory Tests Test 08/12/20 00:33 08/12/20 05:40 08/12/20 06:10 08/12/20 12:20 POC Whole Blood Glucose 128 MG/DL (74-106) H 118 MG/DL (74-106) H 146 MG/DL (74-106) H White Blood Count 16.8 K/UL (4.8-10.8) H Red Blood Count 2.72 M/UL (4.70-6.10) L Hemoglobin 8.5 G/DL (14.2-18.0) L Hematocrit 26.3 % (42.0-52.0) L Mean Corpuscular Volume 97 FL (80-99) Mean Corpuscular Hemoglobin 31.3 PG (27.0-31.0) H Mean Corpuscular Hemoglobin Concent 32.4 G/DL (32.0-36.0) Red Cell Distribution Width 15.5 % (11.6-14.8) H Platelet Count 266 K/UL (150-450) Mean Platelet Volume 6.1 FL (6.5-10.1) L Neutrophils (%) (Auto) 84.5 % (45.0-75.0) H Lymphocytes (%) (Auto) 9.2 % (20.0-45.0) L Monocytes (%) (Auto) 5.5 % (1.0-10.0) Eosinophils (%) (Auto) 0.0 % (0.0-3.0) Basophils (%) (Auto) 0.8 % (0.0-2.0) Sodium Level 143 MMOL/L (136-145) Potassium Level 3.7 MMOL/L (3.5-5.1) Chloride Level 109 MMOL/L (98-107) H Carbon Dioxide Level 24 MMOL/L (21-32) Anion Gap 10 mmol/L (5-15) Blood Urea Nitrogen 65 mg/dL (7-18) H Creatinine 1.6 MG/DL (0.55-1.30) H Estimat Glomerular Filtration Rate 43.5 mL/min (>60) Glucose Level 128 MG/DL (74-106) H Calcium Level 9.2 MG/DL (8.5-10.1) Phosphorus Level 4.0 MG/DL (2.5-4.9) Magnesium Level 2.1 MG/DL (1.8-2.4) Total Bilirubin 0.5 MG/DL (0.2-1.0) Aspartate Amino Transf (AST/SGOT) 42 U/L (15-37) H Alanine Aminotransferase (ALT/SGPT) 100 U/L (12-78) H Alkaline Phosphatase 99 U/L (46-116) Total Protein 6.5 G/DL (6.4-8.2) Albumin 2.1 G/DL (3.4-5.0) L Globulin 4.4 g/dL Albumin/Globulin Ratio 0.5 (1.0-2.7) L Test 08/12/20 17:43 POC Whole Blood Glucose 151 MG/DL (74-106) H Microbiology Date/Time Source Procedure Growth Status 08/10/20 11:20 Nasopharynx SARS-CoV-2 RdRp Gene Assay - Final Complete 08/10/20 03:25 Blood Blood Culture - Preliminary NO GROWTH AFTER 24 HOURS Resulted 08/10/20 03:20 Blood Blood Culture - Preliminary NO GROWTH AFTER 24 HOURS Resulted 08/09/20 23:00 Urine,Clean Catch Urine Culture - Final NO GROWTH AFTER 48 HOURS Complete 08/09/20 23:00 Sputum Gram Stain - Final Resulted 08/09/20 23:00 Sputum Culture - Preliminary Acinetobacter Baumannii Complx Resulted Objective HEAD AND NECK: Status post tracheostomy with no JVD. LUNGS: Coarse rhonchi. CARDIOVASCULAR: Regular S1 and S2 with no gallop. ABDOMEN: Status post G-tube. EXTREMITIES: No pitting edema. Gregorio Mari MD Aug 12, 2020 19:36
[2020-08-12 20:00] VITALS: BP 149/83
--- NOTE | 2020-08-12 20:28 | General Progress Note ---
Subjective Allergies: Coded Allergies: No Known Allergies (Unverified , 08/01/20) Subjective No acute events overnight per nursing. Patient with downtrending WBC. Leaning more to left. Unknown last known time. Neurology aware. CT head ordered. Stool OB positive. GI consulted. No active bleeding. Cr overall stable. Vent settings stable ROS unable to obtain due to ALOC Objective Last 24 Hour Vital Signs Date Time Temp Pulse Resp B/P (MAP) Pulse Ox O2 Delivery O2 Flow Rate FiO2 08/12/20 19:28 82 18 30 08/12/20 17:40 81 154/88 08/12/20 16:00 30 08/12/20 16:00 Mechanical Ventilator 08/12/20 16:00 98.2 85 16 143/83 (103) 100 08/12/20 15:35 79 16 30 08/12/20 15:35 81 08/12/20 12:00 30 08/12/20 12:00 98.1 90 16 138/92 (107) 100 08/12/20 12:00 Mechanical Ventilator 08/12/20 11:42 89 08/12/20 10:36 86 152/89 08/12/20 08:00 Mechanical Ventilator 08/12/20 08:00 84 08/12/20 08:00 98.2 92 23 159/93 (115) 100 08/12/20 08:00 30 08/12/20 07:00 78 16 30 08/12/20 06:51 101 160/90 08/12/20 04:00 Mechanical Ventilator 08/12/20 04:00 101 08/12/20 04:00 97.1 92 18 160/90 (113) 100 08/12/20 04:00 30 08/12/20 00:06 Mechanical Ventilator 08/12/20 00:00 97.8 85 16 157/98 (117) 99 08/12/20 00:00 30 08/11/20 23:30 94 23 30 08/11/20 21:24 97 155/85 Intake and Output 08/11/20 08/12/20 19:00 07:00 Intake Total 440 ml Output Total 650 ml Balance -210 ml Tube Feeding 440 ml Output Urine Total 650 ml Laboratory Tests 08/12/20 00:33: POC Whole Blood Glucose 128H 08/12/20 05:40: White Blood Count 16.8H, Red Blood Count 2.72L, Hemoglobin 8.5L, Hematocrit 26.3L, Mean Corpuscular Volume 97, Mean Corpuscular Hemoglobin 31.3H, Mean Corpuscular Hemoglobin Concent 32.4, Red Cell Distribution Width 15.5H, Platelet Count 266, Mean Platelet Volume 6.1L, Neutrophils (%) (Auto) 84.5H, Lymphocytes (%) (Auto) 9.2L, Monocytes (%) (Auto) 5.5, Eosinophils (%) (Auto) 0.0, Basophils (%) (Auto) 0.8, Sodium Level 143, Potassium Level 3.7, Chloride Level 109H, Carbon Dioxide Level 24, Anion Gap 10, Blood Urea Nitrogen 65H, Creatinine 1.6H, Estimat Glomerular Filtration Rate 43.5, Glucose Level 128H, Calcium Level 9.2, Phosphorus Level 4.0, Magnesium Level 2.1, Total Bilirubin 0.5, Aspartate Amino Transf (AST/SGOT) 42H, Alanine Aminotransferase (ALT/SGPT) 100H, Alkaline Phosphatase 99, Total Protein 6.5, Albumin 2.1L, Globulin 4.4, Albumin/Globulin Ratio 0.5L 08/12/20 06:10: POC Whole Blood Glucose 118H 08/12/20 12:20: POC Whole Blood Glucose 146H 08/12/20 17:43: POC Whole Blood Glucose 151H Height (Feet): 5 Height (Inches): 7.00 Weight (Pounds): 175 Objective General: Chronic trach/vent dependent male. Alert, not oriented HEENT: Normocephalic cephalic atraumatic, pupils equal round reactive to light and accommodation, nares patent and no symmetrical, no tonsillar exudates, mucous membranes moist + trach in place CV: Regular rate regular rhythm, no murmurs, rubs, or gallops Pulm: Lungs clear to auscultation bilaterally. No wheezes, rhonchi, or rales GI: Soft, nontender, nondistended, bowel sounds present Neuro: CN 2-12 intact bilaterally, no focal signs. UE and LE flaccid. Minimal response (baseline). Does not track. Ext: No lower extremity edema bilaterally + some UE and LE swelling bilaterally tace to 1+ Skin: no rashes lesions or ulcers Msk: Joints symmetrical in upper extremity and lower extremity bilaterally, no joint swelling. Lymph: No lymphadenopathy in upper extremity and lower extremity Assessment/Plan Assessment/Plan: #Acute on Chronic Resp Failure/Trach and Vent Dependent > Possible pneumoni on recent CXR- reviewed #Sepsis- Unclear Source, Rule out VAP #leukocytosis - worsening #elevated D-dimer > Afebrile. ? UTI - Appreciate ID recommendations: [email or web address] - Appreciate Pulm recommendations: Dr. Lee - ABX per ID - Vanc per pharm (08/09 - ) - Zosyn (08/09 - ) - CT chest, abd, pelvis non contrast per ID: Reviewed. No acute process. No pneumonia. - Check Venous duplex UE and LE bilaterally: Negative - Consider VQ scan although vent setting stable- defer to pulm -> Repeat D-dimer -> Downtrending. Defer pulmonary imaging to pulm. 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 Hale #Acute Renal Failure requiring HD #Associated AGMA #hypokalemia- replete PRN - Appreciate Nephro-Whit - Renal function is improving, can likely d/c HD -Monitor urine output -Avoid Nephrotoxic Agents -Phosphlo/Renvela #Hypertension - Metorpolol - Hydralazine PRN - Appreciate cardiology consult - Appreciate nephrology consult #NSTEMI-Demand Ischemia -Appreciate Dr. Mari- Troponins Trended -Stable - no acute interventions #POsitive Stool OB > no active bleeding - GI consult: Dr. Godoy #DMII Weight based insulin dosing; goal blood sugar less than 180 , Add long acting prn FENPPX DVTPPX: HSQ Fluids: per nephro Diet: tube feedings Lines: HD line PT/OT: pending Code status: Full Dispo: Rehab eventually Reason for Continued Hospitalization: Sepsis MIPS (Merit-based Incentive Payment System) Applicable CPT: 74291, 69137 CHECK ALL THAT ARE MET: [] Measure #5 (CHF): All ages. Prescribe RAGINI/ARB upon discharge for patients with left ventricular systolic dysfunction. If not, the reason is clearly docu mented in the medical chart [] Measure #8 (CHF): All ages. Prescribe a beta herbie upon discharge for patients with left ventricular systolic dysfunction. If not, the reason is clearly documented in the medical chart. [] Measure #47: Advance care plan or surrogate decision maker documented in the medical record. [x] Measure #130 The provider has documented, updated, or reviewed the patients current medication list and has documented it in the patients note. [x] Measure #374 (All): Send report to referring provider. [] Measure #407(Sepsis due to MSSA bacteremia): Age 18+ Patient treated with a beta-lactam antibiotic (Nafcillin, Oxacillin or Cefazolin) as definitive therapy. MEDICAL COMPLEXITYHigh complexity medical decision making (need 2/3 catego shaun)Problem - need 4 points [x]Acute/new problem with new plan for workup (4 points, 1 max) [] Acute/new problem without additional workup (3 points, 1 max) [x] Unstable chronic problem actively being managed (2 point each, 2 max) [x] Stable chronic problem actively being managed (1 point each, 2 max) [] Self-limited/transient process (constipation, muscle ache, etc) (1 point each, 2 max) Data - need 4 points [x] Reviewed labs/imaging studies (1 points, 2 max) [x] Independent review of imaging (EKG, xrays, etc) (2 points, 2 max) [x] Discussed case with consult/other MD/RN (2 points, 2 max) High Risk - qualify if have one of the following: [x] Severe exacerbation of acute problem, acute mental status change, IV narcotics, monitoring drug levels (vancomycin, INR, tacrolimus etc) I spent 40 minutes on this patient's case, and 22 mins was dedicated to counseling and/or care coordination. Discussed with ID, GI, neurology, RN Time of note may not reflect time of encounter Fredrick Silva D.O. Aug 12, 2020 20:27
--- NOTE | 2020-08-12 20:32 | Neurology Progress Note ---
Interim History Interim History ROS Limited/Unobtainable: Yes Interim History reported leaning towards left, ct brain done with left basal ganglia mixed lesions, possible hematoma vs other mass effect ordered mri Objective Physical Exam Last Vital Signs Date Time Temp Pulse Resp B/P (MAP) Pulse Ox O2 Delivery O2 Flow Rate FiO2 08/12/20 19:28 82 18 30 08/12/20 17:40 154/88 08/12/20 16:00 Mechanical Ventilator 08/12/20 16:00 98.2 100 Laboratory Tests Test 08/12/20 00:33 08/12/20 05:40 08/12/20 06:10 08/12/20 12:20 POC Whole Blood Glucose 128 MG/DL (74-106) H 118 MG/DL (74-106) H 146 MG/DL (74-106) H White Blood Count 16.8 K/UL (4.8-10.8) H Red Blood Count 2.72 M/UL (4.70-6.10) L Hemoglobin 8.5 G/DL (14.2-18.0) L Hematocrit 26.3 % (42.0-52.0) L Mean Corpuscular Volume 97 FL (80-99) Mean Corpuscular Hemoglobin 31.3 PG (27.0-31.0) H Mean Corpuscular Hemoglobin Concent 32.4 G/DL (32.0-36.0) Red Cell Distribution Width 15.5 % (11.6-14.8) H Platelet Count 266 K/UL (150-450) Mean Platelet Volume 6.1 FL (6.5-10.1) L Neutrophils (%) (Auto) 84.5 % (45.0-75.0) H Lymphocytes (%) (Auto) 9.2 % (20.0-45.0) L Monocytes (%) (Auto) 5.5 % (1.0-10.0) Eosinophils (%) (Auto) 0.0 % (0.0-3.0) Basophils (%) (Auto) 0.8 % (0.0-2.0) Sodium Level 143 MMOL/L (136-145) Potassium Level 3.7 MMOL/L (3.5-5.1) Chloride Level 109 MMOL/L (98-107) H Carbon Dioxide Level 24 MMOL/L (21-32) Anion Gap 10 mmol/L (5-15) Blood Urea Nitrogen 65 mg/dL (7-18) H Creatinine 1.6 MG/DL (0.55-1.30) H Estimat Glomerular Filtration Rate 43.5 mL/min (>60) Glucose Level 128 MG/DL (74-106) H Calcium Level 9.2 MG/DL (8.5-10.1) Phosphorus Level 4.0 MG/DL (2.5-4.9) Magnesium Level 2.1 MG/DL (1.8-2.4) Total Bilirubin 0.5 MG/DL (0.2-1.0) Aspartate Amino Transf (AST/SGOT) 42 U/L (15-37) H Alanine Aminotransferase (ALT/SGPT) 100 U/L (12-78) H Alkaline Phosphatase 99 U/L (46-116) Total Protein 6.5 G/DL (6.4-8.2) Albumin 2.1 G/DL (3.4-5.0) L Globulin 4.4 g/dL Albumin/Globulin Ratio 0.5 (1.0-2.7) L Test 08/12/20 17:43 POC Whole Blood Glucose 151 MG/DL (74-106) H Neurologic Exam Objective trach tachy grimaces to pain lethargic Impression/Recommendations Problems: (1) Respiratory distress (2) Renal failure (3) Metabolic acidosis (4) NSTEMI (non-ST elevated myocardial infarction) (5) Sepsis Diagnostic Impression Encephalopathy, likely metabolic sepsis hx of left thalamic hemorrhage likely from htn icu level map > 65 monitor mental status cont atb fu cultures ok for heparin SC given ich is chronic Pedro Hale MD Aug 12, 2020 20:32
[2020-08-12] MEDS ORDERED: Gadavist 7.5mMol/7.5ml vial IV PRN (20:45)
[2020-08-12] MEDS: Dyna-Hex 2% Top Sol 2oz TOPIC SCH (21:22)
[2020-08-13] VITALS: BP 153/94
[2020-08-13 04:00] VITALS: BP 158/95
[2020-08-13 04:37] LABS: BASOPHILS % (AUTO) 1.1 % (0.0-2.0); EOSINOPHILS % (AUTO) 0.1 % (0.0-3.0); HEMATOCRIT 25.4 % (42.0-52.0); HEMOGLOBIN 8.6 G/DL (14.2-18.0); LYMPHOCYTES % (AUTO) 13.5 % (20.0-45.0); MEAN CORPUSCULAR VOLUME 92 FL (80-99); MONOCYTES % (AUTO) 6.9 % (1.0-10.0); NEUTROPHILS % (AUTO) 78.3 % (45.0-75.0); PLATELET COUNT 270 K/UL (150-450); RED BLOOD COUNT 2.77 M/UL (4.70-6.10); RED CELL DISTRIBUTION WIDTH 16.6 % (11.6-14.8); WHITE BLOOD COUNT 12.7 K/UL (4.8-10.8)
[2020-08-13 05:20] LABS: PHOSPHORUS 4.3 MG/DL (2.5-4.9)
[2020-08-13 05:22] LABS: ALBUMIN 2.1 G/DL (3.4-5.0); ALBUMIN/GLOBULIN RATIO 0.5 (1.0-2.7); BILIRUBIN,TOTAL 0.4 MG/DL (0.2-1.0); CALCIUM 9.1 MG/DL (8.5-10.1); CREATININE 1.7 MG/DL (0.55-1.30); POTASSIUM 3.4 MMOL/L (3.5-5.1)
[2020-08-13] MEDS: Piperacillin/Tazobactam 3.375 GM in NS 110 ML IVPB SCH ×3 (06:08→21:17)
[2020-08-13 08:00] VITALS: BP 184/98
[2020-08-13] MEDS: Heparin 5000 units/ml inj SUBQ SCH ×2 (08:56→20:25)
[2020-08-13] MEDS: Metoprolol Tartrate 50mg tab GT SCH ×2 (08:58→17:49)
[2020-08-13] MEDS ORDERED: Vancomycin 1.25gm/250ml Premix IVPB ONE (09:00)
[2020-08-13 12:00] VITALS: BP 152/98
--- NOTE | 2020-08-13 12:08 | Hematology/Onc Progress Note ---
Assessment/Plan Assessment/Plan Assessment/Plan ASSESSMENT AND PLAN: # Leukocytosis is due to sepsis, fevers, leukocytosis. Avoid nephrotoxic drugs. --> ABX Continue Zyvox, cefepime, and Flagyl --> iamging has been reviewed --> as per pulm and id recs --> wbc 22-->18-->12->11->16-->22-->18--> 12.7 # Anemia due to hemodilution --> if lower than 10, get workup --> transfuse prn --> hgb 11-->10-->7.4-->9->8.8-->8.9-->8.2--> 8.6 # Thrombocytopenia due to underlying infection --> medications have been reviewed --> 186-->127-->105->160--> 270k --> is on hep, monitor --> smear has been reviewed --> hep and hiv neg # Trach, vent. # Dysphagia, on G-tube. 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 # Diabetes. # Hypertension. # Acute renal failure. # GERD. # Dvt ppx heparin sq Appreciate consultation Subjective Allergies: Coded Allergies: No Known Allergies (Unverified , 08/01/20) Subjective Subjective Allergies: Coded Allergies: No Known Allergies (Unverified , 08/01/20) All Systems: reviewed and negative except above Subjective 08/04 remains on vent, abx, labs reviewed, meds noted 08/06 hd prn, no bleeding,with mota and rectal tube, labs noted 08/07 tolerating gt feeds, no new events overnight, anil rn 08/08 nv, vent, tolerating tube feeds, labs noted 08/09 nv, vent, tolerating tube feeds, labs pending 08/10 nv, trach/vent, no new events, labs are noted, comfortable 08/11 nv, trach/vent, no new events, no night sweats, abx 12:remains on abx treatment no bleeding reported 13: tolerating vent settings, no distress Objective Objective Current Medications Medications (Trade) Dose Ordered Sig/Maegan Route PRN Reason Start Time Stop Time Status Last Admin Dose Admin Acetaminophen (Tylenol) 650 mg Q4H PRN GT For Pain 08/02/20 15:45 09/01/20 15:44 08/03/20 02:13 Acetaminophen (Tylenol) 650 mg Q4H PRN GT Temp >100.5 08/02/20 15:45 09/01/20 15:44 Calcium Acetate (Phoslo) 1,334 mg TIAC GT 08/09/20 16:30 11/03/20 11:29 08/13/20 11:53 Chlorhexidine Gluconate (Deisy-Hex 2%) 1 applic BIOTEC TOPIC 08/02/20 21:00 10/31/20 20:59 08/12/20 21:22 Dextrose 1,000 ml @ 0 mls/hr Q0M IV 08/02/20 09:15 09/01/20 09:14 Gadobutrol (Gadavist) 7.5 mmol NOW PRN IV Radiology Procedure 08/12/20 20:45 08/16/20 20:44 Heparin Sodium (Porcine) (Heparin 5000 units/ml) 5,000 units EVERY 12 HOURS SUBQ 08/02/20 21:00 09/16/20 20:59 08/13/20 08:56 Hydralazine HCl (Apresoline) 10 mg Q4H PRN IV sbp >160 08/11/20 13:45 11/09/20 13:44 08/11/20 14:06 Lansoprazole (Prevacid) 30 mg DAILY GT 08/10/20 09:00 09/09/20 08:59 08/13/20 08:52 Metoclopramide HCl (Reglan) 10 mg Q6H PRN IVP Nausea & Vomiting 08/05/20 14:15 09/04/20 14:14 08/07/20 04:38 Metoprolol Tartrate (Lopressor) 50 mg BID GT 08/12/20 18:00 11/07/20 05:59 08/13/20 08:58 Piperacillin Sod/ Tazobactam Sod 3.375 gm/Sodium Chloride 110 ml @ 27.5 mls/hr EVERY 8 HOURS IVPB 08/09/20 22:00 08/14/20 21:59 08/13/20 06:08 Vancomycin HCl (Vanco pharmacy to dose) 1 ea DAILY PRN MISC Per rx protocol 08/09/20 18:30 09/08/20 18:29 Last 24 Hour Vital Signs Date Time Temp Pulse Resp B/P (MAP) Pulse Ox O2 Delivery O2 Flow Rate FiO2 08/13/20 08:58 100 186/93 08/13/20 08:00 30 08/13/20 08:00 97.2 83 16 184/98 (126) 97 08/13/20 08:00 Mechanical Ventilator 08/13/20 07:46 90 08/13/20 04:00 74 08/13/20 04:00 30 08/13/20 04:00 Mechanical Ventilator 08/13/20 04:00 97.9 83 17 158/95 (116) 97 08/13/20 00:25 84 16 30 08/13/20 00:00 Mechanical Ventilator 08/13/20 00:00 99.1 97 17 153/94 (113) 100 08/13/20 00:00 30 08/13/20 00:00 94 08/12/20 20:00 Mechanical Ventilator 08/12/20 20:00 77 08/12/20 20:00 97.6 74 16 149/83 (105) 100 08/12/20 20:00 30 08/12/20 19:28 82 18 30 08/12/20 17:40 81 154/88 08/12/20 16:00 30 08/12/20 16:00 Mechanical Ventilator 08/12/20 16:00 98.2 85 16 143/83 (103) 100 08/12/20 15:35 79 16 30 08/12/20 15:35 81 08/12/20 12:00 30 08/12/20 12:00 98.1 90 16 138/92 (107) 100 08/12/20 12:00 Mechanical Ventilator 08/12/20 11:42 89 08/12/20 10:36 86 152/89 08/12/20 08:00 Mechanical Ventilator 08/12/20 08:00 84 08/12/20 08:00 98.2 92 23 159/93 (115) 100 08/12/20 08:00 30 08/12/20 07:00 78 16 30 08/12/20 06:51 101 160/90 08/12/20 04:00 Mechanical Ventilator 08/12/20 04:00 101 08/12/20 04:00 97.1 92 18 160/90 (113) 100 08/12/20 04:00 30 08/12/20 00:06 Mechanical Ventilator 08/12/20 00:00 97.8 85 16 157/98 (117) 99 08/12/20 00:00 30 08/11/20 23:30 94 23 30 08/11/20 21:24 97 155/85 08/11/20 20:00 98.2 97 16 155/85 (108) 99 08/11/20 20:00 97 08/11/20 20:00 Mechanical Ventilator 08/11/20 18:45 100 18 30 08/11/20 16:00 91 08/11/20 16:00 30 08/11/20 16:00 98.1 96 19 172/94 (120) 97 08/11/20 16:00 Mechanical Ventilator 08/11/20 14:38 72 19 30 08/11/20 14:06 171/96 08/11/20 14:06 88 171/96 Intake and Output 08/12/20 08/13/20 19:00 07:00 Intake Total 200 ml 560 ml Output Total 900 ml Balance 200 ml -340 ml Intake Free Water 120 ml Tube Feeding 200 ml 440 ml Output Urine Total 600 ml Stool Total 300 ml Labs Test 08/10/20 12:20 08/11/20 03:35 08/11/20 10:37 08/11/20 18:45 Random Vancomycin Level 21.3 ug/mL 29.1 ug/mL White Blood Count 17.7 K/UL (4.8-10.8) Red Blood Count 2.59 M/UL (4.70-6.10) Hemoglobin 8.2 G/DL (14.2-18.0) Hematocrit 24.7 % (42.0-52.0) Mean Corpuscular Volume 95 FL (80-99) Mean Corpuscular Hemoglobin 31.7 PG (27.0-31.0) Mean Corpuscular Hemoglobin Concent 33.2 G/DL (32.0-36.0) Red Cell Distribution Width 15.3 % (11.6-14.8) Platelet Count 256 K/UL (150-450) Mean Platelet Volume 6.8 FL (6.5-10.1) Neutrophils (%) (Auto) 79.7 % (45.0-75.0) Lymphocytes (%) (Auto) 12.0 % (20.0-45.0) Monocytes (%) (Auto) 5.8 % (1.0-10.0) Eosinophils (%) (Auto) 1.2 % (0.0-3.0) Basophils (%) (Auto) 1.3 % (0.0-2.0) Sodium Level 142 MMOL/L (136-145) Potassium Level 2.9 MMOL/L (3.5-5.1) Chloride Level 106 MMOL/L (98-107) Carbon Dioxide Level 25 MMOL/L (21-32) Anion Gap 11 mmol/L (5-15) Blood Urea Nitrogen 76 mg/dL (7-18) Creatinine 1.7 MG/DL (0.55-1.30) Estimat Glomerular Filtration Rate 40.5 mL/min (>60) Glucose Level 155 MG/DL (74-106) Calcium Level 8.6 MG/DL (8.5-10.1) Phosphorus Level 2.3 MG/DL (2.5-4.9) Magnesium Level 2.0 MG/DL (1.8-2.4) Total Bilirubin 0.4 MG/DL (0.2-1.0) Aspartate Amino Transf (AST/SGOT) 39 U/L (15-37) Alanine Aminotransferase (ALT/SGPT) 111 U/L (12-78) Alkaline Phosphatase 89 U/L (46-116) Total Protein 5.9 G/DL (6.4-8.2) Albumin 2.0 G/DL (3.4-5.0) Globulin 3.9 g/dL Albumin/Globulin Ratio 0.5 (1.0-2.7) D-Dimer 2.23 mg/L FEU (0.00-0.49) Test 08/12/20 00:33 08/12/20 05:40 08/12/20 06:10 08/12/20 12:20 POC Whole Blood Glucose 128 MG/DL (74-106) 118 MG/DL (74-106) 146 MG/DL (74-106) White Blood Count 16.8 K/UL (4.8-10.8) Red Blood Count 2.72 M/UL (4.70-6.10) Hemoglobin 8.5 G/DL (14.2-18.0) Hematocrit 26.3 % (42.0-52.0) Mean Corpuscular Volume 97 FL (80-99) Mean Corpuscular Hemoglobin 31.3 PG (27.0-31.0) Mean Corpuscular Hemoglobin Concent 32.4 G/DL (32.0-36.0) Red Cell Distribution Width 15.5 % (11.6-14.8) Platelet Count 266 K/UL (150-450) Mean Platelet Volume 6.1 FL (6.5-10.1) Neutrophils (%) (Auto) 84.5 % (45.0-75.0) Lymphocytes (%) (Auto) 9.2 % (20.0-45.0) Monocytes (%) (Auto) 5.5 % (1.0-10.0) Eosinophils (%) (Auto) 0.0 % (0.0-3.0) Basophils (%) (Auto) 0.8 % (0.0-2.0) Sodium Level 143 MMOL/L (136-145) Potassium Level 3.7 MMOL/L (3.5-5.1) Chloride Level 109 MMOL/L (98-107) Carbon Dioxide Level 24 MMOL/L (21-32) Anion Gap 10 mmol/L (5-15) Blood Urea Nitrogen 65 mg/dL (7-18) Creatinine 1.6 MG/DL (0.55-1.30) Estimat Glomerular Filtration Rate 43.5 mL/min (>60) Glucose Level 128 MG/DL (74-106) Calcium Level 9.2 MG/DL (8.5-10.1) Phosphorus Level 4.0 MG/DL (2.5-4.9) Magnesium Level 2.1 MG/DL (1.8-2.4) Total Bilirubin 0.5 MG/DL (0.2-1.0) Aspartate Amino Transf (AST/SGOT) 42 U/L (15-37) Alanine Aminotransferase (ALT/SGPT) 100 U/L (12-78) Alkaline Phosphatase 99 U/L (46-116) Total Protein 6.5 G/DL (6.4-8.2) Albumin 2.1 G/DL (3.4-5.0) Globulin 4.4 g/dL Albumin/Globulin Ratio 0.5 (1.0-2.7) Test 08/12/20 17:43 08/13/20 03:20 POC Whole Blood Glucose 151 MG/DL (74-106) White Blood Count 12.7 K/UL (4.8-10.8) Red Blood Count 2.77 M/UL (4.70-6.10) Hemoglobin 8.6 G/DL (14.2-18.0) Hematocrit 25.4 % (42.0-52.0) Mean Corpuscular Volume 92 FL (80-99) Mean Corpuscular Hemoglobin 31.1 PG (27.0-31.0) Mean Corpuscular Hemoglobin Concent 33.9 G/DL (32.0-36.0) Red Cell Distribution Width 16.6 % (11.6-14.8) Platelet Count 270 K/UL (150-450) Mean Platelet Volume 6.3 FL (6.5-10.1) Neutrophils (%) (Auto) 78.3 % (45.0-75.0) Lymphocytes (%) (Auto) 13.5 % (20.0-45.0) Monocytes (%) (Auto) 6.9 % (1.0-10.0) Eosinophils (%) (Auto) 0.1 % (0.0-3.0) Basophils (%) (Auto) 1.1 % (0.0-2.0) Sodium Level 144 MMOL/L (136-145) Potassium Level 3.4 MMOL/L (3.5-5.1) Chloride Level 109 MMOL/L (98-107) Carbon Dioxide Level 27 MMOL/L (21-32) Anion Gap 8 mmol/L (5-15) Blood Urea Nitrogen 64 mg/dL (7-18) Creatinine 1.7 MG/DL (0.55-1.30) Estimat Glomerular Filtration Rate 40.5 mL/min (>60) Glucose Level 143 MG/DL (74-106) Calcium Level 9.1 MG/DL (8.5-10.1) Phosphorus Level 4.3 MG/DL (2.5-4.9) Magnesium Level 2.3 MG/DL (1.8-2.4) Total Bilirubin 0.4 MG/DL (0.2-1.0) Aspartate Amino Transf (AST/SGOT) 35 U/L (15-37) Alanine Aminotransferase (ALT/SGPT) 89 U/L (12-78) Alkaline Phosphatase 104 U/L (46-116) Total Protein 6.4 G/DL (6.4-8.2) Albumin 2.1 G/DL (3.4-5.0) Globulin 4.3 g/dL Albumin/Globulin Ratio 0.5 (1.0-2.7) Random Vancomycin Level 20.3 ug/mL Height (Feet): 5 Height (Inches): 7.00 Weight (Pounds): 175 Objective Physical Exam General Appearance: lethargic Lines, tubes and drains: trach+++ vent++++ HEENT: normocephalic, atraumatic, mucous membranes moist Neck: normal alignment Respiratory/Chest: rhonchi - bilaterally Cardiovascular/Chest: normal peripheral pulses, regular rhythm Abdomen: soft, no mass, ++ feeding tube Extremities: no edema, no cyanosis Skin Exam: normal pigmentation, warm/dry Neurologic: unresponsiveness Fern Mak NP Aug 13, 2020 12:07
--- NOTE | 2020-08-13 13:10 | Pulmonology Progress Note ---
Subjective ROS Limited/Unobtainable: Yes Interval Events: No new events Constitutional: Reports: fatigue, other - trach and vent ; Denies: fever HEENT: Repors: no symptoms Respiratory: Reports: no symptoms Cardiovascular: Reports: no symptoms Gastrointestinal/Abdominal: Reports: diarrhea, other - + rectal tube ; Denies: nausea, vomiting Psychiatric: Reports: other - NA Skin: Denies: rash Musculoskeletal: Reports: other - NA Allergies: Coded Allergies: No Known Allergies (Unverified , 08/01/20) All Systems: reviewed and negative except above Objective Last 24 Hour Vital Signs Date Time Temp Pulse Resp B/P (MAP) Pulse Ox O2 Delivery O2 Flow Rate FiO2 08/13/20 12:00 97.0 105 23 152/98 (116) 100 08/13/20 08:58 100 186/93 08/13/20 08:00 30 08/13/20 08:00 97.2 83 16 184/98 (126) 97 08/13/20 08:00 Mechanical Ventilator 08/13/20 07:46 90 08/13/20 04:00 74 08/13/20 04:00 30 08/13/20 04:00 Mechanical Ventilator 08/13/20 04:00 97.9 83 17 158/95 (116) 97 08/13/20 00:25 84 16 30 08/13/20 00:00 Mechanical Ventilator 08/13/20 00:00 99.1 97 17 153/94 (113) 100 08/13/20 00:00 30 08/13/20 00:00 94 08/12/20 20:00 Mechanical Ventilator 08/12/20 20:00 77 08/12/20 20:00 97.6 74 16 149/83 (105) 100 08/12/20 20:00 30 08/12/20 19:28 82 18 30 08/12/20 17:40 81 154/88 08/12/20 16:00 30 08/12/20 16:00 Mechanical Ventilator 08/12/20 16:00 98.2 85 16 143/83 (103) 100 08/12/20 15:35 79 16 30 08/12/20 15:35 81 Intake and Output0 08/12/20 08/13/20 19:00 07:00 Intake Total 200 ml 560 ml Output Total 900 ml Balance 200 ml -340 ml Intake Free Water 120 ml Tube Feeding 200 ml 440 ml Output Urine Total 600 ml Stool Total 300 ml Objective saturating well on current vent setting; s/p G tube General Appearance: WD/WN HEENT: normocephalic, status post trach Respiratory: chest wall non-tender Cardiovascular: normal peripheral pulses, normal rate Abdomen: normal bowel sounds Laboratory Tests 08/12/20 17:43: POC Whole Blood Glucose 151H 08/13/20 03:20: White Blood Count 12.7H, Red Blood Count 2.77L, Hemoglobin 8.6L, Hematocrit 25.4L, Mean Corpuscular Volume 92, Mean Corpuscular Hemoglobin 31.1H, Mean Corpuscular Hemoglobin Concent 33.9, Red Cell Distribution Width 16.6H, Platelet Count 270, Mean Platelet Volume 6.3L, Neutrophils (%) (Auto) 78.3H, Lymphocytes (%) (Auto) 13.5L, Monocytes (%) (Auto) 6.9, Eosinophils (%) (Auto) 0.1, Basophils (%) (Auto) 1.1, Sodium Level 144, Potassium Level 3.4L, Chloride Level 109H, Carbon Dioxide Level 27, Anion Gap 8, Blood Urea Nitrogen 64H, Creatinine 1.7H, Estimat Glomerular Filtration Rate 40.5, Glucose Level 143H, Calcium Level 9.1, Phosphorus Level 4.3, Magnesium Level 2.3, Total Bilirubin 0.4, Aspartate Amino Transf (AST/SGOT) 35, Alanine Aminotransferase (ALT/SGPT) 89H, Alkaline P hosphatase 104, Total Protein 6.4, Albumin 2.1L, Globulin 4.3, Albumin/Globulin Ratio 0.5L, Random Vancomycin Level 20.3 Current Medications Medications (Trade) Dose Ordered Sig/Maegan Route PRN Reason Start Time Stop Time Status Last Admin Dose Admin Acetaminophen (Tylenol) 650 mg Q4H PRN GT For Pain 08/02/20 15:45 09/01/20 15:44 08/03/20 02:13 Acetaminophen (Tylenol) 650 mg Q4H PRN GT Temp >100.5 08/02/20 15:45 09/01/20 15:44 Calcium Acetate (Phoslo) 1,334 mg TIAC GT 08/09/20 16:30 11/03/20 11:29 08/13/20 11:53 Chlorhexidine Gluconate (Deisy-Hex 2%) 1 applic BIOTEC TOPIC 08/02/20 21:00 10/31/20 20:59 08/12/20 21:22 Dextrose 1,000 ml @ 0 mls/hr Q0M IV 08/02/20 09:15 09/01/20 09:14 Gadobutrol (Gadavist) 7.5 mmol NOW PRN IV Radiology Procedure 08/12/20 20:45 08/16/20 20:44 Heparin Sodium (Porcine) (Heparin 5000 units/ml) 5,000 units EVERY 12 HOURS SUBQ 08/02/20 21:00 09/16/20 20:59 08/13/20 08:56 Hydralazine HCl (Apresoline) 10 mg Q4H PRN IV sbp >160 08/11/20 13:45 11/09/20 13:44 08/11/20 14:06 Lansoprazole (Prevacid) 30 mg DAILY GT 08/10/20 09:00 09/09/20 08:59 08/13/20 08:52 Metoclopramide HCl (Reglan) 10 mg Q6H PRN IVP Nausea & Vomiting 08/05/20 14:15 09/04/20 14:14 08/07/20 04:38 Metoprolol Tartrate (Lopressor) 50 mg BID GT 08/12/20 18:00 11/07/20 05:59 08/13/20 08:58 Piperacillin Sod/ Tazobactam Sod 3.375 gm/Sodium Chloride 110 ml @ 27.5 mls/hr EVERY 8 HOURS IVPB 08/09/20 22:00 08/14/20 21:59 08/13/20 06:08 Vancomycin HCl (Vanco pharmacy to dose) 1 ea DAILY PRN MISC Per rx protocol 08/09/20 18:30 09/08/20 18:29 Assessment/Plan Assessment/Plan 1. Chronic respiratory failure. Chronic tracheostomy 2. Metabolic acidosis. On hemodialysis 3. Renal failure. HD per renal 4. Leukocytosis. 5. Sepsis. Source unclear; C dif negative; CXR clear DISCUSSION: Agree with broad spectrum antibiotics. We will continue AC mode. Currently FiO2 30%; PEEP 5 Discontinued bicarbonate supplementation. Noted plans for HD Hemodynamically stable We will follow carefully. Stool OB positive CXR 08/11 shows mild atelectasis D dimer 2.35; lower than prior Doubt embolic phenomenon The care for this patient was discussed with my supervising physician Time spent for this case was approximately 31 minutes Jarek Campos Aug 13, 2020 13:10
--- NOTE | 2020-08-13 13:24 | Surgery Progress Note ---
Surgery Progress Note Subjective Procedure Performed right femoral temporary hemodialysis catheter insertion Additional Comments afebrile, HD stable, labs stable comfortable no complaints Objective Last 24 Hour Vital Signs Date Time Temp Pulse Resp B/P (MAP) Pulse Ox O2 Delivery O2 Flow Rate FiO2 08/13/20 12:00 97.0 105 23 152/98 (116) 100 08/13/20 08:58 100 186/93 08/13/20 08:00 30 08/13/20 08:00 97.2 83 16 184/98 (126) 97 08/13/20 08:00 Mechanical Ventilator 08/13/20 07:46 90 08/13/20 04:00 74 08/13/20 04:00 30 08/13/20 04:00 Mechanical Ventilator 08/13/20 04:00 97.9 83 17 158/95 (116) 97 08/13/20 00:25 84 16 30 08/13/20 00:00 Mechanical Ventilator 08/13/20 00:00 99.1 97 17 153/94 (113) 100 08/13/20 00:00 30 08/13/20 00:00 94 08/12/20 20:00 Mechanical Ventilator 08/12/20 20:00 77 08/12/20 20:00 97.6 74 16 149/83 (105) 100 08/12/20 20:00 30 08/12/20 19:28 82 18 30 08/12/20 17:40 81 154/88 08/12/20 16:00 30 08/12/20 16:00 Mechanical Ventilator 08/12/20 16:00 98.2 85 16 143/83 (103) 100 08/12/20 15:35 79 16 30 08/12/20 15:35 81 I&O Intake and Output 08/12/20 08/13/20 18:59 06:59 Intake Total 160 ml 600 ml Output Total 900 ml Balance 160 ml -300 ml Intake Free Water 120 ml Tube Feeding 160 ml 480 ml Output Urine Total 600 ml Stool Total 300 ml Dressing: saturated Cardiovascular: RSR Respiratory: decreased breath sounds Abdomen: non-tender, present bowel sounds, non-distended Extremities: no tenderness, no cyanosis Laboratory Tests Test 08/12/20 17:43 08/13/20 03:20 POC Whole Blood Glucose 151 MG/DL (74-106) H White Blood Count 12.7 K/UL (4.8-10.8) H Red Blood Count 2.77 M/UL (4.70-6.10) L Hemoglobin 8.6 G/DL (14.2-18.0) L Hematocrit 25.4 % (42.0-52.0) L Mean Corpuscular Volume 92 FL (80-99) Mean Corpuscular Hemoglobin 31.1 PG (27.0-31.0) H Mean Corpuscular Hemoglobin Concent 33.9 G/DL (32.0-36.0) Red Cell Distribution Width 16.6 % (11.6-14.8) H Platelet Count 270 K/UL (150-450) Mean Platelet Volume 6.3 FL (6.5-10.1) L Neutrophils (%) (Auto) 78.3 % (45.0-75.0) H Lymphocytes (%) (Auto) 13.5 % (20.0-45.0) L Monocytes (%) (Auto) 6.9 % (1.0-10.0) Eosinophils (%) (Auto) 0.1 % (0.0-3.0) Basophils (%) (Auto) 1.1 % (0.0-2.0) Sodium Level 144 MMOL/L (136-145) Potassium Level 3.4 MMOL/L (3.5-5.1) L Chloride Level 109 MMOL/L (98-107) H Carbon Dioxide Level 27 MMOL/L (21-32) Anion Gap 8 mmol/L (5-15) Blood Urea Nitrogen 64 mg/dL (7-18) H Creatinine 1.7 MG/DL (0.55-1.30) H Estimat Glomerular Filtration Rate 40.5 mL/min (>60) Glucose Level 143 MG/DL (74-106) H Calcium Level 9.1 MG/DL (8.5-10.1) Phosphorus Level 4.3 MG/DL (2.5-4.9) Magnesium Level 2.3 MG/DL (1.8-2.4) Total Bilirubin 0.4 MG/DL (0.2-1.0) Aspartate Amino Transf (AST/SGOT) 35 U/L (15-37) Alanine Aminotransferase (ALT/SGPT) 89 U/L (12-78) H Alkaline Phosphatase 104 U/L (46-116) Total Protein 6.4 G/DL (6.4-8.2) Albumin 2.1 G/DL (3.4-5.0) L Globulin 4.3 g/dL Albumin/Globulin Ratio 0.5 (1.0-2.7) L Random Vancomycin Level 20.3 ug/mL Plan Problems: (1) Respiratory distress (2) Renal failure Assessment & Plan: plan HD line soon temp hd consent from daughter (3) Metabolic acidosis (4) NSTEMI (non-ST elevated myocardial infarction) (5) Sepsis Assessment & Plan: okay for tf iv fluids vent via trach weaning vent g tube okay decubitus eval done and local care provided labs noted acidosis plan HD cont abx as per ID will follow with recs thank you DAILY ESTIMATED NEEDS: Needs based on Critical care, wound, AUNDREA/ 62.7kg 22-28 kcals/kg [id number] total kcals 0.8-1.25 (increase w/ renal fxn improvement) g protein/kg 50-78 g total protein 20-25 mL/kg [id number] total fluid mLs NUTRITION DIAGNOSIS: Swallowing difficulty R/T respiratory failure as evidenced by trach/vent dep, PEG dep. CURRENT TF: NPO ENTERAL NUTRITION RECOMMENDATIONS: Nepro @ 35ml/hr x 24 hrs to provide 840ml, 1512kcal, 68g prot, 611ml free water * As medically appropriate, initiate Nepro, rec goal rate of 35ml/hr x 24 hrs * HOB over 30 degrees/ water flush per MD ADDITIONAL RECOMMENDATIONS: * Per [facility]: HT=68" and NR=593ven -> daily calibrated bedscale wt * Monitor renal fxn and lytes, ability to increase est prot needs * NISS w/ TF -> h/o DM * Probiotics for diarrhea * Wound healing: Add Nephrovite x 1, ZnSO4 220mg QD x 10 days Kenji BID w/ TF Rohit Brand Aug 13, 2020 13:24
[2020-08-13 16:00] VITALS: BP 161/91
--- NOTE | 2020-08-13 16:03 | Nephrology Progress Note ---
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 per daughter #Uremia #Anemia #Pneumonia #sepsis - lasix 60 IV today - replete - for now hold off HD- Cr seems to be stabilizing -ok to remove HD catheter - monitor labs - add sevelamer - monitor ABG - antibiotics per ID - avoid nephrotoxins - monitor UOP - monitor electrolytes time spent 65 min Subjective ROS Limited/Unobtainable: Yes Subjective Cr stable replete k lasix 60 IV ok to remove HD catheter Objective Objective Last 24 Hour Vital Signs Date Time Temp Pulse Resp B/P (MAP) Pulse Ox O2 Delivery O2 Flow Rate FiO2 08/13/20 12:00 30 08/13/20 12:00 97.0 105 23 152/98 (116) 100 08/13/20 12:00 Mechanical Ventilator 08/13/20 08:58 100 186/93 08/13/20 08:00 30 08/13/20 08:00 97.2 83 16 184/98 (126) 97 08/13/20 08:00 Mechanical Ventilator 08/13/20 07:46 90 08/13/20 04:00 74 08/13/20 04:00 30 08/13/20 04:00 Mechanical Ventilator 08/13/20 04:00 97.9 83 17 158/95 (116) 97 08/13/20 00:25 84 16 30 08/13/20 00:00 Mechanical Ventilator 08/13/20 00:00 99.1 97 17 153/94 (113) 100 08/13/20 00:00 30 08/13/20 00:00 94 08/12/20 20:00 Mechanical Ventilator 08/12/20 20:00 77 08/12/20 20:00 97.6 74 16 149/83 (105) 100 08/12/20 20:00 30 08/12/20 19:28 82 18 30 08/12/20 17:40 81 154/88 Intake and Output 08/12/20 08/13/20 19:00 07:00 Intake Total 200 ml 560 ml Output Total 900 ml Balance 200 ml -340 ml Intake Free Water 120 ml Tube Feeding 200 ml 440 ml Output Urine Total 600 ml Stool Total 300 ml Laboratory Tests 08/12/20 17:43: POC Whole Blood Glucose 151H 08/13/20 03:20: White Blood Count 12.7H, Red Blood Count 2.77L, Hemoglobin 8.6L, Hematocrit 25.4L, Mean Corpuscular Volume 92, Mean Corpuscular Hemoglobin 31.1H, Mean Corpuscular Hemoglobin Concent 33.9, Red Cell Distribution Width 16.6H, Platelet Count 270, Mean Platelet Volume 6.3L, Neutrophils (%) (Auto) 78.3H, Lymphocytes (%) (Auto) 13.5L, Monocytes (%) (Auto) 6.9, Eosinophils (%) (Auto) 0.1, Basophils (%) (Auto) 1.1, Sodium Level 144, Potassium Level 3.4L, Chloride Level 109H, Carbon Dioxide Level 27, Anion Gap 8, Blood Urea Nitrogen 64H, Creatinine 1.7H, Estimat Glomerular Filtration Rate 40.5, Glucose Level 143H, Calcium Level 9.1, Phosphorus Level 4.3, Magnesium Level 2.3, Total Bilirubin 0.4, Aspartate Amino Transf (AST/SGOT) 35, Alanine Aminotransferase (ALT/SGPT) 89H, Alkaline Phosphatase 104, Total Protein 6.4, Albumin 2.1L, Globulin 4.3, Albumin/Globulin Ratio 0.5L, Random Vancomycin Level 20.3 Height (Feet): 5 Height (Inches): 7.00 Weight (Pounds): 175 Objective General Appearance: other - non interactive Cardiovascular: normal rate, regular rhythm Respiratory/Chest: no respiratory distress, other - Trach on Vent Abdomen: soft, other - Rectal tube in place Extremities: other - bedbound Neurologic: other - non interactive at baseline Skin: warm/dry Gladys Sherman M.D. Aug 13, 2020 16:03
--- NOTE | 2020-08-13 17:43 | Cardiac Electrophysiology PN ---
Assessment/Plan Assessment/Plan 1. Troponin elevation. Levels are coming down at 0.8 to 0.5. Due to renal failure with BUN of 343, creatinine of 4.1 as well as sepsis with white count of 22,000. His EKG also shows sinus rhythm with inferolateral ischemia. On Lopressor 12.5 bid. 2. Shortness of breath with respiratory failure, status post tracheostomy, on the ventilator with 30% FiO2. 3. Dysphagia, status post PEG placement. 4. S/P Acute renal failure with BUN of 343, creatinine of 4.1. S/P Right IJ Nicholas catheter 08/07. Removal is now pending Had first HD on 08/03. No more dialysis for now as BUN 65 and Cr 1.6 5. Diabetes. 6. History of left thalamic hemorrhage. Subjective Subjective Awaiting removal of the Right IJ Nicholas catheter since no more need for HD. On the vent with 30% Fio2 via trach. HR 100s Objective Last 24 Hour Vital Signs Date Time Temp Pulse Resp B/P (MAP) Pulse Ox O2 Delivery O2 Flow Rate FiO2 08/13/20 16:00 Mechanical Ventilator 08/13/20 16:00 97.5 85 17 161/91 (114) 100 08/13/20 16:00 30 08/13/20 15:24 75 08/13/20 12:01 89 08/13/20 12:00 30 08/13/20 12:00 97.0 105 23 152/98 (116) 100 08/13/20 12:00 Mechanical Ventilator 08/13/20 08:58 100 186/93 08/13/20 08:00 30 08/13/20 08:00 97.2 83 16 184/98 (126) 97 08/13/20 08:00 Mechanical Ventilator 08/13/20 07:46 90 08/13/20 04:00 74 08/13/20 04:00 30 08/13/20 04:00 Mechanical Ventilator 08/13/20 04:00 97.9 83 17 158/95 (116) 97 08/13/20 00:25 84 16 30 08/13/20 00:00 Mechanical Ventilator 08/13/20 00:00 99.1 97 17 153/94 (113) 100 08/13/20 00:00 30 08/13/20 00:00 94 08/12/20 20:00 Mechanical Ventilator 08/12/20 20:00 77 08/12/20 20:00 97.6 74 16 149/83 (105) 100 08/12/20 20:00 30 08/12/20 19:28 82 18 30 Intake and Output 08/12/20 08/13/20 19:00 07:00 Intake Total 200 ml 560 ml Output Total 900 ml Balance 200 ml -340 ml Intake Free Water 120 ml Tube Feeding 200 ml 440 ml Output Urine Total 600 ml Stool Total 300 ml Laboratory Tests Test 08/12/20 17:43 08/13/20 03:20 POC Whole Blood Glucose 151 MG/DL (74-106) H White Blood Count 12.7 K/UL (4.8-10.8) H Red Blood Count 2.77 M/UL (4.70-6.10) L Hemoglobin 8.6 G/DL (14.2-18.0) L Hematocrit 25.4 % (42.0-52.0) L Mean Corpuscular Volume 92 FL (80-99) Mean Corpuscular Hemoglobin 31.1 PG (27.0-31.0) H Mean Corpuscular Hemoglobin Concent 33.9 G/DL (32.0-36.0) Red Cell Distribution Width 16.6 % (11.6-14.8) H Platelet Count 270 K/UL (150-450) Mean Platelet Volume 6.3 FL (6.5-10.1) L Neutrophils (%) (Auto) 78.3 % (45.0-75.0) H Lymphocytes (%) (Auto) 13.5 % (20.0-45.0) L Monocytes (%) (Auto) 6.9 % (1.0-10.0) Eosinophils (%) (Auto) 0.1 % (0.0-3.0) Basophils (%) (Auto) 1.1 % (0.0-2.0) Sodium Level 144 MMOL/L (136-145) Potassium Level 3.4 MMOL/L (3.5-5.1) L Chloride Level 109 MMOL/L (98-107) H Carbon Dioxide Level 27 MMOL/L (21-32) Anion Gap 8 mmol/L (5-15) Blood Urea Nitrogen 64 mg/dL (7-18) H Creatinine 1.7 MG/DL (0.55-1.30) H Estimat Glomerular Filtration Rate 40.5 mL/min (>60) Glucose Level 143 MG/DL (74-106) H Calcium Level 9.1 MG/DL (8.5-10.1) Phosphorus Level 4.3 MG/DL (2.5-4.9) Magnesium Level 2.3 MG/DL (1.8-2.4) Total Bilirubin 0.4 MG/DL (0.2-1.0) Aspartate Amino Transf (AST/SGOT) 35 U/L (15-37) Alanine Aminotransferase (ALT/SGPT) 89 U/L (12-78) H Alkaline Phosphatase 104 U/L (46-116) Total Protein 6.4 G/DL (6.4-8.2) Albumin 2.1 G/DL (3.4-5.0) L Globulin 4.3 g/dL Albumin/Globulin Ratio 0.5 (1.0-2.7) L Random Vancomycin Level 20.3 ug/mL Objective HEAD AND NECK: Status post tracheostomy with no JVD. LUNGS: Coarse rhonchi. CARDIOVASCULAR: Regular S1 and S2 with no gallop. ABDOMEN: Status post G-tube. EXTREMITIES: No pitting edema. Gregorio Mari MD Aug 13, 2020 17:43
--- NOTE | 2020-08-13 18:11 | General Progress Note ---
Subjective Date patient seen: Aug 13, 2020 Allergies: Coded Allergies: No Known Allergies (Unverified , 08/01/20) Subjective No acute events overnight per nursing. Neuro status is stable. No new changes. Still making good urine. Creatinine is stable. CT head showing possible mass versus resolving hematoma and thalamus. MRI ordered by neurology. Vent settings stable ROS unable to obtain due to ALOC Objective Last 24 Hour Vital Signs Date Time Temp Pulse Resp B/P (MAP) Pulse Ox O2 Delivery O2 Flow Rate FiO2 08/13/20 17:49 85 161/91 08/13/20 16:00 Mechanical Ventilator 08/13/20 16:00 97.5 85 17 161/91 (114) 100 08/13/20 16:00 30 08/13/20 15:24 75 08/13/20 12:01 89 08/13/20 12:00 30 08/13/20 12:00 97.0 105 23 152/98 (116) 100 08/13/20 12:00 Mechanical Ventilator 08/13/20 08:58 100 186/93 08/13/20 08:00 30 08/13/20 08:00 97.2 83 16 184/98 (126) 97 08/13/20 08:00 Mechanical Ventilator 08/13/20 07:46 90 08/13/20 04:00 74 08/13/20 04:00 30 08/13/20 04:00 Mechanical Ventilator 08/13/20 04:00 97.9 83 17 158/95 (116) 97 08/13/20 00:25 84 16 30 08/13/20 00:00 Mechanical Ventilator 08/13/20 00:00 99.1 97 17 153/94 (113) 100 08/13/20 00:00 30 08/13/20 00:00 94 08/12/20 20:00 Mechanical Ventilator 08/12/20 20:00 77 08/12/20 20:00 97.6 74 16 149/83 (105) 100 08/12/20 20:00 30 08/12/20 19:28 82 18 30 Intake and Output 08/12/20 08/13/20 19:00 07:00 Intake Total 200 ml 600 ml Output Total 900 ml Balance 200 ml -300 ml Intake Free Water 120 ml Tube Feeding 200 ml 480 ml Output Urine Total 600 ml Stool Total 300 ml Laboratory Tests 08/13/20 03:20: White Blood Count 12.7H, Red Blood Count 2.77L, Hemoglobin 8.6L, Hematocrit 25.4L, Mean Corpuscular Volume 92, Mean Corpuscular Hemoglobin 31.1H, Mean Corpuscular Hemoglobin Concent 33.9, Red Cell Distribution Width 16.6H, Platelet Count 270, Mean Platelet Volume 6.3L, Neutrophils (%) (Auto) 78.3H, Lymphocytes (%) (Auto) 13.5L, Monocytes (%) (Auto) 6.9, Eosinophils (%) (Auto) 0.1, Basophils (%) (Auto) 1.1, Sodium Level 144, Potassium Level 3.4L, Chloride Level 109H, Carbon Dioxide Level 27, Anion Gap 8, Blood Urea Nitrogen 64H, Creatinine 1.7H, Estimat Glomerular Filtration Rate 40.5, Glucose Level 143H, Calcium Level 9.1, Phosphorus Level 4.3, Magnesium Level 2.3, Total Bilirubin 0.4, Aspartate Amino Transf (AST/SGOT) 35, Alanine Aminotransferase (ALT/SGPT) 89H, Alkaline Phosphatase 104, Total Protein 6.4, Albumin 2.1L, Globulin 4.3, Albumin/Globulin Ratio 0.5L, Random Vancomycin Level 20.3 Height (Feet): 5 Height (Inches): 7.00 Weight (Pounds): 175 Objective General: Chronic trach/vent dependent male. Alert, not oriented HEENT: Normocephalic cephalic atraumatic, pupils equal round reactive to light and accommodation, nares patent and no symmetrical, no tonsillar exudates, mucous membranes moist + trach in place CV: Regular rate regular rhythm, no murmurs, rubs, or gallops Pulm: Lungs clear to auscultation bilaterally. No wheezes, rhonchi, or rales GI: Soft, nontender, nondistended, bowel sounds present Neuro: CN 2-12 intact bilaterally, no focal signs. UE and LE flaccid. Minimal response (baseline). Does not track. Ext: No lower extremity edema bilaterally + some UE and LE swelling bilaterally trace to 1+ Skin: no rashes lesions or ulcers Msk: Joints symmetrical in upper extremity and lower extremity bilaterally, no joint swelling. Lymph: No lymphadenopathy in upper extremity and lower extremity Assessment/Plan Assessment/Plan: #Acute on Chronic Resp Failure/Trach and Vent Dependent > Possible pneumoni on recent CXR- reviewed #Sepsis- Unclear Source, Rule out VAP #leukocytosis - worsening #elevated D-dimer > Afebrile. ? UTI - Appreciate ID recommendations: [place] - Appreciate Pulm recommendations: Dr. Lee - ABX per ID - Vanc per pharm (08/09 - ) - Zosyn (08/09 - ) - CT chest, abd, pelvis non contrast per ID: Reviewed. No acute process. No pneumonia. - Check Venous duplex UE and LE bilaterally: Negative - Consider VQ scan although vent setting stable- defer to pulm -> Repeat D-dimer -> Downtrending. Defer pulmonary imaging to pulm. 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 hematoma Appreciate Neurology; Supportive Measures, Frequent Turning, Monitor for pressure ulcers Continue PEG tube care/Tube Feedings per Nutrition recs - CT head today: reviewed -MRI brain w/wo con ordered by neurology. Ok for contrast per nephrology - D/w Dr. Hale #Acute Renal Failure requiring HD #Associated AGMA #hypokalemia- replete PRN - Appreciate Nephro-Pirouz - Renal function is improving, can likely d/c HD -Monitor urine output -Avoid Nephrotoxic Agents -Phosphlo/Renvela - will remove IJ line soon #Hypertension - Metorpolol 50mg BID - Hydralazine PRN - Appreciate cardiology consult - Appreciate nephrology consult #NSTEMI-Demand Ischemia -Appreciate Dr. Mari- Troponins Trended -Stable - no acute interventions #POsitive Stool OB > no active bleeding - GI consult: Dr. Godoy #DMII Weight based insulin dosing; goal blood sugar less than 180 , Add long acting prn FENPPX DVTPPX: HSQ Fluids: per nephro Diet: tube feedings Lines: HD line PT/OT: pending Code status: Full Dispo: Rehab eventually Reason for Continued Hospitalization: Sepsis MIPS (Merit-based Incentive Payment System) Applicable CPT: 65859, 96934 CHECK ALL THAT ARE MET: [] Measure #5 (CHF): All ages. Prescribe RAGINI/ARB upon discharge for patients with left ventricular systolic dysfunction. If not, the reason is clearly documented in the medical chart [] Measure #8 (CHF): All ages. Prescribe a beta herbie upon discharge for patients with left ventricular systolic dysfunction. If not, the reason is clearly documented in the medical chart. [] Measure #47: Advance care plan or surrogate decision maker documented in the medical record. [x] Measure #130 The provider has documented, updated, or reviewed the patients current medication list and has documented it in the patients note. [x] Measure #374 (All): Send report to referring provider. [] Measure #407(Sepsis due to MSSA bacteremia): Age 18+ Patient treated with a beta-lactam antibiotic (Nafcillin, Oxacillin or Cefazolin) as definitive therapy. MEDICAL COMPLEXITYHigh complexity medical decision making (need 2/3 categories)Problem - need 4 points [x]Acute/new problem with new plan for workup (4 points, 1 max) [] Acute/new problem without additional workup (3 points, 1 max) [x] Unstable chronic problem actively being managed (2 point each, 2 max) [x] Stable chronic problem actively being managed (1 point each, 2 max) [] Self-limited/transient process (constipation, muscle ache, etc) (1 point each, 2 max) Data - need 4 points [x] Reviewed labs/imaging studies (1 points, 2 max) [x] Independent review of imaging (EKG, xrays, etc) (2 points, 2 max) [x] Discussed case with consult/other MD/RN (2 points, 2 max) High Risk - qualify if have one of the following: [x] Severe exacerbation of acute problem, acute mental status change, IV narcotics, monitoring drug levels (vancomycin, INR, tacrolimus etc) I spent 38 minutes on this patient's case, and 23 mins was dedicated to counseling and/or care coordination. Discussed with ID, GI, neurology, RN Time of note may not reflect time of encounter Fredrick Silva D.O. Aug 13, 2020 18:11
[2020-08-13 20:00] VITALS: BP 200/114
[2020-08-13] MEDS ORDERED: HydrALAZINE 25mg tab GT SCH (20:15)
[2020-08-13] MEDS: Dyna-Hex 2% Top Sol 2oz TOPIC SCH (20:21)
--- NOTE | 2020-08-13 22:49 | Infectious Diseases Prog Note ---
Assessment/Plan Assessment/Plan ASSESSMENT AND PLAN: 1. sepsis, fevers and leukocytosis acinetobacter/enterobacter pneumonia/tracheobronchitis CT without abscess - zosyn and levofloxacin - monitor labs and chest x-ray 2. Trach, vent. 3. Dysphagia, on G-tube. 4. 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 5. Diabetes. 6. Hypertension. 7. Blood sugar and blood pressure treatment per primary care team. 8. Acute renal failure. 9. Anemia. 10. Respiratory failure. 11. GERD. 12. Vent dependency. 13. No allergies. 14. Social history is negative. 15. Family history noncontributory. 16. MAR was noted. 17. Case was discussed with RN. Subjective Constitutional: Reports: fatigue, other - + trach and vent ; Denies: fever HEENT: Reports: congestion Respiratory: Reports: shortness of breath Cardiovascular: Reports: other - no pressors Gastrointestinal/Abdominal: Reports: diarrhea, other - + rectal tube ; Denies: nausea, vomiting Genitourinary: Reports: other - + mota Neurologic: Reports: weakness Psychiatric: Reports: other - NA Skin: Denies: rash Hematologic: Denies: bleeding Musculoskeletal: Reports: other - NA Allergies: Coded Allergies: No Known Allergies (Unverified , 08/01/20) Objective Last 24 Hour Vital Signs Date Time Temp Pulse Resp B/P (MAP) Pulse Ox O2 Delivery O2 Flow Rate FiO2 08/13/20 20:21 200/114 08/13/20 20:00 Mechanical Ventilator 08/13/20 20:00 78 08/13/20 20:00 97.9 86 16 200/114 (142) 100 08/13/20 20:00 30 08/13/20 19:30 82 16 30 08/13/20 17:49 85 161/91 08/13/20 16:00 Mechanical Ventilator 08/13/20 16:00 97.5 85 17 161/91 (114) 100 08/13/20 16:00 30 08/13/20 15:24 75 08/13/20 13:28 89 16 30 08/13/20 12:01 89 08/13/20 12:00 30 08/13/20 12:00 97.0 105 23 152/98 (116) 100 08/13/20 12:00 Mechanical Ventilator 08/13/20 08:58 100 186/93 08/13/20 08:00 30 08/13/20 08:00 97.2 83 16 184/98 (126) 97 08/13/20 08:00 Mechanical Ventilator 08/13/20 07:46 90 08/13/20 07:34 92 16 30 08/13/20 04:00 74 08/13/20 04:00 30 08/13/20 04:00 Mechanical Ventilator 08/13/20 04:00 97.9 83 17 158/95 (116) 97 08/13/20 00:25 84 16 30 08/13/20 00:00 Mechanical Ventilator 08/13/20 00:00 99.1 97 17 153/94 (113) 100 08/13/20 00:00 30 08/13/20 00:00 94 Height (Feet): 5 Height (Inches): 7.00 Weight (Pounds): 175 General Appearance: no acute distress HEENT: no JVD, status post trach Respiratory/Chest: crackles/rales, rhonchi - bilaterally Cardiovascular: normal rate, regular rhythm, no gallop/murmur Abdomen: normal bowel sounds, soft, non tender, no organomegaly Genitourinary: other - + mota Extremities: no cyanosis Skin: no rash Neurologic/Psychiatric: lead installer II-XII grossly normal, alert, responsive Lymphatic: no neck adenopathy Musculoskeletal: no effusion Chest x-ray - 08/03/20 - Procedure: XRAY Chest 1v Indication: Shortness of breath Technique: One view of the chest Comparison: 08/01/2020 Findings: Lungs and pleural spaces are clear. Heart size is normal. Tracheostomy again demonstrated. Findings are unchanged Impression: No acute process Chest x-ray - 08/09/20 - Procedure: XRAY Chest 1v Indication: Shortness of breath Technique: One view of the chest Comparison: 08/07/2020 Findings: Jugular temporary dialysis catheter is again demonstrated. There is some hazy very focal infiltrate in the left infrahilar region. The remainder of the lungs and pleural spaces remain clear. Impression: Very focal left infrahilar infiltrate, new since prior study, may indicate early pneumonia CT chest/abdomen and pelvis: IMPRESSION: No definite acute abnormality Lungs demonstrate posterior dependent atelectatic changes and a left upper lobe calcified granuloma Cardiomegaly Tracheostomy, temporary dialysis catheter, rectal tube, gastrostomy noted Moderate retained stool, could indicate constipation Empty bladder with a Mota catheter.. Bladder wall thickening. This could be an artifact of lack of distention, but the possibility of cystitis should also be considered. Correlate with clinical and laboratory findings Mild prostatomegaly Slight edema of the bilateral hip and subcutaneous fat Incidental finding of bilateral renal cysts Chest x-ray - 08/11/20: COMPARISON: Chest CT scan August 10, 2020. FINDINGS/IMPRESSION: Midline tracheostomy tube. Right IJ catheter terminates in the SVC. EKG leads overlie the patient. No focal consolidation, pleural effusion, or pneumothorax. Mild atelectasis within the lower lung johnson. The heart size is prominent. Degenerative changes of the spine. Microbiology Date/Time Source Procedure Growth Status 08/10/20 11:20 Nasopharynx SARS-CoV-2 RdRp Gene Assay - Final Complete 08/10/20 03:25 Blood Blood Culture - Preliminary NO GROWTH AFTER 48 HOURS Resulted 08/09/20 23:00 Urine,Clean Catch Urine Culture - Final NO GROWTH AFTER 48 HOURS Complete 08/02/20 05:00 Rectum VRE Culture - Final NO VANCOMYCIN RESISTANT ENTEROCOCCUS ... Complete 08/02/20 05:00 Stool Clostridium difficile Toxin Assay - Final Complete Laboratory Tests Test 08/13/20 03:20 White Blood Count 12.7 K/UL (4.8-10.8) H Red Blood Count 2.77 M/UL (4.70-6.10) L Hemoglobin 8.6 G/DL (14.2-18.0) L Hematocrit 25.4 % (42.0-52.0) L Mean Corpuscular Volume 92 FL (80-99) Mean Corpuscular Hemoglobin 31.1 PG (27.0-31.0) H Mean Corpuscular Hemoglobin Concent 33.9 G/DL (32.0-36.0) Red Cell Distribution Width 16.6 % (11.6-14.8) H Platelet Count 270 K/UL (150-450) Mean Platelet Volume 6.3 FL (6.5-10.1) L Neutrophils (%) (Auto) 78.3 % (45.0-75.0) H Lymphocytes (%) (Auto) 13.5 % (20.0-45.0) L Monocytes (%) (Auto) 6.9 % (1.0-10.0) Eosinophils (%) (Auto) 0.1 % (0.0-3.0) Basophils (%) (Auto) 1.1 % (0.0-2.0) Sodium Level 144 MMOL/L (136-145) Potassium Level 3.4 MMOL/L (3.5-5.1) L Chloride Level 109 MMOL/L (98-107) H Carbon Dioxide Level 27 MMOL/L (21-32) Anion Gap 8 mmol/L (5-15) Blood Urea Nitrogen 64 mg/dL (7-18) H Creatinine 1.7 MG/DL (0.55-1.30) H Estimat Glomerular Filtration Rate 40.5 mL/min (>60) Glucose Level 143 MG/DL (74-106) H Calcium Level 9.1 MG/DL (8.5-10.1) Phosphorus Level 4.3 MG/DL (2.5-4.9) Magnesium Level 2.3 MG/DL (1.8-2.4) Total Bilirubin 0.4 MG/DL (0.2-1.0) Aspartate Amino Transf (AST/SGOT) 35 U/L (15-37) Alanine Aminotransferase (ALT/SGPT) 89 U/L (12-78) H Alkaline Phosphatase 104 U/L (46-116) Total Protein 6.4 G/DL (6.4-8.2) Albumin 2.1 G/DL (3.4-5.0) L Globulin 4.3 g/dL Albumin/Globulin Ratio 0.5 (1.0-2.7) L Random Vancomycin Level 20.3 ug/mL Current Medications Medications (Trade) Dose Ordered Sig/Maegan Route PRN Reason Start Time Stop Time Status Last Admin Dose Admin Acetaminophen (Tylenol) 650 mg Q4H PRN GT For Pain 08/02/20 15:45 09/01/20 15:44 08/03/20 02:13 Acetaminophen (Tylenol) 650 mg Q4H PRN GT Temp >100.5 08/02/20 15:45 09/01/20 15:44 Calcium Acetate (Phoslo) 1,334 mg TIAC GT 08/09/20 16:30 11/03/20 11:29 08/13/20 16:49 Chlorhexidine Gluconate (Deisy-Hex 2%) 1 applic BIOTEC TOPIC 08/02/20 21:00 10/31/20 20:59 08/13/20 20:21 Dextrose 1,000 ml @ 0 mls/hr Q0M IV 08/02/20 09:15 09/01/20 09:14 Gadobutrol (Gadavist) 7.5 mmol NOW PRN IV Radiology Procedure 08/12/20 20:45 08/16/20 20:44 Heparin Sodium (Porcine) (Heparin 5000 units/ml) 5,000 units EVERY 12 HOURS SUBQ 08/02/20 21:00 09/16/20 20:59 08/13/20 20:25 Hydralazine HCl (Apresoline) 10 mg Q4H PRN IV sbp >160 08/11/20 13:45 11/09/20 13:44 08/11/20 14:06 Lansoprazole (Prevacid) 30 mg DAILY GT 08/10/20 09:00 09/09/20 08:59 08/13/20 08:52 Metoclopramide HCl (Reglan) 10 mg Q6H PRN IVP Nausea & Vomiting 08/05/20 14:15 09/04/20 14:14 08/07/20 04:38 Metoprolol Tartrate (Lopressor) 50 mg BID GT 08/12/20 18:00 11/07/20 05:59 08/13/20 17:49 Piperacillin Sod/ Tazobactam Sod 3.375 gm/Sodium Chloride 110 ml @ 27.5 mls/hr EVERY 8 HOURS IVPB 08/09/20 22:00 08/14/20 21:59 08/13/20 21:17 Vancomycin HCl (Vanco pharmacy to dose) 1 ea DAILY PRN MISC Per rx protocol 08/09/20 18:30 09/08/20 18:29 Calderon Vazquez MD Aug 13, 2020 22:49
--- NOTE | 2020-08-13 23:21 | Neurology Progress Note ---
Interim History Interim History ROS Limited/Unobtainable: Yes Interim History remains lethargic, mri pending Objective Physical Exam Last Vital Signs Date Time Temp Pulse Resp B/P (MAP) Pulse Ox O2 Delivery O2 Flow Rate FiO2 08/13/20 20:21 200/114 08/13/20 20:00 Mechanical Ventilator 08/13/20 20:00 78 08/13/20 20:00 97.9 16 100 08/13/20 20:00 30 Laboratory Tests Test 08/13/20 03:20 White Blood Count 12.7 K/UL (4.8-10.8) H Red Blood Count 2.77 M/UL (4.70-6.10) L Hemoglobin 8.6 G/DL (14.2-18.0) L Hematocrit 25.4 % (42.0-52.0) L Mean Corpuscular Volume 92 FL (80-99) Mean Corpuscular Hemoglobin 31.1 PG (27.0-31.0) H Mean Corpuscular Hemoglobin Concent 33.9 G/DL (32.0-36.0) Red Cell Distribution Width 16.6 % (11.6-14.8) H Platelet Count 270 K/UL (150-450) Mean Platelet Volume 6.3 FL (6.5-10.1) L Neutrophils (%) (Auto) 78.3 % (45.0-75.0) H Lymphocytes (%) (Auto) 13.5 % (20.0-45.0) L Monocytes (%) (Auto) 6.9 % (1.0-10.0) Eosinophils (%) (Auto) 0.1 % (0.0-3.0) Basophils (%) (Auto) 1.1 % (0.0-2.0) Sodium Level 144 MMOL/L (136-145) Potassium Level 3.4 MMOL/L (3.5-5.1) L Chloride Level 109 MMOL/L (98-107) H Carbon Dioxide Level 27 MMOL/L (21-32) Anion Gap 8 mmol/L (5-15) Blood Urea Nitrogen 64 mg/dL (7-18) H Creatinine 1.7 MG/DL (0.55-1.30) H Estimat Glomerular Filtration Rate 40.5 mL/min (>60) Glucose Level 143 MG/DL (74-106) H Calcium Level 9.1 MG/DL (8.5-10.1) Phosphorus Level 4.3 MG/DL (2.5-4.9) Magnesium Level 2.3 MG/DL (1.8-2.4) Total Bilirubin 0.4 MG/DL (0.2-1.0) Aspartate Amino Transf (AST/SGOT) 35 U/L (15-37) Alanine Aminotransferase (ALT/SGPT) 89 U/L (12-78) H Alkaline Phosphatase 104 U/L (46-116) Total Protein 6.4 G/DL (6.4-8.2) Albumin 2.1 G/DL (3.4-5.0) L Globulin 4.3 g/dL Albumin/Globulin Ratio 0.5 (1.0-2.7) L Random Vancomycin Level 20.3 ug/mL Neurologic Exam Objective trach tachy grimaces to pain lethargic Impression/Recommendations Problems: (1) Respiratory distress (2) Renal failure (3) Metabolic acidosis (4) NSTEMI (non-ST elevated myocardial infarction) (5) Sepsis Diagnostic Impression Encephalopathy, likely metabolic sepsis hx of left thalamic hemorrhage likely from htn icu level map > 65 monitor mental status cont atb fu cultures ok for heparin SC given ich is chronic Pedro Hale MD Aug 13, 2020 23:21
[2020-08-13] MEDS: Acetaminophen 650mg/20.3ml GT PRN (23:47)
[2020-08-14] VITALS: BP 162/90
[2020-08-14 04:00] VITALS: BP 158/84
[2020-08-14] MEDS: Piperacillin/Tazobactam 3.375 GM in NS 110 ML IVPB SCH ×3 (05:07→21:04)
--- NOTE | 2020-08-14 06:54 | Hematology/Onc Progress Note ---
Assessment/Plan Assessment/Plan ASSESSMENT AND PLAN: # Leukocytosis is due to sepsis, fevers, leukocytosis. Avoid nephrotoxic drugs. --> ABX Continue Zyvox, cefepime, and Flagyl --> iamging has been reviewed --> as per pulm and id recs --> wbc 22-->18-->12->11->16-->22-->18-->13.6 # Anemia due to hemodilution --> if lower than 10, get workup --> transfuse prn --> hgb 11-->10-->7.4-->9->8.8-->8.9-->8.2 # Thrombocytopenia due to underlying infection --> medications have been reviewed --> 186-->127-->105->160 --> is on hep, monitor --> smear has been reviewed --> hep and hiv neg # Trach, vent. # Dysphagia, on G-tube. 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 # Diabetes. # Hypertension. # Acute renal failure. # GERD. # Dvt ppx heparin sq Appreciate consultation and anil RN Subjective Allergies: Coded Allergies: No Known Allergies (Unverified , 08/01/20) All Systems: reviewed and negative except above Subjective 08/04 remains on vent, abx, labs reviewed, meds noted 08/06 hd prn, no bleeding,with mota and rectal tube, labs noted 08/07 tolerating gt feeds, no new events overnight, anil rn 08/08 nv, vent, tolerating tube feeds, labs noted 08/09 nv, vent, tolerating tube feeds, labs pending 08/10 nv, trach/vent, no new events, labs are noted, comfortable 08/11 nv, trach/vent, no new events, no night sweats, abx 1:remains on abx treatment no bleeding reported 08/13: tolerating vent settings, no distress 08/14 labs reviewed, meds noted, on vent, no bleeding Objective Objective Current Medications Medications (Trade) Dose Ordered Sig/Maegan Route PRN Reason Start Time Stop Time Status Last Admin Dose Admin Acetaminophen (Tylenol) 650 mg Q4H PRN GT For Pain 08/02/20 15:45 09/01/20 15:44 08/13/20 23:47 Acetaminophen (Tylenol) 650 mg Q4H PRN GT Temp >100.5 08/02/20 15:45 09/01/20 15:44 Calcium Acetate (Phoslo) 1,334 mg TIAC GT 08/09/20 16:30 11/03/20 11:29 08/14/20 05:45 Chlorhexidine Gluconate (Deisy-Hex 2%) 1 applic BIOTEC TOPIC 08/02/20 21:00 10/31/20 20:59 08/13/20 20:21 Dextrose 1,000 ml @ 0 mls/hr Q0M IV 08/02/20 09:15 09/01/20 09:14 Gadobutrol (Gadavist) 7.5 mmol NOW PRN IV Radiology Procedure 08/12/20 20:45 08/16/20 20:44 Heparin Sodium (Porcine) (Heparin 5000 units/ml) 5,000 units EVERY 12 HOURS SUBQ 08/02/20 21:00 09/16/20 20:59 08/13/20 20:25 Hydralazine HCl (Apresoline) 10 mg Q4H PRN IV sbp >160 08/11/20 13:45 11/09/20 13:44 08/14/20 03:28 Lansoprazole (Prevacid) 30 mg DAILY GT 08/10/20 09:00 09/09/20 08:59 08/13/20 08:52 Levofloxacin 50 ml @ 50 mls/hr Q24H IVPB 08/15/20 00:00 08/22/20 00:00 Metoclopramide HCl (Reglan) 10 mg Q6H PRN IVP Nausea & Vomiting 08/05/20 14:15 09/04/20 14:14 08/07/20 04:38 Metoprolol Tartrate (Lopressor) 50 mg BID GT 08/12/20 18:00 11/07/20 05:59 08/13/20 17:49 Piperacillin Sod/ Tazobactam Sod 3.375 gm/Sodium Chloride 110 ml @ 27.5 mls/hr EVERY 8 HOURS IVPB 08/14/20 06:00 08/19/20 05:59 08/14/20 05:07 Last 24 Hour Vital Signs Date Time Temp Pulse Resp B/P (MAP) Pulse Ox O2 Delivery O2 Flow Rate FiO2 08/14/20 04:00 97.9 102 16 158/84 (108) 100 08/14/20 04:00 Mechanical Ventilator 08/14/20 04:00 102 08/14/20 04:00 30 08/14/20 03:28 163/102 08/14/20 00:22 85 16 30 08/14/20 00:00 30 08/14/20 00:00 97.9 84 16 162/90 (114) 100 08/14/20 00:00 Mechanical Ventilator 08/14/20 00:00 101 08/13/20 20:21 200/114 08/13/20 20:00 Mechanical Ventilator 08/13/20 20:00 78 08/13/20 20:00 97.9 86 16 200/114 (142) 100 08/13/20 20:00 30 08/13/20 19:30 82 16 30 08/13/20 17:49 85 161/91 08/13/20 16:00 Mechanical Ventilator 08/13/20 16:00 97.5 85 17 161/91 (114) 100 08/13/20 16:00 30 08/13/20 15:24 75 08/13/20 13:28 89 16 30 08/13/20 12:01 89 08/13/20 12:00 30 08/13/20 12:00 97.0 105 23 152/98 (116) 100 08/13/20 12:00 Mechanical Ventilator 08/13/20 08:58 100 186/93 08/13/20 08:00 30 08/13/20 08:00 97.2 83 16 184/98 (126) 97 08/13/20 08:00 Mechanical Ventilator 08/13/20 07:46 90 08/13/20 07:34 92 16 30 08/13/20 04:00 74 08/13/20 04:00 30 08/13/20 04:00 Mechanical Ventilator 08/13/20 04:00 97.9 83 17 158/95 (116) 97 08/13/20 00:25 84 16 30 08/13/20 00:00 Mechanical Ventilator 08/13/20 00:00 99.1 97 17 153/94 (113) 100 08/13/20 00:00 30 08/13/20 00:00 94 08/12/20 20:00 Mechanical Ventilator 08/12/20 20:00 77 1/2/21 20:00 97.6 74 16 149/83 (105) 100 08/12/20 20:00 30 08/12/20 19:28 82 18 30 08/12/20 17:40 81 154/88 08/12/20 16:00 30 08/12/20 16:00 Mechanical Ventilator 08/12/20 16:00 98.2 85 16 143/83 (103) 100 08/12/20 15:35 79 16 30 08/12/20 15:35 81 08/12/20 12:00 30 08/12/20 12:00 98.1 90 16 138/92 (107) 100 08/12/20 12:00 Mechanical Ventilator 08/12/20 11:42 89 08/12/20 10:36 86 152/89 08/12/20 08:00 Mechanical Ventilator 08/12/20 08:00 84 08/12/20 08:00 98.2 92 23 159/93 (115) 100 08/12/20 08:00 30 08/12/20 07:00 78 16 30 Intake and Output 08/13/20 08/14/20 19:00 07:00 Intake Total 730 ml 540 ml Output Total 850 ml 1200 ml Balance -120 ml -660 ml Intake Free Water 250 ml 100 ml Tube Feeding 480 ml 440 ml Output Urine Total 650 ml 1200 ml Stool Total 200 ml Labs Test 08/11/20 10:37 08/11/20 18:45 08/12/20 00:33 08/12/20 05:40 D-Dimer 2.23 mg/L FEU (0.00-0.49) Random Vancomycin Level 29.1 ug/mL POC Whole Blood Glucose 128 MG/DL (74-106) White Blood Count 16.8 K/UL (4.8-10.8) Red Blood Count 2.72 M/UL (4.70-6.10) Hemoglobin 8.5 G/DL (14.2-18.0) Hematocrit 26.3 % (42.0-52.0) Mean Corpuscular Volume 97 FL (80-99) Mean Corpuscular Hemoglobin 31.3 PG (27.0-31.0) Mean Corpuscular Hemoglobin Concent 32.4 G/DL (32.0-36.0) Red Cell Distribution Width 15.5 % (11.6-14.8) Platelet Count 266 K/UL (150-450) Mean Platelet Volume 6.1 FL (6.5-10.1) Neutrophils (%) (Auto) 84.5 % (45.0-75.0) Lymphocytes (%) (Auto) 9.2 % (20.0-45.0) Monocytes (%) (Auto) 5.5 % (1.0-10.0) Eosinophils (%) (Auto) 0.0 % (0.0-3.0) Basophils (%) (Auto) 0.8 % (0.0-2.0) Sodium Level 143 MMOL/L (136-145) Potassium Level 3.7 MMOL/L (3.5-5.1) Chloride Level 109 MMOL/L (98-107) Carbon Dioxide Level 24 MMOL/L (21-32) Anion Gap 10 mmol/L (5-15) Blood Urea Nitrogen 65 mg/dL (7-18) Creatinine 1.6 MG/DL (0.55-1.30) Estimat Glomerular Filtration Rate 43.5 mL/min (>60) Glucose Level 128 MG/DL (74-106) Calcium Level 9.2 MG/DL (8.5-10.1) Phosphorus Level 4.0 MG/DL (2.5-4.9) Magnesium Level 2.1 MG/DL (1.8-2.4) Total Bilirubin 0.5 MG/DL (0.2-1.0) Aspartate Amino Transf (AST/SGOT) 42 U/L (15-37) Alanine Aminotransferase (ALT/SGPT) 100 U/L (12-78) Alkaline Phosphatase 99 U/L (46-116) Total Protein 6.5 G/DL (6.4-8.2) Albumin 2.1 G/DL (3.4-5.0) Globulin 4.4 g/dL Albumin/Globulin Ratio 0.5 (1.0-2.7) Test 08/12/20 06:10 08/12/20 12:20 08/12/20 17:43 08/13/20 03:20 POC Whole Blood Glucose 118 MG/DL (74-106) 146 MG/DL (74-106) 151 MG/DL (74-106) White Blood Count 12.7 K/UL (4.8-10.8) Red Blood Count 2.77 M/UL (4.70-6.10) Hemoglobin 8.6 G/DL (14.2-18.0) Hematocrit 25.4 % (42.0-52.0) Mean Corpuscular Volume 92 FL (80-99) Mean Corpuscular Hemoglobin 31.1 PG (27.0-31.0) Mean Corpuscular Hemoglobin Concent 33.9 G/DL (32.0-36.0) Red Cell Distribution Width 16.6 % (11.6-14.8) Platelet Count 270 K/UL (150-450) Mean Platelet Volume 6.3 FL (6.5-10.1) Neutrophils (%) (Auto) 78.3 % (45.0-75.0) Lymphocytes (%) (Auto) 13.5 % (20.0-45.0) Monocytes (%) (Auto) 6.9 % (1.0-10.0) Eosinophils (%) (Auto) 0.1 % (0.0-3.0) Basophils (%) (Auto) 1.1 % (0.0-2.0) Sodium Level 144 MMOL/L (136-145) Potassium Level 3.4 MMOL/L (3.5-5.1) Chloride Level 109 MMOL/L (98-107) Carbon Dioxide Level 27 MMOL/L (21-32) Anion Gap 8 mmol/L (5-15) Blood Urea Nitrogen 64 mg/dL (7-18) Creatinine 1.7 MG/DL (0.55-1.30) Estimat Glomerular Filtration Rate 40.5 mL/min (>60) Glucose Level 143 MG/DL (74-106) Calcium Level 9.1 MG/DL (8.5-10.1) Phosphorus Level 4.3 MG/DL (2.5-4.9) Magnesium Level 2.3 MG/DL (1.8-2.4) Total Bilirubin 0.4 MG/DL (0.2-1.0) Aspartate Amino Transf (AST/SGOT) 35 U/L (15-37) Alanine Aminotransferase (ALT/SGPT) 89 U/L (12-78) Alkaline Phosphatase 104 U/L (46-116) Total Protein 6.4 G/DL (6.4-8.2) Albumin 2.1 G/DL (3.4-5.0) Globulin 4.3 g/dL Albumin/Globulin Ratio 0.5 (1.0-2.7) Random Vancomycin Level 20.3 ug/mL Test 08/14/20 03:42 Height (Feet): 5 Height (Inches): 7.00 Weight (Pounds): 175 Objective Physical Exam General Appearance: lethargic Lines, tubes and drains: trach+++ vent++++ HEENT: normocephalic, atraumatic, mucous membranes moist Neck: normal alignment Respiratory/Chest: rhonchi - bilaterally Cardiovascular/Chest: normal peripheral pulses, regular rhythm Abdomen: soft, no mass, ++ feeding tube Extremities: no edema, no cyanosis Skin Exam: normal pigmentation, warm/dry Neurologic: unresponsiveness Karthik Mercedes MD Aug 14, 2020 06:54
[2020-08-14 07:02] LABS: BASOPHILS % (AUTO) 0.8 % (0.0-2.0); EOSINOPHILS % (AUTO) 0.8 % (0.0-3.0); HEMATOCRIT 26.4 % (42.0-52.0); HEMOGLOBIN 8.5 G/DL (14.2-18.0); LYMPHOCYTES % (AUTO) 11.8 % (20.0-45.0); MEAN CORPUSCULAR VOLUME 96 FL (80-99); MONOCYTES % (AUTO) 6.2 % (1.0-10.0); NEUTROPHILS % (AUTO) 80.5 % (45.0-75.0); PLATELET COUNT 262 K/UL (150-450); RED BLOOD COUNT 2.75 M/UL (4.70-6.10); RED CELL DISTRIBUTION WIDTH 15.1 % (11.6-14.8); WHITE BLOOD COUNT 12.7 K/UL (4.8-10.8)
[2020-08-14 07:59] LABS: ALBUMIN 2.1 G/DL (3.4-5.0); ALBUMIN/GLOBULIN RATIO 0.5 (1.0-2.7); BILIRUBIN,TOTAL 0.4 MG/DL (0.2-1.0); CREATININE 1.6 MG/DL (0.55-1.30); POTASSIUM 3.5 MMOL/L (3.5-5.1)
[2020-08-14 08:00] VITALS: BP 155/93
[2020-08-14 08:28] LABS: PHOSPHORUS 3.6 MG/DL (2.5-4.9)
[2020-08-14] MEDS: Metoprolol Tartrate 50mg tab GT SCH ×2 (09:29→17:00)
[2020-08-14] MEDS: Heparin 5000 units/ml inj SUBQ SCH ×2 (09:30→20:20)
[2020-08-14 11:58] VITALS: BP 167/103
--- NOTE | 2020-08-14 13:13 | Surgery Progress Note ---
Surgery Progress Note Subjective Procedure Performed right femoral temporary hemodialysis catheter insertion Additional Comments plan to take hd cath out renal improved no n/v comfortable Objective Last 24 Hour Vital Signs Date Time Temp Pulse Resp B/P (MAP) Pulse Ox O2 Delivery O2 Flow Rate FiO2 08/14/20 12:08 92 167/103 08/14/20 12:08 167/103 08/14/20 12:00 30 08/14/20 12:00 Mechanical Ventilator 08/14/20 11:58 97.7 92 18 167/103 (124) 99 08/14/20 11:36 96 08/14/20 10:49 96 16 30 08/14/20 09:29 107 155/93 08/14/20 08:00 30 08/14/20 08:00 97.7 107 17 155/93 (113) 98 08/14/20 08:00 Mechanical Ventilator 08/14/20 07:51 114 08/14/20 07:36 111 18 30 08/14/20 04:00 97.9 102 16 158/84 (108) 100 08/14/20 04:00 Mechanical Ventilator 08/14/20 04:00 102 08/14/20 04:00 30 08/14/20 03:28 163/102 08/14/20 00:22 85 16 30 08/14/20 00:00 30 08/14/20 00:00 97.9 84 16 162/90 (114) 100 08/14/20 00:00 Mechanical Ventilator 08/14/20 00:00 101 08/13/20 20:21 200/114 08/13/20 20:00 Mechanical Ventilator 08/13/20 20:00 78 08/13/20 20:00 97.9 86 16 200/114 (142) 100 08/13/20 20:00 30 08/13/20 19:30 82 16 30 08/13/20 17:49 85 161/91 08/13/20 16:00 Mechanical Ventilator 08/13/20 16:00 97.5 85 17 161/91 (114) 100 08/13/20 16:00 30 08/13/20 15:24 75 08/13/20 13:28 89 16 30 I&O Intake and Output 08/13/20 08/14/20 19:00 07:00 Intake Total 730 ml 540 ml Output Total 850 ml 1200 ml Balance -120 ml -660 ml Intake Free Water 250 ml 100 ml Tube Feeding 480 ml 440 ml Output Urine Total 650 ml 1200 ml Stool Total 200 ml Dressing: dry Cardiovascular: RSR Respiratory: decreased breath sounds Abdomen: soft, non-tender, present bowel sounds, non-distended Extremities: no edema, no tenderness, no cyanosis Laboratory Tests Test 08/14/20 03:42 White Blood Count 12.7 K/UL (4.8-10.8) H Red Blood Count 2.75 M/UL (4.70-6.10) L Hemoglobin 8.5 G/DL (14.2-18.0) L Hematocrit 26.4 % (42.0-52.0) L Mean Corpuscular Volume 96 FL (80-99) Mean Corpuscular Hemoglobin 31.1 PG (27.0-31.0) H Mean Corpuscular Hemoglobin Concent 32.3 G/DL (32.0-36.0) Red Cell Distribution Width 15.1 % (11.6-14.8) H Platelet Count 262 K/UL (150-450) Mean Platelet Volume 5.9 FL (6.5-10.1) L Neutrophils (%) (Auto) 80.5 % (45.0-75.0) H Lymphocytes (%) (Auto) 11.8 % (20.0-45.0) L Monocytes (%) (Auto) 6.2 % (1.0-10.0) Eosinophils (%) (Auto) 0.8 % (0.0-3.0) Basophils (%) (Auto) 0.8 % (0.0-2.0) Sodium Level 144 MMOL/L (136-145) Potassium Level 3.5 MMOL/L (3.5-5.1) Chloride Level 108 MMOL/L (98-107) H Carbon Dioxide Level 26 MMOL/L (21-32) Anion Gap 10 mmol/L (5-15) Blood Urea Nitrogen 58 mg/dL (7-18) H Creatinine 1.6 MG/DL (0.55-1.30) H Estimat Glomerular Filtration Rate 43.5 mL/min (>60) Glucose Level 131 MG/DL (74-106) H Calcium Level 9.0 MG/DL (8.5-10.1) Phosphorus Level 3.6 MG/DL (2.5-4.9) Magnesium Level 2.2 MG/DL (1.8-2.4) Total Bilirubin 0.4 MG/DL (0.2-1.0) Aspartate Amino Transf (AST/SGOT) 36 U/L (15-37) Alanine Aminotransferase (ALT/SGPT) 85 U/L (12-78) H Alkaline Phosphatase 97 U/L (46-116) Total Protein 6.7 G/DL (6.4-8.2) Albumin 2.1 G/DL (3.4-5.0) L Globulin 4.6 g/dL Albumin/Globulin Ratio 0.5 (1.0-2.7) L Random Vancomycin Level 33.7 ug/mL Plan Problems: (1) Respiratory distress (2) Renal failure Assessment & Plan: plan HD line soon temp hd consent from daughter (3) Metabolic acidosis (4) NSTEMI (non-ST elevated myocardial infarction) (5) Sepsis Assessment & Plan: okay for tf iv fluids vent via trach weaning vent g tube okay decubitus eval done and local care provided labs noted acidosis plan HD cont abx as per ID will follow with recs thank you DAILY ESTIMATED NEEDS: Needs based on Critical care, wound, AUNDREA/ 62.7kg 22-28 kcals/kg 6190-3085 total kcals 0.8-1.25 (increase w/ renal fxn improvement) g protein/kg 50-78 g total protein 20-25 mL/kg 2422-0680 total fluid mLs NUTRITION DIAGNOSIS: Swallowing difficulty R/T respiratory failure as evidenced by trach/vent dep, PEG dep. CURRENT TF: NPO ENTERAL NUTRITION RECOMMENDATIONS: Nepro @ 35ml/hr x 24 hrs to provide 840ml, 1512kcal, 68g prot, 611ml free water * As medically appropriate, initiate Nepro, rec goal rate of 35ml/hr x 24 hrs * HOB over 30 degrees/ water flush per MD ADDITIONAL RECOMMENDATIONS: * Per SNF: HT=68" and QA=652mqg -> daily calibrated bedscale wt * Monitor renal fxn and lytes, ability to increase est prot needs * NISS w/ TF -> h/o DM * Probiotics for diarrhea * Wound healing: Add Nephrovite x 1, ZnSO4 220mg QD x 10 days Kenji BID w/ TF Rohit Brand Aug 14, 2020 13:13
--- NOTE | 2020-08-14 13:15 | Nephrology Progress Note ---
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 per daughter #Uremia #Anemia #Pneumonia #sepsis - lasix 60 IV today - replete - for now hold off HD- Cr seems to be stabilizing -ok to remove HD catheter - monitor labs - add sevelamer - monitor ABG - antibiotics per ID - avoid nephrotoxins - monitor UOP - monitor electrolytes time spent 65 min Subjective ROS Limited/Unobtainable: Yes Subjective Cr stable replete k lasix 60 IV ok to remove HD catheter Objective Objective Last 24 Hour Vital Signs Date Time Temp Pulse Resp B/P (MAP) Pulse Ox O2 Delivery O2 Flow Rate FiO2 08/14/20 12:08 92 167/103 08/14/20 12:08 167/103 08/14/20 12:00 30 08/14/20 12:00 Mechanical Ventilator 08/14/20 11:58 97.7 92 18 167/103 (124) 99 08/14/20 11:36 96 08/14/20 10:49 96 16 30 08/14/20 09:29 107 155/93 08/14/20 08:00 30 08/14/20 08:00 97.7 107 17 155/93 (113) 98 08/14/20 08:00 Mechanical Ventilator 08/14/20 07:51 114 08/14/20 07:36 111 18 30 08/14/20 04:00 97.9 102 16 158/84 (108) 100 08/14/20 04:00 Mechanical Ventilator 08/14/20 04:00 102 08/14/20 04:00 30 08/14/20 03:28 163/102 08/14/20 00:22 85 16 30 08/14/20 00:00 30 08/14/20 00:00 97.9 84 16 162/90 (114) 100 08/14/20 00:00 Mechanical Ventilator 08/14/20 00:00 101 08/13/20 20:21 200/114 08/13/20 20:00 Mechanical Ventilator 08/13/20 20:00 78 08/13/20 20:00 97.9 86 16 200/114 (142) 100 08/13/20 20:00 30 08/13/20 19:30 82 16 30 08/13/20 17:49 85 161/91 08/13/20 16:00 Mechanical Ventilator 08/13/20 16:00 97.5 85 17 161/91 (114) 100 08/13/20 16:00 30 08/13/20 15:24 75 08/13/20 13:28 89 16 30 Intake and Output 08/13/20 08/14/20 19:00 07:00 Intake Total 730 ml 540 ml Output Total 850 ml 1200 ml Balance -120 ml -660 ml Intake Free Water 250 ml 100 ml Tube Feeding 480 ml 440 ml Output Urine Total 650 ml 1200 ml Stool Total 200 ml Laboratory Tests 08/14/20 03:42: White Blood Count 12.7H, Red Blood Count 2.75L, Hemoglobin 8.5L, Hematocrit 26.4L, Mean Corpuscular Volume 96, Mean Corpuscular Hemoglobin 31.1H, Mean Corpuscular Hemoglobin Concent 32.3, Red Cell Distribution Width 15.1H, Platelet Count 262, Mean Platelet Volume 5.9L, Neutrophils (%) (Auto) 80.5H, Lymphocytes (%) (Auto) 11.8L, Monocytes (%) (Auto) 6.2, Eosinophils (%) (Auto) 0.8, Baso phils (%) (Auto) 0.8, Sodium Level 144, Potassium Level 3.5, Chloride Level 108H , Carbon Dioxide Level 26, Anion Gap 10, Blood Urea Nitrogen 58H, Creatinine 1.6H, Estimat Glomerular Filtration Rate 43.5, Glucose Level 131H, Calcium Level 9.0, Phosphorus Level 3.6, Magnesium Level 2.2, Total Bilirubin 0.4, Aspartate Amino Transf (AST/SGOT) 36, Alanine Aminotransferase (ALT/SGPT) 85H, Alkaline Phosphatase 97, Total Protein 6.7, Albumin 2.1L, Globulin 4.6, Albumin/Globulin Ratio 0.5L, Random Vancomycin Level 33.7 Height (Feet): 5 Height (Inches): 7.00 Weight (Pounds): 175 Objective General Appearance: other - non interactive Cardiovascular: normal rate, regular rhythm Respiratory/Chest: no respiratory distress, other - Trach on Vent Abdomen: soft, other - Rectal tube in place Extremities: other - bedbound Neurologic: other - non interactive at baseline Skin: warm/dry Gladys Sherman M.D. Aug 14, 2020 13:15
--- NOTE | 2020-08-14 15:29 | Cardiac Electrophysiology PN ---
Assessment/Plan Assessment/Plan 1. Troponin elevation. Levels are coming down at 0.8 to 0.5. Due to renal failure with BUN of 343, creatinine of 4.1 as well as sepsis with white count of 22,000. His EKG also shows sinus rhythm with inferolateral ischemia. On Lopressor 50 bid. 2. Shortness of breath with respiratory failure, status post tracheostomy, on the ventilator with 30% FiO2. 3. Accelerated HTN with BP in 200s last night. Amlodipine 5 bid added to lopressor 50 bid 4. S/P Acute renal failure with BUN of 343, creatinine of 4.1. S/P Right IJ Nicholas catheter 08/07. Removal is now pending Had first HD on 08/03. No more dialysis for now as BUN 65 and Cr 1.6 5. Diabetes. 6. History of left thalamic hemorrhage. 7. Dysphagia, status post PEG placement. Subjective Subjective Just had removal of the Right IJ Nicholas catheter by Dr Brand since no more need for HD. On the vent with 30% Fio2 via trach. Objective Last 24 Hour Vital Signs Date Time Temp Pulse Resp B/P (MAP) Pulse Ox O2 Delivery O2 Flow Rate FiO2 08/14/20 12:08 92 167/103 08/14/20 12:08 167/103 08/14/20 12:00 30 08/14/20 12:00 Mechanical Ventilator 08/14/20 11:58 97.7 92 18 167/103 (124) 99 08/14/20 11:36 96 08/14/20 10:49 96 16 30 08/14/20 09:29 107 155/93 08/14/20 08:00 30 08/14/20 08:00 97.7 107 17 155/93 (113) 98 08/14/20 08:00 Mechanical Ventilator 08/14/20 07:51 114 08/14/20 07:36 111 18 30 08/14/20 04:00 97.9 102 16 158/84 (108) 100 08/14/20 04:00 Mechanical Ventilator 08/14/20 04:00 102 08/14/20 04:00 30 08/14/20 03:28 163/102 08/14/20 00:22 85 16 30 08/14/20 00:00 30 08/14/20 00:00 97.9 84 16 162/90 (114) 100 08/14/20 00:00 Mechanical Ventilator 08/14/20 00:00 101 08/13/20 20:21 200/114 08/13/20 20:00 Mechanical Ventilator 08/13/20 20:00 78 08/13/20 20:00 97.9 86 16 200/114 (142) 100 08/13/20 20:00 30 08/13/20 19:30 82 16 30 08/13/20 17:49 85 161/91 08/13/20 16:00 Mechanical Ventilator 08/13/20 16:00 97.5 85 17 161/91 (114) 100 08/13/20 16:00 30 Intake and Output 08/13/20 08/14/20 19:00 07:00 Intake Total 730 ml 540 ml Output Total 850 ml 1200 ml Balance -120 ml -660 ml Intake Free Water 250 ml 100 ml Tube Feeding 480 ml 440 ml Output Urine Total 650 ml 1200 ml Stool Total 200 ml Laboratory Tests Test 08/14/20 03:42 White Blood Count 12.7 K/UL (4.8-10.8) H Red Blood Count 2.75 M/UL (4.70-6.10) L Hemoglobin 8.5 G/DL (14.2-18.0) L Hematocrit 26.4 % (42.0-52.0) L Mean Corpuscular Volume 96 FL (80-99) Mean Corpuscular Hemoglobin 31.1 PG (27.0-31.0) H Mean Corpuscular Hemoglobin Concent 32.3 G/DL (32.0-36.0) Red Cell Distribution Width 15.1 % (11.6-14.8) H Platelet Count 262 K/UL (150-450) Mean Platelet Volume 5.9 FL (6.5-10.1) L Neutrophils (%) (Auto) 80.5 % (45.0-75.0) H Lymphocytes (%) (Auto) 11.8 % (20.0-45.0) L Monocytes (%) (Auto) 6.2 % (1.0-10.0) Eosinophils (%) (Auto) 0.8 % (0.0-3.0) Basophils (%) (Auto) 0.8 % (0.0-2.0) Sodium Level 144 MMOL/L (136-145) Potassium Level 3.5 MMOL/L (3.5-5.1) Chloride Level 108 MMOL/L (98-107) H Carbon Dioxide Level 26 MMOL/L (21-32) Anion Gap 10 mmol/L (5-15) Blood Urea Nitrogen 58 mg/dL (7-18) H Creatinine 1.6 MG/DL (0.55-1.30) H Estimat Glomerular Filtration Rate 43.5 mL/min (>60) Glucose Level 131 MG/DL (74-106) H Calcium Level 9.0 MG/DL (8.5-10.1) Phosphorus Level 3.6 MG/DL (2.5-4.9) Magnesium Level 2.2 MG/DL (1.8-2.4) Total Bilirubin 0.4 MG/DL (0.2-1.0) Aspartate Amino Transf (AST/SGOT) 36 U/L (15-37) Alanine Aminotransferase (ALT/SGPT) 85 U/L (12-78) H Alkaline Phosphatase 97 U/L (46-116) Total Protein 6.7 G/DL (6.4-8.2) Albumin 2.1 G/DL (3.4-5.0) L Globulin 4.6 g/dL Albumin/Globulin Ratio 0.5 (1.0-2.7) L Random Vancomycin Level 33.7 ug/mL Objective HEAD AND NECK: S/P tracheostomy with no JVD. LUNGS: Coarse rhonchi. CARDIOVASCULAR: Regular S1 and S2 with no gallop. ABDOMEN: Status post G-tube. EXTREMITIES: No pitting edema. Gregorio Mari MD Aug 14, 2020 15:29
--- NOTE | 2020-08-14 15:57 | General Progress Note ---
Subjective Date patient seen: Aug 14, 2020 Allergies: Coded Allergies: No Known Allergies (Unverified , 08/01/20) Subjective No acute events overnight per nursing. Blood pressure up to 200 sbp. Improved with hydralazine. Neuro status is stable. No new changes. Still making good urine. Creatinine is stable. Planning to remove HD line. Unable to perform MRI. Neuro aware. Vent settings stable ROS unable to obtain due to ALOC Objective Last 24 Hour Vital Signs Date Time Temp Pulse Resp B/P (MAP) Pulse Ox O2 Delivery O2 Flow Rate FiO2 08/14/20 12:08 92 167/103 08/14/20 12:08 167/103 08/14/20 12:00 30 08/14/20 12:00 Mechanical Ventilator 08/14/20 11:58 97.7 92 18 167/103 (124) 99 08/14/20 11:36 96 08/14/20 10:49 96 16 30 08/14/20 09:29 107 155/93 08/14/20 08:00 30 08/14/20 08:00 97.7 107 17 155/93 (113) 98 08/14/20 08:00 Mechanical Ventilator 08/14/20 07:51 114 08/14/20 07:36 111 18 30 08/14/20 04:00 97.9 102 16 158/84 (108) 100 08/14/20 04:00 Mechanical Ventilator 08/14/20 04:00 102 08/14/20 04:00 30 08/14/20 03:28 163/102 08/14/20 00:22 85 16 30 08/14/20 00:00 30 08/14/20 00:00 97.9 84 16 162/90 (114) 100 08/14/20 00:00 Mechanical Ventilator 08/14/20 00:00 101 08/13/20 20:21 200/114 08/13/20 20:00 Mechanical Ventilator 08/13/20 20:00 78 08/13/20 20:00 97.9 86 16 200/114 (142) 100 08/13/20 20:00 30 08/13/20 19:30 82 16 30 08/13/20 17:49 85 161/91 08/13/20 16:00 Mechanical Ventilator 08/13/20 16:00 97.5 85 17 161/91 (114) 100 08/13/20 16:00 30 Intake and Output 08/13/20 08/14/20 19:00 07:00 Intake Total 730 ml 540 ml Output Total 850 ml 1200 ml Balance -120 ml -660 ml Intake Free Water 250 ml 100 ml Tube Feeding 480 ml 440 ml Output Urine Total 650 ml 1200 ml Stool Total 200 ml Laboratory Tests 08/14/20 03:42: White Blood Count 12.7H, Red Blood Count 2.75L, Hemoglobin 8.5L, Hematocrit 26.4L, Mean Corpuscular Volume 96, Mean Corpuscular Hemoglobin 31.1H, Mean Corpuscular Hemoglobin Concent 32.3, Red Cell Distribution Width 15.1H, Platelet Count 262, Mean Platelet Volume 5.9L, Neutrophils (%) (Auto) 80.5H, Lymphocytes (%) (Auto) 11.8L, Monocytes (%) (Auto) 6.2, Eosinophils (%) (Auto) 0.8, Basophils (%) (Auto) 0.8, Sodium Level 144, Potassium Level 3.5, Chloride Level 108H, Carbon Dioxide Level 26, Anion Gap 10, Blood Urea Nitrogen 58H, Creatinine 1.6H, Estimat Glomerular Filtration Rate 43.5, Glucose Level 131H, Calcium Level 9.0, Phosphorus Level 3.6, Magnesium Level 2.2, Total Bilirubin 0.4, Aspartate Amino Transf (AST/SGOT) 36, Alanine Aminotransferase (ALT/SGPT) 85H, Alkaline Phosphatase 97, Total Protein 6.7, Albumin 2.1L, Globulin 4.6, Albumin/Globulin Ratio 0.5L, Random Vancomycin Level 33.7 Height (Feet): 5 Height (Inches): 7.00 Weight (Pounds): 175 Objective General: Chronic trach/vent dependent male. Alert, not oriented HEENT: Normocephalic cephalic atraumatic, pupils equal round reactive to light and accommodation, nares patent and no symmetrical, no tonsillar exudates, mucous membranes moist + trach in place CV: Regular rate regular rhythm, no murmurs, rubs, or gallops Pulm: Lungs clear to auscultation bilaterally. No wheezes, rhonchi, or rales GI: Soft, nontender, nondistended, bowel sounds present Neuro: CN 2-12 intact bilaterally, no focal signs. UE and LE flaccid. Minimal response (baseline). Does not track. Ext: No lower extremity edema bilaterally + some UE and LE swelling bilaterally trace to 1+ Skin: no rashes lesions or ulcers Msk: Joints symmetrical in upper extremity and lower extremity bilaterally, no joint swelling. Lymph: No lymphadenopathy in upper extremity and lower extremity Assessment/Plan Assessment/Plan: #Acute on Chronic Resp Failure/Trach and Vent Dependent > Possible pneumoni on recent CXR- reviewed #Sepsis- Unclear Source, Rule out VAP #leukocytosis - worsening #elevated D-dimer > Afebrile. ? UTI - Appreciate ID recommendations: [place] - Appreciate Pulm recommendations: Dr. Lee - ABX per ID - Vanc per pharm (08/09 - ) - Zosyn (08/09 - ) - CT chest, abd, pelvis non contrast per ID: Reviewed. No acute process. No pneumonia. - Check Venous duplex UE and LE bilaterally: Negative - Consider VQ scan although vent setting stable- defer to pulm -> Repeat D-dimer -> Downtrending. Defer pulmonary imaging to pulm. 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 hematoma Appreciate Neurology; Supportive Measures, Frequent Turning, Monitor for pressure ulcers Continue PEG tube care/Tube Feedings per Nutrition recs - CT head today: reviewed -MRI brain w/wo con ordered by neurology. Ok for contrast per nephrology - > unable to perform per RN and radiology as patient on Vent - D/w Dr. Hale #Acute Renal Failure requiring HD #Associated AGMA #hypokalemia- replete PRN - Appreciate Nephro-Pirdary - Renal function is improving, can likely d/c HD -Monitor urine output -Avoid Nephrotoxic Agents -Phosphlo/Renvela - will remove IJ line soon - > Surgery to remove #Hypertension #hypertensive urgency, resolve - Metorpolol 50mg BID - Add Amlodipine 5mg BID - Hydralazine PRN - Appreciate cardiology consult - Appreciate nephrology consult #NSTEMI-Demand Ischemia -Appreciate Dr. Mari- Troponins Trended -Stable - no acute interventions #POsitive Stool OB > no active bleeding - GI consult: Dr. Godoy #DMII Weight based insulin dosing; goal blood sugar less than 180 , Add long acting prn FENPPX DVTPPX: HSQ Fluids: per nephro Diet: tube feedings Lines: HD line PT/OT: pending Code status: Full Dispo: Rehab eventually Reason for Continued Hospitalization: Sepsis MIPS (Merit-based Incentive Payment System) Applicable CPT: 30102, 56967 CHECK ALL THAT ARE MET: [] Measure #5 (CHF): All ages. Prescribe RAGINI/ARB upon discharge for patients with left ventricular systolic dysfunction. If not, the reason is clearly documented in the medical chart [] Measure #8 (CHF): All ages. Prescribe a beta herbie upon discharge for patients with left ventricular systolic dysfunction. If not, the reason is clearly documented in the medical chart. [] Measure #47: Advance care plan or surrogate decision maker documented in the medical record. [x] Measure #130 The provider has documented, updated, or reviewed the patients current medication list and has documented it in the patients note. [x] Measure #374 (All): Send report to referring provider. [] Measure #407(Sepsis due to MSSA bacteremia): Age 18+ Patient treated with a beta-lactam antibiotic (Nafcillin, Oxacillin or Cefazolin) as definitive therapy. MEDICAL COMPLEXITYHigh complexity medical decision making (need 2/3 categories)Problem - need 4 points [x]Acute/new problem with new plan for workup (4 points, 1 max) [] Acute/new problem without additional workup (3 points, 1 max) [x] Unstable chronic problem actively being managed (2 point each, 2 max) [x] Stable chronic problem actively being managed (1 point each, 2 max) [] Self-limited/transient process (constipation, muscle ache, etc) (1 point each, 2 max) Data - need 4 points [x] Reviewed labs/imaging studies (1 points, 2 max) [x] Independent review of imaging (EKG, xrays, etc) (2 points, 2 max) [x] Discussed case with consult/other MD/RN (2 points, 2 max) High Risk - qualify if have one of the following: [x] Severe exacerbation of acute problem, acute mental status change, IV narcotics, monitoring drug levels (vancomycin, INR, tacrolimus etc) I spent 37 minutes on this patient's case, and 22 mins was dedicated to counseling and/or care coordination. Discussed with ID, GI, neurology, nephrology, RN Time of note may not reflect time of encounter Fredrick Silva D.O. Aug 14, 2020 15:57
[2020-08-14 15:58] VITALS: BP 133/85
--- NOTE | 2020-08-14 17:24 | Pulmonology Progress Note ---
Subjective ROS Limited/Unobtainable: Yes Interval Events: No new events Constitutional: Reports: fatigue, other - + trach and vent ; Denies: fever HEENT: Repors: no symptoms Respiratory: Reports: no symptoms Cardiovascular: Reports: no symptoms Gastrointestinal/Abdominal: Reports: diarrhea, other - + rectal tube ; Denies: nausea, vomiting Psychiatric: Reports: other - NA Skin: Denies: rash Musculoskeletal: Reports: other - NA Allergies: Coded Allergies: No Known Allergies (Unverified , 08/01/20) All Systems: reviewed and negative except above Objective Last 24 Hour Vital Signs Date Time Temp Pulse Resp B/P (MAP) Pulse Ox O2 Delivery O2 Flow Rate FiO2 08/14/20 17:00 109 133/85 08/14/20 16:00 Mechanical Ventilator 08/14/20 16:00 30 08/14/20 15:58 98.1 109 17 133/85 (101) 99 08/14/20 15:18 116 08/14/20 12:08 92 167/103 08/14/20 12:08 167/103 08/14/20 12:00 30 08/14/20 12:00 Mechanical Ventilator 08/14/20 11:58 97.7 92 18 167/103 (124) 99 08/14/20 11:36 96 08/14/20 10:49 96 16 30 08/14/20 09:29 107 155/93 08/14/20 08:00 30 08/14/20 08:00 97.7 107 17 155/93 (113) 98 08/14/20 08:00 Mechanical Ventilator 08/14/20 07:51 114 08/14/20 07:36 111 18 30 08/14/20 04:00 97.9 102 16 158/84 (108) 100 08/14/20 04:00 Mechanical Ventilator 08/14/20 04:00 102 08/14/20 04:00 30 08/14/20 03:28 163/102 08/14/20 00:22 85 16 30 08/14/20 00:00 30 08/14/20 00:00 97.9 84 16 162/90 (114) 100 08/14/20 00:00 Mechanical Ventilator 08/14/20 00:00 101 08/13/20 20:21 200/114 08/13/20 20:00 Mechanical Ventilator 08/13/20 20:00 78 08/13/20 20:00 97.9 86 16 200/114 (142) 100 08/13/20 20:00 30 08/13/20 19:30 82 16 30 08/13/20 17:49 85 161/91 l Intake and Output 08/13/20 08/14/20 19:00 07:00 Intake Total 730 ml 540 ml Output Total 850 ml 1200 ml Balance -120 ml -660 ml Intake Free Water 250 ml 100 ml Tube Feeding 480 ml 440 ml Output Urine Total 650 ml 1200 ml Stool Total 200 ml General Appearance: WD/WN HEENT: normocephalic, status post trach Respiratory: chest wall non-tender Cardiovascular: normal peripheral pulses, normal rate Abdomen: normal bowel sounds Laboratory Tests 08/14/20 03:42: White Blood Count 12.7H, Red Blood Count 2.75L, Hemoglobin 8.5L, Hematocrit 2 6.4L, Mean Corpuscular Volume 96, Mean Corpuscular Hemoglobin 31.1H, Mean Corpuscular Hemoglobin Concent 32.3, Red Cell Distribution Width 15.1H, Platelet Count 262, Mean Platelet Volume 5.9L, Neutrophils (%) (Auto) 80.5H, Lymphocytes (%) (Auto) 11.8L, Monocytes (%) (Auto) 6.2, Eosinophils (%) (Auto) 0.8, Basophils (%) (Auto) 0.8, Sodium Level 144, Potassium Level 3.5, Chloride Level 108H, Carbon Dioxide Level 26, Anion Gap 10, Blood Urea Nitrogen 58H, Creatinine 1.6H, Estimat Glomerular Filtration Rate 43.5, Glucose Level 131H, Calcium Level 9.0, Phosphorus Level 3.6, Magnesium Level 2.2, Total Bilirubin 0.4, Aspartate Amino Transf (AST/SGOT) 36, Alanine Aminotransferase (ALT/SGPT) 85H, Alkaline Phosphatase 97, Total Protein 6.7, Albumin 2.1L, Globulin 4.6, Albumin/Globulin Ratio 0.5L, Random Vancomycin Level 33.7 Current Medications Medications (Trade) Dose Ordered Sig/Maegan Route PRN Reason Start Time Stop Time Status Last Admin Dose Admin Acetaminophen (Tylenol) 650 mg Q4H PRN GT For Pain 08/02/20 15:45 09/01/20 15:44 08/13/20 23:47 Acetaminophen (Tylenol) 650 mg Q4H PRN GT Temp >100.5 08/02/20 15:45 09/01/20 15:44 Amlodipine Besylate (Norvasc) 5 mg Q12HR ORAL 08/14/20 12:00 09/13/20 11:59 08/14/20 12:08 Calcium Acetate (Phoslo) 1,334 mg TIAC GT 08/09/20 16:30 11/03/20 11:29 08/14/20 16:59 Chlorhexidine Gluconate (Deisy-Hex 2%) 1 applic BIOTEC TOPIC 08/02/20 21:00 10/31/20 20:59 08/13/20 20:21 Dextrose 1,000 ml @ 0 mls/hr Q0M IV 08/02/20 09:15 09/01/20 09:14 Gadobutrol (Gadavist) 7.5 mmol NOW PRN IV Radiology Procedure 08/12/20 20:45 08/16/20 20:44 Heparin Sodium (Porcine) (Heparin 5000 units/ml) 5,000 units EVERY 12 HOURS SUBQ 08/02/20 21:00 09/16/20 20:59 08/14/20 09:30 Hydralazine HCl (Apresoline) 10 mg Q4H PRN IV sbp >160 08/11/20 13:45 11/09/20 13:44 08/14/20 12:08 Lansoprazole (Prevacid) 30 mg DAILY GT 08/10/20 09:00 09/09/20 08:59 08/14/20 09:29 Levofloxacin 50 ml @ 50 mls/hr Q24H IVPB 08/15/20 00:00 08/22/20 00:00 Metoclopramide HCl (Reglan) 10 mg Q6H PRN IVP Nausea & Vomiting 08/05/20 14:15 09/04/20 14:14 08/07/20 04:38 Metoprolol Tartrate (Lopressor) 50 mg BID GT 08/12/20 18:00 11/07/20 05:59 08/14/20 17:00 Piperacillin Sod/ Tazobactam Sod 3.375 gm/Sodium Chloride 110 ml @ 27.5 mls/hr EVERY 8 HOURS IVPB 08/14/20 06:00 08/19/20 05:59 08/14/20 13:44 Assessment/Plan Assessment/Plan 1. Chronic respiratory failure. Chronic tracheostomy 2. Metabolic acidosis. On hemodialysis 3. Renal failure. HD per renal 4. Leukocytosis. 5. Sepsis. Source unclear; C dif negative; CXR clear DISCUSSION: Agree with broad spectrum antibiotics. We will continue AC mode. Currently FiO2 30%; PEEP 5 Discontinued bicarbonate supplementation. Noted plans for HD Hemodynamically stable We will follow carefully. Stool OB positive CXR 08/11 shows mild atelectasis D dimer 2.35; lower than prior Doubt embolic phenomenon The patient was seen and examined at bedside and all new and available data was reviewed in the patients chart. I agree with the above findings, impression, and plan. (Patient was seen earlier today. Signature timestamp does not reflect patient encounter time) Jack Downing MD, MD Aug 14, 2020 17:24
[2020-08-14 20:00] VITALS: BP 160/92
--- NOTE | 2020-08-14 23:00 | Neurology Progress Note ---
Interim History Interim History ROS Limited/Unobtainable: Yes Interim History unable to perform mri, given poor baseline defer for now =. Repeat ct brain in 1 month Objective Physical Exam Last Vital Signs Date Time Temp Pulse Resp B/P (MAP) Pulse Ox O2 Delivery O2 Flow Rate FiO2 08/14/20 22:31 93 16 30 08/14/20 20:21 160/92 08/14/20 16:00 Mechanical Ventilator 08/14/20 15:58 98.1 99 Laboratory Tests Test 08/14/20 03:42 White Blood Count 12.7 K/UL (4.8-10.8) H Red Blood Count 2.75 M/UL (4.70-6.10) L Hemoglobin 8.5 G/DL (14.2-18.0) L Hematocrit 26.4 % (42.0-52.0) L Mean Corpuscular Volume 96 FL (80-99) Mean Corpuscular Hemoglobin 31.1 PG (27.0-31.0) H Mean Corpuscular Hemoglobin Concent 32.3 G/DL (32.0-36.0) Red Cell Distribution Width 15.1 % (11.6-14.8) H Platelet Count 262 K/UL (150-450) Mean Platelet Volume 5.9 FL (6.5-10.1) L Neutrophils (%) (Auto) 80.5 % (45.0-75.0) H Lymphocytes (%) (Auto) 11.8 % (20.0-45.0) L Monocytes (%) (Auto) 6.2 % (1.0-10.0) Eosinophils (%) (Auto) 0.8 % (0.0-3.0) Basophils (%) (Auto) 0.8 % (0.0-2.0) Sodium Level 144 MMOL/L (136-145) Potassium Level 3.5 MMOL/L (3.5-5.1) Chloride Level 108 MMOL/L (98-107) H Carbon Dioxide Level 26 MMOL/L (21-32) Anion Gap 10 mmol/L (5-15) Blood Urea Nitrogen 58 mg/dL (7-18) H Creatinine 1.6 MG/DL (0.55-1.30) H Estimat Glomerular Filtration Rate 43.5 mL/min (>60) Glucose Level 131 MG/DL (74-106) H Calcium Level 9.0 MG/DL (8.5-10.1) Phosphorus Level 3.6 MG/DL (2.5-4.9) Magnesium Level 2.2 MG/DL (1.8-2.4) Total Bilirubin 0.4 MG/DL (0.2-1.0) Aspartate Amino Transf (AST/SGOT) 36 U/L (15-37) Alanine Aminotransferase (ALT/SGPT) 85 U/L (12-78) H Alkaline Phosphatase 97 U/L (46-116) Total Protein 6.7 G/DL (6.4-8.2) Albumin 2.1 G/DL (3.4-5.0) L Globulin 4.6 g/dL Albumin/Globulin Ratio 0.5 (1.0-2.7) L Random Vancomycin Level 33.7 ug/mL Neurologic Exam Objective trach tachy grimaces to pain lethargic Impression/Recommendations Problems: (1) Respiratory distress (2) Renal failure (3) Metabolic acidosis (4) NSTEMI (non-ST elevated myocardial infarction) (5) Sepsis Diagnostic Impression Encephalopathy, likely metabolic sepsis hx of left thalamic hemorrhage likely from htn Repeat ct brain in 1 month monitor mental status cont atb ok for heparin SC given ich is chronic Pedro Hale MD Aug 14, 2020 23:00
[2020-08-15] VITALS (7 sets, daily range): BP systolic 142–192; BP diastolic 80–99
[2020-08-15] MEDS ORDERED: Levofloxacin 250mg/D5W 50ml IVPB SCH
[2020-08-15] MEDS: Piperacillin/Tazobactam 3.375 GM in NS 110 ML IVPB SCH ×2 (05:41→14:15)
[2020-08-15 06:19] LABS: BASOPHILS % (AUTO) 1.1 % (0.0-2.0); EOSINOPHILS % (AUTO) 0.4 % (0.0-3.0); HEMATOCRIT 26.5 % (42.0-52.0); LYMPHOCYTES % (AUTO) 9.8 % (20.0-45.0); MEAN CORPUSCULAR VOLUME 93 FL (80-99); MONOCYTES % (AUTO) 7.6 % (1.0-10.0); NEUTROPHILS % (AUTO) 81.1 % (45.0-75.0); PLATELET COUNT 275 K/UL (150-450); RED BLOOD COUNT 2.85 M/UL (4.70-6.10); RED CELL DISTRIBUTION WIDTH 15.7 % (11.6-14.8); WHITE BLOOD COUNT 11.3 K/UL (4.8-10.8)
--- NOTE | 2020-08-15 06:47 | Hematology/Onc Progress Note ---
Assessment/Plan Assessment/Plan ASSESSMENT AND PLAN: # Leukocytosis is due to sepsis, fevers, leukocytosis. Avoid nephrotoxic drugs. --> ABX Continue Zyvox, cefepime, and Flagyl --> iamging has been reviewed --> as per pulm and id recs --> wbc 22-->18-->12->11->16-->22-->18-->13.6 # Anemia due to hemodilution --> if lower than 10, get workup --> transfuse prn --> hgb 11-->10-->7.4-->9->8.8-->8.9-->8.2-->9 # Thrombocytopenia due to underlying infection --> medications have been reviewed --> 186-->127-->105->160 --> is on hep, monitor --> smear has been reviewed --> hep and hiv neg # Trach, vent. # Dysphagia, on G-tube. 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 # Diabetes. # Hypertension. # Acute renal failure. # GERD. # Dvt ppx heparin sq Appreciate consultation and anil RN Subjective Allergies: Coded Allergies: No Known Allergies (Unverified , 08/01/20) All Systems: reviewed and negative except above Subjective 08/04 remains on vent, abx, labs reviewed, meds noted 08/06 hd prn, no bleeding,with mota and rectal tube, labs noted 08/07 tolerating gt feeds, no new events overnight, anil rn 08/08 nv, vent, tolerating tube feeds, labs noted 08/09 nv, vent, tolerating tube feeds, labs pending 08/10 nv, trach/vent, no new events, labs are noted, comfortable 08/11 nv, trach/vent, no new events, no night sweats, abx 1:remains on abx treatment no bleeding reported 08/13: tolerating vent settings, no distress 08/14 labs reviewed, meds noted, on vent, no bleeding 08/15 nv, t/v, hgb 9 today, no bleeding, other labs noted Objective Objective Current Medications Medications (Trade) Dose Ordered Sig/Maegan Route PRN Reason Start Time Stop Time Status Last Admin Dose Admin Acetaminophen (Tylenol) 650 mg Q4H PRN GT For Pain 08/02/20 15:45 09/01/20 15:44 08/13/20 23:47 Acetaminophen (Tylenol) 650 mg Q4H PRN GT Temp >100.5 08/02/20 15:45 09/01/20 15:44 Amlodipine Besylate (Norvasc) 5 mg Q12HR ORAL 08/14/20 12:00 09/13/20 11:59 08/14/20 20:21 Calcium Acetate (Phoslo) 1,334 mg TIAC GT 08/09/20 16:30 11/03/20 11:29 08/15/20 05:41 Dextrose 1,000 ml @ 0 mls/hr Q0M IV 08/02/20 09:15 09/01/20 09:14 Gadobutrol (Gadavist) 7.5 mmol NOW PRN IV Radiology Procedure 08/12/20 20:45 08/16/20 20:44 Heparin Sodium (Porcine) (Heparin 5000 units/ml) 5,000 units EVERY 12 HOURS SUBQ 08/02/20 21:00 09/16/20 20:59 08/14/20 20:20 Hydralazine HCl (Apresoline) 10 mg Q4H PRN IV sbp >160 08/11/20 13:45 11/09/20 13:44 08/14/20 12:08 Lansoprazole (Prevacid) 30 mg DAILY GT 08/10/20 09:00 09/09/20 08:59 08/14/20 09:29 Levofloxacin 50 ml @ 50 mls/hr Q24H IVPB 08/15/20 00:00 08/22/20 00:00 08/15/20 00:22 Loperamide HCl (Imodium) 1 mg Q8H PRN GT Diarrhea 08/15/20 06:45 09/14/20 06:44 Metoclopramide HCl (Reglan) 10 mg Q6H PRN IVP Nausea & Vomiting 08/05/20 14:15 09/04/20 14:14 08/07/20 04:38 Metoprolol Tartrate (Lopressor) 50 mg BID GT 08/12/20 18:00 11/07/20 05:59 08/14/20 17:00 Piperacillin Sod/ Tazobactam Sod 3.375 gm/Sodium Chloride 110 ml @ 27.5 mls/hr EVERY 8 HOURS IVPB 08/14/20 06:00 08/19/20 05:59 08/15/20 05:41 Last 24 Hour Vital Signs Date Time Temp Pulse Resp B/P (MAP) Pulse Ox O2 Delivery O2 Flow Rate FiO2 08/15/20 04:00 Mechanical Ventilator 08/15/20 04:00 97.9 104 21 160/93 (115) 99 08/15/20 04:00 30 08/15/20 04:00 108 08/15/20 03:16 90 19 30 08/15/20 00:00 96 08/15/20 00:00 Mechanical Ventilator 08/15/20 00:00 97.9 94 16 160/83 (108) 99 08/14/20 22:31 93 16 30 08/14/20 21:00 Mechanical Ventilator 08/14/20 20:21 85 160/92 08/14/20 20:00 95 08/14/20 20:00 30 08/14/20 20:00 97.7 85 19 160/92 (114) 99 08/14/20 19:42 83 19 30 08/14/20 17:00 109 133/85 08/14/20 16:00 Mechanical Ventilator 08/14/20 16:00 30 08/14/20 15:58 98.1 109 17 133/85 (101) 99 08/14/20 15:47 109 16 30 08/14/20 15:18 116 08/14/20 12:08 92 167/103 08/14/20 12:08 167/103 08/14/20 12:00 30 08/14/20 12:00 Mechanical Ventilator 08/14/20 11:58 97.7 92 18 167/103 (124) 99 08/14/20 11:36 96 08/14/20 10:49 96 16 30 08/14/20 09:29 107 155/93 08/14/20 08:00 30 08/14/20 08:00 97.7 107 17 155/93 (113) 98 08/14/20 08:00 Mechanical Ventilator 08/14/20 07:51 114 08/14/20 07:36 111 18 30 08/14/20 04:00 97.9 102 16 158/84 (108) 100 08/14/20 04:00 Mechanical Ventilator 08/14/20 04:00 102 08/14/20 04:00 30 08/14/20 03:28 163/102 08/14/20 00:22 85 16 30 08/14/20 00:00 30 08/14/20 00:00 97.9 84 16 162/90 (114) 100 08/14/20 00:00 Mechanical Ventilator 08/14/20 00:00 101 08/13/20 20:21 200/114 08/13/20 20:00 Mechanical Ventilator 08/13/20 20:00 78 08/13/20 20:00 97.9 86 16 200/114 (142) 100 08/13/20 20:00 30 08/13/20 19:30 82 16 30 08/13/20 17:49 85 161/91 08/13/20 16:00 Mechanical Ventilator 08/13/20 16:00 97.5 85 17 161/91 (114) 100 08/13/20 16:00 30 08/13/20 15:24 75 08/13/20 13:28 89 16 30 08/13/20 12:01 89 08/13/20 12:00 30 08/13/20 12:00 97.0 105 23 152/98 (116) 100 08/13/20 12:00 Mechanical Ventilator 08/13/20 08:58 100 186/93 08/13/20 08:00 30 08/13/20 08:00 97.2 83 16 184/98 (126) 97 08/13/20 08:00 Mechanical Ventilator 08/13/20 07:46 90 08/13/20 07:34 92 16 30 Intake and Output 08/14/20 08/15/20 19:00 07:00 Intake Total 750.0 ml 635.7 ml Output Total 700 ml 1400 ml Balance 50.0 ml -764.3 ml Intake Free Water 160 ml IV Total 110.0 ml 195.7 ml Tube Feeding 480 ml 440 ml Output Urine Total 550 ml 1300 ml Stool Total 150 ml 100 ml Labs Test 08/12/20 12:20 08/12/20 17:43 08/13/20 03:20 08/14/20 03:42 POC Whole Blood Glucose 146 MG/DL (74-106) 151 MG/DL (74-106) White Blood Count 12.7 K/UL (4.8-10.8) 12.7 K/UL (4.8-10.8) Red Blood Count 2.77 M/UL (4.70-6.10) 2.75 M/UL (4.70-6.10) Hemoglobin 8.6 G/DL (14.2-18.0) 8.5 G/DL (14.2-18.0) Hematocrit 25.4 % (42.0-52.0) 26.4 % (42.0-52.0) Mean Corpuscular Volume 92 FL (80-99) 96 FL (80-99) Mean Corpuscular Hemoglobin 31.1 PG (27.0-31.0) 31.1 PG (27.0-31.0) Mean Corpuscular Hemoglobin Concent 33.9 G/DL (32.0-36.0) 32.3 G/DL (32.0-36.0) Red Cell Distribution Width 16.6 % (11.6-14.8) 15.1 % (11.6-14.8) Platelet Count 270 K/UL (150-450) 262 K/UL (150-450) Mean Platelet Volume 6.3 FL (6.5-10.1) 5.9 FL (6.5-10.1) Neutrophils (%) (Auto) 78.3 % (45.0-75.0) 80.5 % (45.0-75.0) Lymphocytes (%) (Auto) 13.5 % (20.0-45.0) 11.8 % (20.0-45.0) Monocytes (%) (Auto) 6.9 % (1.0-10.0) 6.2 % (1.0-10.0) Eosinophils (%) (Auto) 0.1 % (0.0-3.0) 0.8 % (0.0-3.0) Basophils (%) (Auto) 1.1 % (0.0-2.0) 0.8 % (0.0-2.0) Sodium Level 144 MMOL/L (136-145) 144 MMOL/L (136-145) Potassium Level 3.4 MMOL/L (3.5-5.1) 3.5 MMOL/L (3.5-5.1) Chloride Level 109 MMOL/L (98-107) 108 MMOL/L (98-107) Carbon Dioxide Level 27 MMOL/L (21-32) 26 MMOL/L (21-32) Anion Gap 8 mmol/L (5-15) 10 mmol/L (5-15) Blood Urea Nitrogen 64 mg/dL (7-18) 58 mg/dL (7-18) Creatinine 1.7 MG/DL (0.55-1.30) 1.6 MG/DL (0.55-1.30) Estimat Glomerular Filtration Rate 40.5 mL/min (>60) 43.5 mL/min (>60) Glucose Level 143 MG/DL (74-106) 131 MG/DL (74-106) Calcium Level 9.1 MG/DL (8.5-10.1) 9.0 MG/DL (8.5-10.1) Phosphorus Level 4.3 MG/DL (2.5-4.9) 3.6 MG/DL (2.5-4.9) Magnesium Level 2.3 MG/DL (1.8-2.4) 2.2 MG/DL (1.8-2.4) Total Bilirubin 0.4 MG/DL (0.2-1.0) 0.4 MG/DL (0.2-1.0) Aspartate Amino Transf (AST/SGOT) 35 U/L (15-37) 36 U/L (15-37) Alanine Aminotransferase (ALT/SGPT) 89 U/L (12-78) 85 U/L (12-78) Alkaline Phosphatase 104 U/L (46-116) 97 U/L (46-116) Total Protein 6.4 G/DL (6.4-8.2) 6.7 G/DL (6.4-8.2) Albumin 2.1 G/DL (3.4-5.0) 2.1 G/DL (3.4-5.0) Globulin 4.3 g/dL 4.6 g/dL Albumin/Globulin Ratio 0.5 (1.0-2.7) 0.5 (1.0-2.7) Random Vancomycin Level 20.3 ug/mL 33.7 ug/mL Test 08/15/20 03:45 White Blood Count 11.3 K/UL (4.8-10.8) Red Blood Count 2.85 M/UL (4.70-6.10) Hemoglobin 9.0 G/DL (14.2-18.0) Hematocrit 26.5 % (42.0-52.0) Mean Corpuscular Volume 93 FL (80-99) Mean Corpuscular Hemoglobin 31.5 PG (27.0-31.0) Mean Corpuscular Hemoglobin Concent 34.0 G/DL (32.0-36.0) Red Cell Distribution Width 15.7 % (11.6-14.8) Platelet Count 275 K/UL (150-450) Mean Platelet Volume 6.1 FL (6.5-10.1) Neutrophils (%) (Auto) 81.1 % (45.0-75.0) Lymphocytes (%) (Auto) 9.8 % (20.0-45.0) Monocytes (%) (Auto) 7.6 % (1.0-10.0) Eosinophils (%) (Auto) 0.4 % (0.0-3.0) Basophils (%) (Auto) 1.1 % (0.0-2.0) Height (Feet): 5 Height (Inches): 7.00 Weight (Pounds): 175 Objective Physical Exam General Appearance: lethargic Lines, tubes and drains: trach+++ vent++++ HEENT: normocephalic, atraumatic, mucous membranes moist Neck: normal alignment Respiratory/Chest: rhonchi - bilaterally Cardiovascular/Chest: normal peripheral pulses, regular rhythm Abdomen: soft, no mass, ++ feeding tube Extremities: no edema, no cyanosis Skin Exam: normal pigmentation, warm/dry Neurologic: unresponsiveness Karthik Mercedes MD Aug 15, 2020 06:47
[2020-08-15 07:15] LABS: ALBUMIN 2.2 G/DL (3.4-5.0); ALBUMIN/GLOBULIN RATIO 0.5 (1.0-2.7); BILIRUBIN,TOTAL 0.5 MG/DL (0.2-1.0); CALCIUM 9.6 MG/DL (8.5-10.1); CREATININE 1.7 MG/DL (0.55-1.30); POTASSIUM 3.4 MMOL/L (3.5-5.1)
[2020-08-15] MEDS: Metoprolol Tartrate 50mg tab GT SCH ×2 (08:22→18:41)
[2020-08-15] MEDS: Heparin 5000 units/ml inj SUBQ SCH (08:24)
--- NOTE | 2020-08-15 08:30 | Diagnostic Imaging Report ---
Indication: Cough Technique: One view of the chest Comparison: 08/11/2020 Findings: Tracheostomy is unchanged. Interim removal of temporary dialysis catheter. Lungs and pleural spaces are clear. The heart size is normal Impression: No acute process Note interim dialysis catheter removal
--- NOTE | 2020-08-15 10:53 | Cardiac Electrophysiology PN ---
Assessment/Plan Assessment/Plan 1. Troponin elevation. Levels are coming down at 0.8 to 0.5. Due to renal failure with BUN of 343, creatinine of 4.1 as well as sepsis with white count of 22,000. His EKG also shows sinus rhythm with inferolateral ischemia. On Lopressor 50 bid. 2. Shortness of breath with respiratory failure, status post tracheostomy, on the ventilator with 30% FiO2. 3. Accelerated HTN with BP in 190 despite Amlodipine 5 bid added to Lopressor 50 bid Add Hydralazine 50 po bid 4. S/P Acute renal failure with BUN of 343, creatinine of 4.1. S/P Right IJ Nicholas catheter 08/07. Removed yesterday Had first HD on 08/03. No more dialysis for now as BUN 65 and Cr 1.6 5. Diabetes. 6. History of left thalamic hemorrhage. 7. Dysphagia, status post PEG placement. Subjective Subjective Had removal of the Right IJ Nicholas catheter by Dr Brand since no more need for HD. On the vent with 30% Fio2 via trach. BP running in 190s again Objective Last 24 Hour Vital Signs Date Time Temp Pulse Resp B/P (MAP) Pulse Ox O2 Delivery O2 Flow Rate FiO2 08/15/20 08:38 108 08/15/20 08:24 192/99 08/15/20 08:22 109 192/99 08/15/20 08:22 109 192/99 08/15/20 08:00 Mechanical Ventilator 08/15/20 08:00 97.9 109 20 192/99 (130) 99 08/15/20 08:00 30 08/15/20 07:00 109 16 30 08/15/20 04:00 Mechanical Ventilator 08/15/20 04:00 97.9 104 21 160/93 (115) 99 08/15/20 04:00 30 08/15/20 04:00 108 08/15/20 03:16 90 19 30 08/15/20 00:00 96 08/15/20 00:00 Mechanical Ventilator 08/15/20 00:00 97.9 94 16 160/83 (108) 99 08/14/20 22:31 93 16 30 08/14/20 21:00 Mechanical Ventilator 08/14/20 20:21 85 160/92 08/14/20 20:00 95 08/14/20 20:00 30 08/14/20 20:00 97.7 85 19 160/92 (114) 99 08/14/20 19:42 83 19 30 08/14/20 17:00 109 133/85 08/14/20 16:00 Mechanical Ventilator 08/14/20 16:00 30 08/14/20 15:58 98.1 109 17 133/85 (101) 99 08/14/20 15:47 109 16 30 08/14/20 15:18 116 08/14/20 12:08 92 167/103 08/14/20 12:08 167/103 08/14/20 12:00 30 08/14/20 12:00 Mechanical Ventilator 08/14/20 11:58 97.7 92 18 167/103 (124) 99 08/14/20 11:36 96 Intake and Output 08/14/20 08/15/20 18:59 06:59 Intake Total 690.0 ml 735.7 ml Output Total 700 ml 1400 ml Balance -10.0 ml -664.3 ml Intake Free Water 100 ml 60 ml IV Total 110.0 ml 195.7 ml Tube Feeding 480 ml 480 ml Output Urine Total 550 ml 1300 ml Stool Total 150 ml 100 ml Laboratory Tests Test 08/15/20 03:45 White Blood Count 11.3 K/UL (4.8-10.8) H Red Blood Count 2.85 M/UL (4.70-6.10) L Hemoglobin 9.0 G/DL (14.2-18.0) L Hematocrit 26.5 % (42.0-52.0) L Mean Corpuscular Volume 93 FL (80-99) Mean Corpuscular Hemoglobin 31.5 PG (27.0-31.0) H Mean Corpuscular Hemoglobin Concent 34.0 G/DL (32.0-36.0) Red Cell Distribution Width 15.7 % (11.6-14.8) H Platelet Count 275 K/UL (150-450) Mean Platelet Volume 6.1 FL (6.5-10.1) L Neutrophils (%) (Auto) 81.1 % (45.0-75.0) H Lymphocytes (%) (Auto) 9.8 % (20.0-45.0) L Monocytes (%) (Auto) 7.6 % (1.0-10.0) Eosinophils (%) (Auto) 0.4 % (0.0-3.0) Basophils (%) (Auto) 1.1 % (0.0-2.0) Sodium Level 144 MMOL/L (136-145) Potassium Level 3.4 MMOL/L (3.5-5.1) L Chloride Level 107 MMOL/L (98-107) Carbon Dioxide Level 27 MMOL/L (21-32) Anion Gap 10 mmol/L (5-15) Blood Urea Nitrogen 58 mg/dL (7-18) H Creatinine 1.7 MG/DL (0.55-1.30) H Estimat Glomerular Filtration Rate 40.5 mL/min (>60) Glucose Level 126 MG/DL (74-106) H Calcium Level 9.6 MG/DL (8.5-10.1) Total Bilirubin 0.5 MG/DL (0.2-1.0) Aspartate Amino Transf (AST/SGOT) 31 U/L (15-37) Alanine Aminotransferase (ALT/SGPT) 68 U/L (12-78) Alkaline Phosphatase 94 U/L (46-116) Total Protein 6.7 G/DL (6.4-8.2) Albumin 2.2 G/DL (3.4-5.0) L Globulin 4.5 g/dL Albumin/Globulin Ratio 0.5 (1.0-2.7) L Objective HEAD AND NECK: S/P tracheostomy with no JVD. LUNGS: Coarse rhonchi. CARDIOVASCULAR: Regular S1 and S2 with no gallop. ABDOMEN: Status post G-tube. EXTREMITIES: No pitting edema. Gregorio Mari MD Aug 15, 2020 10:53
--- NOTE | 2020-08-15 11:19 | Pulmonology Progress Note ---
Subjective ROS Limited/Unobtainable: Yes Interval Events: No new events Constitutional: Reports: fatigue, other - + trach and vent ; Denies: fever HEENT: Repors: no symptoms Respiratory: Reports: no symptoms Cardiovascular: Reports: no symptoms Gastrointestinal/Abdominal: Reports: diarrhea, other - + rectal tube ; Denies: nausea, vomiting Psychiatric: Reports: other - NA Skin: Denies: rash Musculoskeletal: Reports: other - NA Allergies: Coded Allergies: No Known Allergies (Unverified , 08/01/20) All Systems: reviewed and negative except above Objective Last 24 Hour Vital Signs Date Time Temp Pulse Resp B/P (MAP) Pulse Ox O2 Delivery O2 Flow Rate FiO2 08/15/20 11:00 97 16 30 08/15/20 08:38 108 08/15/20 08:24 192/99 08/15/20 08:22 109 192/99 08/15/20 08:22 109 192/99 08/15/20 08:00 Mechanical Ventilator 08/15/20 08:00 97.9 109 20 192/99 (130) 99 08/15/20 08:00 30 08/15/20 07:00 109 16 30 08/15/20 04:00 Mechanical Ventilator 08/15/20 04:00 97.9 104 21 160/93 (115) 99 08/15/20 04:00 30 08/15/20 04:00 108 08/15/20 03:16 90 19 30 08/15/20 00:00 96 08/15/20 00:00 Mechanical Ventilator 08/15/20 00:00 97.9 94 16 160/83 (108) 99 08/14/20 22:31 93 16 30 08/14/20 21:00 Mechanical Ventilator 08/14/20 20:21 85 160/92 08/14/20 20:00 95 08/14/20 20:00 30 08/14/20 20:00 97.7 85 19 160/92 (114) 99 08/14/20 19:42 83 19 30 08/14/20 17:00 109 133/85 08/14/20 16:00 Mechanical Ventilator 08/14/20 16:00 30 08/14/20 15:58 98.1 109 17 133/85 (101) 99 08/14/20 15:47 109 16 30 08/14/20 15:18 116 08/14/20 12:08 92 167/103 08/14/20 12:08 167/103 08/14/20 12:00 30 08/14/20 12:00 Mechanical Ventilator 08/14/20 11:58 97.7 92 18 167/103 (124) 99 08/14/20 11:36 96 Intake and Output 08/14/20 08/15/20 19:00 07:00 Intake Total 750.0 ml 635.7 ml Output Total 700 ml 1400 ml Balance 50.0 ml -764.3 ml Intake Free Water 160 ml IV Total 110.0 ml 195.7 ml Tube Feeding 480 ml 440 ml Output Urine Total 550 ml 1300 ml Stool Total 150 ml 100 ml Objective saturating well on current vent setting; s/p G tube General Appearance: WD/WN HEENT: normocephalic, status post trach Respiratory: chest wall non-tender Cardiovascular: normal peripheral pulses, normal rate Abdomen: normal bowel sounds Laboratory Tests 08/15/20 03:45: White Blood Count 11.3H, Red Blood Count 2.85L, Hemoglobin 9.0L, Hematocrit 26.5L, Mean Corpuscular Volume 93, Mean Corpuscular Hemoglobin 31.5H, Mean C orpuscular Hemoglobin Concent 34.0, Red Cell Distribution Width 15.7H, Platelet Count 275, Mean Platelet Volume 6.1L, Neutrophils (%) (Auto) 81.1H, Lymphocytes (%) (Auto) 9.8L, Monocytes (%) (Auto) 7.6, Eosinophils (%) (Auto) 0.4, Basophils (%) (Auto) 1.1, Sodium Level 144, Potassium Level 3.4L, Chloride Level 107, Carbon Dioxide Level 27, Anion Gap 10, Blood Urea Nitrogen 58H, Creatinine 1.7H, Estimat Glomerular Filtration Rate 40.5, Glucose Level 126H, Calcium Level 9.6, Total Bilirubin 0.5, Aspartate Amino Transf (AST/SGOT) 31, Alanine Aminotransferase (ALT/SGPT) 68, Alkaline Phosphatase 94, Total Protein 6.7, Albumin 2.2L, Globulin 4.5, Albumin/Globulin Ratio 0.5L Current Medications Medications (Trade) Dose Ordered Sig/Maegan Route PRN Reason Start Time Stop Time Status Last Admin Dose Admin Acetaminophen (Tylenol) 650 mg Q4H PRN GT For Pain 08/02/20 15:45 09/01/20 15:44 08/13/20 23:47 Acetaminophen (Tylenol) 650 mg Q4H PRN GT Temp >100.5 08/02/20 15:45 09/01/20 15:44 Amlodipine Besylate (Norvasc) 5 mg Q12HR ORAL 08/14/20 12:00 09/13/20 11:59 08/15/20 08:22 Calcium Acetate (Phoslo) 1,334 mg TIAC GT 08/09/20 16:30 11/03/20 11:29 08/15/20 05:41 Dextrose 1,000 ml @ 0 mls/hr Q0M IV 08/02/20 09:15 09/01/20 09:14 Gadobutrol (Gadavist) 7.5 mmol NOW PRN IV Radiology Procedure 08/12/20 20:45 08/16/20 20:44 Heparin Sodium (Porcine) (Heparin 5000 units/ml) 5,000 units EVERY 12 HOURS SUBQ 08/02/20 21:00 09/16/20 20:59 08/15/20 08:24 Hydralazine HCl (Apresoline) 10 mg Q4H PRN IV sbp >160 08/11/20 13:45 11/09/20 13:44 08/15/20 08:24 Hydralazine HCl (Apresoline) 50 mg BID GT 08/15/20 18:00 11/13/20 17:59 Lansoprazole (Prevacid) 30 mg DAILY GT 08/10/20 09:00 09/09/20 08:59 08/15/20 08:22 Levofloxacin 50 ml @ 50 mls/hr Q24H IVPB 08/15/20 00:00 08/22/20 00:00 08/15/20 00:22 Loperamide HCl (Imodium) 1 mg Q8H PRN GT Diarrhea 08/15/20 06:45 09/14/20 06:44 08/15/20 07:06 Metoclopramide HCl (Reglan) 10 mg Q6H PRN IVP Nausea & Vomiting 08/05/20 14:15 09/04/20 14:14 08/07/20 04:38 Metoprolol Tartrate (Lopressor) 50 mg BID GT 08/12/20 18:00 11/07/20 05:59 08/15/20 08:22 Piperacillin Sod/ Tazobactam Sod 3.375 gm/Sodium Chloride 110 ml @ 27.5 mls/hr EVERY 8 HOURS IVPB 08/14/20 06:00 08/19/20 05:59 08/15/20 05:41 Assessment/Plan Assessment/Plan 1. Chronic respiratory failure. Chronic tracheostomy 2. Metabolic acidosis. On hemodialysis 3. Renal failure. HD per renal 4. Leukocytosis. 5. Sepsis. Source unclear; C dif negative; CXR clear DISCUSSION: Agree with broad spectrum antibiotics. We will continue AC mode. Currently FiO2 30%; PEEP 5 Discontinued bicarbonate supplementation. Noted plans for HD Hemodynamically stable We will follow carefully. Stool OB positive CXR 08/11 shows mild atelectasis CXR 08/15 no acute process D dimer 2.35; lower than prior Doubt embolic phenomenon The care for this patient was discussed with my supervising physician Time spent for this case was approximately 31 minutes Jarek Campos Aug 15, 2020 11:19
--- NOTE | 2020-08-15 13:58 | Nephrology Progress Note ---
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 per daughter #Uremia #Anemia #Pneumonia #sepsis - lasix 60 IV today - replete - for now hold off HD- Cr seems to be stabilizing -ok to remove HD catheter - monitor labs - add sevelamer - monitor ABG - antibiotics per ID - avoid nephrotoxins - monitor UOP - monitor electrolytes time spent 65 min Subjective ROS Limited/Unobtainable: Yes Subjective Cr stable replete k lasix 60 IV ok to remove HD catheter Objective Objective Last 24 Hour Vital Signs Date Time Temp Pulse Resp B/P (MAP) Pulse Ox O2 Delivery O2 Flow Rate FiO2 08/15/20 12:30 88 08/15/20 11:00 97 16 30 08/15/20 08:38 108 08/15/20 08:24 192/99 08/15/20 08:22 109 192/99 08/15/20 08:22 109 192/99 08/15/20 08:00 Mechanical Ventilator 08/15/20 08:00 97.9 109 20 192/99 (130) 99 08/15/20 08:00 30 08/15/20 07:00 109 16 30 08/15/20 04:00 Mechanical Ventilator 08/15/20 04:00 97.9 104 21 160/93 (115) 99 08/15/20 04:00 30 08/15/20 04:00 108 08/15/20 03:16 90 19 30 08/15/20 00:00 96 08/15/20 00:00 Mechanical Ventilator 08/15/20 00:00 97.9 94 16 160/83 (108) 99 08/14/20 22:31 93 16 30 08/14/20 21:00 Mechanical Ventilator 08/14/20 20:21 85 160/92 08/14/20 20:00 95 08/14/20 20:00 30 08/14/20 20:00 97.7 85 19 160/92 (114) 99 08/14/20 19:42 83 19 30 08/14/20 17:00 109 133/85 08/14/20 16:00 Mechanical Ventilator 08/14/20 16:00 30 08/14/20 15:58 98.1 109 17 133/85 (101) 99 08/14/20 15:47 109 16 30 08/14/20 15:18 116 Intake and Output 08/14/20 08/15/20 19:00 07:00 Intake Total 750.0 ml 635.7 ml Output Total 700 ml 1400 ml Balance 50.0 ml -764.3 ml Intake Free Water 160 ml IV Total 110.0 ml 195.7 ml Tube Feeding 480 ml 440 ml Output Urine Total 550 ml 1300 ml Stool Total 150 ml 100 ml Laboratory Tests 08/15/20 03:45: White Blood Count 11.3H, Red Blood Count 2.85L, Hemoglobin 9.0L, Hematocrit 26.5L, Mean Corpuscular Volume 93, Mean Corpuscular Hemoglobin 31.5H, Mean Corpuscular Hemoglobin Concent 34.0, Red Cell Distribution Width 15.7H, Platelet Count 275, Mean Platelet Volume 6.1L, Neutrophils (%) (Auto) 81.1H, Lymphocytes (%) (Auto) 9.8L, Monocytes (%) (Auto) 7.6, Eosinophils (%) (Auto) 0.4, Basophils (%) (Auto) 1.1, Sodium Level 144, Potassium Level 3.4L, Chloride Level 107, Carbon Dioxide Level 27, Anion Gap 10, Blood Urea Nitrogen 58H, Creatinine 1.7H, Estimat Glomerular Filtration Rate 40.5, Glucose Level 126H, Calcium Level 9.6, Total Bilirubin 0.5, Aspartate Amino Transf (AST/SGOT) 31, Alanine Aminotransferase (ALT/SGPT) 68, Alkaline Phosphatase 94, Total Protein 6.7, Albumin 2.2L, Globulin 4.5, Albumin/Globulin Ratio 0.5L Height (Feet): 5 Height (Inches): 7.00 Weight (Pounds): 175 Objective General Appearance: other - non interactive Cardiovascular: normal rate, regular rhythm Respiratory/Chest: no respiratory distress, other - Trach on Vent Abdomen: soft, other - Rectal tube in place Extremities: other - bedbound Neurologic: other - non interactive at baseline Skin: warm/dry Gladys Sherman M.D. Aug 15, 2020 13:58
[2020-08-15] MEDS ORDERED: HydrALAZINE 50mg tab GT SCH ×2 (14:00→18:00)
--- NOTE | 2020-08-15 14:58 | Surgery Progress Note ---
Surgery Progress Note Subjective Procedure Performed right femoral temporary hemodialysis catheter insertion Additional Comments no bleeding from catheter site no n/v comfortable appearing otherwise Objective Last 24 Hour Vital Signs Date Time Temp Pulse Resp B/P (MAP) Pulse Ox O2 Delivery O2 Flow Rate FiO2 08/15/20 14:20 142/80 08/15/20 12:30 88 08/15/20 12:00 97.9 94 18 142/80 (100) 98 08/15/20 11:00 97 16 30 08/15/20 08:38 108 08/15/20 08:24 192/99 08/15/20 08:22 109 192/99 08/15/20 08:22 109 192/99 08/15/20 08:00 Mechanical Ventilator 08/15/20 08:00 97.9 109 20 192/99 (130) 99 08/15/20 08:00 30 08/15/20 07:00 109 16 30 08/15/20 04:00 Mechanical Ventilator 08/15/20 04:00 97.9 104 21 160/93 (115) 99 08/15/20 04:00 30 08/15/20 04:00 108 08/15/20 03:16 90 19 30 08/15/20 00:00 96 08/15/20 00:00 Mechanical Ventilator 08/15/20 00:00 97.9 94 16 160/83 (108) 99 08/14/20 22:31 93 16 30 08/14/20 21:00 Mechanical Ventilator 08/14/20 20:21 85 160/92 08/14/20 20:00 95 08/14/20 20:00 30 08/14/20 20:00 97.7 85 19 160/92 (114) 99 08/14/20 19:42 83 19 30 08/14/20 17:00 109 133/85 08/14/20 16:00 Mechanical Ventilator 08/14/20 16:00 30 08/14/20 15:58 98.1 109 17 133/85 (101) 99 08/14/20 15:47 109 16 30 08/14/20 15:18 116 I&O Intake and Output 08/14/20 08/15/20 19:00 07:00 Intake Total 750.0 ml 635.7 ml Output Total 700 ml 1400 ml Balance 50.0 ml -764.3 ml Intake Free Water 160 ml IV Total 110.0 ml 195.7 ml Tube Feeding 480 ml 440 ml Output Urine Total 550 ml 1300 ml Stool Total 150 ml 100 ml Dressing: saturated Cardiovascular: RSR Respiratory: decreased breath sounds Abdomen: soft, non-tender, present bowel sounds, non-distended Extremities: no tenderness, no cyanosis Laboratory Tests Test 08/15/20 03:45 White Blood Count 11.3 K/UL (4.8-10.8) H Red Blood Count 2.85 M/UL (4.70-6.10) L Hemoglobin 9.0 G/DL (14.2-18.0) L Hematocrit 26.5 % (42.0-52.0) L Mean Corpuscular Volume 93 FL (80-99) Mean Corpuscular Hemoglobin 31.5 PG (27.0-31.0) H Mean Corpuscular Hemoglobin Concent 34.0 G/DL (32.0-36.0) Red Cell Distribution Width 15.7 % (11.6-14.8) H Platelet Count 275 K/UL (150-450) Mean Platelet Volume 6.1 FL (6.5-10.1) L Neutrophils (%) (Auto) 81.1 % (45.0-75.0) H Lymphocytes (%) (Auto) 9.8 % (20.0-45.0) L Monocytes (%) (Auto) 7.6 % (1.0-10.0) Eosinophils (%) (Auto) 0.4 % (0.0-3.0) Basophils (%) (Auto) 1.1 % (0.0-2.0) Sodium Level 144 MMOL/L (136-145) Potassium Level 3.4 MMOL/L (3.5-5.1) L Chloride Level 107 MMOL/L (98-107) Carbon Dioxide Level 27 MMOL/L (21-32) Anion Gap 10 mmol/L (5-15) Blood Urea Nitrogen 58 mg/dL (7-18) H Creatinine 1.7 MG/DL (0.55-1.30) H Estimat Glomerular Filtration Rate 40.5 mL/min (>60) Glucose Level 126 MG/DL (74-106) H Calcium Level 9.6 MG/DL (8.5-10.1) Total Bilirubin 0.5 MG/DL (0.2-1.0) Aspartate Amino Transf (AST/SGOT) 31 U/L (15-37) Alanine Aminotransferase (ALT/SGPT) 68 U/L (12-78) Alkaline Phosphatase 94 U/L (46-116) Total Protein 6.7 G/DL (6.4-8.2) Albumin 2.2 G/DL (3.4-5.0) L Globulin 4.5 g/dL Albumin/Globulin Ratio 0.5 (1.0-2.7) L Plan Problems: (1) Respiratory distress (2) Renal failure Assessment & Plan: plan HD line soon temp hd consent from daughter (3) Metabolic acidosis (4) NSTEMI (non-ST elevated myocardial infarction) (5) Sepsis Assessment & Plan: okay for tf iv fluids vent via trach weaning vent g tube okay decubitus eval done and local care provided labs noted acidosis plan HD cont abx as per ID will follow with recs thank you DAILY ESTIMATED NEEDS: Needs based on Critical care, wound, AUNDREA/ 62.7kg 22-28 kcals/kg [id number] total kcals 0.8-1.25 (increase w/ renal fxn improvement) g protein/kg 50-78 g total protein 20-25 mL/kg [id number] total fluid mLs NUTRITION DIAGNOSIS: Swallowing difficulty R/T respiratory failure as evidenced by trach/vent dep, PEG dep. CURRENT TF: NPO ENTERAL NUTRITION RECOMMENDATIONS: Nepro @ 35ml/hr x 24 hrs to provide 840ml, 1512kcal, 68g prot, 611ml free water * As medically appropriate, initiate Nepro, rec goal rate of 35ml/hr x 24 hrs * HOB over 30 degrees/ water flush per MD ADDITIONAL RECOMMENDATIONS: * Per SNF: HT=68" and FR=833xwf -> daily calibrated bedscale wt * Monitor renal fxn and lytes, ability to increase est prot needs * NISS w/ TF -> h/o DM * Probiotics for diarrhea * Wound healing: Add Nephrovite x 1, ZnSO4 220mg QD x 10 days Kenji BID w/ TF Rohit Brand Aug 15, 2020 14:58
[2020-08-15] MEDS ORDERED: METOCLOPRAM5 MG/1 M1 IVP (16:56)
[2020-08-15] MEDS ORDERED: HEPARIN SO5000 UNIT2 SUBQ (16:56)
[2020-08-15] MEDS ORDERED: SALINE FLUSH IVF (16:56)
[2020-08-15] MEDS ORDERED: APRESOLINE50 MG GT (16:56)
[2020-08-15] MEDS ORDERED: LANSOPRAZOLE30 MG GT (16:56)
[2020-08-15] MEDS ORDERED: METOPROLOL TART50 MG GT (16:56)
[2020-08-15] MEDS ORDERED: LEVOFLOXAC250 MG/50 IVPB (16:56)
[2020-08-15] MEDS ORDERED: NORVASC5 MG ORAL (16:56)
[2020-08-15] MEDS ORDERED: CALCIUM ACETAT667 M1 GT (16:56)
[2020-08-15] MEDS ORDERED: ZOSYN 3.373.375 GM/1 IVPB (16:56)
[2020-08-15] MEDS ORDERED: APRESOLINE20 MG/ML IV (16:56)
--- NOTE | 2020-08-15 16:58 | Discharge Instructions ---
Discharge Instructions Discharge Instructions Follow up with: primary care physician within 7-14 days Call MD/Return to Hospital if: symptoms worsen or fail to improve Diet: tube feeding Follow Up Orders Follow up with primary care physician in 7-14 days. Follow up with nephrology Dr. Sherman. Continue antibiotics for 5 more days. Continue all other medications as directed. For Congestive Heart Failure Reminder Report to your physician any weight gain of 5 pounds or more in one week. Davidson Guzmán M.D. Aug 15, 2020 16:58
--- NOTE | 2020-08-15 17:13 | Discharge Summary ---
Discharge Summary Hospital Course Date of Admission Aug 01, 2020 at 15:48 Date of Discharge 08/15/2020 Admitting Diagnosis SEPSIS Reason for Hospitalization: Sepsis and renal failure CHANO Vega is a 65 year old male who was admitted on Aug 01, 2020 at 15:48 for Sepsis PMH of chronic respiratory failure s/p tracheostomy, left thalamic hemorrhage, diabetes, HTN, bedbound presents from SNF with hypoxia. According to ER physician, patient required bagging on arrival due to hypoxia that improved once patient placed on ventilator. Patient was given IVF bolus, antibiotics. History is limited secondary patient's clinical condition Consultations Nephrology, ID, Cardiology, Surgery, Pulmonology, Heme/Onc Procedures Dialysis catheter placement and removal. Hemodialysis Hospital Course Patient initially admitted to ICU for sepsis, respiratory distress and NSTEMI. Had renal failure and severe uremia, dialysis catheter placed and underwent several days of HD. Renal function improved and dialysis catheter eventually removed. Sepsis source thought to be pulmonary and receiving levaquin and zosyn. Will need antibiotics for 5 more days upon discharge. I spent 35 minutes on this discharge, including discussion with outsole caser, surgery and cardiology and pulmonology and ID consultants regarding medications for discharge. Time of note may not reflect time of encounter Discharge Medications New Medications: Amlodipine Besylate (Norvasc) 5 Mg Tablet 5 MG ORAL Q12HR for 30 Days, TAB Calcium Acetate (Calcium Acetate) 667 Mg Capsule 1334 MG GT TIAC for 30 Days, CAP Heparin Sod (Porcine) (Heparin Sodium*) 5 000/1 Ml Vial 5000 UNITS SUBQ EVERY 12 HOURS for 30 Days, VIAL Hydralazine HCl (Hydralazine HCl) 50 Mg Tablet 100 MG GT Q8HR for 30 Days, TAB Hydralazine HCl (Hydralazine HCl) 20 Mg/1 Ml Vial 10 MG IV Q4H PRN for 30 Days, VIAL Lansoprazole* (Lansoprazole*) 30 Mg Capsule.dr 30 MG GT DAILY for 30 Days, CAP Levofloxacin-D5w 250 Mg/50 Ml* (Levofloxacin-D5w 250 Mg/50 Ml*) 250 Mg/50 Ml Piggyback 250 MG IVPB Q24H for 5 Days, BAG Metoclopramide Hcl (Metoclopramide Hcl*) 5 Mg/1 Ml Vial 10 MG IVP Q6H PRN for 30 Days, VIAL Metoprolol Tartrate* (Metoprolol Tartrate*) 50 Mg Tablet 50 MG GT BID for 30 Days, TAB Rkfdgyylhlia-Ggtn-Ldlnwqtp,Iso (Zosyn 3.375 Gm Pre Mix-Bag) 3.375 Gm/50 Ml Froz.piggy 3.375 GM IVPB EVERY 8 HOURS for 5 Days, BAG [Saline 10ml Flush] () 10 ML SYR 10 ML IVF Q8H PRN Discharge Condition Upon Discharge: stable Discharge Vital Signs Last Vital Signs Date Time Temp Pulse Resp B/P (MAP) Pulse Ox O2 Delivery O2 Flow Rate FiO2 08/15/20 16:42 94 08/15/20 16:00 98.2 20 148/84 (105) 99 08/15/20 15:00 30 08/15/20 08:00 Mechanical Ventilator Exam on day of discharge General: Chronic trach/vent dependent male. Alert, not oriented HEENT: Normocephalic cephalic atraumatic, pupils equal round reactive to light and accommodation, nares patent and no symmetrical, no tonsillar exudates, mucous membranes moist + trach in place CV: Regular rate regular rhythm, no murmurs, rubs, or gallops Pulm: Lungs clear to auscultation bilaterally. No wheezes, rhonchi, or rales GI: Soft, nontender, nondistended, bowel sounds present Neuro: CN 2-12 intact bilaterally, no focal signs. UE and LE flaccid. Minimal response (baseline). Does not track. Ext: No lower extremity edema bilaterally + some UE and LE swelling bilaterally trace to 1+ Skin: no rashes lesions or ulcers Msk: Joints symmetrical in upper extremity and lower extremity bilaterally, no joint swelling. Lymph: No lymphadenopathy in upper extremity and lower extremity Discharge Disposition Patient was discharged to SNF Discharge Diagnoses: (1) Sepsis (2) Renal failure (3) NSTEMI (non-ST elevated myocardial infarction) (4) Respiratory distress (5) Metabolic acidosis Discharge Instructions Discharge Instructions Follow up with: primary care physician within 7-14 days Call MD/Return to Hospital if: symptoms worsen or fail to improve Davidson Guzmán M.D. Aug 15, 2020 17:13
--- NOTE | 2020-08-15 17:55 | Infectious Diseases Prog Note ---
Assessment/Plan Assessment/Plan ASSESSMENT AND PLAN: 1. sepsis, fevers and leukocytosis acinetobacter/enterobacter pneumonia/tracheobronchitis CT without abscess - zosyn and levofloxacin x 5 days - monitor labs and chest x-ray - stable ID standpoint - leukocytosis improved 2. Trach, vent. 3. Dysphagia, on G-tube. 4. 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 5. Diabetes. 6. Hypertension. 7. Blood sugar and blood pressure treatment per primary care team. 8. Acute renal failure. 9. Anemia. 10. Respiratory failure. 11. GERD. 12. Vent dependency. 13. No allergies. 14. Social history is negative. 15. Family history noncontributory. 16. MAR was noted. 17. Case was discussed with RN. Subjective Constitutional: Reports: other - trach and vent ; Denies: fever HEENT: Reports: congestion Respiratory: Reports: shortness of breath Cardiovascular: Reports: other - no pressors Gastrointestinal/Abdominal: Denies: nausea, vomiting, diarrhea Genitourinary: Reports: other - + mota Neurologic: Reports: other - weak and lethargic Psychiatric: Reports: other - NA Skin: Denies: rash Hematologic: Denies: bleeding Musculoskeletal: Denies: pain Allergies: Coded Allergies: No Known Allergies (Unverified , 08/01/20) Objective Last 24 Hour Vital Signs Date Time Temp Pulse Resp B/P (MAP) Pulse Ox O2 Delivery O2 Flow Rate FiO2 08/15/20 16:42 94 08/15/20 16:00 98.2 13 20 148/84 (105) 99 08/15/20 15:00 100 18 30 08/15/20 14:20 142/80 08/15/20 12:30 88 08/15/20 12:00 97.9 94 18 142/80 (100) 98 08/15/20 11:00 97 16 30 08/15/20 08:38 108 08/15/20 08:24 192/99 08/15/20 08:22 109 192/99 08/15/20 08:22 109 192/99 08/15/20 08:00 Mechanical Ventilator 08/15/20 08:00 97.9 109 20 192/99 (130) 99 08/15/20 08:00 30 08/15/20 07:00 109 16 30 08/15/20 04:00 Mechanical Ventilator 08/15/20 04:00 97.9 104 21 160/93 (115) 99 08/15/20 04:00 30 08/15/20 04:00 108 08/15/20 03:16 90 19 30 08/15/20 00:00 96 08/15/20 00:00 Mechanical Ventilator 08/15/20 00:00 97.9 94 16 160/83 (108) 99 08/14/20 22:31 93 16 30 08/14/20 21:00 Mechanical Ventilator 08/14/20 20:21 85 160/92 08/14/20 20:00 95 08/14/20 20:00 30 08/14/20 20:00 97.7 85 19 160/92 (114) 99 08/14/20 19:42 83 19 30 Height (Feet): 5 Height (Inches): 7.00 Weight (Pounds): 175 General Appearance: other - + trach and vent HEENT: normocephalic, atraumatic, anicteric, status post trach Respiratory/Chest: crackles/rales, rhonchi - bilaterally Cardiovascular: normal rate, regular rhythm, no gallop/murmur Abdomen: normal bowel sounds, soft, non tender, no organomegaly Genitourinary: other - + mota - urine slt cloudy Extremities: no cyanosis Skin: no rash Neurologic/Psychiatric: other - weak and on vent Lymphatic: no neck adenopathy Musculoskeletal: no effusion Chest x-ray - 08/03/20 - Procedure: XRAY Chest 1v Indication: Shortness of breath Technique: One view of the chest Comparison: 08/01/2020 Findings: Lungs and pleural spaces are clear. Heart size is normal. Tracheostomy again demonstrated. Findings are unchanged Impression: No acute process Chest x-ray - 08/09/20 - Procedure: XRAY Chest 1v Indication: Shortness of breath Technique: One view of the chest Comparison: 08/07/2020 Findings: Jugular temporary dialysis catheter is again demonstrated. There is some hazy very focal infiltrate in the left infrahilar region. The remainder of the lungs and pleural spaces remain clear. Impression: Very focal left infrahilar infiltrate, new since prior study, may indicate early pneumonia CT chest/abdomen and pelvis: IMPRESSION: No definite acute abnormality Lungs demonstrate posterior dependent atelectatic changes and a left upper lobe calcified granuloma Cardiomegaly Tracheostomy, temporary dialysis catheter, rectal tube, gastrostomy noted Moderate retained stool, could indicate constipation Empty bladder with a Mota catheter.. Bladder wall thickening. This could be an artifact of lack of distention, but the possibility of cystitis should also be considered. Correlate with clinical and laboratory findings Mild prostatomegaly Slight edema of the bilateral hip and subcutaneous fat Incidental finding of bilateral renal cysts Chest x-ray - 08/11/20: COMPARISON: Chest CT scan August 10, 2020. FINDINGS/IMPRESSION: Midline tracheostomy tube. Right IJ catheter terminates in the SVC. EKG leads overlie the patient. No focal consolidation, pleural effusion, or pneumothorax. Mild atelectasis within the lower lung johnson. The heart size is prominent. Degenerative changes of the spine. Chest x-ray - 08/15/20- Procedure: XRAY Chest 1v Indication: Cough Technique: One view of the chest Comparison: 08/11/2020 Findings: Tracheostomy is unchanged. Interim removal of temporary dialysis catheter. Lungs and pleural spaces are clear. The heart size is normal Impression: No acute process Note interim dialysis catheter removal Microbiology Date/Time Source Procedure Growth Status 08/10/20 11:20 Nasopharynx SARS-CoV-2 RdRp Gene Assay - Final Complete 08/10/20 03:25 Blood Blood Culture - Preliminary NO GROWTH AFTER 4 DAYS Resulted 08/09/20 23:00 Urine,Clean Catch Urine Culture - Final NO GROWTH AFTER 48 HOURS Complete 08/02/20 05:00 Rectum VRE Culture - Final NO VANCOMYCIN RESISTANT ENTEROCOCCUS ... Complete 08/02/20 05:00 Stool Clostridium difficile Toxin Assay - Final Complete Laboratory Tests Test 08/15/20 03:45 White Blood Count 11.3 K/UL (4.8-10.8) H Red Blood Count 2.85 M/UL (4.70-6.10) L Hemoglobin 9.0 G/DL (14.2-18.0) L Hematocrit 26.5 % (42.0-52.0) L Mean Corpuscular Volume 93 FL (80-99) Mean Corpuscular Hemoglobin 31.5 PG (27.0-31.0) H Mean Corpuscular Hemoglobin Concent 34.0 G/DL (32.0-36.0) Red Cell Distribution Width 15.7 % (11.6-14.8) H Platelet Count 275 K/UL (150-450) Mean Platelet Volume 6.1 FL (6.5-10.1) L Neutrophils (%) (Auto) 81.1 % (45.0-75.0) H Lymphocytes (%) (Auto) 9.8 % (20.0-45.0) L Monocytes (%) (Auto) 7.6 % (1.0-10.0) Eosinophils (%) (Auto) 0.4 % (0.0-3.0) Basophils (%) (Auto) 1.1 % (0.0-2.0) Sodium Level 144 MMOL/L (136-145) Potassium Level 3.4 MMOL/L (3.5-5.1) L Chloride Level 107 MMOL/L (98-107) Carbon Dioxide Level 27 MMOL/L (21-32) Anion Gap 10 mmol/L (5-15) Blood Urea Nitrogen 58 mg/dL (7-18) H Creatinine 1.7 MG/DL (0.55-1.30) H Estimat Glomerular Filtration Rate 40.5 mL/min (>60) Glucose Level 126 MG/DL (74-106) H Calcium Level 9.6 MG/DL (8.5-10.1) Total Bilirubin 0.5 MG/DL (0.2-1.0) Aspartate Amino Transf (AST/SGOT) 31 U/L (15-37) Alanine Aminotransferase (ALT/SGPT) 68 U/L (12-78) Alkaline Phosphatase 94 U/L (46-116) Total Protein 6.7 G/DL (6.4-8.2) Albumin 2.2 G/DL (3.4-5.0) L Globulin 4.5 g/dL Albumin/Globulin Ratio 0.5 (1.0-2.7) L Current Medications Medications (Trade) Dose Ordered Sig/Maegan Route PRN Reason Start Time Stop Time Status Last Admin Dose Admin Acetaminophen (Tylenol) 650 mg Q4H PRN GT For Pain 08/02/20 15:45 09/01/20 15:44 08/13/20 23:47 Acetaminophen (Tylenol) 650 mg Q4H PRN GT Temp >100.5 08/02/20 15:45 09/01/20 15:44 Amlodipine Besylate (Norvasc) 5 mg Q12HR ORAL 08/14/20 12:00 09/13/20 11:59 08/15/20 08:22 Calcium Acetate (Phoslo) 1,334 mg TIAC GT 08/09/20 16:30 11/03/20 11:29 08/15/20 11:18 Dextrose 1,000 ml @ 0 mls/hr Q0M IV 08/02/20 09:15 09/01/20 09:14 Gadobutrol (Gadavist) 7.5 mmol NOW PRN IV Radiology Procedure 08/12/20 20:45 08/16/20 20:44 Heparin Sodium (Porcine) (Heparin 5000 units/ml) 5,000 units EVERY 12 HOURS SUBQ 08/02/20 21:00 09/16/20 20:59 08/15/20 08:24 Hydralazine HCl (Apresoline) 10 mg Q4H PRN IV sbp >160 08/11/20 13:45 11/09/20 13:44 08/15/20 08:24 Hydralazine HCl (Apresoline) 100 mg Q8HR GT 08/15/20 14:00 11/13/20 13:59 08/15/20 14:20 Lansoprazole (Prevacid) 30 mg DAILY GT 08/10/20 09:00 09/09/20 08:59 08/15/20 08:22 Levofloxacin 50 ml @ 50 mls/hr Q24H IVPB 08/15/20 00:00 08/22/20 00:00 08/15/20 00:22 Loperamide HCl (Imodium) 1 mg Q8H PRN GT Diarrhea 08/15/20 06:45 09/14/20 06:44 08/15/20 07:06 Metoclopramide HCl (Reglan) 10 mg Q6H PRN IVP Nausea & Vomiting 08/05/20 14:15 09/04/20 14:14 08/07/20 04:38 Metoprolol Tartrate (Lopressor) 50 mg BID GT 08/12/20 18:00 11/07/20 05:59 08/15/20 08:22 Piperacillin Sod/ Tazobactam Sod 3.375 gm/Sodium Chloride 110 ml @ 27.5 mls/hr EVERY 8 HOURS IVPB 08/14/20 06:00 08/19/20 05:59 08/15/20 14:15 Calderon Vazquez MD Aug 15, 2020 17:55
[2020-08-15] MEDS ORDERED: NS 275ml ONE ×2 (20:59)
[2020-08-15] MEDS ORDERED: Tubing IV Secondary IV ONE (20:59)
--- NOTE | 2020-08-15 21:46 | Neurology Progress Note ---
Interim History Interim History ROS Limited/Unobtainable: Yes Interim History ok to dc FU outpt Objective Physical Exam Last Vital Signs Date Time Temp Pulse Resp B/P (MAP) Pulse Ox O2 Delivery O2 Flow Rate FiO2 08/15/20 20:13 82 158/92 08/15/20 20:00 Mechanical Ventilator 08/15/20 20:00 30 08/15/20 20:00 98.0 20 100 Laboratory Tests Test 08/15/20 03:45 White Blood Count 11.3 K/UL (4.8-10.8) H Red Blood Count 2.85 M/UL (4.70-6.10) L Hemoglobin 9.0 G/DL (14.2-18.0) L Hematocrit 26.5 % (42.0-52.0) L Mean Corpuscular Volume 93 FL (80-99) Mean Corpuscular Hemoglobin 31.5 PG (27.0-31.0) H Mean Corpuscular Hemoglobin Concent 34.0 G/DL (32.0-36.0) Red Cell Distribution Width 15.7 % (11.6-14.8) H Platelet Count 275 K/UL (150-450) Mean Platelet Volume 6.1 FL (6.5-10.1) L Neutrophils (%) (Auto) 81.1 % (45.0-75.0) H Lymphocytes (%) (Auto) 9.8 % (20.0-45.0) L Monocytes (%) (Auto) 7.6 % (1.0-10.0) Eosinophils (%) (Auto) 0.4 % (0.0-3.0) Basophils (%) (Auto) 1.1 % (0.0-2.0) Sodium Level 144 MMOL/L (136-145) Potassium Level 3.4 MMOL/L (3.5-5.1) L Chloride Level 107 MMOL/L (98-107) Carbon Dioxide Level 27 MMOL/L (21-32) Anion Gap 10 mmol/L (5-15) Blood Urea Nitrogen 58 mg/dL (7-18) H Creatinine 1.7 MG/DL (0.55-1.30) H Estimat Glomerular Filtration Rate 40.5 mL/min (>60) Glucose Level 126 MG/DL (74-106) H Calcium Level 9.6 MG/DL (8.5-10.1) Total Bilirubin 0.5 MG/DL (0.2-1.0) Aspartate Amino Transf (AST/SGOT) 31 U/L (15-37) Alanine Aminotransferase (ALT/SGPT) 68 U/L (12-78) Alkaline Phosphatase 94 U/L (46-116) Total Protein 6.7 G/DL (6.4-8.2) Albumin 2.2 G/DL (3.4-5.0) L Globulin 4.5 g/dL Albumin/Globulin Ratio 0.5 (1.0-2.7) L Neurologic Exam Objective trach tachy grimaces to pain lethargic Impression/Recommendations Problems: (1) Respiratory distress (2) Renal failure (3) Metabolic acidosis (4) NSTEMI (non-ST elevated myocardial infarction) (5) Sepsis Diagnostic Impression Encephalopathy, likely metabolic sepsis hx of left thalamic hemorrhage likely from htn Repeat ct brain in 1 month monitor mental status cont atb ok for heparin SC given ich is chronic Pedro Hale MD Aug 15, 2020 21:46
--- NOTE | 2020-08-16 02:08 | Cardiology Report ---
APPROVED REPORT EXAM: Two-dimensional and M-mode echocardiogram with Doppler and color Doppler. INDICATION Left ventricular function M-Mode DIMENSIONS IVSd0.9 (0.7-1.1cm)Left Atrium (MM)3.0 (1.6-4.0cm) LVDd5.1 (3.5-5.6cm)Aortic Root3.4 (2.0-3.7cm) PWd1.1 (0.7-1.1cm)Aortic Cusp Exc.2.1 (1.5-2.0cm) IVSs1.9 cmEPSS1.0 (>1.0cm) LVDs3.5 (2.5-4.0cm) PWs2.0 cm <Conclusion> Technically difficult study due to poor acoustical windows and pt's ventilator. Normal left ventricular chamber size,. Global LV hypokinesis. Left ventricular ejection fraction estimated to be 35-40% No evidence of left ventricular hypertrophy. Anterior Echo-free space, may be due to pericardial fat or effusion. All other cardiac chamber sizes are within normal limits. Focal aortic valve sclerosis with adequate cusp excursion. Thickened mitral valve leaflets with normal excursion. Mitral annulus and aortic root calcification. Pulmonic valve not well visualized. Normal tricuspid valve structure. IVC at normal size with physiologic collapse. A color flow and spectral Doppler study was performed and revealed: Trace aortic regurgitation. Trace mitral regurgitation. Mitral diastolic velocities suggest reduced left ventricular relaxation c/w mild LV diastolic dysfunction (Grade I ). Trace tricuspid regurgitation. Tricuspid systolic velocities suggests peak right ventricular systolic pressure of 15 mmHg. Pulmonic regurgitation present.
--- NOTE | 2020-08-16 02:10 | Cardiology Report ---
APPROVED REPORT EKG Measurement Heart [id number] <Conclusion> Sinus tachycardia Voltage criteria for left ventricular hypertrophy ST & T wave abnormality, consider inferolateral ischemia Abnormal ECG
== END 2020-08-15 21:00 | DRG 720 ==
LOC: EDBD 13:00 → EDBEDREQSVC 14:58 → EDBEDREQ 14:58 → EMR 15:37 → ICU 15:48 → EDBEDREQ 17:50 → 2W 08-04 23:32
PROC: 5A1955Z Respiratory Ventilation, Greater than 96 Consecutive Hours (ICD-10-PCS; principal; 2020-08-01)
PROC: 06HM33Z Insertion of Infusion Device into Right Femoral Vein, Percutaneous Approach (ICD-10-PCS; 2020-08-03)
PROC: 5A1D70Z Performance of Urinary Filtration, Intermittent, Less than 6 Hours Per Day (ICD-10-PCS; 2020-08-03)
PROC: 05HM33Z Insertion of Infusion Device into Right Internal Jugular Vein, Percutaneous Approach (ICD-10-PCS; 2020-08-07)
DX: A41.9 Sepsis, unspecified organism (principal); I21.4 Non-ST elevation (NSTEMI) myocardial infarction; N39.0 Urinary tract infection, site not specified; N17.9 Acute kidney failure, unspecified; G93.41 Metabolic encephalopathy; J96.21 Acute and chronic respiratory failure with hypoxia; Z93.0 Tracheostomy status; Z93.1 Gastrostomy status; I12.0 Hypertensive chronic kidney disease with stage 5 chronic kidney disease or end stage renal disease; E11.22 Type 2 diabetes mellitus with diabetic chronic kidney disease; N18.5 Chronic kidney disease, stage 5; Z74.01 Bed confinement status; Z99.11 Dependence on respirator [ventilator] status; Z86.73 Personal history of transient ischemic attack (TIA), and cerebral infarction without residual deficits; J18.9 Pneumonia, unspecified organism; D69.6 Thrombocytopenia, unspecified; D64.9 Anemia, unspecified; E87.6 Hypokalemia; R19.5 Other fecal abnormalities; Z20.822 Contact with and (suspected) exposure to COVID-19
CPT/HCPCS: 36415; 36569; 70450; 71045; 71250; 74176; 76937; 80048; 80053; 80202; 81003; 82270; 82306; 82550; 82553; 82570; 82728; 82803; 82962; 83605; 83615; 83735; 83880; 83970; 84100; 84132; 84300; 84484; 85007; 85025; 85379; 85610; 85730; 86140; 86703; 86705; 86706; 86709; 86710; 86803; 86850; 86900; 86901; 86920; 87040; 87070; 87081; 87086; 87181; 87205; 87324; 87340; 93005; 93306; 93970; 94002; 94003; 96361; 96365; 96367; 96375; 99291; J1815; J2765; J7030; J8499; U0002